=== PATIENT | male | born 1945 | race Caucasian/White ===

== ENCOUNTER 2017-08-13 02:13 | Emergency (ER) | payer MEDICARE, OTHER ==
[~2017-08-13] VITALS: Ht 167.6 cm; Wt 99.8 kg
[~2017-08-13 02:13] MED LIST: ACETAMINOPHEN325 M1 PO; AMIODARONE HCL200 MG PO; LEVOTHYROXINE75 MCG PO; LIOTHYRONINE SO5 MCG PO; METOPROLOL TART25 MG PO; MULTI-VITAMIN1 EACH; OMEPRAZOLE40 MG PO; SERTRALINE HCL50 MG PO; XARELTO20 MG PO
[2017-08-13] MEDS ORDERED: DULERA 200 MCG/13 GM INH (02:23)
[2017-08-13] MEDS ORDERED: TORSEMIDE10 MG PO (02:23)
[2017-08-13] MEDS ORDERED: PROAIR HFA INH8.5 GM INH (02:23)
[2017-08-13] MEDS ORDERED: GABAPENTIN300 MG PO (02:23)
[2017-08-13] MEDS ORDERED: TESTOSTERO200 MG/1 M IM (02:23)
[2017-08-13] MEDS ORDERED: XARELTO10 MG PO (02:23)
[2017-08-13] MEDS ORDERED: TETANUS/DIPHTHERIA TOX ADULT 0.5 ML SYR IM ONE (02:30)
--- NOTE | 2017-08-13 03:32 | Diagnostic Imaging Report ---
CHEST SINGLE (PORTABLE), 08/13/2017 2:33 AM Technique: CHEST SINGLE (PORTABLE) Comparison: 08/14/2016 Clinical history: Fall, found down Findings: Heart/mediastinum: Stable. Lungs/pleural spaces: Low lung volumes result in bibasilar vascular crowding/atelectasis. No pleural effusion or pneumothorax. Bones: No acute abnormality seen. Impression: Low lung volumes without acute abnormality Signed by: Dr Arlene Martin MD on 08/13/2017 3:29 AM
--- NOTE | 2017-08-13 03:34 | Diagnostic Imaging Report ---
PELVIS AP 1-2 VIEWS Comparison: None Clinical history: Fall, pain Findings: Moderate bilateral hip and visualized lumbosacral degenerative changes. No acute fracture or dislocation on single provided view. Impression: No acute bony abnormality Signed by: Dr Arlene Martin MD on 08/13/2017 3:30 AM
--- NOTE | 2017-08-13 03:54 | Diagnostic Imaging Report ---
EXAMINATION: Head CT without contrast. HISTORY:Fall. COMPARISON:None. TECHNIQUE: Multidetector axial images were obtained from the foramen magnum to the vertex without contrast. The images were reconstructed using brain and bone algorithms. Thin section brain images were reformatted into coronal and sagittal planes. Intravenous contrast: None IMAGE QUALITY: Acceptable. FINDINGS: Skull/scalp: Small left posterior parietal scalp edema/hematoma with few scattered foci of soft tissue emphysema. No acute depressed or displaced calvarial fracture. Parenchyma: Nonspecific few, scattered supratentorial white matter hypodensity are likely related to small vessel ischemic changes. No mass or acute major vascular territorial infarct. Arteries: No density suggestive of thrombosis. Dural sinuses: No abnormal density suggestive of thrombosis. Ventricles: Mild compensated dilatation due to volume loss. No hydrocephalus. Extra-axial spaces: Trace hyperdensity in anterior interhemispheric fissure, parasagittal frontal cortical sulci adjacent to the anterior interhemispheric fissure and cingulate sulcus represents trace acute subarachnoid hemorrhage. No midline shift or herniation. Brain volume: Generalized age-related cerebral volume loss. Craniocervical junction: No mass, Chiari malformation, or basilar invagination. Sella: No mass. Paranasal/mastoid sinuses: Imaged portions unremarkable. IMPRESSION: 1. Small left posterior parietal scalp edema/hematoma. No acute fracture. 2. Trace acute subarachnoid hemorrhage in the anterior interhemispheric fissure, cingulate sulcus and parasagittal frontal cortical sulci. No midline shift or herniation. 3. Mild supratentorial white matter microvascular ischemic changes. 4. Generalized age-related cerebral volume loss. Signed by: Dr. Estefany Glover M.D. on 08/13/2017 3:51 AM
--- NOTE | 2017-08-13 04:00 | Diagnostic Imaging Report ---
History: Fall. Comparison studies: None Technique: Axial images were obtained through the cervical region.. Coronal and sagittal images reconstructed from the axial data.. Intravenous contrast: None Findings: Fractures: None. Soft tissue injuries: None. Atlantoaxial articulation: Intact. Alignment: Loss of normal cervical lordosis is either positional or due to muscle spasm.. No scoliosis. Cervicomedullary junction: No abnormalities. The foramen magnum is patent. Soft tissues: No abnormalities. Vertebrae: No fractures, infection or neoplasm. Degenerative changes: C2-C3: Mild right and moderate left facet arthrosis without significant foraminal stenosis. C3-C4: Mild degenerative disc disease. Mild right foraminal stenosis due to facet and uncovertebral arthrosis. C4-C5: Mild degenerative disc disease. Moderate right and mild left foraminal stenosis due to facet and uncovertebral arthrosis. C5-C6: Moderate degenerative disc disease. Posterior disc osteophyte complex without canal stenosis. Mild right foraminal stenosis due to facet and uncovertebral arthrosis. C6-C7: Posterior disc osteophyte complex without canal stenosis. Mild right foraminal stenosis due to facet and uncovertebral arthrosis.. IMPRESSION: 1. No acute cervical spine fracture. Loss of normal cervical lordosis is either positional or due to muscle spasm. 2. Ligament, spinal cord and or vascular abnormalities cannot be excluded on the basis of this examination. 3. Cervical spondylosis as detailed above. Signed by: Dr. Estefany Glover M.D. on 08/13/2017 3:56 AM
[2017-08-13] MEDS ORDERED: AMINOCAPROIC ACID IV ONE (04:15)
[2017-08-13] MEDS ORDERED: SODIUM CHLORIDE 0.9% IV ONE (04:15)
[2017-08-13 04:25] LABS: BASOPHILS # (AUTO) 0.1 (0.0-0.1); BASOPHILS % 0.6 % (0.0-1.0); EOSINOPHILS # (AUTO) 0.1 (0.0-0.4); EOSINOPHILS % 0.8 % (0.0-6.0); HEMATOCRIT 50.8 % (38.2-49.6); HEMOGLOBIN 15.2 g/dL (14.0-18.0); LYMPHOCYTES % 11.8 % (18.0-39.1); MEAN CORPUSCULAR HEMOGLOBIN 24.4 pg (28-32); MEAN CORPUSCULAR HGB CONC 29.9 g/dL (31-35); MEAN CORPUSCULAR VOLUME 81.4 fL (81-99); MONOCYTES # (AUTO) 1.1 (0.2-0.8); MONOCYTES % 6.6 % (4.4-11.3); NEUTROPHILS # (AUTO) 13.6 (2.1-6.9); NEUTROPHILS % 79.2 % (38.7-80.0); PLATELET COUNT 285 x10e3/uL (140-360); RED BLOOD COUNT 6.24 x10e6/uL (4.3-5.7); RED CELL DISTRIBUTION WIDTH 18.7 % (11.7-14.4)
[2017-08-13 04:35] LABS: INR 1.53; PROTHROMBIN TIME 19.2 seconds (11.9-14.5)
[2017-08-13 04:45] LABS: ALBUMIN 3.3 g/dL (3.5-5.0); ALBUMIN/GLOBULIN RATIO 0.6 (0.8-2.0); ANION GAP 15.4 mmol/L (8-16); CALCIUM 9.5 mg/dL (8.4-10.2); CREATININE, SERUM 1.22 mg/dL (0.72-1.25); MAGNESIUM 2.2 MG/DL (1.3-2.1); POTASSIUM 4.4 mmol/L (3.5-5.1)
[2017-08-13 04:52] LABS: CREATINE KINASE MB 2.2 ng/mL (0.00-5.00); TROPONIN I 0.021 ng/mL (0-0.300)
== END 2017-08-13 04:45 | disposition short-term general hospital (02) ==
LOC: ER 02:13
DX: S06.6X0A Traumatic subarachnoid hemorrhage without loss of consciousness, initial encounter (principal); W18.09XA Striking against other object with subsequent fall, initial encounter; Y93.89 Activity, other specified; Y92.008 Other place in unspecified non-institutional (private) residence as the place of occurrence of the external cause; I48.91 Unspecified atrial fibrillation; E03.9 Hypothyroidism, unspecified; K21.9 Gastro-esophageal reflux disease without esophagitis
CPT/HCPCS: 36415; 70450; 71010; 72125; 72170; 80053; 82550; 82553; 83735; 84484; 85025; 85610; 85730; 86850; 86900; 90471; 90714; 99284; J7050

== ENCOUNTER → 2018-05-21 | Outpatient (CLI) | payer MEDICARE, OTHER ==
[~2018-05-21] MED LIST changes: +DULERA 200 MCG/13 GM INH; +GABAPENTIN300 MG PO; +PROAIR HFA INH8.5 GM INH; +TESTOSTERO200 MG/1 M IM; +TORSEMIDE10 MG PO; +XARELTO10 MG PO
--- NOTE | 2018-05-21 17:15 | Diagnostic Imaging Report ---
Exam: Thoracic spine 2 views History: Back pain Comparison: None. Findings: No fracture or malalignment. Multilevel degenerative disc disease with narrowing and endplate change. No abnormal soft tissue calcification or soft tissue defect. Impression: No acute osseous abnormality Moderate multilevel thoracic spondylosis Signed by: Dr. Samuel Estes M.D. on 05/21/2018 5:12 PM
== END ==
LOC: RAD 15:59
PROVIDERS: ATTEND Internal Medicine
DX: M54.6 Pain in thoracic spine (principal)
CPT/HCPCS: 72072

== ENCOUNTER → 2018-06-03 | Outpatient (CLI) | payer MEDICARE ==
--- NOTE | 2018-06-03 17:16 | Diagnostic Imaging Report ---
History:Right mid back pain Comparison studies: X-ray of the thoracic spine 2017 Technique: Sagittal T1, T2 and STIR without contrast; axial and coronal T2. Findings: Curvature: Normal kyphosis. No scoliosis. Paraspinal soft tissues: No signal abnormalities. Incidentally noted 1.0 cm epididymal inclusion cyst at the right paracentral mid back. Spinal cord: Normal in size and signal intensity through the tip of the conus at T12-L1 . Vertebrae: Normal in height and signal intensity. No fractures, infection or neoplasm. Disk spaces: Diffuse disc degeneration with low T2 signal and decreased intervertebral space. Disk herniations: None. Foramina: Patent. Spinal canal: Patent. IMPRESSION: 1. No acute abnormality. 2. Mild to moderate disc degeneration throughout the thoracic spine with patent canal and foramina Signed by: DR Raz Bills M.D. on 06/03/2018 5:12 PM
== END ==
LOC: MRI 15:09
PROVIDERS: ATTEND Internal Medicine
DX: M54.6 Pain in thoracic spine (principal)
CPT/HCPCS: 72146

== ENCOUNTER 2018-10-04 04:16 | Emergency (ER) | payer MEDICARE ==
[~2018-10-04] VITALS: Ht 167.6 cm; Wt 99.8 kg
--- OUTSIDE RECORDS SUMMARY | 2018-10-04 04:18 | XMS REPORT | Clinical Summary ---
Author [facility] Address Unknown Phone Unavailable Care Team Providers Care Train Planner Name Role Phone Chaitanya Camarena PCP Allergies No Known Allergies Medications End Date Status Medication Sig Dispensed Refills Start Date Active rivaroxaban (XARELTO) 20 Take by mouth 0 mg Tab tablet daily. Active omeprazole (PRILOSEC) 20 Take 20 mg by 0 MG capsule mouth daily. Active sertraline (ZOLOFT) 50 MG Take 100 mg 0 tablet by mouth daily . Active testosterone cypionate Inject 0 (DEPOTESTOTERONE intramuscular CYPIONATE) 200 mg/mL ly every 14 injection (fourteen) days. Active amiodarone (PACERONE) 200 200 mg. 0 MG tablet 6 Active metoprolol (LOPRESSOR) 25 Take 25 mg by 0 MG tablet mouth. 7 Active albuterol HFA (PROAIR INHALE 2 0 HFA) 90 mcg/actuation (TWO) PUFFS 7 inhaler EVERY FOUR HOURS, NEEDED Active gabapentin (NEURONTIN) Take 600 mg 0 600 MG tablet by mouth 4 (four) times daily. 08/26/2018 levothyroxine (SYNTHROID, Take 1 tablet 30 tablet 1 LEVOTHROID) 125 MCG (125 mcg 8 tablet total) by mouth Every morning on an empty stomach. 08/26/2018 torsemide (DEMADEX) 20 MG Take 1 tablet 30 tablet 1 tablet (20 mg total) 8 by mouth daily. Active Problems Problem Noted Date SOB (shortness of breath) on exertion 08/20/2017 Atrial fibrillation with RVR 08/14/2016 Encounters Care Team Description Date Type Specialty Kirk Callahan MD Paroxysmal atrial fibrillation (HCC); Essential (primary) hypertension; Other specified hypothyroidism; Other nonrheumatic aortic valve disorders; Other hyperlipidemia; Other snf (current) drug therapy 12/24/2017 Hospital Encounter Kirk Callahan MD Paroxysmal atrial fibrillation (HCC); Essential (primary) hypertension; Other specified hypothyroidism; Other nonrheumatic aortic valve disorders; Other hyperlipidemia; Other snf (current) drug therapy 12/24/2017 Orders Only Lab Kirk Callahan MD Paroxysmal atrial fibrillation (HCC) (Primary Dx); Essential (primary) hypertension; Other specified hypothyroidism; Other nonrheumatic aortic valve disorders; Other hyperlipidemia; Other snf (current) drug therapy 12/18/2017 Outside Orders Central Scheduling after 10/03/2017 Social History Date Tobacco Use Types Packs/Day Years Used Never Smoker Smokeless Tobacco: Former Snuff Quit: 08/13/2016 User Tobacco Cessation: Counseling Given: Yes Alcohol Use Drinks/Week oz/Week Comments Yes 6 Cans of 3.6 beer Sex Assigned at Date Recorded Not on file Industry Job Start Date Occupation Not on file Not on file Not on file Travel End Travel History Travel Start No recent travel history available. 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 CBC W/PLT COUNT & AUTO Routine 12/24/2017 Paroxysmal atrial DIFFERENTIAL 9:40 AM CDT fibrillation (HCC) Essential (primary) hypertension Other specified hypothyroidism Other nonrheumatic aortic valve disorders Other hyperlipidemia 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 CBC W/PLT COUNT & AUTO Routine 12/24/2017 Paroxysmal atrial DIFFERENTIAL 9:40 AM CDT fibrillation (HCC) Essential (primary) hypertension Other specified hypothyroidism Other nonrheumatic aortic valve disorders Other hyperlipidemia Other snf (current) drug therapy LIPID PANEL Routine 12/24/2017 Paroxysmal atrial 9:40 AM CDT fibrillation (HCC) Essential (primary) hypertension Other specified hypothyroidism Other nonrheumatic aortic valve disorders Other hyperlipidemia Other snf (current) drug therapy COMPREHENSIVE METABOLIC Routine 12/24/2017 Paroxysmal atrial PANEL 9:40 AM CDT fibrillation (HCC) Essential (primary) hypertension Other specified hypothyroidism Other nonrheumatic aortic valve disorders Other hyperlipidemia Other snf (current) drug therapy after 10/03/2017 Results * XR chest 2 views (12/24/2017 9:48 AM CDT) Narrative Performed At FINAL REPORT [facility] HISTORY : Paroxysmal atrial fibrillation [I48.0]. Comparison: 08/20/2017 Comment: Two views of the chest, PA and lateral, were obtained. The cardiac silhouette is within normal limits. There is no pleural effusion, pneumothorax or infiltrate. No lytic or blastic abnormalities. There is elevation of the right hemidiaphragm. Multilevel degenerative disc changes of the thoracolumbar spine are seen. There is atherosclerotic vascular disease. A lap band is in place. Impression: No acute cardiothoracic abnormalities. No significant interval change. Signed: Andrade Edwards MD Report Verified Date/Time:12/24/2017 10:33:32 Reading Location: [address] Radiology Reading Room Procedure Note Interface, External Ris In - 12/24/2017 10:35 AM CDT FINAL REPORT HISTORY : Paroxysmal atrial fibrillation [I48.0]. Comparison: 08/20/2017 Comment: Two views of the chest, PA and lateral, were obtained. The cardiac silhouette is within normal limits. There is no pleural effusion, pneumothorax or infiltrate. No lytic or blastic abnormalities. There is elevation of the right hemidiaphragm. Multilevel degenerative disc changes of the thoracolumbar spine are seen. There is atherosclerotic vascular disease. A lap band is in place. Impression: No acute cardiothoracic abnormalities. No significant interval change. Signed: Andrade Edwards MD Report Verified Date/Time: 12/24/2017 10:33:32 Reading Location: [address] Radiology Reading Room Performing Organization Address City/State/Zipcode Phone Number [facility] * CBC with platelet count + automated diff (12/24/2017 9:40 AM CDT) WBC 10.5 3.5 - 10.5 K/L [facility] RBC 5.56 4.63 - 6.08 M/L [facility] Hemoglobin 13.3 (L) 13.7 - 17.5 GM/DL [facility] Hematocrit 45.9 40.1 - 51.0 % [facility] MCV 82.6 79.0 - 92.2 fL [facility] MCH 23.9 (L) 25.7 - 32.2 pg [facility] MCHC 29.0 (L) 32.3 - 36.5 GM/DL [facility] RDW 19.9 (H) 11.6 - 14.4 % [facility] Platelets 301 150 - 450 K/CU MM [facility] MPV 9.6 9.4 - 12.4 fL [facility] nRBC 0 0 - 0 /100 WBC [facility] % Neutros 68 % [facility] % Lymphs 20 % [facility] % Monos 8 % [facility] % Eos 3 % [facility] % Baso 1 % [facility] # Neutros 7.12 (H) 1.78 - 5.38 K/L [facility] # Lymphs 2.05 1.32 - 3.57 K/L [facility] # Monos 0.85 (H) 0.30 - 0.82 K/L [facility] # Eos 0.27 0.04 - 0.54 K/L [facility] # Baso 0.11 (H) 0.01 - 0.08 K/L [facility] Immature 1 0 - 1 % [facility] Granulocytes-Relative [facility] Specimen Blood Performing Organization Address City/[facility] Phone Number [facility] [phone] [place] [address] [facility] * Lipid panel (12/24/2017 9:40 AM CDT) Triglycerides 73 mg/dL [facility] Cholesterol 214 mg/dL [facility] HDL 56 mg/dL [facility] LDL Calculated 143 mg/dL [facility] Specimen Blood Narrative Performed At Triglyceride Reference Range: [facility] Low Risk <150 [facility] [id number] High Risk 200-499 Very High Risk>=500 Cholesterol Reference Range: Low Risk <200 [id number] High Risk>240 HDL Cholesterol Reference Range: Low Risk >=60 High Risk <40 LDL Cholesterol Reference Range: Optimal<100 Near [id number] Very High >=190 Performing Organization Address City/State/Zipcode Phone Number [facility] [address] [place] [address] [facility] * Comprehensive metabolic panel (12/24/2017 9:40 AM CDT) Protein, Total 8.4 (H) 6.0 - 8.3 gm/dL [facility] Albumin 4.2 3.5 - 5.0 g/dL [facility] Alkaline Phosphatase 77 40 - 150 U/L [facility] Total Bilirubin 0.5 0.2 - 1.2 mg/dL [facility] Sodium 141 136 - 145 meq/L [facility] Potassium 5.4 (H) 3.5 - 5.1 meq/L [facility] Chloride 101 98 - 107 meq/L [facility] CO2 27 22 - 29 meq/L [facility] BUN 30 (H) 7 - 21 mg/dL [facility] Creatinine 1.63 (H) 0.57 - 1.25 mg/dL [facility] Glucose 115 (H) 70 - 105 mg/dL [facility] Calcium 10.0 8.4 - 10.2 mg/dL [facility] AST 26 5 - 34 U/L [facility] ALT 10 6 - 55 U/L [facility] EGFR 42Comment: ESTIMATED GFR IS mL/min/1.[address] [facility] NOT ACCURATE CREATININE [facility] CLEARANCE IN PREDICTING GLOMERULAR FILTRATION RATE. ESTIMATED GFR IS NOT APPLICABLE FOR DIALYSIS PATIENTS. Specimen Blood Performing Organization Address City/State/Zipcode Phone Number [facility] [address] [place] [phone] [facility] after 10/03/2017 Insurance Payer Benefit Subscriber ID Type Phone Address Plan / Group [facility] xxxxxxxxx MEDICARE MGD CARE MEDICARE HMO Advance Directives For more information, please contact: [address] [phone] Date Inactivated Comments Code Status Date Activated 08/25/2017 5:30 PM Full Code 08/24/2017 3:57 AM This code status was determined by: Patient 08/15/2016 4:35 PM Full Code 08/14/2016 11:45 PM This code status was determined by: Patient
--- OUTSIDE RECORDS SUMMARY | 2018-10-04 04:18 | XMS REPORT | Clinical Summary ---
Author Author [employer] Address Unknown Phone Unavailable Care Team Providers Care Otolaryngology Teacher Name Role Phone Chaitanya Camarena MD PCP Allergies No Known Allergies Medications End Date Status Medication Sig Dispensed Refills Start Date Active XARELTO 20 mg tablet Take 20 mg by 1 mouth once 7 daily. with food Active torsemide (DEMADEX) 10 MG Take 10 mg by 3 tablet mouth every 7 morning. Active omeprazole (PriLOSEC) 20 Take 20 mg by 1 MG capsule mouth once 7 daily. Active levothyroxine (SYNTHROID, Take 125 mcg 2 LEVOXYL) 75 mcg tablet by mouth once 7 daily. Active sertraline (ZOLOFT) 100 TAKE 1 TABLET 0 MG tablet BY MOUTH 7 EVERY DAY ORALLY 90 Active testosterone cypionate INJECT 1 ML 3 (DEPOTESTOTERONE ONCE EVERY 2 7 CYPIONATE) 200 mg/mL WEEKS injection Active valsartan (DIOVAN) 80 MG Take 80 mg by 0 tablet mouth 2 (two) times a day. Active albuterol (PROAIR HFA) 90 Inhale 2 0 mcg/actuation inhaler puffs every 6 (six) hours as needed for wheezing. Active budesonide-formoterol Inhale 2 0 (SYMBICORT) 160-4.5 puffs 2 (two) mcg/actuation inhaler times a day. 04/22/2019 Active carbidopa-levodopa Take 1 tablet 60 tablet 11 (SINEMET CR) 50-200 mg by mouth 2 8 per CR tabletIndications: (two) times a Parkinson disease (HCC) day. Active gabapentin (NEURONTIN) TAKE 1 TABLET 120 tablet 2 600 mg tabletIndications: BY MOUTH FOUR 8 Neuropathy TIMES A DAY Active gabapentin (NEURONTIN) TAKE 1 TABLET 120 tablet 2 600 mg tabletIndications: BY MOUTH FOUR 8 Neuropathy TIMES A DAY 02/06/2018 Discontinued PROAIR HFA 90 INHALE 2 11 mcg/actuation inhaler (TWO) PUFFS 7 EVERY FOUR HOURS, NEEDED 12/27/2017 Discontinued amIODarone (PACERONE) 200 Take 200 mg 3 MG tablet by mouth once 7 daily. 12/27/2017 Discontinued DULERA 200-5 Inhale 2 11 mcg/actuation inhaler puffs 2 (two) 7 times a day. 10/05/2017 Discontinued gabapentin (NEURONTIN) Take 600 mg 2 600 mg tablet by mouth 4 7 (four) times a day. 12/27/2017 Discontinued diltiazem CD (CardIZEM TAKE 1 4 CD) 180 MG 24 hr capsule CAPSULE (180 8 MG) BY MOUTH DAILY IN THE MORNING 02/06/2018 Discontinued aspirin (ECOTRIN) 81 MG Take 81 mg by 0 enteric coated tablet mouth daily. 11/22/2017 Discontinued carbidopa-levodopa Take 1 tablet 90 tablet 11 (SINEMET) 25-100 mg per by mouth 3 8 tablet (three) times a day. 12/25/2017 Discontinued gabapentin (NEURONTIN) Take 1 tablet 120 tablet 2 600 mg tabletIndications: (600 mg 8 Neuropathy total) by mouth 4 (four) times a day. 11/22/2017 Discontinued carbidopa-levodopa Take 1 tablet 60 tablet 11 (SINEMET CR) 25-100 mg by mouth 2 8 per CR tablet (two) times a day. 04/22/2018 Discontinued carbidopa-levodopa Take 1 tablet 60 tablet 11 (SINEMET CR) 50-200 mg by mouth 2 8 per CR tablet (two) times a day. 03/18/2018 Discontinued gabapentin (NEURONTIN) TAKE 1 TABLET 120 tablet 2 600 mg tabletIndications: BY MOUTH FOUR 8 Neuropathy TIMES A DAY 01/27/2018 traMADol (ULTRAM) 50 mg Take 1 tablet 60 tablet 0 tabletIndications: Other (50 mg total) 8 osteoarthritis of spine, by mouth cervical region every 12 (twelve) hours as needed for severe pain for up to 31 days. 01/26/2018 cyclobenzaprine Take 1 tablet 60 tablet 3 (FLEXERIL) 5 mg tablet (5 mg total) 8 by mouth every 12 (twelve) hours as needed for muscle spasms for up to 30 days. 05/30/2018 Discontinued gabapentin (NEURONTIN) TAKE 1 TABLET 120 tablet 2 600 mg tabletIndications: BY MOUTH FOUR 8 Neuropathy TIMES A DAY Active Problems Not on file Encounters Care Team Description Date Type Specialty Nia Banuelos MA Neuropathy 05/30/2018 Refill Neurology Anabell Fregoso MD Neuropathy 05/04/2018 Refill Neurology Nia Banuelos MA Parkinson disease (Primary Dx) 04/22/2018 Refill Neurology Anabell Fregoso MD Neuropathy 03/18/2018 Refill Neurology Anabell Fregoso MD Parkinson's disease (Primary Dx) 02/06/2018 Office Visit Neurology Anabell Fregoso MD Other osteoarthritis of spine, cervical region (Primary Dx) 12/27/2017 Office Visit Neurology Anabell Fregoso MD Neuropathy 12/25/2017 Refill Neurology Anabell Fregoso MD Cervical stenosis of spine; Myelopathy 12/07/2017 Hospital Radiology Encounter Anabell Fregoso MD Fatigue, unspecified type (Primary Dx); Cervical stenosis of spine; Myelopathy 11/22/2017 Office Visit Neurology Nia Banuelos MA Neuropathy (Primary Dx) 10/05/2017 Refill Neurology after 10/03/2017 Family History Relation Name Status Comments Father Mother Social History Date Tobacco Use Types Packs/Day Years Used Former Smoker Smokeless Tobacco: Current User Alcohol Use Drinks/Week oz/Week Comments Yes 28 Cans of 21.0 beer 7 Standard drinks or equivalent Sex Assigned at Date Recorded Not on file Industry Job Start Date Occupation Not on file Not on file Not on file Travel End Travel History Travel Start No recent travel history available. Last Filed Vital Signs Time Taken Vital Sign Reading 02/06/2018 11:27 AM CDT Blood Pressure 117/76 02/06/2018 11:27 AM CDT Pulse 85 02/06/2018 11:27 AM CDT Temperature 37 C (98.6 F) 02/06/2018 11:27 AM CDT Respiratory Rate 20 - Oxygen Saturation - - Inhaled Oxygen - Concentration 02/06/2018 11:27 AM CDT Weight 103 kg (228 lb) 02/06/2018 11:27 AM CDT Height 167.6 cm (5' 6") 02/06/2018 11:27 AM CDT Body Mass Index 36.8 Plan of Treatment Health Maintenance Due Date Last Done Comments COLON CANCER SCREENING 1995 SHINGLES VACCINES (#1) 1995 65+ PNEUMOCOCCAL VACCINE 2010 (1 of 2 - PCV13) PNEUMOCOCCAL 2010 POLYSACCHARIDE VACCINE AGE 65 AND OVER INFLUENZA VACCINE 03/13/2018 Procedures Comments Procedure Name Priority Date/Time Associated Diagnosis MRI CERVICAL SPINE WO Routine 12/07/2017 Cervical stenosis of CONTRAST 1:03 PM CDT spine Myelopathy after 10/03/2017 Results * MRI Cervical Spine Wo Contrast (12/07/2017 1:03 PM CDT) Narrative Performed At [facility] EXAMINATION:MRI CERVICAL SPINE WO CONTRAST CLINICAL HISTORY:M48.02 Spinal stenosiscervical region, G95.9 Disease of spinal cordunspecified, Ataxia COMPARISON: None. FINDINGS: Noncontrast MRI of the cervical spine is interpreted. The cervical cord is normal in volume and in signal intensity. Bone marrow signal is normal. C2-3: Moderate left facet arthrosis. Mild left foraminal stenosis. C3-4: Moderate loss of disc height. Slight grade 1 retrolisthesis. Mild bilateral facet arthrosis. Mild bilateral foraminal stenosis. Mild canal stenosis. C4-5: Prominent right facet arthrosis. Trace grade 1 anterolisthesis. Minimal disc bulge. Moderate right foraminal stenosis. C5-6: Moderate loss of disc height. Mild disc bulge. Mild bilateral vertebral hypertrophy. Mild bilateral facet arthrosis. Moderate right and mild left foraminal stenosis. Mild canal stenosis. C6-7: Moderate loss of disc height. Slight grade 1 retrolisthesis. Minimal dorsal endplate spurring. Mild uncovertebral hypertrophy bilaterally. Mild bilateral foraminal stenosis. Mild canal narrowing. C7-T1: Mild bilateral facet arthrosis. Trace grade 1 anterolisthesis. The paraspinous soft tissues are unremarkable. IMPRESSION: Moderate cervical spondylosis. Multilevel mild canal narrowing. Moderate spondylotic foraminal stenosis on the right at C4-5 and C5-6. [facility]-[id number] Procedure Note Hm Interface, Radiology Results 12/07/2017 2:00 PM CDT EXAMINATION: MRI CERVICAL SPINE WO CONTRAST CLINICAL HISTORY: M48.02 Spinal stenosis cervical region, G95.9 Disease of spinal cord unspecified, Ataxia COMPARISON: None. FINDINGS: Noncontrast MRI of the cervical spine is interpreted. The cervical cord is normal in volume and in signal intensity. Bone marrow signal is normal. C2-3: Moderate left facet arthrosis. Mild left foraminal stenosis. C3-4: Moderate loss of disc height. Slight grade 1 retrolisthesis. Mild bilateral facet arthrosis. Mild bilateral foraminal stenosis. Mild canal stenosis. C4-5: Prominent right facet arthrosis. Trace grade 1 anterolisthesis. Minimal disc bulge. Moderate right foraminal stenosis. C5-6: Moderate loss of disc height. Mild disc bulge. Mild bilateral vertebral hypertrophy. Mild bilateral facet arthrosis. Moderate right and mild left foraminal stenosis. Mild canal stenosis. C6-7: Moderate loss of disc height. Slight grade 1 retrolisthesis. Minimal dorsal endplate spurring. Mild uncovertebral hypertrophy bilaterally. Mild bilateral foraminal stenosis. Mild canal narrowing. C7-T1: Mild bilateral facet arthrosis. Trace grade 1 anterolisthesis. The paraspinous soft tissues are unremarkable. IMPRESSION: Moderate cervical spondylosis. Multilevel mild canal narrowing. Moderate spondylotic foraminal stenosis on the right at C4-5 and C5-6. [facility]-[id number] Performing Organization Address City/State/Zipcode Phone Number [facility] [address] [place] [address] after 10/03/2017 Insurance Payer Benefit Subscriber ID Type Phone Address Plan / Group [facility] MEDICARE [facility] xxxxxxxxx [facility] MEDICARE COMPLETE Advance Directives Patient has advance care planning documents on file. For more information, jesus esparza contact: Rock Santana [address] [place] [address]
--- OUTSIDE RECORDS SUMMARY | 2018-10-04 04:20 | XMS REPORT | Continuity of Care Document ---
Author Author [facility] Interface Address Unknown Phone Unavailable Problems Problem Status Onset Date Classification Date Reported Comments Source OPEN ABD WOUND Active 09/25/2018 [facility] WOUND ABD Active 09/10/2018 [facility] PERITONEAL ABSCESS Active 09/03/2018 [facility] PERITONITIS Active 09/03/2018 [facility] WOUND Active 08/07/2018 [facility] CUTANEOUS ABSCESS OF ABDOMINAL WALL Active 07/16/2018 [facility] DX: [id number] (PRIMARY) HYPERTENSION Active 06/24/2018 [facility] FEVER/ ABDOMINAL Active 04/04/2018 [facility] Traumatic subdural hemorrhage with loss of consciousness of unspecified duration, initial encounter 09/04/2017 12/06/2017 [facility] [place] HIP Active 08/13/2017 [facility] [place] LFLT TRANSFER #[id number] Active 08/13/2017 [facility] SAH/SCALP LAC Active 08/13/2017 [facility] BEDDED OUTPATIENT/EVALUATION FOR DRAIN P Active 02/16/2017 [facility] OUTPATIENT/EVALUATION FRO DRAIN PLACEMEN Active 02/07/2017 [facility] VENTRAL HERNIA Active 09/19/2016 [facility] SBO/HERNIA Active 09/07/2016 [facility] Atrial fibrillation Resolved Problem 12/06/2017 [facility] [place] CKD stage 3, GFR 30-59 ml/min(<span ID="[id number]">Confirmed</span>) Resolved Problem 12/06/2017 [facility] [place] Facial neuropathy Resolved Problem 12/06/2017 [facility] [place] GERD (<span ID="[id number]">Confirmed</span>) Resolved Problem 12/06/2017 [facility] [place] HTN (<span ID="[id number]">Confirmed</span>) Resolved Problem 12/06/2017 [facility] [place] Hypothyroid Resolved Problem 12/06/2017 [facility], [facility] [place] Incisional hernia Resolved Problem 12/06/2017 [facility], [facility] [place] Obesity Active Problem 12/06/2017 [facility], [facility] [place] Atrial fibrillation Resolved Problem 09/08/2018 [facility] CKD stage 3, GFR 30-59 ml/min(<span ID="[id number]">Confirmed</span>) Resolved Problem 09/08/2018 [facility] COPD (<span ID="[id number]">Confirmed</span>) Active Problem 09/08/2018 [facility] Facial neuropathy Resolved Problem 09/08/2018 [facility] GERD (<span ID="[id number]">Confirmed</span>) Active Problem 09/08/2018 [facility] HTN (<span ID="[id number]">Confirmed</span>) Resolved Problem 09/08/2018 [facility] Hypothyroid Resolved Problem 09/08/2018 [facility] Incisional hernia Resolved Problem 09/08/2018 [facility] Obesity Active Problem 09/08/2018 [facility] YANDEL (<span ID="[id number]">Confirmed</span>)<sup>1</sup> Active Problem 09/08/2018 INSTRUCTED PT TO BRING CPAP TO DOS [facility] Peritonitis, unspecified 09/08/2018 [facility] Final: Ventral hernia without obstruction or gangrene 10/12/2016 [facility] NONTRAUMATIC ACUTE SUBDURAL HEMORRHAGE Active [facility] PERITONITIS, UNSPECIFIED Active [facility] SEPSIS, UNSPECIFIED ORGANISM Active [facility] OTHER SPECIFIED CONGENITAL DEFORMITIES Active [facility] VENTRAL HERNIA WITHOUT OBSTRUCTION OR GA Active [facility] Medications Medication Details Route Status Patient Instructions Ordering Provider Order Date Source *RN-DO NOT give 21:00 vanc on 09/06 till trough drawn *RN-DO NOT give 21:00 vanc on 09/06 till trough drawn, Attn:RN, Drug form: MISC, Route: MISC, ONCE, 09/06/18 20:00:00 MOLDER, Stop date: 09/06/18 20:00:00 MOLDER Inactive 09/07/2018 [facility] cefepime 1 g injection 1 gm, IV, Q8H, X 6 week, # 126 bag, 0 Refill(s), given to patient Active 09/06/2018 [facility] vancomycin 1.25 g/150 mL-NaCl 0.9% intravenous solution 1.25 gm, IV, Q24H, X 6 week, # 42 bag, 0 Refill(s), given to patient Active 09/06/2018 [facility] Xarelto 20 mg, 1 tab, Route: PO, Drug form: TAB, QPM, Dosing Weight 105.966, kg, Start date: 09/05/18 17:00:00 MOLDER, Duration: 30 day, Stop date: 10/04/18 17:00:00 CSTNotes: (Same as: Xarelto) Administer with food No Longer Active 09/05/2018 [facility] V[place] 8.4 gm, Route: PO, Drug form: PDR/REC, Daily, Dosing Weight 105.966, kg, Start date: 09/05/18 9:00:00 MOLDER, Duration: 30 day, Stop date: 10/04/18 9:00:00 MOLDER No Longer Active 09/05/2018 [facility] valsartan 80 mg, 1 tab, Route: PO, Drug form: TAB, BID, Dosing Weight 105.966, kg, Start date: 09/05/18 9:00:00 MOLDER, Duration: 30 day, Stop date: 10/04/18 17:00:00 CSTNotes: Same as Diovan No Longer Active 09/05/2018 [facility] pantoprazole 40 mg, 1 tab, Route: PO, Drug form: ECTAB, Daily, Dosing Weight 105.966, kg, Start date: 09/05/18 9:00:00 MOLDER, Duration: 30 day, Stop date: 10/04/18 9:00:00 CSTNotes: Tablet should not be chewed or c rushed. (Same as: Protonix) No Longer Active 09/05/2018 [facility] torsemide 20 mg, 1 tab, Route: PO, Drug form: TAB, Daily, Dosing Weight 105.966, kg, Start date: 09/05/18 9:00:00 MOLDER, Duration: 30 day, Stop date: 10/04/18 9:00:00 CSTNotes: (Same As: Demadex) No Longer Active 09/05/2018 [facility] Thyroxine 125 microgram, 1 tab, Route: PO, Drug form: TAB, QAM, Dosing Weight 105.966, kg, Start date: 09/05/18 9:00:00 MOLDER, Duration: 30 day, Stop date: 10/04/18 9:00:00 CSTNotes: Take 1 hour before or 2 hours after meal; Enteral feeds may interefere with the absorption of this medication. (Same as:Levothroid) No Longer Active 09/05/2018 [facility] Carbidopa 50 MG / Levodopa 200 MG Extended Release Tablet 1 tab, Route: PO, Drug Form: ERTAB, Dosing Weight 105.966, kg, BID, Start date: 09/05/18 9:00:00 MOLDER, Duration: 30 day, Stop date: 10/04/18 17:00:00 CSTNotes: "Do Not Crush" Take with milk or food. (Same As: Sinemet CR) No Longer Active 09/05/2018 [facility] Symbicort 160/4.5 inhalation aerosol with adapter 2 puff, Route: INHALATION, Drug Form: AERO/A, Dosing Weight 105.966, kg, BID, Start date: 09/05/18 9:00:00 MOLDER, Duration: 30 day, Stop date: 10/04/18 17:00:00 MOLDER No Longer Active 09/05/2018 [facility] cefepime 1 gm, Route: IVPB, [id number], Dosing Weight 105.966, kg, (CrCl >/=50 ml/min), Start date: 09/05/18 2:00:00 MOLDER, Duration: 7 day, Stop date: 09/11/18 18:00:00 MOLDER, ABX Indication: Skin/Soft Tissue InfectionNotes: (Same As: Maxipime) MEDICATION WASTE Product Size: 1000 mg Product Wasted: ___ mg No Longer Active 09/05/2018 [facility] ATTN RN please bring pt home med to pharmacy to be labeled ATTN RN please bring pt home med to pharmacy to be labeled, ATTN RN, Drug form: MISC, Route: MISC, QSHIFT, 09/05/18 0:00:00 MOLDER, Duration: 30 day, Stop date: 10/04/18 16:00:00 MOLDER No Longer Active 09/05/2018 [facility] gabapentin 600 MG Oral Tablet 600 mg, 2 cap, Route: PO, Drug form: CAP, Q6H, Dosing Weight 105.966, kg, Start date: 09/05/18 0:00:00 MOLDER, Duration: 30 day, Stop date: 10/04/18 18:00:00 CSTNotes: (Same as: Neurontin) No Longer Active 09/05/2018 [facility] Sertraline 100 mg, 1 tab, Route: PO, Drug form: TAB, Bedtime, Dosing Weight 105.966, kg, Start date: 09/04/18 21:00:00 MOLDER, Duration: 30 day, Stop date: 10/03/18 21:00:00 CSTNotes: (Same as: Zoloft) No Longer Active 09/05/2018 [facility] albuterol 2.5 mg, 3.01 mL, Route: NEB, Drug form: SOLN, RQ6H, Start date: 09/04/18 20:00:00 MOLDER, Duration: 30 day, Stop date: 10/04/18 14:00:00 CSTNotes: SEE RT DOCUMENTATION (Same as: Proventil) No Longer Active 09/05/2018 [facility] Pulmicort Respules 0.5 mg, 2 mL, Route: NEB, Drug form: SUSP, RBID, Start date: 09/04/18 20:00:00 MOLDER, Duration: 30 day, Stop date: 10/04/18 8:00:00 CSTNotes: (Same As: Pulmicort) No Longer Active 09/05/2018 [facility] Vancomycin 1 ea, Route: MISC, ONCALL, Dosing Weight 105.966, kg, Start date: 09/04/18 20:00:00 MOLDER, Duration: 7 day, Stop date: 09/11/18 19:59:00 MOLDER, Pharmacy to dose, ABX Indication: Skin/Soft Tissue Infection Inactive 09/05/2018 [facility] vancomycin + Sodium Chloride 0.9% IV 250 mL 1,250 mg, Route: IVPB, [id number], Start date: 09/04/18 20:00:00 MOLDER, Duration: 7 day, Stop date: 09/10/18 21:00:00 MOLDER, ABX Indication: Intra-abdominal InfectionNotes: TIME CRITICAL MEDICATION (Same As: Vancocin) Infusion rate 2001 mg: infuse over 2.5 hours For adult patients only: Round to nearest 250 mg per Medical Staff approval MEDICATION WASTE Product Size: 1000 mg Product Wasted: ___ mg No Longer Active 09/05/2018 [facility] NS 1,000 mL 1,000 mL, Rate: 75 ml/hr, Infuse over: 13.3 hr, Route: IV, Dosing Weight 105.966 kg, Total Volume: 1,000, Start date: 09/04/18 19:15:00 MOLDER, Duration: 30 day, Stop date: 10/04/18 19:14:00 MOLDER, 2.22, m2 No Longer Active 09/05/2018 [facility] albuterol 2.5 mg, 3.01 mL, Route: NEB, Drug form: SOLN, RQ6H, PRN Wheezing, Start date: 09/04/18 18:16:00 MOLDER, Duration: 30 day, Stop date: 10/04/18 18:15:00 CSTNotes: SEE RT DOCUMENTATION (Same as: Proventil) No Longer Active 09/05/2018 [facility] cefepime 1 gm, Route: IVPB, [id number], Dosing Weight 105.966, kg, (CrCl 30 - 49 ml/min), Start date: 09/04/18 18:00:00 MOLDER, Duration: 10 day, Stop date: 09/14/18 6:00:00 MOLDER, ABX Indication: Intra-abdominal InfectionNotes: (Same As: Maxipime) MEDICATION WASTE Product Size: 1000 mg Product Wasted: ___ mg Inactive 09/05/2018 [facility] Vancomycin 1,000 mg, Route: IVPB, Drug form: INJ, [id number], Dosing Weight 105.966, kg, Start date: 09/04/18 18:00:00 MOLDER, Duration: 10 day, Stop date: 09/14/18 6:00:00 MOLDER, ABX Indication: Intra-abdominal Infection Inactive 09/05/2018 [facility] 200 ACTUAT Albuterol 0.09 MG/ACTUAT Metered Dose Inhaler [ProAir HFA] 180 microgram, 2 puff, Route: INHALER, Drug Form: AERO/A, Dosing Weight 105.966, kg, Q6H, PRN, Start date: 09/04/18 17:34:00 MOLDER, Duration: 30 day, Stop date: 10/04/18 17:33:00 MOLDER, asthma Inactive 09/04/2018 [facility] tramadol hydrochloride 50 MG Oral Tablet 50 mg, 1 tab, Route: PO, Drug form: TAB, Q6H, Dosing Weight 105.966, kg, PRN Pain Score 7-10, Start date: 09/04/18 17:34:00 MOLDER, Duration: 30 day, Stop date: 10/04/18 17:33:00 CSTNotes: Not to exceed 400mg/day. (Same As: Ultram) No Longer Active 09/04/2018 [facility] Omnipaque 300 injectable solution 100 mL, Route: IVP, Drug Form: SOLN, Dosing Weight 105.966, kg, ONCALL, GFR > 45 mL/min, Start date: 09/04/18 16:00:00 MOLDER, Duration: 1 doses or timesNotes: (Same as:Omnipaque 300). WASTE: F/P - Black; E - POPVOX Trash Bin No Longer Active 09/04/2018 [facility] Acetaminophen 325 MG / Hydrocodone Bitartrate 10 MG Oral Tablet [[place] 10/325] 1 tab, PO, Q6H, PRN for pain, # 24 tab, 0 Refill(s) Active 09/04/2018 [facility] Triamcinolone Acetonide 0.001 MG/MG Oral Paste 1 appl, PO, TID, # 5 gm, 0 Refill(s) Active 09/04/2018 [facility] Nicotine 21 mg, 1 patch, Route: TOP, Drug form: ERFILM, Daily, Dosing Weight 102.273, kg, PRN as needed for smoking cessation, Start date: 09/03/18 14:32:00 MOLDER, Duration: 30 day, Stop date: 10/03/18 14:31:00 CS TNotes: (Same as: Habitrol) "Remove old patch before application of new patch" WASTE: F/P - P Waste Black; E - P Waste Black No Longer Active 09/03/2018 [facility] Seroquel 25 mg, 1 tab, Route: PO, Drug form: TAB, BID, Dosing Weight 102.273, kg, PRN Agitation, Start date: 09/03/18 14:32:00 MOLDER, Duration: 30 day, Stop date: 10/03/18 14:31:00 CSTNotes: (Same as: SEROquel) No Longer Active 09/03/2018 [facility] Hydralazine 10 mg, 0.5 mL, Route: IVP, Drug form: INJ, Q4H, Dosing Weight 102.273, kg, PRN Hypertension, Priority: Routine, Start date: 09/03/18 14:32:00 MOLDER, Duration: 30 day, Stop date: 10/03/18 14:31:00 CSTNotes: (Same as: Apresoline) Push over 5 minutes No Longer Active 09/03/2018 [facility] magnesium citrate 58.2 MG/ML Oral Solution 300 ml, Route: PO, Drug Form: LIQ, Dosing Weight 102.273, kg, ONCE, PRN Constipation, Start date: 09/03/18 14:32:00 CSTNotes: (Same as: Citrate of Magnesia) Concentration: 1.745 gm / 30 mL No Longer Active 09/03/2018 [facility] Acetaminophen 325 MG / Hydrocodone Bitartrate 5 MG Oral Tablet [[place] 5/325] 1 tab, Route: PO, Drug Form: TAB, Dosing Weight 102.273, kg, Q6H, PRN Pain Score 1-3, Start date: 09/03/18 14:32:00 MOLDER, Duration: 30 day, Stop date: 10/03/18 14:31:00 CSTNotes: (Same as: [place] 325/5) Do not exceed 4gm/day of acetaminophen. No Longer Active 09/03/2018 [facility] Morphine 2 mg, 1 mL, Route: IVP, Drug form: SOLN, Q4H, Dosing Weight 102.273, kg, PRN Pain Score 7-10, Start date: 09/03/18 14:32:00 MOLDER, Duration: 30 day, Stop date: 10/03/18 14:31:00 MOLDER No Longer Active 09/03/2018 [facility] Ondansetron 4 mg, 2 mL, Route: IVP, Drug form: INJ, Q6H, Dosing Weight 102.273, kg, PRN Nausea & Vomiting, Start date: 09/03/18 14:32:00 MOLDER, Duration: 30 day, Stop date: 10/03/18 14:31:00 CSTNotes: (Same as: Zofran) MEDICATION WASTE Product Size: 4 mg Product Wasted: ___ mg No Longer Active 09/03/2018 [facility] Bisacodyl 10 mg, 1 supp, Route: IL, Drug form: SUPP, Daily, Dosing Weight 102.273, kg, PRN Constipation, Start date: 09/03/18 14:32:00 MOLDER, Duration: 30 day, Stop date: 10/03/18 14:31:00 CSTNotes: (Same As: Dulcolax, Bisco-Lax) No Longer Active 09/03/2018 [facility] Dextrose 50% Syringe 12.5 gm, 25 mL, Route: IVP, Drug Form: INJ, Dosing Weight 102.273, kg, PRN, PRN Blood Glucose Results, Start date: 09/03/18 14:32:00 MOLDER, Duration: 30 day, Stop date: 10/03/18 14:31:00 MOLDER No Longer Active 09/03/2018 [facility] POLYETHYLENE GLYCOL 3350 17 gm, 1 pkt, Route: PO, Drug form: PWDR, Daily, Dosing Weight 102.273, kg, PRN Constipation, Start date: 09/03/18 14:32:00 MOLDER, Duration: 30 day, Stop date: 10/03/18 14:31:00 CSTNotes: Dissolve in 8 oz of water or juice. (Same as: Miralax) No Longer Active 09/03/2018 [facility] Glucagon 1 mg, Route: IM, Drug form: PDR/INJ, PRN, Dosing Weight 102.273, kg, PRN Blood Glucose Results, Start date: 09/03/18 14:32:00 MOLDER, Duration: 30 day, Stop date: 10/03/18 14:31:00 MOLDER No Longer Active 09/03/2018 [facility] Melatonin 3 mg, 1 tab, Route: PO, Drug form: TAB, Bedtime, Dosing Weight 102.273, kg, PRN Insomnia, Start date: 09/03/18 14:32:00 MOLDER, Duration: 30 day, Stop date: 10/03/18 14:31:00 CSTNotes: (Same as: Melatonin) No Longer Active 09/03/2018 [facility] Diphenhydramine 25 mg, 1 tab, Route: PO, Drug form: TAB, Q6H, Dosing Weight 102.273, kg, PRN as needed for allergy symptoms, Start date: 09/03/18 14:32:00 MOLDER, Duration: 30 day, Stop date: 10/03/18 14:31:00 MOLDER No Longer Active 09/03/2018 [facility] Acetaminophen 650 mg, 2 tab, Route: PO, Drug form: TAB, Q6H, Dosing Weight 102.273, kg, PRN For Temp > 100.4 F, Start date: 09/03/18 14:32:00 MOLDER, Duration: 30 day, Stop date: 10/03/18 14:31:00 CSTNotes: Do not ex ceed 4 gm/day. (Same as: Tylenol) No Longer Active 09/03/2018 [facility] Trazodone 50 mg, 1 tab, Route: PO, Drug form: TAB, Bedtime, Dosing Weight 102.273, kg, PRN Insomnia, Start date: 09/03/18 14:32:00 MOLDER, Duration: 30 day, Stop date: 10/03/18 14:31:00 CSTNotes: (Same As: Desyrel) No Longer Active 09/03/2018 [facility] magnesium citrate 58.2 MG/ML Oral Solution 300 ml, Route: PO, Dosing Weight 102.273, kg, ONCE, PRN Constipation, Start date: 09/03/18 14:28:00 MOLDER No Longer Active 09/03/2018 [facility] Acetaminophen 325 MG / Hydrocodone Bitartrate 5 MG Oral Tablet [[place] 5/325] 1 tab, Route: PO, Drug Form: TAB, Dosing Weight 102.273, kg, Q6H, PRN Pain Score 1-3, Start date: 09/03/18 14:28:00 MOLDER, Duration: 30 day, Stop date: 10/03/18 14:27:00 MOLDER No Longer Active 09/03/2018 [facility] Morphine 2 mg, Route: IVP, Q4H, Dosing Weight 102.273, kg, PRN Pain Score 7-10, Start date: 09/03/18 14:28:00 MOLDER, Duration: 30 day, Stop date: 10/03/18 14:27:00 MOLDER No Longer Active 09/03/2018 [facility] Seroquel 25 mg, Route: PO, BID, Dosing Weight 102.273, kg, PRN Agitation, Start date: 09/03/18 14:28:00 MOLDER, Duration: 30 day, Stop date: 10/03/18 14:27:00 MOLDER No Longer Active 09/03/2018 [facility] Hydralazine 10 mg, Route: IVP, Q4H, Dosing Weight 102.273, kg, PRN Hypertension, Priority: Routine, Start date: 09/03/18 14:28:00 MOLDER, Duration: 30 day, Stop date: 10/03/18 14:27:00 MOLDER No Longer Active 09/03/2018 [facility] Nicotine 21 mg, Route: TOP, Drug form: ERFILM, Daily, Dosing Weight 102.273, kg, PRN as needed for smoking cessation, Start date: 09/03/18 14:28:00 MOLDER, Duration: 30 day, Stop date: 10/03/18 14:27:00 MOLDER No Longer Active 09/03/2018 [facility] Dextrose 50% Syringe 50 mL, Route: IVP, Dosing Weight 102.273, kg, PRN, PRN Blood Glucose Results, Start date: 09/03/18 14:28:00 MOLDER, Duration: 30 day, Stop date: 10/03/18 14:27:00 MOLDER No Longer Active 09/03/2018 [facility] Melatonin 3 mg, Route: PO, Bedtime, Dosing Weight 102.273, kg, PRN Insomnia, Start date: 09/03/18 14:28:00 MOLDER, Duration: 30 day, Stop date: 10/03/18 14:27:00 MOLDER No Longer Active 09/03/2018 [facility] Acetaminophen 650 mg, Route: PO, Drug form: TAB, Q6H, Dosing Weight 102.273, kg, PRN For Temp > 100.4 F, Start date: 09/03/18 14:28:00 MOLDER, Duration: 30 day, Stop date: 10/03/18 14:27:00 MOLDER No Longer Active 09/03/2018 [facility] Diphenhydramine 25 mg, Route: PO, Q6H, Dosing Weight 102.273, kg, PRN as needed for allergy symptoms, Start date: 09/03/18 14:28:00 MOLDER, Duration: 30 day, Stop date: 10/03/18 14:27:00 MOLDER No Longer Active 09/03/2018 [facility] Trazodone 50 mg, Route: PO, Bedtime, Dosing Weight 102.273, kg, PRN Insomnia, Start date: 09/03/18 14:28:00 MOLDER, Duration: 30 day, Stop date: 10/03/18 14:27:00 MOLDER No Longer Active 09/03/2018 [facility] Ondansetron 4 mg, Route: IVP, Q6H, Dosing Weight 102.273, kg, PRN Nausea & Vomiting, Start date: 09/03/18 14:28:00 MOLDER, Duration: 30 day, Stop date: 10/03/18 14:27:00 MOLDER No Longer Active 09/03/2018 [facility] Bisacodyl 10 mg, Route: IL, Daily, Dosing Weight 102.273, kg, PRN Constipation, Start date: 09/03/18 14:28:00 MOLDER, Duration: 30 day, Stop date: 10/03/18 14:27:00 MOLDER No Longer Active 09/03/2018 [facility] POLYETHYLENE GLYCOL 3350 17 gm, Route: PO, Daily, Dosing Weight 102.273, kg, PRN Constipation, Start date: 09/03/18 14:28:00 MOLDER, Duration: 30 day, Stop date: 10/03/18 14:27:00 MOLDER No Longer Active 09/03/2018 [facility] Glucagon 1 mg, Route: IM, PRN, Dosing Weight 102.273, kg, PRN Blood Glucose Results, Start date: 09/03/18 14:28:00 MOLDER, Duration: 30 day, Stop date: 10/03/18 14:27:00 MOLDER No Longer Active 09/03/2018 [facility] Protonix 40 mg, 1 tab, Route: PO, Drug form: ECTAB, Before Dinner, Start date: 08/14/17 16:30:00 MOLDER, Duration: 30 day, Stop date: 09/12/17 16:30:00 CSTNotes: Tablet should not be chewed or crushed. (Same as: Protonix) Inactive 08/14/2017 [facility] heparin sodium, porcine 2500 UNT/ML Injectable Solution 5,000 unit, 1 mL, Route: SUB-Q, Drug form: INJ, Q8H, Dosing Weight 100, kg, Start date: 08/14/17 16:00:00 MOLDER, Duration: 30 day, Stop date: 09/13/17 8:00:00 CSTNotes: porcine heparin Inactive 08/14/2017 [facility] Levetiracetam 500 MG Oral Tablet [Keppra] 500 mg=1 tab, PO, Q12H, # 12 tab, 0 Refill(s) Active 08/14/2017 [facility] Thiamine 100 mg, 1 tab, Route: PO, Drug form: TAB, Daily, Dosing Weight 100, kg, Start date: 08/14/17 9:00:00 MOLDER, Duration: 5 day, Stop date: 08/18/17 9:00:00 CSTNotes: (Same As: Vitamin B1) Inactive 08/14/2017 [facility] multivitamin 1 tab, Route: PO, Drug Form: TAB, Dosing Weight 100, kg, Daily, Start date: 08/14/17 9:00:00 MOLDER, Duration: 5 day, Stop date: 08/18/17 9:00:00 CSTNotes: (Same as:Thera) WASTE: F/P - Black; E - Municipal Trash Bin Take with food. Inactive 08/14/2017 [facility] Folic Acid 1 mg, 1 tab, Route: PO, Drug form: TAB, Daily, Dosing Weight 100, kg, Start date: 08/14/17 9:00:00 MOLDER, Duration: 5 day, Stop date: 08/18/17 9:00:00 CSTNotes: (Same as: Folvite) Inactive 08/14/2017 [facility] torsemide 10 mg, 1 tab, Route: PO, Drug form: TAB, Daily, Dosing Weight 100, kg, Start date: 08/14/17 9:00:00 MOLDER, Duration: 30 day, Stop date: 09/12/17 9:00:00 CSTNotes: (Same As: Demadex) Inactive 08/14/2017 [facility] Levetiracetam 500 MG Oral Tablet [Keppra] 500 mg, 1 tab, Route: PO, Drug form: TAB, Q12H, Dosing Weight 100, kg, Start date: 08/14/17 9:00:00 MOLDER, Duration: 6 day, Stop date: 08/19/17 21:00:00 CSTNotes: (Same as:Keppra) Inactive 08/14/2017 [facility] Triiodothyronine 5 microgram, 1 tab, Route: PO, Drug form: TAB, Daily, Dosing Weight 100, kg, Start date: 08/14/17 9:00:00 MOLDER, Duration: 30 day, Stop date: 09/12/17 9:00:00 CSTNotes: (Same as: Cytomel) Inactive 08/14/2017 [facility] Omeprazole 20 mg, Route: PO, Drug form: ECTAB, Daily, Dosing Weight 100, kg, Start date: 08/14/17 9:00:00 MOLDER, Duration: 30 day, Stop date: 09/12/17 9:00:00 MOLDER No Longer Active 08/14/2017 [facility] Thyroxine 50 microgram, 1 tab, Route: PO, Drug form: TAB, Q630AM, Dosing Weight 100, kg, Start date: 08/14/17 6:30:00 MOLDER, Duration: 30 day, Stop date: 09/12/17 6:30:00 CSTNotes: Take 1 hour before or 2 hours after meal; Enteral feeds may interefere with the absorption of this medication.(Same as:Levothroid, Synthroid) Inactive 08/14/2017 [facility] gabapentin 600 MG Oral Tablet 600 mg, 2 cap, Route: PO, Drug form: CAP, QID, Dosing Weight 100, kg, Priority: NOW, Start date: 08/13/17 22:07:00 MOLDER, Duration: 30 day, Stop date: 09/12/17 21:00:00 CSTNotes: (Same as: Neurontin) No Longer Active 08/14/2017 [facility] Ranitidine 300 mg, 20 mL, Route: PO, Drug form: SYRP, Bedtime, Dosing Weight 100, kg, Start date: 08/13/17 21:00:00 MOLDER, Duration: 30 day, Stop date: 09/11/17 21:00:00 CSTNotes: (Same as:Zantac) Take before or with meals No Longer Active [facility] [place] metoprolol tartrate 25 mg, 1 tab, Route: PO, Drug form: TAB, Q12H, Dosing Weight 100, kg, Start date: 08/13/17 21:00:00 MOLDER, Duration: 30 day, Stop date: 09/12/17 9:00:00 CSTNotes: (Same as: Lopressor) No Longer Active 08/14/2017 [facility] [place] Regular Insulin, Human 100 UNT/ML Injectable Solution 3 unit, 0.03 mL, Route: SUB-Q, Drug form: SOLN, PRN, Dosing Weight 100, kg, PRN Abnormal Lab Result, Start date: 08/13/17 20:03:00 MOLDER, Duration: 30 day, Stop date: 09/12/17 20:02:00 CSTNotes: (Same as: Humulin R) Roll in palms of hands gently; Do not shake vigorously. "single patient use only" (Restricted to patients requiring a dose > 60 units) WASTE: F/P - Black; E - POPVOX Trash Bin Stable for 28 days at room temperature Expires in days from Date No Longer Active 08/14/2017 [facility] [place] Dextrose 50% Syringe 6.25 gm, 12.5 mL, Route: IVP, Drug Form: INJ, Dosing Weight 100, kg, PRN, PRN Abnormal Lab Result, Start date: 08/13/17 20:03:00 MOLDER, Duration: 30 day, Stop date: 09/12/17 20:02:00 MOLDER No Longer Active 08/14/2017 [facility] [place] Amiodarone 200 mg, 1 tab, Route: PO, Drug form: TAB, Daily, Dosing Weight 100, kg, Priority: NOW, Start date: 08/13/17 20:03:00 MOLDER, Stop date: 09/12/17 21:00:00 CSTNotes: (Same as: Cordarone) No Longer Active 08/14/2017 [facility] [place] Acetaminophen 325 MG / Hydrocodone Bitartrate 5 MG Oral Tablet [[place] 5/325] 1 tab, Route: PO, Drug Form: TAB, Dosing Weight 100, kg, Q6H, PRN Pain Score 1-3, Start date: 08/13/17 20:03:00 MOLDER, Duration: 30 day, Stop date: 09/12/17 20:02:00 CSTNotes: (Same as: [place] 325/5) Do not exceed 4gm/day of acetaminophen. No Longer Active 08/14/2017 [facility] [place] Labetalol 10 mg, 2 mL, Route: IVP, Drug form: INJ, Q15Min, Dosing Weight 100, kg, PRN Hypertension, Start date: 08/13/17 18:38:00 MOLDER, Duration: 30 day, Stop date: 09/12/17 18:37:00 MOLDER No Longer Active 08/14/2017 [facility] [place] Hydralazine 20 mg, 1 mL, Route: IVP, Drug form: INJ, Q4H, Dosing Weight 100, kg, PRN Hypertension, Start date: 08/13/17 18:38:00 MOLDER, Duration: 30 day, Stop date: 09/12/17 18:37:00 CSTNotes: (Same as: Apresoline) Push over 5 minutes No Longer Active 08/14/2017 [facility] [place] Dilaudid 0.5 mg, Route: IVP, ONCE, kg, Priority: STAT, Start date: 08/13/17 16:07:00 MOLDER, Stop date: 08/13/17 16:07:00 MOLDER Inactive 08/13/2017 [facility] [place] ranitidine 300 mg oral capsule 300 mg=1 cap, PO, Bedtime, 0 Refill(s) Active 08/13/2017 [facility] [place] levothyroxine 50 mcg (0.05 mg) oral tablet 50 microgram=1 tab, PO, Daily, 0 Refill(s) Active 08/13/2017 [facility] [place] torsemide 10 mg oral tablet 10 mg=1 tab, PO, Daily, 0 Refill(s) Active 08/13/2017 [facility] [place] AMIODarone 200 mg oral tablet 200 mg=1 tab, PO, Daily, # 90 tab, 3 Refill(s) Active 08/13/2017 [facility] [place] gabapentin 600 MG Oral Tablet 600 mg=1 tab, PO, QID, 0 Refill(s) Active 08/13/2017 [facility] [place] metoprolol tartrate 25 mg oral tablet 25 mg=1 tab, PO, BID, 0 Refill(s) Active 08/13/2017 [facility] [place] rivaroxaban 20 MG Oral Tablet [Xarelto] 20 mg=1 tab, PO, QPM, 0 Refill(s) No Longer Active 08/13/2017 [facility] [place] liothyronine 5 mcg oral tablet 5 microgram=1 tab, PO, Daily, 0 Refill(s) Active 08/13/2017 [facility] [place] omeprazole 20 mg oral enteric coated tablet 20 mg=1 tab, PO, Daily, 0 Refill(s) Active 08/13/2017 [facility] [place] Dilaudid 0.5 mg, 0.25 mL, Route: IVP, Drug form: INJ, ONCE, kg, Priority: STAT, Start date: 08/13/17 9:29:00 MOLDER, Stop date: 08/13/17 9:29:00 CSTNotes: Same as Dilaudid Inactive 08/13/2017 [facility] [place] Lidocaine Hydrochloride 10 MG/ML Injectable Solution 10 mg, 1 ml, Route: SUB-Q, Drug Form: INJ, kg, ONCE, Start date: 08/13/17 9:18:00 MOLDER, Stop date: 08/13/17 9:18:00 CSTNotes: (Same as: Xylocaine) Inactive 08/13/2017 [facility] [place] Saline Flush 0.9% 10 ml, Route: IVP, Drug Form: INJ, kg, Q12H, Start date: 08/13/17 9:00:00 MOLDER, Duration: 30 day, Stop date: 09/11/17 21:00:00 CSTNotes: Same as: BD Posiflush Sterile No Longer Active 08/13/2017 [facility] [place] sennosides, HALFWAY 8.6 mg, 1 tab, Route: PO, Drug Form: TAB, kg, Q12H, Start date: 08/13/17 9:00:00 MOLDER, Duration: 30 day, Stop date: 09/11/17 21:00:00 CSTNotes: (Same as: Senokot) No Longer Active 08/13/2017 [facility] [place] Docusate 100 mg, 1 cap, Route: PO, Drug form: CAP, Q12H, kg, Start date: 08/13/17 9:00:00 MOLDER, Duration: 30 day, Stop date: 09/11/17 21:00:00 CSTNotes: (Same as: Colace) (Do Not Crush) No Longer Active 08/13/2017 [facility] [place] Levetiracetam 500 mg, Route: IV, Q12H, kg, Start date: 08/13/17 9:00:00 MOLDER, Duration: 7 day, Stop date: 08/19/17 21:00:00 CSTNotes: Same as Keppra Mix with 100 mL NS, LR or D5W MEDICATION WASTE Product Size: 500 mg Product Wasted: ___ mg Inactive 08/13/2017 [facility] [place] Fentanyl 25 microgram, Route: IV, Drug form: INJ, ONCE, kg, PRN Pain Score 7-10, Start date: 08/13/17 8:00:00 MOLDER, Pediatric Dosing; For procedure; > 50 kg Inactive 08/13/2017 [facility] [place] Saline Flush 0.9% 10 ml, Route: IVP, Drug Form: INJ, kg, PRN, PRN Line Flush, Start date: 08/13/17 6:18:00 MOLDER, Duration: 30 day, Stop date: 09/12/17 6:17:00 CSTNotes: (Same as: BD Posiflush) No Longer Active 08/13/2017 [facility] [place] Ondansetron 4 mg, 2 mL, Route: IVP, Drug form: INJ, Q8H, kg, PRN Nausea & Vomiting, Start date: 08/13/17 6:18:00 MOLDER, Duration: 30 day, Stop date: 09/12/17 6:17:00 CSTNotes: (Same as: Zofran) MEDICATION WASTE Product Size: 4 mg Product Wasted: ___ mg No Longer Active 08/13/2017 [facility] [place] Bisacodyl 10 mg, 1 supp, Route: IL, Drug form: SUPP, Daily, kg, PRN Constipation, Start date: 08/13/17 6:18:00 MOLDER, Duration: 30 day, Stop date: 09/12/17 6:17:00 CSTNotes: (Same As: Dulcolax, [place]isco-Lax) No Longer Active 08/13/2017 [facility] [place] Acetaminophen 325 MG / Hydrocodone Bitartrate 10 MG Oral Tablet 1 tab, Route: PO, Drug Form: TAB, kg, Q4H, PRN Pain Score 4-6, Start date: 08/13/17 6:18:00 MOLDER, Duration: 30 day, Stop date: 09/12/17 6:17:00 CSTNotes: Do not exceed 4gm/day of acetaminophen. (Same as: [place] 325/10) Inactive 08/13/2017 [facility] [place] Acetaminophen 650 mg, 2 tab, Route: PO, Drug form: TAB, Q4H, kg, PRN Pain 1-3/Temp > 99.5 F, Start date: 08/13/17 6:18:00 MOLDER, Duration: 30 day, Stop date: 09/12/17 6:17:00 CSTNotes: Do not exceed 4 gm/day. (Same as: Tylenol) No Longer Active 08/13/2017 [facility] [place] Acetaminophen 325 MG / Hydrocodone Bitartrate 5 MG Oral Tablet 1 tab, Route: PO, Drug Form: TAB, kg, Q4H, PRN Pain Score 1-3, Start date: 08/13/17 6:18:00 MOLDER, Duration: 30 day, Stop date: 09/12/17 6:17:00 CSTNotes: (Same as: [place] 325/5) Do not exceed 4gm/day of acetaminophen. Inactive 08/13/2017 [facility] [place] Sodium Chloride 0.9% IV 1,000 mL 1,000 mL, Rate: 50 ml/hr, Infuse over: 20 hr, Route: IV, Total Volume: 1,000, Start date: 08/13/17 6:18:00 MOLDER, Duration: 30 day, Stop date: 09/12/17 6:17:00 MOLDER No Longer Active 08/13/2017 [facility] [place] Keppra 1,000 mg, Route: IV, ONCE, kg, Priority: NOW, Start date: 08/13/17 5:08:00 MOLDER, Stop date: 08/13/17 5:08:00 MOLDER Inactive 08/13/2017 [facility] [place] Saline Flush 0.9% 10 mL, Route: IVP, Drug Form: INJ, kg, PRN, PRN Line Flush, Start date: 08/13/17 5:07:00 MOLDER, Duration: 30 day, Stop date: 09/12/17 5:06:00 CSTNotes: Same as: BD Posiflush Sterile No Longer Active 08/13/2017 [facility] [place] Fentanyl 50 microgram, Route: IVP, Drug form: INJ, ONCE, Dosing Weight 90.909, kg, Start date: 02/16/17 15:02:00 CDT, Stop date: 02/16/17 15:02:00 CDT Inactive 02/16/2017 [facility] [place] Versed 0.5 mg, Route: IV, ONCE, Dosing Weight 90.909, kg, Start date: 02/08/17 10:30:00 CDT, Stop date: 02/08/17 10:30:00 CDT Inactive 02/08/2017 [facility] [place] Fentanyl 25 microgram, Route: IV, ONCE, Dosing Weight 90.909, kg, Start date: 02/08/17 10:30:00 CDT, Stop date: 02/08/17 10:30:00 CDT, Inactive 02/08/2017 [facility] [place] Versed 0.5 mg, Route: IV, ONCE, Dosing Weight 90.909, kg, Start date: 02/08/17 10:00:00 CDT, Stop date: 02/08/17 10:00:00 CDT Inactive 02/08/2017 [facility] [place] Fentanyl 25 microgram, Route: IV, ONCE, Dosing Weight 90.909, kg, Start date: 02/08/17 10:00:00 CDT, Stop date: 02/08/17 10:00:00 CDT, Inactive 02/08/2017 [facility] [place] Fentanyl 50 microgram, Route: IV, ONCE, Dosing Weight 90.909, kg, Start date: 02/08/17 9:20:00 CDT, Stop date: 02/08/17 9:20:00 CDT, Inactive 02/08/2017 [facility] [place] Versed 1 mg, Route: IV, ONCE, Dosing Weight 90.909, kg, Start date: 02/08/17 9:20:00 CDT, Stop date: 02/08/17 9:20:00 CDT Inactive 02/08/2017 [facility] [place] melatonin 3 mg oral tablet 3 mg=1 tab, PO, Bedtime, PRN Sleep, 0 Refill(s) Active 10/09/2016 [facility] [place] Ibuprofen 400 MG Oral Tablet 400 mg=1 tab, PO, Q4H, PRN Pain, X 7 day, # 42 tab, 0 Refill(s) Active 10/09/2016 [facility] [place] tramadol hydrochloride 50 MG Oral Tablet 50 mg=1 tab, PO, Q6H, PRN Pain, X 7 day, # 28 tab, 0 Refill(s) Active 10/09/2016 [facility] [place] Trazodone 50 mg, 1 tab, Route: PO, Drug form: TAB, ONCE, Dosing Weight 84.091, kg, Start date: 10/08/16 23:12:00 MOLDER, Stop date: 10/08/16 23:12:00 MOLDER, ..Notes: (Same As: Michelle) Inactive 10/09/2016 [facility] [place] remove patch 1 patch, Route: TOP, Drug form: ERFILM, Q72H, Start date: 10/08/16 23:00:00 MOLDER, Duration: 1 day, Stop date: 10/08/16 23:00:00 CSTNotes: Remove old patch before application of new patch. Inactive 10/09/2016 [facility] [place] Trazodone Hydrochloride 50 MG Oral Tablet 50 mg, 1 tab, Route: PO, Drug form: TAB, ONCE, Dosing Weight 84.091, kg, PRN Anxiety, Start date: 10/08/16 18:14:00 CSTNotes: (Same As: Desyrel) Inactive 10/09/2016 [facility] [place] Melatonin 3 mg, 1 tab, Route: PO, Drug form: TAB, Bedtime, Dosing Weight 84.091, kg, PRN Sleep, Start date: 10/07/16 23:46:00 MOLDER, Duration: 30 day, Stop date: 11/06/16 23:45:00 CDTNotes: (Same as: Melatonin) No Longer Active 10/08/2016 [facility] [place] Xarelto 20 mg, 1 tab, Route: PO, Drug form: TAB, QPM, Dosing Weight 84.091, kg, Start date: 10/07/16 17:00:00 MOLDER, Duration: 30 day, Stop date: 11/05/16 17:00:00 CDTNotes: (Same as: Xarelto) Administer with food No Longer Active 10/07/2016 [facility] [place] pantoprazole 40 mg, Route: PO, Drug form: ECTAB, Before Breakfast, Dosing Weight 84.091, kg, Start date: 10/07/16 7:30:00 MOLDER, Duration: 30 day, Stop date: 11/05/16 7:30:00 CDT No Longer Active 10/07/2016 [facility] [place] Protonix 40 mg, 1 tab, Route: PO, Drug form: ECTAB, Daily, Start date: 10/06/16 11:30:00 MOLDER, Duration: 30 day, Stop date: 11/05/16 7:30:00 CDTNotes: Tablet should not be chewed or crushed. (Same as: Protonix) No Longer Active 10/06/2016 [facility] [place] Thyroxine 75 microgram, 1 tab, Route: PO, Drug form: TAB, Daily, Dosing Weight 84.091, kg, Start date: 10/06/16 11:30:00 MOLDER, Duration: 30 day, Stop date: 11/05/16 6:30:00 CDTNotes: Take 1 hour before or 2 hours after meal; Enteral feeds may interefere with the absorption of this medication. (Same as:Synthroid, Levothroid) No Longer Active 10/06/2016 [facility] [place] Sertraline 50 mg, 1 tab, Route: PO, Drug form: TAB, Daily, Dosing Weight 84.091, kg, Start date: 10/06/16 9:00:00 MOLDER, Duration: 30 day, Stop date: 11/04/16 9:00:00 CDTNotes: (Same as: Zoloft) No Longer Active 10/06/2016 [facility] [place] Omeprazole 20 mg, Route: PO, Drug form: DRC, Daily, Dosing Weight 84.091, kg, Start date: 10/06/16 9:00:00 MOLDER, Duration: 30 day, Stop date: 11/04/16 9:00:00 CDT Inactive 10/06/2016 [facility] [place] metoprolol tartrate 25 mg, 1 tab, Route: PO, Drug form: TAB, Q12H, Dosing Weight 84.091, kg, Start date: 10/06/16 9:00:00 MOLDER, Duration: 30 day, Stop date: 11/04/16 21:00:00 CDTNotes: (Same as: Lopressor) No Longer Active 10/06/2016 [facility] [place] Amiodarone 200 mg, 1 tab, Route: PO, Drug form: TAB, Daily, Dosing Weight 84.091, kg, Start date: 10/06/16 9:00:00 MOLDER, Stop date: 11/04/16 9:00:00 CDTNotes: (Same as: Cordarone) No Longer Active 10/06/2016 [facility] [place] Lovenox 40 mg, 0.4 mL, Route: SUB-Q, Drug form: INJ, [id number], Dosing Weight 84.091, kg, Start date: 10/06/16 9:00:00 MOLDER, Duration: 30 day, Stop date: 11/04/16 9:00:00 CDTNotes: (Same as: Lovenox) Inactive 10/06/2016 [facility] [place] heparin sodium, porcine 2500 UNT/ML Injectable Solution 5,000 unit, 1 mL, Route: SUB-Q, Drug form: INJ, Q8H, Dosing Weight 84.091, kg, Start date: 10/06/16 8:00:00 MOLDER, Duration: 30 day, Stop date: 11/05/16 0:00:00 CDTNotes: porcine heparin Inactive 10/06/2016 [facility] [place] Plasma-Lyte A PH-7.4 1000 ml INJ 1,000 mL 1,000 mL, Rate: 100 ml/hr, Infuse over: 10 hr, Route: IV, Dosing Weight 84.091 kg, Total Volume: 1,000, Start date: 10/06/16 7:25:00 MOLDER, Duration: 30 day, Stop date: 11/05/16 7:24:00 CDTNotes: WASTE: F/P - Sink; E - Municipal Trash Bin No Longer Active 10/06/2016 [facility] [place] Isolyte S PH-7.4 (Bolus) IV 500 mL, 0 ml/hr, Route: IV, Drug Form: SOLN, Dosing Weight 84.091, kg, ONCE, Start date: 10/06/16 5:51:00 MOLDER, Stop date: 10/06/16 5:51:00 CSTNotes: (Same as: Isolyte S PH7.4) Inactive 10/06/2016 [facility] [place] Insulin, Aspart, Human 1 unit, 0.01 mL, Route: SUB-Q, Drug form: SOLN, TID-Before Meals, Dosing Weight 84.091, kg, PRN Blood Glucose Results, Start date: 10/06/16 5:50:00 MOLDER, Duration: 30 day, Stop date: 11/05/16 5:49:00 CDTNotes: Roll in palms of hands gently; Do not shake vigorously. (Same as: NovoLOG) "single patient use only" WASTE: F/P - Black; E - Municipal Trash Bin Stable for 28 days at room temperature. Expires in days from Date No Longer Active 10/06/2016 [facility] [place] Dextrose 50% Syringe 25 gm, 50 mL, Route: IVP, Drug Form: INJ, Dosing Weight 84.091, kg, PRN, PRN Blood Glucose Results, Start date: 10/06/16 5:50:00 MOLDER, Duration: 30 day, Stop date: 11/05/16 6:49:00 CDT No Longer Active 10/06/2016 [facility] [place] Glucagon 1 mg, Route: IM, Drug form: PDR/INJ, PRN, Dosing Weight 84.091, kg, PRN Blood Glucose Results, Start date: 10/06/16 5:50:00 MOLDER, Duration: 30 day, Stop date: 11/05/16 6:49:00 CDT No Longer Active 10/06/2016 [facility] [place] Flomax 0.4 mg, 1 cap, Route: PO, Drug form: CAP, After Breakfast, Dosing Weight 84.091, kg, Priority: NOW, Start date: 10/05/16 22:54:00 MOLDER, Duration: 30 day, Stop date: 11/04/16 8:30:00 CDTNotes: (Same As: Flomax) "Do Not Crush" No Longer Active 10/06/2016 [facility] [place] Docusate Sodium 100 MG Oral Capsule 100 mg, 1 cap, Route: PO, Drug form: CAP, BID, Dosing Weight 84.091, kg, Start date: 10/05/16 17:00:00 MOLDER, Duration: 30 day, Stop date: 11/04/16 9:00:00 CDTNotes: (Same as: Colace) (Do Not Crush) No Longer Active 10/05/2016 [facility] [place] Labetalol 10 mg, 2 mL, Route: IVP, Drug form: INJ, Q5Min, Dosing Weight 84.091, kg, PRN Elevated BP, Start date: 10/05/16 16:07:00 MOLDER, Duration: 5 doses or times, Stop date: Limited # of times Inactive 10/05/2016 [facility] [place] Flumazenil 0.2 mg, 2 mL, Route: IVP, Drug form: INJ, PRN, Dosing Weight 84.091, kg, PRN Benzodiazepine Reversal, Initial dose, Start date: 10/05/16 16:07:00 MOLDER, Duration: 1 day, Stop date: 10/06/16 16:06:00 CS TNotes: (Same as: Romazicon) Inactive 10/05/2016 [facility] [place] Naloxone 0.4 mg, 1 mL, Route: IVP, Drug form: INJ, Q2MIN, Dosing Weight 84.091, kg, PRN Narcotic Reversal, Start date: 10/05/16 16:07:00 MOLDER, Duration: 8 doses or times, Stop date: Limited # of timesNotes: Same as Narcan Inactive 10/05/2016 [facility] [place] Ondansetron 4 mg, 2 mL, Route: IVP, Drug form: INJ, ONCE, Dosing Weight 84.091, kg, PRN Nausea & Vomiting, Start date: 10/05/16 16:07:00 CSTNotes: (Same as: Zofran) MEDICATION WASTE Product Size: 4 mg Product Wasted: ___ mg Inactive 10/05/2016 [facility] [place] Hydralazine 5 mg, 0.25 mL, Route: IVP, Drug form: INJ, Q20Min, Dosing Weight 84.091, kg, PRN Elevated BP, Start date: 10/05/16 16:07:00 MOLDER, Duration: 2 doses or times, Stop date: Limited # of timesNotes: (Same as: Apresoline) Push over 5 minutes Inactive 10/05/2016 [facility] [place] Oxycodone Hydrochloride 5 MG Oral Tablet 10 mg, 2 tab, Route: PO, Drug form: TAB, Q4H, Dosing Weight 84.091, kg, PRN Pain Score 7-10, Start date: 10/05/16 16:00:00 MOLDER, Duration: 30 day, Stop date: 11/04/16 15:59:00 CDTNotes: (Same as: Roxicodone) No Longer Active 10/05/2016 [facility] [place] Acetaminophen 1,000 mg, 2 tab, Route: PO, Drug form: TAB, Q6Hnow, Dosing Weight 84.091, kg, Start date: 10/05/16 16:00:00 MOLDER, Duration: 30 day, Stop date: 11/04/16 10:00:00 CDTNotes: Max acetaminophen 4000 mg/day (4 gm/day). (Same as: Tylenol Extra Strength) No Longer Active 10/05/2016 [facility] [place] gabapentin 300 mg, 1 cap, Route: PO, Drug form: CAP, Q8Hnow, Dosing Weight 84.091, kg, Start date: 10/05/16 16:00:00 MOLDER, Duration: 30 day, Stop date: 11/04/16 8:00:00 CDTNotes: (Same as: Neurontin) No Longer Active 10/05/2016 [facility] [place] Tramadol 100 mg, 2 tab, Route: PO, Drug form: TAB, Q6Hnow, Dosing Weight 84.091, kg, Start date: 10/05/16 16:00:00 MOLDER, Duration: 30 day, Stop date: 11/04/16 10:00:00 CDTNotes: Not to exceed 400mg/day. (Same As: Ultram) No Longer Active 10/05/2016 [facility] [place] celecoxib 200 mg, 2 cap, Route: PO, Drug form: CAP, [id number], Dosing Weight 84.091, kg, Start date: 10/05/16 16:00:00 MOLDER, Duration: 30 day, Stop date: 11/04/16 4:00:00 CDTNotes: NSAID. Please check indication. Not for seizure. (Same As: CeleBREX ) No Longer Active 10/05/2016 [facility] [place] ropivacaine Route: NERVE BLOCK, Continuous Rate: 10, ml/hr, Dosing Site: TAP Side: Left, INSPECTOR CHIEF dose 0 mL, 1 Hour limit: 10 mL, 200, mL, Start date: 10/05/16 15:58:00 MOLDER, Drug Form: INJ, Total volume: 200, mL, kg, Stop date: 11/04/16 15:57:00 CDTNotes: Same as: Naropin No Longer Active 10/05/2016 [facility] [place] Enoxaparin 40 mg, Route: SUB-Q, Drug form: INJ, [id number], Dosing Weight 84.091, kg, Start date: 10/05/16 15:00:00 MOLDER, Duration: 30 day, Stop date: 11/03/16 15:00:00 CDT Inactive 10/05/2016 [facility] [place] Ancef 1 gm, Route: IVPB, ONCE, Dosing Weight 84.091, kg, Start date: 10/05/16 11:50:00 MOLDER, Stop date: 10/05/16 11:50:00 MOLDER Inactive 10/05/2016 [facility] [place] Ofirmev 1,000 mg, 100 mL, Route: IV, Drug form: INJ, PRE OP, Start date: 10/05/16 6:00:00 MOLDER, Duration: 1 doses or times, Stop date: 10/05/16 23:00:00 CSTNotes: Infuse over 15 minutes Do not exceed 4gm/day of acetaminophen MEDICATION WASTE Product Size: 1000 mg Product Wasted: ___ mg No Longer Active 10/05/2016 [facility] [place] scopolamine 1 patch, Route: TOP, Drug form: ERFILM, PRE OP, Start date: 10/05/16 6:00:00 MOLDER, Duration: 1 doses or times, Stop date: 10/05/16 23:00:00 CSTNotes: Change patch every 72 hours (Same as: Transderm- Scop) Inactive 10/05/2016 [facility] [place] ceFAZolin 2 gm, 100 mL, Route: IVPB, Drug form: INJ, PRE OP, Start date: 10/05/16 6:00:00 MOLDER, Duration: 1 doses or times, Stop date: 10/05/16 23:00:00 CSTNotes: Same as: Ancef Inactive 10/05/2016 [facility] [place] Ondansetron 4 MG Disintegrating Tablet [Zofran] 4 mg=1 tab, PO, BID, PRN Nausea and Vomiting, Dissolve tab under tongue, X 5 day, # 10 tab, 0 Refill(s) Active 09/12/2016 [facility] [place] tramadol hydrochloride 50 MG Oral Tablet 50 mg=1 tab, PO, Q4H, X 3 day, # 18 tab, 0 Refill(s) Active 09/12/2016 [facility] [place] Acetaminophen 300 MG / Codeine Phosphate 30 MG Oral Tablet [Tylenol with Codeine #3] 1 - 2 tab, PO, Q6H, PRN Pain, X 4 day, # 32 tab, 0 Refill(s) Active 09/12/2016 [facility] [place] rivaroxaban 20 MG Oral Tablet [Xarelto] 20 mg=1 tab, PO, QPM, # 30 tab, 3 Refill(s) Active 09/12/2016 [facility] [place] Habitrol 14 mg, 1 patch, Route: TOP, Drug form: ERFILM, Daily, Start date: 09/12/16 9:00:00 MOLDER, Duration: 30 day, Stop date: 10/11/16 9:00:00 CSTNotes: (Same as: Habitrol) "Remove old patch before application of new patch" WASTE: F/P - P Waste Black; E - P Waste Black Inactive 09/12/2016 [facility] [place] tramadol hydrochloride 50 MG Oral Tablet 50 mg=1 tab, PO, Q4H, X 3 day, # 18 tab, 0 Refill(s) Inactive 09/12/2016 [facility] [place] Acetaminophen 300 MG / Codeine Phosphate 30 MG Oral Tablet [Tylenol with Codeine #3] 1 - 2 tab, PO, Q6H, PRN Pain, X 4 day, # 32 tab, 0 Refill(s) Inactive 09/12/2016 [facility] [place] Ondansetron 4 MG Disintegrating Tablet [Zofran] 4 mg=1 tab, PO, BID, PRN Nausea and Vomiting, Dissolve tab under tongue, X 5 day, # 10 tab, 0 Refill(s) Inactive 09/12/2016 [facility] [place] Amlodipine 2.5 mg, 1 tab, Route: PO, Drug form: TAB, Daily, Dosing Weight 84.091, kg, Start date: 09/11/16 9:00:00 MOLDER, Duration: 30 day, Stop date: 10/10/16 9:00:00 CSTNotes: (Same as: Norvasc) No Longer Active 09/11/2016 [facility] [place] Magnesium Sulfate 2 gm, 50 mL, Route: IVPB, Drug form: INJ, ONCE, Dosing Weight 84.091, kg, Start date: 09/11/16 1:15:00 MOLDER, Duration: 2 hr, Stop date: 09/11/16 1:15:00 CSTNotes: WASTE: F/P - Sink; E - Municipal Trash Bin Inactive 09/11/2016 [facility] [place] Plasma-Lyte A PH-7.4 1000 ml INJ 1,000 mL 1,000 mL, Rate: 75 ml/hr, Infuse over: 13.3 hr, Route: IV, Dosing Weight 84.091 kg, Total Volume: 1,000, Start date: 09/10/16 9:49:00 MOLDER, Duration: 30 day, Stop date: 10/10/16 9:48:00 CSTNotes: WASTE: F/P - Sink; E - [employer] Trash Bin No Longer Active 09/10/2016 [facility] Thyroxine 75 microgram, 1 tab, Route: PO, Drug form: TAB, Daily, Dosing Weight 84.091, kg, Start date: 09/10/16 7:00:00 MOLDER, Duration: 30 day, Stop date: 10/09/16 7:00:00 CSTNotes: Take 1 hour before or 2 hours after meal; Enteral feeds may interefere with the absorption of this medication. (Same as:Synthroid, Levothroid) No Longer Active 09/10/2016 [facility] metoprolol tartrate 25 mg, 1 tab, Route: PO, Drug form: TAB, Q12H, Dosing Weight 84.091, kg, Start date: 09/09/16 21:00:00 MOLDER, Duration: 30 day, Stop date: 10/09/16 9:00:00 CSTNotes: (Same as: Lopressor) No Longer Active 09/10/2016 [facility] Sertraline 50 mg, 1 tab, Route: PO, Drug form: TAB, Daily, Dosing Weight 84.091, kg, Start date: 09/09/16 15:30:00 MOLDER, Duration: 30 day, Stop date: 10/09/16 9:00:00 CSTNotes: (Same as: Zoloft) No Longer Active 09/09/2016 [facility] Diltiazem 120 mg, 1 cap, Route: PO, Drug form: ERCAP, Daily, Dosing Weight 84.091, kg, Start date: 09/09/16 15:30:00 MOLDER, Duration: 30 day, Stop date: 10/09/16 9:00:00 CSTNotes: (Same as: Cardizem CD) Do Not Crush Before meals. No Longer Active 09/09/2016 [facility] Amiodarone 200 mg, 1 tab, Route: PO, Drug form: TAB, Daily, Dosing Weight 84.091, kg, Start date: 09/09/16 15:00:00 MOLDER, Duration: 30 day, Stop date: 10/09/16 9:00:00 CSTNotes: (Same as: Cordarone) No Longer Active 09/09/2016 [facility] remove patch 1 patch, Route: TOP, Drug form: ERFILM, Daily, Start date: 09/09/16 9:00:00 MOLDER, Duration: 30 day, Stop date: 10/08/16 9:00:00 CSTNotes: Remove old patch before application of new patch. WASTE: F/P - P Waste Black; E - P Waste Black No Longer Active 09/09/2016 [facility] Hydralazine 10 mg, 0.5 mL, Route: IV, Drug form: INJ, Q6H, Dosing Weight 84.091, kg, PRN Hypertension, SBP>160mmHg, Start date: 09/09/16 0:08:00 MOLDER, Duration: 30 day, Stop date: 10/09/16 0:07:00 CSTNotes: (Same as: Apresoline) Push over 5 minutes No Longer Active 09/09/2016 [facility] Nicotine 21 mg, 1 patch, Route: TOP, Drug form: ERFILM, Daily, Dosing Weight 84.091, kg, Start date: 09/08/16 15:50:00 MOLDER, Duration: 30 day, Stop date: 10/08/16 9:00:00 CSTNotes: (Same as: Habitrol) "Remove old patch before application of new patch" WASTE: F/P - P Waste Black; E - P Waste Black No Longer Active 09/08/2016 [facility] phenol 1 spray, Route: TOP, TID, Drug form: SPRY, PRN Sore Throat, Start date: 09/08/16 7:44:00 MOLDER, Duration: 30 day, Stop date: 10/08/16 7:43:00 CSTNotes: Chloraseptic [place] (Same as: Chloraseptic, Sore Throat [place]) WASTE: F/P - Black; E - Municipal Trash Bin No Longer Active 09/08/2016 [facility] Lovenox 40 mg, 0.4 mL, Route: SUB-Q, Drug form: INJ, Q24H, Dosing Weight 84.091, kg, Start date: 09/07/16 18:00:00 MOLDER, Duration: 30 day, Stop date: 10/06/16 18:00:00 CSTNotes: (Same as: Lovenox) No Longer Active 09/08/2016 [facility] Protonix 40 mg, Route: IVP, Drug form: INJ, Daily, Dosing Weight 84.091, kg, Patient is NPO, Start date: 09/07/16 17:12:00 MOLDER, Duration: 30 day, Stop date: 10/07/16 9:00:00 CSTNotes: For IV push reconstitute with 10 ml 0.9% sodium chloride and push over 2 minutes. (Same as: Protonix) No Longer Active 09/07/2016 [facility] Sodium Chloride 0.154 MEQ/ML Injectable Solution 500 mL, 500 ml/hr, Infuse Over: 1 hr, Route: IV, 500, Drug form: INJ, ONCE, Priority: STAT, Dosing Weight 84.091 kg, Start date: 09/07/16 16:00:00 MOLDER, Duration: 1 doses or times, Stop date: 09/07/16 16:00:00 MOLDER Inactive 09/07/2016 [facility] diltiazem 120 mg/24 hours oral capsule, extended release 120 mg=1 cap, PO, Daily, # 90 cap, 0 Refill(s) Active 09/07/2016 [facility] Furosemide 40 MG Oral Tablet 40 mg=1 tab, PO, Daily Active 09/07/2016 [facility] metoprolol tartrate 25 mg oral tablet 25 mg=1 tab, PO, BID, # 60 tab, 0 Refill(s) Active 09/07/2016 [facility] sertraline 50 mg oral tablet 50 mg=1 tab, PO, Daily, # 30 tab, 1 Refill(s) Active 09/07/2016 [facility] levothyroxine 75 mcg (0.075 mg) oral tablet 75 microgram=1 tab, PO, Daily, # 30 tab, 0 Refill(s) Active 09/07/2016 [facility] multivitamin 1 tab, PO, Daily, 0 Refill(s) Active 09/07/2016 [facility] liothyronine 50 mcg oral tablet 50 microgram=1 tab, PO, Daily, # 30 tab, 0 Refill(s) Active 09/07/2016 [facility] Testosterone 0 Refill(s) Active 09/07/2016 [facility] omeprazole 20 mg oral delayed release capsule 20 mg=1 cap, PO, Daily, # 30 cap, 1 Refill(s) Active 09/07/2016 [facility] rivaroxaban 20 MG Oral Tablet [Xarelto] 20 mg=1 tab, PO, QPM, # 30 tab, 3 Refill(s) No Longer Active 09/07/2016 [facility] AMIODarone 200 mg oral tablet 200 mg=1 tab, PO, Daily, # 90 tab, 3 Refill(s) Active 09/07/2016 [facility] Dilaudid 0.2 mg, 0.1 mL, Route: IVP, Drug form: INJ, Q3H, Dosing Weight 138.636, kg, PRN Pain Score 7-10, Start date: 09/07/16 9:16:00 MOLDER, Duration: 30 day, Stop date: 10/07/16 9:15:00 CSTNotes: Same as Dilaudid No Longer Active 09/07/2016 [facility] Ondansetron 4 mg, 2 mL, Route: IVP, Drug form: INJ, Q12H, Dosing Weight 138.636, kg, PRN Nausea & Vomiting, Start date: 09/07/16 9:15:00 MOLDER, Duration: 30 day, Stop date: 10/07/16 9:14:00 CSTNotes: (Same as: Zofran) MEDICATION WASTE Product Size: 4 mg Product Wasted: ___ mg No Longer Active 09/07/2016 [facility] Promethazine 12.5 mg, 0.5 mL, Route: IM, Drug form: INJ, Q4H, Dosing Weight 138.636, kg, PRN Nausea & Vomiting, Start date: 09/07/16 9:15:00 MOLDER, Duration: 30 day, Stop date: 10/07/16 9:14:00 CSTNotes: Do not give IV push. (Same as: Phenergan) No Longer Active 09/07/2016 [facility] Calcium Chloride 0.0014 MEQ/ML / Potassium Chloride 0.004 MEQ/ML / Sodium Chloride 0.103 MEQ/ML / Sodium Lactate 0.028 MEQ/ML Injectable Solution 1,000 mL, Rate: 100 ml/hr, Infuse over: 10 hr, Route: IV, Dosing Weight 138.636 kg, Total Volume: 1,000, Start date: 09/07/16 9:15:00 MOLDER, Stop date: 10/07/16 9:14:00 MOLDER No Longer Active 09/07/2016 [facility] Allergies, Adverse Reactions, Alerts Substance Category Reaction Severity Reaction type Status Date Reported Comments Source Bactrim Assertion Drug allergy Active [facility] Immunizations Immunization Date Given Site Status Last Updated Comments Source Results Order Name Results Value Reference Range Date Interpretation Comments Source CHEM PANEL Phosphorus 3.7 mg/dL 2.5 - 4.5 09/06/2018 [facility] CHEM PANEL Globulin 4.5 g/dL 2.7 - 4.2 09/06/2018 [facility] CHEM PANEL A/G Ratio 0.7 0.7 - 1.6 09/06/2018 [facility] CHEM PANEL B/C Ratio 21 6 - 25 09/06/2018 [facility] CHEM PANEL AGAP 13.4 meq/L 10.0 - 20.0 09/06/2018 [facility] CHEM PANEL eGFR 54 mL/min/1.73m2 09/06/2018 Result Comment: The eGFR is calculated using the CKD-EPI formula. In most young, healthy individuals the eGFR will be >90 mL/min/1.73m2. The eGFR declines with age. An eGFR of 60-89 may be normal in some populations, particularly the elderly, for whom the CKD-EPI formula has not been extensively validated. Use of the eGFR is not recommended in the following populations: Individuals with unstable creatinine concentrations, including patients and those with serious co-morbid conditions. Patients with extremes in muscle mass or diet. The data above are obtained from the National Kidney Disease Education Program (NKDEP) which additionally recommends that when the eGFR is used in patients with extremes of body mass index for purposes of drug dosing, the eGFR should be multiplied by the estimated BMI. [facility] CHEM PANEL Creatinine Lvl 1.31 mg/dL 0.50 - 1.40 09/06/2018 [facility] CHEM PANEL Albumin Lvl 3.2 g/dL 3.5 - 5.0 09/06/2018 [facility] CHEM PANEL Total Protein 7.7 g/dL 6.4 - 8.4 09/06/2018 [facility] CHEM PANEL Chloride Lvl 109 meq/L 95 - 109 09/06/2018 [facility] CHEM PANEL Sodium Lvl 143 meq/L 135 - 145 09/06/2018 [facility] CHEM PANEL Potassium Lvl 4.4 meq/L 3.5 - 5.1 09/06/2018 [facility] CHEM PANEL ALT 14 unit/L 0 - 65 09/06/2018 [facility] CHEM PANEL AST 15 unit/L 0 - 37 09/06/2018 [facility] CHEM PANEL CO2 25 meq/L 24 - 32 09/06/2018 [facility] CHEM PANEL Calcium Lvl 8.6 mg/dL 8.5 - 10.5 09/06/2018 [facility] CHEM PANEL Bili Total 0.3 mg/dL 0.2 - 1.3 09/06/2018 [facility] CHEM PANEL Alk Phos 77 unit/L 39 - 136 09/06/2018 [facility] CHEM PANEL BUN 28 mg/dL 7 - 22 09/06/2018 [facility] CHEM PANEL Glucose Lvl 119 mg/dL 70 - 99 09/06/2018 [facility] CHEM PANEL Magnesium Lvl 2.4 mg/dL 1.8 - 2.4 09/06/2018 [facility] HEMATOLOGY WBC 10.7 K/CMM 3.7 - 10.4 09/06/2018 [facility] RBC 4.25 M/CMM 4.70 - 6.10 09/06/2018 [facility] MCH 25.4 pg 27.0 - 31.0 09/06/2018 [facility] MCHC 32.7 g/dL 32.0 - 36.0 09/06/2018 [facility] Hgb 10.8 g/dL 14.0 - 18.0 09/06/2018 [facility] Hct 33.0 % 42.0 - 54.0 09/06/2018 [facility] MCV 77.7 fL 80.0 - 94.0 09/06/2018 [facility] Platelet 286 K/CMM 133 - 450 09/06/2018 [facility] MPV 7.6 fL 7.4 - 10.4 09/06/2018 [facility] RDW 17.4 % 11.5 - 14.5 09/06/2018 [facility] Microcyte 1+ *ABN* (09/06/18 5:15 AM) None Seen 09/06/2018 [facility] Eosinophils # 0.3 K/CMM 0.0 - 0.5 09/06/2018 [facility] Basophils # 0.1 K/CMM 0.0 - 0.2 09/06/2018 [facility] Lymphocytes # 1.7 K/CMM 1.0 - 5.5 09/06/2018 [facility] Neutrophils # 7.8 K/CMM 1.5 - 8.1 09/06/2018 [facility] Monocytes # 0.7 K/CMM 0.0 - 0.8 09/06/2018 [facility] HEMATOLOGY Eosinophils 3.3 % 0.0 - 4.0 09/06/2018 [facility] HEMATOLOGY Monocytes 6.6 % 2.0 - 12.0 09/06/2018 [facility] HEMATOLOGY Basophils 1.0 % 0.0 - 1.0 09/06/2018 [facility] HEMATOLOGY Segs 73.1 % 45.0 - 75.0 09/06/2018 [facility] HEMATOLOGY Lymphocytes 16.0 % 20.0 - 40.0 09/06/2018 [facility] Chest 1view DX Chest 1view DX Patient Name: SIMON ORDAZ : 1945; Age: 73 years Male MR: [id number] Study: Chest 1view DX Order Time: 09/05/2018 13:41 MOLDER CLINICAL INDICATION: - STAT portable Chest X-ray post successful insertion. Indication: Correct Line Placement. COMPARISON: Chest radiograph on 08/13/2017, CT on 09/05/2018 FINDINGS: Lines: Right PICC line tip projects over the SVC. Lungs: Vague lucency under the right hemidiaphragm. The lungs are clear. Mediastinum: The cardiac silhouette is within normal limits of size. Midline trachea. Bones and soft tissues: No acute abnormalities. IMPRESSION: Satisfactory position of the right PICC line. Vague lucency under the right hemidiaphragm likely related to artifact given the lack of pneumoperitoneum seen on the earlier CT on 09/05/2018 at 0552. SL: [id number] 09/05/2018 - - Read by: Liberty Navarrete MD Dictated Date/time: 09/05/18 13:59 Electronically Signed by: Liberty Navarrete MD 09/05/18 14:01 FINAL REPORT [facility] CHEM PANEL Phosphorus 3.5 mg/dL 2.5 - 4.5 09/05/2018 [facility] CHEM PANEL Magnesium Lvl 2.5 mg/dL 1.8 - 2.4 09/05/2018 [facility] CHEM PANEL eGFR 56 mL/min/1.73m2 09/05/2018 Result Comment: The eGFR is calculated using the CKD-EPI formula. In most young, healthy individuals the eGFR will be >90 mL/min/1.73m2. The eGFR declines with age. An eGFR of 60-89 may be normal in some populations, particularly the elderly, for whom the CKD-EPI formula has not been extensively validated. Use of the eGFR is not recommended in the following populations: Individuals with unstable creatinine concentrations, including patients and those with serious co-morbid conditions. Patients with extremes in muscle mass or diet. The data above are obtained from the National Kidney Disease Education Program (NKDEP) which additionally recommends that when the eGFR is used in patients with extremes of body mass index for purposes of drug dosing, the eGFR should be multiplied by the estimated BMI. [facility] CHEM PANEL A/G Ratio 0.8 0.7 - 1.6 09/05/2018 [facility] CHEM PANEL Bili Total 0.4 mg/dL 0.2 - 1.3 09/05/2018 [facility] CHEM PANEL AGAP 8.2 meq/L 10.0 - 20.0 09/05/2018 [facility] CHEM PANEL Globulin 4.2 g/dL 2.7 - 4.2 09/05/2018 [facility] CHEM PANEL B/C Ratio 22 6 - 25 09/05/2018 [facility] CHEM PANEL ALT 16 unit/L 0 - 65 09/05/2018 [facility] CHEM PANEL Albumin Lvl 3.2 g/dL 3.5 - 5.0 09/05/2018 [facility] CHEM PANEL Alk Phos 74 unit/L 39 - 136 09/05/2018 [facility] CHEM PANEL AST 16 unit/L 0 - 37 09/05/2018 [facility] CHEM PANEL Chloride Lvl 105 meq/L 95 - 109 09/05/2018 [facility] CHEM PANEL CO2 27 meq/L 24 - 32 09/05/2018 [facility] CHEM PANEL Calcium Lvl 8.3 mg/dL 8.5 - 10.5 09/05/2018 [facility] CHEM PANEL Total Protein 7.4 g/dL 6.4 - 8.4 09/05/2018 [facility] CHEM PANEL Glucose Lvl 102 mg/dL 70 - 99 09/05/2018 [facility] CHEM PANEL Potassium Lvl 4.2 meq/L 3.5 - 5.1 09/05/2018 [facility] CHEM PANEL Creatinine Lvl 1.26 mg/dL 0.50 - 1.40 09/05/2018 [facility] CHEM PANEL Sodium Lvl 136 meq/L 135 - 145 09/05/2018 [facility] CHEM PANEL BUN 28 mg/dL 7 - 22 09/05/2018 [facility] HEMATOLOGY MCHC 32.3 g/dL 32.0 - 36.0 09/05/2018 [facility] HEMATOLOGY RDW 16.9 % 11.5 - 14.5 09/05/2018 [facility] HEMATOLOGY MCH 25.1 pg 27.0 - 31.0 09/05/2018 [facility] HEMATOLOGY Platelet 253 K/CMM 133 - 450 09/05/2018 [facility] HEMATOLOGY MPV 7.6 fL 7.4 - 10.4 09/05/2018 [facility] HEMATOLOGY MCV 77.5 fL 80.0 - 94.0 09/05/2018 [facility] HEMATOLOGY RBC 4.08 M/CMM 4.70 - 6.10 09/05/2018 [facility] HEMATOLOGY Hgb 10.2 g/dL 14.0 - 18.0 09/05/2018 [facility] HEMATOLOGY WBC 9.6 K/CMM 3.7 - 10.4 09/05/2018 [facility] HEMATOLOGY Hct 31.6 % 42.0 - 54.0 09/05/2018 [facility] Microcyte 1+ *ABN* (09/05/18 6:28 AM) None Seen 09/05/2018 [facility] HEMATOLOGY Basophils # 0.1 K/CMM 0.0 - 0.2 09/05/2018 [facility] HEMATOLOGY Basophils 0.7 % 0.0 - 1.0 09/05/2018 [facility] HEMATOLOGY Neutrophils # 6.3 K/CMM 1.5 - 8.1 09/05/2018 [facility] HEMATOLOGY Lymphocytes # 2.0 K/CMM 1.0 - 5.5 09/05/2018 [facility] HEMATOLOGY Monocytes # 1.0 K/CMM 0.0 - 0.8 09/05/2018 [facility] HEMATOLOGY Eosinophils # 0.3 K/CMM 0.0 - 0.5 09/05/2018 [facility] HEMATOLOGY Eosinophils 3.2 % 0.0 - 4.0 09/05/2018 [facility] HEMATOLOGY Segs 65.0 % 45.0 - 75.0 09/05/2018 [facility] HEMATOLOGY Monocytes 10.1 % 2.0 - 12.0 09/05/2018 [facility] HEMATOLOGY Lymphocytes 21.0 % 20.0 - 40.0 09/05/2018 [facility] LIPIDS VLDL 11 09/05/2018 [facility] LIPIDS LDL (Calculated) 94 mg/dL <=99 mg/dL 09/05/2018 [facility] LIPIDS HDL 50 mg/dL >=61 mg/dL 09/05/2018 [facility] LIPIDS CHD Risk 3.10 4.00 - 7.30 09/05/2018 [facility] LIPIDS Trig 53 mg/dL <=149 mg/dL 09/05/2018 [facility] LIPIDS Chol 155 mg/dL <=199 mg/dL 09/05/2018 [facility] SPECIAL CHEMISTRY Hgb A1C 5.5 % <=5.6 % 09/05/2018 [facility] CHEM PANEL Lactic Acid Lvl 1.9 mMol/L 0.5 - 2.2 09/05/2018 [facility] CHEM PANEL eGFR 50 mL/min/1.73m2 09/04/2018 Result Comment: The eGFR is calculated using the CKD-EPI formula. In most young, healthy individuals the eGFR will be >90 mL/min/1.73m2. The eGFR declines with age. An eGFR of 60-89 may be normal in some populations, particularly the elderly, for whom the CKD-EPI formula has not been extensively validated. Use of the eGFR is not recommended in the following populations: Individuals with unstable creatinine concentrations, including patients and those with serious co-morbid conditions. Patients with extremes in muscle mass or diet. The data above are obtained from the National Kidney Disease Education Program (NKDEP) which additionally recommends that when the eGFR is used in patients with extremes of body mass index for purposes of drug dosing, the eGFR should be multiplied by the estimated BMI. [facility] CHEM PANEL Globulin 4.7 g/dL 2.7 - 4.2 09/04/2018 [facility] CHEM PANEL AGAP 15.6 meq/L 10.0 - 20.0 09/04/2018 [facility] CHEM PANEL AST 17 unit/L 0 - 37 09/04/2018 [facility] CHEM PANEL ALT 7 unit/L 0 - 65 09/04/2018 [facility] CHEM PANEL Albumin Lvl 3.5 g/dL 3.5 - 5.0 09/04/2018 [facility] CHEM PANEL B/C Ratio 23 6 - 25 09/04/2018 [facility] CHEM PANEL Bili Total 0.4 mg/dL 0.2 - 1.3 09/04/2018 [facility] CHEM PANEL Alk Phos 79 unit/L 39 - 136 09/04/2018 [facility] CHEM PANEL Glucose Lvl 99 mg/dL 70 - 99 09/04/2018 [facility] CHEM PANEL Creatinine Lvl 1.38 mg/dL 0.50 - 1.40 09/04/2018 [facility] CHEM PANEL BUN 32 mg/dL 7 - 22 09/04/2018 [facility] CHEM PANEL A/G Ratio 0.7 0.7 - 1.6 09/04/2018 [facility] CHEM PANEL Calcium Lvl 8.9 mg/dL 8.5 - 10.5 09/04/2018 [facility] CHEM PANEL Total Protein 8.2 g/dL 6.4 - 8.4 09/04/2018 [facility] CHEM PANEL Sodium Lvl 141 meq/L 135 - 145 09/04/2018 [facility] CHEM PANEL Potassium Lvl 4.6 meq/L 3.5 - 5.1 09/04/2018 [facility] CHEM PANEL Chloride Lvl 106 meq/L 95 - 109 09/04/2018 [facility] CHEM PANEL CO2 24 meq/L 24 - 32 09/04/2018 [facility] MCH 25.9 pg 27.0 - 31.0 09/04/2018 [facility] Platelet 241 K/CMM 133 - 450 09/04/2018 [facility] MCHC 33.0 g/dL 32.0 - 36.0 09/04/2018 [facility] RDW 17.5 % 11.5 - 14.5 09/04/2018 [facility] MCV 78.4 fL 80.0 - 94.0 09/04/2018 [facility] Hct 36.0 % 42.0 - 54.0 09/04/2018 [facility] Hgb 11.9 g/dL 14.0 - 18.0 09/04/2018 [facility] RBC 4.59 M/CMM 4.70 - 6.10 09/04/2018 [facility] WBC 11.0 K/CMM 3.7 - 10.4 09/04/2018 [facility] MPV 7.5 fL 7.4 - 10.4 09/04/2018 [facility] Abdomen/Pelvis w/wo IV contrast CT Abdomen/Pelvis w/wo IV contrast CT Patient Name: SIMON ORDAZ : 1945; Age: 73 years Male MR: [id number] Study: Abdomen/Pelvis w/wo IV contrast CT 09/04/2018 15:03 MOLDER Clinical Indication: - concern for infected mesh. Laparoscopic band one year prior, concern for infection. COMPARISON: 06/28/2018. 04/04/2018. 02/08/2017. 01/17/2017. TECHNIQUE: Helical imaging was performed diaphragm through the symphysis without and with IV, multiplanar reformations obtained after the administration of IV contrast. CT imaging performed at this location utilizes radiation dose optimization techniques which include one or more of the following: -Automated exposure control -Adjustment of the mA and/or kV according to patient size -Use of iterative reconstruction technique CT Radiation Dose DLP 2502 mGy-cm IV contrast: 100 mL Omnipaque FINDINGS: LOWER CHEST: Right lower lobe infiltrate. Coronary artery calcifications. ABDOMEN: No free air. Anterior abdominal wall midline wound contains central air and fluid with thick walled peripheral component. In total this measures 9 cm transverse by 5.5 cm AP by 16.5 cm CC. The wall measures 1.7 cm in diameter. This compares to 6.5 cm transverse by 4.7 cm AP by 12.5 cm CC. The wall measured 0.82 cm. Small hiatal hernia. LIVER: Normal. BILIARY TREE: Normal. GALLBLADDER: Normal. PANCREAS: Normal. SPLEEN: Normal. ADRENALS: Normal. KIDNEYS: No hydronephrosis. 8 mm left renal lesion measures 61 Hounsfield units. This appears more prominent than on 01/17/2017. PELVIS: No pelvic mass. The urinary bladder is normal. Multiple lower pelvic stacy. Small umbilical fat-containing hernias. BOWEL: No small bowel obstruction. Mild degree of colonic stool. Normal appendix. PERITONEUM: No free intraperitoneal fluid. RETROPERITONEUM: The aorta is normal. There is no pathologic lymphadenopathy. MUSCULOSKELETAL: The skeleton is intact. IMPRESSION: 1. Increase size and wall thickening to the ventral abdominal midline wound. Internal air and fluid collection is suspicious for pus. 2. Right lower lobe infiltrate. 3. Similar appearance to the left renal lesion for which continued surveillance is advised. 4. Normal appendix. SL: [id number] 09/04/2018 - - Read by: Nirav Lord MD Dictated Date/time: 09/05/18 09:36 Electronically Signed by: Nirav Lord MD 09/05/18 09:55 FINAL REPORT [facility] Abdomen wo IV contrast CT Abdomen wo IV contrast CT CT ABDOMEN WITHOUT CONTRAST: HISTORY: Nonhealing abdominal wall wound infection. TECHNIQUE: Multislice axial axial acquisitions were done through the abdomen without IV contrast. Oral contrast was administered. Sagittal and coronal reformatted images were done. DLP 1820 mGycm. FINDINGS: There has been interval removal of the Lap Band and port since the CT on 04/04/2018. There has been significant decrease in size of the fluid collection in the anterior abdominal wall which previously contained the port. There is a residual thick wall measuring approximately 16 cm longitudinally and 5 x 3 cm in maximum transverse dimension. There is minimal fluid in the cavity with a couple of small gas bubbles suggesting communication with the skin surface. There appears to be packing in the umbilicus. The abdominal wall musculature appears intact without evidence of hernia. There is no intra-abdominal abscess, fistula or fluid collection. There is no free fluid or pneumoperitoneum. No gastrointestinal ulcerations in the region of the previous Lap Band are seen. The remainder of the visible gastrointestinal tract is within normal limits. The liver, spleen, pancreas, kidneys and adrenal glands show no significant abnormalities. The gallbladder is contracted. The pelvic organs are not included. Atherosclerotic calcifications are noted in the aorta and iliac arteries without other significant retroperitoneal abnormalities. There are no significant osseous abnormalities. There are no significant abnormalities in the visible lung bases or lower pleural spaces. IMPRESSION: 1. Interval removal of the Lap Band and port since 04/04/2018. 2. Interval decrease in size of the anterior abdominal wall abscess, now consisting predominantly of a residual thick wall and a small amount of fluid. There is no evidence of intraperitoneal communication, abscess or dehiscence. 3. No other acute intra-abdominal process. [id number] 06/28/2018 - - Read by: Pritesh Wills MD Dictated Date/time: 06/28/18 16:27 Electronically Signed by: Pritesh Wills MD 06/28/18 16:45 FINAL REPORT [facility] Abscess abdomen peritoneum drainage VR Abscess abdomen peritoneum drainage VR EXAM: VIR Ultrasound Guided Abscess Drainage Catheter Placement. DATE: 04/05/2018 2:11 PM CDT PROCEDURE(S) PERFORMED: Ultrasound-guided abdominal abscess drainage catheter placement . INDICATION: 73 years year-old Male with A midline soft tissue abscess in the same area as the LAP-BAND PRE-PROCEDURE DIAGNOSIS: Midline Abscess POST-PROCEDURE DIAGNOSIS: Midline Abscess FACULTY: Joshua West MD RESIDENT/FELLOW/HOSPITAL UNIT CLERK: None SUPERVISION: Not applicable ANESTHESIA/SEDATION: Moderate sedation SPECIMEN: Bloody purulent fluid was sent for analysis DRAINS: 12-Haitian APD catheter ESTIMATED BLOOD LOSS: Less than 1 mL COMPLICATIONS: None RADIATION DOSE: 0 mGy PROCEDURE/FINDINGS: The risks, benefits, and alternatives of the procedure were discussed, including the possibility of nondiagnostic sampling, and the patient's questions and concerns were addressed. Written consent was then obtained. Patient was placed in supine position. A formal time-out procedure was completed. Preliminary ultrasound scan was then performed demonstrating a large midline collection. A safe ultrasound needle entry pathway was selected, and the overlying skin was marked. The midabdomen was then prepped and draped in standard sterile fashion. Maximal sterile barrier precautions were used. Subsequently, after 1% lidocaine local anesthesia, a 18-gauge needle was advanced into the targeted collection under ultrasound guidance. Position was confirmed with aspiration of a small amount of purulent fluid. The needle was removed, and a 0.035 inch [employer] wire was then advanced through the catheter i nto the collection, with wire positioning confirmed with ultrasoundimaging. Serial dilation was performed over the wire with 8 and 12 Haitian dilators. A 12 Haitian locking pigtail drainage catheter was then advanced over the wire into the collection. The wire was removed, and the pigtail was formed and locked within the fluid collection, confirmed with ultrasound imaging. Following this, a total of 30 mL of purulent fluid were aspirated, and a sample sent for culture. The catheter was secured to the skin with a 2-0 Prolene stitch and a sterile dressing applied. The catheter was left connected to a bag for external gravity drainage. The patient appeared to tolerate the procedure well. IMPRESSION: 1. Ultrasound-guided percutaneous abdominal abscess drainage catheter placement with 30 mL of purulent fluid aspirated and a sample sent for culture. PLAN: The catheter should be flushed with 5 mL of normal saline daily. The patient should return for catheter check once the output has been less than 10 cc of nonpurulent fluid per day for at least [address] Joshua West MD was present for the procedure. 04/05/2018 - - Read by: Joshua West MD Dictated Date/time: 04/05/18 15:42 Electronically Signed by: Joshua West MD 04/05/18 15:46 FINAL REPORT [facility] Abdomen/Pelvis w IV contrast CT Abdomen/Pelvis w IV contrast CT EXAM: CT ABDOMEN AND PELVIS WITH CONTRAST DATE: 04/04/2018 1:15 PM CDT INDICATION: - please give po contrast ADDITIONAL INFORMATION: Recent abdominal surgery and tenderness along the incision scar, concern for sepsis. Evaluate abscess or intra-abdominal leakage. COMPARISON: CT abdomen and pelvis with IV contrast January 17, 2017. TECHNIQUE: Volumetric CT acquisition of the abdomen and pelvis after the intravenous administration contrast. Axial, coronal and sagittal reconstructions. Postcontrast phases: Venous and delayed. IV contrast: 100Cc Visipaque Enteric contrast: None. DLP: 2369 mGy-cm FINDINGS: Lines, tubes and hardware: Gastric lap band and tubing. Lower thorax: Right subsegmental atelectasis. Liver: No hepatomegaly. No focal hepatic lesions. Biliary tree: No intra- or extrahepatic biliary ductal dilation. Gallbladder: Normal. No CT evidence of gallstones. Pancreas: No mass or ductal dilation. Spleen: No splenomegaly. Adrenals: No Nodularity or irregularity. Kidneys and ureters: * No hydronephrosis or hydroureter. * Unchanged 9 mm hypodensity in the inferior pole of left kidney, too small to characterize, likely renal cyst. * Bilateral kidneys show normal and equal nephrogram. Bladder: Normal. Reproductive organs: Enlarged prostate with median lobe hypertrophy. Gastrointestinal tract: Stomach: Postsurgical changes of Matilda-en-Y. Small bowel: Normal. Colon: Postoperative changes in the sigmoid colon. Normal caliber colonic loops without evidence of obstruction or ileus. No contrast extravasation. Appendix: Normal. Peritoneum, mesentery and retroperitoneum: No free air, ascites or loculated fluid. Lymph nodes: No enlarged abdominal or pelvic lymph nodes. Vasculature: Scattered atherosclerotic calcification of aorta and its branches. Bones: No acute abnormality. Soft tissues: Large rim-enhancing thick walled subcutaneous fluid collection measuring approximately 17.2 x 13.5 x 7.8 cm (longitudinal by transverse by AP) in the anterior abdominal wall with injection port and tubing for lap band and surrounding fat stranding. IMPRESSION: 1. A 17.2 x 13.5 x 7.8 cm large rim-enhancing thick walled subcutaneous fluid collection in the anterior abdominal wall with surrounding fat stranding, likely representing infected seroma. 2. No intra-abdominal collection to suggest abscess. No evidence of contrast extravasation. 3. Unchanged tiny hypodensity in the inferior pole of left kidney, too small to characterize, likely renal cyst. 4. Enlarged prostate with median lobe hypertrophy. Clinical correlation with PSA. 04/04/2018 - - This report was dictated by a Machine Set Up Technician/Fellow. I have personally reviewed the images as well as the Resident's interpretation and agree with the findings. Read by: Shania Ray MD Resident: Shania Ray MD Dictated Date/time: 04/04/18 15:13 Electronically Signed by: Javan Lawton MD 04/04/18 16:31 FINAL REPORT [facility] Brain wo contrast CT Brain wo contrast CT PATIENT NAME: SIMON ORDAZ : 1945; Age: 72 years y/o Male MR: [id number] STUDY: Brain wo contrast CT 08/30/2017 1:29 PM MOLDER ORDERING PHYSICIAN: Brad Lopez MD CLINICAL INDICATION: - S06.5X9A Traumatic subdural hemorrhage with loss of consciousness of unspecified duration, initial encounter; COMPARISON: 08/13/[address] TECHNIQUE: Noncontrast images of the brain are obtained from the skull base to the vertex. Axial, sagittal, and coronal images are interpreted. DLP: 1260 mGy-cm This exam was performed according to our departmental dose-optimization protocol, which includes automated exposure control, adjustment of the mA and/or kV according to patient size and/or use of iterative reconstruction technique. FINDINGS: BRAIN PARENCHYMA: There is no evidence of cerebral edema, mass, mass effect, hemorrhage, or recent cortical infarct. The jacinto-white distinction is maintained. There is mild generalized cortical and deep white matter volume loss. Chronic small vessel ischemic changes are present. There are calcified atherosclerotic changes. CEREBELLOPONTINE REGIONS AND SKULL BASE: The cerebellopontine angles appear unremarkable. No skull base abnormality is seen. VENTRICLES/SULCI/CISTERNS: There is passive enlargement of the ventricles related to volume loss. The basal cisterns are patent. ORBITS, VISUALIZED PARANASAL SINUSES AND MASTOIDS: Paranasal sinuses are clear. The mastoid air cells are clear. No orbital pathology is seen. IMPRESSION: Resolution of intracranial hemorrhages No acute findings 08/30/2017 - - Read by: Joselo Posadas MD Dictated Date/time: 08/30/17 14:43 Electronically Signed by: Joselo Posadas MD 08/30/17 14:44 FINAL REPORT [facility] CHEM PANEL Ammonia 38.0 umol/L <=45.0 uMol/L 08/14/2017 [facility] ELECTROLYTES CO2 28 meq/L 24 - 32 08/14/2017 [facility] ELECTROLYTES Potassium Lvl 4.5 meq/L 3.5 - 5.1 08/14/2017 [facility] ELECTROLYTES Chloride Lvl 103 meq/L 95 - 109 08/14/2017 [facility] ELECTROLYTES BUN 18 mg/dL 7 - 22 08/14/2017 [facility] ELECTROLYTES Glucose Lvl 160 mg/dL 70 - 99 08/14/2017 [facility] ELECTROLYTES Calcium Lvl 8.3 mg/dL 8.5 - 10.5 08/14/2017 [facility] ELECTROLYTES eGFR 63 mL/min/1.73m2 08/14/2017 Result Comment: The eGFR is calculated using the CKD-EPI formula. In most young, healthy individuals the eGFR will be >90 mL/min/1.73m2. The eGFR declines with age. An eGFR of 60-89 may be normal in some populations, particularly the elderly, for whom the CKD-EPI formula has not been extensively validated. Use of the eGFR is not recommended in the following populations: Individuals with unstable creatinine concentrations, including patients and those with serious co-morbid conditions. Patients with extremes in muscle mass or diet. The data above are obtained from the National Kidney Disease Education Program (NKDEP) which additionally recommends that when the eGFR is used in patients with extremes of body mass index for purposes of drug dosing, the eGFR should be multiplied by the estimated BMI. [facility] ELECTROLYTES Sodium Lvl 139 meq/L 135 - 145 08/14/2017 [facility] ELECTROLYTES Creatinine Lvl 1.15 mg/dL 0.50 - 1.40 08/14/2017 [facility] ELECTROLYTES AGAP 12.5 meq/L 10.0 - 20.0 08/14/2017 [facility] HEMATOLOGY Basophils # 0.1 K/CMM 0.0 - 0.2 08/14/2017 [facility] HEMATOLOGY Eosinophils # 0.1 K/CMM 0.0 - 0.5 08/14/2017 [facility] HEMATOLOGY Segs 77.6 % 45.0 - 75.0 08/14/2017 [facility] HEMATOLOGY Segs-Bands # 8.7 K/CMM 1.5 - 8.1 08/14/2017 [facility] HEMATOLOGY Monocytes # 0.7 K/CMM 0.0 - 0.8 08/14/2017 [facility] HEMATOLOGY Lymphocytes # 1.6 K/CMM 1.0 - 5.5 08/14/2017 [facility] HEMATOLOGY Lymphocytes 14.3 % 20.0 - 40.0 08/14/2017 [facility] HEMATOLOGY Monocytes 6.4 % 2.0 - 12.0 08/14/2017 [facility] HEMATOLOGY Eosinophils 1.1 % 0.0 - 4.0 08/14/2017 [facility] HEMATOLOGY Basophils 0.6 % 0.0 - 1.0 08/14/2017 [facility] HEMATOLOGY Hct 39.6 % 42.0 - 54.0 08/14/2017 [facility] HEMATOLOGY MCH 26.2 pg 27.0 - 31.0 08/14/2017 [facility] HEMATOLOGY MCV 79.6 fL 80.0 - 94.0 08/14/2017 [facility] HEMATOLOGY RDW 18.8 % 11.5 - 14.5 08/14/2017 [facility] HEMATOLOGY MCHC 32.9 g/dL 32.0 - 36.0 08/14/2017 [facility] HEMATOLOGY Platelet 252 K/CMM 133 - 450 08/14/2017 [facility] HEMATOLOGY MPV 8.2 fL 7.4 - 10.4 08/14/2017 [facility] HEMATOLOGY WBC 11.1 K/CMM 3.7 - 10.4 08/14/2017 [facility] HEMATOLOGY RBC 4.97 M/CMM 4.70 - 6.10 08/14/2017 [facility] HEMATOLOGY Hgb 13.0 g/dL 14.0 - 18.0 08/14/2017 [facility] CHEM PANEL Lactic Acid Lvl 1.4 mMol/L 0.5 - 2.2 08/13/2017 [facility] DRUG SCREEN U Cannab Scr Negative *NA* (08/13/17 10:15 AM) Negative 08/13/2017 [facility] DRUG SCREEN UDS Note See Note (08/13/17 10:15 AM) 08/13/2017 [facility] DRUG SCREEN U Phencyc Scr Negative *NA* (08/13/17 10:15 AM) Negative 08/13/2017 [facility] DRUG SCREEN U Benzodia Scr Positive *ABN* (08/13/17 10:15 AM) Negative 08/13/2017 [facility] DRUG SCREEN U Opiate Scr Negative *NA* (08/13/17 10:15 AM) Negative 08/13/2017 [facility] DRUG SCREEN U Cocaine Scr Negative *NA* (08/13/17 10:15 AM) Negative 08/13/2017 [facility] DRUG SCREEN U Rhonda Scr Negative *NA* (08/13/17 10:15 AM) Negative 08/13/2017 [facility] DRUG SCREEN U Amph Scr Negative *NA* (08/13/17 10:15 AM) Negative 08/13/2017 [facility] URINE AND STOOL UA Sq Epi None Seen (08/13/17 10:15 AM) Few 08/13/2017 [facility] URINE AND STOOL UA RBC None Seen (08/13/17 10:15 AM) 0 - 2 08/13/2017 [facility] URINE AND STOOL UA WBC None Seen (08/13/17 10:15 AM) None Seen 08/13/2017 [facility] URINE AND STOOL UA Bacteria None Seen (08/13/17 10:15 AM) None Seen 08/13/2017 [facility] URINE AND STOOL UA Urobilinogen 0.2 EU/dL 0.1 - 1.0 08/13/2017 [facility] URINE AND STOOL UA Bili Negative *NA* (08/13/17 10:15 AM) Negative 08/13/2017 [facility] URINE AND STOOL UA Blood Negative (08/13/17 10:15 AM) Negative 08/13/2017 [facility] URINE AND STOOL UA Nitrite Negative (08/13/17 10:15 AM) Negative 08/13/2017 [facility] URINE AND STOOL UA Leuk Est Negative (08/13/17 10:15 AM) Negative 08/13/2017 [facility] URINE AND STOOL UA Spec Grav 1.020 <=1.030 08/13/2017 [facility] URINE AND STOOL UA Turbidity Clear (08/13/17 10:15 AM) Clear 08/13/2017 [facility] URINE AND STOOL UA Color Yellow *NA* (08/13/17 10:15 AM) Yellow 08/13/2017 [facility] URINE AND STOOL UA Ketones Negative mg/dL Negative mg/dL 08/13/2017 [facility] URINE AND STOOL UA Glucose Negative mg/dL Negative mg/dL 08/13/2017 [facility] URINE AND STOOL UA Protein Negative mg/dL Negative mg/dL 08/13/2017 [facility] URINE AND STOOL UA pH 6.0 5.0 - 8.0 08/13/2017 [facility] Brain wo contrast CT Brain wo contrast CT EXAM: CT BRAIN WITHOUT CONTRAST DATE: 08/13/2017 12:30 PM MOLDER INDICATION: - eval hemorrhage COMPARISON: CT of the head performed at 5:43 and 6:16 AM today TECHNIQUE: Routine axial CT images of the brain were obtained IV contrast: None. FINDINGS: Stable examination. Again identified subarachnoid hemorrhage is present in the cingulate gyrus and in the anterior interhemispheric region. The scalp laceration the left parietal region remains unchanged. Impression: 1. No significant change in small amount of subarachnoid hemorrhage in the cingulate sulcus sulcus and anterior interhemispheric region. 2. Soft tissue swelling at the left parietal scalp with overlying stacy is again noted. [place] SECTION: Neuro 08/13/2017 - - This report was dictated by a Machine Set Up Technician/Fellow. I have personally reviewed the images as well as the Resident's interpretation and agree with the findings. Read by: Ky Deleon MD Resident: Ky Deleon MD Dictated Date/time: 08/13/17 14:28 Electronically Signed by: Joe Mccollum 08/13/17 17:19 FINAL REPORT [facility] BLOOD BANK RESULTS ABO/Rh A POS 08/13/2017 [facility] BLOOD BANK RESULTS Antibody Scrn Negative (08/13/17 5:20 AM) 08/13/2017 [facility] CHEM PANEL Lactic Acid Lvl 2.2 mMol/L 0.5 - 2.2 08/13/2017 [facility] ELECTROLYTES AGAP 14.3 meq/L 10.0 - 20.0 08/13/2017 [facility] ELECTROLYTES eGFR 61 mL/min/1.73m2 08/13/2017 Result Comment: The eGFR is calculated using the CKD-EPI formula. In most young, healthy individuals the eGFR will be >90 mL/min/1.73m2. The eGFR declines with age. An eGFR of 60-89 may be normal in some populations, particularly the elderly, for whom the CKD-EPI formula has not been extensively validated. Use of the eGFR is not recommended in the following populations: Individuals with unstable creatinine concentrations, including patients and those with serious co-morbid conditions. Patients with extremes in muscle mass or diet. The data above are obtained from the National Kidney Disease Education Program (NKDEP) which additionally recommends that when the eGFR is used in patients with extremes of body mass index for purposes of drug dosing, the eGFR should be multiplied by the estimated BMI. [facility] ELECTROLYTES Calcium Lvl 8.9 mg/dL 8.5 - 10.5 08/13/2017 [facility] ELECTROLYTES Chloride Lvl 105 meq/L 95 - 109 08/13/2017 [facility] ELECTROLYTES CO2 25 meq/L 24 - 32 08/13/2017 [facility] ELECTROLYTES Creatinine Lvl 1.19 mg/dL 0.50 - 1.40 08/13/2017 [facility] ELECTROLYTES BUN 21 mg/dL 7 - 22 08/13/2017 [facility] ELECTROLYTES Glucose Lvl 134 mg/dL 70 - 99 08/13/2017 [facility] ELECTROLYTES Potassium Lvl 4.3 meq/L 3.5 - 5.1 08/13/2017 [facility] ELECTROLYTES Sodium Lvl 140 meq/L 135 - 145 08/13/2017 [facility] HEMATOLOGY Segs 81.5 % 45.0 - 75.0 08/13/2017 [facility] HEMATOLOGY Monocytes 6.6 % 2.0 - 12.0 08/13/2017 [facility] HEMATOLOGY Lymphocytes 10.8 % 20.0 - 40.0 08/13/2017 [facility] HEMATOLOGY Segs-Bands # 13.2 K/CMM 1.5 - 8.1 08/13/2017 [facility] HEMATOLOGY Basophils 0.5 % 0.0 - 1.0 08/13/2017 [facility] HEMATOLOGY Eosinophils 0.6 % 0.0 - 4.0 08/13/2017 [facility] HEMATOLOGY Monocytes # 1.1 K/CMM 0.0 - 0.8 08/13/2017 [facility] HEMATOLOGY Eosinophils # 0.1 K/CMM 0.0 - 0.5 08/13/2017 [facility] HEMATOLOGY Lymphocytes # 1.8 K/CMM 1.0 - 5.5 08/13/2017 [facility] HEMATOLOGY Basophils # 0.1 K/CMM 0.0 - 0.2 08/13/2017 [facility] HEMATOLOGY Microcyte 1+ *ABN* (08/13/17 5:18 AM) None Seen 08/13/2017 [facility] HEMATOLOGY Max Amplitude Rapid 73 mm 52 - 71 08/13/2017 [facility] HEMATOLOGY G-value Rapid 13.5 K d/sc 5.0 - 11.6 08/13/2017 [facility] HEMATOLOGY Estimated % Lysis Rapid 0.9 % 0.0 - 7.5 08/13/2017 [facility] HEMATOLOGY Angle Rapid 80 degrees 64 - 80 08/13/2017 [facility] HEMATOLOGY R-time Rapid 0.8 min 0.4 - 0.7 08/13/2017 [facility] HEMATOLOGY K-time Rapid 0.8 min 0.6 - 2.3 08/13/2017 [facility] HEMATOLOGY ACT (TEG) Rapid 121 s 86 - 118 08/13/2017 [facility] HEMATOLOGY [place] Rapid 0.6 min 08/13/2017 [facility] HEMATOLOGY MCV 77.8 fL 80.0 - 94.0 08/13/2017 [facility] HEMATOLOGY Hct 44.0 % 42.0 - 54.0 08/13/2017 [facility] HEMATOLOGY WBC 16.3 K/CMM 3.7 - 10.4 08/13/2017 [facility] HEMATOLOGY RBC 5.66 M/CMM 4.70 - 6.10 08/13/2017 [facility] HEMATOLOGY Hgb 13.7 g/dL 14.0 - 18.0 08/13/2017 [facility] HEMATOLOGY MPV 7.7 fL 7.4 - 10.4 08/13/2017 [facility] HEMATOLOGY Platelet 293 K/CMM 133 - 450 08/13/2017 [facility] HEMATOLOGY RDW 18.6 % 11.5 - 14.5 08/13/2017 [facility] HEMATOLOGY MCHC 31.2 g/dL 32.0 - 36.0 08/13/2017 [facility] HEMATOLOGY MCH 24.3 pg 27.0 - 31.0 08/13/2017 [facility] TOXICOLOGY Ethanol Lvl 73 mg/dL 08/13/2017 [facility] TOXICOLOGY Etoh (%) 0.073 % 08/13/2017 [facility] Brain wo contrast CT Brain wo contrast CT EXAM: CT BRAIN WITHOUT CONTRAST DATE: 08/13/2017 6:16 AM MOLDER INDICATION: Subarachnoid hemorrhage after trauma COMPARISON: 08/13/2017 5:43 AM outside exam TECHNIQUE: Routine axial images of the brain were obtained using a conventional ct scanner. Reformatted images in the sagittal and coronal plane were included. IV contrast: None. FINDINGS: There is no interval change in the minimal subarachnoid hemorrhage present in the cingulate sulcus and anterior interhemispheric region. The appearance of the remainder of the brain parenchyma is alsounchanged. In particular, there has been no significant interval hemorrhage or development of hydrocephalus. Slight increase in scalp soft tissue swelling in the left parietal region. Incidental imaging of the orbits, paranasal sinuses, skull, and skull base also demonstrates no interval change. IMPRESSION: Stable extent of subarachnoid hemorrhage. CT examination of the brain parenchyma itself is unchanged. 08/13/2017 - - Read by: Tarik Burt MD Dictated Date/time: 08/13/17 08:39 Electronically Signed by: Tarik Burt MD 08/13/17 08:41 FINAL REPORT [facility] Guided Needle BX/Asp/Inj/NeedLoc US Guided Needle BX/Asp/Inj/NeedLoc US EXAM: Guided Needle BX/Asp/Inj/NeedLoc US HISTORY: 72 years old Male with post gastric band surgery abdominal wall seroma development. Primary team requested drainage catheter placement. PRE-PROCEDURE DIAGNOSIS: Post gastric band surgery abdominal wall seroma POST-PROCEDURE DIAGNOSIS: Same FACULTY: Dr. Ling MD RESIDENT/FELLOW/HOSPITAL UNIT CLERK: ANESTHESIA/SEDATION: Moderate sedation. SPECIMEN:None. DRAINS: 8 Haitian pigtail catheter ESTIMATED BLOOD LOSS: Less than 10 cc COMPLICATIONS: None FINDINGS: Focal ultrasound of right upper abdomen shows multiloculated collection around gastric banding port. PROCEDURE: The risks, benefits, and alternatives of the procedure were discussed and the patient's questions and concerns were addressed. Written consent was then obtained. Patient was placed in supine position. Targeted ultrasound was performed, the approach was chosen, and the overlying skin marked. The patient was then prepped and draped in usual sterile fashion. A formal time-out procedure was completed. Local anesthesia was administered. Utilizing continuous ultrasound guidance an 8.5-Haitian all-purpose drainage with sharp needle was advanced into the collection and the catheter secured with 2-0 Prolene. Positioning was confirmed by US imaging. A total of 200 cc of fluid was removed. Hemostasis was achieved and the patient tolerated the procedure well without immediate complication or complaint. Written and verbal post-procedure instructions were given. The patient is in stable condition. IMPRESSION: 1. Image-guided aspiration with placement of drainage catheter into anterior abdominal wall collection. FOLLOW-UP RECOMMENDATIONS: Per clinical team. I, Dr. Dubon was present throughout the procedure. 02/16/2017 - - Read by: Paresh Dubon MD Dictated Date/time: 02/16/17 17:13 Electronically Signed by: Paresh Dubon MD 02/16/17 17:18 FINAL REPORT [facility] Abdomen cyst aspiration w guidance CT Abdomen cyst aspiration w guidance CT EXAM: INDICATION: 72 years year-old Male with history of prior gastric banding presents with a fluid collection around the LAP-BAND. He is here for a drainage of this fluid collection. A discussion with the referring surgeon Dr. Siddiqui was performed before proceeding with this procedure. PRE-PROCEDURE DIAGNOSIS: Fluid collection around the LAP-BAND POST-PROCEDURE DIAGNOSIS: Fluid collection around the LAP-BAND FACULTY: Fredis Sood MD RESIDENT/FELLOW/HOSPITAL UNIT CLERK: Pritesh Boogie M.D. SUPERVISION: I was present for this procedure. ANESTHESIA/SEDATION: Moderate sedation SPECIMEN: 550 mL of serous fluid DRAINS: None ESTIMATED BLOOD LOSS: Less than 1 mL COMPLICATIONS: None RADIATION DOSE: 455 mGy PROCEDURE/FINDINGS: The risks, benefits, and alternatives of the procedure were discussed, including the possibility of nondiagnostic sampling, and the patient's questions and concerns were addressed. Written consent was then obtained. Patient was placed in supine position. A formal time-out procedure was completed. Preliminary CT scan was then performed with a radiopaque grid in place, demonstrating fluid collection in the subcutaneous plane around the LAP-BAND.. A safe anterior needle entry pathway was selected, and the overlying skin was marked. The skin was then prepped and draped in standard sterile fashion. Maximal sterile barrier precautions were used. Subsequently, after 1% lidocaine local anesthesia, a 5 Haitian/19 gauge sheathed catheter/needle was advanced into the targeted collection under CT guidance. Position was confirmed with aspiration of a small amount of serous fluid. About 200 mL of fluid was aspirated. Repeat computed tomography scan demonstrated significant amount of residual fluid. Therefore an ultrasound guidance was utilized. This showed that the fluid was multiloculated. Largest pockets where targeted multiple times and fluid aspirated to drain the locules. A total of 550 mL of fluid was removed. A post removal scan demonstrated a collapsed cavity. The patient tolerated the procedure well. The needle was removed and a sterile dressing was applied. IMPRESSION: 1.CT-guided and ultrasound-guided aspiration of a multiloculated collection in the anterior abdominal wall around the previously placed lap band. Dr. Fredis Sood MD was present for the procedure. 02/08/2017 - - Read by: Fredis Sood MD Dictated Date/time: 02/08/17 13:32 Electronically Signed by: Fredis Sood MD 02/09/17 21:18 FINAL REPORT [facility] Abdomen/Pelvis w IV contrast CT Abdomen/Pelvis w IV contrast CT Exam: CT Scan of the abdomen and pelvis with contrast Reason for Exam: - N50.9 Disorder of male genital organs, unspecified. Abdominal mass. Comparison Exam: CT scan 09/07/2016 Technique: Multiple axial images were obtained of the abdomen and pelvis. 5 mm slices were acquired after injection of 100 cc Omnipaque 300 IV. Oral contrast was also given. Reformatted sagittal and coronal images were obtained for additional diagnostic information. Total exam NAZ=8477 mGy-cm. This exam was performed according to our departmental dose-optimization program, which includes automated exposure control, adjustment of the MA and/or KV according to patient size and/or use of iterative reconstruction technique. Discussion: Moderate-sized hiatal hernia. Esophagus is distended with oral contrast material. Atelectasis seen within the right lung base. Severe slippage is seen of the lap band ring with approximately half of the stomach seen above the level of the lap band ring. However, oral contrast material is seen well into the small bowel. Liver and gallbladder are unremarkable. No biliary duct dilation. Portal venous system is patent. Adrenal Kidneys are unremarkable. No hydronephrosis or hydroureter. No dilated loops of bowel. The appendix is normal. Postoperative changes seen in the region of the sigmoid colon. Prostate gland and bladder are unremarkable. Previously described ventral hernia has been repaired. Well-circumscribed deep subcutaneous fluid collection is seen within the left lateral aspect of the anterior abdomen surrounding patient's LAP-BAND hub and tubing. It measures 19.6 x 12.5 x 5.7 cm. It is most compatible with a seroma. No acute bony abnormalities appreciated. No suspicious osteoblastic or osteolytic lesions. No evidence seen for abdominal aortic aneurysm or dissection. Findings discussed with nurse practitioner Tena on 01/17/2017 at 1324 hours. Impression: 1. Moderate-sized hiatal hernia. Severe slippage is seen of the lap band ring with approximately half of the stomach seen above the level of the lap band ring. However, oral contrast material is seen well into the small bowel. 2. Well-circumscribed deep subcutaneous fluid collection is seen within the left lateral aspect of the anterior abdomen surrounding patient's LAP-BAND hub and tubing. It measures 19.6 x 12.5 x 5.7 cm. It is most compatible with a seroma. No ventral hernia identified. 01/17/2017 - - Read by: Tesfaye Hatch MD Dictated Date/time: 01/17/17 13:05 Electronically Signed by: Tesfaye Hatch MD 01/17/17 13:26 FINAL REPORT [facility] Brain w/wo contrast MRI Brain w/wo contrast MRI PATIENT NAME: SIMON ORDAZ : 1945; Age: 71 years y/o Male MR: [id number] STUDY: Brain w/wo contrast MRI 01/17/2017 10:30 AM CDT ORDERING PHYSICIAN: Tracy Arce MD CLINICAL INDICATION: - G50.1 Atypical facial pain; COMPARISON: None TECHNIQUE : Multiplanar imaging of the brain was obtained both prior to and after uncomplicated IV administration of 19 mL Dotarem FINDINGS: BRAIN PARENCHYMA: There is no hemorrhage, mass lesion, extra axial collection, cerebral edema, or mass effect. Diffusion sequences are normal. The brain volume is age-appropriate with only mild cortical volume loss. There is no focal good or white matter signal abnormality. There is minimal, ill-defined the left pontine signal abnormality. There is normal signal in the cavernous sinuses and Meckel's caves. The cerebellar tonsils are above foramen magnum. The pituitary gland is age-appropriate. There is no abnormal enhancement. CEREBELLOPONTINE REGIONS AND SKULL BASE: The cerebellopontine angles appear unremarkable. No skull base abnormality is seen. VENTRICLES/SULCI/CISTERNS: The ventricles are normal in size and configuration. The basal cisterns are patent. VISUALIZED VESSELS: Major intracranial flow voids are preserved. ORBITS, VISUALIZED PARANASAL SINUSES AND MASTOIDS: Paranasal sinuses are clear. The mastoid air cells are clear. No orbital pathology is seen. IMPRESSION: 1. Very minimal left hemipontine signal abnormality likely reflects chronic small vessel ischemia. 2. The brain is otherwise normal 3. No clearly evident explanation for patient's pain 01/17/2017 - - Read by: Joselo Posadas MD Dictated Date/time: 01/17/17 12:17 Electronically Signed by: Joselo Posadas MD 01/17/17 12:25 FINAL REPORT [facility] ELECTROLYTES AGAP 12.4 meq/L 10.0 - 20.0 10/09/2016 [facility] ELECTROLYTES eGFR 84 mL/min/1.73m2 10/09/2016 Result Comment: The eGFR is calculated using the CKD-EPI formula. In most young, healthy individuals the eGFR will be >90 mL/min/1.73m2. The eGFR declines with age. An eGFR of 60-89 may be normal in some populations, particularly the elderly, for whom the CKD-EPI formula has not been extensively validated. Use of the eGFR is not recommended in the following populations: Individuals with unstable creatinine concentrations, including patients and those with serious co-morbid conditions. Patients with extremes in muscle mass or diet. The data above are obtained from the National Kidney Disease Education Program (NKDEP) which additionally recommends that when the eGFR is used in patients with extremes of body mass index for purposes of drug dosing, the eGFR should be multiplied by the estimated BMI. [facility] ELECTROLYTES Calcium Lvl 8.9 mg/dL 8.5 - 10.5 10/09/2016 [facility] ELECTROLYTES CO2 25 meq/L 24 - 32 10/09/2016 [facility] ELECTROLYTES Chloride Lvl 102 meq/L 95 - 109 10/09/2016 [facility] ELECTROLYTES Potassium Lvl 4.4 meq/L 3.5 - 5.1 10/09/2016 [facility] ELECTROLYTES Sodium Lvl 135 meq/L 135 - 145 10/09/2016 [facility] ELECTROLYTES Creatinine Lvl 0.91 mg/dL 0.50 - 1.40 10/09/2016 [facility] ELECTROLYTES BUN 25 mg/dL 7 - 22 10/09/2016 [facility] ELECTROLYTES Glucose Lvl 113 mg/dL 70 - 99 10/09/2016 [facility] HEMATOLOGY RBC 4.08 M/CMM 4.70 - 6.10 10/09/2016 [facility] HEMATOLOGY WBC 8.5 K/CMM 3.7 - 10.4 10/09/2016 [facility] HEMATOLOGY Hct 36.6 % 42.0 - 54.0 10/09/2016 [facility] HEMATOLOGY Hgb 12.3 g/dL 14.0 - 18.0 10/09/2016 [facility] HEMATOLOGY MCV 89.7 fL 80.0 - 94.0 10/09/2016 [facility] HEMATOLOGY MCH 30.1 pg 27.0 - 31.0 10/09/2016 [facility] HEMATOLOGY RDW 16.0 % 11.5 - 14.5 10/09/2016 [facility] HEMATOLOGY MCHC 33.5 g/dL 32.0 - 36.0 10/09/2016 [facility] HEMATOLOGY MPV 8.6 fL 7.4 - 10.4 10/09/2016 [facility] HEMATOLOGY Platelet 153 K/CMM 133 - 450 10/09/2016 [facility] CHEM PANEL eGFR 63 mL/min/1.73m2 10/08/2016 Result Comment: The eGFR is calculated using the CKD-EPI formula. In most young, healthy individuals the eGFR will be >90 mL/min/1.73m2. The eGFR declines with age. An eGFR of 60-89 may be normal in some populations, particularly the elderly, for whom the CKD-EPI formula has not been extensively validated. Use of the eGFR is not recommended in the following populations: Individuals with unstable creatinine concentrations, including patients and those with serious co-morbid conditions. Patients with extremes in muscle mass or diet. The data above are obtained from the National Kidney Disease Education Program (NKDEP) which additionally recommends that when the eGFR is used in patients with extremes of body mass index for purposes of drug dosing, the eGFR should be multiplied by the estimated BMI. [facility] CHEM PANEL Chloride Lvl 99 meq/L 95 - 109 10/08/2016 [facility] CHEM PANEL Potassium Lvl 4.0 meq/L 3.5 - 5.1 10/08/2016 [facility] CHEM PANEL AGAP 13.0 meq/L 10.0 - 20.0 10/08/2016 [facility] CHEM PANEL CO2 25 meq/L 24 - 32 10/08/2016 [facility] CHEM PANEL Calcium Lvl 8.2 mg/dL 8.5 - 10.5 10/08/2016 [facility] CHEM PANEL Glucose Lvl 115 mg/dL 70 - 99 10/08/2016 [facility] CHEM PANEL BUN 36 mg/dL 7 - 22 10/08/2016 [facility] CHEM PANEL Sodium Lvl 133 meq/L 135 - 145 10/08/2016 [facility] CHEM PANEL Creatinine Lvl 1.16 mg/dL 0.50 - 1.40 10/08/2016 [facility] HEMATOLOGY Segs 80.4 % 45.0 - 75.0 10/08/2016 [facility] HEMATOLOGY Lymphocytes 10.3 % 20.0 - 40.0 10/08/2016 [facility] HEMATOLOGY Eosinophils # 0.2 K/CMM 0.0 - 0.5 10/08/2016 [facility] HEMATOLOGY Monocytes # 0.6 K/CMM 0.0 - 0.8 10/08/2016 [facility] HEMATOLOGY Lymphocytes # 1.0 K/CMM 1.0 - 5.5 10/08/2016 [facility] HEMATOLOGY Segs-Bands # 7.4 K/CMM 1.5 - 8.1 10/08/2016 [facility] HEMATOLOGY Basophils 0.3 % 0.0 - 1.0 10/08/2016 [facility] HEMATOLOGY Eosinophils 2.7 % 0.0 - 4.0 10/08/2016 [facility] HEMATOLOGY Monocytes 6.3 % 2.0 - 12.0 10/08/2016 [facility] HEMATOLOGY MPV 8.4 fL 7.4 - 10.4 10/08/2016 [facility] HEMATOLOGY Platelet 120 K/CMM 133 - 450 10/08/2016 [facility] HEMATOLOGY RDW 16.2 % 11.5 - 14.5 10/08/2016 [facility] HEMATOLOGY MCHC 33.1 g/dL 32.0 - 36.0 10/08/2016 [facility] HEMATOLOGY MCH 29.9 pg 27.0 - 31.0 10/08/2016 [facility] HEMATOLOGY MCV 90.4 fL 80.0 - 94.0 10/08/2016 [facility] HEMATOLOGY Hgb 12.2 g/dL 14.0 - 18.0 10/08/2016 [facility] HEMATOLOGY Hct 36.8 % 42.0 - 54.0 10/08/2016 [facility] HEMATOLOGY WBC 9.2 K/CMM 3.7 - 10.4 10/08/2016 [facility] HEMATOLOGY RBC 4.07 M/CMM 4.70 - 6.10 10/08/2016 [facility] HEMATOLOGY MPV 8.8 fL 7.4 - 10.4 10/07/2016 [facility] HEMATOLOGY Platelet 153 K/CMM 133 - 450 10/07/2016 [facility] HEMATOLOGY MCH 29.1 pg 27.0 - 31.0 10/07/2016 [facility] HEMATOLOGY MCV 91.1 fL 80.0 - 94.0 10/07/2016 [facility] HEMATOLOGY WBC 12.9 K/CMM 3.7 - 10.4 10/07/2016 [facility] HEMATOLOGY RDW 16.2 % 11.5 - 14.5 10/07/2016 [facility] HEMATOLOGY MCHC 32.0 g/dL 32.0 - 36.0 10/07/2016 [facility] HEMATOLOGY RBC 4.07 M/CMM 4.70 - 6.10 10/07/2016 [facility] HEMATOLOGY Hct 37.0 % 42.0 - 54.0 10/07/2016 [facility] HEMATOLOGY Hgb 11.8 g/dL 14.0 - 18.0 10/07/2016 [facility] ELECTROLYTES AGAP 11.5 meq/L 10.0 - 20.0 10/07/2016 [facility] ELECTROLYTES eGFR 44 mL/min/1.73m2 10/07/2016 Result Comment: The eGFR is calculated using the CKD-EPI formula. In most young, healthy individuals the eGFR will be >90 mL/min/1.73m2. The eGFR declines with age. An eGFR of 60-89 may be normal in some populations, particularly the elderly, for whom the CKD-EPI formula has not been extensively validated. Use of the eGFR is not recommended in the following populations: Individuals with unstable creatinine concentrations, including patients and those with serious co-morbid conditions. Patients with extremes in muscle mass or diet. The data above are obtained from the National Kidney Disease Education Program (NKDEP) which additionally recommends that when the eGFR is used in patients with extremes of body mass index for purposes of drug dosing, the eGFR should be multiplied by the estimated BMI. [facility] ELECTROLYTES Calcium Lvl 8.1 mg/dL 8.5 - 10.5 10/07/2016 [facility] ELECTROLYTES CO2 26 meq/L 24 - 32 10/07/2016 [facility] ELECTROLYTES Chloride Lvl 102 meq/L 95 - 109 10/07/2016 [facility] ELECTROLYTES Sodium Lvl 135 meq/L 135 - 145 10/07/2016 [facility] ELECTROLYTES Potassium Lvl 4.5 meq/L 3.5 - 5.1 10/07/2016 [facility] ELECTROLYTES Creatinine Lvl 1.55 mg/dL 0.50 - 1.40 10/07/2016 [facility] ELECTROLYTES BUN 37 mg/dL 7 - 22 10/07/2016 [facility] ELECTROLYTES Glucose Lvl 144 mg/dL 70 - 99 10/07/2016 [facility] HEMATOLOGY Eosinophils 2.3 % 0.0 - 4.0 10/07/2016 [facility] HEMATOLOGY Basophils 0.4 % 0.0 - 1.0 10/07/2016 [facility] HEMATOLOGY Segs-Bands # 10.4 K/CMM 1.5 - 8.1 10/07/2016 [facility] HEMATOLOGY Monocytes # 1.0 K/CMM 0.0 - 0.8 10/07/2016 [facility] HEMATOLOGY Eosinophils # 0.3 K/CMM 0.0 - 0.5 10/07/2016 [facility] HEMATOLOGY Lymphocytes # 1.3 K/CMM 1.0 - 5.5 10/07/2016 [facility] HEMATOLOGY Lymphocytes 9.9 % 20.0 - 40.0 10/07/2016 [facility] HEMATOLOGY Monocytes 8.0 % 2.0 - 12.0 10/07/2016 [facility] HEMATOLOGY Segs 79.4 % 45.0 - 75.0 10/07/2016 [facility] HEMATOLOGY Lymphocytes # 0.8 K/CMM 1.0 - 5.5 10/06/2016 [facility] HEMATOLOGY Monocytes # 1.2 K/CMM 0.0 - 0.8 10/06/2016 [facility] HEMATOLOGY Monocytes 8.7 % 2.0 - 12.0 10/06/2016 [facility] HEMATOLOGY Lymphocytes 6.0 % 20.0 - 40.0 10/06/2016 [facility] HEMATOLOGY Segs-Bands # 12.1 K/CMM 1.5 - 8.1 10/06/2016 [facility] HEMATOLOGY Basophils 0.1 % 0.0 - 1.0 10/06/2016 [facility] HEMATOLOGY Segs 85.2 % 45.0 - 75.0 10/06/2016 [facility] CHEM PANEL B/C Ratio 20 6 - 25 10/05/2016 [facility] CHEM PANEL A/G Ratio 0.9 0.7 - 1.6 10/05/2016 [facility] CHEM PANEL Globulin 3.9 g/dL 2.7 - 4.2 10/05/2016 [facility] CHEM PANEL Total Protein 7.6 g/dL 6.4 - 8.4 10/05/2016 [facility] CHEM PANEL Albumin Lvl 3.7 g/dL 3.5 - 5.0 10/05/2016 [facility] CHEM PANEL ALT 28 unit/L 0 - 65 10/05/2016 [facility] CHEM PANEL AST 18 unit/L 0 - 37 10/05/2016 [facility] CHEM PANEL Alk Phos 59 unit/L 39 - 136 10/05/2016 [facility] CHEM PANEL Bili Total 0.4 mg/dL 0.2 - 1.3 10/05/2016 [facility] HEMATOLOGY INR 1.05 0.85 - 1.17 10/05/2016 [facility] HEMATOLOGY PTT 27.8 s 22.9 - 35.8 10/05/2016 [facility] HEMATOLOGY PT 13.9 s 12.0 - 14.7 10/05/2016 [facility] HEMATOLOGY TEG Interp Thrombelastograph results show shortened value of R. This finding is suggestive of enzymatic hypercoagulation.CPT:[id number] 10/05/2016 [facility] HEMATOLOGY G-value 6.1 K d/sc 4.5 - 11.0 10/05/2016 [facility] HEMATOLOGY Ly30 5.6 % 0.0 - 7.5 10/05/2016 [facility] HEMATOLOGY Max Amp 54.9 mm 50.0 - 70.0 10/05/2016 [facility] HEMATOLOGY Coag Index 1.4 -3.0-3.0 - 3.0 10/05/2016 [facility] HEMATOLOGY TEG Data See Note (10/05/16 6:47 AM) 10/05/2016 [facility] HEMATOLOGY Angle 69.9 degrees 53.0 - 72.0 10/05/2016 [facility] HEMATOLOGY R-time 3.4 min 5.0 - 10.0 10/05/2016 [facility] HEMATOLOGY K-time 1.5 min 1.0 - 3.0 10/05/2016 [facility] HEMATOLOGY TEG Interp Thrombelastograph results show prolonged value of R. This finding is suggestive of factor deficiency, or anticoagulants. In addition the MA is low which is suggestive of thrombocytopenia. The Ly30 is markedly high which is seen with fibrinolysis.Comment: The patient has prolonged PT and PTT values but does not have thrombocytopenia. Recommend repeat TEG with correlation with DIC screen, if clinically indicated.CPT:[id number] 09/27/2016 [facility] HEMATOLOGY G-value 3.0 K d/sc 4.5 - 11.0 09/27/2016 [facility] HEMATOLOGY Angle 55.6 degrees 53.0 - 72.0 09/27/2016 [facility] HEMATOLOGY Max Amp 37.7 mm 50.0 - 70.0 09/27/2016 [facility] HEMATOLOGY K-time 2.8 min 1.0 - 3.0 09/27/2016 [facility] HEMATOLOGY R-time 10.2 min 5.0 - 10.0 09/27/2016 [facility] HEMATOLOGY Ly30 28.9 % 0.0 - 7.5 09/27/2016 [facility] HEMATOLOGY Coag Index -6.6 -3.0-3.0 - 3.0 09/27/2016 [facility] HEMATOLOGY TEG Data See Note (09/27/16 3:25 PM) 09/27/2016 [facility] CHEM PANEL Globulin 4.0 g/dL 2.7 - 4.2 09/27/2016 [facility] CHEM PANEL B/C Ratio 16 6 - 25 09/27/2016 [facility] CHEM PANEL A/G Ratio 1.1 0.7 - 1.6 09/27/2016 [facility] CHEM PANEL Total Protein 8.5 g/dL 6.4 - 8.4 09/27/2016 [facility] CHEM PANEL ALT 42 unit/L 0 - 65 09/27/2016 [facility] CHEM PANEL Albumin Lvl 4.5 g/dL 3.5 - 5.0 09/27/2016 [facility] CHEM PANEL Bili Total 0.6 mg/dL 0.2 - 1.3 09/27/2016 [facility] CHEM PANEL Alk Phos 72 unit/L 39 - 136 09/27/2016 [facility] CHEM PANEL AST 28 unit/L 0 - 37 09/27/2016 [facility] HEMATOLOGY INR 2.36 0.85 - 1.17 09/27/2016 [facility] HEMATOLOGY PTT 42.1 s 22.9 - 35.8 09/27/2016 [facility] HEMATOLOGY PT 26.2 s 12.0 - 14.7 09/27/2016 [facility] HEMATOLOGY Basophils # 0.1 K/CMM 0.0 - 0.2 09/27/2016 [facility] HEMATOLOGY Eosinophils # 0.3 K/CMM 0.0 - 0.5 09/27/2016 [facility] HEMATOLOGY Eosinophils 3.2 % 0.0 - 4.0 09/27/2016 [facility] CHEM PANEL Magnesium Lvl 2.0 mg/dL 1.8 - 2.4 09/12/2016 [facility] CHEM PANEL eGFR 91 mL/min/1.73m2 09/12/2016 Result Comment: The eGFR is calculated using the CKD-EPI formula. In most young, healthy individuals the eGFR will be >90 mL/min/1.73m2. The eGFR declines with age. An eGFR of 60-89 may be normal in some populations, particularly the elderly, for whom the CKD-EPI formula has not been extensively validated. Use of the eGFR is not recommended in the following populations: Individuals with unstable creatinine concentrations, including patients and those with serious co-morbid conditions. Patients with extremes in muscle mass or diet. The data above are obtained from the National Kidney Disease Education Program (NKDEP) which additionally recommends that when the eGFR is used in patients with extremes of body mass index for purposes of drug dosing, the eGFR should be multiplied by the estimated BMI. [facility] CHEM PANEL Sodium Lvl 137 meq/L 135 - 145 09/12/2016 [facility] CHEM PANEL Creatinine Lvl 0.78 mg/dL 0.50 - 1.40 09/12/2016 [facility] CHEM PANEL BUN 8 mg/dL 7 - 22 09/12/2016 [facility] CHEM PANEL Glucose Lvl 60 mg/dL 70 - 99 09/12/2016 [facility] CHEM PANEL AGAP 14.9 meq/L 10.0 - 20.0 09/12/2016 [facility] CHEM PANEL Calcium Lvl 8.4 mg/dL 8.5 - 10.5 09/12/2016 [facility] CHEM PANEL Potassium Lvl 3.9 meq/L 3.5 - 5.1 09/12/2016 [facility] CHEM PANEL CO2 25 meq/L 24 - 32 09/12/2016 [facility] CHEM PANEL Chloride Lvl 101 meq/L 95 - 109 09/12/2016 [facility] CHEM PANEL Phosphorus 2.8 mg/dL 2.5 - 4.5 09/10/2016 [facility] CHEM PANEL Magnesium Lvl 1.7 mg/dL 1.8 - 2.4 09/10/2016 [facility] ELECTROLYTES Sodium Lvl 141 meq/L 135 - 145 09/10/2016 [facility] ELECTROLYTES BUN 11 mg/dL 7 - 22 09/10/2016 [facility] ELECTROLYTES Creatinine Lvl 0.77 mg/dL 0.50 - 1.40 09/10/2016 [facility] ELECTROLYTES Glucose Lvl 60 mg/dL 70 - 99 09/10/2016 [facility] ELECTROLYTES eGFR 91 mL/min/1.73m2 09/10/2016 Result Comment: The eGFR is calculated using the CKD-EPI formula. In most young, healthy individuals the eGFR will be >90 mL/min/1.73m2. The eGFR declines with age. An eGFR of 60-89 may be normal in some populations, particularly the elderly, for whom the CKD-EPI formula has not been extensively validated. Use of the eGFR is not recommended in the following populations: Individuals with unstable creatinine concentrations, including patients and those with serious co-morbid conditions. Patients with extremes in muscle mass or diet. The data above are obtained from the National Kidney Disease Education Program (NKDEP) which additionally recommends that when the eGFR is used in patients with extremes of body mass index for purposes of drug dosing, the eGFR should be multiplied by the estimated BMI. [facility] ELECTROLYTES CO2 24 meq/L 24 - 32 09/10/2016 [facility] ELECTROLYTES Calcium Lvl 7.9 mg/dL 8.5 - 10.5 09/10/2016 [facility] ELECTROLYTES Potassium Lvl 4.3 meq/L 3.5 - 5.1 09/10/2016 [facility] ELECTROLYTES Chloride Lvl 107 meq/L 95 - 109 09/10/2016 [facility] ELECTROLYTES AGAP 14.3 meq/L 10.0 - 20.0 09/10/2016 [facility] HEMATOLOGY Hct 44.5 % 42.0 - 54.0 09/10/2016 [facility] HEMATOLOGY Hgb 15.0 g/dL 14.0 - 18.0 09/10/2016 [facility] HEMATOLOGY RBC 4.99 M/CMM 4.70 - 6.10 09/10/2016 [facility] HEMATOLOGY MCH 30.0 pg 27.0 - 31.0 09/10/2016 [facility] HEMATOLOGY MCV 89.0 fL 80.0 - 94.0 09/10/2016 [facility] HEMATOLOGY Platelet 162 K/CMM 133 - 450 09/10/2016 [facility] HEMATOLOGY RDW 14.3 % 11.5 - 14.5 09/10/2016 [facility] HEMATOLOGY MCHC 33.7 g/dL 32.0 - 36.0 09/10/2016 [facility] HEMATOLOGY MPV 8.6 fL 7.4 - 10.4 09/10/2016 [facility] HEMATOLOGY WBC 9.0 K/CMM 3.7 - 10.4 09/10/2016 [facility] HEMATOLOGY Basophils # 0.1 K/CMM 0.0 - 0.2 09/10/2016 [facility] HEMATOLOGY Eosinophils # 0.5 K/CMM 0.0 - 0.5 09/10/2016 [facility] HEMATOLOGY Eosinophils 5.2 % 0.0 - 4.0 09/10/2016 [facility] HEMATOLOGY Monocytes 9.6 % 2.0 - 12.0 09/10/2016 [facility] HEMATOLOGY Lymphocytes 18.6 % 20.0 - 40.0 09/10/2016 [facility] HEMATOLOGY Segs 66.0 % 45.0 - 75.0 09/10/2016 [facility] HEMATOLOGY Monocytes # 0.9 K/CMM 0.0 - 0.8 09/10/2016 [facility] HEMATOLOGY Lymphocytes # 1.7 K/CMM 1.0 - 5.5 09/10/2016 [facility] HEMATOLOGY Segs-Bands # 5.9 K/CMM 1.5 - 8.1 09/10/2016 [facility] HEMATOLOGY Basophils 0.6 % 0.0 - 1.0 09/10/2016 [facility] PARATHYROID PROFILE Ca Norm WB 1.09 mMol/L 1.05 - 1.25 09/10/2016 [facility] PARATHYROID PROFILE Ca Ion WB 1.12 mMol/L 1.05 - 1.25 09/10/2016 [facility] Abdomen AP DX Abdomen AP DX EXAM: XR ABDOMEN 1 VIEW DATE: 09/09/2016 at 1620 hours INDICATION: Abdominal distension ADDITIONAL INFORMATION: None. COMPARISON: 09/09/2016 at 1127 hours TECHNIQUE: AP view of the abdomen. FINDINGS: Lines, tubes and hardware: Unchanged Lower thorax: Unchanged Bowel: Decreased gaseous distention of bowel. Other abdominal organs: No abnormal mass or organomegaly seen. Calcifications: No abnormal calcifications found. Bones: No acute abnormality. Extraabdominal soft tissues: Normal. IMPRESSION: 1. Improved ileus 09/09/2016 - - Read by: Titi Keene MD Dictated Date/time: 09/10/16 12:02 Electronically Signed by: Titi Keene MD 09/10/16 12:03 FINAL REPORT [facility] Abdomen 2 views DX Abdomen 2 views DX EXAM: XR ABDOMEN 3 FRONTAL VIEWS DATE: 09/09/2016 9:19 AM MOLDER INDICATION: Abdominal distension ADDITIONAL INFORMATION: None. COMPARISON: KUB 09/08/2016 at 1711 hours TECHNIQUE: Frontal views of the abdomen. FINDINGS: Lines and tubes: Redemonstrated gastric band unchanged in position. Tip of NG tube projects over the proximal gastric body with sidehole just below the GE junction. Lower thorax: Bibasilar airspace disease. Bowel: Gaseous distention of the colon. No definite small bowel dilatation. Solid organs: No abnormal mass or organomegaly seen. Calcifications: No abnormal calcifications found. Bones: Normal. IMPRESSION: 1. Nonspecific gaseous distention of the colon without definite obstruction. 09/09/2016 - - Read by: Jesús Humphries MD Dictated Date/time: 09/09/16 12:54 Electronically Signed by: Jesús Humphries MD 09/09/16 12:56 FINAL REPORT [facility] CHEM PANEL A/G Ratio 0.8 0.7 - 1.6 09/09/2016 [facility] CHEM PANEL Globulin 3.2 g/dL 2.7 - 4.2 09/09/2016 [facility] CHEM PANEL AGAP 13.0 meq/L 10.0 - 20.0 09/09/2016 [facility] CHEM PANEL B/C Ratio 16 6 - 25 09/09/2016 [facility] CHEM PANEL eGFR 90 mL/min/1.73m2 09/09/2016 Result Comment: The eGFR is calculated using the CKD-EPI formula. In most young, healthy individuals the eGFR will be >90 mL/min/1.73m2. The eGFR declines with age. An eGFR of 60-89 may be normal in some populations, particularly the elderly, for whom the CKD-EPI formula has not been extensively validated. Use of the eGFR is not recommended in the following populations: Individuals with unstable creatinine concentrations, including patients and those with serious co-morbid conditions. Patients with extremes in muscle mass or diet. The data above are obtained from the National Kidney Disease Education Program (NKDEP) which additionally recommends that when the eGFR is used in patients with extremes of body mass index for purposes of drug dosing, the eGFR should be multiplied by the estimated BMI. [facility] CHEM PANEL Sodium Lvl 140 meq/L 135 - 145 09/09/2016 [facility] CHEM PANEL Potassium Lvl 4.0 meq/L 3.5 - 5.1 09/09/2016 [facility] CHEM PANEL ALT 19 unit/L 0 - 65 09/09/2016 [facility] CHEM PANEL Creatinine Lvl 0.79 mg/dL 0.50 - 1.40 09/09/2016 [facility] CHEM PANEL Glucose Lvl 65 mg/dL 70 - 99 09/09/2016 [facility] CHEM PANEL Chloride Lvl 105 meq/L 95 - 109 09/09/2016 [facility] CHEM PANEL BUN 13 mg/dL 7 - 22 09/09/2016 [facility] CHEM PANEL Bili Total 0.9 mg/dL 0.2 - 1.3 09/09/2016 [facility] CHEM PANEL AST 16 unit/L 0 - 37 09/09/2016 [facility] CHEM PANEL Alk Phos 45 unit/L 39 - 136 09/09/2016 [facility] CHEM PANEL Calcium Lvl 8.2 mg/dL 8.5 - 10.5 09/09/2016 [facility] CHEM PANEL Total Protein 5.9 g/dL 6.4 - 8.4 09/09/2016 [facility] CHEM PANEL Albumin Lvl 2.7 g/dL 3.5 - 5.0 09/09/2016 [facility] CHEM PANEL CO2 26 meq/L 24 - 32 09/09/2016 [facility] HEMATOLOGY Hct 44.6 % 42.0 - 54.0 09/09/2016 [facility] HEMATOLOGY MCV 90.2 fL 80.0 - 94.0 09/09/2016 [facility] HEMATOLOGY MCH 29.4 pg 27.0 - 31.0 09/09/2016 [facility] HEMATOLOGY MCHC 32.6 g/dL 32.0 - 36.0 09/09/2016 [facility] HEMATOLOGY MPV 8.9 fL 7.4 - 10.4 09/09/2016 [facility] HEMATOLOGY RDW 14.4 % 11.5 - 14.5 09/09/2016 [facility] HEMATOLOGY Platelet 160 K/CMM 133 - 450 09/09/2016 [facility] HEMATOLOGY WBC 8.9 K/CMM 3.7 - 10.4 09/09/2016 [facility] HEMATOLOGY RBC 4.94 M/CMM 4.70 - 6.10 09/09/2016 [facility] HEMATOLOGY Hgb 14.5 g/dL 14.0 - 18.0 09/09/2016 [facility] HEMATOLOGY Monocytes # 0.8 K/CMM 0.0 - 0.8 09/09/2016 [facility] HEMATOLOGY Eosinophils # 0.5 K/CMM 0.0 - 0.5 09/09/2016 [facility] HEMATOLOGY Basophils # 0.1 K/CMM 0.0 - 0.2 09/09/2016 [facility] HEMATOLOGY Monocytes 8.8 % 2.0 - 12.0 09/09/2016 [facility] HEMATOLOGY Lymphocytes 17.1 % 20.0 - 40.0 09/09/2016 [facility] HEMATOLOGY Segs 68.0 % 45.0 - 75.0 09/09/2016 [facility] HEMATOLOGY Lymphocytes # 1.5 K/CMM 1.0 - 5.5 09/09/2016 [facility] HEMATOLOGY Segs-Bands # 6.0 K/CMM 1.5 - 8.1 09/09/2016 [facility] HEMATOLOGY Basophils 0.7 % 0.0 - 1.0 09/09/2016 [facility] HEMATOLOGY Eosinophils 5.4 % 0.0 - 4.0 09/09/2016 [facility] Abdomen AP DX Abdomen AP DX EXAM: XR ABDOMEN 1 FRONTAL VIEW DATE: 09/08/2016 4:44 PM MOLDER INDICATION: Tube placement/removal/reposition ADDITIONAL INFORMATION: None. COMPARISON: KUB 09/08/2016 at 0832 hours TECHNIQUE: Single frontal view of the abdomen. FINDINGS: Lines and tubes: Stable position of gastric band. NG tube with distal tip projecting over the gastric fundus with sidehole below the GE junction. Lower thorax: Small bilateral pleural effusions with associated atelectasis/consolidation. Bowel: Nonobstructive bowel gas pattern. Solid organs: No abnormal mass or organomegaly seen. Calcifications: No abnormal calcifications found. Bones: Unchanged. IMPRESSION: 1. NG tube as detailed. 09/08/2016 - - Read by: Jesús Humphries MD Dictated Date/time: 09/08/16 17:30 Electronically Signed by: Jesús Humphries MD 09/08/16 17:32 FINAL REPORT [facility] CHEM PANEL Phosphorus 2.3 mg/dL 2.5 - 4.5 09/08/2016 [facility] CHEM PANEL Magnesium Lvl 1.7 mg/dL 1.8 - 2.4 09/08/2016 [facility] CHEM PANEL A/G Ratio 0.9 0.7 - 1.6 09/08/2016 [facility] CHEM PANEL Globulin 3.5 g/dL 2.7 - 4.2 09/08/2016 [facility] CHEM PANEL B/C Ratio 16 6 - 25 09/08/2016 [facility] CHEM PANEL Total Protein 6.5 g/dL 6.4 - 8.4 09/08/2016 [facility] CHEM PANEL Albumin Lvl 3.0 g/dL 3.5 - 5.0 09/08/2016 [facility] CHEM PANEL Bili Total 1.2 mg/dL 0.2 - 1.3 09/08/2016 [facility] CHEM PANEL Alk Phos 55 unit/L 39 - 136 09/08/2016 [facility] CHEM PANEL ALT 27 unit/L 0 - 65 09/08/2016 [facility] CHEM PANEL AST 19 unit/L 0 - 37 09/08/2016 [facility] HEMATOLOGY Monocytes # 1.0 K/CMM 0.0 - 0.8 09/08/2016 [facility] HEMATOLOGY Eosinophils # 0.4 K/CMM 0.0 - 0.5 09/08/2016 [facility] HEMATOLOGY Segs-Bands # 8.9 K/CMM 1.5 - 8.1 09/08/2016 [facility] HEMATOLOGY Basophils 0.3 % 0.0 - 1.0 09/08/2016 [facility] HEMATOLOGY Lymphocytes # 1.1 K/CMM 1.0 - 5.5 09/08/2016 [facility] HEMATOLOGY Eosinophils 3.2 % 0.0 - 4.0 09/08/2016 [facility] HEMATOLOGY Lymphocytes 9.6 % 20.0 - 40.0 09/08/2016 [facility] HEMATOLOGY Segs 78.1 % 45.0 - 75.0 09/08/2016 [facility] HEMATOLOGY Monocytes 8.8 % 2.0 - 12.0 09/08/2016 [facility] HEMATOLOGY Platelet 168 K/CMM 133 - 450 09/08/2016 [facility] HEMATOLOGY MPV 8.8 fL 7.4 - 10.4 09/08/2016 [facility] HEMATOLOGY RBC 5.35 M/CMM 4.70 - 6.10 09/08/2016 [facility] HEMATOLOGY MCV 89.8 fL 80.0 - 94.0 09/08/2016 [facility] HEMATOLOGY RDW 14.6 % 11.5 - 14.5 09/08/2016 [facility] HEMATOLOGY MCH 29.4 pg 27.0 - 31.0 09/08/2016 [facility] HEMATOLOGY MCHC 32.7 g/dL 32.0 - 36.0 09/08/2016 [facility] HEMATOLOGY Hct 48.1 % 42.0 - 54.0 09/08/2016 [facility] HEMATOLOGY WBC 11.4 K/CMM 3.7 - 10.4 09/08/2016 [facility] HEMATOLOGY Hgb 15.7 g/dL 14.0 - 18.0 09/08/2016 [facility] Abdomen 2 views DX Abdomen 2 views DX EXAM: XR ABDOMEN 3 FRONTAL VIEWS DATE: 09/08/2016 7:16 AM MOLDER INDICATION: Abdominal distension ADDITIONAL INFORMATION: None. COMPARISON: CT abdomen pelvis 09/07/2016 TECHNIQUE: Frontal views of the abdomen. FINDINGS: Lines and tubes: Gastric band appears in satisfactory position with injection port overlying the right lower quadrant. NG tube with distal tip projecting over the proximal gastric body and sidehole at the GE junction. Lower thorax: Small bilateral pleural effusions with associated atelectasis/consolidation. Bowel: Nonspecific air-fluid levels in the upright image. No definite free air under the bilateral hemidiaphragms. Mildly prominent dilatation of small bowel loops extending into the ventral hernia better seen on prior CT exam. Mild gaseous distention of large bowel loops. No distal colonic dilatation. Small amount of rectal gas. Solid organs: No abnormal mass or organomegaly seen. Calcifications: Stable in appearance. Bones: Normal. IMPRESSION: 1. Findings suggestive of partial small bowel obstruction, better seen on prior CT exam with suspected transition point within the inferior ventral hernia. Recommend continue follow-up. 09/08/2016 - - Read by: Jesús Humprhies MD Dictated Date/time: 09/08/16 09:17 Electronically Signed by: Jesús Humphries MD 09/08/16 09:25 FINAL REPORT [facility] HEMATOLOGY Basophils # 0.1 K/CMM 0.0 - 0.2 09/07/2016 [facility] Vital Signs Vital Sign Value Date Comments Source Systolic (mm Hg) 128 09/06/2018 [facility] Diastolic (mm Hg) 77 09/06/2018 [facility] Respitory Rate 18 09/06/2018 [facility] Heart Rate 79 09/06/2018 [facility] Temperature Oral (F) 97.6 F 09/06/2018 [facility] Respitory Rate 18 09/06/2018 [facility] Systolic (mm Hg) 114 09/06/2018 [facility] Diastolic (mm Hg) 65 09/06/2018 [facility] Temperature Oral (F) 97.8 F 09/06/2018 [facility] Heart Rate 80 09/06/2018 [facility] Heart Rate 76 09/06/2018 [facility] Systolic (mm Hg) 126 09/06/2018 [facility] Diastolic (mm Hg) 82 09/06/2018 [facility] Temperature Oral (F) 98.6 F 09/06/2018 [facility] Height 162.56 cm 09/04/2018 [facility] Weight 105.966 09/04/2018 [facility] BMI Calculated 40.1 09/04/2018 [facility] Heart Rate 71 08/30/2017 [facility] Temperature Oral (F) 97.6 F 08/30/2017 [facility] Weight 96.364 08/30/2017 [facility] BMI Calculated 34.29 08/30/2017 [facility] Height 167.64 cm 08/30/2017 [facility] Systolic (mm Hg) 180 08/30/2017 [facility] Diastolic (mm Hg) 102 08/30/2017 [facility] Respitory Rate 21 08/14/2017 [facility] Systolic (mm Hg) 148 08/14/2017 [facility] Diastolic (mm Hg) 69 08/14/2017 [facility] Respitory Rate 21 08/14/2017 [facility] Systolic (mm Hg) 159 08/14/2017 [facility] Diastolic (mm Hg) 72 08/14/2017 [facility] Systolic (mm Hg) 150 08/14/2017 [facility] Diastolic (mm Hg) 77 08/14/2017 [facility] Respitory Rate 19 08/14/2017 [facility] Temperature Oral (F) 98.3 F 08/14/2017 [facility] BMI Calculated 35.58 08/14/2017 [facility] Weight 100 08/14/2017 [facility] Height 167.64 cm 08/14/2017 [facility] Temperature Oral (F) 97.6 F 08/13/2017 [facility] Temperature Oral (F) 98.4 F 08/13/2017 [facility] Heart Rate 76 08/13/2017 [facility] Weight 90.909 02/16/2017 [facility] BMI Calculated 32.35 02/16/2017 [facility] Height 167.64 cm 02/16/2017 [facility] Respitory Rate 15 02/08/2017 [facility] Systolic (mm Hg) 133 02/08/2017 [facility] Diastolic (mm Hg) 74 02/08/2017 [facility] Respitory Rate 23 02/08/2017 [facility] Systolic (mm Hg) 130 02/08/2017 [facility] Diastolic (mm Hg) 68 02/08/2017 [facility] Systolic (mm Hg) 127 02/08/2017 [facility] Diastolic (mm Hg) 69 02/08/2017 [facility] Respitory Rate 17 02/08/2017 [facility] Weight 90.909 02/08/2017 [facility] BMI Calculated 32.35 02/08/2017 [facility] Height 167.64 cm 02/08/2017 [facility] Systolic (mm Hg) 136 10/09/2016 [facility] Diastolic (mm Hg) 74 10/09/2016 [facility] Respitory Rate 18 10/09/2016 [facility] Heart Rate 74 10/09/2016 [facility] Temperature Oral (F) 98.0 F 10/09/2016 [facility] Temperature Oral (F) 97.6 F 10/09/2016 [facility] Respitory Rate 18 10/09/2016 [facility] Systolic (mm Hg) 131 10/09/2016 [facility] Diastolic (mm Hg) 73 10/09/2016 [facility] Heart Rate 71 10/09/2016 [facility] Heart Rate 70 10/09/2016 [facility] Temperature Oral (F) 98.0 F 10/09/2016 [facility] Systolic (mm Hg) 150 10/09/2016 [facility] Diastolic (mm Hg) 78 10/09/2016 [facility] Respitory Rate 18 10/09/2016 [facility] Height 167.64 cm 10/06/2016 [facility] BMI Calculated 29.92 10/06/2016 [facility] Weight 84.091 10/06/2016 [facility] Weight 84.091 10/05/2016 [facility] BMI Calculated 29.92 10/05/2016 [facility] Height 167.64 cm 10/05/2016 [facility] Height 167.64 cm 09/27/2016 [facility] Weight 81.364 09/27/2016 [facility] BMI Calculated 28.95 09/27/2016 [facility] Temperature Oral (F) 98.5 F 09/12/2016 [facility] Systolic (mm Hg) 135 09/12/2016 [facility] Diastolic (mm Hg) 74 09/12/2016 [facility] Respitory Rate 16 09/12/2016 [facility] Heart Rate 64 09/12/2016 [facility] Respitory Rate 16 09/12/2016 [facility] Heart Rate 58 09/12/2016 [facility] Temperature Oral (F) 98.4 F 09/12/2016 [facility] Systolic (mm Hg) 156 09/12/2016 [facility] Diastolic (mm Hg) 69 09/12/2016 [facility] Temperature Oral (F) 97.9 F 09/12/2016 [facility] Heart Rate 57 09/12/2016 [facility] Respitory Rate 18 09/12/2016 [facility] Systolic (mm Hg) 147 09/12/2016 [facility] Diastolic (mm Hg) 74 09/12/2016 [facility] BMI Calculated 29.92 09/07/2016 [facility] Height 167.64 cm 09/07/2016 [facility] Weight 84.091 09/07/2016 [facility] Encounters Location Location Details Encounter Type Encounter Number Reason For Visit Attending Provider ADM Date DC Date Status Source [facility] Inpatient [id number] Javan Rivero 09/07/2016 09/12/2016 [facility] Inpatient [id number] Fabien Siddiqui 10/05/2016 10/09/2016 [facility] Outpatient [id number] TRACY ARCE M.D. 01/10/2017 Active [facility] [place] [facility] Diag Services [id number] Tracy Arce 01/17/2017 01/18/2017 [facility] [place] Outpatient [id number] TRACY ARCE M.D. 01/25/2017 Active [facility] Bedded Outpatient [id number] Fabien Siddiqui 02/08/2017 02/08/2017 [facility] Outpatient [id number] NISA QUIROS 02/16/2017 Active [facility] Bedded Outpatient [id number] Fabien Siddiqui 02/16/2017 02/16/2017 [facility] Outpatient [id number] TRACY ARCE M.D. 02/28/2017 [facility] Outpatient [id number] NISA QUIROS 03/21/2017 [facility] Neurology [facility] Phone Message [id number] 07/30/2017 08/01/2017 [facility] Neuro [facility] Neurosurgery [facility] Phone Message [id number] 08/02/2017 08/04/2017 [facility] Neuro [facility] Inpatient [id number] Justo Spicer 08/13/2017 08/14/2017 [facility] MNA Neurosurgery [facility] Phone Message [id number] 08/15/2017 08/17/2017 [facility] Neuro [facility] Neurosurgery [facility] Phone Message [id number] 08/29/2017 08/31/2017 [facility] Neuro Outpatient [id number] [facility] 08/30/2017 Active [facility] Sp[facility] Outpatient [id number] Chaitanya Camarena 08/30/2017 08/31/2017 [facility] Outpatient Imaging - [place] Out[facility] Diag Services [id number] Brad Alexeymartine 08/30/2017 08/31/2017 [facility] [place] [facility] Wound Care [id number] Kasandra Fang 08/07/2018 09/06/2018 [facility] Inpatient [id number] Iman Acharya 09/04/2018 09/06/2018 [facility] Procedures Procedure Code Date Perfomer Comments Source Image-guided fluid collection drainage by catheter (eg, abscess, hematoma, seroma, lymphocele, cyst); peritoneal or retroperitoneal, percutaneous 06835 02/16/2017 [facility] Hernia repair [id number] 12/15/2016 [facility] Neuro Hernia repair [id number] 12/15/2016 [facility] Hernia repair [id number] 12/15/2016 [facility] [place] Hernia repair [id number] 12/15/2016 [facility] Hernia repair [id number] 10/05/2016 [facility] Neuro Hernia repair [id number] 10/05/2016 [facility] Hernia repair [id number] 10/05/2016 [facility] [place] Hernia repair [id number] 10/05/2016 [facility] Cataract surgery [id number] 11/14/2013 [facility] Neuro Cataract surgery [id number] 11/14/2013 [facility] Cataract surgery [id number] 11/14/2013 [facility] [place] Cataract surgery [id number] 11/14/2013 [facility] Knee joint operation [id number] 11/14/2012 [facility] Neuro Knee joint operation [id number] 11/14/2012 [facility] Knee joint operation [id number] 11/14/2012 [facility] [place] Knee joint operation [id number] 11/14/2012 [facility] Bariatric operative procedure [id number] 10/13/2002 [facility] Neuro Bariatric operative procedure [id number] 10/13/2002 [facility] Bariatric operative procedure [id number] 10/13/2002 [facility] [place] Bariatric operative procedure [id number] 10/13/2002 [facility] Colostomy [id number] 09/14/2001 [facility] [id number] 09/14/2001 [facility] Colostomy [id number] 09/14/2001 [facility] [place] Colostomy [id number] 09/14/2001 [facility] operative procedure<sup>1</sup> [id number] [facility] Col[facility] [id number] [facility] Procedure<sup>2</sup> [id number] col[facility] Procedure<sup>3</sup> [id number] colon perforation required hospitalization [facility] Neuro Bariatric operative procedure<sup>1</sup> 279304823 lap band [facility] Colostomy [id number] [facility] Procedure<sup>2</sup> 37237886 colostomy take down [facility] Procedure<sup>3</sup> 69359532 colon perforation required hospitalization [facility] Bariatric operative procedure<sup>1</sup> [id number] lap band [facility] [place] Colostomy [id number] [facility] [place] Procedure<sup>2</sup> 41077539 colostomy take down [facility] [place] Procedure<sup>3</sup> 67670303 colon perforation required hospitalization [facility] [place] Bariatric operative procedure<sup>1</sup> [id number] lap band [facility] Col[facility] [id number] [facility] Procedure<sup>2</sup> 86410821 colostomy take down [facility] Procedure<sup>3</sup> 61959439 colon perforation required hospitalization [facility]
--- OUTSIDE RECORDS SUMMARY | 2018-10-04 04:21 | XMS REPORT | Summary of Care ---
Author Author [facility] Organization [facility] Address Unknown Phone Unavailable Encounter LAUREN Renee(GERARDO) [id number] Date(s): 09/07/16 - 09/12/16 [facility] [address] [employer] provided by [employer] [facility] [employer] [facility] [employer] [place] [address]- Discharge Disposition: Home or Self Care Attending Physician: Bart Zelaya MD Admitting Physician: Bart Zelaya MD Referring Physician: Javan Rivero MD Vital Signs 1 2 3 Most recent to oldest [Reference Range]: 167.64 cm (09/07/16 10:24 AM) Height 98.5 DegF (09/12/16 12:04 PM) 98.4 DegF (09/12/16 8:10 AM) 97.9 DegF (09/12/16 4:51 AM) Temperature Oral [96.4-99.1 DegF] 135/74 mmHg (09/12/16 12:04 PM) 156/69 mmHg *HI* (09/12/16 8:10 AM) 147/74 mmHg *HI* (09/12/16 4:51 AM) Blood Pressure [90-140/60-90 mmHg] 16 BRMIN (09/12/16 12:04 PM) 16 BRMIN (09/12/16 8:10 AM) 18 BRMIN (09/12/16 4:51 AM) Respiratory Rate [14-20 BRMIN] 64 bpm (09/12/16 12:04 PM) 58 bpm *LOW* (09/12/16 8:10 AM) 57 bpm *LOW* (09/12/16 4:51 AM) Peripheral Pulse Rate [60-100 bpm] 84.091 kg (09/07/16 10:24 AM) Weight 29.92 m2 (09/07/16 10:24 AM) Body Mass Index Problem List No data available for this section Allergies, Adverse Reactions, Alerts Substance Reaction Severity Status NKDA Active Medications AMIODarone 200 mg, 1 tab, Route: PO, Drug form: TAB, Daily, Dosing Weight 84.091, kg, Start date: 09/09/16 15:00:00 ROLLER MACHINE OPERATOR, Duration: 30 day, Stop date: 10/09/16 9:00:00 ROLLER MACHINE OPERATOR Notes: (Same as: Cordarone) Start Date: 09/09/16 Stop Date: 09/12/16 Status: Discontinued AMIODarone 200 mg oral tablet 200 mg=1 tab, PO, Daily, # 90 tab, 3 Refill(s) Start Date: 09/07/16 Status: Ordered amLODIPine 2.5 mg, 1 tab, Route: PO, Drug form: TAB, Daily, Dosing Weight 84.091, kg, Start date: 09/11/16 9:00:00 ROLLER MACHINE OPERATOR, Duration: 30 day, Stop date: 10/10/16 9:00:00 ROLLER MACHINE OPERATOR Notes: (Same as: Norvasc) Start Date: 09/11/16 Stop Date: 09/12/16 Status: Discontinued Chloraseptic 1.4% spray 1 spray, Route: TOP, TID, Drug form: SPRY, PRN Sore Throat, Start date: 09/08/16 7:44:00 ROLLER MACHINE OPERATOR, Duration: 30 day, Stop date: 10/08/16 7:43:00 ROLLER MACHINE OPERATOR Notes: Chloraseptic [place](Same as: Chloraseptic, Sore Throat [place])WASTE: F/P - Black; E - Municipal Trash Bin Start Date: 09/08/16 Stop Date: 09/12/16 Status: Discontinued Dilaudid 0.2 mg, 0.1 mL, Route: IVP, Drug form: INJ, Q3H, Dosing Weight 138.636, kg, PRN Pain Score 7-10, Start date: 09/07/16 9:16:00 ROLLER MACHINE OPERATOR, Duration: 30 day, Stop date: 10/07/16 9:15:00 ROLLER MACHINE OPERATOR Notes: Same as Dilaudid Start Date: 09/07/16 Stop Date: 09/12/16 Status: Discontinued diltiazem 120 mg, 1 cap, Route: PO, Drug form: ERCAP, Daily, Dosing Weight 84.091, kg, Sta rt date: 09/09/16 15:30:00 ROLLER MACHINE OPERATOR, Duration: 30 day, Stop date: 10/09/16 9:00:00 CS T Notes: (Same as: Cardizem CD) Do Not Crush Before meals. Start Date: 09/09/16 Stop Date: 09/10/16 Status: Discontinued diltiazem 120 mg/24 hours oral capsule, extended release 120 mg=1 cap, PO, Daily, # 90 cap, 0 Refill(s) Start Date: 09/07/16 Status: Ordered furosemide 40 mg oral tablet 40 mg=1 tab, PO, Daily Start Date: 09/07/16 Status: Ordered Habitrol 14 mg, 1 patch, Route: TOP, Drug form: ERFILM, Daily, Start date: 09/12/16 9:00: 00 ROLLER MACHINE OPERATOR, Duration: 30 day, Stop date: 10/11/16 9:00:00 ROLLER MACHINE OPERATOR Notes: (Same as: Habitrol)"Remove old patch before application of new patch"WAST E: F/P - P Waste Black; E - P Waste Black Start Date: 09/12/16 Stop Date: 09/12/16 Status: Discontinued hydrALAZINE 10 mg, 0.5 mL, Route: IV, Drug form: INJ, Q6H, Dosing Weight 84.091, kg, PRN Hyp ertension, SBP>160mmHg, Start date: 09/09/16 0:08:00 ROLLER MACHINE OPERATOR, Duration: 30 day, Stop date: 10/09/16 0:07:00 ROLLER MACHINE OPERATOR Notes: (Same as: Apresoline)Push over 5 minutes Start Date: 09/09/16 Stop Date: 09/12/16 Status: Discontinued Lactated Ringers 1,000 mL 1,000 mL, Rate: 100 ml/hr, Infuse over: 10 hr, Route: IV, Dosing Weight 138.636 kg, Total Volume: 1,000, Start date: 09/07/16 9:15:00 ROLLER MACHINE OPERATOR, Stop date: 10/07/16 9 :14:00 ROLLER MACHINE OPERATOR Start Date: 09/07/16 Stop Date: 09/10/16 Status: Discontinued levothyroxine 75 microgram, 1 tab, Route: PO, Drug form: TAB, Daily, Dosing Weight 84.091, kg, Start date: 09/10/16 7:00:00 ROLLER MACHINE OPERATOR, Duration: 30 day, Stop date: 10/09/16 7:00:00 ROLLER MACHINE OPERATOR Notes: Take 1 hour before or 2 hours after meal; Enteral feeds may interefere wi th the absorption of this medication. (Same as:Synthroid, Levothroid) Start Date: 09/10/16 Stop Date: 09/12/16 Status: Discontinued levothyroxine 75 mcg (0.075 mg) oral tablet 75 microgram=1 tab, PO, Daily, # 30 tab, 0 Refill(s) Start Date: 09/07/16 Status: Ordered liothyronine 50 mcg oral tablet 50 microgram=1 tab, PO, Daily, # 30 tab, 0 Refill(s) Start Date: 09/07/16 Status: Ordered Lovenox 40 mg, 0.4 mL, Route: SUB-Q, Drug form: INJ, Q24H, Dosing Weight 84.091, kg, Sta rt date: 09/07/16 18:00:00 ROLLER MACHINE OPERATOR, Duration: 30 day, Stop date: 10/06/16 18:00:[address] Notes: (Same as: Lovenox) Start Date: 09/07/16 Stop Date: 09/12/16 Status: Discontinued magnesium sulfate 2gm / NS 50ml (premixed) 2 gm, 50 mL, Route: IVPB, Drug form: INJ, ONCE, Dosing Weight 84.091, kg, Start date: 09/11/16 1:15:00 ROLLER MACHINE OPERATOR, Duration: 2 hr, Stop date: 09/11/16 1:15:00 ROLLER MACHINE OPERATOR Notes: WASTE: F/P - Sink; E - Municipal Trash Bin Start Date: 09/11/16 Stop Date: 09/11/16 Status: Completed metoprolol tartrate 25 mg, 1 tab, Route: PO, Drug form: TAB, Q12H, Dosing Weight 84.091, kg, Start d ate: 09/09/16 21:00:00 ROLLER MACHINE OPERATOR, Duration: 30 day, Stop date: 10/09/16 9:00:00 ROLLER MACHINE OPERATOR Notes: (Same as: Lopressor) Start Date: 09/09/16 Stop Date: 09/12/16 Status: Discontinued metoprolol tartrate 25 mg oral tablet 25 mg=1 tab, PO, BID, # 60 tab, 0 Refill(s) Start Date: 09/07/16 Status: Ordered multivitamin 1 tab, PO, Daily, 0 Refill(s) Start Date: 09/07/16 Status: Ordered nicotine 21 mg, 1 patch, Route: TOP, Drug form: ERFILM, Daily, Dosing Weight 84.091, kg, Start date: 09/08/16 15:50:00 ROLLER MACHINE OPERATOR, Duration: 30 day, Stop date: 10/08/16 9:00:00 ROLLER MACHINE OPERATOR Notes: (Same as: Habitrol)"Remove old patch before application of new patch"WAST E: F/P - P Waste Black; E - P Waste Black Start Date: 09/08/16 Stop Date: 09/11/16 Status: Discontinued NS (Bolus) IV 500 mL, 500 ml/hr, Infuse Over: 1 hr, Route: IV, 500, Drug form: INJ, ONCE, Prio rity: STAT, Dosing Weight 84.091 kg, Start date: 09/07/16 16:00:00 ROLLER MACHINE OPERATOR, Duration : 1 doses or times, Stop date: 09/07/16 16:00:00 ROLLER MACHINE OPERATOR Start Date: 09/07/16 Stop Date: 09/07/16 Status: Completed omeprazole 20 mg oral delayed release capsule 20 mg=1 cap, PO, Daily, # 30 cap, 1 Refill(s) Start Date: 09/07/16 Status: Ordered ondansetron 4 mg, 2 mL, Route: IVP, Drug form: INJ, Q12H, Dosing Weight 138.636, kg, PRN [place] sea & Vomiting, Start date: 09/07/16 9:15:00 ROLLER MACHINE OPERATOR, Duration: 30 day, Stop date: 10/07/16 9:14:00 ROLLER MACHINE OPERATOR Notes: (Same as: Agapito) MEDICATION WASTE Product Size: 4 mgProduct Was mary kate: ___ mg Start Date: 09/07/16 Stop Date: 09/12/16 Status: Discontinued Plasma-Lyte A PH-7.4 1000 ml INJ 1,000 mL 1,000 mL, Rate: 75 ml/hr, Infuse over: 13.3 hr, Route: IV, Dosing Weight 84.091 kg, Total Volume: 1,000, Start date: 09/10/16 9:49:00 ROLLER MACHINE OPERATOR, Duration: 30 day, Sto p date: 10/10/16 9:48:00 ROLLER MACHINE OPERATOR Notes: WASTE: F/P - Sink; E - Municipal Trash Bin Start Date: 09/10/16 Stop Date: 09/12/16 Status: Discontinued promethazine 12.5 mg, 0.5 mL, Route: IM, Drug form: INJ, Q4H, Dosing Weight 138.636, kg, PRN Nausea & Vomiting, Start date: 09/07/16 9:15:00 ROLLER MACHINE OPERATOR, Duration: 30 day, Stop date: 10/07/16 9:14:00 ROLLER MACHINE OPERATOR Notes: Do not give IV push. (Same as: Phenergan) Start Date: 09/07/16 Stop Date: 09/12/16 Status: Discontinued Protonix 40 mg, Route: IVP, Drug form: INJ, Daily, Dosing Weight 84.091, kg, Patient is N PO, Start date: 09/07/16 17:12:00 ROLLER MACHINE OPERATOR, Duration: 30 day, Stop date: 10/07/16 9:0 0:00 ROLLER MACHINE OPERATOR Notes: For IV push reconstitute with 10 ml 0.9% sodium chloride and push over 2 minutes. (Same as: Protonix) Start Date: 09/07/16 Stop Date: 09/12/16 Status: Discontinued remove patch 1 patch, Route: TOP, Drug form: ERFILM, Daily, Start date: 09/09/16 9:00:00 ROLLER MACHINE OPERATOR, Duration: 30 day, Stop date: 10/08/16 9:00:00 ROLLER MACHINE OPERATOR Notes: Remove old patch before application of new patch.WASTE: F/P - P Waste [place] ck; E - P Waste Black Start Date: 09/09/16 Stop Date: 09/12/16 Status: Discontinued sertraline 50 mg, 1 tab, Route: PO, Drug form: TAB, Daily, Dosing Weight 84.091, kg, Start date: 09/09/16 15:30:00 ROLLER MACHINE OPERATOR, Duration: 30 day, Stop date: 10/09/16 9:00:00 ROLLER MACHINE OPERATOR Notes: (Same as: Zoloft) Start Date: 09/09/16 Stop Date: 09/12/16 Status: Discontinued sertraline 50 mg oral tablet 50 mg=1 tab, PO, Daily, # 30 tab, 1 Refill(s) Start Date: 09/07/16 Status: Ordered testosterone 0 Refill(s) Start Date: 09/07/16 Status: Ordered tramadol 50 mg oral tablet 50 mg=1 tab, PO, Q4H, X 3 day, # 18 tab, 0 Refill(s) Start Date: 09/12/16 Stop Date: 09/12/16 Status: Discontinued tramadol 50 mg oral tablet 50 mg=1 tab, PO, Q4H, X 3 day, # 18 tab, 0 Refill(s) Start Date: 09/12/16 Stop Date: 09/15/16 Status: Ordered Tylenol with Codeine #3 oral tablet 1 - 2 tab, PO, Q6H, PRN Pain, X 4 day, # 32 tab, 0 Refill(s) Start Date: 09/12/16 Stop Date: 09/12/16 Status: Discontinued Tylenol with Codeine #3 oral tablet 1 - 2 tab, PO, Q6H, PRN Pain, X 4 day, # 32 tab, 0 Refill(s) Start Date: 09/12/16 Stop Date: 09/16/16 Status: Ordered Xarelto 20 mg oral tablet 20 mg=1 tab, PO, QPM, # 30 tab, 3 Refill(s) Start Date: 09/07/16 Stop Date: 09/12/16 Status: Discontinued Xarelto 20 mg oral tablet 20 mg=1 tab, PO, QPM, # 30 tab, 3 Refill(s) Start Date: 09/12/16 Status: Ordered Zofran ODT 4 mg oral tablet, disintegrating 4 mg=1 tab, PO, BID, PRN Nausea and Vomiting, Dissolve tab under tongue, X 5 day , # 10 tab, 0 Refill(s) Start Date: 09/12/16 Stop Date: 09/12/16 Status: Discontinued Zofran ODT 4 mg oral tablet, disintegrating 4 mg=1 tab, PO, BID, PRN Nausea and Vomiting, Dissolve tab under tongue, X 5 day , # 10 tab, 0 Refill(s) Start Date: 09/12/16 Stop Date: 09/17/16 Status: Ordered Results ELECTROLYTES 1 2 3 Most recent to oldest [Reference Range]: 137 mEq/L (09/12/16 4:32 AM) 141 mEq/L (09/10/16 5:07 AM) 140 mEq/L (09/09/16 3:33 AM) Sodium Lvl [135-145 mEq/L] 3.9 mEq/L (09/12/16 4:32 AM) 4.3 mEq/L (09/10/16 5:07 AM) 4.0 mEq/L (09/09/16 3:33 AM) Potassium Lvl [3.5-5.1 mEq/L] 101 mEq/L (09/12/16 4:32 AM) 107 mEq/L (09/10/16 5:07 AM) 105 mEq/L (09/09/16 3:33 AM) Chloride Lvl [95-109 mEq/L] 25 mEq/L (09/12/16 4:32 AM) 24 mEq/L (09/10/16 5:07 AM) 26 mEq/L (09/09/16 3:33 AM) CO2 [24-32 mEq/L] 14.9 mEq/L (09/12/16 4:32 AM) 14.3 mEq/L (09/10/16 5:07 AM) 13.0 mEq/L (09/09/16 3:33 AM) AGAP [10.0-20.0 mEq/L] CHEM PANEL 1 2 3 Most recent to oldest [Reference Range]: 0.78 mg/dL (09/12/16 4:32 AM) 0.77 mg/dL (09/10/16 5:07 AM) 0.79 mg/dL (09/09/16 3:33 AM) Creatinine Lvl [0.50-1.40 mg/dL] 91 mL/min/1.73m2 1 *NA* (09/12/16 4:32 AM) 91 mL/min/1.73m2 2 *NA* (09/10/16 5:07 AM) 90 mL/min/1.73m2 3 *NA* (09/09/16 3:33 AM) eGFR 8 mg/dL (09/12/16 4:32 AM) 11 mg/dL (09/10/16 5:07 AM) 13 mg/dL (09/09/16 3:33 AM) BUN [7-22 mg/dL] 16 (09/09/16 3:33 AM) 16 (09/08/16 4:23 AM) B/C Ratio [6-25] 60 mg/dL *LOW* (09/12/16 4:32 AM) 60 mg/dL *LOW* (09/10/16 5:07 AM) 65 mg/dL *LOW* (09/09/16 3:33 AM) Glucose Lvl [70-99 mg/dL] 5.9 g/dL *LOW* (09/09/16 3:33 AM) 6.5 g/dL (09/08/16 4:23 AM) Total Protein [6.4-8.4 g/dL] 2.7 g/dL *LOW* (09/09/16 3:33 AM) 3.0 g/dL *LOW* (09/08/16 4:23 AM) Albumin Lvl [3.5-5.0 g/dL] 3.2 g/dL (09/09/16 3:33 AM) 3.5 g/dL (09/08/16 4:23 AM) Globulin [2.7-4.2 g/dL] 0.8 (09/09/16 3:33 AM) 0.9 (09/08/16 4:23 AM) A/G Ratio [0.7-1.6] 8.4 mg/dL *LOW* (09/12/16 4:32 AM) 7.9 mg/dL *LOW* (09/10/16 5:07 AM) 8.2 mg/dL *LOW* (09/09/16 3:33 AM) Calcium Lvl [8.5-10.5 mg/dL] 2.8 mg/dL (09/10/16 5:07 AM) 2.3 mg/dL *LOW* (09/08/16 4:23 AM) Phosphorus [2.5-4.5 mg/dL] 2.0 mg/dL (09/12/16 4:32 AM) 1.7 mg/dL *LOW* (09/10/16 5:07 AM) 1.7 mg/dL *LOW* (09/08/16 4:23 AM) Magnesium Lvl [1.8-2.4 mg/dL] 19 unit/L (09/09/16 3:33 AM) 27 unit/L (09/08/16 4:23 AM) ALT [0-65 unit/L] 16 unit/L (09/09/16 3:33 AM) 19 unit/L (09/08/16 4:23 AM) AST [0-37 unit/L] 45 unit/L (09/09/16 3:33 AM) 55 unit/L (09/08/16 4:23 AM) Alk Phos [39-136 unit/L] 0.9 mg/dL (09/09/16 3:33 AM) 1.2 mg/dL (09/08/16 4:23 AM) Bili Total [0.2-1.3 mg/dL] 1Result Comment: The eGFR is calculated using the [...] from the National Kidney Disease Education Program ( NKDEP) which additionally recommends that when the eGFR is used in patients with extremes of body mass index for purposes of drug dosing, the eGFR should be mul tiplied by the estimated BMI. 2Result Comment: The eGFR is calculated using the [...] from the National Kidney Disease Education Program ( NKDEP) which additionally recommends that when the eGFR is used in patients with extremes of body mass index for purposes of drug dosing, the eGFR should be mul tiplied by the estimated BMI. 3Result Comment: The eGFR is calculated using the [...] from the National Kidney Disease Education Program ( NKDEP) which additionally recommends that when the eGFR is used in patients with extremes of body mass index for purposes of drug dosing, the eGFR should be mul tiplied by the estimated BMI. PARATHYROID PROFILE 1 2 3 Most recent to oldest [Reference Range]: 1.12 mMol/L (09/10/16 5:07 AM) Ca Ion WB [1.05-1.25 mMol/L] 1.09 mMol/L (09/10/16 5:07 AM) Ca Norm WB [1.05-1.25 mMol/L] HEMATOLOGY 1 2 3 Most recent to oldest [Reference Range]: 9.0 K/CMM (09/10/16 5:07 AM) 8.9 K/CMM (09/09/16 3:33 AM) 11.4 K/CMM *HI* (09/08/16 4:23 AM) WBC [3.7-10.4 K/CMM] 4.99 M/CMM (09/10/16 5:07 AM) 4.94 M/CMM (09/09/16 3:33 AM) 5.35 M/CMM (09/08/16 4:23 AM) RBC [4.70-6.10 M/CMM] 15.0 g/dL (09/10/16 5:07 AM) 14.5 g/dL (09/09/16 3:33 AM) 15.7 g/dL (09/08/16 4:23 AM) Hgb [14.0-18.0 g/dL] 44.5 % (09/10/16 5:07 AM) 44.6 % (09/09/16 3:33 AM) 48.1 % (09/08/16 4:23 AM) Hct [42.0-54.0 %] 89.0 fL (09/10/16 5:07 AM) 90.2 fL (09/09/16 3:33 AM) 89.8 fL (09/08/16 4:23 AM) MCV [80.0-94.0 fL] 30.0 pg (09/10/16 5:07 AM) 29.4 pg (09/09/16 3:33 AM) 29.4 pg (09/08/16 4:23 AM) MCH [27.0-31.0 pg] 33.7 g/dL (09/10/16 5:07 AM) 32.6 g/dL (09/09/16 3:33 AM) 32.7 g/dL (09/08/16 4:23 AM) MCHC [32.0-36.0 g/dL] 14.3 % (09/10/16 5:07 AM) 14.4 % (09/09/16 3:33 AM) 14.6 % *HI* (09/08/16 4:23 AM) RDW [11.5-14.5 %] 162 K/CMM (09/10/16 5:07 AM) 160 K/CMM (09/09/16 3:33 AM) 168 K/CMM (09/08/16 4:23 AM) Platelet [133-450 K/CMM] 8.6 fL (09/10/16 5:07 AM) 8.9 fL (09/09/16 3:33 AM) 8.8 fL (09/08/16 4:23 AM) MPV [7.4-10.4 fL] 66.0 % (09/10/16 5:07 AM) 68.0 % (09/09/16 3:33 AM) 78.1 % *HI* (09/08/16 4:23 AM) Segs [45.0-75.0 %] 18.6 % *LOW* (09/10/16 5:07 AM) 17.1 % *LOW* (09/09/16 3:33 AM) 9.6 % *LOW* (09/08/16 4:23 AM) Lymphocytes [20.0-40.0 %] 9.6 % (09/10/16 5:07 AM) 8.8 % (09/09/16 3:33 AM) 8.8 % (09/08/16 4:23 AM) Monocytes [2.0-12.0 %] 5.2 % *HI* (09/10/16 5:07 AM) 5.4 % *HI* (09/09/16 3:33 AM) 3.2 % (09/08/16 4:23 AM) Eosinophils [0.0-4.0 %] 0.6 % (09/10/16 5:07 AM) 0.7 % (09/09/16 3:33 AM) 0.3 % (09/08/16 4:23 AM) Basophils [0.0-1.0 %] 5.9 K/CMM (09/10/16 5:07 AM) 6.0 K/CMM (09/09/16 3:33 AM) 8.9 K/CMM *HI* (09/08/16 4:23 AM) Segs-Bands # [1.5-8.1 K/CMM] 1.7 K/CMM (09/10/16 5:07 AM) 1.5 K/CMM (09/09/16 3:33 AM) 1.1 K/CMM (09/08/16 4:23 AM) Lymphocytes # [1.0-5.5 K/CMM] 0.9 K/CMM *HI* (09/10/16 5:07 AM) 0.8 K/CMM (09/09/16 3:33 AM) 1.0 K/CMM *HI* (09/08/16 4:23 AM) Monocytes # [0.0-0.8 K/CMM] 0.5 K/CMM (09/10/16 5:07 AM) 0.5 K/CMM (09/09/16 3:33 AM) 0.4 K/CMM (09/08/16 4:23 AM) Eosinophils # [0.0-0.5 K/CMM] 0.1 K/CMM (09/10/16 5:07 AM) 0.1 K/CMM (09/09/16 3:33 AM) 0.1 K/CMM (09/07/16 12:40 PM) Basophils # [0.0-0.2 K/CMM] Immunizations No data available for this section Procedures No data available for this section Social History Social History Type Response Alcohol Current, Type Beer. Frequency: Daily. Started age 68 Years. Alcohol use interferes with work or home: No. Drinks more than intended: No. Others hurt by drinking: No. Ready to change: Yes. Household alcohol concerns: Yes. Smoking Status Never smoker; Previous treatment: None; Exposure to Tobacco Smoke None; Cigarette Smoking Last 365 Days No; Reg Smoking Cessation Counseling No Assessment and Plan Extracted from: Title: [facility] discharge summary Author: Jack Suarez Date: 09/12/16 Discharge Summary Name: Simon Ordaz Record Number: [id number] Attending Physician: Santy Parnell MD Admission Date: 09/07/16 Discharge Date: 09/12/16 Admission Diagnoses: Incisional ventral hernia x2 Small bowel obstruction History of perforated diverticulitis s/p Long's procedure and subsequent colostomy takedown History of obesity s/p Lap Band placement in 2002 Discharge Diagnoses: Incisional ventral hernia x2 Small bowel obstruction History of perforated diverticulitis s/p Long's procedure and subsequent colostomy takedown History of obesity s/p Lap Band placement in 2002 Procedures: None Hospital course: 71yo male with history of perforated diverticulitis, long's procedure and colostomy takedown over 10 years ago as well as obesity and history of lap band placed in 2002 who presented on 09/07/16 complaining of abdominal pain, nausea and vomiting. On admission he was fount to have two reducible incisional ventral hernias with evident signs of obstruction on CT scan. Patient was admited for close monitoring, was made NPO, NGT was placed and he was started on clear liquid diet. Throughout the days patient clinically improved with conservative management. NGT was removed on 09/10 and patient was started on CLD which he tolerated well without nausea or vomitnig. On 09/12 patient referred abdominal pain was under controlled, on exam he was significantly less distended, passing gas and having bowel function. He was also ambulating in hallways and tolerating diet therefore he was deemed ready for discharge home with follow up in 1 week for planning of ventral hernia repair. Discharge condition: Good Medications: Per medical record Diet: Full liquid diet Activity: As tolerated Follow up: Fabien Siddiqui, 1 week Oscar. CARLOS Suarez PGY1, General Surgery Extracted from: Title: [facility] progress note Author: Jaspreet, Rosibel De La Cruz Date: 09/12/16 (Fellow) DO Impression and Plan 71 M with PMH of perforated dierticulitis s/p yanira's procedure and colostomy takedown and obesity s/p lap band, incisional hernia x 2, who presents with SBO with transition point within incisional hernia SBO due to incisional hernia - Remains afebrile, VSS - Leukocytosis resolved - UOP adequate, LOIS resolved - Abdominal exam continues to improve. Hernias are reducible - Advance to full liquid deit History of AFIB, HTN - Currently in NSR - Home meds (metoprolol, diltiazem, amiodarone) resumed. Hold Xarelto - PRN IV hydralazine for SBP >160 History depression - Home paxil resumed Dispo - D/c home today if tolerating fulls. Follow-up with Dr. Siddiqui in 1 week to schedule elective incisional hernia repair. May resume Xarelto in the meantime Extracted from: Title: General Admission H&P * Author: Estevan Maharaj (Fellow) Date: 09/07/16 MD Impression and Plan 71 M with 2 incisional hernias, concern for inferior hernia with transition however on exam reduces with palpation Admit plan Keep NPO with IVF resuscitation and f/u labs Will remove all the fluid within the lab band, and plan to place NGT Should pt clinical course worsen or bowel obstruction not resolve will plan for surgical exploration
--- OUTSIDE RECORDS SUMMARY | 2018-10-04 04:21 | XMS REPORT | Summary of Care ---
Author Author [facility] Organization [facility] Address Unknown Phone Unavailable Encounter LAUREN Renee(GERARDO) [id number] Date(s): 08/13/17 - 08/14/17 [facility] [address] [employer] [facility] provided by [facility] [place] [address]- Discharge Disposition: Home or Self Care Attending Physician: Arnulfo Munoz MD Admitting Physician: Arnulfo Munoz MD Referring Physician: Justo Spicer MD Vital Signs 1 2 3 Most recent to oldest [Reference Range]: 167.64 cm (08/13/17 6:33 PM) Height 98.3 DegF (08/14/17 9:36 AM) 97.6 DegF (08/13/17 2:00 PM) 98.4 DegF (08/13/17 7:15 AM) Temperature Oral [96.4-99.1 DegF] 148/69 mmHg *HI* (08/14/17 2:00 PM) 159/72 mmHg *HI* (08/14/17 1:00 PM) Blood Pressure [90-140/60-90 mmHg] 150 mmHg *HI* (08/14/17 12:00 PM) Systolic Blood Pressure [90-140 mmHg] 77 mmHg (08/14/17 12:00 PM) Diastolic Blood Pressure [60-90 mmHg] 21 BRMIN *HI* (08/14/17 2:00 PM) 21 BRMIN *HI* (08/14/17 1:00 PM) 19 BRMIN (08/14/17 12:00 PM) Respiratory Rate [14-20 BRMIN] 76 bpm (08/13/17 5:03 AM) Peripheral Pulse Rate [60-100 bpm] 100 kg (08/13/17 6:33 PM) Weight 35.58 m2 (08/13/17 6:33 PM) Body Mass Index Problem List Condition Effective Dates Status Health Status Informant Atrial Resolved fibrillation(Confirm ed) CKD (chronic kidney Resolved disease) stage 3, GFR 30-59 ml/min(Confirmed) Facial Resolved neuropathy(Confirmed ) GERD Resolved (gastroesophageal reflux disease)(Confirmed) HTN Resolved (hypertension)(Confi rmed) Hypothyroid(Confirme Resolved d) Incisional Resolved hernia(Confirmed) Obesity(Confirmed) Active Allergies, Adverse Reactions, Alerts Substance Reaction Severity Status NKDA Active Medications acetaminophen 650 mg, 2 tab, Route: PO, Drug form: TAB, Q4H, kg, PRN Pain 1-3/Temp > 99.5 F, Start date: 08/13/17 6:18:00 ANIMATION CAMERA OPERATOR, Duration: 30 day, Stop date: 09/12/17 6:17:00 ANIMATION CAMERA OPERATOR Notes: Do not exceed 4 gm/day. (Same as: Tylenol) Start Date: 08/13/17 Stop Date: 08/14/17 Status: Discontinued acetaminophen-hydrocodone 325 mg-10 mg oral tablet 1 tab, Route: PO, Drug Form: TAB, kg, Q4H, PRN Pain Score 4-6, Start date: 08/13 6:18:00 ANIMATION CAMERA OPERATOR, Duration: 30 day, Stop date: 09/12/17 6:17:00 ANIMATION CAMERA OPERATOR Notes: Do not exceed 4gm/day of acetaminophen. (Same as: [place] 325/10) Start Date: 08/13/17 Stop Date: 08/13/17 Status: Discontinued acetaminophen-hydrocodone 325 mg-5 mg oral tablet 1 tab, Route: PO, Drug Form: TAB, kg, Q4H, PRN Pain Score 1-3, Start date: 08/13 6:18:00 ANIMATION CAMERA OPERATOR, Duration: 30 day, Stop date: 09/12/17 6:17:00 ANIMATION CAMERA OPERATOR Notes: (Same as: [place] 325/5) Do not exceed 4gm/day of acetaminophen. Start Date: 08/13/17 Stop Date: 08/13/17 Status: Discontinued AMIODarone 200 mg, 1 tab, Route: PO, Drug form: TAB, Daily, Dosing Weight 100, kg, Priority : NOW, Start date: 08/13/17 20:03:00 ANIMATION CAMERA OPERATOR, Stop date: 09/12/17 21:00:00 ANIMATION CAMERA OPERATOR Notes: (Same as: Cordarone) Start Date: 08/13/17 Stop Date: 08/14/17 Status: Discontinued AMIODarone 200 mg oral tablet 200 mg=1 tab, PO, Daily, # 90 tab, 3 Refill(s) Start Date: 08/13/17 Status: Ordered bisacodyl 10 mg, 1 supp, Route: AL, Drug form: SUPP, Daily, kg, PRN Constipation, Start da te: 08/13/17 6:18:00 ANIMATION CAMERA OPERATOR, Duration: 30 day, Stop date: 09/12/17 6:17:00 ANIMATION CAMERA OPERATOR Notes: (Same As: Dulcolax, Bisco-Lax) Start Date: 08/13/17 Stop Date: 08/14/17 Status: Discontinued Dextrose 50% Syringe 6.25 gm, 12.5 mL, Route: IVP, Drug Form: INJ, Dosing Weight 100, kg, PRN, PRN Ab normal Lab Result, Start date: 08/13/17 20:03:00 ANIMATION CAMERA OPERATOR, Duration: 30 day, Stop yun e: 09/12/17 20:02:00 ANIMATION CAMERA OPERATOR Start Date: 08/13/17 Stop Date: 08/14/17 Status: Discontinued Dextrose 50% Syringe 25 gm, 50 mL, Route: IVP, Drug Form: INJ, Dosing Weight 100, kg, PRN, PRN Abnorm al Lab Result, Start date: 08/13/17 20:03:00 ANIMATION CAMERA OPERATOR, Duration: 30 day, Stop date: 0 09/12/17 20:02:00 ANIMATION CAMERA OPERATOR Start Date: 08/13/17 Stop Date: 08/14/17 Status: Discontinued Dextrose 50% Syringe 12.5 gm, 25 mL, Route: IVP, Drug Form: INJ, Dosing Weight 100, kg, PRN, PRN Abno rmal Lab Result, Start date: 08/13/17 20:03:00 ANIMATION CAMERA OPERATOR, Duration: 30 day, Stop date: 09/12/17 20:02:00 ANIMATION CAMERA OPERATOR Start Date: 08/13/17 Stop Date: 08/14/17 Status: Discontinued Dilaudid 0.5 mg, Route: IVP, ONCE, kg, Priority: STAT, Start date: 08/13/17 16:07:00 ANIMATION CAMERA OPERATOR, Stop date: 08/13/17 16:07:00 ANIMATION CAMERA OPERATOR Start Date: 08/13/17 Stop Date: 08/13/17 Status: Completed Dilaudid 0.5 mg, 0.25 mL, Route: IVP, Drug form: INJ, ONCE, kg, Priority: STAT, Start yun e: 08/13/17 9:29:00 ANIMATION CAMERA OPERATOR, Stop date: 08/13/17 9:29:00 ANIMATION CAMERA OPERATOR Notes: Same as Dilaudid Start Date: 08/13/17 Stop Date: 08/13/17 Status: Completed docusate 100 mg, 1 cap, Route: PO, Drug form: CAP, Q12H, kg, Start date: 08/13/17 9:00:00 ANIMATION CAMERA OPERATOR, Duration: 30 day, Stop date: 09/11/17 21:00:00 ANIMATION CAMERA OPERATOR Notes: (Same as: Colace) (Do Not Crush) Start Date: 08/13/17 Stop Date: 08/14/17 Status: Discontinued fentaNYL 25 microgram, Route: IV, Drug form: INJ, ONCE, kg, PRN Pain Score 7-10, Start da te: 08/13/17 8:00:00 ANIMATION CAMERA OPERATOR, Pediatric Dosing; For procedure; > 50 kg Start Date: 08/13/17 Stop Date: 08/13/17 Status: Completed folic acid 1 mg, 1 tab, Route: PO, Drug form: TAB, Daily, Dosing Weight 100, kg, Start date : 08/14/17 9:00:00 ANIMATION CAMERA OPERATOR, Duration: 5 day, Stop date: 08/18/17 9:00:00 ANIMATION CAMERA OPERATOR Notes: (Same as: Folvite) Start Date: 08/14/17 Stop Date: 08/14/17 Status: Discontinued gabapentin 600 mg oral tablet 600 mg, 2 cap, Route: PO, Drug form: CAP, QID, Dosing Weight 100, kg, Priority: NOW, Start date: 08/13/17 22:07:00 ANIMATION CAMERA OPERATOR, Duration: 30 day, Stop date: 09/12/17 21 :00:00 ANIMATION CAMERA OPERATOR Notes: (Same as: Neurontin) Start Date: 08/13/17 Stop Date: 08/14/17 Status: Discontinued gabapentin 600 mg oral tablet 600 mg=1 tab, PO, QID, 0 Refill(s) Start Date: 08/13/17 Status: Ordered heparin 5000 units/mL injectable solution 5,000 unit, 1 mL, Route: SUB-Q, Drug form: INJ, Q8H, Dosing Weight 100, kg, Star t date: 08/14/17 16:00:00 ANIMATION CAMERA OPERATOR, Duration: 30 day, Stop date: 09/13/17 8:00:00 ANIMATION CAMERA OPERATOR Notes: porcine heparin Start Date: 08/14/17 Stop Date: 08/14/17 Status: Canceled hydrALAZINE 20 mg, 1 mL, Route: IVP, Drug form: INJ, Q4H, Dosing Weight 100, kg, PRN Hyperte nsion, Start date: 08/13/17 18:38:00 ANIMATION CAMERA OPERATOR, Duration: 30 day, Stop date: 09/12/17 18:37:00 ANIMATION CAMERA OPERATOR Notes: (Same as: Apresoline)Push over 5 minutes Start Date: 08/13/17 Stop Date: 08/14/17 Status: Discontinued insulin regular 100 units/mL human recombinant 3 unit, 0.03 mL, Route: SUB-Q, Drug form: SOLN, PRN, Dosing Weight 100, kg, PRN Abnormal Lab Result, Start date: 08/13/17 20:03:00 ANIMATION CAMERA OPERATOR, Duration: 30 day, Stop d ate: 09/12/17 20:02:00 ANIMATION CAMERA OPERATOR Notes: (Same as: Humulin R) Roll in palms of hands gently; Do not shake vigorou sly. "single patient use only"(Restricted to patients requiring a dose > 60 units)WASTE: F/P - Black; E - Municipal Trash Bin Stable for 28 days at room temperatureExpires in days from Date Start Date: 08/13/17 Stop Date: 08/14/17 Status: Discontinued insulin regular 100 units/mL human recombinant 5 unit, 0.05 mL, Route: SUB-Q, Drug form: SOLN, PRN, Dosing Weight 100, kg, PRN Abnormal Lab Result, Start date: 08/13/17 20:03:00 ANIMATION CAMERA OPERATOR, Duration: 30 day, Stop d ate: 09/12/17 20:02:00 ANIMATION CAMERA OPERATOR Notes: (Same as: Humulin R) Roll in palms of hands gently; Do not shake vigorou sly. "single patient use only"(Restricted to patients requiring a dose > 60 units)WASTE: F/P - Black; E - Municipal Trash Bin Stable for 28 days at room temperatureExpires in days from Date Start Date: 08/13/17 Stop Date: 08/14/17 Status: Discontinued insulin regular 100 units/mL human recombinant 7 unit, 0.07 mL, Route: SUB-Q, Drug form: SOLN, PRN, Dosing Weight 100, kg, PRN Abnormal Lab Result, Start date: 08/13/17 20:03:00 ANIMATION CAMERA OPERATOR, Duration: 30 day, Stop d ate: 09/12/17 20:02:00 ANIMATION CAMERA OPERATOR Notes: (Same as: Humulin R) Roll in palms of hands gently; Do not shake vigorou sly. "single patient use only"(Restricted to patients requiring a dose > 60 units)WASTE: F/P - Black; E - Municipal Trash Bin Stable for 28 days at room temperatureExpires in days from Date Start Date: 08/13/17 Stop Date: 08/14/17 Status: Discontinued Keppra 1,000 mg, Route: IV, ONCE, kg, Priority: NOW, Start date: 08/13/17 5:08:00 ANIMATION CAMERA OPERATOR, Stop date: 08/13/17 5:08:00 ANIMATION CAMERA OPERATOR Start Date: 08/13/17 Stop Date: 08/13/17 Status: Completed Keppra 500 mg oral tablet 500 mg=1 tab, PO, Q12H, # 12 tab, 0 Refill(s) Start Date: 08/14/17 Stop Date: 08/20/17 Status: Ordered Keppra 500 mg oral tablet 500 mg, 1 tab, Route: PO, Drug form: TAB, Q12H, Dosing Weight 100, kg, Start yun e: 08/14/17 9:00:00 ANIMATION CAMERA OPERATOR, Duration: 6 day, Stop date: 08/19/17 21:00:00 ANIMATION CAMERA OPERATOR Notes: (Same as:Keppra) Start Date: 08/14/17 Stop Date: 08/14/17 Status: Discontinued labetalol 10 mg, 2 mL, Route: IVP, Drug form: INJ, Q15Min, Dosing Weight 100, kg, PRN Hype rtension, Start date: 08/13/17 18:38:00 ANIMATION CAMERA OPERATOR, Duration: 30 day, Stop date: 18:37:00 ANIMATION CAMERA OPERATOR Start Date: 08/13/17 Stop Date: 08/14/17 Status: Discontinued levETIRAcetam + Sodium Chloride 0.9% IV 100 mL 500 mg, Route: IV, Q12H, kg, Start date: 08/13/17 9:00:00 ANIMATION CAMERA OPERATOR, Duration: 7 day, Stop date: 08/19/17 21:00:00 ANIMATION CAMERA OPERATOR Notes: Same as KeppraMix with 100 mL NS, LR or D5W MEDICATION WASTE Prod uct Size: 500 mgProduct Wasted: ___ mg Start Date: 08/13/17 Stop Date: 08/13/17 Status: Discontinued levothyroxine 50 microgram, 1 tab, Route: PO, Drug form: TAB, Q630AM, Dosing Weight 100, kg, S tart date: 08/14/17 6:30:00 ANIMATION CAMERA OPERATOR, Duration: 30 day, Stop date: 09/12/17 6:30:[address] Notes: Take 1 hour before or 2 hours after meal; Enteral feeds may interefere wi th the absorption of this medication.(Same as:Levothroid, Synthroid) Start Date: 08/14/17 Stop Date: 08/14/17 Status: Discontinued levothyroxine 50 mcg (0.05 mg) oral tablet 50 microgram=1 tab, PO, Daily, 0 Refill(s) Start Date: 08/13/17 Status: Ordered lidocaine 1% injectable solution 10 mg, 1 ml, Route: SUB-Q, Drug Form: INJ, kg, ONCE, Start date: 08/13/17 9:18:0 0 ANIMATION CAMERA OPERATOR, Stop date: 08/13/17 9:18:00 ANIMATION CAMERA OPERATOR Notes: (Same as: Xylocaine) Start Date: 08/13/17 Stop Date: 08/13/17 Status: Completed liothyronine 5 microgram, 1 tab, Route: PO, Drug form: TAB, Daily, Dosing Weight 100, kg, Sta rt date: 08/14/17 9:00:00 ANIMATION CAMERA OPERATOR, Duration: 30 day, Stop date: 09/12/17 9:00:00 ANIMATION CAMERA OPERATOR Notes: (Same as: Cytomel) Start Date: 08/14/17 Stop Date: 08/14/17 Status: Discontinued liothyronine 5 mcg oral tablet 5 microgram=1 tab, PO, Daily, 0 Refill(s) Start Date: 08/13/17 Status: Ordered metoprolol tartrate 25 mg, 1 tab, Route: PO, Drug form: TAB, Q12H, Dosing Weight 100, kg, Start date : 08/13/17 21:00:00 ANIMATION CAMERA OPERATOR, Duration: 30 day, Stop date: 09/12/17 9:00:00 ANIMATION CAMERA OPERATOR Notes: (Same as: Lopressor) Start Date: 08/13/17 Stop Date: 08/14/17 Status: Discontinued metoprolol tartrate 25 mg oral tablet 25 mg=1 tab, PO, BID, 0 Refill(s) Start Date: 08/13/17 Status: Ordered multivitamin 1 tab, Route: PO, Drug Form: TAB, Dosing Weight 100, kg, Daily, Start date: 09/30 9:00:00 ANIMATION CAMERA OPERATOR, Duration: 5 day, Stop date: 08/18/17 9:00:00 ANIMATION CAMERA OPERATOR Notes: (Same as:Gala)WASTE: F/P - Black; E - [employer] Trash Bin Take with manisha d. Start Date: 08/14/17 Stop Date: 08/14/17 Status: Discontinued [place] 5/325 oral tablet 1 tab, Route: PO, Drug Form: TAB, Dosing Weight 100, kg, Q6H, PRN Pain Score 1-3 , Start date: 08/13/17 20:03:00 ANIMATION CAMERA OPERATOR, Duration: 30 day, Stop date: 09/12/17 20:02 :00 ANIMATION CAMERA OPERATOR Notes: (Same as: [place] 325/5) Do not exceed 4gm/day of acetaminophen. Start Date: 08/13/17 Stop Date: 08/14/17 Status: Discontinued omeprazole 20 mg, Route: PO, Drug form: ECTAB, Daily, Dosing Weight 100, kg, Start date: 9:00:00 ANIMATION CAMERA OPERATOR, Duration: 30 day, Stop date: 09/12/17 9:00:00 ANIMATION CAMERA OPERATOR Start Date: 08/14/17 Stop Date: 08/13/17 Status: Deleted omeprazole 20 mg oral enteric coated tablet 20 mg=1 tab, PO, Daily, 0 Refill(s) Start Date: 08/13/17 Status: Ordered ondansetron 4 mg, 2 mL, Route: IVP, Drug form: INJ, Q8H, kg, PRN Nausea & Vomiting, Start date: 08/13/17 6:18:00 ANIMATION CAMERA OPERATOR, Duration: 30 day, Stop date: 09/12/17 6:17:00 ANIMATION CAMERA OPERATOR Notes: (Same as: Agapito) MEDICATION WASTE Product Size: 4 mgProduct Was mary kate: ___ mg Start Date: 08/13/17 Stop Date: 08/14/17 Status: Discontinued Protonix 40 mg, 1 tab, Route: PO, Drug form: ECTAB, Before Dinner, Start date: 08/14/17 1 6:30:00 ANIMATION CAMERA OPERATOR, Duration: 30 day, Stop date: 09/12/17 16:30:00 ANIMATION CAMERA OPERATOR Notes: Tablet should not be chewed or crushed.(Same as: Protonix) Start Date: 08/14/17 Stop Date: 08/14/17 Status: Canceled ranitidine 300 mg, 20 mL, Route: PO, Drug form: SYRP, Bedtime, Dosing Weight 100, kg, Start date: 08/13/17 21:00:00 ANIMATION CAMERA OPERATOR, Duration: 30 day, Stop date: 09/11/17 21:00:00 ANIMATION CAMERA OPERATOR Notes: (Same as:Zantac) Take before or with meals Start Date: 08/13/17 Stop Date: 08/14/17 Status: Discontinued ranitidine 300 mg oral capsule 300 mg=1 cap, PO, Bedtime, 0 Refill(s) Start Date: 08/13/17 Status: Ordered Saline Flush 0.9% 10 mL, Route: IVP, Drug Form: INJ, kg, PRN, PRN Line Flush, Start date: 08/13/17 5:07:00 ANIMATION CAMERA OPERATOR, Duration: 30 day, Stop date: 09/12/17 5:06:00 ANIMATION CAMERA OPERATOR Notes: Same as: BD Posiflush Sterile Start Date: 08/13/17 Stop Date: 08/14/17 Status: Discontinued Saline Flush 0.9% 10 ml, Route: IVP, Drug Form: INJ, kg, PRN, PRN Line Flush, Start date: 08/13/17 6:18:00 ANIMATION CAMERA OPERATOR, Duration: 30 day, Stop date: 09/12/17 6:17:00 ANIMATION CAMERA OPERATOR Notes: (Same as: BD Posiflush) Start Date: 08/13/17 Stop Date: 08/14/17 Status: Discontinued Saline Flush 0.9% 10 ml, Route: IVP, Drug Form: INJ, kg, Q12H, Start date: 08/13/17 9:00:00 ANIMATION CAMERA OPERATOR, D uration: 30 day, Stop date: 09/11/17 21:00:00 ANIMATION CAMERA OPERATOR Notes: Same as: BD Posiflush Sterile Start Date: 08/13/17 Stop Date: 08/14/17 Status: Discontinued senna 8.6 mg, 1 tab, Route: PO, Drug Form: TAB, kg, Q12H, Start date: 08/13/17 9:00:00 ANIMATION CAMERA OPERATOR, Duration: 30 day, Stop date: 09/11/17 21:00:00 ANIMATION CAMERA OPERATOR Notes: (Same as: Senokot) Start Date: 08/13/17 Stop Date: 08/14/17 Status: Discontinued Sodium Chloride 0.9% IV 1,000 mL 1,000 mL, Rate: 50 ml/hr, Infuse over: 20 hr, Route: IV, Total Volume: 1,000, St art date: 08/13/17 6:18:00 ANIMATION CAMERA OPERATOR, Duration: 30 day, Stop date: 09/12/17 6:17:00 CS T Start Date: 08/13/17 Stop Date: 08/14/17 Status: Discontinued thiamine 100 mg, 1 tab, Route: PO, Drug form: TAB, Daily, Dosing Weight 100, kg, Start da te: 08/14/17 9:00:00 ANIMATION CAMERA OPERATOR, Duration: 5 day, Stop date: 08/18/17 9:00:00 ANIMATION CAMERA OPERATOR Notes: (Same As: Vitamin B1) Start Date: 08/14/17 Stop Date: 08/14/17 Status: Discontinued torsemide 10 mg, 1 tab, Route: PO, Drug form: TAB, Daily, Dosing Weight 100, kg, Start yun e: 08/14/17 9:00:00 ANIMATION CAMERA OPERATOR, Duration: 30 day, Stop date: 09/12/17 9:00:00 ANIMATION CAMERA OPERATOR Notes: (Same As: Demadex) Start Date: 08/14/17 Stop Date: 08/14/17 Status: Discontinued torsemide 10 mg oral tablet 10 mg=1 tab, PO, Daily, 0 Refill(s) Start Date: 08/13/17 Status: Ordered Xarelto 20 mg oral tablet 20 mg=1 tab, PO, QPM, 0 Refill(s) Start Date: 08/13/17 Stop Date: 08/14/17 Status: Discontinued Results BLOOD BANK RESULTS Most recent to 08 14 oldest [Reference Range]: ABO/Rh A POS *Unknown* (08/13/17 5:20 AM) Antibody Scrn Negative (08/13/17 5:20 AM) ELECTROLYTES Most recent to 08 14 oldest [Reference Range]: Sodium Lvl [135-145 139 mEq/L 140 mEq/L mEq/L] (08/14/17 12:16 AM) (08/13/17 5:18 AM) Potassium Lvl 4.5 mEq/L 4.3 mEq/L [3.5-5.1 mEq/L] (08/14/17 12:16 AM) (08/13/17 5:18 AM) Chloride Lvl [95-109 103 mEq/L 105 mEq/L mEq/L] (08/14/17 12:16 AM) (08/13/17 5:18 AM) CO2 [24-32 mEq/L] 28 mEq/L 25 mEq/L (08/14/17 12:16 AM) (08/13/17 5:18 AM) AGAP [10.0-20.0 12.5 mEq/L 14.3 mEq/L mEq/L] (08/14/17 12:16 AM) (08/13/17 5:18 AM) CHEM PANEL Most recent to 08 14 oldest [Reference Range]: Creatinine Lvl 1.15 mg/dL 1.19 mg/dL [0.50-1.40 mg/dL] (08/14/17 12:16 AM) (08/13/17 5:18 AM) eGFR 63 mL/min/1.73m2 1 61 mL/min/1.73m2 2 *NA* *NA* (08/14/17 12:16 AM) (08/13/17 5:18 AM) BUN [7-22 mg/dL] 18 mg/dL 21 mg/dL (08/14/17 12:16 AM) (08/13/17 5:18 AM) Glucose Lvl [70-99 160 mg/dL 134 mg/dL mg/dL] *HI* *HI* (08/14/17 12:16 AM) (08/13/17 5:18 AM) Calcium Lvl 8.3 mg/dL 8.9 mg/dL [8.5-10.5 mg/dL] *LOW* (08/13/17 5:18 AM) (08/14/17 12:16 AM) Ammonia [<=45.0 38.0 uMol/L uMol/L] (08/14/17 12:16 AM) Lactic Acid Lvl 1.4 mMol/L 2.2 mMol/L [0.5-2.2 mMol/L] (08/13/17 10:15 AM) (08/13/17 5:18 AM) 1Result Comment: The eGFR is calculated using [...] be mul tiplied by the estimated BMI. DRUG SCREEN Most recent to 1 2 oldest [Reference Range]: U Amph Scr Negative [Negative] *NA* (08/13/17 10:15 AM) U Rhonda Scr Negative [Negative] *NA* (08/13/17 10:15 AM) U Benzodia Scr Positive [Negative] *ABN* (08/13/17 10:15 AM) U Cocaine Scr Negative [Negative] *NA* (08/13/17 10:15 AM) U Opiate Scr Negative [Negative] *NA* (08/13/17 10:15 AM) U Phencyc Scr Negative [Negative] *NA* (08/13/17 10:15 AM) U Cannab Scr Negative [Negative] *NA* (08/13/17 10:15 AM) UDS Note See Note (08/13/17 10:15 AM) TOXICOLOGY Most recent to 1 2 oldest [Reference Range]: Etoh (%) .073 % *NA* (08/13/17 5:18 AM) Ethanol Lvl 73 mg/dL *NA* (08/13/17 5:18 AM) URINE AND STOOL Most recent to 1 2 oldest [Reference Range]: UA Turbidity [Clear] Clear (08/13/17 10:15 AM) UA Color [Yellow] Yellow *NA* (08/13/17 10:15 AM) UA pH [5.0-8.0] 6.0 (08/13/17 10:15 AM) UA Spec Grav 1.020 [<=1.030] (08/13/17 10:15 AM) UA Glucose [Negative Negative mg/dL mg/dL] (08/13/17 10:15 AM) UA Blood [Negative] Negative (08/13/17 10:15 AM) UA Ketones [Negative Negative mg/dL mg/dL] *NA* (08/13/17 10:15 AM) UA Protein [Negative Negative mg/dL mg/dL] (08/13/17 10:15 AM) UA Urobilinogen 0.2 EU/dL [0.1-1.0 EU/dL] (08/13/17 10:15 AM) UA Bili [Negative] Negative *NA* (08/13/17 10:15 AM) UA Leuk Est Negative [Negative] (08/13/17 10:15 AM) UA Nitrite Negative [Negative] (08/13/17 10:15 AM) UA WBC [None Seen] None Seen (08/13/17 10:15 AM) UA RBC [0-2] None Seen (08/13/17 10:15 AM) UA Bacteria [None None Seen Seen] (08/13/17 10:15 AM) UA Sq Epi [Few] None Seen (08/13/17 10:15 AM) HEMATOLOGY Most recent to 1 2 oldest [Reference Range]: WBC [3.7-10.4 K/CMM] 11.1 K/CMM 16.3 K/CMM *HI* *HI* (08/14/17 12:16 AM) (08/13/17 5:18 AM) RBC [4.70-6.10 4.97 M/CMM 5.66 M/CMM M/CMM] (08/14/17 12:16 AM) (08/13/17 5:18 AM) Hgb [14.0-18.0 g/dL] 13.0 g/dL 13.7 g/dL *LOW* *LOW* (08/14/17 12:16 AM) (08/13/17 5:18 AM) Hct [42.0-54.0 %] 39.6 % 44.0 % *LOW* (08/13/17 5:18 AM) (08/14/17 12:16 AM) MCV [80.0-94.0 fL] 79.6 fL 77.8 fL *LOW* *LOW* (08/14/17 12:16 AM) (08/13/17 5:18 AM) MCH [27.0-31.0 pg] 26.2 pg 24.3 pg *LOW* *LOW* (08/14/17 12:16 AM) (08/13/17 5:18 AM) MCHC [32.0-36.0 32.9 g/dL 31.2 g/dL g/dL] (08/14/17 12:16 AM) *LOW* (08/13/17 5:18 AM) RDW [11.5-14.5 %] 18.8 % 18.6 % *HI* *HI* (08/14/17 12:16 AM) (08/13/17 5:18 AM) Platelet [133-450 252 K/CMM 293 K/CMM K/CMM] (08/14/17 12:16 AM) (08/13/17 5:18 AM) MPV [7.4-10.4 fL] 8.2 fL 7.7 fL (08/14/17 12:16 AM) (08/13/17 5:18 AM) Segs [45.0-75.0 %] 77.6 % 81.5 % *HI* *HI* (08/14/17 12:16 AM) (08/13/17 5:18 AM) Lymphocytes 14.3 % 10.8 % [20.0-40.0 %] *LOW* *LOW* (08/14/17 12:16 AM) (08/13/17 5:18 AM) Monocytes [2.0-12.0 6.4 % 6.6 % %] (08/14/17 12:16 AM) (08/13/17 5:18 AM) Eosinophils [0.0-4.0 1.1 % 0.6 % %] (08/14/17 12:16 AM) (08/13/17 5:18 AM) Basophils [0.0-1.0 0.6 % 0.5 % %] (08/14/17 12:16 AM) (08/13/17 5:18 AM) Segs-Bands # 8.7 K/CMM 13.2 K/CMM [1.5-8.1 K/CMM] *HI* *HI* (08/14/17 12:16 AM) (08/13/17 5:18 AM) Lymphocytes # 1.6 K/CMM 1.8 K/CMM [1.0-5.5 K/CMM] (08/14/17 12:16 AM) (08/13/17 5:18 AM) Monocytes # [0.0-0.8 0.7 K/CMM 1.1 K/CMM K/CMM] (08/14/17 12:16 AM) *HI* (08/13/17 5:18 AM) Eosinophils # 0.1 K/CMM 0.1 K/CMM [0.0-0.5 K/CMM] (08/14/17 12:16 AM) (08/13/17 5:18 AM) Basophils # [0.0-0.2 0.1 K/CMM 0.1 K/CMM K/CMM] (08/14/17 12:16 AM) (08/13/17 5:18 AM) Microcyte [None 1+ Seen] *ABN* (08/13/17 5:18 AM) ACT (TEG) Rapid 121 seconds [86-118 seconds] *HI* (08/13/17 5:18 AM) Split Point Rapid 0.6 minutes *NA* (08/13/17 5:18 AM) R-time Rapid 0.8 minutes [0.4-0.7 minutes] *HI* (08/13/17 5:18 AM) K-time Rapid 0.8 minutes [0.6-2.3 minutes] (08/13/17 5:18 AM) Angle Rapid [64-80 80 degrees degrees] (08/13/17 5:18 AM) Max Amplitude Rapid 73 mm [52-71 mm] *HI* (08/13/17 5:18 AM) G-value Rapid 13.5 K d/sc [5.0-11.6 K d/sc] *HI* (08/13/17 5:18 AM) Estimated % Lysis 0.9 % Rapid [0.0-7.5 %] (08/13/17 5:18 AM) Immunizations No data available for this section Procedures Procedure Date Related Diagnosis Body Site Hernia repair 12/15/16 Hernia repair 10/05/16 Cataract surgery 11/14/13 Knee joint operation 11/14/12 Bariatric operative procedure 10/13/02 Colostomy 09/14/01 Bariatric operative procedure1 Colostomy Procedure2 Procedure3 1lap band 2colostomy take down 3colon perforation required hospitalization Social History Social History Type Response Substance Abuse Use: None. Sexual Sexual orientation: Heterosexual. Exercise Exercise frequency: Daily. Self assessment: Poor condition. Exercise type: Walking. Employment/School Status: Retired. Highest education level: High school. Alcohol Past, Type Beer. Frequency: Daily. Started age 68 Years. Alcohol use interferes with work or home: No. Drinks more than intended: No. Others hurt by drinking: No. Ready to change: Yes. Household alcohol concerns: Yes. Smoking Status Former smoker; Type: Cigarettes; Previous treatment: None; Exposure to Tobacco Smoke None; Cigarette Smoking Last 365 Days No; Reg Smoking Cessation Counseling No; Number of years: 32; Assessment and Plan No data available for this section
--- OUTSIDE RECORDS SUMMARY | 2018-10-04 04:21 | XMS REPORT | Summary of Care ---
Author Author [facility] Organization [facility] Address Unknown Phone Unavailable Encounter HQ Thelma(FIN) [id number] Date(s): 08/30/17 - 08/30/17 [facility] [address] [phone] Discharge Disposition: Home or Self Care Attending Physician: Arnulfo Zamora MD Referring Physician: Chaitanya Camarena MD Vital Signs Most recent to 1 oldest [Reference Range]: Height 167.64 cm (08/30/17 12:34 PM) Temperature Oral 97.6 DegF [96.4-99.1 DegF] (08/30/17 12:34 PM) Blood Pressure 180/102 mmHg [90-140/60-90 mmHg] *HI* (08/30/17 12:34 PM) Peripheral Pulse 71 bpm Rate [60-100 bpm] (08/30/17 12:34 PM) Weight 96.364 kg (08/30/17 12:34 PM) Body Mass Index 34.29 m2 (08/30/17 12:34 PM) Problem List Condition Effective Dates Status Health Status Informant Atrial Resolved fibrillation(Confirm ed) CKD (chronic kidney Resolved disease) stage 3, GFR 30-59 ml/min(Confirmed) Facial Resolved neuropathy(Confirmed ) GERD Resolved (gastroesophageal reflux disease)(Confirmed) HTN Resolved (hypertension)(Confi rmed) Hypothyroid(Confirme Resolved d) Incisional Resolved hernia(Confirmed) Obesity(Confirmed) Active Allergies, Adverse Reactions, Alerts Substance Reaction Severity Status NKDA Active Medications No data available for this section Results No data available for this section Immunizations No data available for this section Procedures Procedure Date Related Diagnosis Body Site Status Hernia repair 12/15/16 Completed Hernia repair 10/05/16 Completed Cataract surgery 11/14/13 Completed Knee joint operation 11/14/12 Completed Bariatric operative procedure 10/13/02 Completed Colostomy 09/14/01 Completed Bariatric operative procedure1 Completed Colostomy Completed Procedure2 Completed Procedure3 Completed 1lap band 2colostomy take down 3colon perforation required hospitalization Social History Social History Type Response Substance Abuse Use: None. Sexual Sexual orientation: Heterosexual. Exercise Exercise frequency: Daily. Self assessment: Poor condition. Exercise type: Walking. Employment/School Status: Retired. Alcohol Current, Type Beer. Frequency: Daily. Last use: 08/12/17. Previous treatment: None. Alcohol use interferes with work or home: No. Drinks more than intended: Yes. Others hurt by drinking: Yes. Ready to change: No. Household alcohol concerns: No. Smoking Status Former smoker; Type: Cigarettes; Previous treatment: None; Exposure to Tobacco Smoke None; Cigarette Smoking Last 365 Days No; Reg Smoking Cessation Counseling No; Number of years: 32; entered on: 08/30/17 Assessment and Plan No data available for this section
--- OUTSIDE RECORDS SUMMARY | 2018-10-04 04:21 | XMS REPORT | Summary of Care ---
Author Author [facility] Organization [facility] Address Unknown Phone Unavailable Encounter LAUREN Renee(GERARDO) [id number] Date(s): 08/07/18 - 09/05/18 [facility] [address] [place] [address]- Discharge Disposition: Home or Self Care Attending Physician: Iman Acharya MD Referring Physician: Pratibha Hyman MD Vital Signs No data available for this section Problem List Condition Effective Dates Status Health Status Informant Atrial Resolved fibrillation(Confirm ed) CKD (chronic kidney Resolved disease) stage 3, GFR 30-59 ml/min(Confirmed) COPD (chronic Active obstructive pulmonary disease)(Confirmed) Facial Resolved neuropathy(Confirmed ) GERD Active (gastroesophageal reflux disease)(Confirmed) HTN Resolved (hypertension)(Confi rmed) Hypothyroid(Confirme Resolved d) Incisional Resolved hernia(Confirmed) Obesity(Confirmed) Active YANDEL (obstructive Active sleep apnea)(Confirmed)1 1INSTRUCTED PT TO BRING CPAP TO DOS Allergies, Adverse Reactions, Alerts Substance Reaction Severity Status Bactrim Active Medications No data available for this [...] Status: Retired. Alcohol Current, Type Beer. Frequency: 1-2 times per week. Started age 68 Years. Alcohol use interferes with work or home: No. Drinks more than intended: No. Others hurt by drinking: No. Ready to change: Yes. Household alcohol concerns: Yes. Smoking Status Former smoker; Type: Chewing tobacco; Previous treatment: None; Exposure to Tobacco Smoke None; Cigarette Smoking Last 365 Days No; Reg Smoking Cessation Counseling No; Number of years: 32; 1 entered on: 09/04/18 1PT USES CHEWING TOBACCO Assessment and Plan No data available for this section
--- OUTSIDE RECORDS SUMMARY | 2018-10-04 04:21 | XMS REPORT | Summary of Care ---
Author Author [facility] Organization [facility] Address Unknown Phone Unavailable Encounter LAUREN Renee(GERARDO) [id number] Date(s): 10/05/16 - 10/09/16 [facility] [address] [employer] provided by [employer] [facility] [employer] [place] [address]- Final: Ventral hernia without obstruction or gangrene Discharge Disposition: Home or Self Care Attending Physician: Fabien Siddiqui MD Admitting Physician: Fabien Siddiqui MD Referring Physician: Fabien Siddiqui MD Vital Signs 1 2 3 Most recent to oldest [Reference Range]: 167.64 cm (10/05/16 6:12 PM) 167.64 cm (10/05/16 7:18 AM) 167.64 cm (09/27/16 3:42 PM) Height 98.0 DegF (10/09/16 5:20 PM) 97.6 DegF (10/09/16 11:41 AM) 98.0 DegF (10/09/16 7:27 AM) Temperature Oral [96.4-99.1 DegF] 136/74 mmHg (10/09/16 5:20 PM) 131/73 mmHg (10/09/16 11:41 AM) 150/78 mmHg *HI* (10/09/16 7:27 AM) Blood Pressure [90-140/60-90 mmHg] 18 BRMIN (10/09/16 5:20 PM) 18 BRMIN (10/09/16 11:41 AM) 18 BRMIN (10/09/16 7:27 AM) Respiratory Rate [14-20 BRMIN] 74 bpm (10/09/16 5:20 PM) 71 bpm (10/09/16 11:41 AM) 70 bpm (10/09/16 7:27 AM) Peripheral Pulse Rate [60-100 bpm] 84.091 kg (10/05/16 6:12 PM) 84.091 kg (10/05/16 7:18 AM) 81.364 kg (09/27/16 3:42 PM) Weight 29.92 m2 (10/05/16 6:12 PM) 29.92 m2 (10/05/16 7:18 AM) 28.95 m2 (09/27/16 3:42 PM) Body Mass Index Problem List Condition Effective Dates Status Health Status Informant Atrial Resolved fibrillation(Confirm ed) CKD (chronic kidney Resolved disease) stage 3, GFR 30-59 ml/min(Confirmed) GERD Resolved (gastroesophageal reflux disease)(Confirmed) HTN Resolved (hypertension)(Confi rmed) Hypothyroid(Confirme Resolved d) Incisional Resolved hernia(Confirmed) Allergies, Adverse Reactions, Alerts Substance Reaction Severity Status NKDA Active Medications acetaminophen 1,000 mg, 2 tab, Route: PO, Drug form: TAB, Q6Hnow, Dosing Weight 84.091, kg, St art date: 10/05/16 16:00:00 [employer]E [employer], Duration: 30 day, Stop date: 11/04/16 10:00:00 CDT Notes: Max acetaminophen 4000 mg/day (4 gm/day). (Same as: Tylenol Extra Streng th) Start Date: 10/05/16 Stop Date: 10/09/16 Status: Discontinued AMIODarone 200 mg, 1 tab, Route: PO, Drug form: TAB, Daily, Dosing Weight 84.091, kg, Start date: 10/06/16 9:00:00 [employer]E [employer], Stop date: 11/04/16 9:00:00 CDT Notes: (Same as: Cordarone) Start Date: 10/06/16 Stop Date: 10/09/16 Status: Discontinued Ancef 1 gm, Route: IVPB, ONCE, Dosing Weight 84.091, kg, Start date: 10/05/16 11:50:00 [employer]E [employer], Stop date: 10/05/16 11:50:00 [employer]CR[employer]E [employer] Start Date: 10/05/16 Stop Date: 10/05/16 Status: Completed ANES flumazenil 0.2 mg, 2 mL, Route: IVP, Drug form: INJ, PRN, Dosing Weight 84.091, kg, PRN Se zodiazepine Reversal, Initial dose, Start date: 10/05/16 16:07:00 [employer]E [employer], Duration: 1 day, Stop date: 10/06/16 16:06:00 [employer]CRETE P[employer]KER Notes: (Same as: Romazicon) Start Date: 10/05/16 Stop Date: 10/05/16 Status: Discontinued ANES hydrALAZINE 5 mg, 0.25 mL, Route: IVP, Drug form: INJ, Q20Min, Dosing Weight 84.091, kg, PRN Elevated BP, Start date: 10/05/16 16:07:00 [employer]E [employer], Duration: 2 doses or times, Stop date: Limited # of times Notes: (Same as: Apresoline)Push over 5 minutes Start Date: 10/05/16 Stop Date: 10/05/16 Status: Discontinued ANES labetalol 10 mg, 2 mL, Route: IVP, Drug form: INJ, Q5Min, Dosing Weight 84.091, kg, PRN El evated BP, Start date: 10/05/16 16:07:00 [employer]CR[employer]E [employer], Duration: 5 doses or times, Stop d ate: Limited # of times Start Date: 10/05/16 Stop Date: 10/05/16 Status: Discontinued ANES naloxone 0.4 mg, 1 mL, Route: IVP, Drug form: INJ, Q2MIN, Dosing Weight 84.091, kg, PRN N arcotic Reversal, Start date: 10/05/16 16:07:00 [employer]CR[employer]E [employer], Duration: 8 doses or times, Stop date: Limited # of times Notes: Same as Narcan Start Date: 10/05/16 Stop Date: 10/05/16 Status: Discontinued ANES ondansetron 4 mg, 2 mL, Route: IVP, Drug form: INJ, ONCE, Dosing Weight 84.091, kg, PRN Naus ea & Vomiting, Start date: 10/05/16 16:07:00 [employer]CRETE P[employer]KER Notes: (Same as: Zofran) MEDICATION WASTE Product Size: 4 mgProduct Was mary kate: ___ mg Start Date: 10/05/16 Stop Date: 10/05/16 Status: Discontinued ceFAZolin 2 gm, 100 mL, Route: IVPB, Drug form: INJ, PRE OP, Start date: 10/05/16 6:00:00 [employer]E P[employer], Duration: 1 doses or times, Stop date: 10/05/16 23:00:00 [employer]CRETE PIPE [employer]KER Notes: Same as: Ancef Start Date: 10/05/16 Stop Date: 10/05/16 Status: Completed celecoxib 200 mg, 2 cap, Route: PO, Drug form: CAP, [id number], Dosing Weight 84.091, kg, Sta rt date: 10/05/16 16:00:00 [employer]E P[employer], Duration: 30 day, Stop date: 11/04/16 4:00:00 CD T Notes: NSAID. Please check indication. Not for seizure. (Same As: CeleBREX) Start Date: 10/05/16 Stop Date: 10/09/16 Status: Discontinued Dextrose 50% Syringe 25 gm, 50 mL, Route: IVP, Drug Form: INJ, Dosing Weight 84.091, kg, PRN, PRN Blo od Glucose Results, Start date: 10/06/16 5:50:00 [employer]E [employer], Duration: 30 day, Stop yun e: 11/05/16 6:49:00 CDT Start Date: 10/06/16 Stop Date: 10/07/16 Status: Discontinued Dextrose 50% Syringe 12.5 gm, 25 mL, Route: IVP, Drug Form: INJ, Dosing Weight 84.091, kg, PRN, PRN B lood Glucose Results, Start date: 10/06/16 5:50:00 [employer]E [employer], Duration: 30 day, Stop d ate: 11/05/16 6:49:00 CDT Start Date: 10/06/16 Stop Date: 10/07/16 Status: Discontinued docusate sodium 100 mg oral capsule 100 mg, 1 cap, Route: PO, Drug form: CAP, BID, Dosing Weight 84.091, kg, Start d ate: 10/05/16 17:00:00 [employer]E [employer], Duration: 30 day, Stop date: 11/04/16 9:00:00 CDT Notes: (Same as: Colace) (Do Not Crush) Start Date: 10/05/16 Stop Date: 10/09/16 Status: Discontinued enoxaparin 40 mg, Route: SUB-Q, Drug form: INJ, [id number], Dosing Weight 84.091, kg, Start d ate: 10/05/16 15:00:00 [employer]E [employer], Duration: 30 day, Stop date: 11/03/16 15:00:00 CDT Start Date: 10/05/16 Stop Date: 10/05/16 Status: Deleted Flomax 0.4 mg, 1 cap, Route: PO, Drug form: CAP, After Breakfast, Dosing Weight 84.091, kg, Priority: NOW, Start date: 10/05/16 22:54:00 [employer]E [employer], Duration: 30 day, Stop da te: 11/04/16 8:30:00 CDT Notes: (Same As: Flomax) "Do Not Crush" Start Date: 10/05/16 Stop Date: 10/09/16 Status: Discontinued gabapentin 300 mg, 1 cap, Route: PO, Drug form: CAP, Q8Hnow, Dosing Weight 84.091, kg, Star t date: 10/05/16 16:00:00 [employer]E [employer], Duration: 30 day, Stop date: 11/04/16 8:00:00 CDT Notes: (Same as: Neurontin) Start Date: 10/05/16 Stop Date: 10/09/16 Status: Discontinued glucagon 1 mg, Route: IM, Drug form: PDR/INJ, PRN, Dosing Weight 84.091, kg, PRN Blood Gl ucose Results, Start date: 10/06/16 5:50:00 [employer]ETE P[employer], Duration: 30 day, Stop date: 6:49:00 CDT Start Date: 10/06/16 Stop Date: 10/07/16 Status: Discontinued heparin 5000 units/mL injectable solution 5,000 unit, 1 mL, Route: SUB-Q, Drug form: INJ, Q8H, Dosing Weight 84.091, kg, S tart date: 10/06/16 8:00:00 [employer]CRETE P[employer], Duration: 30 day, Stop date: 11/05/16 0:00:00 C DT Notes: porcine heparin Start Date: 10/06/16 Stop Date: 10/06/16 Status: Discontinued ibuprofen 400 mg oral tablet 400 mg=1 tab, PO, Q4H, PRN Pain, X 7 day, # 42 tab, 0 Refill(s) Start Date: 10/09/16 Stop Date: 10/16/16 Status: Ordered insulin aspart 1 unit, 0.01 mL, Route: SUB-Q, Drug form: SOLN, TID-Before Meals, Dosing Weight 84.091, kg, PRN Blood Glucose Results, Start date: 10/06/16 5:50:00 [employer]CRETE P[employer]KER, Duratio n: 30 day, Stop date: 11/05/16 5:49:00 CDT Notes: Roll in palms of hands gently; Do not shake vigorously. (Same as: Robin Acosta)"single patient use only"WASTE: F/P - Black; E - Municipal Trash Bin Stable f or 28 days at room temperature.Expires in days from Date Start Date: 10/06/16 Stop Date: 10/07/16 Status: Discontinued insulin aspart 2 unit, 0.02 mL, Route: SUB-Q, Drug form: SOLN, TID-Before Meals, Dosing Weight 84.091, kg, PRN Blood Glucose Results, Start date: 10/06/16 5:50:00 [employer]CRETE PIPE [employer]KER, Duratio n: 30 day, Stop date: 11/05/16 5:49:00 CDT Notes: Roll in palms of hands gently; Do not shake vigorously. (Same as: Robin Acosta)"single patient use only"WASTE: F/P - Black; E - Municipal Trash Bin Stable f or 28 days at room temperature.Expires in days from Date Start Date: 10/06/16 Stop Date: 10/07/16 Status: Discontinued insulin aspart 3 unit, 0.03 mL, Route: SUB-Q, Drug form: SOLN, TID-Before Meals, Dosing Weight 84.091, kg, PRN Blood Glucose Results, Start date: 10/06/16 5:50:00 CONCRETE PIPE [employer]KER, Duratio n: 30 day, Stop date: 11/05/16 5:49:00 CDT Notes: Roll in palms of hands gently; Do not shake vigorously. (Same as: Robin Acosta)"single patient use only"WASTE: F/P - Black; E - Municipal Trash Bin Stable f or 28 days at room temperature.Expires in days from Date Start Date: 10/06/16 Stop Date: 10/07/16 Status: Discontinued insulin aspart 4 unit, 0.04 mL, Route: SUB-Q, Drug form: SOLN, TID-Before Meals, Dosing Weight 84.091, kg, PRN Blood Glucose Results, Start date: 10/06/16 5:50:00 CONCRETE PIPE MAKER, Duratio n: 30 day, Stop date: 11/05/16 5:49:00 CDT Notes: Roll in palms of hands gently; Do not shake vigorously. (Same as: NovoLIAM Acosta)"single patient use only"WASTE: F/P - Black; E - Municipal Trash Bin Stable f or 28 days at room temperature.Expires in days from Date Start Date: 10/06/16 Stop Date: 10/07/16 Status: Discontinued insulin aspart 5 unit, 0.05 mL, Route: SUB-Q, Drug form: SOLN, TID-Before Meals, Dosing Weight 84.091, kg, PRN Blood Glucose Results, Start date: 10/06/16 5:50:00 CONCRETE PIPE MAKER, Duratio n: 30 day, Stop date: 11/05/16 5:49:00 CDT Notes: Roll in palms of hands gently; Do not shake vigorously. (Same as: Robin Acosta)"single patient use only"WASTE: F/P - Black; E - Municipal Trash Bin Stable f or 28 days at room temperature.Expires in days from Date Start Date: 10/06/16 Stop Date: 10/07/16 Status: Discontinued Isolyte S PH-7.4 (Bolus) IV 500 mL, 0 ml/hr, Route: IV, Drug Form: SOLN, Dosing Weight 84.091, kg, ONCE, Sta rt date: 10/06/16 5:51:00 CONCRETE PIPE MAKER, Stop date: 10/06/16 5:51:00 CONCRETE PIPE MAKER Notes: (Same as: Isolyte S PH7.4) Start Date: 10/06/16 Stop Date: 10/06/16 Status: Completed levothyroxine 75 microgram, 1 tab, Route: PO, Drug form: TAB, Daily, Dosing Weight 84.091, kg, Start date: 10/06/16 11:30:00 CONCRETE PIPE MAKER, Duration: 30 day, Stop date: 11/05/16 6:30:00 CDT Notes: Take 1 hour before or 2 hours after meal; Enteral feeds may interefere wi th the absorption of this medication. (Same as:Synthroid, Levothroid) Start Date: 10/06/16 Stop Date: 10/09/16 Status: Discontinued Lovenox 40 mg, 0.4 mL, Route: SUB-Q, Drug form: INJ, [id number], Dosing Weight 84.091, kg, Start date: 10/06/16 9:00:00 [employer]CRETE PIPE [employer]KER, Duration: 30 day, Stop date: 11/04/16 9:00:00 CDT Notes: (Same as: Lovenox) Start Date: 10/06/16 Stop Date: 10/06/16 Status: Discontinued melatonin 3 mg, 1 tab, Route: PO, Drug form: TAB, Bedtime, Dosing Weight 84.091, kg, PRN S leep, Start date: 10/07/16 23:46:00 CONCRETE PIPE [employer]KER, Duration: 30 day, Stop date: 11/06/16 2 3:45:00 CDT Notes: (Same as: Melatonin) Start Date: 10/07/16 Stop Date: 10/09/16 Status: Discontinued melatonin 3 mg oral tablet 3 mg=1 tab, PO, Bedtime, PRN Sleep, 0 Refill(s) Start Date: 10/09/16 Status: Ordered metoprolol tartrate 25 mg, 1 tab, Route: PO, Drug form: TAB, Q12H, Dosing Weight 84.091, kg, Start d ate: 10/06/16 9:00:00 [employer]CRETE PIPE [employer], Duration: 30 day, Stop date: 11/04/16 21:00:00 CDT Notes: (Same as: Lopressor) Start Date: 10/06/16 Stop Date: 10/09/16 Status: Discontinued Ofirmev 1,000 mg, 100 mL, Route: IV, Drug form: INJ, PRE OP, Start date: 10/05/16 6:00:0 0 [employer]CRETE PIPE [employer]KER, Duration: 1 doses or times, Stop date: 10/05/16 23:00:00 CONCRETE PIPE MAKER Notes: Infuse over 15 minutesDo not exceed 4gm/day of acetaminophen MEDICAT ION WASTE Product Size: 1000 mgProduct Wasted: ___ mg Start Date: 10/05/16 Stop Date: 10/09/16 Status: Completed omeprazole 20 mg, Route: PO, Drug form: DRC, Daily, Dosing Weight 84.091, kg, Start date: 0 10/06/16 9:00:00 [employer]CRETE PIPE [employer]KER, Duration: 30 day, Stop date: 11/04/16 9:00:00 CDT Start Date: 10/06/16 Stop Date: 10/06/16 Status: Deleted oxyCODONE 5 mg immediate release 10 mg, 2 tab, Route: PO, Drug form: TAB, Q4H, Dosing Weight 84.091, kg, PRN Pain Score 7-10, Start date: 10/05/16 16:00:00 CONCRETE PIPE [employer]KER, Duration: 30 day, Stop date: 15:59:00 CDT Notes: (Same as: Roxicodone) Start Date: 10/05/16 Stop Date: 10/06/16 Status: Discontinued oxyCODONE 5 mg immediate release 5 mg, 1 tab, Route: PO, Drug form: TAB, Q4H, Dosing Weight 84.091, kg, PRN Pain Score 4-6, Start date: 10/05/16 16:00:00 CONCRETE PIPE MAKER, Duration: 30 day, Stop date: 11/04 15:59:00 CDT Notes: (Same as: Roxicodone) Start Date: 10/05/16 Stop Date: 10/06/16 Status: Discontinued pantoprazole 40 mg, Route: PO, Drug form: ECTAB, Before Breakfast, Dosing Weight 84.091, kg, Start date: 10/07/16 7:30:00 CONCRETE PIPE MAKER, Duration: 30 day, Stop date: 11/05/16 7:30:00 CDT Start Date: 10/07/16 Stop Date: 10/06/16 Status: Canceled Plasma-Lyte A PH-7.4 1000 ml INJ 1,000 mL 1,000 mL, Rate: 100 ml/hr, Infuse over: 10 hr, Route: IV, Dosing Weight 84.091 k g, Total Volume: 1,000, Start date: 10/06/16 7:25:00 CONCRETE PIPE MAKER, Duration: 30 day, Stop date: 11/05/16 7:24:00 CDT Notes: WASTE: F/P - Sink; E - Municipal Trash Bin Start Date: 10/06/16 Stop Date: 10/07/16 Status: Discontinued Protonix 40 mg, 1 tab, Route: PO, Drug form: ECTAB, Daily, Start date: 10/06/16 11:30:00 CONCRETE PIPE MAKER, Duration: 30 day, Stop date: 11/05/16 7:30:00 CDT Notes: Tablet should not be chewed or crushed.(Same as: Protonix) Start Date: 10/06/16 Stop Date: 10/09/16 Status: Discontinued remove patch 1 patch, Route: TOP, Drug form: ERFILM, Q72H, Start date: 10/08/16 23:00:00 CONCRETE PIPE MAKER, Duration: 1 day, Stop date: 10/08/16 23:00:00 CONCRETE PIPE MAKER Notes: Remove old patch before application of new patch. Start Date: 10/08/16 Stop Date: 10/08/16 Status: Completed ropivacaine 0.2% 200ml CADD 200 mL Route: NERVE BLOCK, Continuous Rate: 10, ml/hr, Dosing Site: TAP Side: Left, SHORT ORDER FRY COOK dose 0 mL, 1 Hour limit: 10 mL, 200, mL, Start date: 10/05/16 15:58:00 CONCRETE PIPE MAKER, Drug Form: INJ, Total volume: 200, mL, kg, Stop date: 11/04/16 15:57:00 CDT Notes: Same as: Naropin Start Date: 10/05/16 Stop Date: 10/07/16 Status: Discontinued ropivacaine 0.2% 200ml CADD 200 mL Route: NERVE BLOCK, Continuous Rate: 10, ml/hr, Dosing Site: TAP Side: Right, 1 Hour limit: 10 mL, 200, mL, Start date: 10/05/16 15:58:00 CONCRETE PIPE MAKER, Drug Form: INJ, T otal volume: 200, mL, kg, Stop date: 11/04/16 15:57:00 CDT Notes: Same as: Naropin Start Date: 10/05/16 Stop Date: 10/07/16 Status: Discontinued scopolamine 1 patch, Route: TOP, Drug form: ERFILM, PRE OP, Start date: 10/05/16 6:00:00 CONCRETE PIPE MAKER , Duration: 1 doses or times, Stop date: 10/05/16 23:00:00 CONCRETE PIPE MAKER Notes: Change patch every 72 hours (Same as: Transderm-Scop) Start Date: 10/05/16 Stop Date: 10/05/16 Status: Completed sertraline 50 mg, 1 tab, Route: PO, Drug form: TAB, Daily, Dosing Weight 84.091, kg, Start date: 10/06/16 9:00:00 CONCRETE PIPE MAKER, Duration: 30 day, Stop date: 11/04/16 9:00:00 CDT Notes: (Same as: Zoloft) Start Date: 10/06/16 Stop Date: 10/09/16 Status: Discontinued tramadol 100 mg, 2 tab, Route: PO, Drug form: TAB, Q6Hnow, Dosing Weight 84.091, kg, Star t date: 10/05/16 16:00:00 CONCRETE PIPE MAKER, Duration: 30 day, Stop date: 11/04/16 10:00:00 CD T Notes: Not to exceed 400mg/day. (Same As: Ultram) Start Date: 10/05/16 Stop Date: 10/06/16 Status: Discontinued tramadol 50 mg oral tablet 50 mg=1 tab, PO, Q6H, PRN Pain, X 7 day, # 28 tab, 0 Refill(s) Start Date: 10/09/16 Stop Date: 10/16/16 Status: Ordered trazodone 50 mg, 1 tab, Route: PO, Drug form: TAB, ONCE, Dosing Weight 84.091, kg, Start d ate: 10/08/16 23:12:00 CONCRETE PIPE MAKER, Stop date: 10/08/16 23:12:00 CONCRETE PIPE MAKER, .. Notes: (Same As: Michelle) Start Date: 10/08/16 Stop Date: 10/08/16 Status: Completed trazodone 50 mg oral tablet 50 mg, 1 tab, Route: PO, Drug form: TAB, ONCE, Dosing Weight 84.091, kg, PRN Anx iety, Start date: 10/08/16 18:14:00 CONCRETE PIPE MAKER Notes: (Same As: Michelle) Start Date: 10/08/16 Stop Date: 10/08/16 Status: Completed Xarelto 20 mg, 1 tab, Route: PO, Drug form: TAB, QPM, Dosing Weight 84.091, kg, Start da te: 10/07/16 17:00:00 CONCRETE PIPE MAKER, Duration: 30 day, Stop date: 11/05/16 17:00:00 CDT Notes: (Same as: Xarelto)Administer with food Start Date: 10/07/16 Stop Date: 10/09/16 Status: Discontinued Results ELECTROLYTES 1 2 3 Most recent to oldest [Reference Range]: 135 mEq/L (10/09/16 4:03 AM) 133 mEq/L *LOW* (10/08/16 8:24 AM) 135 mEq/L (10/07/16 10:33 AM) Sodium Lvl [135-145 mEq/L] 4.4 mEq/L (10/09/16 4:03 AM) 4.0 mEq/L (10/08/16 8:24 AM) 4.5 mEq/L (10/07/16 10:33 AM) Potassium Lvl [3.5-5.1 mEq/L] 102 mEq/L (10/09/16 4:03 AM) 99 mEq/L (10/08/16 8:24 AM) 102 mEq/L (10/07/16 10:33 AM) Chloride Lvl [95-109 mEq/L] 25 mEq/L (10/09/16 4:03 AM) 25 mEq/L (10/08/16 8:24 AM) 26 mEq/L (10/07/16 10:33 AM) CO2 [24-32 mEq/L] 12.4 mEq/L (10/09/16 4:03 AM) 13.0 mEq/L (10/08/16 8:24 AM) 11.5 mEq/L (10/07/16 10:33 AM) AGAP [10.0-20.0 mEq/L] CHEM PANEL 1 2 3 Most recent to oldest [Reference Range]: 0.91 mg/dL (10/09/16 4:03 AM) 1.16 mg/dL (10/08/16 8:24 AM) 1.55 mg/dL *HI* (10/07/16 10:33 AM) Creatinine Lvl [0.50-1.40 mg/dL] 84 mL/min/1.73m2 1 *NA* (10/09/16 4:03 AM) 63 mL/min/1.73m2 2 *NA* (10/08/16 8:24 AM) 44 mL/min/1.73m2 3 *NA* (10/07/16 10:33 AM) eGFR 25 mg/dL *HI* (10/09/16 4:03 AM) 36 mg/dL *HI* (10/08/16 8:24 AM) 37 mg/dL *HI* (10/07/16 10:33 AM) BUN [7-22 mg/dL] 20 (10/05/16 6:47 AM) 16 (09/27/16 3:00 PM) B/C Ratio [6-25] 113 mg/dL *HI* (10/09/16 4:03 AM) 115 mg/dL *HI* (10/08/16 8:24 AM) 144 mg/dL *HI* (10/07/16 10:33 AM) Glucose Lvl [70-99 mg/dL] 7.6 g/dL (10/05/16 6:47 AM) 8.5 g/dL *HI* (09/27/16 3:00 PM) Total Protein [6.4-8.4 g/dL] 3.7 g/dL (10/05/16 6:47 AM) 4.5 g/dL (09/27/16 3:00 PM) Albumin Lvl [3.5-5.0 g/dL] 3.9 g/dL (10/05/16 6:47 AM) 4.0 g/dL (09/27/16 3:00 PM) Globulin [2.7-4.2 g/dL] 0.9 (10/05/16 6:47 AM) 1.1 (09/27/16 3:00 PM) A/G Ratio [0.7-1.6] 8.9 mg/dL (10/09/16 4:03 AM) 8.2 mg/dL *LOW* (10/08/16 8:24 AM) 8.1 mg/dL *LOW* (10/07/16 10:33 AM) Calcium Lvl [8.5-10.5 mg/dL] 28 unit/L (10/05/16 6:47 AM) 42 unit/L (09/27/16 3:00 PM) ALT [0-65 unit/L] 18 unit/L (10/05/16 6:47 AM) 28 unit/L (09/27/16 3:00 PM) AST [0-37 unit/L] 59 unit/L (10/05/16 6:47 AM) 72 unit/L (09/27/16 3:00 PM) Alk Phos [39-136 unit/L] 0.4 mg/dL (10/05/16 6:47 AM) 0.6 mg/dL (09/27/16 3:00 PM) Bili Total [0.2-1.3 mg/dL] 1Result Comment: The [...] be mul tiplied by the estimated BMI. HEMATOLOGY 1 2 3 Most recent to oldest [Reference Range]: 8.5 K/CMM (10/09/16 4:03 AM) 9.2 K/CMM (10/08/16 8:24 AM) 12.9 K/CMM *HI* (10/07/16 5:52 PM) WBC [3.7-10.4 K/CMM] 4.08 M/CMM *LOW* (10/09/16 4:03 AM) 4.07 M/CMM *LOW* (10/08/16 8:24 AM) 4.07 M/CMM *LOW* (10/07/16 5:52 PM) RBC [4.70-6.10 M/CMM] 12.3 g/dL *LOW* (10/09/16 4:03 AM) 12.2 g/dL *LOW* (10/08/16 8:24 AM) 11.8 g/dL *LOW* (10/07/16 5:52 PM) Hgb [14.0-18.0 g/dL] 36.6 % *LOW* (10/09/16 4:03 AM) 36.8 % *LOW* (10/08/16 8:24 AM) 37.0 % *LOW* (10/07/16 5:52 PM) Hct [42.0-54.0 %] 89.7 fL (10/09/16 4:03 AM) 90.4 fL (10/08/16 8:24 AM) 91.1 fL (10/07/16 5:52 PM) MCV [80.0-94.0 fL] 30.1 pg (10/09/16 4:03 AM) 29.9 pg (10/08/16 8:24 AM) 29.1 pg (10/07/16 5:52 PM) MCH [27.0-31.0 pg] 33.5 g/dL (10/09/16 4:03 AM) 33.1 g/dL (10/08/16 8:24 AM) 32.0 g/dL (10/07/16 5:52 PM) MCHC [32.0-36.0 g/dL] 16.0 % *HI* (10/09/16 4:03 AM) 16.2 % *HI* (10/08/16 8:24 AM) 16.2 % *HI* (10/07/16 5:52 PM) RDW [11.5-14.5 %] 153 K/CMM (10/09/16 4:03 AM) 120 K/CMM *LOW* (10/08/16 8:24 AM) 153 K/CMM (10/07/16 5:52 PM) Platelet [133-450 K/CMM] 8.6 fL (10/09/16 4:03 AM) 8.4 fL (10/08/16 8:24 AM) 8.8 fL (10/07/16 5:52 PM) MPV [7.4-10.4 fL] 80.4 % *HI* (10/08/16 8:24 AM) 79.4 % *HI* (10/07/16 10:33 AM) 85.2 % *HI* (10/06/16 4:35 AM) Segs [45.0-75.0 %] 10.3 % *LOW* (10/08/16 8:24 AM) 9.9 % *LOW* (10/07/16 10:33 AM) 6.0 % *LOW* (10/06/16 4:35 AM) Lymphocytes [20.0-40.0 %] 6.3 % (10/08/16 8:24 AM) 8.0 % (10/07/16 10:33 AM) 8.7 % (10/06/16 4:35 AM) Monocytes [2.0-12.0 %] 2.7 % (10/08/16 8:24 AM) 2.3 % (10/07/16 10:33 AM) 3.2 % (09/27/16 3:00 PM) Eosinophils [0.0-4.0 %] 0.3 % (10/08/16 8:24 AM) 0.4 % (10/07/16 10:33 AM) 0.1 % (10/06/16 4:35 AM) Basophils [0.0-1.0 %] 7.4 K/CMM (10/08/16 8:24 AM) 10.4 K/CMM *HI* (10/07/16 10:33 AM) 12.1 K/CMM *HI* (10/06/16 4:35 AM) Segs-Bands # [1.5-8.1 K/CMM] 1.0 K/CMM (10/08/16 8:24 AM) 1.3 K/CMM (10/07/16 10:33 AM) 0.8 K/CMM *LOW* (10/06/16 4:35 AM) Lymphocytes # [1.0-5.5 K/CMM] 0.6 K/CMM (10/08/16 8:24 AM) 1.0 K/CMM *HI* (10/07/16 10:33 AM) 1.2 K/CMM *HI* (10/06/16 4:35 AM) Monocytes # [0.0-0.8 K/CMM] 0.2 K/CMM (10/08/16 8:24 AM) 0.3 K/CMM (10/07/16 10:33 AM) 0.3 K/CMM (09/27/16 3:00 PM) Eosinophils # [0.0-0.5 K/CMM] 0.1 K/CMM (09/27/16 3:00 PM) Basophils # [0.0-0.2 K/CMM] 13.9 seconds (10/05/16 6:47 AM) 26.2 seconds *HI* (09/27/16 3:00 PM) PT [12.0-14.7 seconds] 1.05 (10/05/16 6:47 AM) 2.36 *HI* (09/27/16 3:00 PM) INR [0.85-1.17] 27.8 seconds (10/05/16 6:47 AM) 42.1 seconds *HI* (09/27/16 3:00 PM) PTT [22.9-35.8 seconds] 3.4 minutes *LOW* (10/05/16 6:47 AM) 10.2 minutes *HI* (09/27/16 3:25 PM) R-time [5.0-10.0 minutes] 1.5 minutes (10/05/16 6:47 AM) 2.8 minutes (09/27/16 3:25 PM) K-time [1.0-3.0 minutes] 69.9 degrees (10/05/16 6:47 AM) 55.6 degrees (09/27/16 3:25 PM) Angle [53.0-72.0 degrees] 54.9 mm (10/05/16 6:47 AM) 37.7 mm *LOW* (09/27/16 3:25 PM) Max Amp [50.0-70.0 mm] 6.1 K d/sc (10/05/16 6:47 AM) 3.0 K d/sc *LOW* (09/27/16 3:25 PM) G-value [4.5-11.0 K d/sc] 5.6 % (10/05/16 6:47 AM) 28.9 % *HI* (09/27/16 3:25 PM) Ly30 [0.0-7.5 %] 1.4 (10/05/16 6:47 AM) -6.6 *LOW* (09/27/16 3:25 PM) Coag Index [-3.0-3.0] Thrombelastograph results show shortened value of R. This finding is suggestive of enzymatic hypercoagulation. CPT:38820 *NA* (10/05/16 6:47 AM) Thrombelastograph results show prolonged value of R. This finding is suggestive of factor deficiency, or anticoagulants. In addition the MA is low which is suggestive of thrombocytopenia. The Ly30 is markedly high which is seen with fibrinolysis. Comment: The patient has prolonged PT and PTT values but does not have thrombocytopenia. Recommend repeat TEG with correlation with DIC screen, if clinically indicated. CPT:72048 *NA* (09/27/16 3:25 PM) TEG Interp See Note (10/05/16 6:47 AM) See Note (09/27/16 3:25 PM) TEG Data Immunizations No data available for this section Procedures Procedure Date Related Diagnosis Body Site Hernia repair 10/05/16 Bariatric operative procedure1 Colostomy Procedure2 Procedure3 1lap band 2colostomy take down 3colon perforation required hospitalization Social History Social History Type Response Substance Abuse Use: None. Alcohol Past, Type Beer. Frequency: Daily. Started age 68 Years. Alcohol use interferes with work or home: No. Drinks more than intended: No. Others hurt by drinking: No. Ready to change: Yes. Household alcohol concerns: Yes. Smoking Status Former smoker; Type: Cigarettes; Number of years: 32; Previous treatment: None; Exposure to Tobacco Smoke None; Cigarette Smoking Last 365 Days No; Reg Smoking Cessation Counseling No Assessment and Plan Extracted from: Title: Clinical Document Author: Jeanette Booth Date: 10/09/16 MD [facility] Progress Note Subjective: C/o shortness of breath with walking. No acute events overnight. Scheduled Meds (11): 10/06/16 9:00 AMIODarone 200 mg PO Daily [eMAR Schedule: (10/09/16) 09:00] [Future Dose: 10/10/16 09:00] 10/05/16 16:00 acetaminophen 1,000 mg PO Q6Hnow [Last Rescheduled Dt/Tm: 10/05/16 22:00:00 [employer]] [eMAR Schedule: (10/09/16) 04:00, 10:00, 16:00] 10/05/16 16:00 celecoxib 200 mg PO X78Prde [Last Rescheduled Dt/Tm: 10/06/16 4:00:00 [employer]] [eMAR Schedule: (10/09/16) 04:00, 16:00] 10/05/16 17:00 docusate (docusate sodium 100 mg oral capsule) 100 mg PO BID [eMAR Schedule: (10/09/16) 09:00, 17:00] 10/05/16 16:00 gabapentin 300 mg PO Q8Hnow [Last Rescheduled Dt/Tm: 10/06/16 0:00:00 [employer]] [eMAR Schedule: (10/09/16) 00:00, 08:00, 16:00] 10/06/16 11:30 levothyroxine 75 microgram PO Daily [Last Rescheduled Dt/Tm: 10/06/16 11:30:00 [employer]] [eMAR Schedule: (10/09/16) 06:30] [Future Dose: 10/10/16 06:30] 10/06/16 9:00 metoprolol (metoprolol tartrate) 25 mg PO Q12H [eMAR Schedule: (10/09/16) 09:00] [Future Dose: 10/09/16 21:00] 10/06/16 11:30 pantoprazole (Protonix) 40 mg PO Daily [eMAR Schedule: (10/09/16) 07:30] [Future Dose: 10/10/16 07:30] 10/07/16 17:00 rivaroxaban (Xarelto) 20 mg PO QPM [eMAR Schedule: (10/09/16) 17:00] [Future Dose: 10/10/16 17:00] 10/06/16 9:00 sertraline 50 mg PO Daily [eMAR Schedule: (10/09/16) 09:00] [Future Dose: 10/10/16 09:00] 10/05/16 22:54 tamsulosin (Flomax) 0.4 mg PO After Breakfast [Last Rescheduled Dt/Tm: 10/06/16 8:30:00 [employer]] [eMAR Schedule: (10/09/16) 08:30] [Future Dose: 10/10/16 08:30] Unscheduled Meds: None PRN Meds (1): 10/07/16 23:46 melatonin 3 mg PO Bedtime One Time Meds (1): 10/08/16 23:12 (Completed) trazodone 50 mg PO ONCE Continuous Infusions: None Objective: Vitals and Temp: VitalsTmp(F)FgahkNAEMGjR5DZP2 10/09 07:2798.655539/604448 2.0L/m 10/09 04:34----68590/80--97 1.0L/m 10/09 04:1597.139580/756039 1.0L/m 10/08 23:3497.353597/130197 1.0L/m 10/08 21:14 96--- 24 Hr Tmax: 98.0F (36.67c) at 10/09 07:27Vital Signs are the last 5 in the past 48 hours. Physical Exam Gen: NAD Pulm: nonlabored respirations CV: regular rate and rhythm Abd: soft, appropriately TTP, incision c/d/i. PERRY drain with serosanguinous output. 24hr Labs 10/09 0403 Glucose Iji343 H BUN25 H Creatinine Lvl0.91 Sodium Giu269 Potassium Lvl4.4 Chloride Mrv769 CO225 AGAP12.4 Calcium Lvl8.9 eGFR84 WBC8.5 RBC4.08 L Hgb12.3 L Hct36.6 L MCV89.7 MCH30.1 MCHC33.5 RDW16.0 H Wpspaekh576 MPV8.6 10/08 0824 Glucose Hzg942 H BUN36 H Creatinine Lvl1.16 Sodium Pdk867 L Potassium Lvl4.0 Chloride Lvl99 CO225 AGAP13.0 Calcium Lvl8.2 L eGFR63 WBC9.2 RBC4.07 L Hgb12.2 L Hct36.8 L MCV90.4 MCH29.9 MCHC33.1 RDW16.2 H Ycbbngbj903 L MPV8.4 Segs80.4 H Monocytes6.3 Yxoapdqmget88.3 L Eosinophils2.7 Basophils0.3 Segs-Bands #7.4 Lymphocytes #1.0 Monocytes #0.6 Eosinophils #0.2 Assessment/Plan: Pt. is a 71 year old male with PMH of afib on Xarelto and perforated diverticulitis s/p Humera's with subsequent colostomy takedown who developed multiple ventral incisional hernias now s/p open VIHR 10/05. s/p open VIHR - Remains afebrile, VSS - Leukocytosis resolved - Tolerating regular diet, passing flatus, +BM - Abdominal pain well controlled on current regimen- APMS signed off. - PERRY output 305 ml, serosanguinous - Encourage ambulation with help. PT on board - pending clearance before discharge - Encourage IS use. Wean from nasal cannula. Confusion - Resolved - Limit narcotic use Urinary retention - Resolved, harry 10/07. Able to void spontaneously - On Flomax LOIS - Resolved, Cr 0.91 - UOP adequate History of Afib - On telemetry - Home amiodarone, metoprolol and Xarelto resumed Ppx: Lovenox subQ Dispo - continue current care. Anticipate d/c once off supplemental O2 and cleared by PT Extracted from: Title: APMS Consult Note Author: Javan Harrell DO Date: 10/05/16 Impression and Plan Diagnosis Orders Education and Follow-up: Counseled: Regarding treatment, Regarding medications. 71M w/ bowel obstruction s/p open ventral hernia repair 2. Start -Acetaminophen 1g q68h -Tramadol 100mg q6h -Gabapentin 300mg q8h -Celecoxib 200mg q12h -Oxycodone 5/10mg prn APMS will follow. Please call [phone] with questions.
--- OUTSIDE RECORDS SUMMARY | 2018-10-04 04:21 | XMS REPORT | Summary of Care ---
Author Author [facility]ISE [facility] [facility] Organization [facility] Address Unknown Phone Unavailable Encounter LAUREN Renee(GERARDO) [phone] Date(s): 08/15/17 - 08/16/17 [facility] [address], [address] [place], [place] [address] [phone] Vital Signs No data available for this [...]
--- OUTSIDE RECORDS SUMMARY | 2018-10-04 04:21 | XMS REPORT | Summary of Care ---
Author Author [facility] [place] Organization [facility] [place] Address Unknown Phone Unavailable Encounter LAUREN Renee(FIN) [phone] Date(s): 01/17/17 - 01/17/17 [facility] [place] [address] [place] [phone]- [phone] Discharge Disposition: Home or Self Care Attending Physician: Tracy Arce MD Vital Signs No data available for [...] History Type Response Substance Abuse Use: None. Employment/School Status: Retired. Highest education level: High [...] Smoking Cessation Counseling No Assessment and Plan No data available for this section
--- OUTSIDE RECORDS SUMMARY | 2018-10-04 04:21 | XMS REPORT | Summary of Care ---
Author Author [facility] [place] Organization [facility] [place] Address Unknown Phone Unavailable Encounter HQ Thelma(GERARDO) [id number] Date(s): 08/30/17 - 08/30/17 [facility] [place] [address] [place], [place] [address] [phone] Encounter Diagnosis Traumatic subdural hemorrhage with loss of consciousness of unspecified duration , initial encounter (Final) - 09/03/17 Discharge Disposition: Home or Self Care Attending Physician: Brad Lopez MD Vital Signs No data available for [...]
--- OUTSIDE RECORDS SUMMARY | 2018-10-04 04:21 | XMS REPORT | Summary of Care ---
Author Author DENISE [facility]surgery [facility] Organization [facility] Address Unknown Phone Unavailable Encounter LAUREN Renee(FIN) [id number] Date(s): 08/29/17 - 08/30/17 [facility] [address] [facility] [address] [address] [facility], [address] [phone] Vital Signs No [...]
--- OUTSIDE RECORDS SUMMARY | 2018-10-04 04:21 | XMS REPORT | Summary of Care ---
Author Author [facility] Organization [facility] Address Unknown Phone Unavailable Encounter LAUREN Renee(GERARDO) [id number] Date(s): 09/04/18 - 09/06/18 [facility] [address] [place] [address]- Encounter Diagnosis Peritonitis, unspecified (Final) - Discharge Disposition: Home or Self Care Attending Physician: Iman Acharya MD Admitting Physician: Iman Acharya MD Vital Signs 1 2 3 Most recent to oldest [Reference Range]: 162.56 cm (09/04/18 2:12 PM) Height 97.6 DegF (09/06/18 11:47 AM) 97.8 DegF (09/06/18 7:58 AM) 98.6 DegF (09/06/18 4:00 AM) Temperature Oral [96.4-99.1 DegF] 128/77 mmHg (09/06/18 11:47 AM) 114/65 mmHg (09/06/18 7:58 AM) 126/82 mmHg (09/06/18 4:00 AM) Blood Pressure [90-140/60-90 mmHg] 18 BRMIN (09/06/18 11:47 AM) 18 BRMIN (09/06/18 7:58 AM) 18 BRMIN (09/06/18 7:58 AM) Respiratory Rate [14-20 BRMIN] 79 bpm (09/06/18 11:47 AM) 80 bpm (09/06/18 7:58 AM) 76 bpm (09/06/18 4:00 AM) Peripheral Pulse Rate [60-100 bpm] 105.966 kg (09/04/18 2:12 PM) Weight 40.1 m2 (09/04/18 2:12 PM) Body Mass Index Problem List Condition [...] Substance Reaction Severity Status Bactrim Active Medications ATTN RN please bring pt home med to pharmacy to be labeled ATTN RN please bring pt home med to pharmacy to be labeled, ATTN RN, Drug form: MISC, Route: MISC, QSHIFT, 09/05/18 0:00:00 CLINICAL STATISTICAL PROGRAMMER, Duration: 30 day, Stop da te: 10/04/18 16:00:00 CLINICAL STATISTICAL PROGRAMMER Start Date: 09/05/18 Stop Date: 09/06/18 Status: Discontinued *RN-DO NOT give 21:00 vanc on 09/06 till trough drawn *RN-DO NOT give 21:00 vanc on 09/06 till trough drawn, Attn:RN, Drug form: IA SC, Route: MISC, ONCE, 09/06/18 20:00:00 CLINICAL STATISTICAL PROGRAMMER, Stop date: 09/06/18 20:00:00 CLINICAL STATISTICAL PROGRAMMER Start Date: 09/06/18 Stop Date: 09/06/18 Status: Canceled acetaminophen 650 mg, 2 tab, Route: PO, Drug form: TAB, Q6H, Dosing Weight 102.273, kg, PRN Fo r Temp > 100.4 F, Start date: 09/03/18 14:32:00 CLINICAL STATISTICAL PROGRAMMER, Duration: 30 day, Stop date: 10/03/18 14:31:00 CLINICAL STATISTICAL PROGRAMMER Notes: Do not exceed 4 gm/day. (Same as: Tylenol) Start Date: 09/03/18 Stop Date: 09/06/18 Status: Discontinued acetaminophen 650 mg, Route: PO, Drug form: TAB, Q6H, Dosing Weight 102.273, kg, PRN For Temp > 100.4 F, Start date: 09/03/18 14:28:00 CLINICAL STATISTICAL PROGRAMMER, Duration: 30 day, Stop date: 10/03/18 14:27:00 CLINICAL STATISTICAL PROGRAMMER Start Date: 09/03/18 Stop Date: 09/04/18 Status: Discontinued albuterol 2.5 mg, 3.01 mL, Route: NEB, Drug form: SOLN, RQ6H, Start date: 09/04/18 20:00:0 0 CLINICAL STATISTICAL PROGRAMMER, Duration: 30 day, Stop date: 10/04/18 14:00:00 CLINICAL STATISTICAL PROGRAMMER Notes: SEE RT DOCUMENTATION (Same as: Proventil) Start Date: 09/04/18 Stop Date: 09/06/18 Status: Discontinued albuterol 2.5 mg, 3.01 mL, Route: NEB, Drug form: SOLN, RQ6H, PRN Wheezing, Start date: 18:16:00 CLINICAL STATISTICAL PROGRAMMER, Duration: 30 day, Stop date: 10/04/18 18:15:00 CLINICAL STATISTICAL PROGRAMMER Notes: SEE RT DOCUMENTATION (Same as: Elisatil) Start Date: 09/04/18 Stop Date: 09/06/18 Status: Discontinued bisacodyl 10 mg, 1 supp, Route: ME, Drug form: SUPP, Daily, Dosing Weight 102.273, kg, PRN Constipation, Start date: 09/03/18 14:32:00 CLINICAL STATISTICAL PROGRAMMER, Duration: 30 day, Stop date: 0 10/03/18 14:31:00 CLINICAL STATISTICAL PROGRAMMER Notes: (Same As: Dulcolax, Bisco-Lax) Start Date: 09/03/18 Stop Date: 09/06/18 Status: Discontinued bisacodyl 10 mg, Route: ME, Daily, Dosing Weight 102.273, kg, PRN Constipation, Start date : 09/03/18 14:28:00 CLINICAL STATISTICAL PROGRAMMER, Duration: 30 day, Stop date: 10/03/18 14:27:00 CLINICAL STATISTICAL PROGRAMMER Start Date: 09/03/18 Stop Date: 09/04/18 Status: Discontinued carbidopa-levodopa 50 mg-200 mg oral tablet, extended release 1 tab, Route: PO, Drug Form: ERTAB, Dosing Weight 105.966, kg, BID, Start date: 09/05/18 9:00:00 CLINICAL STATISTICAL PROGRAMMER, Duration: 30 day, Stop date: 10/04/18 17:00:00 CLINICAL STATISTICAL PROGRAMMER Notes: "Do Not Crush" Take with milk or food. (Same As: Sinemet CR) Start Date: 09/05/18 Stop Date: 09/06/18 Status: Discontinued cefepime + Sodium Chloride 0.9% IV 100 mL 1 gm, Route: IVPB, [id number], Dosing Weight 105.966, kg, (CrCl 30 - 49 ml/min), St art date: 09/04/18 18:00:00 CLINICAL STATISTICAL PROGRAMMER, Duration: 10 day, Stop date: 09/14/18 6:00:[address], ABX Indication: Intra-abdominal Infection Notes: (Same As: Maxipime) MEDICATION WASTE Product Size: 1000 mgProduc t Wasted: ___ mg Start Date: 09/04/18 Stop Date: 09/04/18 Status: Discontinued cefepime + Sodium Chloride 0.9% IV 100 mL 1 gm, Route: IVPB, [id number], Dosing Weight 105.966, kg, (CrCl >/=50 ml/min), Start date: 09/05/18 2:00:00 CLINICAL STATISTICAL PROGRAMMER, Duration: 7 day, Stop date: 09/11/18 18:00:00 CLINICAL STATISTICAL PROGRAMMER, ABX Indication: Skin/Soft Tissue Infection Notes: (Same As: Maxipime) MEDICATION WASTE Product Size: 1000 mgProduc t Wasted: ___ mg Start Date: 09/05/18 Stop Date: 09/06/18 Status: Discontinued cefepime 1 g injection 1 gm, IV, Q8H, X 6 week, # 126 bag, 0 Refill(s), given to patient Start Date: 09/06/18 Stop Date: 10/18/18 Status: Ordered Dextrose 50% Syringe 12.5 gm, 25 mL, Route: IVP, Drug Form: INJ, Dosing Weight 102.273, kg, PRN, PRN Blood Glucose Results, Start date: 09/03/18 14:32:00 CLINICAL STATISTICAL PROGRAMMER, Duration: 30 day, Stop date: 10/03/18 14:31:00 CLINICAL STATISTICAL PROGRAMMER Start Date: 09/03/18 Stop Date: 09/06/18 Status: Discontinued Dextrose 50% Syringe 25 gm, 50 mL, Route: IVP, Drug Form: INJ, Dosing Weight 102.273, kg, PRN, PRN Bl ood Glucose Results, Start date: 09/03/18 14:32:00 CLINICAL STATISTICAL PROGRAMMER, Duration: 30 day, Stop d ate: 10/03/18 14:31:00 CLINICAL STATISTICAL PROGRAMMER Start Date: 09/03/18 Stop Date: 09/06/18 Status: Discontinued Dextrose 50% Syringe 50 mL, Route: IVP, Dosing Weight 102.273, kg, PRN, PRN Blood Glucose Results, art date: 09/03/18 14:28:00 CLINICAL STATISTICAL PROGRAMMER, Duration: 30 day, Stop date: 10/03/18 14:27:00 CLINICAL STATISTICAL PROGRAMMER Start Date: 09/03/18 Stop Date: 09/04/18 Status: Discontinued Dextrose 50% Syringe 25 mL, Route: IVP, Dosing Weight 102.273, kg, PRN, PRN Blood Glucose Results, art date: 09/03/18 14:28:00 CLINICAL STATISTICAL PROGRAMMER, Duration: 30 day, Stop date: 10/03/18 14:27:00 CLINICAL STATISTICAL PROGRAMMER Start Date: 09/03/18 Stop Date: 09/04/18 Status: Discontinued diphenhydrAMINE 25 mg, 1 tab, Route: PO, Drug form: TAB, Q6H, Dosing Weight 102.273, kg, PRN as needed for allergy symptoms, Start date: 09/03/18 14:32:00 CLINICAL STATISTICAL PROGRAMMER, Duration: 30 day , Stop date: 10/03/18 14:31:00 CLINICAL STATISTICAL PROGRAMMER Start Date: 09/03/18 Stop Date: 09/06/18 Status: Discontinued diphenhydrAMINE 25 mg, Route: PO, Q6H, Dosing Weight 102.273, kg, PRN as needed for allergy symp toms, Start date: 09/03/18 14:28:00 CLINICAL STATISTICAL PROGRAMMER, Duration: 30 day, Stop date: 10/03/18 1 4:27:00 CLINICAL STATISTICAL PROGRAMMER Start Date: 09/03/18 Stop Date: 09/04/18 Status: Discontinued gabapentin 600 mg oral tablet 600 mg, 2 cap, Route: PO, Drug form: CAP, Q6H, Dosing Weight 105.966, kg, Start date: 09/05/18 0:00:00 CLINICAL STATISTICAL PROGRAMMER, Duration: 30 day, Stop date: 10/04/18 18:00:00 CLINICAL STATISTICAL PROGRAMMER Notes: (Same as: Neurontin) Start Date: 09/05/18 Stop Date: 09/06/18 Status: Discontinued glucagon 1 mg, Route: IM, Drug form: PDR/INJ, PRN, Dosing Weight 102.273, kg, PRN Blood G lucose Results, Start date: 09/03/18 14:32:00 CLINICAL STATISTICAL PROGRAMMER, Duration: 30 day, Stop date: 10/03/18 14:31:00 CLINICAL STATISTICAL PROGRAMMER Start Date: 09/03/18 Stop Date: 09/06/18 Status: Discontinued glucagon 1 mg, Route: IM, PRN, Dosing Weight 102.273, kg, PRN Blood Glucose Results, Star t date: 09/03/18 14:28:00 CLINICAL STATISTICAL PROGRAMMER, Duration: 30 day, Stop date: 10/03/18 14:27:00 CS T Start Date: 09/03/18 Stop Date: 09/04/18 Status: Discontinued hydrALAZINE 10 mg, 0.5 mL, Route: IVP, Drug form: INJ, Q4H, Dosing Weight 102.273, kg, PRN H ypertension, Priority: Routine, Start date: 09/03/18 14:32:00 CLINICAL STATISTICAL PROGRAMMER, Duration: 30 day, Stop date: 10/03/18 14:31:00 CLINICAL STATISTICAL PROGRAMMER Notes: (Same as: Apresoline)Push over 5 minutes Start Date: 09/03/18 Stop Date: 09/06/18 Status: Discontinued hydrALAZINE 10 mg, Route: IVP, Q4H, Dosing Weight 102.273, kg, PRN Hypertension, Priority: R outine, Start date: 09/03/18 14:28:00 CLINICAL STATISTICAL PROGRAMMER, Duration: 30 day, Stop date: 10/03/18 14:27:00 CLINICAL STATISTICAL PROGRAMMER Start Date: 09/03/18 Stop Date: 09/04/18 Status: Discontinued levothyroxine 125 microgram, 1 tab, Route: PO, Drug form: TAB, QAM, Dosing Weight 105.966, kg, Start date: 09/05/18 9:00:00 CLINICAL STATISTICAL PROGRAMMER, Duration: 30 day, Stop date: 10/04/18 9:00:00 CLINICAL STATISTICAL PROGRAMMER Notes: Take 1 hour before or 2 hours after meal; Enteral feeds may interefere wi th the absorption of this medication. (Same as:Levothroid) Start Date: 09/05/18 Stop Date: 09/06/18 Status: Discontinued magnesium citrate 1.745 g/30 mL oral liquid 300 ml, Route: PO, Drug Form: LIQ, Dosing Weight 102.273, kg, ONCE, PRN Constipa tion, Start date: 09/03/18 14:32:00 CLINICAL STATISTICAL PROGRAMMER Notes: (Same as: Citrate of Magnesia)Concentration: 1.745 gm / 30 mL Start Date: 09/03/18 Stop Date: 09/06/18 Status: Discontinued magnesium citrate 1.745 g/30 mL oral liquid 300 ml, Route: PO, Dosing Weight 102.273, kg, ONCE, PRN Constipation, Start date : 09/03/18 14:28:00 CLINICAL STATISTICAL PROGRAMMER Start Date: 09/03/18 Stop Date: 09/04/18 Status: Discontinued melatonin 3 mg, 1 tab, Route: PO, Drug form: TAB, Bedtime, Dosing Weight 102.273, kg, PRN Insomnia, Start date: 09/03/18 14:32:00 CLINICAL STATISTICAL PROGRAMMER, Duration: 30 day, Stop date: 14:31:00 CLINICAL STATISTICAL PROGRAMMER Notes: (Same as: Melatonin) Start Date: 09/03/18 Stop Date: 09/06/18 Status: Discontinued melatonin 3 mg, Route: PO, Bedtime, Dosing Weight 102.273, kg, PRN Insomnia, Start date: 0 09/03/18 14:28:00 CLINICAL STATISTICAL PROGRAMMER, Duration: 30 day, Stop date: 10/03/18 14:27:00 CLINICAL STATISTICAL PROGRAMMER Start Date: 09/03/18 Stop Date: 09/04/18 Status: Discontinued morphine Sulfate 2 mg, 1 mL, Route: IVP, Drug form: SOLN, Q4H, Dosing Weight 102.273, kg, PRN [place] Score 7-10, Start date: 09/03/18 14:32:00 CLINICAL STATISTICAL PROGRAMMER, Duration: 30 day, Stop date: 14:31:00 CLINICAL STATISTICAL PROGRAMMER Start Date: 09/03/18 Stop Date: 09/06/18 Status: Discontinued morphine Sulfate 2 mg, Route: IVP, Q4H, Dosing Weight 102.273, kg, PRN Pain Score 7-10, Start yun e: 09/03/18 14:28:00 CLINICAL STATISTICAL PROGRAMMER, Duration: 30 day, Stop date: 10/03/18 14:27:00 CLINICAL STATISTICAL PROGRAMMER Start Date: 09/03/18 Stop Date: 09/04/18 Status: Discontinued nicotine 21 mg, 1 patch, Route: TOP, Drug form: ERFILM, Daily, Dosing Weight 102.273, kg, PRN as needed for smoking cessation, Start date: 09/03/18 14:32:00 CLINICAL STATISTICAL PROGRAMMER, Duratio n: 30 day, Stop date: 10/03/18 14:31:00 CLINICAL STATISTICAL PROGRAMMER Notes: (Same as: Habitrol)"Remove old patch before application of new patch"WAST E: F/P - P Waste Black; E - P Waste Black Start Date: 09/03/18 Stop Date: 09/06/18 Status: Discontinued nicotine 21 mg, Route: TOP, Drug form: ERFILM, Daily, Dosing Weight 102.273, kg, PRN as n eeded for smoking cessation, Start date: 09/03/18 14:28:00 CLINICAL STATISTICAL PROGRAMMER, Duration: 30 day , Stop date: 10/03/18 14:27:00 CLINICAL STATISTICAL PROGRAMMER Start Date: 09/03/18 Stop Date: 09/04/18 Status: Discontinued [place] 10/325 oral tablet 1 tab, PO, Q6H, PRN for pain, # 24 tab, 0 Refill(s) Start Date: 09/04/18 Stop Date: 09/10/18 Status: Ordered [place] 5/325 oral tablet 1 tab, Route: PO, Drug Form: TAB, Dosing Weight 102.273, kg, Q6H, PRN Pain Score 1-3, Start date: 09/03/18 14:32:00 CLINICAL STATISTICAL PROGRAMMER, Duration: 30 day, Stop date: 10/03/18 1 4:31:00 CLINICAL STATISTICAL PROGRAMMER Notes: (Same as: [place] 325/5) Do not exceed 4gm/day of acetaminophen. Start Date: 09/03/18 Stop Date: 09/06/18 Status: Discontinued [place] 5/325 oral tablet 1 tab, Route: PO, Drug Form: TAB, Dosing Weight 102.273, kg, Q6H, PRN Pain Score 1-3, Start date: 09/03/18 14:28:00 CLINICAL STATISTICAL PROGRAMMER, Duration: 30 day, Stop date: 10/03/18 1 4:27:00 CLINICAL STATISTICAL PROGRAMMER Start Date: 09/03/18 Stop Date: 09/04/18 Status: Discontinued NS 1,000 mL 1,000 mL, Rate: 75 ml/hr, Infuse over: 13.3 hr, Route: IV, Dosing Weight 105.966 kg, Total Volume: 1,000, Start date: 09/04/18 19:15:00 CLINICAL STATISTICAL PROGRAMMER, Duration: 30 day, S top date: 10/04/18 19:14:00 CLINICAL STATISTICAL PROGRAMMER, 2.22, m2 Start Date: 09/04/18 Stop Date: 09/05/18 Status: Discontinued Omnipaque 300 injectable solution 100 mL, Route: IVP, Drug Form: SOLN, Dosing Weight 105.966, kg, ONCALL, GFR > 45 mL/min, Start date: 09/04/18 16:00:00 CLINICAL STATISTICAL PROGRAMMER, Duration: 1 doses or times Notes: (Same as:Omnipaque 300).WASTE: F/P - Black; E - Municipal Trash Bin Start Date: 09/04/18 Stop Date: 09/06/18 Status: Discontinued ondansetron 4 mg, 2 mL, Route: IVP, Drug form: INJ, Q6H, Dosing Weight 102.273, kg, PRN Naus ea & Vomiting, Start date: 09/03/18 14:32:00 CLINICAL STATISTICAL PROGRAMMER, Duration: 30 day, Stop date: 10/03/18 14:31:00 CLINICAL STATISTICAL PROGRAMMER Notes: (Same as: Agapito) MEDICATION WASTE Product Size: 4 mgProduct Was mary kate: ___ mg Start Date: 09/03/18 Stop Date: 09/06/18 Status: Discontinued ondansetron 4 mg, Route: IVP, Q6H, Dosing Weight 102.273, kg, PRN Nausea & Vomiting, Start date: 09/03/18 14:28:00 CLINICAL STATISTICAL PROGRAMMER, Duration: 30 day, Stop date: 10/03/18 14:27:00 CLINICAL STATISTICAL PROGRAMMER Start Date: 09/03/18 Stop Date: 09/04/18 Status: Discontinued pantoprazole 40 mg, 1 tab, Route: PO, Drug form: ECTAB, Daily, Dosing Weight 105.966, kg, Sta rt date: 09/05/18 9:00:00 CLINICAL STATISTICAL PROGRAMMER, Duration: 30 day, Stop date: 10/04/18 9:00:00 CLINICAL STATISTICAL PROGRAMMER Notes: Tablet should not be chewed or crushed.(Same as: Protonix) Start Date: 09/05/18 Stop Date: 09/06/18 Status: Discontinued polyethylene glycol 3350 17 gm, 1 pkt, Route: PO, Drug form: PWDR, Daily, Dosing Weight 102.273, kg, PRN Constipation, Start date: 09/03/18 14:32:00 CLINICAL STATISTICAL PROGRAMMER, Duration: 30 day, Stop date: 14:31:00 CLINICAL STATISTICAL PROGRAMMER Notes: Dissolve in 8 oz of water or juice.(Same as: Miralax) Start Date: 09/03/18 Stop Date: 09/06/18 Status: Discontinued polyethylene glycol 3350 17 gm, Route: PO, Daily, Dosing Weight 102.273, kg, PRN Constipation, Start date : 09/03/18 14:28:00 CLINICAL STATISTICAL PROGRAMMER, Duration: 30 day, Stop date: 10/03/18 14:27:00 CLINICAL STATISTICAL PROGRAMMER Start Date: 09/03/18 Stop Date: 09/04/18 Status: Discontinued ProAir HFA 90 mcg/inh inhalation aerosol with adapter 180 microgram, 2 puff, Route: INHALER, Drug Form: AERO/A, Dosing Weight 105.966, kg, Q6H, PRN, Start date: 09/04/18 17:34:00 CLINICAL STATISTICAL PROGRAMMER, Duration: 30 day, Stop date: 0 10/04/18 17:33:00 CLINICAL STATISTICAL PROGRAMMER, asthma Start Date: 09/04/18 Stop Date: 09/04/18 Status: Deleted Pulmicort Respules 0.5 mg, 2 mL, Route: NEB, Drug form: SUSP, RBID, Start date: 09/04/18 20:00:[address], Duration: 30 day, Stop date: 10/04/18 8:00:00 CLINICAL STATISTICAL PROGRAMMER Notes: (Same As: Pulmicort) Start Date: 09/04/18 Stop Date: 09/06/18 Status: Discontinued SEROquel 25 mg, 1 tab, Route: PO, Drug form: TAB, BID, Dosing Weight 102.273, kg, PRN Marisol tation, Start date: 09/03/18 14:32:00 CLINICAL STATISTICAL PROGRAMMER, Duration: 30 day, Stop date: 10/03/18 14:31:00 CLINICAL STATISTICAL PROGRAMMER Notes: (Same as: SEROquel) Start Date: 09/03/18 Stop Date: 09/06/18 Status: Discontinued SEROquel 25 mg, Route: PO, BID, Dosing Weight 102.273, kg, PRN Agitation, Start date: 14:28:00 CLINICAL STATISTICAL PROGRAMMER, Duration: 30 day, Stop date: 10/03/18 14:27:00 CLINICAL STATISTICAL PROGRAMMER Start Date: 09/03/18 Stop Date: 09/04/18 Status: Discontinued sertraline 100 mg, 1 tab, Route: PO, Drug form: TAB, Bedtime, Dosing Weight 105.966, kg, St art date: 09/04/18 21:00:00 CLINICAL STATISTICAL PROGRAMMER, Duration: 30 day, Stop date: 10/03/18 21:00:00 CLINICAL STATISTICAL PROGRAMMER Notes: (Same as: Zoloft) Start Date: 09/04/18 Stop Date: 09/06/18 Status: Discontinued Symbicort 160/4.5 inhalation aerosol with adapter 2 puff, Route: INHALATION, Drug Form: AERO/A, Dosing Weight 105.966, kg, BID, St art date: 09/05/18 9:00:00 CLINICAL STATISTICAL PROGRAMMER, Duration: 30 day, Stop date: 10/04/18 17:00:[address] Start Date: 09/05/18 Stop Date: 09/04/18 Status: Deleted torsemide 20 mg, 1 tab, Route: PO, Drug form: TAB, Daily, Dosing Weight 105.966, kg, Start date: 09/05/18 9:00:00 CLINICAL STATISTICAL PROGRAMMER, Duration: 30 day, Stop date: 10/04/18 9:00:00 CLINICAL STATISTICAL PROGRAMMER Notes: (Same As: Demadex) Start Date: 09/05/18 Stop Date: 09/06/18 Status: Discontinued tramadol 50 mg oral tablet 50 mg, 1 tab, Route: PO, Drug form: TAB, Q6H, Dosing Weight 105.966, kg, PRN [place] Score 7-10, Start date: 09/04/18 17:34:00 CLINICAL STATISTICAL PROGRAMMER, Duration: 30 day, Stop date: 17:33:00 CLINICAL STATISTICAL PROGRAMMER Notes: Not to exceed 400mg/day. (Same As: Ultram) Start Date: 09/04/18 Stop Date: 09/06/18 Status: Discontinued trazodone 50 mg, 1 tab, Route: PO, Drug form: TAB, Bedtime, Dosing Weight 102.273, kg, PRN Insomnia, Start date: 09/03/18 14:32:00 CLINICAL STATISTICAL PROGRAMMER, Duration: 30 day, Stop date: 10/03 14:31:00 CLINICAL STATISTICAL PROGRAMMER Notes: (Same As: Desyrel) Start Date: 09/03/18 Stop Date: 09/06/18 Status: Discontinued trazodone 50 mg, Route: PO, Bedtime, Dosing Weight 102.273, kg, PRN Insomnia, Start date: 09/03/18 14:28:00 CLINICAL STATISTICAL PROGRAMMER, Duration: 30 day, Stop date: 10/03/18 14:27:00 CLINICAL STATISTICAL PROGRAMMER Start Date: 09/03/18 Stop Date: 09/04/18 Status: Discontinued triamcinolone 0.1% mucous membrane paste 1 appl, PO, TID, # 5 gm, 0 Refill(s) Start Date: 09/04/18 Status: Ordered valsartan 80 mg, 1 tab, Route: PO, Drug form: TAB, BID, Dosing Weight 105.966, kg, Start d ate: 09/05/18 9:00:00 CLINICAL STATISTICAL PROGRAMMER, Duration: 30 day, Stop date: 10/04/18 17:00:00 CLINICAL STATISTICAL PROGRAMMER Notes: Same as Diovan Start Date: 09/05/18 Stop Date: 09/06/18 Status: Discontinued vancomycin 1,000 mg, Route: IVPB, Drug form: INJ, [id number], Dosing Weight 105.966, kg, Start date: 09/04/18 18:00:00 CLINICAL STATISTICAL PROGRAMMER, Duration: 10 day, Stop date: 09/14/18 6:00:00 CLINICAL STATISTICAL PROGRAMMER, ABX Indication: Intra-abdominal Infection Start Date: 09/04/18 Stop Date: 09/04/18 Status: Discontinued vancomycin 1.5 gm, Route: IVPB, Drug form: INJ, [id number], Dosing Weight 105.966, kg, Start d ate: 09/04/18 20:00:00 CLINICAL STATISTICAL PROGRAMMER, Duration: 7 day, Stop date: 09/11/18 8:00:00 CLINICAL STATISTICAL PROGRAMMER, AB X Indication: Skin/Soft Tissue Infection Start Date: 09/04/18 Stop Date: 09/04/18 Status: Canceled vancomycin + Sodium Chloride 0.9% IV 250 mL 1,250 mg, Route: IVPB, [id number], Start date: 09/04/18 20:00:00 CLINICAL STATISTICAL PROGRAMMER, Duration: 7 d ay, Stop date: 09/10/18 21:00:00 CLINICAL STATISTICAL PROGRAMMER, ABX Indication: Intra-abdominal Infection Notes: TIME CRITICAL MEDICATION(Same As: Vancocin)Infusion rate< 1000 mg: infuse over 1 [id number] - 1500 mg: infuse over 1.5 [id number] - 2000 mg: infuse over 2 hours> 2001 mg: infuse over 2.5 hoursFor adult patients only: Round to nearest 250 mg per Medical Staff approval MEDICATION WASTE Product Size: 1000 mgProduct Wasted: ___ mg Start Date: 09/04/18 Stop Date: 09/06/18 Status: Discontinued vancomycin 1.25 g/150 mL-NaCl 0.9% intravenous solution 1.25 gm, IV, Q24H, X 6 week, # 42 bag, 0 Refill(s), given to patient Start Date: 09/06/18 Stop Date: 10/18/18 Status: Ordered Vancomycin Pharmacy Dosing 1 ea, Route: MISC, ONCALL, Dosing Weight 105.966, kg, Start date: 09/04/18 20:00 :00 CLINICAL STATISTICAL PROGRAMMER, Duration: 7 day, Stop date: 09/11/18 19:59:00 CLINICAL STATISTICAL PROGRAMMER, Pharmacy to dose, AB X Indication: Skin/Soft Tissue Infection Start Date: 09/04/18 Stop Date: 09/04/18 Status: Deleted Veltassa 8.4 gm, Route: PO, Drug form: PDR/REC, Daily, Dosing Weight 105.966, kg, Start d ate: 09/05/18 9:00:00 CLINICAL STATISTICAL PROGRAMMER, Duration: 30 day, Stop date: 10/04/18 9:00:00 CLINICAL STATISTICAL PROGRAMMER Start Date: 09/05/18 Stop Date: 09/06/18 Status: Discontinued Xarelto 20 mg, 1 tab, Route: PO, Drug form: TAB, QPM, Dosing Weight 105.966, kg, Start d ate: 09/05/18 17:00:00 CLINICAL STATISTICAL PROGRAMMER, Duration: 30 day, Stop date: 10/04/18 17:00:00 CLINICAL STATISTICAL PROGRAMMER Notes: (Same as: Xarelto)Administer with food Start Date: 09/05/18 Stop Date: 09/06/18 Status: Discontinued Results ELECTROLYTES 1 2 3 Most recent to oldest [Reference Range]: 143 mEq/L (09/06/18 5:15 AM) 136 mEq/L (09/05/18 6:28 AM) 141 mEq/L (09/04/18 4:44 PM) Sodium Lvl [135-145 mEq/L] 4.4 mEq/L (09/06/18 5:15 AM) 4.2 mEq/L (09/05/18 6:28 AM) 4.6 mEq/L (09/04/18 4:44 PM) Potassium Lvl [3.5-5.1 mEq/L] 109 mEq/L (09/06/18 5:15 AM) 105 mEq/L (09/05/18 6:28 AM) 106 mEq/L (09/04/18 4:44 PM) Chloride Lvl [95-109 mEq/L] 25 mEq/L (09/06/18 5:15 AM) 27 mEq/L (09/05/18 6:28 AM) 24 mEq/L (09/04/18 4:44 PM) CO2 [24-32 mEq/L] 13.4 mEq/L (09/06/18 5:15 AM) 8.2 mEq/L *LOW* (09/05/18 6:28 AM) 15.6 mEq/L (09/04/18 4:44 PM) AGAP [10.0-20.0 mEq/L] CHEM PANEL 1 2 3 Most recent to oldest [Reference Range]: 1.31 mg/dL (09/06/18 5:15 AM) 1.26 mg/dL (09/05/18 6:28 AM) 1.38 mg/dL (09/04/18 4:44 PM) Creatinine Lvl [0.50-1.40 mg/dL] 54 mL/min/1.73m2 1 *NA* (09/06/18 5:15 AM) 56 mL/min/1.73m2 2 *NA* (09/05/18 6:28 AM) 50 mL/min/1.73m2 3 *NA* (09/04/18 4:44 PM) eGFR 28 mg/dL *HI* (09/06/18 5:15 AM) 28 mg/dL *HI* (09/05/18 6:28 AM) 32 mg/dL *HI* (09/04/18 4:44 PM) BUN [7-22 mg/dL] 21 (09/06/18 5:15 AM) 22 (09/05/18 6:28 AM) 23 (09/04/18 4:44 PM) B/C Ratio [6-25] 119 mg/dL *HI* (09/06/18 5:15 AM) 102 mg/dL *HI* (09/05/18 6:28 AM) 99 mg/dL (09/04/18 4:44 PM) Glucose Lvl [70-99 mg/dL] 7.7 g/dL (09/06/18 5:15 AM) 7.4 g/dL (09/05/18 6:28 AM) 8.2 g/dL (09/04/18 4:44 PM) Total Protein [6.4-8.4 g/dL] 3.2 g/dL *LOW* (09/06/18 5:15 AM) 3.2 g/dL *LOW* (09/05/18 6:28 AM) 3.5 g/dL (09/04/18 4:44 PM) Albumin Lvl [3.5-5.0 g/dL] 4.5 g/dL *HI* (09/06/18 5:15 AM) 4.2 g/dL (09/05/18 6:28 AM) 4.7 g/dL *HI* (09/04/18 4:44 PM) Globulin [2.7-4.2 g/dL] 0.7 (09/06/18 5:15 AM) 0.8 (09/05/18 6:28 AM) 0.7 (09/04/18 4:44 PM) A/G Ratio [0.7-1.6] 8.6 mg/dL (09/06/18 5:15 AM) 8.3 mg/dL *LOW* (09/05/18 6:28 AM) 8.9 mg/dL (09/04/18 4:44 PM) Calcium Lvl [8.5-10.5 mg/dL] 3.7 mg/dL (09/06/18 5:15 AM) 3.5 mg/dL (09/05/18 6:28 AM) Phosphorus [2.5-4.5 mg/dL] 2.4 mg/dL (09/06/18 5:15 AM) 2.5 mg/dL *HI* (09/05/18 6:28 AM) Magnesium Lvl [1.8-2.4 mg/dL] 14 unit/L (09/06/18 5:15 AM) 16 unit/L (09/05/18 6:28 AM) 7 unit/L (09/04/18 4:44 PM) ALT [0-65 unit/L] 15 unit/L (09/06/18 5:15 AM) 16 unit/L (09/05/18 6:28 AM) 17 unit/L (09/04/18 4:44 PM) AST [0-37 unit/L] 77 unit/L (09/06/18 5:15 AM) 74 unit/L (09/05/18 6:28 AM) 79 unit/L (09/04/18 4:44 PM) Alk Phos [39-136 unit/L] 0.3 mg/dL (09/06/18 5:15 AM) 0.4 mg/dL (09/05/18 6:28 AM) 0.4 mg/dL (09/04/18 4:44 PM) Bili Total [0.2-1.3 mg/dL] 1.9 mMol/L (09/04/18 6:07 PM) Lactic Acid Lvl [0.5-2.2 mMol/L] 1Result Comment: The eGFR is calculated using [...] be mul tiplied by the estimated BMI. LIPIDS 1 2 3 Most recent to oldest [Reference Range]: 3.10 *LOW* (09/05/18 6:28 AM) CHD Risk [4.00-7.30] 155 mg/dL (09/05/18 6:28 AM) Chol [<=199 mg/dL] 53 mg/dL (09/05/18 6:28 AM) Trig [<=149 mg/dL] 50 mg/dL *LOW* (09/05/18 6:28 AM) HDL [>=61 mg/dL] 94 mg/dL (09/05/18 6:28 AM) LDL (Calculated) [<=99 mg/dL] 11 *NA* (09/05/18 6:28 AM) VLDL SPECIAL CHEMISTRY 1 2 3 Most recent to oldest [Reference Range]: 5.5 % (09/05/18 6:28 AM) Hgb A1C [<=5.6 %] HEMATOLOGY 1 2 3 Most recent to oldest [Reference Range]: 10.7 K/CMM *HI* (09/06/18 5:15 AM) 9.6 K/CMM (09/05/18 6:28 AM) 11.0 K/CMM *HI* (09/04/18 4:44 PM) WBC [3.7-10.4 K/CMM] 4.25 M/CMM *LOW* (09/06/18 5:15 AM) 4.08 M/CMM *LOW* (09/05/18 6:28 AM) 4.59 M/CMM *LOW* (09/04/18 4:44 PM) RBC [4.70-6.10 M/CMM] 10.8 g/dL *LOW* (09/06/18 5:15 AM) 10.2 g/dL *LOW* (09/05/18 6:28 AM) 11.9 g/dL *LOW* (09/04/18 4:44 PM) Hgb [14.0-18.0 g/dL] 33.0 % *LOW* (09/06/18 5:15 AM) 31.6 % *LOW* (09/05/18 6:28 AM) 36.0 % *LOW* (09/04/18 4:44 PM) Hct [42.0-54.0 %] 77.7 fL *LOW* (09/06/18 5:15 AM) 77.5 fL *LOW* (09/05/18 6:28 AM) 78.4 fL *LOW* (09/04/18 4:44 PM) MCV [80.0-94.0 fL] 25.4 pg *LOW* (09/06/18 5:15 AM) 25.1 pg *LOW* (09/05/18 6:28 AM) 25.9 pg *LOW* (09/04/18 4:44 PM) MCH [27.0-31.0 pg] 32.7 g/dL (09/06/18 5:15 AM) 32.3 g/dL (09/05/18 6:28 AM) 33.0 g/dL (09/04/18 4:44 PM) MCHC [32.0-36.0 g/dL] 17.4 % *HI* (09/06/18 5:15 AM) 16.9 % *HI* (09/05/18 6:28 AM) 17.5 % *HI* (09/04/18 4:44 PM) RDW [11.5-14.5 %] 7.6 fL (09/06/18 5:15 AM) 7.6 fL (09/05/18 6:28 AM) 7.5 fL (09/04/18 4:44 PM) MPV [7.4-10.4 fL] 286 K/CMM (09/06/18 5:15 AM) 253 K/CMM (09/05/18 6:28 AM) 241 K/CMM (09/04/18 4:44 PM) Platelet [133-450 K/CMM] 73.1 % (09/06/18 5:15 AM) 65.0 % (09/05/18 6:28 AM) Segs [45.0-75.0 %] 16.0 % *LOW* (09/06/18 5:15 AM) 21.0 % (09/05/18 6:28 AM) Lymphocytes [20.0-40.0 %] 6.6 % (09/06/18 5:15 AM) 10.1 % (09/05/18 6:28 AM) Monocytes [2.0-12.0 %] 3.3 % (09/06/18 5:15 AM) 3.2 % (09/05/18 6:28 AM) Eosinophils [0.0-4.0 %] 1.0 % (09/06/18 5:15 AM) 0.7 % (09/05/18 6:28 AM) Basophils [0.0-1.0 %] 7.8 K/CMM (09/06/18 5:15 AM) 6.3 K/CMM (09/05/18 6:28 AM) Neutrophils # [1.5-8.1 K/CMM] 1.7 K/CMM (09/06/18 5:15 AM) 2.0 K/CMM (09/05/18 6:28 AM) Lymphocytes # [1.0-5.5 K/CMM] 0.7 K/CMM (09/06/18 5:15 AM) 1.0 K/CMM *HI* (09/05/18 6:28 AM) Monocytes # [0.0-0.8 K/CMM] 0.3 K/CMM (09/06/18 5:15 AM) 0.3 K/CMM (09/05/18 6:28 AM) Eosinophils # [0.0-0.5 K/CMM] 0.1 K/CMM (09/06/18 5:15 AM) 0.1 K/CMM (09/05/18 6:28 AM) Basophils # [0.0-0.2 K/CMM] 1+ *ABN* (09/06/18 5:15 AM) 1+ *ABN* (09/05/18 6:28 AM) Microcyte [None Seen] Immunizations No data available for this section [...] 1PT USES CHEWING TOBACCO Assessment and Plan Extracted from: Title: Surgery Staff Author: Aye Rubio MD Date: 09/06/18 Surgery Staff Progress Note Aye Rbuio M.D. cc: abdominal wound SUBJECTIVE: AFVSS overnight. On IV antibiotics. CT showed abscess cavity where wound vac was in-place at the time of imaging. No evidence of continuation of this cavity posterior to rectus muscles where mesh is on my review of cross section images which is consistent with palpation of the boundaries of the wound on exam. Dr. Acharya removed vac and has changed patient to wet to dry dressings for now. OBJECTIVE: Physical Exam: gen - NAD cor - reg rate pulm - equal chest rise B abd - wet to dry dressings removed and repacked by me, wound with fibrinous debris throughout ext - warm to touch VitalsTmp(F)[id number] 09/06 11:[id number]--- 09/06 07:[id number]/825523 21% 09/06 04:[id number]--- 09/06 00:[id number]/[id number]--- 09/05 20:[id number]--- 24 Hr Tmax: 98.8F (37.11c) at 09/05 20:00Vital Signs are the last 5 in the past 48 hours. I&ORecordInOutBal 08/2523hr Tot 102 0 102 08/2423hr Tot 1318 5 1313 Labs (Last four charted values) WBC H 10.7(SEP 06)9.6(SEP 05)H 11.0(SEP 04) Hgb L 10.8(SEP 06)L 10.2(SEP 05)L 11.9(SEP 04) Hct L 33.0(SEP 06)L 31.6(SEP 05)L 36.0(SEP 04) Plt 286(SEP 06)253(SEP 05)241(SEP 04) Na 143(SEP 06)136(SEP 05)141(SEP 04) K 4.4(SEP 06)4.2(SEP 05)4.6(SEP 04) CO2 25(SEP 06)27(SEP 05)24(SEP 04) Cl 109(SEP 06)105(SEP 05)106(SEP 04) Cr 1.31(SEP 06)1.26(SEP 05)1.38(SEP 04) BUN H 28(SEP 06)H 28(SEP 05)H 32(SEP 04) Glucose Random H 119(SEP 06)H 102(SEP 05)99(SEP 04) Mg 2.4(SEP 06)H 2.5(SEP 05) Phos 3.7(SEP 06)3.5(SEP 05) Ca 8.6(SEP 06)L 8.3(SEP 05)8.9(SEP 04) ASSESSMENT: 73 year old gentleman with complex surgical history presents with abdominal wound s/p incision and drainage of abdominal wall abscess Jul 2018. PLAN: 1. Dr. Acharya will have the patient continue wet to dry dressing changes at home until he sees her and Dr. Fabien Siddiqui (his surgeon) in clinic next week. Tentative plan is to discharge patient home today with home health or patient's doing the dressing changes. Dr. Javan Gray will be covering for [place] . to 2.08.31. If patient needs any further surgical attention/recs while admitted at [facility], please contact him. Extracted from: Title: Surgery Staff Author: Aye Rubio MD Date: 09/04/18 CONSULTATION AYE RUBIO MD CC: abdominal wound HPI: 73 year old gentleman with complex surgical history including retrorectus hernia repair with mesh, removal of Lap Band and port, recent incision and drainage of abdominal wound with placement of VAC 07/25/18. Since that surgery, patient has had outpatient follow up with Dr. Fabien Siddiqui with surgery as well as Dr. Acharya with wound care. He was sent for admission to [facility] today after recent wound culture grew out MRSA and he was referred to Infectious Disease for further workup. Patient currently AFVSS with no abdominal pain. PMH: 1. morbid obesity s/p Lap Band placement/removal 2. htn 3. hypothyroid 4. afib 5. Parkinson's 6. CKD 7. GERD PSH: as per above FAM HISTORY: non contributory SOCIAL HISTORY: no tobacco + ETOH lives with MEDICATIONS: please see chart ALLERGIES: bactrim ROS: negative x 14 systems (constitutional, eyes, ENT, CV, respiratory, GI, , MSK, neuro, psych, endocrine, heme/lymph, allergic, skin/breast) EXCEPT per HPI EXAM: VitalsTmp(F)[id number] 09/05 08:08 1495 21% 09/05 07:[id number]--- 09/05 04:[id number]--- 09/05 00:[id number]--- 09/04 20:[id number]--- 24 Hr Tmax: 99.1F (37.28c) at 09/04 20:32Vital Signs are the last 5 in the past 48 hours. I&ORecordInOutBal 08/2323hr Tot 2371 686 9705 08/2223hr Tot 0 0 0 GENERAL/CONSTITUTIONAL - NAD HEENT - NCAT, PERRA, EOMI, nasopharynx clear, throat clear NECK - midline PULMONARY - CTAB CARDIOVASCULAR - reg rate GI - soft, nontender, nondistended, no rebound, no guarding, VAC intact to continuous suction but visible black sponge doesn't appear optimally taut as there is some laxity with overlying VAC drape MSK - KAM with appropriate muscle tone PSYCH - appropriate mood/affect SKIN/LYMPHATICS - normal skin tone Labs (Last four charted values) WBC 9.6(SEP 05)H 11.0(SEP 04) Hgb L 10.2(SEP 05)L 11.9(SEP 04) Hct L 31.6(SEP 05)L 36.0(SEP 04) Plt 253(SEP 05)241(SEP 04) Na 136(SEP 05)141(SEP 04) K 4.2(SEP 05)4.6(SEP 04) CO2 27(SEP 05)24(SEP 04) Cl 105(SEP 05)106(SEP 04) Cr 1.26(SEP 05)1.38(SEP 04) BUN H 28(SEP 05)H 32(SEP 04) Glucose Random H 102(SEP 05)99(SEP 04) Mg H 2.5(SEP 05) Phos 3.5(SEP 05) Ca L 8.3(SEP 05)8.9(SEP 04) ASSESSMENT: 73 year old gentleman with complex surgical history presents with abdominal wound s/p incision and drainage of abdominal wall wound with VAC placement Jul 2018. PLAN: 1. Will take down VAC dressing tomorrow AM to assess wound when canvas goods fabricator available with replacement VAC supplies. 2. Further recs pending above. Discussed with patient and . All questions answered. Extracted from: Title: General Admission H&P * Author: Hannah Izaguirre MD Date: 09/04/18 Impression and Plan 1. Abdominal wound infection with MRSA 2. History of lap band infection 3. Parkinson's disease 4. Hypothyroidism 5. Atrial fibrillation Plan: Wound care and ID consulted, wound VAC CT abdomen pelvis with IV contrast, PICC line placement, IV vancomycin and cefepime Resume carbidopa levodopa Rate control medications, hold Xarelto for PICC line PT/OT eval SCDs for now holding Xarelto for PICC line placement, will resume after PICC line has been placed We will transfer service to Dr. kline in a.m.
--- OUTSIDE RECORDS SUMMARY | 2018-10-04 04:22 | XMS REPORT | Summary of Care ---
Author Author [facility] Organization [facility] Address Unknown Phone Unavailable Encounter LAUREN Renee(GERARDO) [id number] Date(s): 02/08/17 - 02/08/17 [facility] [address] [place] [address] [phone] Discharge Disposition: Home or Self Care Attending Physician: Fabien Siddiqui MD Referring Physician: Fabien Siddiqui MD Vital Signs 1 2 3 Most recent to oldest [Reference Range]: 167.64 cm (02/08/17 7:08 AM) Height 133/74 mmHg (02/08/17 11:45 AM) 130/68 mmHg (02/08/17 11:30 AM) 127/69 mmHg (02/08/17 11:15 AM) Blood Pressure [90-140/60-90 mmHg] 15 BRMIN (02/08/17 11:45 AM) 23 BRMIN *HI* (02/08/17 11:30 AM) 17 BRMIN (02/08/17 11:15 AM) Respiratory Rate [14-20 BRMIN] 90.909 kg (02/08/17 7:08 AM) Weight 32.35 m2 (02/08/17 7:08 AM) Body Mass Index Problem List Condition Effective Dates Status Health Status Informant Atrial Resolved fibrillation(Confirm ed) CKD (chronic kidney Resolved disease) stage 3, GFR 30-59 ml/min(Confirmed) Facial Resolved neuropathy(Confirmed ) GERD Resolved (gastroesophageal reflux disease)(Confirmed) HTN Resolved (hypertension)(Confi rmed) Hypothyroid(Confirme Resolved d) Incisional Resolved hernia(Confirmed) Obesity(Confirmed) Active Allergies, Adverse Reactions, Alerts Substance Reaction Severity Status NKDA Active Medications fentaNYL 50 microgram, Route: IV, ONCE, Dosing Weight 90.909, kg, Start date: 02/08/17 9: 20:00 CDT, Stop date: 02/08/17 9:20:00 CDT, Start Date: 02/08/17 Stop Date: 02/08/17 Status: Completed fentaNYL 25 microgram, Route: IV, ONCE, Dosing Weight 90.909, kg, Start date: 02/08/17 10 :30:00 CDT, Stop date: 02/08/17 10:30:00 CDT, Start Date: 02/08/17 Stop Date: 02/08/17 Status: Completed fentaNYL 25 microgram, Route: IV, ONCE, Dosing Weight 90.909, kg, Start date: 02/08/17 10 :00:00 CDT, Stop date: 02/08/17 10:00:00 CDT, Start Date: 02/08/17 Stop Date: 02/08/17 Status: Completed Versed 0.5 mg, Route: IV, ONCE, Dosing Weight 90.909, kg, Start date: 02/08/17 10:30:00 CDT, Stop date: 02/08/17 10:30:00 CDT Start Date: 02/08/17 Stop Date: 02/08/17 Status: Completed Versed 1 mg, Route: IV, ONCE, Dosing Weight 90.909, kg, Start date: 02/08/17 9:20:00 CD T, Stop date: 02/08/17 9:20:00 CDT Start Date: 02/08/17 Stop Date: 02/08/17 Status: Completed Versed 0.5 mg, Route: IV, ONCE, Dosing Weight 90.909, kg, Start date: 02/08/17 10:00:00 CDT, Stop date: 02/08/17 10:00:00 CDT Start Date: 02/08/17 Stop Date: 02/08/17 Status: Completed Results No data available for this section [...] No Assessment and Plan Extracted from: Title: IR H&P Author: Pritesh Boogie MD Date: 02/08/17 Interventional Radiology History and Physical History of Present Illness: 71 yo man with hx/o lap band placed 2002, has simple fluid collection, likely seroma, in the anterior abdominal wall surrounding the lap band hub. No prior drainage procedure has been performed. Past Medical History: Atrial fibrillation Hypothyroid GERD (gastroesophageal reflux disease) HTN (hypertension) Incisional hernia CKD (chronic kidney disease) stage 3, GFR 30-59 ml/min Facial neuropathy Surgical History: Hernia repair: 10/05/16 Procedure Procedure Colostomy Bariatric operative procedure Social History: Employment/School Details: Status: Retired. Highest education level: High school. Alcohol Details: Past, Type Beer. Frequency: Daily. Started age 68 Years. Alcohol use interferes with work or home: No. Drinks more than intended: No. Others hurt by drinking: No. Ready to change: Yes. Household alcohol concerns: Yes. Tobacco Details: Use: Former smoker. Type: Cigarettes. 32 year(s). Previous treatment: None. Tobacco smoke exposure: None. Did the Patient Smoke Cigarettes Anytime During the Last 365 Days? No. Cessation Counseling Provided? No. Substance Abuse Details: Use: None. Family History: Father: Congestive heart failure Mother: [place] - Cancer of colon Sister: [place] - Breast cancer Grandparent: Stroke Sister: [place] - Breast cancer Uncle: [place] - Cancer of colon Allergies Reviewed Allergies: NKDA Current Meds: Xarelto, last dose yesterday Gabapentin Imaging Studies: most recent CT A/P reviewed Labs: (no lab data in past 24 hours) Review of Systems: Constitutional: no fever, no chills, no fatigue HEENT: no headache, no blurred vision, no sore throat Cardiovascular: no chest pain, no SOB, no orthopnea Respiratory: same as CVS, no cough, no hemoptysis Gastrointestinal: no abdominal pain Genitourinary: no dysuria, no frequency, no urgency Musculoskeletal: no myalgia Integumentary: no rash or open wound Neurological: no seizure, no dizziness Psychiatric: no anxiety and/or depression Endocrine: no polyuria, no polydipsia Hematologic/lymphatic: no bleeding, no bruising, no swelling Physical Examination: Gen: AAO x3, NAD, WNWD VitalsTmp(F)[id number] (no data in last 48 hours) 24 Hr Tmax: No Data AvailableVital Signs are the last 5 in the past 48 hours. HEENT: normocephalic, PERRL, no drainage, moist mucous NECK: supple, no JVD Respiratory: clear to auscultation bilaterally CV: RRR, no murmurs, rubs, or gallops Abdomen: soft, non-tender, non-distended, BS present, soft palpable mass corresponding to locationof seroma on CT Extrem: no edema Neuro: cranial nerve grossly intact Skin: clear, no rashes or jaundice Impression/plan: Dr. Siddiqui is in the OR this morning and could not be reched this morning to discuss options for treatment. Dr. Sood spoke by phone with his BRAND MANAGER, who knows this patient well. Our plan will be to fully aspirate this collection today but not leave a drain at this time out of concern for increased risk of infection that would compromise the indwelling lap band. If the fluid reaccumulates, we will be happy to see the patient back for drain placement. THANK YOU FOR CONSULTING [facility]TEVENTIONAL RADIOLOGY. IF YOU HAVE QUESTIONS, PLEASE CALL [phone].
--- OUTSIDE RECORDS SUMMARY | 2018-10-04 04:22 | XMS REPORT ---
Author Author [facility] Address Unknown Phone Unavailable Care Team Providers Care Chronic Disease Manager Name Role Phone TANMAY DIAZ Unavailable Unavailable JUSTIN VALENZUELA Unavailable Unavailable VAISHALI GARCIA Unavailable Unavailable SWEET, A LAIRD Unavailable Unavailable Dave PINZON Unavailable Unavailable Problems This patient has no known problems. Allergies, Adverse Reactions, Alerts This patient has no known allergies or adverse reactions. Medications This patient has no known medications. Results Test Description Test Time Test Comments Text Results Atomic Results Result Comments MRI SPINE THORACIC WO 2018-06-03 17:01:00 [place] [address] Patient Name: SIMON ORDAZ MR #: [id number] : 1945 Age/Sex: 73/M Req #: [id number] Adm Physician: Ordered by: TANMAY DIAZ MD Report #: [id number] Location: MRI Room/Bed: Procedure: [id number] MRI/MRI SPINE THORACIC WO Exam Date: Exam Time: REPORT STATUS: Signed History:Right mid back pain Comparison studies: X-ray of the [facility] spine 2017 Technique: Sagittal T1, T2 and STIR without contrast; axial and coronal T2. Findings: Curvature: Normal kyphosis. No scoliosis. Paraspinal soft tissues: No signal abnormalities. Incidentally noted 1.0 cm epididymal inclusion cyst at the right paracentral mid back. Spinal cord: Normal in size and signal intensity through the tip of the conus at T12-L1 . Vertebrae: Normal in height and signal intensity. No fractures, infection or neoplasm. Disk spaces: Diffuse disc degeneration with low T2 signal and decreased intervertebral space. Disk herniations: None. Foramina: Patent. Spinal canal: Patent. IMPRESSION: 1. No acute abnormality. 2. Mild to moderate disc degeneration throughout the thoracic spine with patent canal and foramina Signed by: DR Raz Bills M.D. on 06/03/2018 5:12 PM Dictated By: RAZ CAMPOS MD 11 Transcribed By: JONI on 06/03/181711 COPY TO: TANMAY DIAZ MD THORACIC SP 3V 2018-05-21 17:07:00 [place] [address] Patient Name: SIMON ORDAZ MR #: [id number] : 1945 Age/Sex: 73/M Req #: [id number] Adm Physician: Ordered by: TANMAY DIAZ MD Report #: [id number] Location: [facility] Room/Bed: Procedure: [id number] DX/THORACIC SP 3V Exam Date: 05/21/18 Exam Time: 1610 REPORT STATUS: Signed Exam: Thoracic spine 2 views History: Back pain Comparison: None. Findings: No fracture or malalignment. Multilevel degenerative disc disease with narrowing and endplate change. No abnormal soft tissue calcification or soft tissue defect. Impression: No acute osseous abnormality Moderate multilevel thoracic spondylosis Signed by: Dr. Tesfaye Saini M.D. on 05/21/2018 5:12 PM Dictated By: TESFAYE SAINI MD 11 Transcribed By: JONI on 05/21/181711 COPY TO: TANMAY DIAZ MD RAD, CHEST, 2 VIEWS 2017-12-24 10:33:00 Reason for Exam:->Paroxysmal atrial fibrillation [I48.0] FINAL REPORT HISTORY : Paroxysmal atrial fibrillation [...] No significant interval change. Signed: Andrade Edwards MDReport Verified Date/Time: 12/24/2017 10:33:32 Reading Location: [address] Radiology Reading Room D PANEL 2017-12-24 10:25:00 TRIGLYCERIDES (BEAKER) (test pehw=824) 73 mg/dL CHOLESTEROL (BEAKER) (test rxrn=894) 214 mg/dL HDL CHOLESTEROL (BEAKER) (test wdnu=266) 56 mg/dL LDL CHOLESTEROL CALCULATED (BEAKER) (test hwxv=709) 143 mg/dL Triglyceride Reference Range: Low Risk <150 Borderline 150-199 High Risk 200-499 Very High Risk >=500Cholesterol Reference Range: Low Risk <200 Borderline 200-239 High Risk >240HDL Cholesterol Reference Range: Low Risk >=60 High Risk <40LDL Cholesterol Reference Range: Optimal <100 Near Optimal 100-129 Borderline 130-159 High 160-189 Very High >=190 COMPREHENSIVE METABOLIC [id number] 10:25:00* Test Item Value Reference Range Comments TOTAL PROTEIN (BEAKER) (test lrls=396) 8.4 gm/dL 6.0-8.3 ALBUMIN (BEAKER) (test eonh=2808) 4.2 g/dL 3.5-5.0 ALKALINE PHOSPHATASE (BEAKER) (test rqdr=041) 77 U/L 40-150 BILIRUBIN TOTAL (BEAKER) (test jxdw=126) 0.5 mg/dL 0.2-1.2 SODIUM (BEAKER) (test dccu=511) 141 meq/L 136-145 POTASSIUM (BEAKER) (test tvht=067) 5.4 meq/L 3.5-5.1 CHLORIDE (BEAKER) (test tjtz=067) 101 meq/L 98-107 CO2 (BEAKER) (test llce=452) 27 meq/L 22-29 BLOOD UREA NITROGEN (BEAKER) (test cuwz=285) 30 mg/dL 7-21 CREATININE (BEAKER) (test mnqb=562) 1.63 mg/dL 0.57-1.25 GLUCOSE RANDOM (BEAKER) (test vcjr=336) 115 mg/dL 70-105 CALCIUM (BEAKER) (test kqsq=482) 10.0 mg/dL 8.4-10.2 AST (SGOT) (BEAKER) (test pltb=121) 26 U/L 5-34 ALT (SGPT) (BEAKER) (test aoie=230) 10 U/L 6-55 EGFR (BEAKER) (test kkqr=3059) 42 mL/min/1.73 sq m ESTIMATED GFR IS NOT ACCURATE CREATININE CLEARANCE IN PREDICTING GLOMERULAR FILTRATION RATE. ESTIMATED GFR IS NOT APPLICABLE FOR DIALYSIS PATIENTS. CBC W/PLT COUNT & AUTO [id number] 09:53:00* Test Item Value Reference Range Comments WHITE BLOOD CELL COUNT (BEAKER) (test wfem=193) 10.5 K/ L 3.5-10.5 RED BLOOD CELL COUNT (BEAKER) (test uose=609) 5.56 M/ L 4.63-6.08 HEMOGLOBIN (BEAKER) (test pvrb=724) 13.3 GM/DL 13.7-17.5 HEMATOCRIT (BEAKER) (test xkxi=922) 45.9 % 40.1-51.0 MEAN CORPUSCULAR VOLUME (BEAKER) (test zkyz=046) 82.6 fL 79.0-92.2 MEAN CORPUSCULAR HEMOGLOBIN (BEAKER) (test nxtw=382) 23.9 pg 25.7-32.2 MEAN CORPUSCULAR HEMOGLOBIN CONC (BEAKER) (test vgnq=529) 29.0 GM/DL 32.3-36.5 RED CELL DISTRIBUTION WIDTH (BEAKER) (test ydvj=525) 19.9 % 11.6-14.4 PLATELET COUNT (BEAKER) (test gujt=794) 301 K/CU MM 150-450 MEAN PLATELET VOLUME (BEAKER) (test knrl=344) 9.6 fL 9.4-12.4 NUCLEATED RED BLOOD CELLS (BEAKER) (test pwlp=678) 0 /100 WBC 0-0 NEUTROPHILS RELATIVE PERCENT (BEAKER) (test qijh=616) 68 % LYMPHOCYTES RELATIVE PERCENT (BEAKER) (test wpvc=240) 20 % MONOCYTES RELATIVE PERCENT (BEAKER) (test ohqa=280) 8 % EOSINOPHILS RELATIVE PERCENT (BEAKER) (test lhzy=227) 3 % BASOPHILS RELATIVE PERCENT (BEAKER) (test mvlq=105) 1 % NEUTROPHILS ABSOLUTE COUNT (BEAKER) (test jfjf=925) 7.12 K/ L 1.78-5.38 LYMPHOCYTES ABSOLUTE COUNT (BEAKER) (test qlsf=262) 2.05 K/ L 1.32-3.57 MONOCYTES ABSOLUTE COUNT (BEAKER) (test grro=153) 0.85 K/ L 0.30-0.82 EOSINOPHILS ABSOLUTE COUNT (BEAKER) (test lpgw=093) 0.27 K/ L 0.04-0.54 BASOPHILS ABSOLUTE COUNT (BEAKER) (test xlxu=086) 0.11 K/ L 0.01-0.08 IMMATURE GRANULOCYTES-RELATIVE PERCENT (BEAKER) (test sqdn=3766) 1 % 0-1 LIPID [id number] 15:05:00* Test Item Value Reference Range Comments TRIGLYCERIDES (BEAKER) (test xchf=254) 80 mg/dL CHOLESTEROL (BEAKER) (test txzo=196) 231 mg/dL HDL CHOLESTEROL (BEAKER) (test aduy=843) 64 mg/dL LDL CHOLESTEROL CALCULATED (BEAKER) (test zygj=448) 151 mg/dL Triglyceride Reference Range: Low Risk <150 Borderline 150-199 High Risk 200-499 Very High Risk >=500Cholesterol Reference Range: Low Risk <200 Borderline 200-239 High Risk >240HDL Cholesterol Reference Range: Low Risk >=60 High Risk <40LDL Cholesterol Reference Range: Optimal <100 Near Optimal 100-129 Borderline 130-159 High 160-189 Very High >=190 COMPREHENSIVE METABOLIC [id number] 15:05:00* Test Item Value Reference Range Comments TOTAL PROTEIN (BEAKER) (test rkjk=504) 9.2 gm/dL 6.0-8.3 ALBUMIN (BEAKER) (test cifw=3112) 4.4 g/dL 3.5-5.0 ALKALINE PHOSPHATASE (BEAKER) (test rlms=098) 75 U/L 40-150 BILIRUBIN TOTAL (BEAKER) (test ovjn=379) 0.6 mg/dL 0.2-1.2 SODIUM (BEAKER) (test neen=401) 141 meq/L 136-145 POTASSIUM (BEAKER) (test doix=383) 4.8 meq/L 3.5-5.1 CHLORIDE (BEAKER) (test grow=028) 99 meq/L 98-107 CO2 (BEAKER) (test mmxo=297) 28 meq/L 22-29 BLOOD UREA NITROGEN (BEAKER) (test bhjs=257) 23 mg/dL 7-21 CREATININE (BEAKER) (test rarz=084) 1.81 mg/dL 0.57-1.25 GLUCOSE RANDOM (BEAKER) (test yrtz=248) 143 mg/dL 70-105 CALCIUM (BEAKER) (test udlu=730) 10.4 mg/dL 8.4-10.2 AST (SGOT) (BEAKER) (test fjaa=489) 28 U/L 5-34 ALT (SGPT) (BEAKER) (test fozw=587) 12 U/L 6-55 EGFR (BEAKER) (test jzog=8427) 37 mL/min/1.73 sq m ESTIMATED GFR IS NOT ACCURATE CREATININE CLEARANCE IN PREDICTING GLOMERULAR FILTRATION RATE. ESTIMATED GFR IS NOT APPLICABLE FOR DIALYSIS PATIENTS. CBC W/PLT COUNT & AUTO [id number] 14:40:00* Test Item Value Reference Range Comments WHITE BLOOD CELL COUNT (BEAKER) (test aipu=466) 14.4 K/ L 3.5-10.5 RED BLOOD CELL COUNT (BEAKER) (test ojcj=738) 6.26 M/ L 4.63-6.08 HEMOGLOBIN (BEAKER) (test xbkd=535) 14.4 GM/DL 13.7-17.5 HEMATOCRIT (BEAKER) (test jhzr=086) 49.4 % 40.1-51.0 MEAN CORPUSCULAR VOLUME (BEAKER) (test zibm=152) 78.9 fL 79.0-92.2 MEAN CORPUSCULAR HEMOGLOBIN (BEAKER) (test psie=914) 23.0 pg 25.7-32.2 MEAN CORPUSCULAR HEMOGLOBIN CONC (BEAKER) (test negc=946) 29.1 GM/DL 32.3-36.5 RED CELL DISTRIBUTION WIDTH (BEAKER) (test rdfa=810) 18.6 % 11.6-14.4 PLATELET COUNT (BEAKER) (test owzf=940) 386 K/CU MM 150-450 MEAN PLATELET VOLUME (BEAKER) (test kxpl=756) 9.3 fL 9.4-12.4 NUCLEATED RED BLOOD CELLS (BEAKER) (test jlsj=134) 0 /100 WBC 0-0 NEUTROPHILS RELATIVE PERCENT (BEAKER) (test ipru=538) 78 % LYMPHOCYTES RELATIVE PERCENT (BEAKER) (test recl=187) 14 % MONOCYTES RELATIVE PERCENT (BEAKER) (test yjpr=054) 7 % EOSINOPHILS RELATIVE PERCENT (BEAKER) (test mowu=145) 1 % BASOPHILS RELATIVE PERCENT (BEAKER) (test tmej=561) 1 % NEUTROPHILS ABSOLUTE COUNT (BEAKER) (test xltt=822) 11.20 K/ L 1.78-5.38 LYMPHOCYTES ABSOLUTE COUNT (BEAKER) (test knju=007) 2.00 K/ L 1.32-3.57 MONOCYTES ABSOLUTE COUNT (BEAKER) (test zndo=876) 0.95 K/ L 0.30-0.82 EOSINOPHILS ABSOLUTE COUNT (BEAKER) (test slgv=477) 0.08 K/ L 0.04-0.54 BASOPHILS ABSOLUTE COUNT (BEAKER) (test wbpb=459) 0.11 K/ L 0.01-0.08 IMMATURE GRANULOCYTES-RELATIVE PERCENT (BEAKER) (test blsk=1030) 1 % 0-1 U/S, FINE NEEDLE ASPIRATION, [id number] 13:02:00Reason for exam:->left thyroid mass 1.8 cmShould this be performed at the bedside?->NoFINAL REPORT Thyroid biopsy: Pertinent clinical information: Two greater than 1 cm thyroid nodulesComparison: 1 day earlierSedation: No s edationAnesthesia: Two percent Lidocaine injected subcutaneously at the biopsy site(s).Approach: Left anterior neck Modality: Ultrasound Technique: After informed written consent was obtained, the patient was prepped and draped in th e usual sterile manner. Ultrasound was utilized to identify the thyroid lesion . The lesion measured 1.3 by 1.4 by 1.5 cm and demonstrated hypoechoic well-circ umscribed characteristics. A second isthmus lesion was visualized measuring 1.6 x 1.5 x 1.2 cm Lidocaine was injected subcutaneously. Ultrasound was used to p erform a real time biopsy of the lesion. A 25 gauge needle was advanced into th e lesion and a fine needle aspiration was performed. Eight passes were made thr ough the lesion(s). The material was submitted to cytology for review. There w ere no complications from the procedure and the patient left the department in t he same condition. Impression:Successful, uncomplicated fine needle aspiration o f a left inferior pole lesion and a left isthmus lesion. This study was limited by the patient's inability to cooperate. Respiratory motion maintained imaging o f the biopsy difficult.. Signed: Shae Toribio Verified Date/Time: 09/03/2017 13:02:08 Reading Location: [facility] P006J Ultrasound Reading Room LOGY 2017-08-27 15:07:00Medical Cytology Report Case: [id number] Authorizing Provider: Cecy Uribe Collected: 08/24/2017 1320 MD Sabiha Ordering Location: [address] Received: 08/27/2017 0942 Service Pathologist: Nia Mcmahon Specimen: Thyroid, Left LEFT LOBE, THYROID NODULE, FNA BY CLINICIAN (CYTOSPINS): - DIAGNOSTIC CATEGORY: BENIGN - SOME COLLOID AND A FEW BENIGN APPEARING FOLLICULAR CELLS Signing Pathologist Direct Phone Line: [phone] signed by Nia Mcmahon on 08/27/2017 at 3:07 [id number](1.8 cm) Left thyroid nodule LEFT LOBE THYROID NODULE FNA25 mls in cytorich red; 4 cytospinsCollected: [id number]: [id number] the [facility], Department of Pathology, [address] [place] [address], [place] [address], [facility], [facility] of [facility], [address] [place] [address], [id number] 15:03:00Medical Cytology Report Case: [id number] Authorizing Provider: Cecy Uribe Collected: 08/24/2017 1320 MD Sabiha Ordering Location: [address] Received: 08/27/2017 0943 Service Pathologist: Nia Mcmahon Specimen: Thyroid, Left LEFT LOBE THYROID GLAND, ISTHMUS NODULE, FNA BY CLINICIAN (CYTOSPINS): - DIAGNOSTIC CATEGORY: BENIGN - BENIGN APPEARING FOLLICULAR CELLS AND COLLOID PRESENT Signing Pathologist Direct Phone Line: [phone] signed by Nia Mcmahon on 08/27/2017 at 3:03 [id number](1.7 cm) Left thyroid isthmus noduleLEFT LOBE THYROID GLAND ISTHMUS NODULE FNA25 mls in cytorich red; 4 cytospinsCollected: [id number]: [id number] 8BCoastal Communities [facility], Department of Pathology, [address] [place] [address], [facility]cd[facility], Department of Pathology, [address] [place] [address], URINALYSIS W/ [id number] 14:33:00* Test Item Value Reference Range Comments COLOR (BEAKER) (test lzxb=040) Yellow CLARITY (BEAKER) (test plju=603) Clear SPECIFIC GRAVITY UA (BEAKER) (test dymy=764) 1.011 1.001-1.035 PH UA (BEAKER) (test apxk=965) 5.5 5.0-8.0 PROTEIN UA (BEAKER) (test spyg=716) Negative Negative GLUCOSE UA (BEAKER) (test kony=610) Negative Negative KETONES UA (BEAKER) (test ccnk=010) Negative Negative BILIRUBIN UA (BEAKER) (test inmd=625) Negative Negative BLOOD UA (BEAKER) (test ynif=461) Negative Negative NITRITE UA (BEAKER) (test mnnx=835) Negative Negative LEUKOCYTE ESTERASE UA (BEAKER) (test tedl=069) Negative Negative UROBILINOGEN UA (BEAKER) (test tkhm=716) 0.2 mg/dL 0.2-1.0 RBC UA (BEAKER) (test ytij=025) 0 /HPF WBC UA (BEAKER) (test rfbi=153) 0 /HPF SQUAMOUS EPITHELIAL (BEAKER) (test rash=281) < /HPF HYALINE CASTS (BEAKER) (test vtcs=140) 1 /LPF SOURCE(BEAKER) (test jnnv=0399) Urine, Voided [id number] 13:34:00* Test Item Value Reference Range Comments CORTISOL, TOTAL (BEAKER) (test xkps=7032) 9.5 ug/dL 3.7-19.4 CBC W/PLT COUNT & AUTO [id number] 07:12:00* Test Item Value Reference Range Comments WHITE BLOOD CELL COUNT (BEAKER) (test rcae=537) 12.5 K/ L 3.5-10.5 RED BLOOD CELL COUNT (BEAKER) (test wley=437) 5.40 M/ L 4.63-6.08 HEMOGLOBIN (BEAKER) (test utcs=454) 13.0 GM/DL 13.7-17.5 HEMATOCRIT (BEAKER) (test gsja=674) 44.1 % 40.1-51.0 MEAN CORPUSCULAR VOLUME (BEAKER) (test fjkf=405) 81.7 fL 79.0-92.2 MEAN CORPUSCULAR HEMOGLOBIN (BEAKER) (test kgfr=882) 24.1 pg 25.7-32.2 MEAN CORPUSCULAR HEMOGLOBIN CONC (BEAKER) (test ywhb=016) 29.5 GM/DL 32.3-36.5 RED CELL DISTRIBUTION WIDTH (BEAKER) (test cvoo=266) 18.7 % 11.6-14.4 PLATELET COUNT (BEAKER) (test gstv=218) 337 K/CU MM 150-450 MEAN PLATELET VOLUME (BEAKER) (test llxz=516) 10.0 fL 9.4-12.4 NUCLEATED RED BLOOD CELLS (BEAKER) (test gsvt=841) 0 /100 WBC 0-0 NEUTROPHILS RELATIVE PERCENT (BEAKER) (test lsfw=204) 76 % LYMPHOCYTES RELATIVE PERCENT (BEAKER) (test rhfp=052) 13 % MONOCYTES RELATIVE PERCENT (BEAKER) (test eaxi=043) 8 % EOSINOPHILS RELATIVE PERCENT (BEAKER) (test hxkl=025) 1 % BASOPHILS RELATIVE PERCENT (BEAKER) (test jafq=780) 1 % NEUTROPHILS ABSOLUTE COUNT (BEAKER) (test eodf=057) 9.54 K/ L 1.78-5.38 LYMPHOCYTES ABSOLUTE COUNT (BEAKER) (test hkld=222) 1.66 K/ L 1.32-3.57 MONOCYTES ABSOLUTE COUNT (BEAKER) (test sjya=460) 0.94 K/ L 0.30-0.82 EOSINOPHILS ABSOLUTE COUNT (BEAKER) (test oncz=062) 0.13 K/ L 0.04-0.54 BASOPHILS ABSOLUTE COUNT (BEAKER) (test hzhv=489) 0.08 K/ L 0.01-0.08 IMMATURE GRANULOCYTES-RELATIVE PERCENT (BEAKER) (test kefc=6891) 1 % 0-1 BASIC METABOLIC [id number] 05:52:00* Test Item Value Reference Range Comments SODIUM (BEAKER) (test srqp=399) 137 meq/L 136-145 POTASSIUM (BEAKER) (test hfyh=427) 5.0 meq/L 3.5-5.1 Specimen slightly hemolyzed CHLORIDE (BEAKER) (test yzji=686) 102 meq/L 98-107 CO2 (BEAKER) (test shov=128) 24 meq/L 22-29 BLOOD UREA NITROGEN (BEAKER) (test pdbd=401) 18 mg/dL 7-21 CREATININE (BEAKER) (test ubsw=830) 1.38 mg/dL 0.57-1.25 Specimen slightly hemolyzed GLUCOSE RANDOM (BEAKER) (test jtny=623) 85 mg/dL 70-105 CALCIUM (BEAKER) (test fkzh=104) 8.8 mg/dL 8.4-10.2 EGFR (BEAKER) (test qsms=9489) 51 mL/min/1.73 sq m ESTIMATED GFR IS NOT ACCURATE CREATININE CLEARANCE IN PREDICTING GLOMERULAR FILTRATION RATE. ESTIMATED GFR IS NOT APPLICABLE FOR DIALYSIS PATIENTS. OSMOLALITY, [id number] 17:00:00* Test Item Value Reference Range Comments OSMOLALITY URINE (BEAKER) (test zpzt=132) 541 mOsm/kg 40-1400 CHLORIDE, RANDOM [id number] 16:22:00* Test Item Value Reference Range Comments CHLORIDE URINE (BEAKER) (test xvmy=879) 131 meq/L Reference Range: No NormalsCREATININE, RANDOM [id number] 16:22:00* Test Item Value Reference Range Comments CREATININE URINE (BEAKER) (test sspq=757) 89.8 mg/dL Reference Range: No NormalsPOTASSIUM, RANDOM [id number] 16:22:00* Test Item Value Reference Range Comments POTASSIUM URINE (BEAKER) (test tbdx=849) 37.4 meq/L Reference Range: No NormalsSODIUM, RANDOM [id number] 16:22:00* Test Item Value Reference Range Comments SODIUM URINE (BEAKER) (test vfnv=038) 125 meq/L Reference Range: No NormalsU/S, FINE NEEDLE ASPIRATION, [id number] 14:02:00Reason for exam:->left isthmus mass 1.7 cmShould this be performed at the bedside?->NoFINAL REPORT Thyroid biopsy: Pertinent clinical information: Two greater than 1 cm thyroid nodulesComparison: 1 day earlierSedation: No sedationAnesthesia: Two percent Lidocaine injected subcutaneously at the biopsy site(s).Approach: Left anterior neck Modality: Ultrasound Technique: After informed written consent was obtained, the patient was prepped and draped in the usual sterile manner. Ultrasound was utilized to identify the thyroid lesion. The lesion measured 1.3 by 1.4 by 1.5 cm and demonstrated hypoechoic well-circumscribed characteristics. A second isthmus lesion was visualized measuring 1.6 x 1.5 x 1.2 cm Lidocaine was injected subcutaneously. Ultrasound was used to perform a real time biopsy of the lesion. A 25 gauge needle was advanced into the lesion and a fine needle aspiration was performed. Eight passes were made through the lesion(s). The material was submitted to cytology for review. There were no complications from the procedure and the patient left the department in the same condition. Impression:Successful, uncomplicated fine needle aspiration of a left inferior pole lesion and a left isthmus lesion. This study was limited by the patient's inability to cooperate. Respiratory motion maintained imaging of the biopsy difficult.. Signed: Shae Toribio Verified Date/Time: 08/24/2017 14:02:55 Reading Location: [facility] B1 P006J Ultrasound Reading Room W/PLT COUNT & AUTO [id number] 09:20:00* Test Item Value Reference Range Comments WHITE BLOOD CELL COUNT (BEAKER) (test ipoq=113) 11.2 K/ L 3.5-10.5 RED BLOOD CELL COUNT (BEAKER) (test ymbo=238) 5.29 M/ L 4.63-6.08 HEMOGLOBIN (BEAKER) (test pmxh=098) 12.6 GM/DL 13.7-17.5 HEMATOCRIT (BEAKER) (test qkme=089) 43.0 % 40.1-51.0 MEAN CORPUSCULAR VOLUME (BEAKER) (test uhcd=629) 81.3 fL 79.0-92.2 MEAN CORPUSCULAR HEMOGLOBIN (BEAKER) (test tuab=801) 23.8 pg 25.7-32.2 MEAN CORPUSCULAR HEMOGLOBIN CONC (BEAKER) (test hggy=757) 29.3 GM/DL 32.3-36.5 RED CELL DISTRIBUTION WIDTH (BEAKER) (test ueni=784) 18.1 % 11.6-14.4 PLATELET COUNT (BEAKER) (test mzau=765) 333 K/CU MM 150-450 MEAN PLATELET VOLUME (BEAKER) (test mwqa=517) 9.7 fL 9.4-12.4 NUCLEATED RED BLOOD CELLS (BEAKER) (test scvj=225) 0 /100 WBC 0-0 NEUTROPHILS RELATIVE PERCENT (BEAKER) (test bjoa=072) 76 % LYMPHOCYTES RELATIVE PERCENT (BEAKER) (test nope=004) 14 % MONOCYTES RELATIVE PERCENT (BEAKER) (test tysu=992) 7 % EOSINOPHILS RELATIVE PERCENT (BEAKER) (test gjdz=716) 1 % BASOPHILS RELATIVE PERCENT (BEAKER) (test fonk=491) 1 % NEUTROPHILS ABSOLUTE COUNT (BEAKER) (test wxsb=291) 8.55 K/ L 1.78-5.38 LYMPHOCYTES ABSOLUTE COUNT (BEAKER) (test lhcl=257) 1.52 K/ L 1.32-3.57 MONOCYTES ABSOLUTE COUNT (BEAKER) (test yxjx=993) 0.83 K/ L 0.30-0.82 EOSINOPHILS ABSOLUTE COUNT (BEAKER) (test vgqs=135) 0.14 K/ L 0.04-0.54 BASOPHILS ABSOLUTE COUNT (BEAKER) (test wpmt=412) 0.07 K/ L 0.01-0.08 IMMATURE GRANULOCYTES-RELATIVE PERCENT (BEAKER) (test xrow=1095) 1 % 0-1 BASIC METABOLIC [id number] 07:45:00* Test Item Value Reference Range Comments SODIUM (BEAKER) (test moyx=561) 141 meq/L 136-145 POTASSIUM (BEAKER) (test yrug=204) 4.9 meq/L 3.5-5.1 CHLORIDE (BEAKER) (test kmdx=189) 106 meq/L 98-107 CO2 (BEAKER) (test uqiv=157) 25 meq/L 22-29 BLOOD UREA NITROGEN (BEAKER) (test wzjh=745) 18 mg/dL 7-21 CREATININE (BEAKER) (test hsdz=855) 1.21 mg/dL 0.57-1.25 GLUCOSE RANDOM (BEAKER) (test vkua=997) 107 mg/dL 70-105 CALCIUM (BEAKER) (test aqzv=530) 9.0 mg/dL 8.4-10.2 EGFR (BEAKER) (test pfaa=3575) 59 mL/min/1.73 sq m ESTIMATED GFR IS NOT ACCURATE CREATININE CLEARANCE IN PREDICTING GLOMERULAR FILTRATION RATE. ESTIMATED GFR IS NOT APPLICABLE FOR DIALYSIS PATIENTS. CBC W/PLT COUNT & AUTO [id number] 06:22:00* Test Item Value Reference Range Comments WHITE BLOOD CELL COUNT (BEAKER) (test hdtc=588) 12.0 K/ L 3.5-10.5 RED BLOOD CELL COUNT (BEAKER) (test aisn=550) 5.29 M/ L 4.63-6.08 HEMOGLOBIN (BEAKER) (test exib=869) 12.8 GM/DL 13.7-17.5 HEMATOCRIT (BEAKER) (test djbf=989) 42.9 % 40.1-51.0 MEAN CORPUSCULAR VOLUME (BEAKER) (test mvwo=763) 81.1 fL 79.0-92.2 MEAN CORPUSCULAR HEMOGLOBIN (BEAKER) (test cpdg=959) 24.2 pg 25.7-32.2 MEAN CORPUSCULAR HEMOGLOBIN CONC (BEAKER) (test ixkh=241) 29.8 GM/DL 32.3-36.5 RED CELL DISTRIBUTION WIDTH (BEAKER) (test cwlu=442) 17.7 % 11.6-14.4 PLATELET COUNT (BEAKER) (test yctv=015) 306 K/CU MM 150-450 MEAN PLATELET VOLUME (BEAKER) (test pfbo=836) 9.5 fL 9.4-12.4 NUCLEATED RED BLOOD CELLS (BEAKER) (test yvmj=645) 0 /100 WBC 0-0 NEUTROPHILS RELATIVE PERCENT (BEAKER) (test cepf=299) 76 % LYMPHOCYTES RELATIVE PERCENT (BEAKER) (test eerh=976) 14 % MONOCYTES RELATIVE PERCENT (BEAKER) (test iols=305) 8 % EOSINOPHILS RELATIVE PERCENT (BEAKER) (test rdru=870) 1 % BASOPHILS RELATIVE PERCENT (BEAKER) (test rapo=897) 1 % NEUTROPHILS ABSOLUTE COUNT (BEAKER) (test eaah=114) 9.03 K/ L 1.78-5.38 LYMPHOCYTES ABSOLUTE COUNT (BEAKER) (test psej=616) 1.68 K/ L 1.32-3.57 MONOCYTES ABSOLUTE COUNT (BEAKER) (test yrgt=868) 0.90 K/ L 0.30-0.82 EOSINOPHILS ABSOLUTE COUNT (BEAKER) (test jfnp=719) 0.14 K/ L 0.04-0.54 BASOPHILS ABSOLUTE COUNT (BEAKER) (test jbkp=218) 0.10 K/ L 0.01-0.08 IMMATURE GRANULOCYTES-RELATIVE PERCENT (BEAKER) (test lrjt=7984) 1 % 0-1 [id number] 05:17:00* Test Item Value Reference Range Comments MAGNESIUM (BEAKER) (test jtvm=793) 1.6 mg/dL 1.6-2.6 BASIC METABOLIC [id number] 05:17:00* Test Item Value Reference Range Comments SODIUM (BEAKER) (test onae=816) 136 meq/L 136-145 POTASSIUM (BEAKER) (test lyzz=776) 4.5 meq/L 3.5-5.1 CHLORIDE (BEAKER) (test glbv=744) 104 meq/L 98-107 CO2 (BEAKER) (test trse=145) 22 meq/L 22-29 BLOOD UREA NITROGEN (BEAKER) (test tqaz=619) 16 mg/dL 7-21 CREATININE (BEAKER) (test ftoq=345) 1.06 mg/dL 0.57-1.25 GLUCOSE RANDOM (NIKKI) (test ptrt=935) 97 mg/dL 70-105 CALCIUM (NIKKI) (test orak=222) 9.2 mg/dL 8.4-10.2 EGFR (NIKKI) (test xbed=3447) 69 mL/min/1.73 sq m ESTIMATED GFR IS NOT ACCURATE CREATININE CLEARANCE IN PREDICTING GLOMERULAR FILTRATION RATE. ESTIMATED GFR IS NOT APPLICABLE FOR DIALYSIS PATIENTS. U/S, [id number] 21:18:00Reason for exam:->abnormal CT chest with ? thyroid massFINAL REPORT EXAMINATION: THYROID ULTRASOUND INDICATION: Thyroid nodule on recent CT examination. FINDINGS: Compared with noncontrast CT 08/20/2017. Examination was limited by motion degradation as the patient had difficulty with breath holding during the examination. The right lobe of the thyroid gland measures 4.0 x 1.5 x 1.7 cm The left lobe of the thyroid gland measures 3.2 x 1.4 x 1.9 cm.The thyroid isthmus measures approximately 2.1 mm in thickness. Both lobes of the thyroid gland are mildly heterogeneous. However, the mid to lower pole of the left lobe of the thyroid gland is associated with a heterogeneous nodular focus which measures approximately 1.8 cm. IMPRESSION: Motion degraded examination. Suspected 1.8 cm left thyroid nodule. Consider follow-up with otolaryngology. Signed: Lew Wylie Verified Date/Time: 08/22/2017 21:18:50 Reading Location: [address] Transitional Reading Room , CARDIAC PERFUSION MULTIPLE STUDIES, REST AND [id number] 14:15:00Reason for exam:->chest painFINAL REPORT PROCEDURE: Rest/Stress MYOCARDIAL PERFUSION PET with regadenoson\XA9\ CPT CODE: 45119 INDICATION: Chest pain, evaluate acute chest pain/discomfort HISTORY: Cardiac risk factors: Age, gender. Other cardiovascular history: Atrial fibrillation. Recent cardiac symptoms: Dyspnea, chest pain. Current cardiovascular-related medications: Amiodarone, metoprolol. PROTOCOL: Limited low-dose CT imaging was performed for attenuation correction. 40.1 mCi of Rb-82 chloride was injected iv at rest, and gated PET (p ositron emission tomography) images were obtained. Subsequently, 40.1 mCi of Rb- 82 chloride was injected iv at expected peak pharmacologic effect, and gated PET images were obtained. PRELIMINARY STRESS TEST DATA FROM NONINVASIVE CARDIOLOGY : Pharmacologic stress was by 10-second iv infusion of 0.4 mg of regadenoson . Radiotracer was injected 30 seconds after start of stress. Heart rate was 67 b eats/min at rest and 84 beats/min (56% of MPHR) at tracer injection. BP was 157/ 69 mmHg at rest and 169/58 mmHg at tracer injection. Stress was stopped for pred etermined endpoint. The patient experienced dyspnea; treatment was not required. Preliminary ECG evaluation revealed sinus rhythm at rest and no ischemic change s with stress. (Final ECG interpretation and other stress and monitoring data ar e reported separately by Cardiology.) IMAGING FINDINGS: Study quality is go od. Images obtained after rest and stress injections show normal LV activity. LV and RV volumes appear normal. Gated images obtained at rest and with stress chyna w normal LV wall motion and thickening. LVEF at rest is 69%. LVEF at stress is g reater than 70%. Moderate aortic calcification seen on CT imaging. IMPRESSION: 1. Normal study. 2. Appropriate pharmacologic stress. 3. Normal myocardial perfusion. 4. Normal resting LV function. No deterioration of function is note d with pharmacologic stress. 5. Normal extracardiac tracer distribution. 6. No previous [facility] study for comparison. 7. Moderate aortic calcification seen on CT imaging. NONINVASIVE RISK STRATIFICATION: The above findings are considered low risk (<1% annual mortality rate) based on the following criterion:- Normal or small myocardial perfusion defect at rest or with stress(JACC. 2012;59(9):857-81.) Signed: Jovan Puentes MDReport Verified Date/Time: 08/22/2017 14:15:35 Reading Location: [address] Reading Room T3, [id number] 04:47:00* Test Item Value Reference Range Comments T3 FREE (BEAKER) (test lhsv=639) 3.09 pg/mL 1.71-3.71 VITAMIN B12 AND [id number] 04:47:00* Test Item Value Reference Range Comments VITAMIN B12 (BEAKER) (test rdco=569) 869 pg/mL 213-816 FOLATE (BEAKER) (test iysd=274) 14.3 ng/mL >=7.0 CBC W/PLT COUNT & AUTO [id number] 04:14:00* Test Item Value Reference Range Comments WHITE BLOOD CELL COUNT (BEAKER) (test emdx=794) 11.5 K/ L 3.5-10.5 RED BLOOD CELL COUNT (BEAKER) (test ifop=708) 4.97 M/ L 4.63-6.08 HEMOGLOBIN (BEAKER) (test cram=973) 12.0 GM/DL 13.7-17.5 HEMATOCRIT (BEAKER) (test ydav=045) 40.2 % 40.1-51.0 MEAN CORPUSCULAR VOLUME (BEAKER) (test xkkj=762) 80.9 fL 79.0-92.2 MEAN CORPUSCULAR HEMOGLOBIN (BEAKER) (test bwoh=078) 24.1 pg 25.7-32.2 MEAN CORPUSCULAR HEMOGLOBIN CONC (BEAKER) (test wwvk=322) 29.9 GM/DL 32.3-36.5 RED CELL DISTRIBUTION WIDTH (BEAKER) (test pjwj=792) 17.5 % 11.6-14.4 PLATELET COUNT (BEAKER) (test ukqo=481) 280 K/CU MM 150-450 MEAN PLATELET VOLUME (BEAKER) (test fkmh=974) 9.2 fL 9.4-12.4 NUCLEATED RED BLOOD CELLS (BEAKER) (test emcx=998) 0 /100 WBC 0-0 NEUTROPHILS RELATIVE PERCENT (BEAKER) (test dblt=676) 75 % LYMPHOCYTES RELATIVE PERCENT (BEAKER) (test wkep=789) 15 % MONOCYTES RELATIVE PERCENT (BEAKER) (test mppu=612) 7 % EOSINOPHILS RELATIVE PERCENT (BEAKER) (test bobf=281) 1 % BASOPHILS RELATIVE PERCENT (BEAKER) (test wdso=510) 1 % NEUTROPHILS ABSOLUTE COUNT (BEAKER) (test sebm=696) 8.69 K/ L 1.78-5.38 LYMPHOCYTES ABSOLUTE COUNT (BEAKER) (test sosw=122) 1.72 K/ L 1.32-3.57 MONOCYTES ABSOLUTE COUNT (BEAKER) (test zugw=325) 0.79 K/ L 0.30-0.82 EOSINOPHILS ABSOLUTE COUNT (BEAKER) (test bgjw=168) 0.16 K/ L 0.04-0.54 BASOPHILS ABSOLUTE COUNT (BEAKER) (test xvhz=535) 0.07 K/ L 0.01-0.08 IMMATURE GRANULOCYTES-RELATIVE PERCENT (BEAKER) (test pnck=6663) 1 % 0-1 [id number] 04:11:00* Test Item Value Reference Range Comments MAGNESIUM (BEAKER) (test aduy=149) 1.8 mg/dL 1.6-2.6 Specimen slightly hemolyzed BASIC METABOLIC [id number] 04:11:00* Test Item Value Reference Range Comments SODIUM (BEAKER) (test cisv=060) 139 meq/L 136-145 POTASSIUM (BEAKER) (test cwim=165) 4.3 meq/L 3.5-5.1 Specimen slightly hemolyzed CHLORIDE (BEAKER) (test htew=586) 106 meq/L 98-107 CO2 (BEAKER) (test vqqx=218) 23 meq/L 22-29 BLOOD UREA NITROGEN (BEAKER) (test aamz=607) 18 mg/dL 7-21 CREATININE (BEAKER) (test uylf=605) 1.13 mg/dL 0.57-1.25 Specimen slightly hemolyzed GLUCOSE RANDOM (BEAKER) (test dzqj=332) 100 mg/dL 70-105 CALCIUM (BEAKER) (test ezco=521) 8.9 mg/dL 8.4-10.2 EGFR (BEAKER) (test jlaz=1235) 64 mL/min/1.73 sq m ESTIMATED GFR IS NOT ACCURATE CREATININE CLEARANCE IN PREDICTING GLOMERULAR FILTRATION RATE. ESTIMATED GFR IS NOT APPLICABLE FOR DIALYSIS PATIENTS. LEGIONELLA ANTIGEN, [id number] 23:14:00* Test Item Value Reference Range Comments L. PNEUMOPHILA SEROGP 1 UR AG (BEAKER) (test zuvt=6104) Negative - see comment Negative for L. pneumophila serogroup 1 antigen, suggesting no recent or current infection with this serogroup. Legionellosis cannot be ruled out since other serogroups and species may cause disease. STREP PNEUMONIAE [id number] 23:14:00* Test Item Value Reference Range Comments STREP PNEUMONIAE ANTIGEN (BEAKER) (test mgaf=4483) Presumptive negative for pneumococcal pneumonia - see comment Presumptive negative for pneumococcal pneumonia - see commen Presumptive negative for pneumococcal pneumonia, suggesting no current or recent pneumococcal infection. Infection due to S. pneumoniae cannot be ruled out sin e the antigen present in the sample may be below the detection limit of the test .[id number] 07:10:00* Test Item Value Reference Range Comments MAGNESIUM (BEAKER) (test cfcy=892) 1.8 mg/dL 1.6-2.6 Specimen slightly hemolyzed BASIC METABOLIC [id number] 07:10:00* Test Item Value Reference Range Comments SODIUM (BEAKER) (test ulpf=832) 140 meq/L 136-145 POTASSIUM (BEAKER) (test sjxq=817) 4.2 meq/L 3.5-5.1 Specimen slightly hemolyzed CHLORIDE (BEAKER) (test rtyu=623) 107 meq/L 98-107 CO2 (BEAKER) (test udao=121) 24 meq/L 22-29 BLOOD UREA NITROGEN (BEAKER) (test lmwe=661) 18 mg/dL 7-21 CREATININE (BEAKER) (test tlva=348) 1.00 mg/dL 0.57-1.25 Specimen slightly hemolyzed GLUCOSE RANDOM (BEAKER) (test yhgc=822) 94 mg/dL 70-105 CALCIUM (BEAKER) (test lnxo=873) 8.4 mg/dL 8.4-10.2 EGFR (BEAKER) (test cmbk=0575) 73 mL/min/1.73 sq m ESTIMATED GFR IS NOT ACCURATE CREATININE CLEARANCE IN PREDICTING GLOMERULAR FILTRATION RATE. ESTIMATED GFR IS NOT APPLICABLE FOR DIALYSIS PATIENTS. CBC W/PLT COUNT & AUTO [id number] 06:28:00* Test Item Value Reference Range Comments WHITE BLOOD CELL COUNT (BEAKER) (test ddkf=641) 10.8 K/ L 3.5-10.5 RED BLOOD CELL COUNT (BEAKER) (test khcj=865) 4.99 M/ L 4.63-6.08 HEMOGLOBIN (BEAKER) (test yjzn=789) 11.9 GM/DL 13.7-17.5 HEMATOCRIT (BEAKER) (test nikg=857) 40.3 % 40.1-51.0 MEAN CORPUSCULAR VOLUME (BEAKER) (test jtto=343) 80.8 fL 79.0-92.2 MEAN CORPUSCULAR HEMOGLOBIN (BEAKER) (test poaw=814) 23.8 pg 25.7-32.2 MEAN CORPUSCULAR HEMOGLOBIN CONC (BEAKER) (test jswg=215) 29.5 GM/DL 32.3-36.5 RED CELL DISTRIBUTION WIDTH (BEAKER) (test gkav=454) 17.9 % 11.6-14.4 PLATELET COUNT (BEAKER) (test ablv=351) 314 K/CU MM 150-450 MEAN PLATELET VOLUME (BEAKER) (test yvcw=874) 9.9 fL 9.4-12.4 NUCLEATED RED BLOOD CELLS (BEAKER) (test itgd=043) 0 /100 WBC 0-0 NEUTROPHILS RELATIVE PERCENT (BEAKER) (test ferk=998) 73 % LYMPHOCYTES RELATIVE PERCENT (BEAKER) (test vpcu=072) 16 % MONOCYTES RELATIVE PERCENT (BEAKER) (test kffl=860) 8 % EOSINOPHILS RELATIVE PERCENT (BEAKER) (test eodk=516) 2 % BASOPHILS RELATIVE PERCENT (BEAKER) (test cusd=232) 1 % NEUTROPHILS ABSOLUTE COUNT (BEAKER) (test wrmq=015) 7.86 K/ L 1.78-5.38 LYMPHOCYTES ABSOLUTE COUNT (BEAKER) (test mftb=348) 1.73 K/ L 1.32-3.57 MONOCYTES ABSOLUTE COUNT (BEAKER) (test jowh=683) 0.87 K/ L 0.30-0.82 EOSINOPHILS ABSOLUTE COUNT (BEAKER) (test bkmh=870) 0.17 K/ L 0.04-0.54 BASOPHILS ABSOLUTE COUNT (BEAKER) (test rqoq=664) 0.08 K/ L 0.01-0.08 IMMATURE GRANULOCYTES-RELATIVE PERCENT (BEAKER) (test limd=2976) 1 % 0-1 U/S, RENAL, [id number] 23:50:00Reason for exam:->renal insufficiency FINAL REPORT EXAM: RENAL ULTRASOUND CLINICAL HISTORY: RENAL INSUFFICIENCY FINDINGS: No comparison studies are available. The right kid liza measures 9 x 4 x 5 cm. The left kidney measures 10 x 5 x 6 cm. No evidence o f renal obstruction or nephrolithiasis. The renal echogenicity is normal. The ri ght renal cortex measures 8 mm. The left renal cortex measures 14 mm. Survey tom ges of the bladder were grossly unremarkable. The bladder volume was 215 cc. IM PRESSION: The right kidney is slightly smaller than the left kidney and demonstr ates mild cortical thinning. No evidence of an obstructive uropathy or abnormal renal cortical echogenicity. Signed: Lew Wylie MDReport Verified Date/Time: 08/20/2017 23:50:19 Reading Location: [address] Transitional Reading Room - GLUCOSE [id number] 22:36:00* Test Item Value Reference Range Comments POC-GLUCOSE METER (BEAKER) (test dnme=8569) 106 mg/dL 70-110 TESTED AT [facility] [address] [facility] [address] T4, [id number] 19:01:00* Test Item Value Reference Range Comments FREE T4 (BEAKER) (test nlsp=398) 0.77 ng/dL 0.70-1.48 TSH/FREE T4 IF [id number] 18:17:00* Test Item Value Reference Range Comments THYROID STIMULATING HORMONE (BEAKER) (test uort=048) 0.04 uIU/mL 0.35-4.94 CT, CHEST, WITHOUT [id number] 18:14:00FINAL REPORT TECHNIQUE: CT scan of the chest WITHOUT intravenous contrast. Dose modulation, iterative reconstruction, and/or weight-based adjustment of the mA/kV was utilized to reduce the radiation dose to as low as reasonably achievable. INDICATION: 72-year-old man with dyspnea. COMPARISON: Chest radiograph from earlier same date. FINDINGS: ABSENCE OF INTRAVENOUS CONTRAST DECREASES SENSITIVITY FOR DETECTION OF FOCAL LESIONS AND VASCULAR PATHOLOGY. L RCIKIE/TUBES: None. LUNGS AND AIRWAYS: Central airways are patent. No pulmonary no dules. Focal patchy groundglass and consolidative opacities in the left lower lo be. Linear subsegmental atelectasis and/or scarring in the right lung base. PLEU RA: The pleural spaces are clear. HEART AND MEDIASTINUM: 1.6 cm exophytic nodule arising from the thyroid isthmus. An additional 1.7 cm soft tissue structure ad jacent to the left thyroid gland likely represents another exophytic thyroid nod ule versus less likely lymph node. No significant mediastinal, hilar, or axillar y lymphadenopathy. The heart and pericardium are within normal limits. Atheroscl erotic calcifications in the thoracic aorta and coronary arteries. Small amount of fluid in the esophagus. SOFT TISSUES AND BONES: Degenerative changes of the v isualized spine. UPPER ABDOMEN: Laparoscopic gastric band around the proximal st omach. Otherwise, unremarkable. IMPRESSION:Focal opacities in the left lower lo be, likely pneumonia/aspiration. Suspected exophytic thyroid nodules measure up to 1.7 cm. RECOMMENDATION:Nonemergent thyroid ultrasound may be obtained to furt her evaluate suspected nodules. Signed: Jarrett Ramirez MDReport Verified Date/T yoselin: 08/20/2017 18:14:16 Reading Location: [facility] C[facility] CT Body Reading Room [id number] 07:11:00* Test Item Value Reference Range Comments D-DIMER QUANTITATIVE (BEAKER) (test yjqu=626) 1.49 MG/L FEU <0.50 Intended Use: The D-Dimer Assay can be used to aid in the diagnosis of Deep Vein Thrombosis (DVT) and Pulmonary Embolism Disease (PED).In patients with low pre- test probability, various studies concerning STA Liatest D-dimer test have repor mary kate that with a cutoff value of 0.50 MG/L FEU, the Negative Predictive Value (APRN V) regarding the exclusion of thrombosis is within 95-100% range.COMPREHENSIVE METABOLIC [id number] 05:52:00* Test Item Value Reference Range Comments TOTAL PROTEIN (BEAKER) (test diwp=168) 7.9 gm/dL 6.0-8.3 ALBUMIN (BEAKER) (test fkvz=7009) 3.6 g/dL 3.5-5.0 ALKALINE PHOSPHATASE (BEAKER) (test ijst=841) 67 U/L 40-150 BILIRUBIN TOTAL (BEAKER) (test wpgh=623) 0.4 mg/dL 0.2-1.2 SODIUM (BEAKER) (test rnjj=706) 141 meq/L 136-145 POTASSIUM (BEAKER) (test piey=732) 5.4 meq/L 3.5-5.1 CHLORIDE (BEAKER) (test yfit=255) 107 meq/L 98-107 CO2 (BEAKER) (test unwb=345) 23 meq/L 22-29 BLOOD UREA NITROGEN (BEAKER) (test dzip=728) 21 mg/dL 7-21 CREATININE (BEAKER) (test hshg=517) 1.42 mg/dL 0.57-1.25 GLUCOSE RANDOM (BEAKER) (test atds=873) 109 mg/dL 70-105 CALCIUM (BEAKER) (test wbus=886) 9.5 mg/dL 8.4-10.2 AST (SGOT) (BEAKER) (test aghw=254) 36 U/L 5-34 ALT (SGPT) (BEAKER) (test xjku=843) 41 U/L 6-55 EGFR (BEAKER) (test dvwj=9208) 49 mL/min/1.73 sq m ESTIMATED GFR IS NOT ACCURATE CREATININE CLEARANCE IN PREDICTING GLOMERULAR FILTRATION RATE. ESTIMATED GFR IS NOT APPLICABLE FOR DIALYSIS PATIENTS. CREATINE KINASE (CK), TOTAL AND [id number] 02:43:00* Test Item Value Reference Range Comments CREATINE KINASE TOTAL (BEAKER) (test gzrp=632) 72 U/L 29-200 CREATINE KINASE-MB (BEAKER) (test sgnu=756) 3.5 ng/mL 0.0-6.6 CREATINE KINASE-MB INDEX (BEAKER) (test wwyt=280) 4.9 % CK-MB Reference Range:<6.7 Normal6.7-10.0 Borderline>10.0 Abnormal TROPONIN [id number] 02:43:00* Test Item Value Reference Range Comments TROPONIN I (BEAKER) (test dlef=586) 0.02 ng/mL 0.00-0.03 Troponin I (TnI) levels must be interpreted in the context of the presenting sym ptoms and the clinical findings. Elevated TnI levels indicate myocardial damage, but are not specific for ischemic heart disease. Elevated TnI levels are seen i n patients with other cardiac conditions (including myocarditis and congestive h eart failure), and slight TnI elevations occur in patients with other conditions , including sepsis, renal failure, acidosis, acute neurological disease, and per sistent tachyarrhythmia.B-TYPE NATRIURETIC FACTOR (BNP)2017-08-20 02:43:00* Test Item Value Reference Range Comments B-TYPE NATRIURETIC PEPTIDE (BEAKER) (test uekn=282) 137 pg/mL 0-100 RAD, CHEST, 2 [id number] 02:33:00Reason for exam:->SHORTNESS OF BREATHFINAL REPORT Examination: Two view Chest X-ray. CLINICAL HISTORY: Shortness of breath COMPARISON: 12/11/2016 2 views of the upright chest are submitted. The examination is limited by low lung volumes. The cardiac silho uette is within normal limits for size. There is atherosclerotic calcification o f the aorta. There is no focal consolidation, pleural effusion, pneumothorax or evidence of overt pulmonary edema. There is no acute bony abnormality. Gastri c banding hardware is partially visualized. Signed: Jose Bourgeois MDReport Verif ied Date/Time: 08/20/2017 02:33:24 Reading Location: [address] Room 02: 33 AM CBC W/PLT COUNT & AUTO [id number] 02:32:00* Test Item Value Reference Range Comments WHITE BLOOD CELL COUNT (BEAKER) (test upqa=114) 14.1 K/ L 3.5-10.5 RED BLOOD CELL COUNT (BEAKER) (test hdvw=851) 5.36 M/ L 4.63-6.08 HEMOGLOBIN (BEAKER) (test ihxd=047) 13.0 GM/DL 13.7-17.5 HEMATOCRIT (BEAKER) (test jkcd=215) 43.5 % 40.1-51.0 MEAN CORPUSCULAR VOLUME (BEAKER) (test akya=906) 81.2 fL 79.0-92.2 MEAN CORPUSCULAR HEMOGLOBIN (BEAKER) (test nfmv=169) 24.3 pg 25.7-32.2 MEAN CORPUSCULAR HEMOGLOBIN CONC (BEAKER) (test nqgu=861) 29.9 GM/DL 32.3-36.5 RED CELL DISTRIBUTION WIDTH (BEAKER) (test bxne=088) 18.2 % 11.6-14.4 PLATELET COUNT (BEAKER) (test vllm=093) 321 K/CU MM 150-450 MEAN PLATELET VOLUME (BEAKER) (test szbb=702) 9.4 fL 9.4-12.4 NUCLEATED RED BLOOD CELLS (BEAKER) (test ezgb=201) 0 /100 WBC 0-0 NEUTROPHILS RELATIVE PERCENT (BEAKER) (test wjmz=815) 76 % LYMPHOCYTES RELATIVE PERCENT (BEAKER) (test opfp=880) 15 % MONOCYTES RELATIVE PERCENT (BEAKER) (test ykqd=362) 6 % EOSINOPHILS RELATIVE PERCENT (BEAKER) (test tvow=988) 1 % BASOPHILS RELATIVE PERCENT (BEAKER) (test tflo=577) 1 % NEUTROPHILS ABSOLUTE COUNT (BEAKER) (test yklg=604) 10.70 K/ L 1.78-5.38 LYMPHOCYTES ABSOLUTE COUNT (BEAKER) (test gpgr=702) 2.09 K/ L 1.32-3.57 MONOCYTES ABSOLUTE COUNT (BEAKER) (test kggf=965) 0.88 K/ L 0.30-0.82 EOSINOPHILS ABSOLUTE COUNT (BEAKER) (test atuu=348) 0.19 K/ L 0.04-0.54 BASOPHILS ABSOLUTE COUNT (BEAKER) (test zeps=626) 0.11 K/ L 0.01-0.08 IMMATURE GRANULOCYTES-RELATIVE PERCENT (BEAKER) (test gvze=0001) 1 % 0-1 [id number] 02:31:00* Test Item Value Reference Range Comments PROTIME (BEAKER) (test lwfs=872) 13.0 seconds 11.7-14.7 INR (BEAKER) (test wmmc=539) 1.0 <=5.9 PARTIAL THROMBOPLASTIN TIME (BEAKER) (test dhgl=673) 29.4 seconds 22.5-36.0 RECOMMENDED COUMADIN/WARFARIN INR THERAPY RANGESSTANDARD DOSE: 2.0 - 3.0 Inclu marisol: PROPHYLAXIS for venous thrombosis, systemic embolization; TREATMENT for gisel ous thrombosis and/or pulmonary embolus.HIGH RISK: Target INR is 2.5-3.5 for pat ients with mechanical heart valves.LIPID [id number] 11:13:00* Test Item Value Reference Range Comments TRIGLYCERIDES (BEAKER) (test cjpo=963) 61 mg/dL CHOLESTEROL (BEAKER) (test puol=108) 225 mg/dL HDL CHOLESTEROL (BEAKER) (test fbpq=072) 58 mg/dL LDL CHOLESTEROL CALCULATED (BEAKER) (test qqtk=364) 155 mg/dL Triglyceride Reference Range: Low Risk <150 Borderline 150-199 High Risk 200-499 Very High Risk >=500Cholesterol Reference Range: Low Risk <200 Borderline 200-239 High Risk >240HDL Cholesterol Reference Range: Low Risk >=60 High Risk <40LDL Cholesterol Reference Range: Optimal <100 Near Optimal 100-129 Borderline 130-159 High 160-189 Very High >=190 BASIC METABOLIC [id number] 11:13:00* Test Item Value Reference Range Comments SODIUM (BEAKER) (test rawt=991) 143 meq/L 136-145 POTASSIUM (BEAKER) (test ykxt=378) 5.5 meq/L 3.5-5.1 CHLORIDE (BEAKER) (test ugaa=957) 105 meq/L 98-107 CO2 (BEAKER) (test jejj=413) 26 meq/L 22-29 BLOOD UREA NITROGEN (BEAKER) (test dalp=602) 16 mg/dL 7-21 CREATININE (BEAKER) (test fuga=676) 1.12 mg/dL 0.57-1.25 GLUCOSE RANDOM (BEAKER) (test wjwh=830) 93 mg/dL 70-105 CALCIUM (BEAKER) (test blnh=631) 10.0 mg/dL 8.4-10.2 EGFR (BEAKER) (test cfkn=1137) 65 mL/min/1.73 sq m ESTIMATED GFR IS NOT ACCURATE CREATININE CLEARANCE IN PREDICTING GLOMERULAR FILTRATION RATE. ESTIMATED GFR IS NOT APPLICABLE FOR DIALYSIS PATIENTS. HEPATIC FUNCTION [id number] 11:13:00* Test Item Value Reference Range Comments TOTAL PROTEIN (BEAKER) (test bhzj=202) 8.2 gm/dL 6.0-8.3 ALBUMIN (BEAKER) (test jkso=2699) 4.2 g/dL 3.5-5.0 BILIRUBIN TOTAL (BEAKER) (test aslw=881) 0.7 mg/dL 0.2-1.2 BILIRUBIN DIRECT (BEAKER) (test ajzm=673) 0.3 mg/dL 0.1-0.5 ALKALINE PHOSPHATASE (BEAKER) (test spea=972) 65 U/L 40-150 AST (SGOT) (BEAKER) (test nxuk=319) 31 U/L 5-34 ALT (SGPT) (BEAKER) (test fzdl=267) 26 U/L 6-55 CBC W/PLT COUNT & AUTO [id number] 11:01:00* Test Item Value Reference Range Comments WHITE BLOOD CELL COUNT (BEAKER) (test srvz=204) 12.2 K/ L 4.0-10.0 RED BLOOD CELL COUNT (BEAKER) (test abrf=614) 5.51 M/ L 4.20-5.80 HEMOGLOBIN (BEAKER) (test bdmu=092) 15.3 GM/DL 13.0-16.8 HEMATOCRIT (BEAKER) (test gqva=237) 50.4 % 40.0-50.0 MEAN CORPUSCULAR VOLUME (BEAKER) (test icea=738) 91.5 fL 82.0-98.0 MEAN CORPUSCULAR HEMOGLOBIN (BEAKER) (test qubl=675) 27.7 pg 27.0-33.0 MEAN CORPUSCULAR HEMOGLOBIN CONC (BEAKER) (test wyxw=793) 30.3 GM/DL 32.0-36.0 RED CELL DISTRIBUTION WIDTH (BEAKER) (test ywme=091) 14.3 % 10.3-14.2 PLATELET COUNT (BEAKER) (test aras=833) 294 K/CU MM 150-430 MEAN PLATELET VOLUME (BEAKER) (test cepm=792) 7.3 fL 6.5-10.5 NUCLEATED RED BLOOD CELLS (BEAKER) (test jfgw=880) 0 /100 WBC 0-0 NEUTROPHILS RELATIVE PERCENT (BEAKER) (test dogb=414) 74 % LYMPHOCYTES RELATIVE PERCENT (BEAKER) (test pmcc=963) 17 % MONOCYTES RELATIVE PERCENT (BEAKER) (test gbqg=138) 6 % EOSINOPHILS RELATIVE PERCENT (BEAKER) (test vaqa=071) 2 % BASOPHILS RELATIVE PERCENT (BEAKER) (test uuzm=718) 1 % NEUTROPHILS ABSOLUTE COUNT (BEAKER) (test rumr=724) 8.98 K/ L 1.80-8.00 LYMPHOCYTES ABSOLUTE COUNT (BEAKER) (test pehl=124) 2.01 K/ L 1.48-4.50 MONOCYTES ABSOLUTE COUNT (BEAKER) (test lkqh=809) 0.79 K/ L 0.00-1.30 EOSINOPHILS ABSOLUTE COUNT (BEAKER) (test wpzx=923) 0.30 K/ L 0.00-0.50 BASOPHILS ABSOLUTE COUNT (BEAKER) (test ijwf=902) 0.09 K/ L 0.00-0.20 0.00CHEST SINGLE (PORTABLE) [place] [address] Patient Name: SIMON ORDAZ MR #: [id number] : 1945 Age/Sex: 72/M Req #: [id number] Adm Physician: Ordered by: ROBERTA CARLSON MD Report #: [id number] Location: ER Room/Bed: Procedure: [id number] DX/CHEST SINGLE (PORTABLE) Exam Date: 08/13/17 Exam Time: 0233 REPORT STATUS: Signed CHEST SINGLE (PORTABLE), 08/13/2017 2:33 AM Technique: CHEST SINGLE (PORTABLE) Comparison: 08/14/2016 Clinical history: Fall, found down Fin dings: Heart/mediastinum: Stable. Lungs/pleural spaces: Low lung volumes res ult in bibasilar vascular crowding/atelectasis. No pleural effusion or pneumot horax. Bones: No acute abnormality seen. Impression: Low lung volumes w ithout acute abnormality Signed by: Dr Brannon Carney MD on 08/13/2017 3:29 A M Dictated By: BRANNON CARNEY MD 8 Transcribed By: JONI on 08/13/17328 COPY TO: ROBERTA CARLSON MD PELVIS AP 1-2 VIEWS [place] [address] Patient Name: SIMON ORDAZ MR #: [id number] : 1945 Age/Sex: 72/M Req #: [id number] Adm Physician: Ordered by: ROBERTA CARLSON MD Report #: [id number] Location: ER Room/Bed: Procedure: DX/PELVIS AP 1-2 VIEWS Exam Slade e: 08/13/17 Exam Time: 0233 REPORT STATUS: Sign ed PELVIS AP 1-2 VIEWS Comparison: None Clinical history: Fall, pain Findings: Moderate bilateral hip and visualized lumbosacral degenerative c hanges. No acute fracture or dislocation on single provided view. Impress ion: No acute bony abnormality Signed by: Dr Brannon Carney MD on 08/13/19 3:30 AM Dictated By: BRANNON CARNEY MD 9 Transcribed By: JONI on 08/13/17329 COPY TO: ROBERTA CARLSON MD CT BRAIN WO [place] [address] Patient Name: SIMON ORDAZ MR #: [id number] : 1945 Age/Sex: 72/M Req #: [id number] Adm Physician: Ordered by: ROBERTA CARLSON MD Report #: [id number] Location: ER Room/Bed: Procedure: [id number] CT/CT BRAIN WO Exam Date: 08/13 Exam Time: 0233 REPORT STATUS: Signed EX AMINATION: Head CT without contrast. HISTORY:Fall. COMPARISON:Non e. TECHNIQUE: Multidetector axial images were obtained from the foramen magnum to the vertex without contrast. The images were reconstructed using brain and bone algorithms. Thin section brain images were reformatted into coronal and sagittal planes. Intravenous contrast: None IMAGE QUALITY: Accepta ble. FINDINGS: Skull/scalp: Small left posterior parietal scalp edema /hematoma with few scattered foci of soft tissue emphysema. No acute depress ed or displaced calvarial fracture. Parenchyma: Nonspecific few, scattered supratentorial white matter hypodensity are likely related to small vessel is chemic changes. No mass or acute major vascular territorial infarct. Art eries: No density suggestive of thrombosis. Dural sinuses: No abnormal density suggestive of thrombosis. Ventricles: Mild compensated dilatation due to volume loss. No hydrocephalus. Extra-axial spaces: Trace hyperde nsity in anterior interhemispheric fissure, parasagittal frontal cortical sulc i adjacent to the anterior interhemispheric fissure and cingulate sulcus repre sents trace acute subarachnoid hemorrhage. No midline shift or herniation. Brain volume: Generalized age-related cerebral volume loss. Craniocervi sheree junction: No mass, Chiari malformation, or basilar invagination. Diane la: No mass. Paranasal/mastoid sinuses: Imaged portions unremarkable. IMPRESSION: 1. Small left posterior parietal scalp edema/hematoma. No ac woodrow fracture. 2. Trace acute subarachnoid hemorrhage in the anterior inter hemispheric fissure, cingulate sulcus and parasagittal frontal cortical sulci. No midline shift or herniation. 3. Mild supratentorial white matter licha rovascular ischemic changes. 4. Generalized age-related cerebral volume lo ss. Signed by: Dr. Estefany Glover M.D. on 08/13/2017 3:51 AM Dictate d By: ESTEFANY GLOVER MD 0 COPY TO: ROBERTA CARLSON MD CT CERVICAL SPINE WO [place] [address] Patient Name: SIMON ORDAZ MR #: [id number] : 1945 Age/Sex: 72/M Req #: [id number] Adm Physician: Ordered by: ROBERTA CARLSON MD Report #: [id number] Location: ER Room/Bed: Procedure: [id number] CT/CT CERVICAL SPINE WO Exam Da te: 08/13/17 Exam Time: 0233 REPORT STATUS: Sig mandy History: Fall. Comparison studies: None Technique: Axial tom ges were obtained through the cervical region.. Coronal and sagittal images re constructed from the axial data.. Intravenous contrast: None Findings: Fractures: None. Soft tissue injuries: None. Atlantoaxial articulation : Intact. Alignment: Loss of normal cervical lordosis is either positional or due to muscle spasm.. No scoliosis. Cervicomedullary junction: No abnormalit ies. The foramen magnum is patent. Soft tissues: No abnormalities. Verte brae: No fractures, infection or neoplasm. Degenerative changes: C2-C 3: Mild right and moderate left facet arthrosis without significant foraminal stenosis. C3-C4: Mild degenerative disc disease. Mild right foraminal stenos is due to facet and uncovertebral arthrosis. C4-C5: Mild degenerative disc dis ease. Moderate right and mild left foraminal stenosis due to facet and uncover tebral arthrosis. C5-C6: Moderate degenerative disc disease. Posterior dis c osteophyte complex without canal stenosis. Mild right foraminal stenosis due to facet and uncovertebral arthrosis. C6-C7: Posterior disc osteophyte comple x without canal stenosis. Mild right foraminal stenosis due to facet and uncov ertebral arthrosis.. IMPRESSION: 1. No acute cervical spine fracture. Loss of normal cervical lordosis is either positional or due to muscle spasm. 2. Ligament, spinal cord and or vascular abnormalities cannot be excluded on the basis of this examination. 3. Cervical spondylosis as detailed a lucas. Signed by: Dr. Estefany Glover M.D. on 08/13/2017 3:56 AM Dictated By: ESTEFANY GLOVER MD 5 COPY TO: ROBERTA CARLSON MD MRI SPINE LUMBAR WO [place] [address] Patient Name: SIMON ORDAZ MR #: [id number] : 1945 Age/Sex: 72/M Req #: [id number] Adm Physician: Ordered by: TANMAY DIAZ MD Report #: [id number] Location: MRI Room/Bed: Procedure: [id number] MRI/MRI SPINE LUMBAR WO Exam Da te: Exam Time: REPORT STATUS: Signed Exam: Lumbar spine MRI without IV contrast History: Low back pain, radiculopathy Comparison studies: Included lumbar spine from abdomen pelvis CT 09/07/2016 Technique: Sagittal and axial T2 , sagittal T1 and IR, axial spin density oblique. Intravenous contrast: None Findings: Number of lumbar vert ebral bodies: 5. Alignment: Normal lordosis. Mild thoracolumbar curvature c onvex to the left. Soft tissues: No T2 hyperintense inflammatory changes. Pa raspinal muscles: No signal abnormalities. Well-preserved. No atrophic change s Lower thoracic cord: Normal in signal and morphology. The tip of the conus is at L1. Cauda equina: No masses. No arachnoiditis. Vertebrae: Inc idental small T1 hyperintense vertebral body hemangiomas at L4 and L5. No comp ression fractures, infection or neoplasm. Scattered endplate Schmorl's nodes from inferior T10 to superior T1. Degenerative changes: T10-T11 throug h T12-L1: Mildly degenerated disks. Patent canal and foramina. L1-L2: Minimal degenerative retrolisthesis of L1 on L2 with associated uncovered disc /disc bulge and mild facet arthrosis result in moderate bilateral foraminal st enosis. No canal stenosis. L2-L3: Mildly degenerated disc. Disc bulge an d facet arthrosis result in moderate left and mild right foraminal stenosis. N o significant canal stenosis. L3-L4: Mildly degenerated disc. Symmetric d isc bulge and mild facet arthrosis result in mild bilateral foraminal stenosis . No significant canal stenosis. L4-L5: Mildly degenerated disc. Symmetri c disc bulge and mild right and moderate left facet arthrosis result in mild b ilateral foraminal stenosis. No significant canal stenosis. L5-S1: Mild ly degenerated disc. Disc bulge with small central disc protrusion with annula r fissure and moderate facet arthrosis with mild bilateral foraminal stenosis. No significant canal stenosis. The right facet joint is mildly widened by a s mall facet joint effusion. IMPRESSION: Degenerative changes most n otable for: 1. Moderate bilateral L1-L2 and left L2-L3 foraminal stenosis. 2. Mild multilevel disc degeneration. 3. Small central disc protrusion w ith annular fissure at L5-S1. 4. Multilevel facet arthrosis, worse at L4-L5 a nd at L5-S1. 5. No canal stenosis. Signed by: Dr. Bashir Castillo M.D. on 06/01/2017 7:11 AM Dictated By: BASHIR CASTILLO MD Electronically Rowena d By: BASHIR CASTILLO MD on 06/01/17 0711 Transcribed By: JONI on 06/01/17 0 711 COPY TO: TANMAY DIAZ MD DIAPHRAGMATIC FLUOR-SNIFF TEST [place] [address] Patient Name: SIMON ORDAZ MR #: [id number] : Age/Sex: 72/M Req #: [id number] Adm Physician: Ordered by: ALLISON PINZON MD Report #: [id number] Location: DX Room/Bed : Procedure: [id number] DX/DIAPHRAGMATIC FLUOR-SNIFF T EST Exam Date: 05/04/17 Exam Time: 1430 REPORT STATUS: Signed PROCEDURE: DIAPHRAGMATIC FLUOROSCOPY (SNIFF TEST) TECHNIQ UE: Multiple fluoroscopic images of bilateral hemidiaphragms were obtained during expiration and inspiration, as well as during rapid inspirations (snif f) INDICATION: Left diaphragmatic elevation. COMPARISON: [facility], CT, CT CHEST WO, 03/08/2017, 12:04. FINDINGS: Review of prior CT chest dated 03/08/2017 shows posterior eventration of the right hemidiaphragm and anterior eventration of the left hemidiaphragm. Stable linear subse gmental atelectasis and/or scarring is noted in the right lower lobe. T here is normal symmetrical excursion of both hemidiaphragms during inspiratio n and expiration. No paradoxical motion. CONCLUSION: 1. Bilateral diaph ragmatic eventration, as described. 2. No motion abnormality is identified. Harlan Mariano M.D. Dictated by: Harlan Mariano M.D. on 05/04/2017 at 18:07 Electronically approved by: Harlan levine M.D. on 05/04/2017 at 18:07 Dictated By: HARLAN MARIANO MD 06 Transcribed By: IN E on 05/04/171806 COPY TO: ALLISON PINZON MD
--- OUTSIDE RECORDS SUMMARY | 2018-10-04 04:22 | XMS REPORT | Summary of Care ---
Author Author SHARIF Veloz, FABIEN Organization Unknown Address Unknown Phone Unavailable Care Team Providers Care Core Feeder Name Role Phone FABIEN SIDDIQUI M.D. Unavailable Unavailable DESTINY KENDALL M.D. Unavailable Unavailable TANMAY DIAZ MD Unavailable Unavailable Fabien Siddiqui MD Unavailable Unavailable Unavailable Unavailable Functional Status Name Dates Details Functional status health issues are not documented Status: Name Dates Details Cognitive status health issues are not documented Status: Problems Name Dates Details Testosterone deficiency (259.9, E34.9) Status: Active Testicular pain (608.9, N50.819) Status: Active Persistent testicular pain (608.9, N50.9) Status: Active Morbid obesity (278.01, E66.01) Status: Active MRSA (methicillin resistant Staphylococcus aureus) (041.12, A49.02) Status: Active Abdominal wall abscess (682.2, L02.211) Status: Active Encounter for management of wound VAC Status: Active Medications Name Dates Details Multivitamins TABS TAKE 1 TABLET DAILY. * Start : 30-Mar-2008 Active Metoprolol Tartrate 25 MG Oral Tablet TAKE 1 TABLET BY MOUTH TWICE DAILY * Quantity: 180 Refills: 3 Active Testosterone Cypionate 200 MG/ML Intramuscular Solution INJECT 1 ML ONCE every 2 weeks * Quantity: 10 Refills: 0 DESTINY KENDALL M.D. * Start : 29-Aug-2017 Active Allergies and Adverse Reactions Name Dates Details No Known Drug Allergies (Allergy) Status: Active Past Medical History Name Dates Details Abdominal wall abscess (682.2, L02.211) Status: Active Procedures Procedure Dates Details History of Laparoscopic adjustable gastric banding Completed History of Ventral hernia repair Completed Immunization Name Dates Details PPD Lot #: [id number] on: 30-Mar-2008 Social History Name Dates Details - Status: Name Dates Details Former smoker Vital Signs Date Test Result Details 93-Bpb-536190:28 BP Systolic 134 mm[Hg] Status: Comments: Location: LUE; Position: Sitting BP Diastolic 74 mm[Hg] Status: Comments: Location: LUE; Position: Sitting Height 66 in Status: Weight 233 lb Status: Body Mass Index Calculated 37.61 kg/m2 Status: Body Surface Area Calculated 2.13 m2 Status: Temperature 98.6 f Status: Comments: Method: Oral Heart Rate 84 /min Status: 1-Mpx-251088:27 BP Systolic 140 mm[Hg] Status: Comments: Location: LUE; Position: Sitting BP Diastolic 82 mm[Hg] Status: Comments: Location: LUE; Position: Sitting Height 66 in Status: Weight 233.3125 lb Status: Body Mass Index Calculated 37.66 kg/m2 Status: Body Surface Area Calculated 2.14 m2 Status: Temperature 97.3 f Status: Comments: Method: Oral Heart Rate 89 /min Status: 48-Scy-776736:41 BP Systolic 133 mm[Hg] Status: Comments: Location: LUE; Position: Sitting BP Diastolic 78 mm[Hg] Status: Comments: Location: LUE; Position: Sitting Height 66 in Status: Weight 237 lb Status: Body Mass Index Calculated 38.25 kg/m2 Status: Body Surface Area Calculated 2.15 m2 Status: Temperature 97.9 f Status: Comments: Method: Oral Heart Rate 81 /min Status: :00 BP Systolic 124 mm[Hg] Status: Comments: Location: LUE; Position: Sitting BP Diastolic 76 mm[Hg] Status: Comments: Location: LUE; Position: Sitting Height 66 in Status: Weight 230 lb Status: Body Mass Index Calculated 37.12 kg/m2 Status: Body Surface Area Calculated 2.12 m2 Status: Temperature 98 f Status: Comments: Method: Oral Heart Rate 88 /min Status: Results Date Description Value Details 40-Ssl-395333:30 Tobacco Use Screening Completed DONE Plan of Care Name Dates Details Planned Observations Planned Goals not documented Interventions Provided Plan* 1. Incision and drainage with possible removal of mesh. [facility]. 1 hour induration. Instructions Name Dates Details Instructions not documented Encounters Appointment; FABIEN SIDDIQUI M.D. Encounter Diagnosis: Problem not documented On: 20-Oct-2016 10:30 Appointment; DESTINY KENDALL M.D. Encounter Diagnosis: Problem not documented On: 25-Oct-2016 10:15 Appointment; FABIEN SIDDIQUI M.D. Encounter Diagnosis: Problem not documented On: 01-Dec-2016 11:00 Appointment; GERONIMO MCCABE NP Encounter Diagnosis: Problem not documented On: 19-Dec-2016 13:30 Appointment; GERONIMO MCCABE NP Encounter Diagnosis: Problem not documented On: 16-Jan-2017 14:00 Appointment; FABIEN SIDDIQUI M.D. Encounter Diagnosis: Problem not documented On: 06-Feb-2017 12:30 Appointment; FABIEN SIDDIQUI M.D. Encounter Diagnosis: Problem not documented On: 20-Feb-2017 10:00 Appointment; FABIEN SIDDIQUI M.D. Encounter Diagnosis: Problem not documented On: 27-Feb-2017 13:00 Appointment; FABIEN SIDDIQUI M.D. Encounter Diagnosis: Problem not documented On: 13-Mar-2017 14:00 Appointment; FABIEN SIDDIQUI M.D. Encounter Diagnosis: Problem not documented On: 15-May-2017 13:00 Appointment; GERONIMO MCCABE NP Encounter Diagnosis: Problem not documented On: 11-Jul-2017 13:00 Appointment; FABIEN SIDDIQUI M.D. Encounter Diagnosis: Problem not documented On: 17-Jul-2017 14:00 Appointment; GERONIMO MCCABE NP Encounter Diagnosis: Problem not documented On: 04-Sep-2017 14:00 Appointment; GERONIMO MCCABE NP Encounter Diagnosis: Problem not documented On: 26-Feb-2018 12:00 Appointment; FABIEN SIDDIQUI M.D. Encounter Diagnosis: Problem not documented On: 26-Apr-2018 11:15 Appointment; FABIEN SIDDIQUI M.D. Encounter Diagnosis: Problem not documented On: 03-May-2018 11:00 Appointment; FABIEN SIDDIQUI M.D. Encounter Diagnosis: Problem not documented On: 31-May-2018 7:45 Appointment; FABIEN SIDDIQUI M.D. Encounter Diagnosis: Problem not documented On: 16-Jul-2018 15:00 Appointment; FABIEN SIDDIQUI M.D. Encounter Diagnosis: Problem not documented On: 25-Jul-2018 11:00 Appointment; FABIEN SIDDIQUI M.D. Encounter Diagnosis: Problem not documented On: 30-Jul-2018 11:30 Appointment; FABIEN SIDDIQUI M.D. Encounter Diagnosis: Problem not documented On: 16-Aug-2018 12:00 Appointment; FABIEN SIDDIQUI M.D. Encounter Diagnosis: Problem not documented On: 30-Aug-2018 10:30 Appointment; FABIEN SIDDIQUI M.D. Encounter Diagnosis: Problem not documented On: 10-Sep-2018 11:30 Appointment; FABIEN SIDDIQUI M.D. Encounter Diagnosis: Problem not documented On: 17-Sep-2018 11:30 Appointment; FABIEN SIDDIQUI M.D. Encounter Diagnosis: Problem not documented On: 24-Sep-2018 11:30
--- OUTSIDE RECORDS SUMMARY | 2018-10-04 04:22 | XMS REPORT | Summary of Care ---
Author Author [facility] Address Unknown Phone Unavailable Encounter HQ Katelyn_rola(FIN) [id number] Date(s): 07/30/17 - 07/31/17 [facility] [address] [place] [phone] Vital Signs No data available for this [...]
--- OUTSIDE RECORDS SUMMARY | 2018-10-04 04:22 | XMS REPORT | Summary of Care ---
Author Author [facility] Organization [facility] Address Unknown Phone Unavailable Encounter LAUREN Renee(GERARDO) [id number] Date(s): 02/16/17 - 02/16/17 [facility] [address] [place] [address] [phone] Discharge Disposition: Home or Self Care Attending Physician: Fabien Siddiqui MD Referring Physician: Fabien Siddiqui MD Vital Signs Most recent to 1 oldest [Reference Range]: Height 167.64 cm (02/16/17 3:02 PM) Weight 90.909 kg (02/16/17 3:02 PM) Body Mass Index 32.35 m2 (02/16/17 3:02 PM) Problem List Condition Effective Dates Status Health Status Informant Atrial Resolved fibrillation(Confirm ed) CKD (chronic kidney Resolved disease) stage 3, GFR 30-59 ml/min(Confirmed) Facial Resolved neuropathy(Confirmed ) GERD Resolved (gastroesophageal reflux disease)(Confirmed) HTN Resolved (hypertension)(Confi rmed) Hypothyroid(Confirme Resolved d) Incisional Resolved hernia(Confirmed) Obesity(Confirmed) Active Allergies, Adverse Reactions, Alerts Substance Reaction Severity Status NKDA Active Medications fentaNYL - one time ICU bolus dose 50 microgram, Route: IVP, Drug form: INJ, ONCE, Dosing Weight 90.909, kg, Start date: 02/16/17 15:02:00 CDT, Stop date: 02/16/17 15:02:00 CDT Start Date: 02/16/17 Stop Date: 02/16/17 Status: Completed Results No data available for this section Immunizations No data available for this section Procedures Procedure Date Related Diagnosis Body Site Image-guided fluid collection drainage by 02/16/17 catheter (eg, abscess, hematoma, seroma, lymphocele, cyst); peritoneal or retroperitoneal, percutaneous Hernia repair 10/05/16 Bariatric operative procedure1 Colostomy [...] Assessment and Plan Extracted from: Title: IR Author: Paresh Dubon MD Date: 02/16/17 Interventional Radiology H&P History of Present Illness: Post gastric band seroma. Past Medical History: Atrial fibrillation Hypothyroid GERD (gastroesophageal reflux disease) HTN (hypertension) Incisional hernia CKD (chronic kidney disease) stage 3, GFR 30-59 ml/min Facial neuropathy Past Surgical History: Hernia repair: 10/05/16 Procedure Procedure Colostomy Bariatric operative procedure Social Hx: Employment/School Details: Status: Retired. Highest education level: [...] Uncle: [place] - Cancer of colon Allergies Reviewed: Allergies: NKDA Current Medications: Medications (0) Active Scheduled Meds: None Unscheduled Meds: None PRN Meds: None One Time Meds: None Continuous Infusions: None Constitutional Systems: no fever, no chills, no fatigue HEENT: no headache, no blurred vision, no sore throat Cardiovascular: no chest pain, no SOB, no orthopnea Respiratory: same as CVS, no cough, no hemoptysis Gastrointestinal: no abdominal pain Genitouriniary: no dysuria, no frequency, no urgency Musculoskeletal: no joint pain, no myalgia Integumentary: no rash or open wound, Neurological: no seizure, no dizziness Psychiatric: no anxiety and/or depression Endocrine: no polyuria, no polydipsia Hematologic/Lymphatic: no bleeding, no bruising Physical Examination: Gen: AAO x3, NAD, WNWD VitalsTmp(F)Tmp(C)[id number] (no data in last 48 hours) 24 Hr Tmax: No Data AvailableVital Signs are the last 5 in the past 48 hours. 24 Hr Tmin: No Data AvailableWeights are the last 5 in 60 days, plus initial. DateWt(kg)Wt(lb)Ht(cm)Ht(in)MethodBMIBSA (no weights recorded) (no point of care glucose results charted in last 24 hours) (no score information charted) (no lines, tubes, drains information documented) (no surgical procedures documented) HEENT: normocephalic, PERRLA, no drainage, moist mucous Neck: Supple, no JVD Resp: Clear to ausculation bilaterally CV: RR, no murmurs, rubs, or gallops Abd: soft, non-tender, non-distended, BS present, no palpable masses Extrem: no edema Neuro: cranial nerve intact Skin: Clear, no rashes or jaundice Impression/Plan: Drainage catheter placement. THANK YOU FOR CONSULTING INTERVENTIONAL RADIOLOGY, IF YOU HAVE ANY QUESTIONS, PLEASE CONTACT [phone].
--- OUTSIDE RECORDS SUMMARY | 2018-10-04 04:22 | XMS REPORT | Summary of Care ---
Author Author [facility] Organization [facility] Address Unknown Phone Unavailable Encounter HQ Katelyn_rola(FIN) [id number] Date(s): 08/02/17 - 08/03/17 [facility] [address], [address] [place], [place] [address] [phone] Vital Signs [...]
[2018-10-04 04:40] LABS: BASOPHILS # (AUTO) 0.1 (0.0-0.1); BASOPHILS % 0.5 % (0.0-1.0); EOSINOPHILS # (AUTO) 0.8 (0.0-0.4); EOSINOPHILS % 5.7 % (0.0-6.0); HEMOGLOBIN 10.7 g/dL (14.0-18.0); LYMPHOCYTES # (AUTO) 1.4 (1.0-3.2); LYMPHOCYTES % 9.9 % (18.0-39.1); MEAN CORPUSCULAR HEMOGLOBIN 24.5 pg (28-32); MEAN CORPUSCULAR HGB CONC 31.5 g/dL (31-35); MEAN CORPUSCULAR VOLUME 77.8 fL (81-99); MONOCYTES # (AUTO) 1.3 (0.2-0.8); NEUTROPHILS # (AUTO) 10.7 (2.1-6.9); NEUTROPHILS % 74.4 % (38.7-80.0); PLATELET COUNT 222 x10e3/uL (140-360); RED BLOOD COUNT 4.37 x10e6/uL (4.3-5.7); RED CELL DISTRIBUTION WIDTH 17.1 % (11.7-14.4)
[2018-10-04 04:59] LABS: ALBUMIN 3.3 g/dL (3.5-5.0); ALBUMIN/GLOBULIN RATIO 0.8 (0.8-2.0); CALCIUM 9.6 mg/dL (8.4-10.2); CREATININE, SERUM 1.45 mg/dL (0.72-1.25)
--- NOTE | 2018-10-04 04:59 | Diagnostic Imaging Report ---
EXAMINATION: CHEST SINGLE (PORTABLE) INDICATION: ^FEVER ^[id number] ^[id number] ^Y COMPARISON: 08/13/2017 FINDINGS: AP view TUBES and LINES: Right PICC in place with tip overlying SVC. LUNGS: Limited study due to low lung volumes and body habitus. Central vascular congestion. PLEURA: No significant pleural effusion or pneumothorax. HEART AND MEDIASTINUM: The cardiomediastinal silhouette is enlarged on this AP view. BONES AND SOFT TISSUES: No acute osseous lesion. Soft tissues are unremarkable. UPPER ABDOMEN: No free air under the diaphragm. IMPRESSION: Limited by body habitus and low lung volumes. Enlarged cardiomediastinal silhouette and central vascular congestion. Underlying infiltrate in the perihilar regions cannot be excluded. Signed by: Dr. Juno Florentino MD on 10/04/2018 4:56 AM
[2018-10-04 05:35] LABS: CLARITY,URINE HAZY (CLEAR); COLOR,URINE YELLOW (YELLOW)
[2018-10-04 05:36] LABS: BILIRUBIN,URINE NEGATIVE (NEGATIVE); KETONES,URINE NEGATIVE (NEGATIVE); LEUKOCYTE ESTERASE ,URINE NEGATIVE (NEGATIVE); NITRITE,URINE NEGATIVE (NEGATIVE); PROTEIN,URINE DIPSTICK 1+ (NEGATIVE); URINE UROBILINOGEN 0.2 mg/dL (0.2 - 1)
[2018-10-04 05:41] LABS: EPITHELIAL CELLS,URINE FEW /LPF
== END 2018-10-04 07:06 | disposition home or self-care (01) ==
LOC: ER 04:16
DX: R50.9 Fever, unspecified (principal); R06.00 Dyspnea, unspecified; I10 Essential (primary) hypertension; K21.9 Gastro-esophageal reflux disease without esophagitis; N18.9 Chronic kidney disease, unspecified; E11.40 Type 2 diabetes mellitus with diabetic neuropathy, unspecified; Z98.84 Bariatric surgery status
CPT/HCPCS: 36415; 71045; 80053; 81001; 82550; 82553; 83605; 84484; 85025; 87040; 87086; 87400; 93005; 99284

== ENCOUNTER 2020-01-19 08:25 | Inpatient (IN) | payer MEDICARE, OTHER ==
[2020-01-15 13:45] LABS: BASOPHILS # (AUTO) 0.1 (0.0-0.1); BASOPHILS % 0.9 % (0.0-1.0); EOSINOPHILS # (AUTO) 0.3 (0.0-0.4); EOSINOPHILS % 3.3 % (0.0-6.0); HEMATOCRIT 45.3 % (38.2-49.6); HEMOGLOBIN 14.6 g/dL (14.0-18.0); LYMPHOCYTES # (AUTO) 2.2 (1.0-3.2); LYMPHOCYTES % 24.4 % (18.0-39.1); MEAN CORPUSCULAR HEMOGLOBIN 29.4 pg (28-32); MEAN CORPUSCULAR HGB CONC 32.2 g/dL (31-35); MEAN CORPUSCULAR VOLUME 91.1 fL (81-99); MONOCYTES # (AUTO) 0.7 (0.2-0.8); MONOCYTES % 7.4 % (4.4-11.3); NEUTROPHILS # (AUTO) 5.8 (2.1-6.9); NEUTROPHILS % 63.6 % (38.7-80.0); PLATELET COUNT 229 x10e3/uL (140-360); RED BLOOD COUNT 4.97 x10e6/uL (4.3-5.7); RED CELL DISTRIBUTION WIDTH 13.7 % (11.7-14.4)
--- NOTE | 2020-01-15 13:45 | Diagnostic Imaging Report ---
EXAM: CHEST 2 VIEWS DATE: 01/15/2020 1:20 PM INDICATION: Preoperative evaluation COMPARISON: 09/11/2019 FINDINGS: The trachea is midline. There are unchanged right basilar opacity suggestive of atelectasis/scarring. There is no evidence for new large focal consolidation, pneumothorax, or significant pleural effusion. The cardiomediastinal silhouette is stable in appearance. Degenerative changes noted of the visualized spine. No acute osseous abnormality is identified. IMPRESSION: No acute cardiopulmonary process or significant interval change identified from 09/11/2019. Signed by: Dr. Kyle Wen MD on 01/15/2020 1:41 PM
[~2020-01-19] VITALS: Ht 167.6 cm; Wt 99.8 kg
[~2020-01-19 08:25] MED LIST changes: +CARBIDOPA-LEVO1 EACH PO; +DIOVAN80 MG PO; +NORCO 10-325 T1 EACH PO; +PROBIOTIC & AC1 EACH PO; +RANITIDINE PO; +ROPIVACAINE 246.25 MG, EPINEPHRINE HCL 1:1000 1ML 0.5 MG, CLONIDINE HCL 0.08 MG, KETORO... INJ ONE; +SINEMET 25-1001 EACH PO; +SYMBICORT 16010.2 GM INH
[2020-01-19] MEDS ORDERED: DEXAMETHASONE SOD PHOS 10 MG/1 ML VIAL ONE (08:48)
[2020-01-19] MEDS ORDERED: CELECOXIB 200 MG CAP ONE (08:48)
[2020-01-19] MEDS ORDERED: GABAPENTIN 300 MG CAP ONE (08:49)
[2020-01-19] MEDS ORDERED: CEFAZOLIN SOD 1 GM/NS 50ML 100 ML IV ONE (08:49)
[2020-01-19] MEDS ORDERED: VANCOMYCIN HCL 1,000 MG ONE (10:19)
[2020-01-19] MEDS ORDERED: SODIUM CHLORIDE 0.9% 500ML 500 ML ONE (10:19)
[2020-01-19] MEDS ORDERED: BACITRACIN 50,000 UNIT VIAL ONE (10:19)
[2020-01-19] MEDS ORDERED: BUPIVACAINE 7.5MG/ML /DEXTROSE 82.5MG/ML 2 ML AMP INJ ONE (10:24)
[2020-01-19] MEDS ORDERED: DOCUSATE SODIUM 100 MG CAP PO PRN (13:15)
[2020-01-19] MEDS ORDERED: HYDROCODONE/APAP 5MG-325MG TAB PO PRN (13:15)
[2020-01-19] MEDS ORDERED: HYDROCODONE/APAP 7.5MG-325MG 1 EA TAB PO PRN (13:15)
[2020-01-19] MEDS ORDERED: DIPHENHYDRAMINE HCL INJ 50 MG/ML VIAL IV PRN (13:15)
[2020-01-19] MEDS ORDERED: ACETAMINOPHEN 650 MG SUPP PR PRN (13:15)
[2020-01-19] MEDS ORDERED: ONDANSETRON HCL INJ 2MG/ML 2ML 2 MG/ML VIAL IV PRN (13:15)
[2020-01-19] MEDS ORDERED: HYDROMORPHONE 1MG/1ML INJ ONE (13:41)
--- OUTSIDE RECORDS SUMMARY | 2020-01-19 13:48 | XMS REPORT | Clinical Summary ---
Author Author [facility] Organization [facility] Address Unknown Phone Unavailable Care Team Providers Care Carding Doubler Name Role Phone Chaitanya Camarena MD PCP Allergies No Known Allergies Medications End Date Status Medication Sig Dispensed Refills Start Date Active XARELTO 20 mg tablet Take 20 mg by 1 mouth once 7 daily. with food Active torsemide (DEMADEX) 10 MG Take 10 mg by 3 02/11 tablet mouth every 7 morning. Active omeprazole (PriLOSEC) 20 Take 20 mg by 1 04/02 MG capsule mouth once 7 daily. Active levothyroxine (SYNTHROID, Take 125 mcg 2 02/10 LEVOXYL) 75 mcg tablet by mouth once 7 daily. Active sertraline (ZOLOFT) 100 TAKE 1 TABLET 0 MG tablet BY MOUTH 7 EVERY DAY ORALLY 90 Active testosterone cypionate INJECT 1 ML 3 02/11/ 01 (DEPOTESTOTERONE ONCE EVERY 2 7 CYPIONATE) 200 mg/mL WEEKS injection Active valsartan (DIOVAN) 80 MG Take 80 mg by 0 tablet mouth 2 (two) times a day. Active albuterol (PROAIR HFA) 90 Inhale 2 0 mcg/actuation inhaler puffs every 6 (six) hours as needed for wheezing. Active budesonide-formoterol Inhale 2 0 (SYMBICORT) 160-4.5 puffs 2 (two) mcg/actuation inhaler times a day. Active gabapentin (NEURONTIN) TAKE 1 TABLET 120 tablet 2 1 600 mg tabletIndications: BY MOUTH FOUR 8 Neuropathy TIMES A DAY Active gabapentin (NEURONTIN) TAKE 1 TABLET 120 tablet 2 0 600 mg tabletIndications: (600 MG 9 Neuropathy TOTAL) BY MOUTH 4 (FOUR) TIMES A DAY. Active carbidopa-levodopa TAKE 1 TABLET 180 tablet 3 07/03 (SINEMET CR) 50-200 mg BY MOUTH 9 per CR tabletIndications: TWICE A DAY Parkinson disease ([facility]) 07/02/2019 Discontinued (Reorder) carbidopa-levodopa Take 1 tablet 60 tablet 11 04/22 (SINEMET CR) 50-200 mg by mouth 2 8 per CR tabletIndications: (two) times a Parkinson disease ([facility]) day. 03/23/2019 Discontinued (Reorder) gabapentin (NEURONTIN) TAKE 1 TABLET 120 tablet 2 0 600 mg tabletIndications: (600 MG 9 Neuropathy TOTAL) BY MOUTH 4 (FOUR) TIMES A DAY. Active Problems Not on file Encounters Care Team Description Date Type Specialty Anabell Fregoso MD Parkinson disease ([facility]) 07/02/2019 Refill Neurology Anabell Fregoso MD Neuropathy 03/23/2019 Refill Neurology after 01/18/2019 Family History Relation Name Status Comments Father Mother Social History Date Tobacco Use Types Packs/Day Years Used Former Smoker Smokeless Tobacco: Current User Drinks/Week oz/Week Comments Alcohol Use 28 Cans of beer 7 Standard drinks or equivalent 35.0 Yes Sex Assigned at Date Recorded Not on file Industry Job Start Date Occupation Not on file Not on file Not on file Travel End Travel History Travel Start No recent travel history available. Last Filed Vital Signs Not on file Plan of Treatment Health Maintenance Due Date Last Done Comments COLONOSCOPY SCREENING 1995 SHINGLES VACCINES (#1) 1995 65+ PNEUMOCOCCAL VACCINE 2010 (1 of 2 - PCV13) INFLUENZA VACCINE 03/13/2020 Results Not on fileafter 01/18/2019 Insurance Type Payer Benefit Subscriber ID Effective Phone Address Plan / Dates Group HMO [facility] MEDICARE [facility] xxxxxxxxx 2017-P MEDICARE resent HMO/PPO Advance Directives For more information, please contact: [phone] Patient Extrusion Die Corrector Explanation Type Date Recorded Advance Directives, Living Will and Medical Power of Remediation Technician Advance Directives, 08/01/2017 8:23 AM Living Will and Medical Power of Remediation Technician
--- OUTSIDE RECORDS SUMMARY | 2020-01-19 13:48 | XMS REPORT | Clinical Summary ---
Author Author [facility] Address Unknown Phone Unavailable Care Team Providers Care Cat Cracker Operator Name Role Phone Chaitanya Camarena PCP Allergies [...] Active amiodarone (PACERONE) 200 200 mg. 0 07/13 1/201 MG tablet 6 Active metoprolol (LOPRESSOR) 25 Take 25 mg by 0 /0 2/201 MG tablet mouth. 7 Active albuterol HFA (PROAIR INHALE 2 0 04/19/20 1 HFA) 90 mcg/actuation (TWO) PUFFS 7 inhaler EVERY FOUR HOURS, NEEDED Active gabapentin (NEURONTIN) Take 600 mg 0 600 MG tablet by mouth 4 (four) times daily. Active Problems Problem Noted Date SOB (shortness of breath) on exertion 08/20/2017 Atrial fibrillation with RVR 08/14/2016 Social History Date Tobacco Use Types Packs/Day Years Used Never Smoker Smokeless Tobacco: Former Snuff Quit: 2016 User Tobacco Cessation: Counseling Given: Yes Alcohol Use Drinks/Week oz/Week Comments Yes 6 Cans of 3.6 beer Sex Assigned at Date Recorded Not on file Industry Job Start Date Occupation Not on file Not on file Not on file Travel End Travel History Travel Start No recent travel history available. Last Filed Vital Signs Not on file Plan of Treatment Not on file Results Not on fileafter 01/18/2019 Insurance Payer Benefit Subscriber ID Type Phone Address Plan / Group [facility] xxxxxxxxx MEDICARE MGD CARE MEDICARE HMO -[id number] Advance Directives For more information, please contact: [phone] [place] [address] Date Inactivated Comments Code Status Date Activated 08/25/2017 5:30 PM Full Code 08/24/2017 3:57 AM This code status was determined by: Patient 08/15/2016 4:35 PM Full Code 08/14/2016 11:45 PM This code status was determined by: Patient
--- OUTSIDE RECORDS SUMMARY | 2020-01-19 13:50 | XMS REPORT | Summary of Care ---
Author Author [facility] Home Health Organization [facility] Address Unknown Phone Unavailable Encounter LAUREN Renee(GERARDO) [id number] Date(s): 09/18/18 - 09/18/18 [facility] Home Health [address] [place] [address]- [phone] Discharge Disposition: Home or Self Care Attending Physician: Nick Rubio Referring Physician: Fabien Siddiqui MD Vital Signs Most recent to 1 oldest [Reference Range]: Blood Pressure 132/90 mmHg [90-140/60-90 mmHg] (09/18/18 1:00 PM) Respiratory Rate 18 BRMIN [14-20 BRMIN] (09/18/18 1:00 PM) Peripheral Pulse 83 bpm Rate [60-100 bpm] (09/18/18 1:00 PM) Problem List Condition Effective Dates Status Health Status Informan t Atrial Resolved fibrillation(Confirm ed) CKD (chronic kidney Resolved disease) stage 3, GFR 30-59 ml/min(Confirmed) COPD (chronic Active obstructive pulmonary disease)(Confirmed) Facial Resolved neuropathy(Confirmed ) GERD Active (gastroesophageal reflux disease)(Confirmed) HTN Active (hypertension)(Confi rmed) Hypothyroid(Confirme Active d) Incisional Resolved hernia(Confirmed) Obesity(Confirmed) Active YANDEL (obstructive Active sleep apnea)(Confirmed)1, 2 Parkinson's Active disease(Confirmed) 1pt hasnt been using his CPAP 2INSTRUCTED PT TO BRING CPAP TO DOS Allergies, Adverse Reactions, Alerts No Known Medication Allergies Medications No data available for this section Results No data available for this section Immunizations No data available for this section Procedures Procedure Date Related Diagnosis Body Site Status Hernia repair 12/15/16 Completed Hernia repair 10/05/16 Completed Cataract surgery 11/14/13 Completed Knee joint operation 11/14/12 Completed Bariatric operative procedure 10/13/02 Complete d Colostomy 09/14/01 Completed Bariatric operative procedure1 Completed Colostomy Completed Procedure2 Completed Procedure3 Completed 1lap band 2colostomy take down 3colon perforation required hospitalization Social History Social History Type Response Alcohol Current, Type Beer. Freque ncy: 1-2 times per week. Started age 68 Years. Alcohol use interferes with work or karishma e: No. Drinks more than intended: No. Others hurt by drinking: No. Read y to change: Yes. Household alcohol concerns: Yes. Employment/School Status: Retired. Exercise Exercise frequency: Daily. Self assessment: Poor condition. Exercise type: Walking. Sexual Sexual orientation: Heteros exual. Substance Abuse Use: None. Smoking Status Former smoker; Exposure to Tobacco Smoke None; Cigarette Smoking Last 365 Days Yes; Reg Smoking Cessation Manager Foreign ing Yes entered on: 10/07/18 Assessment and Plan No data available for this section
--- OUTSIDE RECORDS SUMMARY | 2020-01-19 13:50 | XMS REPORT | Summary of Care ---
Author Author [facility] Organization [facility] Address Unknown Phone Unavailable Encounter LAUREN Renee(GERARDO) [id number] Date(s): 07/25/18 - 07/26/18 [facility] [address] provided by [facility] [place] [address]- Encounter Diagnosis Infection following a procedure, superficial incisional surgical site, initial e ncounter (Final) - 07/31/18 Cutaneous abscess of abdominal wall (Final) - Unspecified atrial fibrillation (Final) - Chronic obstructive pulmonary disease, unspecified (Final) - Hypertensive chronic kidney disease with stage 1 through stage 4 chronic kidney disease, or unspecified chronic kidney disease (Final) - Chronic kidney disease, unspecified (Final) - Parkinson's disease (Final) - Hypothyroidism, unspecified (Final) - Hyperkalemia (Final) - Obstructive sleep apnea (adult) (pediatric) (Final) - Obesity, unspecified (Final) - Gastro-esophageal reflux disease without esophagitis (Final) - Personal history of nicotine dependence (Final) - Discharge Disposition: Home Care with Home Health Attending Physician: Fabien Siddiqui MD Referring Physician: Fabien Siddiqui MD Vital Signs 1 2 3 Most recent to oldest [Reference Range]: 167.64 cm (07/24/18 9:32 AM) Height 97.9 DegF (07/26/18 3:54 PM) 99.1 DegF (07/26/18 7:19 AM) 97.9 DegF (07/26/18 4:39 AM) Temperature Oral [96.4-99.1 DegF] 111/68 mmHg (07/26/18 3:54 PM) 94/56 mmHg (07/26/18 7:19 AM) 94/60 mmHg (07/26/18 4:39 AM) Blood Pressure [90-140/60-90 mmHg] 18 BRMIN (07/26/18 3:54 PM) 18 BRMIN (07/26/18 7:19 AM) 16 BRMIN (07/26/18 4:39 AM) Respiratory Rate [14-20 BRMIN] 80 bpm (07/26/18 3:54 PM) 84 bpm (07/26/18 7:19 AM) 78 bpm (07/26/18 4:39 AM) Peripheral Pulse Rate [60-100 bpm] 102.273 kg (07/25/18 11:15 AM) Weight 36.39 m2 (07/25/18 11:15 AM) Body Mass Index Problem List Condition [...] Reactions, Alerts No Known Medication Allergies Medications acetaminophen 1,000 mg, 2 tab, Route: PO, Drug form: TAB, Q6H, Dosing Weight 102.273, kg, PRN Pain Score 4-6, Start date: 07/26/18 7:41:00 FAMILY MEDIATOR, Duration: 30 day, Stop date: 0 08/25/18 7:40:00 FAMILY MEDIATOR Start Date: 07/26/18 Stop Date: 07/26/18 Status: Discontinued acetaminophen 500 mg oral tablet 1,000 mg = 2 tab, PO, Q6H, PRN Pain Score 4-6, 0 Refill(s) Start Date: 07/26/18 Stop Date: 09/26/18 Status: Discontinued ampicillin 500 mg oral capsule 500 mg = 1 cap, PO, QID, 0 Refill(s) Start Date: 07/24/18 Stop Date: 07/26/18 Status: Discontinued ANES flumazenil 0.2 mg, 2 mL, Route: IVP, Drug form: INJ, PRN, Dosing Weight 102.273, kg, PRN Be nzodiazepine Reversal, Initial dose, Start date: 07/25/18 14:27:00 FAMILY MEDIATOR, Duration : 30 day, Stop date: 08/24/18 14:26:00 FAMILY MEDIATOR Notes: (Same as: Romazicon) Start Date: 07/25/18 Stop Date: 07/25/18 Status: Discontinued ANES hydrALAZINE 10 mg, 0.5 mL, Route: IVP, Drug form: INJ, Q20Min, Dosing Weight 102.273, kg, ME N Elevated BP, Start date: 07/25/18 14:27:00 FAMILY MEDIATOR, Duration: 2 doses or times, St op date: Limited # of times Notes: (Same as: Apresoline)Push over 5 minutes Start Date: 07/25/18 Stop Date: 07/25/18 Status: Discontinued ANES HYDROmorphone 0.5 mg, 0.25 mL, Route: IVP, Drug form: INJ, Q5Min, Dosing Weight 102.273, kg, P RN Pain Score 7-10, Start date: 07/25/18 14:27:00 FAMILY MEDIATOR, Duration: 4 doses or time s, Stop date: Limited # of times Notes: Same as Dilaudid Start Date: 07/25/18 Stop Date: 07/25/18 Status: Discontinued ANES labetalol 10 mg, 2 mL, Route: IVP, Drug form: INJ, Q5Min, Dosing Weight 102.273, kg, PRN E levated BP, Start date: 07/25/18 14:27:00 FAMILY MEDIATOR, Duration: 5 doses or times, Stop date: Limited # of times Notes: (Same as: Normodyne, Trandate)Push over 2 minutes Give bolus over 2-3 mi nutes. Start Date: 07/25/18 Stop Date: 07/25/18 Status: Discontinued ANES naloxone 0.4 mg, 1 mL, Route: IVP, Drug form: INJ, Q2MIN, Dosing Weight 102.273, kg, PRN Narcotic Reversal, Start date: 07/25/18 14:27:00 FAMILY MEDIATOR, Duration: 8 doses or times , Stop date: Limited # of times Notes: Same as Narcan Start Date: 07/25/18 Stop Date: 07/25/18 Status: Discontinued ANES ondansetron 4 mg, 2 mL, Route: IVP, Drug form: INJ, ONCE, Dosing Weight 102.273, kg, PRN Lamonte sea & Vomiting, Start date: 07/25/18 14:27:00 FAMILY MEDIATOR Notes: (Same as: Agapito) MEDICATION WASTE Product Size: 4 mgProduct Was mary kate: ___ mg Start Date: 07/25/18 Stop Date: 07/25/18 Status: Discontinued ANES oxyCODONE 5 mg, 1 tab, Route: PO, Drug form: TAB, Q4H, Dosing Weight 102.273, kg, PRN Pain Score 4-6, Start date: 07/25/18 14:27:00 FAMILY MEDIATOR, Duration: 30 day, Stop date: 08/13 10/01 14:26:00 FAMILY MEDIATOR Notes: (Same as: Roxicodone) Start Date: 07/25/18 Stop Date: 07/25/18 Status: Discontinued carbidopa-levodopa 50 mg-200 mg oral tablet, extended release 1 tab, Route: PO, Drug Form: ERTAB, Dosing Weight 102.273, kg, BID, Start date: 07/26/18 12:00:00 FAMILY MEDIATOR, Duration: 30 day, Stop date: 08/25/18 9:00:00 FAMILY MEDIATOR Notes: "Do Not Crush" Take with milk or food. (Same As: Sinemet CR) Start Date: 07/26/18 Stop Date: 07/26/18 Status: Discontinued ceFAZolin (ANES) Route: IV, Drug form: INJ, ONCE, Stop date: 07/25/18 14:18:00 FAMILY MEDIATOR Start Date: 07/25/18 Stop Date: 07/25/18 Status: Completed ceFAZolin + sterile water 20 mL 2 gm, Route: IV, PRE OP, Start date: 07/25/18 5:00:00 FAMILY MEDIATOR, Duration: 1 day, Stop date: 07/26/18 4:59:00 FAMILY MEDIATOR, ABX Indication: Surgical Prophylaxis Notes: (Same As: Fnany Miranda) MEDICATION WASTE Product Size: 1000 mgP roduct Wasted: ___ mg Start Date: 07/25/18 Stop Date: 07/26/18 Status: Discontinued Dextrose 50% Syringe 25 gm, 50 mL, Route: IVP, Drug Form: INJ, Dosing Weight 102.273, kg, PRN, PRN Bl ood Glucose Results, Start date: 07/25/18 15:20:00 FAMILY MEDIATOR, Duration: 30 day, Stop d ate: 08/24/18 15:19:00 FAMILY MEDIATOR Start Date: 07/25/18 Stop Date: 07/26/18 Status: Discontinued Dextrose 50% Syringe 12.5 gm, 25 mL, Route: IVP, Drug Form: INJ, Dosing Weight 102.273, kg, PRN, PRN Blood Glucose Results, Start date: 07/25/18 15:20:00 FAMILY MEDIATOR, Duration: 30 day, Stop date: 08/24/18 15:19:00 FAMILY MEDIATOR Start Date: 07/25/18 Stop Date: 07/26/18 Status: Discontinued ePHEDrine (ANES) Route: IV, Drug form: INJ, ONCE, Stop date: 07/25/18 14:19:00 FAMILY MEDIATOR Start Date: 07/25/18 Stop Date: 07/25/18 Status: Completed fentaNYL (ANES) Route: IV, Drug form: INJ, ONCE, Stop date: 07/25/18 14:19:00 FAMILY MEDIATOR Start Date: 07/25/18 Stop Date: 07/25/18 Status: Completed gabapentin 600 mg oral tablet 600 mg, 2 cap, Route: PO, Drug form: CAP, QID, Dosing Weight 102.273, kg, Start date: 07/26/18 13:00:00 FAMILY MEDIATOR, Duration: 30 day, Stop date: 08/25/18 9:00:00 FAMILY MEDIATOR Notes: (Same as: Neurontin) Start Date: 07/26/18 Stop Date: 07/26/18 Status: Discontinued glucagon 1 mg, Route: IM, Drug form: PDR/INJ, PRN, Dosing Weight 102.273, kg, PRN Blood G lucose Results, Start date: 07/25/18 15:20:00 FAMILY MEDIATOR, Duration: 30 day, Stop date: 08/24/18 15:19:00 FAMILY MEDIATOR Start Date: 07/25/18 Stop Date: 07/26/18 Status: Discontinued glycopyrrolate (ANES) Route: IV, Drug form: INJ, ONCE, Stop date: 07/25/18 14:19:00 FAMILY MEDIATOR Start Date: 07/25/18 Stop Date: 07/25/18 Status: Completed heparin 5,000 unit, 1 mL, Route: SUB-Q, Drug form: INJ, PRE OP, Start date: 07/25/18 5:0 0:00 FAMILY MEDIATOR, Duration: 1 day, Stop date: 07/26/18 4:59:00 FAMILY MEDIATOR Notes: porcine heparin Start Date: 07/25/18 Stop Date: 07/25/18 Status: Completed Lactated Ringers Injection IV (ANES) 1000 mL Route: IV, Total Volume: 1,000, Start date: 07/25/18 13:08:00 FAMILY MEDIATOR, Stop date: 14:08:00 FAMILY MEDIATOR Start Date: 07/25/18 Stop Date: 07/25/18 Status: Completed levothyroxine 125 microgram, 1 tab, Route: PO, Drug form: TAB, Q630AM, Dosing Weight 102.273, kg, Start date: 07/26/18 12:00:00 FAMILY MEDIATOR, Duration: 30 day, Stop date: 08/25/18 6:3 0:00 FAMILY MEDIATOR Notes: Take 1 hour before or 2 hours after meal; Enteral feeds may interefere wi th the absorption of this medication. (Same as:Levothroid) Start Date: 07/26/18 Stop Date: 07/26/18 Status: Discontinued lidocaine (ANES) Route: IV, Drug form: INJ, ONCE, Stop date: 07/25/18 14:19:00 FAMILY MEDIATOR Start Date: 07/25/18 Stop Date: 07/25/18 Status: Completed midazolam (ANES) Route: IV, Drug form: SOLN, ONCE, Stop date: 07/25/18 14:19:00 FAMILY MEDIATOR Start Date: 07/25/18 Stop Date: 07/25/18 Status: Completed neostigmine (ANES) Route: IV, Drug form: INJ, ONCE, Stop date: 07/25/18 14:19:00 FAMILY MEDIATOR Start Date: 07/25/18 Stop Date: 07/25/18 Status: Completed Ofirmev 1 gm, 100 mL, Route: IV, Drug form: INJ, PRE OP, Start date: 07/25/18 5:00:00 CS T, Duration: 1 day, Stop date: 07/26/18 4:59:00 FAMILY MEDIATOR Notes: Infuse over 15 minutesDo not exceed 4gm/day of acetaminophen MEDICAT ION WASTE Product Size: 1000 mgProduct Wasted: ___ mg Start Date: 07/25/18 Stop Date: 07/26/18 Status: Discontinued ondansetron (ANES) Route: IV, Drug form: INJ, ONCE, Stop date: 07/25/18 14:19:00 FAMILY MEDIATOR Start Date: 07/25/18 Stop Date: 07/25/18 Status: Completed pantoprazole 40 mg, 1 tab, Route: PO, Drug form: ECTAB, Daily, Dosing Weight 102.273, kg, Sta rt date: 07/27/18 9:00:00 FAMILY MEDIATOR, Duration: 30 day, Stop date: 08/25/18 9:00:00 FAMILY MEDIATOR Notes: Tablet should not be chewed or crushed.(Same as: Protonix) Start Date: 07/27/18 Stop Date: 07/26/18 Status: Canceled phenylephrine (ANES) Route: IV, Drug form: INJ, ONCE, Stop date: 07/25/18 14:19:00 FAMILY MEDIATOR Start Date: 07/25/18 Stop Date: 07/25/18 Status: Completed ProAir HFA 90 mcg/inh inhalation aerosol with adapter 180 microgram, Route: INHALER, Drug Form: AERO/A, Dosing Weight 102.273, kg, Q6H , PRN Wheezing, Start date: 07/26/18 11:37:00 FAMILY MEDIATOR, Duration: 30 day, Stop date: 08/25/18 11:36:00 FAMILY MEDIATOR, wheezing, coughing, shortness of breath Notes: Albuterol 90 microgram/inh 8gm HFAWASTE: Aerosol - Return to Pharmacy [facility] as: Ventolin, Proventil Start Date: 07/26/18 Stop Date: 07/26/18 Status: Discontinued propofol (ANES) Route: IV, Drug form: INJ, ONCE, Stop date: 07/25/18 14:19:00 FAMILY MEDIATOR Start Date: 07/25/18 Stop Date: 07/25/18 Status: Completed remove patch 1 patch, Route: TOP, Drug form: ERFILM, Q72H, Start date: 07/25/18 5:00:00 FAMILY MEDIATOR, Duration: 30 day, Stop date: 08/21/18 5:00:00 FAMILY MEDIATOR Notes: Remove old patch before application of new patch. Start Date: 07/25/18 Stop Date: 07/26/18 Status: Discontinued rocuronium (ANES) Route: IV, Drug form: INJ, ONCE, Stop date: 07/25/18 14:19:00 FAMILY MEDIATOR Start Date: 07/25/18 Stop Date: 07/25/18 Status: Completed scopolamine 1 patch, Route: TOP, Drug form: ERFILM, PRE OP, Start date: 07/25/18 5:00:00 FAMILY MEDIATOR , Duration: 1 day, Stop date: 07/26/18 4:59:00 FAMILY MEDIATOR Notes: Change patch every 72 hours (Same as: Transderm-Scop) Start Date: 07/25/18 Stop Date: 07/25/18 Status: Completed sertraline 100 mg, 1 tab, Route: PO, Drug form: TAB, Bedtime, Dosing Weight 102.273, kg, St art date: 07/26/18 21:00:00 FAMILY MEDIATOR, Duration: 30 day, Stop date: 08/24/18 21:00:00 FAMILY MEDIATOR Notes: (Same as: Zoloft) Start Date: 07/26/18 Stop Date: 07/26/18 Status: Canceled Symbicort 160/4.5 inhalation aerosol with adapter 2 puff, Route: INHALATION, Drug Form: AERO/A, Dosing Weight 102.273, kg, BID, St art date: 07/26/18 17:00:00 FAMILY MEDIATOR, Duration: 30 day, Stop date: 08/25/18 9:00:[address] Notes: (Same as: Symbicort)WASTE: Aerosol - Return to Pharmacy Start Date: 07/26/18 Stop Date: 07/26/18 Status: Discontinued torsemide 20 mg, 1 tab, Route: PO, Drug form: TAB, Daily, Dosing Weight 102.273, kg, Start date: 07/26/18 13:00:00 FAMILY MEDIATOR, Duration: 30 day, Stop date: 08/25/18 9:00:00 FAMILY MEDIATOR Notes: (Same As: Demadex) Start Date: 07/26/18 Stop Date: 07/26/18 Status: Discontinued tramadol 50 mg, 1 tab, Route: PO, Drug form: TAB, Q6H, Dosing Weight 102.273, kg, PRN [place] n Score 7-10, Start date: 07/26/18 7:41:00 FAMILY MEDIATOR, Duration: 30 day, Stop date: 7:40:00 FAMILY MEDIATOR Notes: Not to exceed 400mg/day. (Same As: Ultram) Start Date: 07/26/18 Stop Date: 07/26/18 Status: Discontinued tramadol 50 mg oral tablet 50 mg = 1 tab, PO, Q6H, PRN Pain Score 7-10, # 12 tab, 0 Refill(s) Start Date: 07/26/18 Stop Date: 10/10/18 Status: Discontinued valsartan 80 mg, 1 tab, Route: PO, Drug form: TAB, BID, Dosing Weight 102.273, kg, Start d ate: 07/26/18 17:00:00 FAMILY MEDIATOR, Duration: 30 day, Stop date: 08/25/18 9:00:00 FAMILY MEDIATOR Notes: Same as Diovan Start Date: 07/26/18 Stop Date: 07/26/18 Status: Discontinued Veltassa 8.4 g oral powder for reconstitution 8.4 gm, PO, Daily, 0 Refill(s) Start Date: 07/24/18 Stop Date: 09/26/18 Status: Discontinued Results No data available for this section [...] Substance Abuse Use: None. Sexual Sexual orientation: Heteros exual. Exercise Exercise frequency: Daily. Self assessment: Poor condition. Exercise type: Walking. Employment/School Status: Retired. Alcohol Current, Type Beer. Freque ncy: 1-2 times per week. Started age 68 Years. Alcohol use interferes with work or karishma e: No. Drinks more than intended: No. Others hurt by drinking: No. Read y to change: Yes. Household alcohol concerns: Yes. Smoking Status Former smoker; Exposure to Tobacco Smoke None; Cigarette Smoking Last 365 Days Yes; Reg Smoking Cessation Veneer Jointer ing Yes entered on: 10/07/18 Assessment and Plan Extracted from: Title: Wound details Author: Zhao Roth MD Date: 07/26/18 Wound type: surgical incision and draina ge of prior abdominal wall abscess, extrafascial. Midline laparotomy, no fascial involvement, no undermining or tunnelling/sinus. Size: 18cm in lenght, 10cm in depth, 4cm in width. Wound bed: fibrinous, white, mechanically debrided in the operating room on 07/25/2018. Dressing applied: KCI VAC GRANUFOAM, Medium dressing (i.e. black sponge). Pressure -125mmHg
--- OUTSIDE RECORDS SUMMARY | 2020-01-19 13:50 | XMS REPORT | Summary of Care ---
Author Author [facility] Organization [facility] Address Unknown Phone Unavailable Encounter LAUREN Renee(GERARDO) [id number] Date(s): 06/28/18 - 06/28/18 [facility] [address] [place] [address]- Encounter Diagnosis Disruption of internal operation (surgical) wound, not elsewhere classified, sub sequent encounter (Final) - 07/03/18 Essential (primary) hypertension (Final) - Cutaneous abscess of abdominal wall (Final) - Discharge Disposition: Home or Self Care Attending Physician: Iman Acharya MD Referring Physician: Iman Acharya MD Vital Signs No data available for [...] Last 365 Days Yes; Reg Smoking Cessation Wool Tamper ing Yes entered on: 10/07/18 Assessment and Plan No data available for this section
--- OUTSIDE RECORDS SUMMARY | 2020-01-19 13:50 | XMS REPORT | Summary of Care ---
Author Author [facility] Organization [facility] Address Unknown Phone Unavailable Encounter LAUREN Renee(GERARDO) [id number] Date(s): 02/12/19 - 03/13/19 [facility] [address] [place] [id number] Discharge Disposition: Home or Self Care Attending Physician: Shaun Lowery MD Referring Physician: Shaun Lowery MD Vital Signs No data available for [...] Last 365 Days Yes; Reg Smoking Cessation Patient Advocate ing Yes entered on: 10/07/18 Assessment and Plan No data available for this section
--- OUTSIDE RECORDS SUMMARY | 2020-01-19 13:50 | XMS REPORT | Summary of Care ---
Author Author [facility] Address Unknown Phone Unavailable Encounter LAUREN Renee(GERARDO) [id number] Date(s): 02/18/18 - 03/19/18 [facility] Encounter Diagnosis Unilateral primary osteoarthritis, left hip (Final) - 03/25/18 Pain in left hip (Final) - Muscle weakness (generalized) (Final) - Stiffness of left hip, not elsewhere classified (Final) - Difficulty in walking, not elsewhere classified (Final) - Discharge Disposition: Home or Self Care Attending Physician: Pritesh Bautista MD Vital Signs No data available for [...] concerns: Yes. Smoking Status Former smoker; Type: Chewin g tobacco; Previous treatment: None; Exposure to Tobacco Smoke None; Cigarette Smoking L ast 365 Days No; Reg Smoking Cessation Counseling No; Number of year s: 32; 1 entered on: 09/30/18 1PT USES CHEWING TOBACCO Assessment and Plan No data available for this section
--- OUTSIDE RECORDS SUMMARY | 2020-01-19 13:50 | XMS REPORT | Summary of Care ---
Author Author [facility] Organization [facility] Address Unknown Phone Unavailable Encounter LAUREN Renee(GERARDO) [id number] Date(s): 10/01/19 - 10/30/19 [facility] [address], [place] [address] Discharge Disposition: Home or Self Care Attending Physician: Shaun Lowery MD Referring Physician: Shaun Lowery MD Vital Signs No data available for this section Problem List Condition Effective Dates Status Health Status Informan t Atrial Resolved fibrillation(Confirm ed)1 CKD (chronic kidney Resolved disease) stage 3, GFR 30-59 ml/min(Confirmed) COPD (chronic Active obstructive pulmonary disease)(Confirmed)2 Depression(Confirmed Active ) Facial Active neuropathy(Confirmed ) GERD Active (gastroesophageal reflux disease)(Confirmed) HTN Active (hypertension)(Confi rmed) Hypothyroid(Confirme Active d) Incisional Resolved hernia(Confirmed) Obesity(Confirmed) Active YANDEL (obstructive Active sleep apnea)(Confirmed)3, 4, 5 Parkinson's Active disease(Confirmed) 1ONLY HAD 1 EPISODE 2016 2NO OXYGEN, JUST INHALERS 3DOES NOT USE CPAP 4pt hasnt been using his CPAP 5INSTRUCTED PT TO BRING CPAP TO DOS Allergies, Adverse Reactions, Alerts No Known Medication Allergies Medications No data available for this section Results No data available for this section Immunizations Given and Recorded Vaccine Date Status Refusal Reason influenza virus vaccine, inactivated 06/05/19 G iven pneumococcal 13-valent vaccine 06/05/19 Given Procedures Procedure Date Related Diagnosis Body Site Status Operation1 09/2018 Completed Operation2 07/2018 Completed Hernia repair 12/15/16 Completed Hernia repair 10/05/16 Completed Cataract surgery 11/14/13 Completed Knee joint operation 11/14/12 Completed Bariatric operative procedure 10/13/02 Complete d Colostomy 09/14/01 Completed Procedure3 07/1899 Completed Bariatric operative procedure4 Completed Colostomy Completed Procedure5 Completed 1WASHOUT 2WASHOUT 3colostomy take down 4lap band 5colon perforation required hospitalization Social History Social History [...] Abuse Use: None. Smoking Status Former smoker; Type: Chewin g tobacco; Previous treatment: None; Exposure to Tobacco Smoke None; Cigarette Smoking L ast 365 Days No; Reg Smoking Cessation Counseling No; Number of year s: 32; 1 entered on: 06/02/19 1PT USES CHEWING TOBACCO Assessment and Plan No data available for this section
--- OUTSIDE RECORDS SUMMARY | 2020-01-19 13:50 | XMS REPORT | Summary of Care ---
Author Author [facility] Organization [facility] Address Unknown Phone Unavailable Encounter LAUREN Renee(GERADRO) [phone] Date(s): 08/20/19 - 09/18/19 [facility] [address] [place], [place] [address] Discharge Disposition: Home or Self Care [...] Parkinson's Active disease(Confirmed) 1ONLY HAD 1 EPISODE 2017 2NO OXYGEN, JUST INHALERS 3DOES NOT USE CPAP 4pt hasnt been using his CPAP 5INSTRUCTED PT TO BRING CPAP TO DOS Allergies, Adverse Reactions, Alerts No Known Medication Allergies Medications No data available for this section Results Microbiology Reports TEST: Culture: Tissue Quant w/Gram Stain STATUS: Auth (Verified) BODY SITE: Abdomen SOURCE: Tissue COLLECTED DATE/TIME: 09/01/19 3:11 PM FINAL REPORT >100,000 Organisms/Gram Tissue Gram Pos Rods Suggestive of Diphtheroids STAIN REPORT Gram Stain Performed By: [facility] Immunizations Given and Recorded Vaccine Date Status [...]
--- OUTSIDE RECORDS SUMMARY | 2020-01-19 13:50 | XMS REPORT | Summary of Care ---
Author Author [facility] Organization [facility] Address Unknown Phone Unavailable Encounter LAUREN Renee(GERARDO) [phone] Date(s): 07/23/19 - 08/12/19 [facility] [address] [place] [id number] [phone] Discharge Disposition: Home or Self Care Attending [...]
--- OUTSIDE RECORDS SUMMARY | 2020-01-19 13:50 | XMS REPORT | Continuity of Care Document ---
Author Author SIMON Garcia Organization [employer] Address Unknown Phone Unavailable Care Team Providers Care Herb Grower Name Role Phone [employer] Unavailable Un available Problems Problem Status Onset Date Classification Date Reported Comments Source WOUNDS Active 09/10/2019 [facility] WOUND Active 08/11/2019 [facility] [place] WONDS Active 06/25/2019 [facility] FOLLOW UP Active 06/05/2019 [facility] UNSPECIFIED OPEN WOUND OF ABDOMINAL WALL Active 05/15/2019 [facility] OPEN WOUND FOR 6 MONTHS Active 03/12/2019 [facility] ACUTE SEPSIS, PNA (PNEUMONIA), SOB (SHOR Active 10/06/2018 [place] OPEN ABD WOUND Active 09/25/2018 [facility] Infection following a procedure, organ a nd space surgical site, initial encounter 09/19/2018 03/26/2019 [place] Unspecified open wound of abdominal wall , unspecified quadrant without penetration into peritoneal cavity, subsequent encounter 09/10/2018 03/26/2019 [facility] WOUND ABD Active 09/10/2018 [facility] PERITONEAL ABSCESS Active 09/03/2018 [facility] PERITONITIS Active 09/03/2018 [facility] Infection following a procedure, superfi cial incisional surgical site, initial encounter 08/01/2018 02/12/2019 [facility] Disruption of external operation (surgic al) wound, not elsewhere classified, initial encounter 07/26/2018 02/03/2019 [place] CUTANEOUS ABSCESS OF ABDOMINAL WALL Active 07/16/2018 [facility] DX: [id number] (PRIMARY) HYPERTENSION Active 06/24/2018 [facility] Infection following a procedure, initial encounter 04/20/2018 10/28/2018 [facility] FEVER/ ABDOMINAL Active 04/04/2018 [facility] Unilateral primary osteoarthritis, left hip 03/26/2018 10/06/2018 [facility] [place] Traumatic subdural hemorrhage with loss of consciousness of unspecified duration, initial encounter 09/04/2017 12/06/2017 [facility] [place] HIP Active 0 08/13/2017 [facility] [place] SAH/SCALP LAC Active 08/13/2017 [facility] LFLT TRANSFER #[id number] Active 08/13/2017 [facility] BEDDED OUTPATIENT/EVALUATION FOR DRAIN P Active 02/16/2017 [facility] OUTPATIENT/EVALUATION FRO DRAIN PLACEMEN Active 02/07/2017 [facility] VENTRAL HERNIA Active 09/19/2016 [facility] SBO/HERNIA Active 09/07/2016 [facility] Peritoneal abscess 03/26/2019 [facility] Body mass index (BMI) 40.0-44.9, adult 03/26/2019 [facility] Hypothyroidism, unspecified 03/26/2019 [facility] Gastro-esophageal reflux disease without esophagitis 03/26/2019 [facility] Parkinson's disease 03/26/2019 [facility] Obstructive sleep apnea (adult) (pediatric) 03/26/2019 [facility] Chronic obstructive pulmonary disease, unspecified 03/26/2019 [facility] Unspecified atrial fibrillation 03/26/2019 [facility] Chronic kidney disease, stage 3 (moderate) 03/26/2019 [facility] Methicillin resistant Staphylococcus aur eus infection as the cause of diseases classified elsewhere 03/26/2019 [facility] Proteus (mirabilis) (morganii) as the ca use of diseases classified elsewhere 03/26/2019 [facility] Alcohol abuse, uncomplicated 03/26/2019 [facility] Obesity, unspecified 03/26/2019 [facility] Hypertensive chronic kidney disease with stage 1 through stage 4 chronic kidney disease, or unspecified chronic kidney disease 03/26/2019 [facility] Anemia in chronic kidney disease 03/26/2019 [facility] FPC (current) use of anticoagulants 03/26/2019 [facility] Tobacco use 03/26/2019 [facility] Peritonitis, unspecified 03/26/2019 [facility] Disruption of internal operation (surgic al) wound, not elsewhere classified, subsequent encounter 03/26/2019 [facility] Essential (primary) hypertension 03/26/2019 [facility] Enterococcus as the cause of diseases cl assified elsewhere 03/26/2019 [facility] Idiopathic progressive neuropathy 03/26/2019 [facility] Pain in left hip 10/06/2018 [facility] [place] Muscle weakness (generalized) 10/06/2018 [facility] [place] Stiffness of left hip, not elsewhere classified 10/06/2018 [facility] [place] Difficulty in walking, not elsewhere classified 10/06/2018 [facility] [place] Atrial fibrillation (disorder) Resolved Problem ONLY HAD 1 EPISODE 2017 [facility] ical Group,[facility], [facility] [place],[facility] [place] Chronic kidney disease stage 3 (disorder) Resolved Problem 11/01/2019 Medical Group,[facility], [facility] [place],[facility] [place] Chronic obstructive lung disease (disorder) Active Problem 11/01/2019 NO OXYGEN, JUST INHALERS Medical Group,[facility] ,[facility] [place] Facial palsy (disorder) Active Problem 11/01/2019 [facility], [facility] [place],[facility] [place] Gastroesophageal reflux disease (disorder) Active Problem 11/01/2019 [facility], [facility] [place],[facility] [place] Hypertensive disorder, systemic arterial (disorder) Active Problem 11/01/2019 [facility], [facility] [place],[facility] [place] Hypothyroidism (disorder) Acti ve Problem Medical [facility], [facility] [place],[facility] [place] Incisional hernia (disorder) R esolved Problem [facility], [facility] [place],[facility] [place] Obesity (disorder) Active Problem 11/01/2019 [facility], [facility] [place],[facility] [place] Obstructive sleep apnea syndrome (disorder) Active Problem 11/01/2019 DOES NOT USE CPAP pt hasnt been using his CPAP INSTRUCTED PT TO BRING CPAP TO DOS Medical [facility] [place] Parkinson's disease (disorder) Active Problem Medical Group,[facility], [place],[facility] [place] Cutaneous abscess of abdominal wall 02/12/2019 [facility] Chronic kidney disease, unspecified 02/12/2019 [facility] Hyperkalemia 02/12/2019 [facility] Personal history of nicotine dependence 02/12/2019 [facility] Depressive disorder (disorder) Active Problem [facility] Sepsis, unspecified organism 10/28/2018 [facility] Hypertensive 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 and stage 1 through stage 4 chronic kidney disease, or unspecified chronic kidney disease 10/28/2018 [facility] Postprocedural hematoma of skin and subc utaneous tissue following other procedure 10/28/2018 [facility] Heart failure, unspecified 10/28/2018 [facility] Bariatric surgery status 10/28/2018 [facility] Nicotine dependence, chewing tobacco, uncomplicated 10/28/2018 [facility] Final: Ventral hernia without obstruction or gangrene 10/12/2016 [facility] NONTRAUMATIC ACUTE SUBDURAL HEMORRHAGE Active [facility] PERITONITIS, UNSPECIFIED Active [facility] SEPSIS, UNSPECIFIED ORGANISM A ctive [facility] PNEUMONIA, UNSPECIFIED ORGANISM Active [facility] SHORTNESS OF BREATH Active [facility] OTHER SPECIFIED CONGENITAL DEFORMITIES Active [facility] VENTRAL HERNIA WITHOUT OBSTRUCTION OR GA Active [facility] Medications Medication Details Route Status Patient Instructions Ordering Provider Order Date Source tramadol hydrochloride 50 MG Oral Tablet 100.4 F, X 10 day, # 12 tab, 0 Refill(s) Active 06/05/2019 [facility] nter Acetaminophen 500 MG Oral Tablet 1,000 mg = 2 tab, PO, Q6H, PRN Pain Score 4-6, X 14 day, # 24 tab, 0 Refill(s) Active 06/05/2019 [facility] pantoprazole 40 mg oral enteric coated tablet 40 mg = 1 tab, PO, Daily, # 60 tab, 0 Refill(s) Active 06/05/2019 [facility] nter Tums Notes: (Same As: Tums) Ca lcium Carbonate 500 mg = 200 mg elemental calcium Dose = mg calcium carbonate ( mg elemental calcium) No Longer Active 06/05/2019 [facility] nter Acetaminophen 325 MG / Hydrocodone Zechariah trate 10 MG Oral Tablet TAKE 1 TABLET BY MOUTH TWICE A DAY NE EDED FOR PAIN FOR BREAKTHROUGH PAIN. Active 06/04/2019 [facility] gabapentin 600 MG Oral Tablet TAKE 1 TABLET (600 MG TOTAL) BY MOUTH 4 (FOUR) TIMES A DAY. Active 06/04/2019 [facility] nter valsartan 80 mg oral tablet TA KE 1 TABLET BY MOUTH TWICE A DAY Active 06/04/2019 [facility] Dilaudid 0.2 mg, 0.1 mL, Route : IVP, Drug form: INJ, ONCE, Dosing Weight 118, kg, Priority: STAT, Start date: 06/04/19 15:07:00 CDT, Stop date: 06/04/19 15:07:00 CDT, 0 Inactive 06/04/2019 [facility] nter Flomax Notes: (Same As: Flomax ) "Do Not Crush" No Longer Active 06/04/2019 [facility] LR IV 1,000 mL 1,000 mL, Rate: 100 ml/hr, Infuse over: 10 hr, Route: IV, Dosing Weight 118 kg, Total Volume: 1,000, Start date: 06/04/19 7:46:00 CDT, Duration: 30 day, Stop date: 07/04/19 7:45:00 [employer], 2.38, m2, 0 No Longer Active 06/04/2019 [facility] Xarelto Notes: (Same as: Xarel to) Administer with food No Longer Active 06/03/2019 [facility] Calcium Chloride 0.0014 MEQ/ML / Potassi um Chloride 0.004 MEQ/ML / Sodium Chloride 0.103 MEQ/ML / Sodium Lactate 0.028 MEQ/ML Injectable Solution 1,000 mL, 1,000 ml/hr, Infuse Over: 1 hr , Route: IV, 1,000, Drug form: INJ, ONCE, Priority: STAT, Dosing Weight 118 kg, Start date: 06/03/19 16:13:00 CDT, Stop date: 06/03/19 16:13:00 CDT, 0 Inactive 06/03/2019 [facility] nter LR IV 1,000 mL 1,000 mL, Rate: 125 ml/hr, Infuse over: 8 hr, Route: IV, Dosing Weight 118 kg, Total Volume: 1,000, Start date: 06/03/19 16:12:00 CDT, Duration: 30 day, Stop date: 07/03/19 16:11:00 [employer], 2.38, m2, 0 No Longer Active 06/03/2019 [facility] Oxycodone Hydrochloride 1 MG/ML Oral Solution Notes: (Same as: 'Roxicodone) No Longer Active 06/03/2019 [facility] n[facility] Codeine 15 mg, Route: PO, Drug form: TAB, Q4H, Dosing Weight 118, kg, PRN Pain Score 4-6, Start date: 06/03/19 10:59:00 CDT, Duration: 30 day, Stop date: 07/03/19 10:58:00 [employer], 0 Inactive 06/03/2019 [facility] nter Thyroxine Notes: Take 1 hour b efore or 2 hours after meal; Enteral feeds may interefere with the absorption of this medication. (Same as:Levothroid) No Longer Activ e 06/03/2019 [facility] Omeprazole 20 mg, Route: PO, D rug form: DRC, Daily, Dosing Weight 118, kg, Start date: 06/03/19 9:00:00 CDT, Duration: 30 day, Stop date: 07/02/19 9:00:00 [employer] No Longer Active 06/03/2019 [facility] Sertraline Notes: (Same as: Zo loft) No Longer Active 06/03/2019 [facility] Lactated Ringers IV 500 mL 500 mL, Rate: 125 ml/hr, Infuse over: 4 hr, Route: IV, Dosing Weight 118 kg, Total Volume: 500, Start date: 06/03/19 8:06:00 CDT, Duration: 30 day, Stop date: 07/03/19 8:05:00 [employer], 2.38, m2, 0 Inactive 06/03/2019 [facility] Protonix Notes: Tablet should not be chewed or crushed. (Same as: Protonix) No Longer Active 06/03/2019 [facility] n[facility] sugammadex Notes: (Same as: Br idion) No Longer Active 06/03/2019 [facility] Acetaminophen Notes: Max aceta minophen 4000 mg/day (4 gm/day). (Same as: Tylenol Extra Strength) No Longer Active 06/02/2019 [facility] nt Symbicort 160/4.5 inhalation aerosol with adapter Notes: (Same as: Symbicort) WASTE: Aerosol - Return to Pharmacy No Longer Active 06/02/2019 [facility] Carbidopa 50 MG / Levodopa 200 MG Extend ed Release Tablet Notes: "Do Not Crush" Take with milk or food. (Same As: Sinemet CR) No Longer Active 06/02/2019 [facility] valsartan Notes: Same as Diovan No Longer Active 06/02/2019 [facility] ondansetron (ANES) Route: IV, Drug form: INJ, ONCE, Stop date: 06/02/19 16:27:00 CDT Inactive 06/02/2019 [facility] sugammadex (ANES) Route: IV, D rug form: SOLN, ONCE, Stop date: 06/02/19 16:27:00 CDT Inactive 06/02/2019 [facility] vasopressin (ANES) Route: IV, Drug form: INJ, ONCE, Stop date: 06/02/19 15:45:00 CDT Inactive 06/02/2019 [facility] nter ePHEDrine (ANES) Route: IV, Dr vazquez form: INJ, ONCE, Stop date: 06/02/19 15:45:00 CDT Inactive 06/02/2019 [facility] nter rocuronium (ANES) Route: IV, D rug form: INJ, ONCE, Stop date: 06/02/19 15:40:00 CDT Inactive 06/02/2019 [facility] nter ePHEDrine (ANES) Route: IVDr vazquez form: INJ, ONCE, Stop date: 06/02/19 15:20:00 CDT Inactive 06/02/2019 [facility] nter vasopressin (ANES) Route: IV, Drug form: INJ, ONCE, Stop date: 06/02/19 15:10:00 CDT Inactive 06/02/2019 [facility] nter phenylephrine (ANES) Route: IV , Drug form: INJ, ONCE, Stop date: 06/02/19 15:05:00 CDT Inactive 06/02/2019 [facility] nter ceFAZolin (ANES) Route: IV, Dr ug form: INJ, ONCE, Stop date: 06/02/19 15:05:00 CDT Inactive 06/02/2019 [facility] nter Hydromorphone Notes: Same as D ilaudid No Longer Active 06/02/2019 [facility] midazolam (ANES) Route: IV, Dr ug form: SOLN, ONCE, Stop date: 06/02/19 15:00:00 CDT Inactive 06/02/2019 [facility] nter lidocaine (ANES) Route: IV, Dr ug form: INJ, ONCE, Stop date: 06/02/19 15:00:00 CDT Inactive 06/02/2019 [facility] nter propofol (ANES) Route: IV, Bertrand g form: INJ, ONCE, Stop date: 06/02/19 15:00:00 CDT Inactive 06/02/2019 [facility] nter rocuronium (ANES) Route: IV, D rug form: INJ, ONCE, Stop date: 06/02/19 15:00:00 CDT Inactive 06/02/2019 [facility] nter fentaNYL (ANES) Route: IV, Bertrand g form: INJ, ONCE, Stop date: 06/02/19 15:00:00 CDT Inactive 06/02/2019 [facility] nter Hydralazine Notes: (Same as: A presoline) Push over 5 minutes Inactive 06/02/2019 [facility] Labetalol 10 mg, 2 mL, Route: IVP, Drug form: INJ, Q5Min, Dosing Weight 118, kg, PRN Elevated BP, Start date: 06/02/19 14:41:00 CDT, Duration: 5 doses or times, Stop date: 06/03/19 0:00:00 CDT, 0 Inactive 06/02/2019 [facility] Oxycodone Hydrochloride 5 MG Oral Tablet Notes: (Same as: Roxicodone) Inactive 06/02/2019 [facility] Hydromorphone Notes: Same as D ilaudid Inactive 06/02/2019 [facility] Flumazenil Notes: (Same as: Ro mazicon) Inactive 06/02/2019 [facility] Naloxone Notes: Same as Narcan Inactive 06/02/2019 [facility] Ondansetron Notes: (Same as: Mariah lacey) MEDICATION WASTE Product Size: 4 mg Product Wasted: ___ mg Inactive 06/02/2019 [facility] Lactated Ringers Injection IV (ANES) 1000 mL Route: IV, Total Volume: 1,000, Start date: 06/02/19 13:53:00 CDT, Stop date: 06/02/19 14:53:00 CDT Inactive 06/02/2019 [facility] Mefoxin + sterile water 20 mL Notes: (Same As: Mefoxin) MEDICATION WASTE Product Size: 2000 mg Product Wasted: ___ mg No Longer Active 06/02/2019 [facility] heparin Notes: porcine heparin No Longer Active 06/02/2019 [facility] scopolamine Notes: Change patc h every 72 hours (Same as: Transderm-Scop) No Longer Active 06/02/2019 [facility] nter acetaminophen Notes: Max aceta minophen 4000 mg/day (4 gm/day). (Same as: Tylenol Extra Strength) No Longer Active 06/02/2019 [facility] nter multivitamin Daily, 0 Refill(s) Active 05/27/2019 [facility] Probiotic Formula PO, Daily, 0 Refill(s) Active 05/27/2019 [facility] omeprazole 20 mg oral delayed release capsule 20 mg = 1 cap, PO, Daily, # 30 cap, 0 Refill(s) No Longer Active 05/27/2019 [facility] n[facility] valsartan 40 mg oral tablet 40 mg = 1 tab, PO, BID, # 180 tab, 0 Refill(s) No Longer Active 05/27/2019 [facility] Levofloxacin 750 MG Oral Tablet [Levaquin] 750 mg = 1 tab, PO, Q24H, X 2 day, # 2 tab, 0 Refill(s) No Longer Active 10/10/2018 [facility] vanco trough reminder prior to 9am dose vanco trough reminder prior to 9am dose, reminder, Drug form: MISC, Route: MISC, ONCE, 10/10/18 8:30:00 [employer], Stop date: 10/10/18 8:30:00 [employer] No Longer Active 10/10/2018 [facility] vancomycin + Sodium Chloride 0.9% IV 250 mL 2001 mg: infuse over 2.5 hours For adult patients only: Round to nearest 250 mg per Medical Staff approval MEDICATION WASTE Product Size: 1000 mg Product Wasted: ___ mg No Longer Active 10/09/2018 [facility] RN-DO NOT give 16:30 vanc on 10/08 til l trough drawn RN-DO NOT give 16:30 vanc on 10/08 ti ll trough drawn, Attn:RN, Drug form: MISC, Route: MISC, ONCE, 10/08/18 15:00:00 [employer], Stop date: 10/08/18 15:00:00 [employer] Inactive 10/08/2018 [facility] Thyroxine Notes: Take 1 hour b efore or 2 hours after meal; Enteral feeds may interefere with the absorption of this medication. (Same as:Levothroid) No Longer Active 10/08/2018 [facility] Xarelto Notes: (Same as: Xarel to) Administer with food No Longer Active 10/07/2018 [facility] vancomycin + Sodium Chloride 0.9% IV 250 mL 2001 mg: infuse over 2.5 hours For adult patients only: Round to nearest 250 mg per Medical Staff approval MEDICATION WASTE Product Size: 1000 mg Product Wasted: ___ mg No Longer Active 10/07/2018 [facility] gabapentin Notes: (Same as: Ne urontin) No Longer Active 10/07/2018 [facility] albuterol Notes: SEE RT DOCUME NTATION (Same as: Proventil) No Longer Active 10/07/2018 [facility] Sertraline Notes: (Same as: Zo loft) No Longer Active 10/07/2018 [facility] pantoprazole Notes: Tablet chyna uld not be chewed or crushed. (Same as: Protonix) N o Longer Active 10/07/2018 [facility] Carbidopa 25 MG / Levodopa 100 MG Oral Tablet Notes: Take with milk or food. (Same As: Sinemet) No Longer Active 10/07/2018 [facility] Symbicort 160/4.5 inhalation aerosol with adapter 2 puff, Route: INHALATION, Drug Form: AERO/A, Dosing Weight 104.545, kg, BID, Start date: 10/07/18 9:00:00 [employer], Duration: 30 day, Stop date: 11/05/18 17:00:00 CDT Inactive 10/07/2018 [facility] Vancomycin 1 gm, Route: IV, Q1 2H, Dosing Weight 104.545, kg, Start date: 10/07/18 9:00:00 [employer], Duration: 30 day, Stop date: 11/05/18 21:00:00 CDT, ABX Indication: Pneumonia Inactive 10/07/2018 [facility] valsartan Notes: Same as Diovan No Longer Active 10/07/2018 [facility] torsemide Notes: (Same As: Dem adex) No Longer Active 10/07/2018 [facility] Pulmicort Respules Notes: (Vito e As: Pulmicort) No Longer Active 10/07/2018 [facility] albuterol Notes: SEE RT DOCUME NTATION (Same as: Proventil) No Longer Active 10/07/2018 [facility] 200 ACTUAT Albuterol 0.09 MG/ACTUAT Mete red Dose Inhaler [ProAir HFA] 180 microgram, 2 puff, Route: INHALER, D rug Form: AERO/A, Dosing Weight 104.545, kg, Q6H, PRN Wheezing, Start date: 10/07/18 7:22:00 [employer], Duration: 30 day, Stop date: 11/06/18 7:21:00 CDT Inactive 10/07/2018 [facility] tramadol hydrochloride 50 MG Oral Tablet Notes: Not to exceed 400mg/day. (Same As: Ultram) No Longer Active 10/07/2018 [facility] 200 ACTUAT Albuterol 0.09 MG/ACTUAT Mete red Dose Inhaler [ProAir HFA] 2 puff, INHALER, Q6H, PRN for wheezing, # 8.5 gm, 0 Refill(s) No Longer Active 10/07/2018 [facility] tramadol hydrochloride 50 MG Oral Tablet 50 mg = 1 tab, PO, Q6H, PRN Pain Score 4-6, 0 Refill(s) Active 10/07/2018 [facility] torsemide 20 mg oral tablet 20 mg = 1 tab, PO, Daily, 0 Refill(s) No Longer Active 10/07/2018 [facility] gabapentin 600 mg, PO, QID, 0 Refill(s) Active 10/07/2018 [facility] Sertraline 100 mg, PO, Daily, 0 Refill(s) Active 10/07/2018 [facility] Thyroxine 125 microgram, Daily , 0 Refill(s) Active 10/07/2018 [facility] rivaroxaban 20 MG Oral Tablet [Xarelto] 20 mg = 1 tab, PO, QPM, # 30 tab, 3 Refill(s) No Longer Active 10/07/2018 [facility] pantoprazole 40 mg oral enteric coated tablet 40 mg = 1 tab, PO, Daily, 0 Refill(s) Active 10/07/2018 [facility] Carbidopa 25 MG / Levodopa 100 MG Oral Tablet 2 tab, PO, BID, 0 Refill(s) Active 10/07/2018 [facility] Symbicort 160/4.5 inhalation aerosol with adapter 2 puff, INHALATION, BID, 0 Refill(s) No Longer Active 10/07/2018 [facility] valsartan 80 mg oral tablet 80 mg = 1 tab, PO, BID, 0 Refill(s) No Longer Active 10/07/2018 [facility] Zosyn Notes: (Same as: Zosyn) Dosing based on Piperacillin component MEDICATION WASTE Product Size: 3375 mg Product Wasted: ___ mg No Longer Active 10/07/2018 [facility] vancomycin + Sodium Chloride 0.9% IV 250 mL 2001 mg: infuse over 2.5 hours For adult patients only: Round to nearest 250 mg per Medical Staff approval MEDICATION WASTE Product Size: 1000 mg Product Wasted: ___ mg Inactive 10/07/2018 [facility] Levofloxacin Notes: (Same as:Jim mena) No Longer Active 10/07/2018 [facility] Ondansetron 4 mg, Route: IVP, Q8H, Dosing Weight 104.545, kg, PRN Nausea & Vomiting, Start date: 10/07/18 1:31:00 [employer], Duration: 30 day, Stop date: 11/06/18 1:30:00 CDT Inactive 10/07/2018 [facility] Acetaminophen Notes: Do not ex ceed 4 gm/day. (Same as: Tylenol) No Longer Active 10/07/2018 [facility] Vancomycin 1,000 mg, Route: IV PB, ONCE, Dosing Weight 104.545, kg, Priority: STAT, Start date: 10/07/18 0:25:00 [employer], Stop date: 10/07/18 0:25:00 [employer], ABX Indication: Pneumonia Inactive 10/07/2018 [facility] Saline Flush 0.9% Notes: (Same as: BD Posiflush) No Longer Active 10/07/2018 [facility] *RN-DO NOT give 21:00 vanc on 09/06 till trough drawn *RN-DO NOT give 21:00 vanc on 09/06 till trough drawn, Attn:RN, Drug form: MISC, Route: MISC, ONCE, 09/06/18 20:00:00 [employer], Stop date: 09/06/18 20:00:00 [employer] Inactive 09/07/2018 [facility] vancomycin 1.25 g/150 mL-NaCl 0.9% intravenous solutio n 1.25 gm, IV, Q24H, X 6 week, # 42 bag, 0 Refill(s), given to patient No Longer Active 09/06/2018 [facility] cefepime 1 g injection 1 gm, I V, Q8H, X 6 week, # 126 bag, 0 Refill(s), given to patient No Longer Active 09/06/2018 [facility] Xarelto Notes: (Same as: Xarel to) Administer with food No Longer Active 09/05/2018 [facility] Symbicort 160/4.5 inhalation aerosol with adapter 2 puff, Route: INHALATION, Drug Form: AERO/A, Dosing Weight 105.966, kg, BID, Start date: 09/05/18 9:00:00 [employer], Duration: 30 day, Stop date: 10/04/18 17:00:00 [employer] No Longer Active 09/05/2018 [facility] Carbidopa 50 MG / Levodopa 200 MG Extend ed Release Tablet Notes: "Do Not Crush" Take with milk or food. (Same As: Sinemet CR) No Longer Active 09/05/2018 [facility] Thyroxine Notes: Take 1 hour b efore or 2 hours after meal; Enteral feeds may interefere with the absorption of this medication. (Same as:Levothroid) No Longer Active 09/05/2018 [facility] pantoprazole Notes: Tablet chyna uld not be chewed or crushed. (Same as: Protonix) N o Longer Active 09/05/2018 [facility] Veltassa 8.4 gm, Route: PO, Dr ug form: PDR/REC, Daily, Dosing Weight 105.966, kg, Start date: 09/05/18 9:00:00 [employer], Duration: 30 day, Stop date: 10/04/18 9:00:00 [employer] No Longer Active 09/05/2018 [facility] torsemide Notes: (Same As: Dem adex) No Longer Active 09/05/2018 [facility] valsartan Notes: Same as Diovan No Longer Active 09/05/2018 [facility] cefepime Notes: (Same As: Clifford severino) MEDICATION WASTE Product Size: 1000 mg Product Wasted: ___ mg No Longer Active 09/05/2018 [facility] gabapentin 600 MG Oral Tablet Notes: (Same as: Neurontin) No Longer Active 09/05/2018 [facility] ATTN RN please bring pt home med to [facility] to be labeled ATTN RN please bring pt home med to [facility] to be labeled, ATTN RN, Drug form: MISC, Route: MISC, QSHIFT, 09/05/18 0:00:00 [employer], Duration: 30 day, Stop date: 10/04/18 16:00:00 [employer] No Longer Active 09/05/2018 [facility] Sertraline Notes: (Same as: Zo loft) No Longer Active 09/05/2018 [facility] Pulmicort Respules Notes: (Vito e As: Pulmicort) No Longer Active 09/05/2018 [facility] albuterol Notes: SEE RT DOCUME NTATION (Same as: Proventil) No Longer Active 09/05/2018 [facility] Vancomycin 1.5 gm, Route: IVPB , Drug form: INJ, [id number], Dosing Weight 105.966, kg, Start date: 09/04/18 20:00:00 [employer], Duration: 7 day, Stop date: 09/11/18 8:00:00 [employer], ABX Indication: Skin/Soft Tissue Infection Inactive 09/05/2018 [facility] vancomycin + Sodium Chloride 0.9% IV 250 mL 2001 mg: infuse over 2.5 hours For adult patients only: Round to nearest 250 mg per Medical Staff approval MEDICATION WASTE Product Size: 1000 mg Product Wasted: ___ mg No Longer Active 09/05/2018 [facility] NS 1,000 mL 1,000 mL, Rate: 75 ml/hr, Infuse over: 13.3 hr, Route: IV, Dosing Weight 105.966 kg, Total Volume: 1,000, Start date: 09/04/18 19:15:00 [employer], Duration: 30 day, Stop date: 10/04/18 19:14:00 [employer], 2.22, m2 No Longer Active 09/05/2018 [facility] albuterol Notes: SEE RT DOCUME NTATION (Same as: Proventil) No Longer Active 09/05/2018 [facility] Vancomycin 1,000 mg, Route: IV PB, Drug form: INJ, [id number], Dosing Weight 105.966, kg, Start date: 09/04/18 18:00:00 [employer], Duration: 10 day, Stop date: 09/14/18 6:00:00 [employer], ABX Indication: Intra-abdominal Infect ion Inactive 09/05/2018 [facility] cefepime Notes: (Same As: Clifford severino) MEDICATION WASTE Product Size: 1000 mg Product Wasted: ___ mg Inactive 09/05/2018 [facility] 200 ACTUAT Albuterol 0.09 MG/ACTUAT Mete red Dose Inhaler [ProAir HFA] 180 microgram, 2 puff, Route: INHALER, D rug Form: AERO/A, Dosing Weight 105.966, kg, Q6H, PRN, Start date: 09/04/18 17:34:00 [employer], Duration: 30 day, Stop date: 10/04/18 17:33:00 [employer], asthma Inactive 09/04/2018 [facility] tramadol hydrochloride 50 MG Oral Tablet Notes: Not to exceed 400mg/day. (Same As: Ultram) No Longer Active 09/04/2018 [facility] Omnipaque 300 injectable solution Notes: (Same as:Omnipaque 300). WASTE: F/P - Black; E - Municipal Trash Bin No Longer Active 09/04/2018 [facility] Triamcinolone Acetonide 0.001 MG/MG Oral Paste 1 appl, PO, TID, # 5 gm, 0 Refill(s) N o Longer Active 09/04/2018 [facility] Acetaminophen 325 MG / Hydrocodone Zechariah trate 10 MG Oral Tablet [Peggs 10/325] 1 tab, PO, Q6H, PRN for pain, # 24 tab, 0 Refill(s) No Longer Active 09/04/2018 [facility] Dextrose 50% Syringe 12.5 gm, 25 mL, Route: IVP, Drug Form: INJ, Dosing Weight 102.273, kg, PRN, PRN Blood Glucose Results, Start date: 09/03/18 14:32:00 [employer], Duration: 30 day, Stop date: 10/03/18 14:31:00 [employer] No Longer Active 09/03/2018 [facility] Glucagon 1 mg, Route: IM, Drug form: PDR/INJ, PRN, Dosing Weight 102.273, kg, PRN Blood Glucose Results, Start date: 09/03/18 14:32:00 [employer], Duration: 30 day, Stop date: 10/03/18 14:31:00 [employer] No Longer Active 09/03/2018 [facility] POLYETHYLENE GLYCOL 3350 Notes : Dissolve in 8 oz of water or juice. (Same as: Miralax) No Longer Active 09/03/2018 [facility] Bisacodyl Notes: (Same As: Dul colax, Bisco-Lax) No Longer Active 09/03/2018 [facility] Ondansetron Notes: (Same as: Mariah lacey) MEDICATION WASTE Product Size: 4 mg Product Wasted: ___ mg No Longer Active 09/03/2018 [facility] Diphenhydramine 25 mg, 1 tab, Route: PO, Drug form: TAB, Q6H, Dosing Weight 102.273, kg, PRN as needed for allergy symptoms, Start date: 09/03/18 14:32:00 [employer], Duration: 30 day, Stop date: 10/03/18 14:31:00 [employer] No Longer Active 09/03/2018 [facility] Melatonin Notes: (Same as: Jeanie atonin) No Longer Active 09/03/2018 [facility] Trazodone Notes: (Same As: Laron yrel) No Longer Active 09/03/2018 [facility] Acetaminophen Notes: Do not ex ceed 4 gm/day. (Same as: Tylenol) No Longer Active 09/03/2018 [facility] Seroquel Notes: (Same as: SERO quel) No Longer Active 09/03/2018 [facility] Hydralazine Notes: (Same as: A presoline) Push over 5 minutes No Longer Active 09/03/2018 [facility] Nicotine Notes: (Same as: Jannette beverly) "Remove old patch before application of new patch" WASTE: F/P - P Waste Black; E - P Waste Black No Longer Active 09/03/2018 [facility] magnesium citrate 58.2 MG/ML Oral Solution Notes: (Same as: Citrate of Magnesia) Concentration: 1.745 gm / 30 mL No Longer Active 09/03/2018 [facility] Acetaminophen 325 MG / Hydrocodone Zechariah trate 5 MG Oral Tablet [Peggs 5/325] Notes: (Same as: Peggs 325/5) Do not ex ceed 4gm/day of acetaminophen. No Longer Activ e 09/03/2018 [facility] Morphine 2 mg, 1 mL, Route: IV P, Drug form: SOLN, Q4H, Dosing Weight 102.273, kg, PRN Pain Score 7-10, Start date: 09/03/18 14:32:00 [employer], Duration: 30 day, Stop date: 10/03/18 14:31:00 [employer] No Longer Active 09/03/2018 [facility] Dextrose 50% Syringe 25 mL, Ro woodrow: IVP, Dosing Weight 102.273, kg, PRN, PRN Blood Glucose Results, Start date: 09/03/18 14:28:00 [employer], Duration: 30 day, Stop date: 10/03/18 14:27:00 [employer] No Longer Active 09/03/2018 [facility] Glucagon 1 mg, Route: IM, PRN, Dosing Weight 102.273, kg, PRN Blood Glucose Results, Start date: 09/03/18 14:28:00 [employer], Duration: 30 day, Stop date: 10/03/18 14:27:00 [employer] No Longer Active 09/03/2018 [facility] POLYETHYLENE GLYCOL 3350 17 gm , Route: PO, Daily, Dosing Weight 102.273, kg, PRN Constipation, Start date: 09/03/18 14:28:00 [employer], Duration: 30 day, Stop date: 10/03/18 14:27:00 [employer] No Longer Active 09/03/2018 [facility] Bisacodyl 10 mg, Route: [place], Da kamron, Dosing Weight 102.273, kg, PRN Constipation, Start date: 09/03/18 14:28:00 [employer], Duration: 30 day, Stop date: 10/03/18 14:27:00 [employer] No Longer Active 09/03/2018 [facility] Ondansetron 4 mg, Route: IVP, Q6H, Dosing Weight 102.273, kg, PRN Nausea & Vomiting, Start date: 09/03/18 14:28:00 [employer], Duration: 30 day, Stop date: 10/03/18 14:27:00 [employer] No Longer Active 09/03/2018 [facility] Diphenhydramine 25 mg, Route: PO, Q6H, Dosing Weight 102.273, kg, PRN as needed for allergy symptoms, Start date: 09/03/18 14:28:00 [employer], Duration: 30 day, Stop date: 10/03/18 14:27:00 [employer] No Longer Active 09/03/2018 [facility] Melatonin 3 mg, Route: PO, Bed time, Dosing Weight 102.273, kg, PRN Insomnia, Start date: 09/03/18 14:28:00 [employer], Duration: 30 day, Stop date: 10/03/18 14:27:00 [employer] No Longer Active 09/03/2018 [facility] Trazodone 50 mg, Route: PO, Be dtime, Dosing Weight 102.273, kg, PRN Insomnia, Start date: 09/03/18 14:28:00 [employer], Duration: 30 day, Stop date: 10/03/18 14:27:00 [employer] No Longer Active 09/03/2018 [facility] Acetaminophen 100.4 F, Start date: 09/03/18 14:28:00 [employer], Duration: 30 day, Stop date: 10/03/18 14:27:00 [employer] No Longer Active 09/03/2018 [facility] Seroquel 25 mg, Route: PO, BID , Dosing Weight 102.273, kg, PRN Agitation, Start date: 09/03/18 14:28:00 [employer], Duration: 30 day, Stop date: 10/03/18 14:27:00 [employer] No Longer Active 09/03/2018 [facility] Hydralazine 10 mg, Route: IVP, Q4H, Dosing Weight 102.273, kg, PRN Hypertension, Priority: Routine, Start date: 09/03/18 14:28:00 [employer], Duration: 30 day, Stop date: 10/03/18 14:27:00 [employer] No Longer Active 09/03/2018 [facility] Nicotine 21 mg, Route: Dr GOVIND ug form: ERFILM, Daily, Dosing Weight 102.273, kg, PRN as needed for smoking cessation, Start date: 09/03/18 14:28:00 [employer], Duration: 30 day, Stop date: 10/03/18 14:27:00 [employer] No Longer Active 09/03/2018 [facility] magnesium citrate 58.2 MG/ML Oral Solution 300 ml, Route: PO, Dosing Weight 102.273, kg, ONCE, PRN Constipation, Start date: 09/03/18 14:28:00 [employer] No Longe r Active 09/03/2018 [facility] Acetaminophen 325 MG / Hydrocodone Zechariah trate 5 MG Oral Tablet [Peggs 5/325] 1 tab, Route: PO, Drug Form: TAB, Dosing Weight 102.273, kg, Q6H, PRN Pain Score 1-3, Start date: 09/03/18 14:28:00 [employer], Duration: 30 day, Stop date: 10/03/18 14:27:00 [employer] No Longer Active 09/03/2018 [facility] Morphine 2 mg, Route: IVP, Q4H , Dosing Weight 102.273, kg, PRN Pain Score 7-10, Start date: 09/03/18 14:28:00 [employer], Duration: 30 day, Stop date: 10/03/18 14:27:00 [employer] No Longer Active 09/03/2018 [facility] pantoprazole Notes: Tablet chyna uld not be chewed or crushed. (Same as: Protonix) N o Longer Active 07/27/2018 [facility] nter Sertraline Notes: (Same as: Zo onift) Inactive 07/27/2018 [facility] Acetaminophen 500 MG Oral Tablet 1,000 mg = 2 tab, PO, Q6H, PRN Pain Score 4-6, 0 Refill(s) No Longer Active 07/26/2018 [facility] tramadol hydrochloride 50 MG Oral Tablet 50 mg = 1 tab, PO, Q6H, PRN Pain Score 7-10, # 12 tab, 0 Refill(s) No Longer Active 07/26/2018 [facility] Symbicort 160/4.5 inhalation aerosol with adapter Notes: (Same as: Symbicort) WASTE: Aerosol - Return to Pharmacy Inactive 07/26/2018 [facility] valsartan Notes: Same as Diovan Inactive 07/26/2018 [facility] torsemide Notes: (Same As: Dem adex) Inactive 07/26/2018 [facility] gabapentin 600 MG Oral Tablet Notes: (Same as: Neurontin) Inactive 07/26/2018 [facility] Thyroxine Notes: Take 1 hour b efore or 2 hours after meal; Enteral feeds may interefere with the absorption of this medication. (Same as:Levothroid) Inactive 07/26/2018 [facility] Carbidopa 50 MG / Levodopa 200 MG Extend ed Release Tablet Notes: "Do Not Crush" Take with milk or food. (Same As: Sinemet CR) Inactive 07/26/2018 [facility] 200 ACTUAT Albuterol 0.09 MG/ACTUAT Mete red Dose Inhaler [ProAir HFA] Notes: Albuterol 90 microgram/inh 8gm HF A WASTE: Aerosol - Return to Pharmacy Same as: Brenda Irving Inactive 07/26/2018 [facility] nter Tramadol Notes: Not to exceed 400mg/day. (Same As: Ultram) Inactive 07/26/2018 [facility] Acetaminophen 1,000 mg, 2 tab, Route: PO, Drug form: TAB, Q6H, Dosing Weight 102.273, kg, PRN Pain Score 4-6, Start date: 07/26/18 7:41:00 [employer], Duration: 30 day, Stop date: 08/25/18 7:40:00 [employer] Inactive 07/26/2018 [facility] Dextrose 50% Syringe 25 gm, 50 mL, Route: IVP, Drug Form: INJ, Dosing Weight 102.273, kg, PRN, PRN Blood Glucose Results, Start date: 07/25/18 15:20:00 [employer], Duration: 30 day, Stop date: 08/24/18 15:19:00 [employer] No Longer Active 07/25/2018 [facility] Glucagon 1 mg, Route: IM, Drug form: PDR/INJ, PRN, Dosing Weight 102.273, kg, PRN Blood Glucose Results, Start date: 07/25/18 15:20:00 [employer], Duration: 30 day, Stop date: 08/24/18 15:19:00 [employer] No Longer Active 07/25/2018 [facility] Labetalol Notes: (Same as: Nor modyne, Trandate) Push over 2 minutes Give bolus over 2-3 minutes. Inactive 07/25/2018 [facility] nter Hydralazine Notes: (Same as: A presoline) Push over 5 minutes Inactive 07/25/2018 [facility] Oxycodone Notes: (Same as: Liss icodone) Inactive 07/25/2018 [facility] Flumazenil Notes: (Same as: Ro mazicon) Inactive 07/25/2018 [facility] Hydromorphone Notes: Same as D ilaudid Inactive 07/25/2018 [facility] Naloxone Notes: Same as Narcan Inactive 07/25/2018 [facility] Ondansetron Notes: (Same as: Mariah lacey) MEDICATION WASTE Product Size: 4 mg Product Wasted: ___ mg Inactive 07/25/2018 [facility] phenylephrine (ANES) Route: IV , Drug form: INJ, ONCE, Stop date: 07/25/18 14:19:00 [employer] Inactive 07/25/2018 [facility] nter ondansetron (ANES) Route: IV, Drug form: INJ, ONCE, Stop date: 07/25/18 14:19:00 [employer] Inactive 07/25/2018 [facility] nter fentaNYL (ANES) Route: IV, Bertrand g form: INJ, ONCE, Stop date: 07/25/18 14:19:00 [employer] Inactive 07/25/2018 [facility] nter neostigmine (ANES) Route: IV, Drug form: INJ, ONCE, Stop date: 07/25/18 14:19:00 [employer] Inactive 07/25/2018 [facility] nter glycopyrrolate (ANES) Route: I V, Drug form: INJ, ONCE, Stop date: 07/25/18 14:19:00 [employer] Inactive 07/25/2018 [facility] nter ePHEDrine (ANES) Route: IV, Dr ug form: INJ, ONCE, Stop date: 07/25/18 14:19:00 [employer] Inactive 07/25/2018 [facility] nter lidocaine (ANES) Route: IV, Dr ug form: INJ, ONCE, Stop date: 07/25/18 14:19:00 [employer] Inactive 07/25/2018 [facility] nter midazolam (ANES) Route: IV, Dr ug form: SOLN, ONCE, Stop date: 07/25/18 14:19:00 [employer] Inactive 07/25/2018 [facility] nter rocuronium (ANES) Route: IV, D rug form: INJ, ONCE, Stop date: 07/25/18 14:19:00 [employer] Inactive 07/25/2018 [facility] nter propofol (ANES) Route: IV, Bertrand g form: INJ, ONCE, Stop date: 07/25/18 14:19:00 [employer] Inactive 07/25/2018 [facility] nter ceFAZolin (ANES) Route: IV, Dr ug form: INJ, ONCE, Stop date: 07/25/18 14:18:00 [employer] Inactive 07/25/2018 [facility] nter Lactated Ringers Injection IV (ANES) 1000 mL Route: IV, Total Volume: 1,000, Start date: 07/25/18 13:08:00 [employer], Stop date: 07/25/18 14:08:00 [employer] Inactive 07/25/2018 [facility] Ofirmev Notes: Infuse over 15 minutes Do not exceed 4gm/day of acetaminophen MEDICATION WASTE Product Size: 1000 mg Product Wasted: ___ mg No Longer Active 07/25/2018 [facility] scopolamine Notes: Change patc h every 72 hours (Same as: Transderm-Scop) Inactive 07/25/2018 [facility] heparin Notes: porcine heparin Inactive 07/25/2018 [facility] ceFAZolin + sterile water 20 mL Notes: (Same As: Fanny Miranda) MEDICATION WASTE Product Size: 1000 mg Product Wasted: ___ mg No Longer Active 07/25/2018 [facility] remove patch Notes: Remove old patch before application of new patch. No Longer Active 07/25/2018 [facility] patiromer 8400 MG Powder for Oral Suspension [Veltassa ] 8.4 gm, PO, Daily, 0 Refill(s) No Longer Active 07/24/2018 [facility] nt ampicillin 500 mg oral capsule 500 mg = 1 cap, PO, QID, 0 Refill(s) No Longer Active 07/24/2018 [facility] clindamycin 300 mg oral capsule 300 mg = 1 cap, PO, Q6H, X 10 day, # 40 cap, 0 Refill(s) No Longer Active 04/10/2018 [facility] nt tramadol hydrochloride 50 MG Oral Tablet 50 mg = 1 tab, PO, Q6H, # 10 tab, 0 Refill(s) No Longer Active 04/10/2018 [facility] nt pantoprazole 40 mg oral enteric coated tablet 40 mg = 1 tab, PO, Daily, # 30 tab, 3 Refill(s) No Longer Active 04/10/2018 [facility] nter Zoloft Notes: (Same as: Zoloft) Inactive 04/09/2018 [facility] Acetaminophen Notes: Max aceta minophen 4000 mg/day (4 gm/day). (Same as: Tylenol Extra Strength) No Longer Active 04/09/2018 [facility] Lovenox Notes: (Same as: Loven ox) No Longer Active 04/09/2018 [facility] neostigmine (ANES) Route: IV, Drug form: INJ, ONCE, Stop date: 04/08/18 17:45:00 CDT Inactive 04/08/2018 [facility] nt glycopyrrolate (ANES) Route: I V, Drug form: INJ, ONCE, Stop date: 04/08/18 17:45:00 CDT Inactive 04/08/2018 [facility] nter ketOROLAC (ANES) IV, ONCE Inactive 04/08/2018 [facility] nter ondansetron (ANES) Route: IV, Drug form: INJ, ONCE, Stop date: 04/08/18 17:43:00 CDT Inactive 04/08/2018 [facility] nter famotidine (ANES) Route: IV, D rug form: INJ, ONCE, Stop date: 04/08/18 16:48:00 CDT Inactive 04/08/2018 [facility] nter dexamethasone (ANES) Route: IV , Drug form: INJ, ONCE, Stop date: 04/08/18 16:48:00 CDT Inactive 04/08/2018 [facility] nter phenylephrine (ANES) Route: IV , Drug form: INJ, ONCE, Stop date: 04/08/18 16:23:00 CDT Inactive 04/08/2018 [facility] nter fentaNYL (ANES) Route: IV, Bertrand g form: INJ, ONCE, Stop date: 04/08/18 16:23:00 CDT Inactive 04/08/2018 [facility] nter rocuronium (ANES) Route: IV, D rug form: INJ, ONCE, Stop date: 04/08/18 16:23:00 CDT Inactive 04/08/2018 [facility] nter propofol (ANES) Route: IV, Bertrand g form: INJ, ONCE, Stop date: 04/08/18 16:23:00 CDT Inactive 04/08/2018 [facility] nter lidocaine (ANES) Route: IV, Dr ug form: INJ, ONCE, Stop date: 04/08/18 16:23:00 CDT Inactive 04/08/2018 [facility] nter midazolam (ANES) Route: IV, Dr ug form: SOLN, ONCE, Stop date: 04/08/18 16:18:00 CDT Inactive 04/08/2018 [facility] nt Albuterol 0.83 MG/ML Inhalant Solution 2.49 mg, Route: NEB, PRN, Dosing Weight 99.602, kg, PRN Respiratory Pathway, Start date: 04/08/18 16:04:00 CDT, Duration: 30 day, Stop date: 05/08/18 16:03:00 CDT Inactive 04/08/2018 [facility] Metoprolol 1 mg, Route: IVP, Q 5Min, Dosing Weight 99.602, kg, PRN Other -See Comment, Start date: 04/08/18 16:04:00 CDT, Duration: 5 doses or times, Stop date: Limited # of times Inactive 04/08/2018 [facility] Oxycodone 5 mg, Route: PO, Bertarnd g form: TAB, Q4H, Dosing Weight 99.602, kg, PRN Pain Score 4-6, Start date: 04/08/18 16:04:00 CDT, Duration: 30 day, Stop date: 05/08/18 16:03:00 CDT Inactive 04/08/2018 [facility] Hydromorphone 0.5 mg, Route: I DOCUMENTATION SPECIALIST, Q5Min, Dosing Weight 99.602, kg, PRN, Start date: 04/08/18 16:04:00 CDT, Duration: 4 doses or times, Stop date: Limited # of times, Pain Score 4-10 Inactive 04/08/2018 [facility] esmolol 10 mg, Route: IVP, Q5M in, Dosing Weight 99.602, kg, PRN Other -See Comment, Start date: 04/08/18 16:04:00 CDT, Duration: 5 doses or times, Stop date: Limited # of times Inactive 04/08/2018 [facility] Promethazine 6.25 mg, Route: I VPB, ONCE, Dosing Weight 99.602, kg, PRN Nausea & Vomiting, Start date: 04/08/18 16:04:00 CDT Inactive 04/08/2018 [facility] Flumazenil 0.2 mg, Route: IVP, PRN, Dosing Weight 99.602, kg, PRN Benzodiazepine Reversal, Initial dose, Start date: 04/08/18 16:04:00 CDT, Duration: 30 day, Stop date: 05/08/18 16:03:00 CDT Inactive 04/08/2018 [facility] Naloxone 0.4 mg, Route: IVP, Q 2MIN, Dosing Weight 99.602, kg, PRN Narcotic Reversal, Start date: 04/08/18 16:04:00 CDT, Duration: 8 doses or times, Stop date: Limited # of times Inactive 04/08/2018 [facility] Ondansetron 4 mg, Route: IVP, ONCE, Dosing Weight 99.602, kg, PRN Nausea & Vomiting, Start date: 04/08/18 16:04:00 CDT Inactive 04/08/2018 [facility] Sodium Chloride 0.9% IV (ANES) 100 mL + vancomycin (ANES) 500 mg Route: IV, Drug form: INJ, Start date: 0 04/08/18 15:37:00 CDT, Stop date: 04/08/18 16:37:00 CDT Inactive 04/08/2018 [facility] Sodium Chloride 0.9% IV (ANES) 100 mL + dexmedetomidine (ANES) 200 microgram Route: IV, Drug form: INJ, Start date: 0 04/08/18 15:32:00 CDT, Stop date: 04/08/18 16:32:00 CDT Inactive 04/08/2018 [facility] nt Sodium Chloride 0.9% IV (ANES) 100 mL + ketAMINE (ANES) 10 mg Route: IV, Drug form: INJ, Start date: 0 04/08/18 15:32:00 CDT, Stop date: 04/08/18 16:32:00 CDT Inactive 04/08/2018 [facility] Lactated Ringers Injection IV (ANES) 1000 mL Route: IV, Total Volume: 1,000, Start date: 04/08/18 15:21:00 CDT, Stop date: 04/08/18 16:21:00 CDT Inactive 04/08/2018 [facility] Oxycodone Hydrochloride 5 MG Oral Tablet Notes: (Same as: Roxicodone) No Longer Active 04/07/2018 [facility] nt tramadol hydrochloride 50 MG Oral Tablet 100 mg, Route: PO, Drug form: TAB, Q6H, Dosing Weight 99.602, kg, PRN Pain Score 4-6, Start date: 04/07/18 8:12:00 CDT, Duration: 30 day, Stop date: 05/07/18 8:11:00 CDT Inactive 04/07/2018 [facility] Vancomycin Notes: TIME CRITICA L MEDICATION (Same As: Vancocin) For adult patients only: Round to nearest 250 mg per Medical Staff approval No Longer Active 04/06/2018 [facility] Protonix 20 mg, Route: PO, Angella ly, Dosing Weight 99.602, kg, Start date: 04/06/18 9:00:00 CDT, Duration: 30 day, Stop date: 05/05/18 9:00:00 CDT No Longer Active 04/06/2018 [facility] gabapentin 600 MG Oral Tablet Notes: (Same as: Neurontin) No Longer Active 04/06/2018 [facility] Sertraline Notes: (Same as: Zo loft) No Longer Active 04/06/2018 [facility] Symbicort 160/4.5 inhalation aerosol with adapter Notes: (Same as: Symbicort) WASTE: Aerosol - Return to Pharmacy No Longer Active 04/06/2018 [facility] valsartan Notes: Same as Diovan No Longer Active 04/05/2018 [facility] Versed 1 mg, Route: IV, ONCE, Dosing Weight 99.602, kg, Start date: 04/05/18 14:54:00 CDT, Stop date: 04/05/18 14:54:00 CDT Inactive 04/05/2018 [facility] Fentanyl 50 microgram, Route: IV, ONCE, Dosing Weight 99.602, kg, Start date: 04/05/18 14:54:00 CDT, Stop date: 04/05/18 14:54:00 CDT Inactive 04/05/2018 [facility] gabapentin 600 MG Oral Tablet Notes: (Same as: Neurontin) Inactive 04/05/2018 [facility] 200 ACTUAT Albuterol 0.09 MG/ACTUAT Mete red Dose Inhaler [ProAir HFA] 2 puff, Route: INHALATION, Dosing Weight 99.602, kg, QID, Start date: 04/05/18 13:00:00 CDT, Duration: 30 day, Stop date: 05/05/18 9:00:00 CDT Inactive 04/05/2018 [facility] carbidopa-levodopa 50 mg-200 mg oral tab let, extended release Notes: "Do Not Crush" Take with milk or food. (Same As: Sinemet CR) No Longer Active 04/05/2018 [facility] Acetaminophen Notes: Infuse ov er 15 minutes Do not exceed 4gm/day of acetaminophen MEDICATION WASTE Product Size: 1000 mg Product Wasted: _0__ mg No Longer Active 04/05/2018 [facility] nter Protonix Notes: Tablet should not be chewed or crushed. (Same as: Protonix) No Longer Active 04/05/2018 [facility] nter Blistex topical ointment Notes : Same as: Blistex No Longer Active 04/05/2018 [facility] Blistex Lip [place] Route: TOP, D osing Weight 99.602, kg, PRN, PRN Dry Lips, Start date: 04/05/18 10:00:00 CDT, Duration: 30 day, Stop date: 05/05/18 9:59:00 CDT Inactive 04/05/2018 [facility] nter torsemide Notes: (Same As: Dem adex) No Longer Active 04/05/2018 [facility] valsartan 80 mg oral tablet 80 mg = 1 tab, PO, BID, # 30 tab, 0 Refill(s) Active 04/05/2018 [facility] torsemide 20 mg oral tablet 20 mg = 1 tab, PO, Daily, # 30 tab, 1 Refill(s) Active 04/05/2018 [facility] levothyroxine 125 mcg (0.125 mg) oral tablet 125 microgram = 1 tab, PO, QAM, # 30 tab, 0 Refill(s) No Longer Active 04/05/2018 [facility] Carbidopa 50 MG / Levodopa 200 MG Extend ed Release Tablet 1 tab, PO, BID, # 60 tab, 0 Refill(s) Active 04/05/2018 [facility] nter testosterone cypionate 200 mg/mL intramuscular solutio n 200 mg = 1 ml, IM, 0 Refill(s) Active 04/05/2018 [facility] nter sertraline 100 mg oral tablet 100 mg = 1 tab, PO, Bedtime, # 30 tab, 0 Refill(s) No Longer Active 04/05/2018 [facility] nter Thyroxine Notes: Take 1 hour b efore or 2 hours after meal; Enteral feeds may interefere with the absorption of this medication. (Same as:Levothroid) No Longer Activ e 04/05/2018 [facility] Carbidopa 25 MG / Levodopa 100 MG Oral Tablet 1 tab, Route: PO, Drug Form: TAB, Dosing Weight 99.602, kg, BID, Start date: 04/05/18 9:00:00 CDT, Duration: 30 day, Stop date: 05/04/18 17:00:00 CDT Inactive 04/05/2018 [facility] 200 ACTUAT Albuterol 0.09 MG/ACTUAT Mete red Dose Inhaler [ProAir HFA] 2 puff, INHALER, Q6H, PRN wheezing, coug jeniffer, or shortness of breath, # 1 ea, 1 Refill(s) Active 04/05/2018 [facility] nter Symbicort 160/4.5 inhalation aerosol with adapter 2 puff, INHALATION, BID, # 1 ea, 1 Refill(s) Active 04/05/2018 [facility] nter Vancomycin 2001 mg: infuse ov er 2.5 hours For adult patients only: Round to nearest 250 mg per Medical Staff approval MEDICATION WASTE Product Size: 1000 mg Product Wasted: ___ mg No Longer Active 04/05/2018 [facility] Lactated Ringers IV 1,000 mL 1 ,000 mL, Rate: 125 ml/hr, Infuse over: 8 hr, Route: IV, Dosing Weight 97.727 kg, Total Volume: 1,000, Priority: STAT, Start date: 04/04/18 20:25:00 CDT, Duration: 30 day, Stop date: 05/04/18 20:24:00 CDT, 2.16, m2 No Longer Active 04/05/2018 [facility] nter Sodium Chloride 0.9% IV 984.8 mL + M.V.I .-12 10 mL Daily + folic acid IV 1 mg Daily + thiamine IV 5 984.8 mL, Rate: 125 ml/hr, Infuse over: 8 hr, Route: IV, Dosing Weight 97.727 kg, Total Volume: 1,000, Start date: 04/04/18 20:10:00 CDT, Duration: 1 doses or times, Stop date: 04/05/18 4:09:00 CDT, 2.16, m2 No Longer Active 04/05/2018 [facility] iodixanol 100 mL, Route: IVP, Drug Form: SOLN, Dosing Weight 97.727, kg, ONCALL, STAT, Start date: 04/04/18 14:49:00 CDT, Duration: 1 doses or times, Dose = 2.2ml/kg, Max dose = 100ml -- "To be infused by Rad iology Staff ONLY" Inactive 04/04/2018 [facility] Vancomycin 2001 mg: infuse ov er 2.5 hours For adult patients only: Round to nearest 250 mg per Medical Staff approval MEDICATION WASTE Product Size: 1000 mg Product Wasted: ___ mg Inactive 04/04/2018 [facility] Flagyl Notes: (Same as: [place]) Inactive 04/04/2018 [facility] normal saline 0.9% IV 1000 mL 1,000 mL, Rate: 100 ml/hr, Infuse over: 10 hr, Route: IV, Dosing Weight 97.727 kg, Total Volume: 1,000, Start date: 04/04/18 12:24:00 CDT, Duration: 30 day, Stop date: 05/04/18 12:23:00 CDT, 2.16, m2 Inactiv e 04/04/2018 [facility] Ceftriaxone 1 gm, Route: IVPB, Drug form: PDR/INJ, ONCE, Dosing Weight 97.727, kg, Priority: STAT, Start date: 04/04/18 11:48:00 CDT, Stop date: 04/04/18 11:48:00 CDT, ABX Indication: Skin/Soft Tissue Infection Inactive 04/04/2018 [facility] Saline Flush 0.9% Notes: Same as: BD Posiflush Sterile No Longer Active 04/04/2018 [facility] Sodium Chloride 0.9% (Bolus) IV 2,931.81 mL, 1954.54 ml/hr, Infuse Over: 1.5 hr, Route: IV, 2,931.81, Drug form: INJ, ONCE, Priority: STAT, Dosing Weight 97.727 kg, Start date: 04/04/18 11:48:00 CDT, Stop date: 04/04/18 11:48:00 CDT Inactive 04/04/2018 [facility] Carbidopa 25 MG / Levodopa 100 MG Oral Tablet 1 tab, PO, BID, # 90 tab, 0 Refill(s) No Longer Active 04/04/2018 [facility] nter Protonix Notes: Tablet should not be chewed or crushed. (Same as: Protonix) Inactive 08/14/2017 [facility] heparin sodium, porcine 2500 UNT/ML Injectable Solutio n Notes: porcine heparin Inactiv e 08/14/2017 [facility] Levetiracetam 500 MG Oral Tablet [Keppra] 500 mg = 1 tab, PO, Q12H, # 12 tab, 0 Refill(s) Active 08/14/2017 [facility] nter Thiamine Notes: (Same As: [place] min B1) Inactive 08/14/2017 [facility] multivitamin Notes: (Same as:T ihsan) WASTE: F/P - Black; E - Municipal Trash Bin Take with food. Inactive 08/14/2017 [facility] Folic Acid Notes: (Same as: Fo lvite) Inactive 08/14/2017 [facility] torsemide Notes: (Same As: Dem adex) Inactive 08/14/2017 [facility] Levetiracetam 500 MG Oral Tablet [Keppra] Notes: (Same as:Keppra) Inactive 08/14/2017 [facility] Triiodothyronine Notes: (Same as: Cytomel) Inactive 08/14/2017 [facility] Omeprazole 20 mg, Route: PO, D rug form: ECTAB, Daily, Dosing Weight 100, kg, Start date: 08/14/17 9:00:00 [employer], Duration: 30 day, Stop date: 09/12/17 9:00:00 [employer] No Longer Active 08/14/2017 [facility] nter Thyroxine Notes: Take 1 hour b efore or 2 hours after meal; Enteral feeds may interefere with the absorption of this medication.(Same as:Levothroid, Synthroid) Inactive 08/14/2017 [facility] nter gabapentin 600 MG Oral Tablet Notes: (Same as: Neurontin) No Longer Active 08/14/2017 [facility] Ranitidine Notes: (Same as:Rene tac) Take before or with meals No Longer Active 08/14/2017 [facility] metoprolol tartrate Notes: (Sa me as: Lopressor) No Longer Active 08/14/2017 [facility] Regular Insulin, Human 100 UNT/ML Injectable Solution 60 units) WASTE: F/P - Black; E - Municipal Trash Bin Stable for 28 days at room temperature Expires in days from Date No Longer Active 08/14/2017 [facility] Dextrose 50% Syringe 6.25 gm, 12.5 mL, Route: IVP, Drug Form: INJ, Dosing Weight 100, kg, PRN, PRN Abnormal Lab Result, Start date: 08/13/17 20:03:00 [employer], Duration: 30 day, Stop date: 09/12/17 20:02:00 [employer] No Longer Active 08/14/2017 [facility] Amiodarone Notes: (Same as: Co rdarone) No Longer Active 08/14/2017 [facility] Acetaminophen 325 MG / Hydrocodone Zechariah trate 5 MG Oral Tablet [Peggs 5/325] Notes: (Same as: Peggs 325/5) Do not ex ceed 4gm/day of acetaminophen. No Longer Activ e 08/14/2017 [facility] Labetalol 10 mg, 2 mL, Route: IVP, Drug form: INJ, Q15Min, Dosing Weight 100, kg, PRN Hypertension, Start date: 08/13/17 18:38:00 [employer], Duration: 30 day, Stop date: 09/12/17 18:37:00 [employer] No Longer Active 08/14/2017 [facility] Hydralazine Notes: (Same as: A presoline) Push over 5 minutes No Longer Active 08/14/2017 [facility] Dilaudid 0.5 mg, Route: IVP, O NCE, kg, Priority: STAT, Start date: 08/13/17 16:07:00 [employer], Stop date: 08/13/17 16:07:00 [employer] Inactive 08/13/2017 [facility] ranitidine 300 mg oral capsule 300 mg = 1 cap, PO, Bedtime, 0 Refill(s) Active 08/13/2017 [facility] levothyroxine 50 mcg (0.05 mg) oral tablet 50 microgram = 1 tab, PO, Daily, 0 Refill(s) Active 08/13/2017 [facility] nter torsemide 10 mg oral tablet 10 mg = 1 tab, PO, Daily, 0 Refill(s) Active 08/13/2017 [facility] AMIODarone 200 mg oral tablet 200 mg = 1 tab, PO, Daily, # 90 tab, 3 Refill(s) Active 08/13/2017 [facility] gabapentin 600 MG Oral Tablet 600 mg = 1 tab, PO, QID, 0 Refill(s) Active 08/13/2017 [facility] metoprolol tartrate 25 mg oral tablet 25 mg = 1 tab, PO, BID, 0 Refill(s) Active 08/13/2017 [facility] rivaroxaban 20 MG Oral Tablet [Xarelto] 20 mg = 1 tab, PO, QPM, 0 Refill(s) No Longer Active 08/13/2017 [facility] nter liothyronine 5 mcg oral tablet 5 microgram = 1 tab, PO, Daily, 0 Refill(s) Active 08/13/2017 [facility] omeprazole 20 mg oral enteric coated tablet 20 mg = 1 tab, PO, Daily, 0 Refill(s) Active 08/13/2017 [facility] nter Dilaudid Notes: Same as Dilaud id Inactive 08/13/2017 [facility] Lidocaine Hydrochloride 10 MG/ML Injectable Solution Notes: (Same as: Xylocaine) Inactive 08/13/2017 [facility] nter Saline Flush 0.9% Notes: Same as: BD Posiflush Sterile No Longer Active 08/13/2017 [facility] sennosides, DETENTION Notes: (Same a s: Senokot) No Longer Active 08/13/2017 [facility] Docusate Notes: (Same as: Cola ce) (Do Not Crush) No Longer Active 08/13/2017 [facility] Levetiracetam Notes: Same as K eppra Mix with 100 mL NS, LR or D5W MEDICATION WASTE Product Size: 500 mg Product Wasted: ___ mg Inactive 08/13/2017 [facility] Fentanyl 50 kg Inactive 08/13/2017 [facility] nter Saline Flush 0.9% Notes: (Same as: BD Posiflush) No Longer Active 08/13/2017 [facility] Ondansetron Notes: (Same as: Mariah lacey) MEDICATION WASTE Product Size: 4 mg Product Wasted: ___ mg No Longer Active 08/13/2017 [facility] Bisacodyl Notes: (Same As: Dul colax, Bisco-Lax) No Longer Active 08/13/2017 [facility] Acetaminophen 325 MG / Hydrocodone Zechariah trate 10 MG Oral Tablet Notes: Do not exceed 4gm/day of acetamin ophen. (Same as: Peggs 325/10) Inactive 08/13/2017 [facility] Acetaminophen Notes: Do not ex ceed 4 gm/day. (Same as: Tylenol) No Longer Active 08/13/2017 [facility] Acetaminophen 325 MG / Hydrocodone Zechariah trate 5 MG Oral Tablet Notes: (Same as: Peggs 325/5) Do not ex ceed 4gm/day of acetaminophen. Inactive 08/13/2017 [facility] Sodium Chloride 0.9% IV 1,000 mL 1,000 mL, Rate: 50 ml/hr, Infuse over: 20 hr, Route: IV, Total Volume: 1,000, Start date: 08/13/17 6:18:00 [employer], Duration: 30 day, Stop date: 09/12/17 6:17:00 [employer] No Longer Active 08/13/2017 [facility] Keppra 1,000 mg, Route: IV, ON CE, kg, Priority: NOW, Start date: 08/13/17 5:08:00 [employer], Stop date: 08/13/17 5:08:00 [employer] Inactive 08/13/2017 [facility] Saline Flush 0.9% Notes: Same as: BD Posiflush Sterile No Longer Active 08/13/2017 [facility] Fentanyl 50 microgram, Route: IVP, Drug form: INJ, ONCE, Dosing Weight 90.909, kg, Start date: 02/16/17 15:02:00 CDT, Stop date: 02/16/17 15:02:00 CDT Inactive 02/16/2017 [facility] Versed 0.5 mg, Route: IV, ONCE , Dosing Weight 90.909, kg, Start date: 02/08/17 10:30:00 CDT, Stop date: 02/08/17 10:30:00 CDT Inactive 02/08/2017 [facility] Fentanyl 25 microgram, Route: IV, ONCE, Dosing Weight 90.909, kg, Start date: 02/08/17 10:30:00 CDT, Stop date: 02/08/17 10:30:00 CDT, Inactive 02/08/2017 [facility] Versed 0.5 mg, Route: IV, ONCE , Dosing Weight 90.909, kg, Start date: 02/08/17 10:00:00 CDT, Stop date: 02/08/17 10:00:00 CDT Inactive 02/08/2017 [facility] Fentanyl 25 microgram, Route: IV, ONCE, Dosing Weight 90.909, kg, Start date: 02/08/17 10:00:00 CDT, Stop date: 02/08/17 10:00:00 CDT, Inactive 02/08/2017 [facility] Fentanyl 50 microgram, Route: IV, ONCE, Dosing Weight 90.909, kg, Start date: 02/08/17 9:20:00 CDT, Stop date: 02/08/17 9:20:00 CDT, Inactive 02/08/2017 [facility] Versed 1 mg, Route: IV, ONCE, Dosing Weight 90.909, kg, Start date: 02/08/17 9:20:00 CDT, Stop date: 02/08/17 9:20:00 CDT Inactive 02/08/2017 [facility] melatonin 3 mg oral tablet 3 m g = 1 tab, PO, Bedtime, PRN Sleep, 0 Refill(s) Active 10/09/2016 [facility] Ibuprofen 400 MG Oral Tablet 4 00 mg = 1 tab, PO, Q4H, PRN Pain, X 7 day, # 42 tab, 0 Refill(s) Active 10/09/2016 [facility] nter tramadol hydrochloride 50 MG Oral Tablet 50 mg = 1 tab, PO, Q6H, PRN Pain, X 7 day, # 28 tab, 0 Refill(s) Active 10/09/2016 [facility] nter Trazodone Notes: (Same As: Laron yrel) Inactive 10/09/2016 [facility] remove patch Notes: Remove old patch before application of new patch. Inactive 10/09/2016 [facility] Trazodone Hydrochloride 50 MG Oral Tablet Notes: (Same As: Desyrel) Inactive 10/09/2016 [facility] Melatonin Notes: (Same as: Jeanie atonin) No Longer Active 10/08/2016 [facility] Xarelto Notes: (Same as: Xarel to) Administer with food No Longer Active 10/07/2016 [facility] pantoprazole 40 mg, Route: PO, Drug form: ECTAB, Before Breakfast, Dosing Weight 84.091, kg, Start date: 10/07/16 7:30:00 [employer], Duration: 30 day, Stop date: 11/05/16 7:30:00 CDT No Longer Active 10/07/2016 [facility] nter Protonix Notes: Tablet should not be chewed or crushed. (Same as: Protonix) No Longer Active 10/06/2016 [facility] nter Thyroxine Notes: Take 1 hour b efore or 2 hours after meal; Enteral feeds may interefere with the absorption of this medication. (Same as:Synthroid, Levothroid) No Longer Active 10/06/2016 [facility] nter Sertraline Notes: (Same as: Z oloft) No Longer Active 10/06/2016 [facility] Omeprazole 20 mg, Route: PO, D rug form: DRC, Daily, Dosing Weight 84.091, kg, Start date: 10/06/16 9:00:00 [employer], Duration: 30 day, Stop date: 11/04/16 9:00:00 CDT Inactive 10/06/2016 [facility] nter metoprolol tartrate Notes: (Sa me as: Lopressor) No Longer Active 10/06/2016 [facility] Amiodarone Notes: (Same as: Co rdarone) No Longer Active 10/06/2016 [facility] Lovenox Notes: (Same as: Loven ox) Inactive 10/06/2016 [facility] heparin sodium, porcine 2500 UNT/ML Injectable Solutio n Notes: porcine heparin Inactiv e 10/06/2016 [facility] Plasma-Lyte A PH-7.4 1000 ml INJ 1,000 mL Notes: WASTE: F/P - Sink; E - Municipal Trash Bin No Longer Active 10/06/2016 [facility] nter Isolyte S PH-7.4 (Bolus) IV No kristine: (Same as: Isolyte S PH7.4) Inactive 10/06/2016 [facility] Insulin, Aspart, Human Notes: Roll in palms of hands gently; Do not shake vigorously. (Same as: NovoLOG) "single patient use only" WASTE: F/P - Black; E - Municipal Trash Bin Stable for 28 days at room temperature. Expires in days from Date No Longer Active 10/06/2016 [facility] Dextrose 50% Syringe 25 gm, 50 mL, Route: IVP, Drug Form: INJ, Dosing Weight 84.091, kg, PRN, PRN Blood Glucose Results, Start date: 10/06/16 5:50:00 [employer], Duration: 30 day, Stop date: 11/05/16 6:49:00 CDT No Longer Active 10/06/2016 [facility] Glucagon 1 mg, Route: IM, Drug form: PDR/INJ, PRN, Dosing Weight 84.091, kg, PRN Blood Glucose Results, Start date: 10/06/16 5:50:00 [employer], Duration: 30 day, Stop date: 11/05/16 6:49:00 CDT No Longer Active 10/06/2016 [facility] Flomax Notes: (Same As: Flomax ) "Do Not Crush" No Longer Active 10/06/2016 [facility] Docusate Sodium 100 MG Oral Capsule Notes: (Same as: Colace) (Do Not Crush) No Longer Active 10/05/2016 [facility] nter Labetalol 10 mg, 2 mL, Route: IVP, Drug form: INJ, Q5Min, Dosing Weight 84.091, kg, PRN Elevated BP, Start date: 10/05/16 16:07:00 [employer], Duration: 5 doses or times, Stop date: Limited # of times Inactive 10/05/2016 [facility] Flumazenil Notes: (Same as: Ro mazicon) Inactive 10/05/2016 [facility] Naloxone Notes: Same as Narcan Inactive 10/05/2016 [facility] Ondansetron Notes: (Same as: Mariah lacey) MEDICATION WASTE Product Size: 4 mg Product Wasted: ___ mg Inactive 10/05/2016 [facility] Hydralazine Notes: (Same as: A presoline) Push over 5 minutes Inactive 10/05/2016 [facility] Oxycodone Hydrochloride 5 MG Oral Tablet Notes: (Same as: Roxicodone) No Longer Active 10/05/2016 [facility] nter Acetaminophen Notes: Max aceta minophen 4000 mg/day (4 gm/day). (Same as: Tylenol Extra Strength) No Longer Active 10/05/2016 [facility] gabapentin Notes: (Same as: Ne urontin) No Longer Active 10/05/2016 [facility] Tramadol Notes: Not to exceed 400mg/day. (Same As: Ultram) No Longer Active 10/05/2016 [facility] celecoxib Notes: NSAID. Please check indication. Not for seizure. (Same As: CeleBREX ) No Longer Active 10/05/2016 [facility] nter ropivacaine Notes: Same as: Na ropin No Longer Active 10/05/2016 [facility] Enoxaparin 40 mg, Route: SUB-Q , Drug form: INJ, [id number], Dosing Weight 84.091, kg, Start date: 10/05/16 15:00:00 [employer], Duration: 30 day, Stop date: 11/03/16 15:00:00 CDT Inactive 10/05/2016 [facility] nter Ancef 1 gm, Route: IVPB, ONCE, Dosing Weight 84.091, kg, Start date: 10/05/16 11:50:00 [employer], Stop date: 10/05/16 11:50:00 [employer] Inactive 10/05/2016 [facility] Ofirmev Notes: Infuse over 15 minutes Do not exceed 4gm/day of acetaminophen MEDICATION WASTE Product Size: 1000 mg Product Wasted: ___ mg No Longer Active 10/05/2016 [facility] nter scopolamine Notes: Change patc h every 72 hours (Same as: Transderm-Scop) Inactive 10/05/2016 [facility] ceFAZolin Notes: Same as: Ancef Inactive 10/05/2016 [facility] Ondansetron 4 MG Disintegrating Tablet [Zofran] 4 mg = 1 tab, PO, BID, PRN Nausea and Vomiting, Dissolve tab under tongue, X 5 day, # 10 tab, 0 Refill(s) Active 09/12/2016 [facility] tramadol hydrochloride 50 MG Oral Tablet 50 mg = 1 tab, PO, Q4H, X 3 day, # 18 tab, 0 Refill(s) Active 09/12/2016 [facility] nt Acetaminophen 300 MG / Codeine Phosphate 30 MG Oral Tablet [Tylenol with Codeine #3] 1 - 2 tab, PO, Q6H, PRN Pain, X 4 day, # 32 tab, 0 Refill(s) Active 09/12/2016 [facility] rivaroxaban 20 MG Oral Tablet [Xarelto] 20 mg = 1 tab, PO, QPM, # 30 tab, 3 Refill(s) Active 09/12/2016 [facility] nt Habitrol Notes: (Same as: Jannette beverly) "Remove old patch before application of new patch" WASTE: F/P - P Waste Black; E - P Waste Black Inactive 09/12/2016 [facility] tramadol hydrochloride 50 MG Oral Tablet 50 mg = 1 tab, PO, Q4H, X 3 day, # 18 tab, 0 Refill(s) Inactive 09/12/2016 [facility] nt Acetaminophen 300 MG / Codeine Phosphate 30 MG Oral Tablet [Tylenol with Codeine #3] 1 - 2 tab, PO, Q6H, PRN Pain, X 4 day, # 32 tab, 0 Refill(s) Inactive 09/12/2016 [facility] Ondansetron 4 MG Disintegrating Tablet [Zofran] 4 mg = 1 tab, PO, BID, PRN Nausea and Vomiting, Dissolve tab under tongue, X 5 day, # 10 tab, 0 Refill(s) Inactive 09/12/2016 [facility] Amlodipine Notes: (Same as: No rvasc) No Longer Active 09/11/2016 [facility] Magnesium Sulfate Notes: WASTE : F/P - Sink; E - Municipal Trash Bin Inactive 09/11/2016 [facility] Plasma-Lyte A PH-7.4 1000 ml INJ 1,000 mL Notes: WASTE: F/P - Sink; E - Municipal Trash Bin No Longer Active 09/10/2016 [facility] nter Thyroxine Notes: Take 1 hour b efore or 2 hours after meal; Enteral feeds may interefere with the absorption of this medication. (Same as:Synthroid, Levothroid) No Longer Active 09/10/2016 [facility] nter metoprolol tartrate Notes: (Sa me as: Lopressor) No Longer Active 09/10/2016 [facility] Sertraline Notes: (Same as: Z oloft) No Longer Active 09/09/2016 [facility] Diltiazem Notes: (Same as: Car dizem CD) Do Not Crush Before meals. No Longer Active 09/09/2016 [facility] Amiodarone Notes: (Same as: Co rdarone) No Longer Active 09/09/2016 [facility] remove patch Notes: Remove old patch before application of new patch. WASTE: F/P - P Waste Black; E - P Waste Black No Longer Active 09/09/2016 [facility] Hydralazine Notes: (Same as: A presoline) Push over 5 minutes No Longer Active 09/09/2016 [facility] Nicotine Notes: (Same as: Jannette beverly) "Remove old patch before application of new patch" WASTE: F/P - P Waste Black; E - P Waste Black No Longer Active 09/08/2016 [facility] phenol Notes: Chloraseptic Spr ay (Same as: Chloraseptic, Sore Throat [place]) WASTE: F/P - Black; E - Municipal Trash Bin No Longer Active 09/08/2016 [facility] Lovenox Notes: (Same as: Loven ox) No Longer Active 09/08/2016 [facility] Protonix Notes: For IV push re constitute with 10 ml 0.9% sodium chloride and push over 2 minutes. (Same as: Protonix) No Longer Active 09/07/2016 [facility] Sodium Chloride 0.154 MEQ/ML Injectable Solution 500 mL, 500 ml/hr, Infuse Over: 1 hr, Route: IV, 500, Drug form: INJ, ONCE, Priority: STAT, Dosing Weight 84.091 kg, Start date: 09/07/16 16:00:00 [employer], Duration: 1 doses or times, Stop date: 09/07/16 16:00:00 [employer] Inactive 09/07/2016 [facility] nter diltiazem 120 mg/24 hours oral capsule, extended release 120 mg = 1 cap, PO, Daily, # 90 cap, 0 Refill(s) Active 09/07/2016 [facility] nter Furosemide 40 MG Oral Tablet 4 0 mg = 1 tab, PO, Daily Active 09/07/2016 [facility] metoprolol tartrate 25 mg oral tablet 25 mg = 1 tab, PO, BID, # 60 tab, 0 Refill(s) Active 09/07/2016 [facility] nter sertraline 50 mg oral tablet 5 0 mg = 1 tab, PO, Daily, # 30 tab, 1 Refill(s) Active 09/07/2016 [facility] levothyroxine 75 mcg (0.075 mg) oral tablet 75 microgram = 1 tab, PO, Daily, # 30 tab, 0 Refill(s) Active 09/07/2016 [facility] nter multivitamin 1 tab, PO, Daily, 0 Refill(s) Active 09/07/2016 [facility] liothyronine 50 mcg oral tablet 50 microgram = 1 tab, PO, Daily, # 30 tab, 0 Refill(s) Active 09/07/2016 [facility] nter Testosterone 0 Refill(s) Active 09/07/2016 [facility] nter omeprazole 20 mg oral delayed release capsule 20 mg = 1 cap, PO, Daily, # 30 cap, 1 Refill(s) Active 09/07/2016 [facility] nter rivaroxaban 20 MG Oral Tablet [Xarelto] 20 mg = 1 tab, PO, QPM, # 30 tab, 3 Refill(s) No Longer Active 09/07/2016 [facility] nter AMIODarone 200 mg oral tablet 200 mg = 1 tab, PO, Daily, # 90 tab, 3 Refill(s) Active 09/07/2016 [facility] Dilaudid Notes: Same as Dilaud id No Longer Active 09/07/2016 [facility] Ondansetron Notes: (Same as: Mariah lacey) MEDICATION WASTE Product Size: 4 mg Product Wasted: ___ mg No Longer Active 09/07/2016 [facility] Promethazine Notes: Do not giv e IV push. (Same as: Phenergan) No Longer Active 09/07/2016 [facility] Calcium Chloride 0.0014 MEQ/ML / Potassi um Chloride 0.004 MEQ/ML / Sodium Chloride 0.103 MEQ/ML / Sodium Lactate 0.028 MEQ/ML Injectable Solution 1,000 mL, Rate: 100 ml/hr, Infuse over: 10 hr, Route: IV, Dosing Weight 138.636 kg, Total Volume: 1,000, Start date: 09/07/16 9:15:00 [employer], Stop date: 10/07/16 9:14:00 [employer] No Longer Active 09/07/2016 [facility] nter Allergies, Adverse Reactions, Alerts Substance Category Reaction Severity Reaction type Status Date Reported Comments Source No Known Medication Allergies Assertion Drug aller gy [facility] Bactrim Assertion Drug allergy Active [facility] Immunizations Immunization Date Given Site Status Last Updated Comments Source influenza virus vaccine, inactivated 06/05/2019 Right deltoid completed [facility] pneumococcal 13-valent vaccine 06/05/2019 Left deltoid completed [facility] Results Order Name Results Value Reference Range Date Interpretation Comments Source Gram Stain Report Gram Stain Perf ormed By: [facility] 09/01/2019 [facility] Culture: Tissue Quant w/Gram Stain >100,000 Organisms/Gram Tissue Gram Pos Rods Suggestive of Diphtheroids 09/01/2019 [facility] CHEM PANEL Glucose Lvl 112 70 - 99 06/05/2019 [facility] CHEM PANEL BUN 21 7 - 22 06/05/2019 [facility] CHEM PANEL Creatinine Lvl 1.38 0.50 - 1.40 06/05/2019 [facility] CHEM PANEL Sodium Lvl 139 135 - 145 06/05/2019 [facility] CHEM PANEL Potassium Lvl 4.6 3.5 - 5.1 06/05/2019 [facility] CHEM PANEL Chloride Lvl 106 95 - 109 06/05/2019 [facility] CHEM PANEL CO2 26 24 - 32 06/05/2019 [facility] CHEM PANEL AGAP 11.6 10.0 - 20.0 06/05/2019 [facility] CHEM PANEL Calcium Lvl 9.4 8.5 - 10.5 06/05/2019 [facility] CHEM PANEL eGFR 50 06/05/2019 Result Comment: The eGFR is calculated using [...] should be multiplied by the estimated BMI. [facility] HEMATOLOGY Segs 76.0 45.0 - 75.0 06/05/2019 [facility] HEMATOLOGY Lymphocytes 12.5 20.0 - 40.0 06/05/2019 [facility] HEMATOLOGY Monocytes 6.8 2.0 - 12.0 06/05/2019 [facility] HEMATOLOGY Eosinophils 4.3 0.0 - 4.0 06/05/2019 [facility] HEMATOLOGY Basophils 0.4 0.0 - 1.0 06/05/2019 [facility] HEMATOLOGY Neutrophils # 7.3 1.5 - 8.1 06/05/2019 [facility] HEMATOLOGY Lymphocytes # 1.2 1.0 - 5.5 06/05/2019 [facility] HEMATOLOGY Monocytes # 0.7 0.0 - 0.8 06/05/2019 [facility] HEMATOLOGY Eosinophils # 0.4 0.0 - 0.5 06/05/2019 [facility] HEMATOLOGY WBC 9.6 3.7 - 10.4 06/05/2019 [facility] HEMATOLOGY RBC 4.16 4.70 - 6.10 06/05/2019 [facility] HEMATOLOGY Hgb 12.0 14.0 - 18.0 06/05/2019 [facility] HEMATOLOGY Hct 36.3 42.0 - 54.0 06/05/2019 [facility] HEMATOLOGY MCV 87.3 80.0 - 94.0 06/05/2019 [facility] HEMATOLOGY MCH 28.9 27.0 - 31.0 06/05/2019 [facility] HEMATOLOGY MCHC 33.1 32.0 - 36.0 06/05/2019 [facility] HEMATOLOGY RDW 19.5 11.5 - 14.5 06/05/2019 [facility] HEMATOLOGY Platelet 160 133 - 450 06/05/2019 [facility] HEMATOLOGY MPV 8.1 7.4 - 10.4 06/05/2019 [facility] CHEM PANEL Glucose Lvl 113 70 - 99 06/04/2019 [facility] CHEM PANEL BUN 34 7 - 22 06/04/2019 [facility] CHEM PANEL Creatinine Lvl 2.28 0.50 - 1.40 06/04/2019 [facility] CHEM PANEL Sodium Lvl 135 135 - 145 06/04/2019 [facility] CHEM PANEL Potassium Lvl 4.3 3.5 - 5.1 06/04/2019 [facility] CHEM PANEL Chloride Lvl 101 95 - 109 06/04/2019 [facility] CHEM PANEL CO2 27 24 - 32 06/04/2019 [facility] CHEM PANEL AGAP 11.3 10.0 - 20.0 06/04/2019 [facility] CHEM PANEL Calcium Lvl 8.8 8.5 - 10.5 06/04/2019 [facility] CHEM PANEL eGFR 27 06/04/2019 Result Comment: The eGFR is calculated using [...] should be multiplied by the estimated BMI. [facility] HEMATOLOGY Segs 72.5 45.0 - 75.0 06/04/2019 [facility] HEMATOLOGY Lymphocytes 14.8 20.0 - 40.0 06/04/2019 [facility] HEMATOLOGY Monocytes 7.6 2.0 - 12.0 06/04/2019 [facility] HEMATOLOGY Eosinophils 4.9 0.0 - 4.0 06/04/2019 [facility] HEMATOLOGY Basophils 0.2 0.0 - 1.0 06/04/2019 [facility] HEMATOLOGY Neutrophils # 6.6 1.5 - 8.1 06/04/2019 [facility] HEMATOLOGY Lymphocytes # 1.3 1.0 - 5.5 06/04/2019 [facility] HEMATOLOGY Monocytes # 0.7 0.0 - 0.8 06/04/2019 [facility] HEMATOLOGY Eosinophils # 0.4 0.0 - 0.5 06/04/2019 [facility] HEMATOLOGY WBC 9.1 3.7 - 10.4 06/04/2019 [facility] HEMATOLOGY RBC 4.09 4.70 - 6.10 06/04/2019 [facility] HEMATOLOGY Hgb 12.1 14.0 - 18.0 06/04/2019 [facility] HEMATOLOGY Hct 36.0 42.0 - 54.0 06/04/2019 [facility] HEMATOLOGY MCV 88.1 80.0 - 94.0 06/04/2019 [facility] HEMATOLOGY MCH 29.6 27.0 - 31.0 06/04/2019 [facility] HEMATOLOGY MCHC 33.7 32.0 - 36.0 06/04/2019 [facility] HEMATOLOGY RDW 20.2 11.5 - 14.5 06/04/2019 [facility] HEMATOLOGY Platelet 165 133 - 450 06/04/2019 [facility] HEMATOLOGY MPV 8.0 7.4 - 10.4 06/04/2019 [facility] URINE AND STOOL UA Color Yellow *NA* (06/04/19 12:16 AM) Yellow 06/04/2019 [facility] URINE AND STOOL UA Turbidity Clear (06/04/19 12:16 AM) Clear 06/04/2019 [facility] URINE AND STOOL UA Spec Grav 1.015 <=1.030 06/04/2019 [facility] URINE AND STOOL UA pH 5.0 5.0 - 8.0 06/04/2019 [facility] URINE AND STOOL UA Protein Negative mg/dL Negative mg/dL 06/04/2019 [facility] URINE AND STOOL UA Glucose Negative mg/dL Negative mg/dL 06/04/2019 [facility] URINE AND STOOL UA Ketones Negative mg/dL Negative mg/dL 06/04/2019 [facility] URINE AND STOOL UA Bili Negative *NA* (06/04/19 12:16 AM) Negative 06/04/2019 [facility] URINE AND STOOL UA Blood Negative (06/04/19 12:16 AM) Negative 06/04/2019 [facility] URINE AND STOOL UA Urobilinogen <1.0 0.1 - 1.0 06/04/2019 [facility] URINE AND STOOL UA Nitrite Negative (06/04/19 12:16 AM) Negative 06/04/2019 [facility] URINE AND STOOL UA Leuk Est Negative (06/04/19 12:16 AM) Negative 06/04/2019 [facility] URINE AND STOOL UA WBC 1 0 - 5 06/04/2019 [facility] URINE AND STOOL UA RBC <1 0 - 2 06/04/2019 [facility] URINE AND STOOL UA Mucus Few /LPF None Seen /LPF 06/04/2019 [facility] URINE AND STOOL UA Hyal Cast 4 0 - 2 06/04/2019 [facility] URINE AND STOOL UA Trans Epi 3 <=0 /LPF 06/04/2019 [facility] URINE AND STOOL UA Sq Epi None Seen 06/04/2019 [facility] URINE CHEM U Sodium 9 06/04/2019 [facility] URINE CHEM U Creatinine 168.00 06/04/2019 [facility] CHEM PANEL Glucose Lvl 141 70 - 99 06/03/2019 [facility] CHEM PANEL BUN 31 7 - 22 06/03/2019 [facility] CHEM PANEL Creatinine Lvl 3.22 0.50 - 1.40 06/03/2019 [facility] CHEM PANEL Sodium Lvl 135 135 - 145 06/03/2019 [facility] CHEM PANEL Potassium Lvl 4.6 3.5 - 5.1 06/03/2019 [facility] CHEM PANEL Chloride Lvl 102 95 - 109 06/03/2019 [facility] CHEM PANEL CO2 28 24 - 32 06/03/2019 [facility] CHEM PANEL Calcium Lvl 8.7 8.5 - 10.5 06/03/2019 [facility] CHEM PANEL eGFR 18 06/03/2019 Result Comment: The eGFR is calculated using [...] should be multiplied by the estimated BMI. [facility] CHEM PANEL AGAP 9.6 10.0 - 20.0 06/03/2019 [facility] HEMATOLOGY WBC 11.2 3.7 - 10.4 06/03/2019 [facility] HEMATOLOGY RBC 4.43 4.70 - 6.10 06/03/2019 [facility] HEMATOLOGY Hgb 12.7 14.0 - 18.0 06/03/2019 [facility] HEMATOLOGY Hct 38.3 42.0 - 54.0 06/03/2019 [facility] HEMATOLOGY MCV 86.5 80.0 - 94.0 06/03/2019 [facility] HEMATOLOGY MCH 28.7 27.0 - 31.0 06/03/2019 [facility] HEMATOLOGY MCHC 33.2 32.0 - 36.0 06/03/2019 [facility] HEMATOLOGY RDW 20.0 11.5 - 14.5 06/03/2019 [facility] HEMATOLOGY Platelet 201 133 - 450 06/03/2019 [facility] HEMATOLOGY MPV 7.7 7.4 - 10.4 06/03/2019 [facility] HEMATOLOGY Segs 80.5 45.0 - 75.0 06/03/2019 [facility] HEMATOLOGY Lymphocytes 8.8 20.0 - 40.0 06/03/2019 [facility] HEMATOLOGY Monocytes 7.8 2.0 - 12.0 06/03/2019 [facility] HEMATOLOGY Eosinophils 2.5 0.0 - 4.0 06/03/2019 [facility] HEMATOLOGY Basophils 0.4 0.0 - 1.0 06/03/2019 [facility] HEMATOLOGY Neutrophils # 9.0 1.5 - 8.1 06/03/2019 [facility] HEMATOLOGY Lymphocytes # 1.0 1.0 - 5.5 06/03/2019 [facility] HEMATOLOGY Monocytes # 0.9 0.0 - 0.8 06/03/2019 [facility] HEMATOLOGY Eosinophils # 0.3 0.0 - 0.5 06/03/2019 [facility] HEMATOLOGY Anisocyte 1+ *ABN* (06/03/19 8:44 AM) None Seen 06/03/2019 [facility] BLOOD BANK RESULTS ABO/Rh A POS 06/02/2019 [facility] BLOOD BANK RESULTS Antibody Scrn Negative (06/02/19 12:35 PM) 06/02/2019 [facility] IMMUNOLOGY Prealbumin 12.9 18.0 - 45.0 10/09/2018 [facility] CHEM PANEL eGFR 51 10/09/2018 Result Comment: The eGFR is calculated using [...] should be multiplied by the estimated BMI. [facility] CHEM PANEL Creatinine Lvl 1.37 0.50 - 1.40 10/09/2018 [facility] CHEM PANEL BUN 25 7 - 22 10/09/2018 [facility] Gram Stain Report No Wbc'S Or Org anisms Seen 10/08/2018 [facility] Culture: Wound/Abscess w/Gram Stain No Growth 10/08/2018 [facility] TOXICOLOGY Vanco Tr 25.7 10/08/2018 [facility] TOXICOLOGY Vanco Tr TND 1600 10/08/2018 [facility] URINE AND STOOL UA Color Yellow *NA* (10/06/18 11:48 PM) Yellow 10/07/2018 [facility] URINE AND STOOL UA Turbidity Slight *ABN* (10/06/18 11:48 PM) Clear 10/07/2018 [facility] URINE AND STOOL UA Urobilinogen <=1.0 mg/dL 0.1 - 1.0 10/07/2018 [facility] URINE AND STOOL UA Ketones Negative *NA* (10/06/18 11:48 PM) Negative 10/07/2018 [facility] URINE AND STOOL UA Glucose Negative *NA* (10/06/18 11:48 PM) Negative 10/07/2018 [facility] URINE AND STOOL UA Protein 100 mg/dL Negative mg/dL 10/07/2018 [facility] URINE AND STOOL UA Blood Negative (10/06/18 11:48 PM) Negative 10/07/2018 [facility] URINE AND STOOL UA Bili Negative *NA* (10/06/18 11:48 PM) Negative 10/07/2018 [facility] URINE AND STOOL UA Spec Grav 1.020 <=1.030 10/07/2018 [facility] URINE AND STOOL UA pH 5.0 5.0 - 8.0 10/07/2018 [facility] URINE AND STOOL UA RBC 2 0 - 2 10/07/2018 [facility] URINE AND STOOL UA WBC 1 0 - 5 10/07/2018 [facility] URINE AND STOOL UA Sq Epi Occasional /LPF Few /LPF 10/07/2018 [facility] URINE AND STOOL UA Leuk Est Negative (10/06/18 11:48 PM) Negative 10/07/2018 [facility] URINE AND STOOL UA Nitrite Negative (10/06/18 11:48 PM) Negative 10/07/2018 [facility] CARDIAC ENZYMES Troponin-I <0.02 0.00 - 0.40 10/07/2018 [facility] CARDIAC ENZYMES Total CK 45 12 - 191 10/07/2018 [facility] CHEM PANEL Procalcitonin Lvl <0.05 0.00 - 0.10 10/07/2018 [facility] CHEM PANEL Lactic Acid Lvl 1.2 0.5 - 2.2 10/07/2018 [facility] CHEM PANEL A/G Ratio 0.7 0.7 - 1.6 10/07/2018 [facility] CHEM PANEL AGAP 6.4 10.0 - 20.0 10/07/2018 [facility] CHEM PANEL B/C Ratio 16 6 - 25 10/07/2018 [facility] CHEM PANEL Globulin 4.1 2.7 - 4.2 10/07/2018 [facility] CHEM PANEL Bili Total 0.4 0.2 - 1.3 10/07/2018 [facility] CHEM PANEL Albumin Lvl 3.0 3.5 - 5.0 10/07/2018 [facility] CHEM PANEL Total Protein 7.1 6.4 - 8.4 10/07/2018 [facility] CHEM PANEL AST 13 0 - 37 10/07/2018 [facility] CHEM PANEL ALT 23 0 - 65 10/07/2018 [facility] CHEM PANEL Alk Phos 76 39 - 136 10/07/2018 [facility] CHEM PANEL CO2 29 24 - 32 10/07/2018 [facility] CHEM PANEL Chloride Lvl 109 95 - 109 10/07/2018 [facility] CHEM PANEL Calcium Lvl 8.1 8.5 - 10.5 10/07/2018 [facility] CHEM PANEL eGFR 69 10/07/2018 Result Comment: The eGFR is calculated using [...] should be multiplied by the estimated BMI. [facility] CHEM PANEL Glucose Lvl 143 70 - 99 10/07/2018 [facility] CHEM PANEL Potassium Lvl 4.4 3.5 - 5.1 10/07/2018 [facility] CHEM PANEL Sodium Lvl 140 135 - 145 10/07/2018 [facility] CHEM PANEL Creatinine Lvl 1.06 0.50 - 1.40 10/07/2018 [facility] CHEM PANEL BUN 17 7 - 22 10/07/2018 [facility] HEMATOLOGY Microcyte 1+ *ABN* (10/06/18 9:50 PM) None Seen 10/07/2018 [facility] HEMATOLOGY Lymphocytes 10.2 20.0 - 40.0 10/07/2018 [facility] HEMATOLOGY Monocytes 9.9 2.0 - 12.0 10/07/2018 [facility] HEMATOLOGY Neutrophils # 9.2 1.5 - 8.1 10/07/2018 [facility] HEMATOLOGY Lymphocytes # 1.3 1.0 - 5.5 10/07/2018 [facility] HEMATOLOGY Monocytes # 1.3 0.0 - 0.8 10/07/2018 [facility] HEMATOLOGY Segs 73.2 45.0 - 75.0 10/07/2018 [facility] HEMATOLOGY Basophils 0.5 0.0 - 1.0 10/07/2018 [facility] HEMATOLOGY Eosinophils 6.2 0.0 - 4.0 10/07/2018 [facility] HEMATOLOGY Eosinophils # 0.8 0.0 - 0.5 10/07/2018 [facility] HEMATOLOGY Basophils # 0.1 0.0 - 0.2 10/07/2018 [facility] HEMATOLOGY Platelet 251 133 - 450 10/07/2018 [facility] MPV 7.5 7.4 - 10.4 10/07/2018 [facility] MCH 24.7 27.0 - 31.0 10/07/2018 [facility] MCHC 31.8 32.0 - 36.0 10/07/2018 [facility] HEMATOLOGY Hct 33.9 42.0 - 54.0 10/07/2018 [facility] HEMATOLOGY MCV 77.6 80.0 - 94.0 10/07/2018 [facility] RBC 4.37 4.70 - 6.10 10/07/2018 [facility] Hgb 10.8 14.0 - 18.0 10/07/2018 [facility] HEMATOLOGY RDW 18.4 11.5 - 14.5 10/07/2018 [facility] HEMATOLOGY WBC 12.6 3.7 - 10.4 10/07/2018 [facility] HEMATOLOGY INR 1.68 0.85 - 1.17 10/07/2018 [facility] HEMATOLOGY PT 19.4 12.0 - 14.7 10/07/2018 [facility] PTT 56.8 22.9 - 35.8 10/07/2018 [facility] CHEM PANEL Phosphorus 3.7 2.5 - 4.5 09/06/2018 [facility] CHEM PANEL Magnesium Lvl 2.4 1.8 - 2.4 09/06/2018 [facility] CHEM PANEL Globulin 4.5 2.7 - 4.2 09/06/2018 [facility] CHEM PANEL A/G Ratio 0.7 0.7 - 1.6 09/06/2018 [facility] CHEM PANEL B/C Ratio 21 6 - 25 09/06/2018 [facility] CHEM PANEL AGAP 13.4 10.0 - 20.0 09/06/2018 [facility] CHEM PANEL eGFR 54 09/06/2018 Result Comment: The eGFR is calculated [...] should be multiplied by the estimated BMI. [facility] CHEM PANEL Creatinine Lvl 1.31 0.50 - 1.40 09/06/2018 [facility] CHEM PANEL Albumin Lvl 3.2 3.5 - 5.0 09/06/2018 [facility] CHEM PANEL Total Protein 7.7 6.4 - 8.4 09/06/2018 [facility] CHEM PANEL Chloride Lvl 109 95 - 109 09/06/2018 [facility] CHEM PANEL Sodium Lvl 143 135 - 145 09/06/2018 [facility] CHEM PANEL Potassium Lvl 4.4 3.5 - 5.1 09/06/2018 [facility] CHEM PANEL ALT 14 0 - 65 09/06/2018 [facility] CHEM PANEL AST 15 0 - 37 09/06/2018 [facility] CHEM PANEL CO2 25 24 - 32 09/06/2018 [facility] CHEM PANEL Calcium Lvl 8.6 8.5 - 10.5 09/06/2018 [facility] CHEM PANEL Bili Total 0.3 0.2 - 1.3 09/06/2018 [facility] CHEM PANEL Alk Phos 77 39 - 136 09/06/2018 [facility] CHEM PANEL BUN 28 7 - 22 09/06/2018 [facility] CHEM PANEL Glucose Lvl 119 70 - 99 09/06/2018 [facility] ELECTROLYTES AGAP 13.4 10.0 - 20.0 09/06/2018 [facility] ELECTROLYTES B/C Ratio 21 6 - 25 09/06/2018 [facility] ELECTROLYTES Globulin 4.5 2.7 - 4.2 09/06/2018 [facility] ELECTROLYTES A/G Ratio 0.7 0.7 - 1.6 09/06/2018 [facility] ELECTROLYTES Glucose Lvl 119 70 - 99 09/06/2018 [facility] ELECTROLYTES BUN 28 7 - 22 09/06/2018 [facility] ELECTROLYTES Creatinine Lvl 1.3 1 0.50 - 1.40 09/06/2018 [facility] ELECTROLYTES Sodium Lvl 143 135 - 145 09/06/2018 [facility] ELECTROLYTES Potassium Lvl 4.4 3.5 - 5.1 09/06/2018 [facility] ELECTROLYTES Chloride Lvl 109 95 - 109 09/06/2018 [facility] ELECTROLYTES CO2 25 24 - 32 09/06/2018 [facility] ELECTROLYTES Calcium Lvl 8.6 8.5 - 10.5 09/06/2018 [facility] ELECTROLYTES Total Protein 7.7 6.4 - 8.4 09/06/2018 [facility] ELECTROLYTES Albumin Lvl 3.2 3.5 - 5.0 09/06/2018 [facility] ELECTROLYTES ALT 14 0 - 65 09/06/2018 [facility] ELECTROLYTES AST 15 0 - 37 09/06/2018 [facility] ELECTROLYTES Alk Phos 77 39 - 136 09/06/2018 [facility] ELECTROLYTES Bili Total 0.3 0.2 - 1.3 09/06/2018 [facility] ELECTROLYTES eGFR 54 09/06/2018 Result Comment: The eGFR is calculated [...] should be multiplied by the estimated BMI. [facility] HEMATOLOGY Segs 73.1 45.0 - 75.0 09/06/2018 [facility] Lymphocytes 16.0 20.0 - 40.0 09/06/2018 [facility] Monocytes 6.6 2.0 - 12.0 09/06/2018 [facility] HEMATOLOGY Eosinophils 3.3 0.0 - 4.0 09/06/2018 [facility] HEMATOLOGY Basophils 1.0 0.0 - 1.0 09/06/2018 [facility] HEMATOLOGY Neutrophils # 7.8 1.5 - 8.1 09/06/2018 [facility] Lymphocytes # 1.7 1.0 - 5.5 09/06/2018 [facility] Monocytes # 0.7 0.0 - 0.8 09/06/2018 [facility] Eosinophils # 0.3 0.0 - 0.5 09/06/2018 [facility] Basophils # 0.1 0.0 - 0.2 09/06/2018 [facility] Microcyte 1+ *ABN* (09/06/18 5:15 AM) None Seen 09/06/2018 [facility] WBC 10.7 3.7 - 10.4 09/06/2018 [facility] RBC 4.25 4.70 - 6.10 09/06/2018 [facility] Hgb 10.8 14.0 - 18.0 09/06/2018 [facility] Hct 33.0 42.0 - 54.0 09/06/2018 [facility] MCV 77.7 80.0 - 94.0 09/06/2018 [facility] MCH 25.4 27.0 - 31.0 09/06/2018 [facility] MCHC 32.7 32.0 - 36.0 09/06/2018 [facility] RDW 17.4 11.5 - 14.5 09/06/2018 [facility] Platelet 286 133 - 450 09/06/2018 [facility] MPV 7.6 7.4 - 10.4 09/06/2018 [facility] CHEM PANEL Glucose Lvl 102 70 - 99 09/05/2018 [facility] CHEM PANEL BUN 28 7 - 22 09/05/2018 [facility] CHEM PANEL Creatinine Lvl 1.26 0.50 - 1.40 09/05/2018 [facility] CHEM PANEL Sodium Lvl 136 135 - 145 09/05/2018 [facility] CHEM PANEL Potassium Lvl 4.2 3.5 - 5.1 09/05/2018 [facility] CHEM PANEL Chloride Lvl 105 95 - 109 09/05/2018 [facility] CHEM PANEL CO2 27 24 - 32 09/05/2018 [facility] CHEM PANEL Calcium Lvl 8.3 8.5 - 10.5 09/05/2018 [facility] CHEM PANEL Total Protein 7.4 6.4 - 8.4 09/05/2018 [facility] CHEM PANEL Albumin Lvl 3.2 3.5 - 5.0 09/05/2018 [facility] CHEM PANEL ALT 16 0 - 65 09/05/2018 [facility] CHEM PANEL AST 16 0 - 37 09/05/2018 [facility] CHEM PANEL Alk Phos 74 39 - 136 09/05/2018 [facility] CHEM PANEL Bili Total 0.4 0.2 - 1.3 09/05/2018 [facility] CHEM PANEL AGAP 8.2 10.0 - 20.0 09/05/2018 [facility] CHEM PANEL B/C Ratio 22 6 - 25 09/05/2018 [facility] CHEM PANEL Globulin 4.2 2.7 - 4.2 09/05/2018 [facility] CHEM PANEL A/G Ratio 0.8 0.7 - 1.6 09/05/2018 [facility] CHEM PANEL eGFR 56 09/05/2018 Result Comment: The eGFR is calculated [...] should be multiplied by the estimated BMI. [facility] CHEM PANEL Magnesium Lvl 2.5 1.8 - 2.4 09/05/2018 [facility] CHEM PANEL Phosphorus 3.5 2.5 - 4.5 09/05/2018 [facility] HEMATOLOGY Segs 65.0 45.0 - 75.0 09/05/2018 [facility] HEMATOLOGY Lymphocytes 21.0 20.0 - 40.0 09/05/2018 [facility] HEMATOLOGY Monocytes 10.1 2.0 - 12.0 09/05/2018 [facility] HEMATOLOGY Eosinophils 3.2 0.0 - 4.0 09/05/2018 [facility] HEMATOLOGY Basophils 0.7 0.0 - 1.0 09/05/2018 [facility] HEMATOLOGY Neutrophils # 6.3 1.5 - 8.1 09/05/2018 [facility] HEMATOLOGY Lymphocytes # 2.0 1.0 - 5.5 09/05/2018 [facility] HEMATOLOGY Monocytes # 1.0 0.0 - 0.8 09/05/2018 [facility] HEMATOLOGY Eosinophils # 0.3 0.0 - 0.5 09/05/2018 [facility] HEMATOLOGY Basophils # 0.1 0.0 - 0.2 09/05/2018 [facility] HEMATOLOGY Microcyte 1+ *ABN* (09/05/18 6:28 AM) None Seen 09/05/2018 [facility] HEMATOLOGY WBC 9.6 3.7 - 10.4 09/05/2018 [facility] HEMATOLOGY RBC 4.08 4.70 - 6.10 09/05/2018 [facility] HEMATOLOGY Hgb 10.2 14.0 - 18.0 09/05/2018 [facility] HEMATOLOGY Hct 31.6 42.0 - 54.0 09/05/2018 [facility] HEMATOLOGY MCV 77.5 80.0 - 94.0 09/05/2018 [facility] HEMATOLOGY MCH 25.1 27.0 - 31.0 09/05/2018 [facility] HEMATOLOGY MCHC 32.3 32.0 - 36.0 09/05/2018 [facility] HEMATOLOGY RDW 16.9 11.5 - 14.5 09/05/2018 [facility] HEMATOLOGY Platelet 253 133 - 450 09/05/2018 [facility] HEMATOLOGY MPV 7.6 7.4 - 10.4 09/05/2018 [facility] LIPIDS Trig 53 <=149 mg/dL 09/05/2018 [facility] LIPIDS Chol 155 <=199 mg/dL 09/05/2018 [facility] LIPIDS HDL 50 >=61 mg/dL 09/05/2018 [facility] LIPIDS CHD Risk 3.10 4.00 - 7.30 09/05/2018 [facility] LIPIDS LDL (Calculated) 94 <=99 mg/dL 09/05/2018 [facility] LIPIDS VLDL 11 09/05/2018 [facility] SPECIAL CHEMISTRY Hgb A1C 5.5 <=5.6 % 09/05/2018 [facility] CHEM PANEL Lactic Acid Lvl 1.9 0.5 - 2.2 09/05/2018 [facility] CHEM PANEL Glucose Lvl 99 70 - 99 09/04/2018 [facility] CHEM PANEL BUN 32 7 - 22 09/04/2018 [facility] CHEM PANEL Creatinine Lvl 1.38 0.50 - 1.40 09/04/2018 [facility] CHEM PANEL Sodium Lvl 141 135 - 145 09/04/2018 [facility] CHEM PANEL Potassium Lvl 4.6 3.5 - 5.1 09/04/2018 [facility] CHEM PANEL Chloride Lvl 106 95 - 109 09/04/2018 [facility] CHEM PANEL CO2 24 24 - 32 09/04/2018 [facility] CHEM PANEL Calcium Lvl 8.9 8.5 - 10.5 09/04/2018 [facility] CHEM PANEL Total Protein 8.2 6.4 - 8.4 09/04/2018 [facility] CHEM PANEL Albumin Lvl 3.5 3.5 - 5.0 09/04/2018 [facility] CHEM PANEL ALT 7 0 - 65 09/04/2018 [facility] CHEM PANEL AST 17 0 - 37 09/04/2018 [facility] CHEM PANEL Alk Phos 79 39 - 136 09/04/2018 [facility] CHEM PANEL Bili Total 0.4 0.2 - 1.3 09/04/2018 [facility] CHEM PANEL AGAP 15.6 10.0 - 20.0 09/04/2018 [facility] CHEM PANEL B/C Ratio 23 6 - 25 09/04/2018 [facility] CHEM PANEL Globulin 4.7 2.7 - 4.2 09/04/2018 [facility] CHEM PANEL A/G Ratio 0.7 0.7 - 1.6 09/04/2018 [facility] CHEM PANEL eGFR 50 09/04/2018 Result Comment: The eGFR is calculated [...] should be multiplied by the estimated BMI. [facility] HEMATOLOGY WBC 11.0 3.7 - 10.4 09/04/2018 [facility] RBC 4.59 4.70 - 6.10 09/04/2018 [facility] Hgb 11.9 14.0 - 18.0 09/04/2018 [facility] Hct 36.0 42.0 - 54.0 09/04/2018 [facility] MCV 78.4 80.0 - 94.0 09/04/2018 [facility] MCH 25.9 27.0 - 31.0 09/04/2018 [facility] MCHC 33.0 32.0 - 36.0 09/04/2018 [facility] RDW 17.5 11.5 - 14.5 09/04/2018 [facility] Platelet 241 133 - 450 09/04/2018 [facility] MPV 7.5 7.4 - 10.4 09/04/2018 [facility] CHEM PANEL eGFR 48 04/10/2018 Result Comment: The eGFR is calculated using [...] should be multiplied by the estimated BMI. [facility] CHEM PANEL Sodium Lvl 140 135 - 145 04/10/2018 [facility] CHEM PANEL Calcium Lvl 7.9 8.5 - 10.5 04/10/2018 [facility] CHEM PANEL CO2 23 24 - 32 04/10/2018 [facility] CHEM PANEL Potassium Lvl 3.8 3.5 - 5.1 04/10/2018 [facility] CHEM PANEL Chloride Lvl 105 95 - 109 04/10/2018 [facility] CHEM PANEL Creatinine Lvl 1.44 0.50 - 1.40 04/10/2018 [facility] CHEM PANEL BUN 16 7 - 22 04/10/2018 [facility] CHEM PANEL Glucose Lvl 104 70 - 99 04/10/2018 [facility] CHEM PANEL AGAP 15.8 10.0 - 20.0 04/10/2018 [facility] HEMATOLOGY MPV 7.5 7.4 - 10.4 04/10/2018 [facility] HEMATOLOGY Platelet 366 133 - 450 04/10/2018 [facility] HEMATOLOGY RDW 18.4 11.5 - 14.5 04/10/2018 [facility] HEMATOLOGY MCHC 31.0 32.0 - 36.0 04/10/2018 [facility] HEMATOLOGY MCH 24.6 27.0 - 31.0 04/10/2018 [facility] HEMATOLOGY MCV 79.4 80.0 - 94.0 04/10/2018 [facility] HEMATOLOGY Hct 34.0 42.0 - 54.0 04/10/2018 [facility] HEMATOLOGY Hgb 10.5 14.0 - 18.0 04/10/2018 [facility] HEMATOLOGY RBC 4.28 4.70 - 6.10 04/10/2018 [facility] HEMATOLOGY WBC 11.8 3.7 - 10.4 04/10/2018 [facility] HEMATOLOGY Basophils # 0.1 0.0 - 0.2 04/10/2018 [facility] HEMATOLOGY Basophils 0.5 0.0 - 1.0 04/10/2018 [facility] HEMATOLOGY Monocytes 7.6 2.0 - 12.0 04/10/2018 [facility] HEMATOLOGY Eosinophils 4.7 0.0 - 4.0 04/10/2018 [facility] HEMATOLOGY Lymphocytes 11.2 20.0 - 40.0 04/10/2018 [facility] HEMATOLOGY Neutrophils # 8.9 1.5 - 8.1 04/10/2018 [facility] HEMATOLOGY Lymphocytes # 1.3 1.0 - 5.5 04/10/2018 [facility] HEMATOLOGY Segs 76.0 45.0 - 75.0 04/10/2018 [facility] HEMATOLOGY Eosinophils # 0.6 0.0 - 0.5 04/10/2018 [facility] HEMATOLOGY Monocytes # 0.9 0.0 - 0.8 04/10/2018 [facility] TOXICOLOGY Vanco Tr 17.0 04/10/2018 [facility] TOXICOLOGY Vanco Tr TND 04/10/2018 [facility] BLOOD BANK RESULTS Antibody Scrn Negative (04/08/18 12:40 AM) 04/08/2018 [facility] BLOOD BANK RESULTS ABO/Rh A POS 04/08/2018 [facility] ELECTROLYTES AGAP 10.8 10.0 - 20.0 04/08/2018 [facility] ELECTROLYTES eGFR 73 04/08/2018 Result Comment: The eGFR is calculated using [...] should be multiplied by the estimated BMI. [facility] ELECTROLYTES Glucose Lvl 78 70 - 99 04/08/2018 [facility] ELECTROLYTES BUN 11 7 - 22 04/08/2018 [facility] ELECTROLYTES Creatinine Lvl 1.0 2 0.50 - 1.40 04/08/2018 [facility] ELECTROLYTES CO2 29 24 - 32 04/08/2018 [facility] ELECTROLYTES Calcium Lvl 8.4 8.5 - 10.5 04/08/2018 [facility] ELECTROLYTES Potassium Lvl 4.8 3.5 - 5.1 04/08/2018 [facility] ELECTROLYTES Sodium Lvl 141 135 - 145 04/08/2018 [facility] ELECTROLYTES Chloride Lvl 106 95 - 109 04/08/2018 [facility] HEMATOLOGY Lymphocytes # 1.5 1.0 - 5.5 04/08/2018 [facility] HEMATOLOGY Monocytes # 0.7 0.0 - 0.8 04/08/2018 [facility] HEMATOLOGY Eosinophils # 0.4 0.0 - 0.5 04/08/2018 [facility] HEMATOLOGY Microcyte 1+ *ABN* (04/08/18 12:40 AM) None Seen 04/08/2018 [facility] HEMATOLOGY Basophils # 0.1 0.0 - 0.2 04/08/2018 [facility] HEMATOLOGY Lymphocytes 16.9 20.0 - 40.0 04/08/2018 [facility] HEMATOLOGY Monocytes 7.6 2.0 - 12.0 04/08/2018 [facility] HEMATOLOGY Segs 70.4 45.0 - 75.0 04/08/2018 [facility] HEMATOLOGY Neutrophils # 6.5 1.5 - 8.1 04/08/2018 [facility] HEMATOLOGY Eosinophils 3.9 0.0 - 4.0 04/08/2018 [facility] HEMATOLOGY Basophils 1.2 0.0 - 1.0 04/08/2018 [facility] HEMATOLOGY MPV 7.2 7.4 - 10.4 04/08/2018 [facility] HEMATOLOGY MCV 77.2 80.0 - 94.0 04/08/2018 [facility] HEMATOLOGY Hct 34.3 42.0 - 54.0 04/08/2018 [facility] HEMATOLOGY MCH 24.6 27.0 - 31.0 04/08/2018 [facility] HEMATOLOGY RDW 18.4 11.5 - 14.5 04/08/2018 [facility] HEMATOLOGY MCHC 31.8 32.0 - 36.0 04/08/2018 [facility] HEMATOLOGY Platelet 385 133 - 450 04/08/2018 [facility] HEMATOLOGY WBC 9.2 3.7 - 10.4 04/08/2018 [facility] HEMATOLOGY Hgb 10.9 14.0 - 18.0 04/08/2018 [facility] HEMATOLOGY RBC 4.44 4.70 - 6.10 04/08/2018 [facility] HEMATOLOGY INR 1.07 0.85 - 1.17 04/08/2018 [facility] HEMATOLOGY PTT 46.7 22.9 - 35.8 04/08/2018 [facility] HEMATOLOGY PT 13.9 12.0 - 14.7 04/08/2018 [facility] TOXICOLOGY Vanco Tr TND * 04/08/2018 [facility] TOXICOLOGY Vanco Tr 21.5 04/08/2018 [facility] ELECTROLYTES AGAP 16.2 10.0 - 20.0 04/06/2018 [facility] ELECTROLYTES eGFR 53 04/06/2018 Result Comment: The eGFR is calculated using [...] should be multiplied by the estimated BMI. [facility] ELECTROLYTES Potassium Lvl 4.2 3.5 - 5.1 04/06/2018 [facility] ELECTROLYTES Sodium Lvl 143 135 - 145 04/06/2018 [facility] ELECTROLYTES CO2 25 24 - 32 04/06/2018 [facility] ELECTROLYTES Chloride Lvl 106 95 - 109 04/06/2018 [facility] ELECTROLYTES Creatinine Lvl 1.3 2 0.50 - 1.40 04/06/2018 [facility] ELECTROLYTES Calcium Lvl 8.8 8.5 - 10.5 04/06/2018 [facility] ELECTROLYTES BUN 18 7 - 22 04/06/2018 [facility] ELECTROLYTES Glucose Lvl 98 70 - 99 04/06/2018 [facility] HEMATOLOGY MCV 78.8 80.0 - 94.0 04/06/2018 [facility] HEMATOLOGY MCH 25.1 27.0 - 31.0 04/06/2018 [facility] HEMATOLOGY MCHC 31.8 32.0 - 36.0 04/06/2018 [facility] HEMATOLOGY WBC 10.2 3.7 - 10.4 04/06/2018 [facility] HEMATOLOGY Hgb 11.9 14.0 - 18.0 04/06/2018 [facility] HEMATOLOGY Hct 37.3 42.0 - 54.0 04/06/2018 [facility] HEMATOLOGY RBC 4.74 4.70 - 6.10 04/06/2018 [facility] HEMATOLOGY RDW 18.6 11.5 - 14.5 04/06/2018 [facility] HEMATOLOGY Platelet 365 133 - 450 04/06/2018 [facility] HEMATOLOGY MPV 7.8 7.4 - 10.4 04/06/2018 [facility] HEMATOLOGY Lymphocytes # 1.5 1.0 - 5.5 04/06/2018 [facility] HEMATOLOGY Eosinophils # 0.3 0.0 - 0.5 04/06/2018 [facility] HEMATOLOGY Monocytes # 0.8 0.0 - 0.8 04/06/2018 [facility] HEMATOLOGY Segs 74.6 45.0 - 75.0 04/06/2018 [facility] HEMATOLOGY Lymphocytes 14.2 20.0 - 40.0 04/06/2018 [facility] HEMATOLOGY Monocytes 7.7 2.0 - 12.0 04/06/2018 [facility] HEMATOLOGY Eosinophils 2.5 0.0 - 4.0 04/06/2018 [facility] HEMATOLOGY Basophils 1.0 0.0 - 1.0 04/06/2018 [facility] HEMATOLOGY Neutrophils # 7.6 1.5 - 8.1 04/06/2018 [facility] HEMATOLOGY Microcyte 1+ *ABN* (04/06/18 4:36 AM) None Seen 04/06/2018 [facility] HEMATOLOGY Basophils # 0.1 0.0 - 0.2 04/06/2018 [facility] TOXICOLOGY Vanco Tr 20.9 04/06/2018 [facility] TOXICOLOGY Vanco Tr TND 2200 04/06/2018 [facility] MOLECULAR DIAGNOSTIC C difficile DNA Negative (04/05/18 7:24 PM) Negative 04/06/2018 [facility] Gram Stain Report Gram Stain Perf ormed By: [facility] 04/05/2018 [facility] Culture: Aspirate/Body Fluid/Tissue No Growth 04/05/2018 [facility] HEMATOLOGY Microcyte 1+ *ABN* (04/05/18 4:33 AM) None Seen 04/05/2018 [facility] HEMATOLOGY PT 24.8 12.0 - 14.7 04/05/2018 [facility] HEMATOLOGY INR 2.21 0.85 - 1.17 04/05/2018 [facility] HEMATOLOGY PTT 60.2 22.9 - 35.8 04/05/2018 [facility] URINE AND STOOL UA Ketones Negative *NA* (04/04/18 4:50 PM) Negative 04/04/2018 [facility] URINE AND STOOL UA Glucose Negative (04/04/18 4:50 PM) Negative 04/04/2018 [facility] URINE AND STOOL UA Urobilinogen 1.0 0.1 - 1.0 04/04/2018 [facility] URINE AND STOOL UA Blood Negative (04/04/18 4:50 PM) Negative 04/04/2018 [facility] URINE AND STOOL UA Bili Negative *NA* (04/04/18 4:50 PM) Negative 04/04/2018 [facility] URINE AND STOOL UA Nitrite Negative (04/04/18 4:50 PM) Negative 04/04/2018 [facility] URINE AND STOOL UA RBC None Seen (04/04/18 4:50 PM) 0 - 2 04/04/2018 [facility] URINE AND STOOL UA WBC 0-1 04/04/2018 [facility] URINE AND STOOL UA Sq Epi Few /LPF Few /LPF 04/04/2018 [facility] URINE AND STOOL UA Leuk Est Negative (04/04/18 4:50 PM) Negative 04/04/2018 [facility] URINE AND STOOL UA Mucus None Seen (04/04/18 4:50 PM) None Seen 04/04/2018 [facility] URINE AND STOOL UA Bacteria None Seen (04/04/18 4:50 PM) None Seen 04/04/2018 [facility] URINE AND STOOL UA Spec Grav <=1.005 *NA* (04/04/18 4:50 PM) <=1.030 04/04/2018 [facility] URINE AND STOOL UA pH 6.0 5.0 - 8.0 04/04/2018 [facility] URINE AND STOOL UA Turbidity Clear (8/23/18 4:50 PM) Clear 04/04/2018 [facility] URINE AND STOOL UA Protein Negative (04/04/18 4:50 PM) Negative 04/04/2018 [facility] URINE AND STOOL UA Color Yellow *NA* (04/04/18 4:50 PM) Yellow 04/04/2018 [facility] CHEM PANEL Albumin Lvl 2.9 3.5 - 5.0 04/04/2018 [facility] CHEM PANEL Total Protein 8.3 6.4 - 8.4 04/04/2018 [facility] CHEM PANEL AST 22 0 - 37 04/04/2018 [facility] CHEM PANEL ALT 10 0 - 65 04/04/2018 [facility] CHEM PANEL Bili Total 0.4 0.2 - 1.3 04/04/2018 [facility] CHEM PANEL Alk Phos 63 39 - 136 04/04/2018 [facility] CHEM PANEL A/G Ratio 0.5 0.7 - 1.6 04/04/2018 [facility] CHEM PANEL Globulin 5.4 2.7 - 4.2 04/04/2018 [facility] CHEM PANEL B/C Ratio 15 6 - 25 04/04/2018 [facility] CHEM PANEL Lactic Acid Lvl 1.9 0.5 - 2.2 04/04/2018 [facility] CHEM PANEL Procalcitonin Lvl <0.05 ng/mL 0.00 - 0.10 04/04/2018 [facility] HEMATOLOGY PT 27.5 12.0 - 14.7 04/04/2018 [facility] HEMATOLOGY INR 2.52 0.85 - 1.17 04/04/2018 [facility] HEMATOLOGY PTT 74.4 22.9 - 35.8 04/04/2018 [facility] CHEM PANEL Ammonia 38.0 <=45.0 uMol/L 08/14/2017 [facility] ELECTROLYTES CO2 28 24 - 32 08/14/2017 [facility] ELECTROLYTES Potassium Lvl 4.5 3.5 - 5.1 08/14/2017 [facility] ELECTROLYTES Chloride Lvl 103 95 - 109 08/14/2017 [facility] ELECTROLYTES BUN 18 7 - 22 08/14/2017 [facility] ELECTROLYTES Glucose Lvl 160 70 - 99 08/14/2017 [facility] ELECTROLYTES Calcium Lvl 8.3 8.5 - 10.5 08/14/2017 [facility] ELECTROLYTES eGFR 63 08/14/2017 Result Comment: The eGFR is calculated [...] should be multiplied by the estimated BMI. [facility] ELECTROLYTES Sodium Lvl 139 135 - 145 08/14/2017 [facility] ELECTROLYTES Creatinine Lvl 1.1 5 0.50 - 1.40 08/14/2017 [facility] ELECTROLYTES AGAP 12.5 10.0 - 20.0 08/14/2017 [facility] HEMATOLOGY Basophils # 0.1 0.0 - 0.2 08/14/2017 [facility] HEMATOLOGY Eosinophils # 0.1 0.0 - 0.5 08/14/2017 [facility] HEMATOLOGY Segs 77.6 45.0 - 75.0 08/14/2017 [facility] HEMATOLOGY Segs-Bands # 8.7 1.5 - 8.1 08/14/2017 [facility] HEMATOLOGY Monocytes # 0.7 0.0 - 0.8 08/14/2017 [facility] HEMATOLOGY Lymphocytes # 1.6 1.0 - 5.5 08/14/2017 [facility] HEMATOLOGY Lymphocytes 14.3 20.0 - 40.0 08/14/2017 [facility] HEMATOLOGY Monocytes 6.4 2.0 - 12.0 08/14/2017 [facility] HEMATOLOGY Eosinophils 1.1 0.0 - 4.0 08/14/2017 [facility] HEMATOLOGY Basophils 0.6 0.0 - 1.0 08/14/2017 [facility] HEMATOLOGY Hct 39.6 42.0 - 54.0 08/14/2017 [facility] HEMATOLOGY MCH 26.2 27.0 - 31.0 08/14/2017 [facility] HEMATOLOGY MCV 79.6 80.0 - 94.0 08/14/2017 [facility] HEMATOLOGY RDW 18.8 11.5 - 14.5 08/14/2017 [facility] HEMATOLOGY MCHC 32.9 32.0 - 36.0 08/14/2017 [facility] HEMATOLOGY Platelet 252 133 - 450 08/14/2017 [facility] HEMATOLOGY MPV 8.2 7.4 - 10.4 08/14/2017 [facility] HEMATOLOGY WBC 11.1 3.7 - 10.4 08/14/2017 [facility] HEMATOLOGY RBC 4.97 4.70 - 6.10 08/14/2017 [facility] HEMATOLOGY Hgb 13.0 14.0 - 18.0 08/14/2017 [facility] CHEM PANEL Lactic Acid Lvl 1.4 0.5 - 2.2 08/13/2017 [facility] DRUG SCREEN U Cannab Scr Nega tive *NA* (08/13/17 10:15 AM) Negative 08/13/2017 [facility] DRUG SCREEN UDS Note See Note (08/13/17 10:15 AM) 08/13/2017 [facility] DRUG SCREEN U Phencyc Scr Nega tive *NA* (08/13/17 10:15 AM) Negative 08/13/2017 [facility] DRUG SCREEN U Benzodia Scr Posi tive *ABN* (08/13/17 10:15 AM) Negative 08/13/2017 [facility] DRUG SCREEN U Opiate Scr Nega tive *NA* (08/13/17 10:15 AM) Negative 08/13/2017 [facility] DRUG SCREEN U Cocaine Scr Nega tive *NA* (08/13/17 10:15 AM) Negative 08/13/2017 [facility] DRUG SCREEN U Rhonda Scr Nega tive *NA* (08/13/17 10:15 AM) Negative 08/13/2017 [facility] DRUG SCREEN U Amph Scr Nega tive *NA* (08/13/17 10:15 AM) Negative 08/13/2017 [facility] URINE AND STOOL UA Sq Epi None Seen (08/13/17 10:15 AM) Few 08/13/2017 [facility] URINE AND STOOL UA RBC None Seen (08/13/17 10:15 AM) 0 - 2 08/13/2017 [facility] URINE AND STOOL UA WBC None Seen (08/13/17 10:15 AM) None Seen 08/13/2017 [facility] URINE AND STOOL UA Bacteria None Seen (08/13/17 10:15 AM) None Seen 08/13/2017 [facility] URINE AND STOOL UA Urobilinogen 0.2 0.1 - 1.0 08/13/2017 [facility] URINE AND STOOL UA Bili Negative *NA* (08/13/17 10:15 AM) Negative 08/13/2017 [facility] URINE AND STOOL UA Blood Negative (08/13/17 10:15 AM) Negative 08/13/2017 [facility] URINE AND STOOL UA Nitrite Negative (08/13/17 10:15 AM) Negative 08/13/2017 [facility] URINE AND STOOL UA Leuk Est Negative (08/13/17 10:15 AM) Negative 08/13/2017 [facility] URINE AND STOOL UA Spec Grav 1.020 <=1.030 08/13/2017 [facility] URINE AND STOOL UA Turbidity Clear (08/13/17 10:15 AM) Clear 08/13/2017 [facility] URINE AND STOOL UA Color Yellow *NA* (08/13/17 10:15 AM) Yellow 08/13/2017 [facility] URINE AND STOOL UA Ketones Negative mg/dL Negative mg/dL 08/13/2017 [facility] URINE AND STOOL UA Glucose Negative mg/dL Negative mg/dL 08/13/2017 [facility] URINE AND STOOL UA Protein Negative mg/dL Negative mg/dL 08/13/2017 [facility] URINE AND STOOL UA pH 6.0 5.0 - 8.0 08/13/2017 [facility] BLOOD BANK RESULTS ABO/Rh A POS 08/13/2017 [facility] BLOOD BANK RESULTS Antibody Scrn Negative (08/13/17 5:20 AM) 08/13/2017 [facility] CHEM PANEL Lactic Acid Lvl 2.2 0.5 - 2.2 08/13/2017 [facility] ELECTROLYTES AGAP 14.3 10.0 - 20.0 08/13/2017 [facility] ELECTROLYTES eGFR 61 08/13/2017 Result Comment: The eGFR is calculated [...] should be multiplied by the estimated BMI. [facility] ELECTROLYTES Calcium Lvl 8.9 8.5 - 10.5 08/13/2017 [facility] ELECTROLYTES Chloride Lvl 105 95 - 109 08/13/2017 [facility] ELECTROLYTES CO2 25 24 - 32 08/13/2017 [facility] ELECTROLYTES Creatinine Lvl 1.1 9 0.50 - 1.40 08/13/2017 [facility] ELECTROLYTES BUN 21 7 - 22 08/13/2017 [facility] ELECTROLYTES Glucose Lvl 134 70 - 99 08/13/2017 [facility] ELECTROLYTES Potassium Lvl 4.3 3.5 - 5.1 08/13/2017 [facility] ELECTROLYTES Sodium Lvl 140 135 - 145 08/13/2017 [facility] HEMATOLOGY Segs 81.5 45.0 - 75.0 08/13/2017 [facility] HEMATOLOGY Monocytes 6.6 2.0 - 12.0 08/13/2017 [facility] HEMATOLOGY Lymphocytes 10.8 20.0 - 40.0 08/13/2017 [facility] HEMATOLOGY Segs-Bands # 13.2 1.5 - 8.1 08/13/2017 [facility] HEMATOLOGY Basophils 0.5 0.0 - 1.0 08/13/2017 [facility] HEMATOLOGY Eosinophils 0.6 0.0 - 4.0 08/13/2017 [facility] HEMATOLOGY Monocytes # 1.1 0.0 - 0.8 08/13/2017 [facility] HEMATOLOGY Eosinophils # 0.1 0.0 - 0.5 08/13/2017 [facility] HEMATOLOGY Lymphocytes # 1.8 1.0 - 5.5 08/13/2017 [facility] HEMATOLOGY Basophils # 0.1 0.0 - 0.2 08/13/2017 [facility] HEMATOLOGY Microcyte 1+ *ABN* (08/13/17 5:18 AM) None Seen 08/13/2017 [facility] HEMATOLOGY Max Amplitude Rapid 73 52 - 71 08/13/2017 [facility] HEMATOLOGY G-value Rapid 13.5 5.0 - 11.6 08/13/2017 [facility] [facility] Estimated % Lysis Rapid 0 .9 0.0 - 7.5 08/13/2017 [facility] Angle Rapid 80 64 - 80 08/13/2017 [facility]EM[facility] R-time Rapid 0.8 0.4 - 0.7 08/13/2017 [facility] K-time Rapid 0.8 0.6 - 2.3 08/13/2017 [facility] HEM[facility] ACT (TEG) Rapid 121 86 - 118 08/13/2017 [facility] HEMAT[facility]Y Split Point Rapid 0.6 08/13/2017 [facility]EM[facility] MCV 77.8 80.0 - 94.0 08/13/2017 [facility]EM[facility] Hct 44.0 42.0 - 54.0 08/13/2017 [facility]EMAT[facility] WBC 16.3 3.7 - 10.4 08/13/2017 [facility]EM[facility] RBC 5.66 4.70 - 6.10 08/13/2017 [facility]EMAT[facility] Hgb 13.7 14.0 - 18.0 08/13/2017 [facility] HEMAT[facility]Y MPV 7.7 7.4 - 10.4 08/13/2017 [facility] HEMAT[facility]Y Platelet 293 133 - 450 08/13/2017 [facility] HEMATOLOGY RDW 18.6 11.5 - 14.5 08/13/2017 [facility] HEMAT[facility]Y MCHC 31.2 32.0 - 36.0 08/13/2017 [facility] HEMATOLOGY MCH 24.3 27.0 - 31.0 08/13/2017 [facility] TOXICOLOGY Ethanol Lvl 73 08/13/2017 [facility] TOXICOLOGY Etoh (%) 0.073 08/13/2017 [facility] ELECTROLYTES AGAP 12.4 10.0 - 20.0 10/09/2016 [facility] ELECTROLYTES eGFR 84 10/09/2016 Result Comment: The eGFR is calculated [...] should be multiplied by the estimated BMI. [facility] ELECTROLYTES Calcium Lvl 8.9 8.5 - 10.5 10/09/2016 [facility] ELECTROLYTES CO2 25 24 - 32 10/09/2016 [facility] ELECTROLYTES Chloride Lvl 102 95 - 109 10/09/2016 [facility] ELECTROLYTES Potassium Lvl 4.4 3.5 - 5.1 10/09/2016 [facility] ELECTROLYTES Sodium Lvl 135 135 - 145 10/09/2016 [facility] ELECTROLYTES Creatinine Lvl 0.9 1 0.50 - 1.40 10/09/2016 [facility] ELECTROLYTES BUN 25 7 - 22 10/09/2016 [facility] ELECTROLYTES Glucose Lvl 113 70 - 99 10/09/2016 [facility]EM[facility] RBC 4.08 4.70 - 6.10 10/09/2016 [facility] HEMAT[facility] WBC 8.5 3.7 - 10.4 10/09/2016 [facility]EMAT[facility] Hct 36.6 42.0 - 54.0 10/09/2016 [facility] HEMAT[facility]Y Hgb 12.3 14.0 - 18.0 10/09/2016 [facility] HEMAT[facility]Y MCV 89.7 80.0 - 94.0 10/09/2016 [facility] HEMATOLOGY MCH 30.1 27.0 - 31.0 10/09/2016 [facility] HEMATOLOGY RDW 16.0 11.5 - 14.5 10/09/2016 [facility] HEMATOLOG[facility] MCHC 33.5 32.0 - 36.0 10/09/2016 [facility] HEMATOLOGY MPV 8.6 7.4 - 10.4 10/09/2016 [facility] HEMATOLOGY Platelet 153 133 - 450 10/09/2016 [facility] CHEM PANEL eGFR 63 10/08/2016 Result Comment: The eGFR is calculated [...] should be multiplied by the estimated BMI. [facility] CHEM PANEL Chloride Lvl 99 95 - 109 10/08/2016 [facility] CHEM PANEL Potassium Lvl 4.0 3.5 - 5.1 10/08/2016 [facility] CHEM PANEL AGAP 13.0 10.0 - 20.0 10/08/2016 [facility] CHEM PANEL CO2 25 24 - 32 10/08/2016 [facility] CHEM PANEL Calcium Lvl 8.2 8.5 - 10.5 10/08/2016 [facility] CHEM PANEL Glucose Lvl 115 70 - 99 10/08/2016 [facility] CHEM PANEL BUN 36 7 - 22 10/08/2016 [facility] CHEM PANEL Sodium Lvl 133 135 - 145 10/08/2016 [facility] CHEM PANEL Creatinine Lvl 1.16 0.50 - 1.40 10/08/2016 [facility]EMAT[facility] Segs 80.4 45.0 - 75.0 10/08/2016 [facility]EMAT[facility]Y Lymphocytes 10.3 20.0 - 40.0 10/08/2016 [facility]EMAT[facility] Eosinophils # 0.2 0.0 - 0.5 10/08/2016 [facility]EMAT[facility] Monocytes # 0.6 0.0 - 0.8 10/08/2016 [facility]EMAT[facility]Y Lymphocytes # 1.0 1.0 - 5.5 10/08/2016 [facility] HEMATOLOGY Segs-Bands # 7.4 1.5 - 8.1 10/08/2016 [facility]EMAT[facility] Basophils 0.3 0.0 - 1.0 10/08/2016 [facility]EMAT[facility] Eosinophils 2.7 0.0 - 4.0 10/08/2016 [facility] HEMAT[facility]Y Monocytes 6.3 2.0 - 12.0 10/08/2016 [facility] HEMATOLOGY MPV 8.4 7.4 - 10.4 10/08/2016 [facility] HEMAT[facility] Platelet 120 133 - 450 10/08/2016 [facility] HEMATOLOGY RDW 16.2 11.5 - 14.5 10/08/2016 [facility]EMAT[facility] MCHC 33.1 32.0 - 36.0 10/08/2016 [facility] HEMAT[facility] MCH 29.9 27.0 - 31.0 10/08/2016 [facility] HEMAT[facility]Y MCV 90.4 80.0 - 94.0 10/08/2016 [facility]EMAT[facility] Hgb 12.2 14.0 - 18.0 10/08/2016 [facility] HEMAT[facility] Hct 36.8 42.0 - 54.0 10/08/2016 [facility]EMAT[facility] WBC 9.2 3.7 - 10.4 10/08/2016 [facility]EM[facility] RBC 4.07 4.70 - 6.10 10/08/2016 [facility] HEMAT[facility] MPV 8.8 7.4 - 10.4 10/07/2016 [facility]EMAT[facility] Platelet 153 133 - 450 10/07/2016 [facility]EMAT[facility] MCH 29.1 27.0 - 31.0 10/07/2016 [facility] HEMAT[facility]Y MCV 91.1 80.0 - 94.0 10/07/2016 [facility] HEMAT[facility] WBC 12.9 3.7 - 10.4 10/07/2016 [facility] HEMATOLOGY RDW 16.2 11.5 - 14.5 10/07/2016 [facility]EMAT[facility] MCHC 32.0 32.0 - 36.0 10/07/2016 [facility]EMAT[facility] RBC 4.07 4.70 - 6.10 10/07/2016 [facility] HEMATOLOGY Hct 37.0 42.0 - 54.0 10/07/2016 [facility] HEMATOLOGY Hgb 11.8 14.0 - 18.0 10/07/2016 [facility] ELECTROLYTES AGAP 11.5 10.0 - 20.0 10/07/2016 [facility] ELECTROLYTES eGFR 44 10/07/2016 Result Comment: The eGFR is calculated [...] should be multiplied by the estimated BMI. [facility] ELECTROLYTES Calcium Lvl 8.1 8.5 - 10.5 10/07/2016 [facility] ELECTROLYTES CO2 26 24 - 32 10/07/2016 [facility] ELECTROLYTES Chloride Lvl 102 95 - 109 10/07/2016 [facility] ELECTROLYTES Sodium Lvl 135 135 - 145 10/07/2016 [facility] ELECTROLYTES Potassium Lvl 4.5 3.5 - 5.1 10/07/2016 [facility] ELECTROLYTES Creatinine Lvl 1.5 5 0.50 - 1.40 10/07/2016 [facility] ELECTROLYTES BUN 37 7 - 22 10/07/2016 [facility] ELECTROLYTES Glucose Lvl 144 70 - 99 10/07/2016 [facility]EMAT[facility] Eosinophils 2.3 0.0 - 4.0 10/07/2016 [facility]EM[facility] Basophils 0.4 0.0 - 1.0 10/07/2016 [facility] HEMAT[facility] Segs-Bands # 10.4 1.5 - 8.1 10/07/2016 [facility]EM[facility] Monocytes # 1.0 0.0 - 0.8 10/07/2016 [facility]EMAT[facility] Eosinophils # 0.3 0.0 - 0.5 10/07/2016 [facility]EM[facility] Lymphocytes # 1.3 1.0 - 5.5 10/07/2016 [facility]EMAT[facility] Lymphocytes 9.9 20.0 - 40.0 10/07/2016 [facility]EM[facility] Monocytes 8.0 2.0 - 12.0 10/07/2016 [facility] HEMAT[facility] Segs 79.4 45.0 - 75.0 10/07/2016 [facility]EM[facility] Lymphocytes # 0.8 1.0 - 5.5 10/06/2016 [facility]EMAT[facility] Monocytes # 1.2 0.0 - 0.8 10/06/2016 [facility]EMAT[facility] Monocytes 8.7 2.0 - 12.0 10/06/2016 [facility]EMAT[facility] Lymphocytes 6.0 20.0 - 40.0 10/06/2016 [facility] HEMATOLOGY Segs-Bands # 12.1 1.5 - 8.1 10/06/2016 [facility]EMAT[facility] Basophils 0.1 0.0 - 1.0 10/06/2016 [facility] HEMATOLOGY Segs 85.2 45.0 - 75.0 10/06/2016 [facility] CHEM PANEL B/C Ratio 20 6 - 25 10/05/2016 [facility] CHEM PANEL A/G Ratio 0.9 0.7 - 1.6 10/05/2016 [facility] CHEM PANEL Globulin 3.9 2.7 - 4.2 10/05/2016 [facility] CHEM PANEL Total Protein 7.6 6.4 - 8.4 10/05/2016 [facility] CHEM PANEL Albumin Lvl 3.7 3.5 - 5.0 10/05/2016 [facility] CHEM PANEL ALT 28 0 - 65 10/05/2016 [facility] CHEM PANEL AST 18 0 - 37 10/05/2016 [facility] CHEM PANEL Alk Phos 59 39 - 136 10/05/2016 [facility] CHEM PANEL Bili Total 0.4 0.2 - 1.3 10/05/2016 [facility] HEMATOLOGY INR 1.05 0.85 - 1.17 10/05/2016 [facility] HEMAT[facility] PTT 27.8 22.9 - 35.8 10/05/2016 [facility]EM[facility] PT 13.9 12.0 - 14.7 10/05/2016 [facility] HEMATOLOGY TEG Interp Throm belastograph results show shortened value of R. This finding is suggestive of enzymatic hypercoagulation. CPT:10180 10/05/2016 [facility] HEMATOLOGY G-value 6.1 4.5 - 11.0 10/05/2016 [facility] HEMAT[facility] Ly30 5.6 0.0 - 7.5 10/05/2016 [facility] HEMATOLOGY Max Amp 54.9 50.0 - 70.0 10/05/2016 [facility] HEMATOLOGY Coag Index 1.4 -3.0-3.0 - 3.0 10/05/2016 [facility] HEMATOLOGY TEG Data See N ote (10/05/16 6:47 AM) 10/05/2016 [facility] HEMAT[facility] Angle 69.9 53.0 - 72.0 10/05/2016 [facility]EM[facility] R-time 3.4 5.0 - 10.0 10/05/2016 [facility]EM[facility] K-time 1.5 1.0 - 3.0 10/05/2016 [facility] HEMAT[facility]Y TEG Interp Throm belastograph results show prolonged value of R. This finding is suggestive of factor deficiency, or anticoagulants. In addition the MA is low which is suggestive of thrombocytopenia. The Ly30 is markedly high which is seen with fibrinolysis. Comment: The patient has prolonged PT and PTT values but does not have thrombocytopenia. Recommend repeat TEG with correlation with DIC screen, if clinically indicated. CPT:95151 09/27/2016 [facility] G-value 3.0 4.5 - 11.0 09/27/2016 [facility] HEMATOLOGY Angle 55.6 53.0 - 72.0 09/27/2016 [facility] HEMATOLOG[facility] Max Amp 37.7 50.0 - 70.0 09/27/2016 [facility] HEMAT[facility] K-time 2.8 1.0 - 3.0 09/27/2016 [facility] HEMAT[facility]Y R-time 10.2 5.0 - 10.0 09/27/2016 [facility] HEMATOLOGY Ly30 28.9 0.0 - 7.5 09/27/2016 [facility] HEMATOLOGY Coag Index -6.6 -3.0-3.0 - 3.0 09/27/2016 [facility] HEMATOLOGY TEG Data See N ote (09/27/16 3:25 PM) 09/27/2016 [facility] CHEM PANEL Globulin 4.0 2.7 - 4.2 09/27/2016 [facility] CHEM PANEL B/C Ratio 16 6 - 25 09/27/2016 [facility] CHEM PANEL A/G Ratio 1.1 0.7 - 1.6 09/27/2016 [facility] CHEM PANEL Total Protein 8.5 6.4 - 8.4 09/27/2016 [facility] CHEM PANEL ALT 42 0 - 65 09/27/2016 [facility] CHEM PANEL Albumin Lvl 4.5 3.5 - 5.0 09/27/2016 [facility] CHEM PANEL Bili Total 0.6 0.2 - 1.3 09/27/2016 [facility] CHEM PANEL Alk Phos 72 39 - 136 09/27/2016 [facility] CHEM PANEL AST 28 0 - 37 09/27/2016 [facility] HEMATOLOGY INR 2.36 0.85 - 1.17 09/27/2016 [facility] HEMATOLOGY PTT 42.1 22.9 - 35.8 09/27/2016 [facility] HEMATOLOGY PT 26.2 12.0 - 14.7 09/27/2016 [facility] HEMATOLOGY Basophils # 0.1 0.0 - 0.2 09/27/2016 [facility] HEMATOLOGY Eosinophils # 0.3 0.0 - 0.5 09/27/2016 [facility] HEMATOLOGY Eosinophils 3.2 0.0 - 4.0 09/27/2016 [facility] CHEM PANEL Magnesium Lvl 2.0 1.8 - 2.4 09/12/2016 [facility] CHEM PANEL eGFR 91 09/12/2016 Result Comment: The eGFR is calculated [...] should be multiplied by the estimated BMI. [facility] CHEM PANEL Sodium Lvl 137 135 - 145 09/12/2016 [facility] CHEM PANEL Creatinine Lvl 0.78 0.50 - 1.40 09/12/2016 [facility] CHEM PANEL BUN 8 7 - 22 09/12/2016 [facility] CHEM PANEL Glucose Lvl 60 70 - 99 09/12/2016 [facility] CHEM PANEL AGAP 14.9 10.0 - 20.0 09/12/2016 [facility] CHEM PANEL Calcium Lvl 8.4 8.5 - 10.5 09/12/2016 [facility] CHEM PANEL Potassium Lvl 3.9 3.5 - 5.1 09/12/2016 [facility] CHEM PANEL CO2 25 24 - 32 09/12/2016 [facility] CHEM PANEL Chloride Lvl 101 95 - 109 09/12/2016 [facility] CHEM PANEL Phosphorus 2.8 2.5 - 4.5 09/10/2016 [facility] CHEM PANEL Magnesium Lvl 1.7 1.8 - 2.4 09/10/2016 [facility] ELECTROLYTES Sodium Lvl 141 135 - 145 09/10/2016 [facility] ELECTROLYTES BUN 11 7 - 22 09/10/2016 [facility] ELECTROLYTES Creatinine Lvl 0.7 7 0.50 - 1.40 09/10/2016 [facility] ELECTROLYTES Glucose Lvl 60 70 - 99 09/10/2016 [facility] ELECTROLYTES eGFR 91 09/10/2016 Result Comment: The eGFR is calculated [...] should be multiplied by the estimated BMI. [facility] ELECTROLYTES CO2 24 24 - 32 09/10/2016 [facility] ELECTROLYTES Calcium Lvl 7.9 8.5 - 10.5 09/10/2016 [facility] ELECTROLYTES Potassium Lvl 4.3 3.5 - 5.1 09/10/2016 [facility] ELECTROLYTES Chloride Lvl 107 95 - 109 09/10/2016 [facility] ELECTROLYTES AGAP 14.3 10.0 - 20.0 09/10/2016 [facility] HEMATOLOGY Hct 44.5 42.0 - 54.0 09/10/2016 [facility] HEMATOLOGY Hgb 15.0 14.0 - 18.0 09/10/2016 [facility] HEMATOLOGY RBC 4.99 4.70 - 6.10 09/10/2016 [facility] HEMATOLOGY MCH 30.0 27.0 - 31.0 09/10/2016 [facility] HEMATOLOGY MCV 89.0 80.0 - 94.0 09/10/2016 [facility] HEMATOLOGY Platelet 162 133 - 450 09/10/2016 [facility] HEMATOLOGY RDW 14.3 11.5 - 14.5 09/10/2016 [facility] HEMATOLOGY MCHC 33.7 32.0 - 36.0 09/10/2016 [facility] HEMATOLOGY MPV 8.6 7.4 - 10.4 09/10/2016 [facility] HEMATOLOGY WBC 9.0 3.7 - 10.4 09/10/2016 [facility] HEMATOLOGY Basophils # 0.1 0.0 - 0.2 09/10/2016 [facility] HEMATOLOGY Eosinophils # 0.5 0.0 - 0.5 09/10/2016 [facility] HEMATOLOGY Eosinophils 5.2 0.0 - 4.0 09/10/2016 [facility] HEMATOLOGY Monocytes 9.6 2.0 - 12.0 09/10/2016 [facility] HEMATOLOGY Lymphocytes 18.6 20.0 - 40.0 09/10/2016 [facility] HEMATOLOGY Segs 66.0 45.0 - 75.0 09/10/2016 [facility] HEMATOLOGY Monocytes # 0.9 0.0 - 0.8 09/10/2016 [facility] HEMATOLOGY Lymphocytes # 1.7 1.0 - 5.5 09/10/2016 [facility] HEMATOLOGY Segs-Bands # 5.9 1.5 - 8.1 09/10/2016 [facility] HEMATOLOGY Basophils 0.6 0.0 - 1.0 09/10/2016 [facility] PARATHYROID PROFILE Ca Norm WB 1.09 1.05 - 1.25 09/10/2016 [facility] PARATHYROID PROFILE Ca Ion WB 1.12 1.05 - 1.25 09/10/2016 [facility] CHEM PANEL A/G Ratio 0.8 0.7 - 1.6 09/09/2016 [facility] CHEM PANEL Globulin 3.2 2.7 - 4.2 09/09/2016 [facility] CHEM PANEL AGAP 13.0 10.0 - 20.0 09/09/2016 [facility] CHEM PANEL B/C Ratio 16 6 - 25 09/09/2016 [facility] CHEM PANEL eGFR 90 09/09/2016 Result Comment: The eGFR is calculated [...] should be multiplied by the estimated BMI. [facility] CHEM PANEL Sodium Lvl 140 135 - 145 09/09/2016 [facility] CHEM PANEL Potassium Lvl 4.0 3.5 - 5.1 09/09/2016 [facility] CHEM PANEL ALT 19 0 - 65 09/09/2016 [facility] CHEM PANEL Creatinine Lvl 0.79 0.50 - 1.40 09/09/2016 [facility] CHEM PANEL Glucose Lvl 65 70 - 99 09/09/2016 [facility] CHEM PANEL Chloride Lvl 105 95 - 109 09/09/2016 [facility] CHEM PANEL BUN 13 7 - 22 09/09/2016 [facility] CHEM PANEL Bili Total 0.9 0.2 - 1.3 09/09/2016 [facility] CHEM PANEL AST 16 0 - 37 09/09/2016 [facility] CHEM PANEL Alk Phos 45 39 - 136 09/09/2016 [facility] CHEM PANEL Calcium Lvl 8.2 8.5 - 10.5 09/09/2016 [facility] CHEM PANEL Total Protein 5.9 6.4 - 8.4 09/09/2016 [facility] CHEM PANEL Albumin Lvl 2.7 3.5 - 5.0 09/09/2016 [facility] CHEM PANEL CO2 26 24 - 32 09/09/2016 [facility] HEMATOLOGY Hct 44.6 42.0 - 54.0 09/09/2016 [facility] HEMATOLOGY MCV 90.2 80.0 - 94.0 09/09/2016 [facility] HEMATOLOGY MCH 29.4 27.0 - 31.0 09/09/2016 [facility] HEMATOLOGY MCHC 32.6 32.0 - 36.0 09/09/2016 [facility] HEMATOLOGY MPV 8.9 7.4 - 10.4 09/09/2016 [facility] HEMATOLOGY RDW 14.4 11.5 - 14.5 09/09/2016 [facility] HEMATOLOGY Platelet 160 133 - 450 09/09/2016 [facility] HEMATOLOGY WBC 8.9 3.7 - 10.4 09/09/2016 [facility] HEMATOLOGY RBC 4.94 4.70 - 6.10 09/09/2016 [facility] HEMATOLOGY Hgb 14.5 14.0 - 18.0 09/09/2016 [facility] HEMATOLOGY Monocytes # 0.8 0.0 - 0.8 09/09/2016 [facility] HEMATOLOGY Eosinophils # 0.5 0.0 - 0.5 09/09/2016 [facility] HEMATOLOGY Basophils # 0.1 0.0 - 0.2 09/09/2016 [facility] HEMATOLOGY Monocytes 8.8 2.0 - 12.0 09/09/2016 [facility] HEMATOLOGY Lymphocytes 17.1 20.0 - 40.0 09/09/2016 [facility] HEMATOLOGY Segs 68.0 45.0 - 75.0 09/09/2016 [facility] HEMATOLOGY Lymphocytes # 1.5 1.0 - 5.5 09/09/2016 [facility] HEMATOLOGY Segs-Bands # 6.0 1.5 - 8.1 09/09/2016 [facility] HEMATOLOGY Basophils 0.7 0.0 - 1.0 09/09/2016 [facility] HEMATOLOGY Eosinophils 5.4 0.0 - 4.0 09/09/2016 [facility] CHEM PANEL Phosphorus 2.3 2.5 - 4.5 09/08/2016 [facility] CHEM PANEL Magnesium Lvl 1.7 1.8 - 2.4 09/08/2016 [facility] CHEM PANEL A/G Ratio 0.9 0.7 - 1.6 09/08/2016 [facility] CHEM PANEL Globulin 3.5 2.7 - 4.2 09/08/2016 [facility] CHEM PANEL B/C Ratio 16 6 - 25 09/08/2016 [facility] CHEM PANEL Total Protein 6.5 6.4 - 8.4 09/08/2016 [facility] CHEM PANEL Albumin Lvl 3.0 3.5 - 5.0 09/08/2016 [facility] CHEM PANEL Bili Total 1.2 0.2 - 1.3 09/08/2016 [facility] CHEM PANEL Alk Phos 55 39 - 136 09/08/2016 [facility] CHEM PANEL ALT 27 0 - 65 09/08/2016 [facility] CHEM PANEL AST 19 0 - 37 09/08/2016 [facility] HEMATOLOGY Monocytes # 1.0 0.0 - 0.8 09/08/2016 [facility] HEMATOLOGY Eosinophils # 0.4 0.0 - 0.5 09/08/2016 [facility] HEMATOLOGY Segs-Bands # 8.9 1.5 - 8.1 09/08/2016 [facility] HEMATOLOGY Basophils 0.3 0.0 - 1.0 09/08/2016 [facility] HEMATOLOGY Lymphocytes # 1.1 1.0 - 5.5 09/08/2016 [facility] HEMATOLOGY Eosinophils 3.2 0.0 - 4.0 09/08/2016 [facility] HEMATOLOGY Lymphocytes 9.6 20.0 - 40.0 09/08/2016 [facility] HEMATOLOGY Segs 78.1 45.0 - 75.0 09/08/2016 [facility] HEMATOLOGY Monocytes 8.8 2.0 - 12.0 09/08/2016 [facility] HEMATOLOGY Platelet 168 133 - 450 09/08/2016 [facility] HEMATOLOGY MPV 8.8 7.4 - 10.4 09/08/2016 [facility] HEMATOLOGY RBC 5.35 4.70 - 6.10 09/08/2016 [facility] HEMATOLOGY MCV 89.8 80.0 - 94.0 09/08/2016 [facility] HEMATOLOGY RDW 14.6 11.5 - 14.5 09/08/2016 [facility] HEMATOLOGY MCH 29.4 27.0 - 31.0 09/08/2016 [facility] HEMATOLOGY MCHC 32.7 32.0 - 36.0 09/08/2016 [facility] HEMATOLOGY Hct 48.1 42.0 - 54.0 09/08/2016 [facility] HEMATOLOGY WBC 11.4 3.7 - 10.4 09/08/2016 [facility] HEMATOLOGY Hgb 15.7 14.0 - 18.0 09/08/2016 [facility] HEMATOLOGY Basophils # 0.1 0.0 - 0.2 09/07/2016 [facility] Pathology Reports No Data Provided for This Section Diagnostic Reports Report Value Date Source Retroperitoneal Complete US EX AM: US RENAL DATE: 06/04/2019 7:09 CDT INDICATION: - renal failure ADDITIONAL INFORMATION: None. COMPARISON: None. TECHNIQUE: Multiplanar grayscale and color Doppler ultrasound of the kidneys and urinary bladder. FINDINGS: Right kidney: Size: 9.9 x 4 0.0, 4.8 cm. Cortical thickness: Normal. Hydronephrosis: None. Echogenicity: Normal. Calculi: None. Cysts/Masses: None. Left kidney: Size: 9.7 x 5.7 x 4.8 cm. Cortical thickness: Normal. Hydronephrosis: None. Echogenicity: Normal. Calculi: None. Cysts/Masses: None. Bladder: Normal. Free fluid: None. Other: None. IMPRESSION: 1. Normal renal ultrasound. 06/04/2019 [facility] Chest CTA w Abd/Pelvis w IV contrast CT EXAM: CT angiography of the chest, abdomen, and pelvis with IV contrast INDICATION: Shortness of breath, tachycardia, history of lap band/hernia repair with infection COMPARISON: CT abdomen and pelvis performed on 09/05/2018 Technique: Axial CT images through the chest, abdomen, and pelvis were obtained with IV contrast. Coronal and sagittal reformats were obtained. 3-D reconstructions were obtained as well. Contrast: 100 cc of IV Omnipaque contrast material was used for the exam. CT imaging performed at this location utilizes radiation dose optimization techniques which include one or more of the following: -Automated exposure control -Adjustment of the mA and/or kV accordin g to patient size -Use of iterative reconstruction [employer] ue CT Radiation Dose DLP 2340.5 mGy-cm FINDINGS: CHEST: There is partial atelectatic collapse of the right lower lobe. Patchy consolidation involves the left upper and left lower lobes. No pneumothorax or pleural effusion identified. No endobronchial abnormalities identified otherwise. No threshold enlarged hilar, mediastinal, or axillary lymph nodes identified. No cardiomegaly or pericardial effusion. Main pulmonary artery and thoracic aorta are normal in caliber. ABDOMEN: Liver, spleen, adrenal glands, pancreas, and gallbladder are within normal limits. No hydroureteronephrosis or urolithiasis identified. No focal renal lesions identified. Small bowel and colon are nondilated. Postsurgical changes from partial colectomy and reanastomosis are noted. The appendix is normal. Large anterior abdominal wound is present. Fluid is noted inferiorly and posteriorly within the wound, measuring 3.9 x 1.8 cm on series 4 image 84, similar to or decreased in size compared to prior study. No encapsulated fluid collection or abscess identified. There is circumferential wall thickening of the distal esophagus. Small hiatal hernia is suspected as well. The stomach is otherwise within normal limits. Abdominal aorta is normal in caliber. No threshold enlarged periaortic, retroperitoneal, mesenteric, or inguinal lymph nodes identified. PELVIS: Bladder is collapsed. No pelvic mass, free fluid, or lymphadenopathy identified. Small bilateral fat-containing inguinal hernias are present. No suspicious lytic or blastic osseous lesions identified. VASCULATURE: Suboptimal contrast bolus timing and respiratory motion precludes assessment for subsegmental pulmonary arterial filling defects. No large central, lobar, or segmental pulmonary embolism identified. Main pulmonary artery and thoracic aorta are normal in caliber. IMPRESSION: Suboptimal contrast bolus timing and respiratory motion precludes assessment for subsegmental pulmonary bleb. No central, lobar, or large segmental pulmonary emboli identified. Left upper and left lower lobe patchy consolidation is consistent with pneumonia. Follow-up to radiographic resolution is recommended. Circumferential wall thickening of the distal esophagus is similar to prior study. This may in part be postsurgical. Esophagitis can however have a similar imaging appearance. Small hiatal hernia is also suspected. Increased widening of anterior abdominal wound. Fluid or developing granulation tissue in the dependent aspect of the wound is similar in size/extent to prior study. No completely encapsulated fluid collection. SL: MAYA 10/06/2018 [facility] 1view DX Clinical Indica tion: - Undifferentiated Sepsis Comparison: 09/05/2018 FINDINGS: AP chest radiograph was obtained. MEDIASTINUM: The cardiac silhouette is normal in size. The aorta is unremarkable. There is a right upper extremity PICC line with the distal tip overlying the superior vena cava. LUNGS: Lung volumes are mildly decreased. There is patchy opacity in the left upper lung. There is blunting the right costophrenic angle. There are no pneumothoraces. BONES: The visualized osseous structures are unremarkable. IMPRESSION: 1. Left mid to upper lung airspace dise ase. Small right effusion. SL: [id number] 10/06/2018 [facility] 1view DX Patient Name: Pacheco HAIRSTON : 1945; Age: 73 years Male MR: [id number] Study: [facility] 1view DX Order Time: 09/05/2018 13:41 [employer] CLINICAL INDICATION: - STAT portable Chest X-ray [...] earlier CT on 09/05/2018 at 0552. SL: [id number] 09/05/2018 [facility] Abdomen/Pelvis w/wo IV contrast CT Patient Name: SIMON HAIRSTON : 1945; Age: 73 years Male MR: [id number] Study: Abdomen/Pelvis w/wo IV contrast CT 09/04/2018 15:03 [employer] Clinical Indication: - concern for infected mesh. [...] control -Adjustment of the mA and/or kV accordin g to patient size -Use of iterative reconstruction [employer] ue CT Radiation Dose DLP 2502 mGy-cm IV [...] surveillance is advised. 4. Normal appendix. SL: [id number] 09/04/2018 [facility] Abdomen wo IV contrast CT CT A BDOMEN WITHOUT CONTRAST: HISTORY: Nonhealing abdominal wall wound [...] 2. Interval decrease in size of the ante rior abdominal wall abscess, now consisting predominantly of a residual thick wall and a small amount of fluid. There is no evidence of intraperitoneal communication, abscess or dehiscence. 3. No other acute intra-abdominal proces s. [id number] 06/28/2018 [facility] Abscess abdomen peritoneum drainage VR EXAM: VIR Ultrasound Guided Abscess Drainage Catheter Placement. DATE: 04/05/2018 2:11 PM CDT PROCEDURE(S) PERFORMED: Ultrasound-guided abdominal abscess drainage catheter placement . INDICATION: 73 years year-old Male with A midline soft tissue abscess in the same area as the LAP-BAND PRE-PROCEDURE DIAGNOSIS: Midline Abscess POST-PROCEDURE DIAGNOSIS: Midline Abscess FACULTY: Joshua West MD RESIDENT/FELLOW/VETERINARY EPIDEMIOLOGIST: None SUPERVISION: Not applicable ANESTHESIA/SEDATION: Moderate sedation SPECIMEN: Bloody purulent fluid was sent for analysis DRAINS: 12-Kittitian APD catheter ESTIMATED BLOOD LOSS: Less than [...] needle was removed, and a 0.035 inch [employer] wire was then advanced through the catheter i nto the collection, with wire positioning confirmed with ultrasoundimaging. Serial dilation was performed over the wire with 8 and 12 Kittitian dilators. A 12 Kittitian locking pigtail drainage catheter was then advanced [...] the procedure well. IMPRESSION: 1. Ultrasound-guided percutaneous abdomi nal abscess drainage catheter placement with 30 mL [...] MD was present for the procedure. 04/05/2018 [facility] Abdomen/Pelvis w IV contrast CT EXAM: CT [...] 17.2 x 13.5 x 7.8 cm large rim-enh ancing thick walled subcutaneous fluid collection in the anterior abdominal wall with surrounding fat stranding, likely representing infected seroma. 2. No intra-abdominal collection to sug gest abscess. No evidence of contrast extravasation. 3. Unchanged tiny hypodensity in the in ferior pole of left kidney, too small to characterize, likely renal cyst. 4. Enlarged prostate with median lobe h ypertrophy. Clinical correlation with PSA. 04/04/2018 [facility] Brain wo contrast CT PATIENT N INDER: SIMON HAIRSTON : 1945; Age: 72 years y/o Male MR: [id number] STUDY: Brain wo contrast CT 08/30/2017 1:29 PM [employer] ORDERING PHYSICIAN: Brad Lopez MD CLINICAL INDICATION: [...] of intracranial hemorrhages No acute findings 08/30/2017 [facility] [place] Brain wo contrast CT EXAM: CT BRAIN WITHOUT CONTRAST DATE: 08/13/2017 12:30 PM [employer] INDICATION: - eval hemorrhage COMPARISON: CT of [...] Impression: 1. No significant change in small amoun t of subarachnoid hemorrhage in the cingulate sulcus sulcus and anterior interhemispheric region. 2. Soft tissue swelling at the left par ietal scalp with overlying stacy is again noted. UT SECTION: Neuro 08/13/2017 [facility] Brain wo contrast CT EXAM: CT BRAIN WITHOUT CONTRAST DATE: 08/13/2017 6:16 AM [employer] INDICATION: Subarachnoid hemorrhage after trauma COMPARISON: 08/13/2017 [...] the brain parenchyma itself is unchanged. 08/13/2017 [facility] Guided Needle BX/Asp/Inj/NeedLoc US EXAM: Guided Needle BX/Asp/Inj/NeedLoc US HISTORY: 72 years old Male with post gastric band surgery abdominal wall seroma development. Primary team requested drainage catheter placement. PRE-PROCEDURE DIAGNOSIS: Post gastric band surgery abdominal wall seroma POST-PROCEDURE DIAGNOSIS: Same FACULTY: Dr. Ling MD RESIDENT/FELLOW/VETERINARY EPIDEMIOLOGIST: ANESTHESIA/SEDATION: Moderate sedation. SPECIMEN:None. DRAINS: 8 Kittitian pigtail catheter ESTIMATED BLOOD LOSS: Less than [...] was administered. Utilizing continuous ultrasound guidance an 8.5-Kittitian all-purpose drainage with sharp needle was advanced [...] stable condition. IMPRESSION: 1. Image-guided aspiration with placeme nt of drainage catheter into anterior abdominal wall collection. FOLLOW-UP RECOMMENDATIONS: Per clinical team. I, Dr. Dubon was present throughout the procedure. 02/16/2017 [facility] Abdomen cyst aspiration w guidance CT EXAM: [...] around the LAP-BAND FACULTY: Fredis Sood MD RESIDENT/FELLOW/VETERINARY EPIDEMIOLOGIST: Pritesh Boogie M.D. SUPERVISION: I was present [...] after 1% lidocaine local anesthesia, a 5 Kittitian/19 gauge sheathed catheter/needle was advanced into the [...] dressing was applied. IMPRESSION: 1.CT-guided and ultrasound-guided aspira tion of a multiloculated collection in the anterior abdominal wall around the previously placed lap band. Dr. Fredis Sood MD was present for the procedure. 02/08/2017 [facility] Abdomen/Pelvis w IV contrast CT Exam: CT [...] obtained for additional diagnostic information. Total exam DLP = 1462 mGy-cm. This exam was performed according to [...] a seroma. No ventral hernia identified. 01/17/2017 [facility] Brain w/wo contrast MRI PATIEN T NAME: SIMON HAIRSTON : 1945; Age: 71 years y/o Male MR: [id number] STUDY: Brain w/wo contrast MRI 01/17/2017 10:30 [...] normal 3. No clearly evident explanation for pa tient's pain 01/17/2017 [facility] [place] Abdomen AP DX EXAM: XR ABDOMEN 1 [...] tissues: Normal. IMPRESSION: 1. Improved ileus 09/09/2016 [facility] Abdomen 2 views DX EXAM: XR AB DOMEN 3 FRONTAL VIEWS DATE: 09/09/2016 9:19 AM [employer] INDICATION: Abdominal distension ADDITIONAL INFORMATION: None. COMPARISON: [...] Normal. IMPRESSION: 1. Nonspecific gaseous distention of th e colon without definite obstruction. 09/09/2016 [facility] Abdomen AP DX EXAM: XR ABDOMEN 1 FRONTAL VIEW DATE: 09/08/2016 4:44 PM [employer] INDICATION: Tube placement/removal/reposition ADDITIONAL INFORMATION: None. COMPARISON: [...] IMPRESSION: 1. NG tube as detailed. 09/08/2016 [facility] Abdomen 2 views DX EXAM: XR AB DOMEN 3 FRONTAL VIEWS DATE: 09/08/2016 7:16 AM [employer] INDICATION: Abdominal distension ADDITIONAL INFORMATION: None. COMPARISON: [...] inferior ventral hernia. Recommend continue follow-up. 09/08/2016 [facility] Consultation Notes No Data Provided for This Section Discharge Summaries No Data Provided for This Section History and Physicals No Data Provided for This Section Vital Signs Vital Sign Value Date Comments Source Temperature Oral (F) 98.0 F 06/05/2019 [facility] Heart Rate 92 06/05/2019 [facility] Respitory Rate 16 06/05/2019 [facility] Systolic (mm Hg) 125 06/05/2019 [facility] Diastolic (mm Hg) 75 06/05/2019 [facility] Temperature Oral (F) 98.1 F 06/05/2019 [facility] Heart Rate 92 06/05/2019 [facility] Respitory Rate 20 06/05/2019 [facility] Systolic (mm Hg) 110 06/05/2019 [facility] Diastolic (mm Hg) 68 06/05/2019 [facility] Temperature Oral (F) 98.2 F 06/05/2019 [facility] Heart Rate 93 06/05/2019 [facility] Respitory Rate 20 06/05/2019 [facility] Systolic (mm Hg) 135 06/05/2019 [facility] Diastolic (mm Hg) 78 06/05/2019 [facility] Height 167.64 cm 06/03/2019 [facility] Weight 118 06/03/2019 [facility] BMI Calculated 41.99 06/03/2019 [facility] Height 167.64 cm 06/02/2019 [facility] Weight 118 06/02/2019 [facility] BMI Calculated 41.99 06/02/2019 [facility] Temperature Oral (F) 98 F 10/10/2018 [facility] Systolic (mm Hg) 129 10/10/2018 [facility] Diastolic (mm Hg) 72 10/10/2018 [facility] Heart Rate 75 10/10/2018 [facility] Respitory Rate 16 10/10/2018 [facility] Systolic (mm Hg) 115 10/10/2018 [facility] Diastolic (mm Hg) 75 10/10/2018 [facility] Heart Rate 82 10/10/2018 [facility] Respitory Rate 16 10/10/2018 [facility] Temperature Oral (F) 98 F 10/10/2018 [facility] Respitory Rate 16 10/10/2018 [facility] Temperature Oral (F) 97.9 F 10/10/2018 [facility] Systolic (mm Hg) 130 10/10/2018 [facility] Diastolic (mm Hg) 71 10/10/2018 [facility] Heart Rate 85 10/10/2018 [facility] Weight 104.545 10/07/2018 [facility] BMI Calculated 36.1 10/07/2018 [facility] Height 170.18 cm 10/07/2018 [facility] Systolic (mm Hg) 132 09/18/2018 [facility] Diastolic (mm Hg) 90 09/18/2018 [facility] Heart Rate 83 09/18/2018 [facility] Respitory Rate 18 09/18/2018 [facility] Temperature Oral (F) 97.6 F 09/06/2018 [facility] Heart Rate 79 09/06/2018 [facility] Respitory Rate 18 09/06/2018 [facility] Systolic (mm Hg) 128 09/06/2018 [facility] Diastolic (mm Hg) 77 09/06/2018 [facility] Respitory Rate 18 09/06/2018 [facility] Temperature Oral (F) 97.8 F 09/06/2018 [facility] Heart Rate 80 09/06/2018 [facility] Systolic (mm Hg) 114 09/06/2018 [facility] Diastolic (mm Hg) 65 09/06/2018 [facility] Temperature Oral (F) 98.6 F 09/06/2018 [facility] Heart Rate 76 09/06/2018 [facility] Systolic (mm Hg) 126 09/06/2018 [facility] Diastolic (mm Hg) 82 09/06/2018 [facility] Height 162.56 cm 09/04/2018 [facility] Weight 105.966 09/04/2018 [facility] BMI Calculated 40.1 09/04/2018 [facility] Respitory Rate 18 07/26/2018 [facility] Systolic (mm Hg) 111 07/26/2018 [facility] Diastolic (mm Hg) 68 07/26/2018 [facility] Heart Rate 80 07/26/2018 [facility] Temperature Oral (F) 97.9 F 07/26/2018 [facility] Systolic (mm Hg) 94 07/26/2018 [facility] Diastolic (mm Hg) 56 07/26/2018 [facility] Respitory Rate 18 07/26/2018 [facility] Heart Rate 84 07/26/2018 [facility] Temperature Oral (F) 99.1 F 07/26/2018 [facility] Heart Rate 78 07/26/2018 [facility] Temperature Oral (F) 97.9 F 07/26/2018 [facility] Systolic (mm Hg) 94 07/26/2018 [facility] Diastolic (mm Hg) 60 07/26/2018 [facility] Respitory Rate 16 07/26/2018 [facility] BMI Calculated 36.39 07/25/2018 [facility] Weight 102.273 07/25/2018 [facility] Height 167.64 cm 07/24/2018 [facility] Systolic (mm Hg) 132 04/10/2018 [facility] Diastolic (mm Hg) 83 04/10/2018 [facility] Temperature Oral (F) 98.2 F 04/10/2018 [facility] Heart Rate 74 04/10/2018 [facility] Respitory Rate 16 04/10/2018 [facility] Temperature Oral (F) 98.2 F 04/10/2018 [facility] Respitory Rate 16 04/10/2018 [facility] Systolic (mm Hg) 124 04/10/2018 [facility] Diastolic (mm Hg) 75 04/10/2018 [facility] Heart Rate 71 04/10/2018 [facility] Systolic (mm Hg) 112 04/10/2018 [facility] Diastolic (mm Hg) 70 04/10/2018 [facility] Respitory Rate 16 04/10/2018 [facility] Heart Rate 74 04/10/2018 [facility] Temperature Oral (F) 97.9 F 04/10/2018 [facility] BMI Calculated 35.44 04/05/2018 [facility] Height 167.64 cm 04/05/2018 [facility] Weight 99.602 04/05/2018 [facility] Height 167.64 cm 04/04/2018 [facility] BMI Calculated 34.77 04/04/2018 [facility] Weight 97.727 04/04/2018 [facility] Heart Rate 71 08/30/2017 [facility] Temperature Oral (F) 97.6 F 08/30/2017 [facility] Weight 96.364 08/30/2017 [facility] BMI Calculated 34.29 08/30/2017 [facility] Height 167.64 cm 08/30/2017 [facility] Systolic (mm Hg) 180 08/30/2017 [facility] Diastolic (mm Hg) 102 08/30/2017 [facility] Respitory Rate 21 08/14/2017 [facility] Systolic (mm Hg) 148 08/14/2017 [facility] Diastolic (mm Hg) 69 08/14/2017 [facility] Respitory Rate 21 08/14/2017 [facility] Systolic (mm Hg) 159 08/14/2017 [facility] Diastolic (mm Hg) 72 08/14/2017 [facility] Systolic (mm Hg) 150 08/14/2017 [facility] Diastolic (mm Hg) 77 08/14/2017 [facility] Respitory Rate 19 08/14/2017 [facility] Temperature Oral (F) 98.3 F 08/14/2017 [facility] BMI Calculated 35.58 08/14/2017 [facility] Weight 100 08/14/2017 [facility] Height 167.64 cm 08/14/2017 [facility] Temperature Oral (F) 97.6 F 08/13/2017 [facility] Temperature Oral (F) 98.4 F 08/13/2017 [facility] Heart Rate 76 08/13/2017 [facility] Weight 90.909 02/16/2017 [facility] BMI Calculated 32.35 02/16/2017 [facility] Height 167.64 cm 02/16/2017 [facility] Respitory Rate 15 02/08/2017 [facility] Systolic (mm Hg) 133 02/08/2017 [facility] Diastolic (mm Hg) 74 02/08/2017 [facility] Respitory Rate 23 02/08/2017 [facility] Systolic (mm Hg) 130 02/08/2017 [facility] Diastolic (mm Hg) 68 02/08/2017 [facility] Systolic (mm Hg) 127 02/08/2017 [facility] Diastolic (mm Hg) 69 02/08/2017 [facility] Respitory Rate 17 02/08/2017 [facility] Weight 90.909 02/08/2017 [facility] BMI Calculated 32.35 02/08/2017 [facility] Height 167.64 cm 02/08/2017 [facility] Systolic (mm Hg) 136 10/09/2016 [facility] Diastolic (mm Hg) 74 10/09/2016 [facility] Respitory Rate 18 10/09/2016 [facility] Heart Rate 74 10/09/2016 [facility] Temperature Oral (F) 98.0 F 10/09/2016 [facility] Temperature Oral (F) 97.6 F 10/09/2016 [facility] Respitory Rate 18 10/09/2016 [facility] Systolic (mm Hg) 131 10/09/2016 [facility] Diastolic (mm Hg) 73 10/09/2016 [facility] Heart Rate 71 10/09/2016 [facility] Heart Rate 70 10/09/2016 [facility] Temperature Oral (F) 98.0 F 10/09/2016 [facility] Systolic (mm Hg) 150 10/09/2016 [facility] Diastolic (mm Hg) 78 10/09/2016 [facility] Respitory Rate 18 10/09/2016 [facility] Height 167.64 cm 10/06/2016 [facility] BMI Calculated 29.92 10/06/2016 [facility] Weight 84.091 10/06/2016 [facility] Weight 84.091 10/05/2016 [facility] BMI Calculated 29.92 10/05/2016 [facility] Height 167.64 cm 10/05/2016 [facility] Height 167.64 cm 09/27/2016 [facility] Weight 81.364 09/27/2016 [facility] BMI Calculated 28.95 09/27/2016 [facility] Temperature Oral (F) 98.5 F 09/12/2016 [facility] Systolic (mm Hg) 135 09/12/2016 [facility] Diastolic (mm Hg) 74 09/12/2016 [facility] Respitory Rate 16 09/12/2016 [facility] Heart Rate 64 09/12/2016 [facility] Respitory Rate 16 09/12/2016 [facility] Heart Rate 58 09/12/2016 [facility] Temperature Oral (F) 98.4 F 09/12/2016 [facility] Systolic (mm Hg) 156 09/12/2016 [facility] Diastolic (mm Hg) 69 09/12/2016 [facility] Temperature Oral (F) 97.9 F 09/12/2016 [facility] Heart Rate 57 09/12/2016 [facility] Respitory Rate 18 09/12/2016 [facility] Systolic (mm Hg) 147 09/12/2016 [facility] Diastolic (mm Hg) 74 09/12/2016 [facility] BMI Calculated 29.92 09/07/2016 [facility] Height 167.64 cm 09/07/2016 [facility] Weight 84.091 09/07/2016 [facility] Encounters Location Location Details Encounter Type Encounter Number Reason For Visit Attending Provider ADM Date DC Date Status Source [facility] Inpatient [id number] Javan Rivero 09/07/2016 09/12/2016 [facility] Inpatient [id number] Fabien Siddiqui 10/05/2016 10/09/2016 [facility] Outpatient [id number] TRACY ARCE M.D. 01/10/2017 [facility] [place] [facility] Diag Services [id number] Tracy Arce 01/17/2017 01/18/2017 [facility] [place] Outpatient [id number] TRACY ARCE M.D. 01/25/2017 [facility] Bedded Outpatient [id number] Fabien Siddiqui 02/08/2017 02/08/2017 [facility] Outpatient [id number] NISA QUIROS 02/16/2017 [facility] Bedded Outpatient [id number] Fabien Siddiqui 02/16/2017 02/16/2017 [facility] Outpatient [id number] TRACY ARCE M.D. 02/28/2017 [facility] Outpatient [id number] NISA QUIROS 03/21/2017 [facility] Neurology [facility] Phone Message [id number] 07/30/2017 08/01/2017 [facility] Phone Message [id number] 08/02/2017 08/04/2017 [facility] Neuro [facility] Inpatient [id number] Justo Spicer 08/13/2017 08/14/2017 [facility] MNA Neurosurgery [facility] Phone Message [id number] 08/15/2017 08/17/2017 [facility] Neurosurgery [facility] Phone Message [id number] 08/29/2017 08/31/2017 [facility] Outpatient [id number] [facility] 08/30/2017 [facility] Outpatient [id number] Chaitanya Camarena 08/30/2017 08/31/2017 [facility] Outpatient [facility] [place] [facility] Diag Services [id number] 00 Brad Blackburnmartine 08/30/2017 08/31/2017 [facility] [place] [facility] [place] [facility] Patients [id number] Pritesh Wagnerleandra 02/18/2018 03/20/2018 [facility] Inpatient [id number] Fabien Siddiqui 04/04/2018 04/10/2018 [facility] Wound Care [id number] Iman Marck 06/17/2018 07/17/2018 [facility] Outpatient [id number] Iman Marck 06/28/2018 06/29/2018 [facility] Observation [id number] Fabien Siddiqui 07/25/2018 07/27/2018 [facility] Wound Care [id number] Pratibha Hyman 08/07/2018 09/06/2018 [facility] Inpatient [id number] Iman Acharya 09/04/2018 09/06/2018 [facility] Ambulatory Pre-Reg [id number] Nick Rubio 09/18/2018 09/19/2018 [facility] Inpatient [id number] Cm Lowe 10/07/2018 10/10/2018 [facility] Wound Care [id number] Shaun Lowery 01/01/2019 01/31/2019 [facility] [facility] [id number] Shaun Lowery 02/12/2019 03/14/2019 [facility] [id number] Shaun Lowery 04/23/2019 05/23/2019 [facility] Inpatient [id number] Fabien Siddiqui 06/04/2019 06/05/2019 [facility] [id number] Shaun Lowery 06/11/2019 07/11/2019 [facility] [id number] Shaun Lowery 07/23/2019 08/13/2019 [facility] [id number] Shaun Lowery 08/20/2019 09/19/2019 [facility] [id number] Shaun Lowery 10/01/2019 10/31/2019 [facility] Procedures Procedure Code Date Perfomer Comments Source Operation<sup>1</sup> [id number] 09/13/2018 WASHOUT [facility] Operation<sup>2</sup> [id number] 07/13/2018 WASHOUT [facility] Image-guided fluid collection drainage b y catheter (eg, abscess, hematoma, seroma, lymphocele, cyst); peritoneal or retroperitoneal, percutaneous [id number] 04/05/2018 [facility] Hernia repair [id number] 10/05/2016 [facility], [facility] [place], [facility] [place] Cataract surgery [id number] 11/14/2013 [facility], [facility] [place],[facility], [facility] [place] Knee joint operation [id number] 11/14/2012 [facility], [facility] [place],[facility] [place] Bariatric operative procedure [id number] 10/13/2002 [facility], [facility] [place],[facility], [facility] [place] Procedure<sup>3</sup> [id number] colostomy take down [facility], [facility] [place],[facility], [facility] [place] Bariatric operative procedure<sup>1</sup> [id number] lap band [facility], [facility] [place],[facility], [facility] [place] Colostomy [id number] [facility], [facility] [place],[facility], [facility] [place] Procedure<sup>2</sup> [id number] colostomy take down [facility], [facility] [place],[facility], [facility] [place] Bariatric operative procedure<sup>4</sup> [id number] lap band [facility] Procedure<sup>5</sup> [id number] colon perforation required hospitalization [facility] Assessment and Plan Assessment and Plan Date Source Extracted from:Title: [place] Nephrology Prog ress Note Author: Allie Costa MD Date: 06/05/19 Patient is a 74 year old male with a past medical history of HTN, COPD, hypothyroidism, GERD, CKD, status post lap band procedure with abdominal wound complication who presented for abdominal wound I/D. He developed LOIS for which nephrology has been consulted. # LOIS, resolving - related to surgery or pre-op insult - peaked at 3.22, now downtrending - responsive to fluid resuscitation - encourage PO intake when off fluids - Avoid nephrotoxic agents, ensure that all medications are renally doses base on estimated creatinine clearance Plan discussed with Dr. Bruno. Thank you for this interesting consult. We will sign off at this time, but please perfectserve if any questions arise. Addendum by Ishan Bruno MD on 06/06/2019 05:24 CDT Teaching Physician Attestation: I saw and evaluated the patient and discussedwith the resident team. I reviewed the clinical data and confirmed the findings. We formulated the assessment and plans. I agree withthis note. Ishan Bruno MD Extracted from:Title: [facility] Nephrology Consult Note Author: Tarun Cline MD Date: 06/03/19 Patient is a 74 year old male with a past medical history of HTN, COPD, hypothyroidism, GERD, CKD, status post lap band procedure with abdominal wound complication. We were consultedto assist in management of LOIS noted post-op. #LOIS ? related to surgery or pre-op insult -No values close to pre-op are available in computer -We would like to acces pre-opevallab va lues when available -We recommend a Harry cath be inserted f or strict I/O charting -If patient is oliguric we will do urine Na and creat and determine FENA. -Recommend a KUB ultrasound as well -Urinalysis for review - Continue IVF at 100 ml/hr for 1L more to encourage maintain BP -Avoid hypotension -Avoid nephrotoxic agents -Ensure that all medications are renally doses base on estimated creatinine clearance - CT abd and pelvis of 08/2018 shows - no hydronephrosis but shows an 8 mm left renal lesion. Case for review with Dr Ya. Thank you for your consult! Tarun Cline MD Nephrology Fellow, PGY4 [facility] Post Rounds Addendum: LOIS improving with Cr 2.3 this morning. SuspectAKI 2/2pre-renal vs ATNrelated to surgery and anesthesia. Recommend continuingmaintenance fluids and monitoring for urinary retention. Plan discussed with Dr. Bruno. Please perfectserve with any questions. Teaching Physician Attestation: I saw and evaluated the patient and discussed with the resident team. I reviewed the clinical data and confirmed the findings. We formulated the assessment and plans. I agree with thisnote. Ishan Bruno MD 06/05/2019 [facility] Extracted from:Title: Clinical Document Author: Colin Hairston MD Date: 10/10/18 Wound Care Progress Note Colin Hairston MD, PA Subjective: Patient seen, examined and events noted. Objective: Vitals and Temp: Vitals Tmp(F) Pulse BP RR SpO2 FIO2 10/10 12:01 98 82 115/75 16 95 --- 10/10 08:17 97.9 85 130/71 1 6 95 --- 10/10 04:00 98.1 85 134/63 1 6 94 --- 10/10 00:00 97.9 83 148/71 1 6 97 --- 10/09 21:38 ---- --- ----- 1 6 99 21% 24 Hr Tmax: 98.5F (36.94c) at 10/09 16:4 5 Vital Signs are the last 5 in the past 48 hours. 24hr Labs 10/09 0815 Prealbumin 12.9 L Diagnostics: PHYSICAL EXAMINATION Chest: Clear, no rhonchi Heart: S1, S2, regular rhythm. RN MIDWIFE: Wounds: Location: post surgical abdominal wound Size:no chnage Base wound: * (X) lau as present (_x) Granulation (_) Yellow (_) Slough (_) Black eschar (_) Odor (_) Maceration Drainage (_) None (_) Scant (_x) Small (_) Moderate (_) Heavy Appearance of drainage: (_x) Serous (_) Serosanguinous (_) Green (_) Yellow (_) Seropurulent (_) Purulent (_) Bloody Medications (16) Active Scheduled: (12) albuterol 0.083% 3 ml neb SOLN 2.49 mg 3 mL, NEB, RQID budesonide 0.5 mg/2ml neb SUSP 0.5 mg 2 mL, NEB, RBID carbidopa-levodopa 25-100 mg TAB 2 tab, PO, BID gabapentin 300 mg CAP 600 mg 2 cap, PO, Q6H levofloxacin 750mg/D5W 150ml Premixed IV 750 mg 150 mL, IV, Q24H levothyroxine 125 microgram TAB 125 microgram 1 tab, PO, Q630AM pantoprazole 40 mg ECT 40 mg 1 tab, PO, Daily piperacillin-tazobactam INJ + sodium chloride 0.9% INJ 100ml (mini-bag Plus) 100 mL 3.375 gm, IV, ABXQ8H rivaroxaban 20 mg TAB 20 mg 1 tab, PO, QPM sertraline 100 mg TAB 100 mg 1 tab, PO, Daily torsemide 20 mg TAB 20 mg 1 tab, PO, Daily valsartan 80 mg tab 80 mg 1 tab, PO, BID Continuous: (0) PRN: (4) acetaminophen 325 mg TABLET 650 mg 2 tab, PO, Q4H albuterol 0.083% 3 ml neb SOLN 2.49 mg 3 mL, NEB, Q6H sodium chloride 0.9% 10 ml flush syr BD 10 mL, IVP, PRN traMADol 50 mg TAB 50 mg 1 tab, PO, Q6H ASSESSMENT AND PLAN: post surgical abdominal wound is imroving Continue current treatment. Follow up for monitoring infection and wound progress. Extracted from:Title: SYLVIE [employer] [employer] History and Physical Author: Cheyenne Christianson MD Date: 10/07/18 Patient is a 73 year old manwith past medical history of HTN, COPD, hypothyroidism, GERD, CKD, status post lap band procedure with abdominal wound complication, who presents to the ED complaining of acute SOB. Admitted for acute sepsis 2/2 upper and lower lobe pneumonia as well as increased widening of anterior abdominal wound. 1.Acute sepsis(A41.9) - 2/2 PNA and abdominal wound - vancomycin, levofloxacin and zosyn - Consult ID. Appreciate further recomme ndations. Ordered: Admit/Condition, 10/07/18 0:27:00 [employer], Status: Inpatient, Telemetry Capable Location, Expected LOS: 3 or Greater Midnights, Cheyenne Christianson MD, Admit MD Review/Approve Yes, Isolation: Contact, SOB (shortness of breath) | PNA (pneumonia) | Acute sepsis 2.PNA (pneumonia)(J18.9) - HCAP (recent hospitalizations) - vancomycin, levofloxacin and zosyn - Consult ID. Appreciate further recomme ndations. Ordered: Admit/Condition, 10/07/18 0:27:00 [employer], Status: Inpatient, Telemetry Capable Location, Expected LOS: 3 or Greater Midnights, Cheyenne Christianson MD, Admit Review/Approve Yes, Isolation: Contact, SOB (shortness of breath) | PNA (pneumonia) | Acute sepsis 3.Open abdominal wall wound(S31.109A) - vancomycin, levofloxacin and zosyn - Consult ID. Appreciate further recomme ndations. 4.COPD (chronic obstructive pulmonary disease)(J44.9) - continue home medications 5.GERD (gastroesophageal reflux disease)(K21.9) - continue home medications 6.HTN (hypertension)(I10) - continue home medications 7.Hypothyroid(E03.9) - continue home medications per protocol Anticipate discharge home in2 or moremidnights pending clinical improvement. Cheyenne Christianson MD [employer] [employer] 10/10/2018 [facility] Extracted from:Title: Surgery Staff Author: Viky Rubio MD Date: 09/06/18 Surgery Staff Progress Note Viky Rubio M.D. cc: abdominal wound SUBJECTIVE: AFVSS overnight. [...] debris throughout ext - warm to touch Vitals Tmp(F) Pulse BP RR SpO2 FIO2 09/06 11:47 97.6 79 128/77 1 8 96 --- 09/06 07:58 97.8 80 114/65 1 8 96 21% 09/06 04:00 98.6 76 126/82 1 8 97 --- 09/06 00:32 98.5 83 129/79 1 8 96 --- 09/05 20:00 98.8 88 125/75 1 6 97 --- 24 Hr Tmax: 98.8F (37.11c) at 09/05 20:0 0 Vital Signs are the last 5 in the past 48 hours. I&O Record In Out Bal 09/06 24hr Tot 102 0 102 09/05 24hr Tot 1318 5 1313 Labs (Last four charted values) WBC H 10.7 (SEP 06) 9.6 (SEP 05) H 11.0 (SEP 04) Hgb L 10.8 (SEP 06) L 10.2 (SEP 05) L 11.9 (SEP 04) Hct L 33.0 (SEP 06) L 31.6 (SEP 05) L 36.0 (SEP 04) Plt 286 (SEP 06) 253 (SEP 05) 241 (SEP 04) Na 143 (SEP 06) 136 (SEP 05) 141 (SEP 04) K 4.4 (SEP 06) 4.2 (SEP 05) 4.6 (SEP 04) CO2 25 (SEP 06) 27 (SEP 05) 24 (SEP 04) Cl 109 (SEP 06) 105 (SEP 05) 106 (SEP 04) Cr 1.31 (SEP 06) 1.26 (SEP 05) 1.38 (SEP 04) BUN H 28 (SEP 06) H 28 (SEP 05) H 32 (SEP 04) Glucose Random H 119 (SEP 06) H 102 (SEP 05) 99 (SEP 04) Mg 2.4 (SEP 06) H 2.5 (SEP 05) Phos 3.7 (SEP 06) 3.5 (SEP 05) Ca 8.6 (SEP 06) L 8.3 (SEP 05) 8.9 (SEP 04) ASSESSMENT: 73 year old gentleman with complex surgical history presents with abdominal wound s/p incision and drainage of abdominal wall abscess Jul 2018. PLAN: 1. Dr. Acharya will have the patient darshan nue wet to dry dressing changes at home until he sees her and Dr. Fabien Siddiqui (his surgeon) in clinic next week. Tentative plan is to discharge patient home today with home health or patient's doing the dressing changes. Dr. Javan Gray will be covering for me . to 2.1.19. If patient needs any further surgical attention/recs while admitted at [facility], please contact him. Extracted from:Title: Surgery Staff Author: Viky Rubio MD Date: 09/04/18 CONSULTATION VIKY RUBIO MD CC: abdominal wound HPI: 73 [...] care. He was sent for admission to [facility] today after recent wound culture grew out MRSA and he was referred to Infectious Disease for further workup. Patient currently AFVSS with no abdominal pain. PMH: 1. morbid obesity s/p Lap Band placement /removal 2. htn 3. hypothyroid 4. afib 5. Parkinson's 6. CKD 7. GERD PSH: as per above FAM HISTORY: non contributory SOCIAL HISTORY: no tobacco + ETOH lives with MEDICATIONS: please see chart ALLERGIES: bactrim ROS: negative x 14 systems (constitutional, eyes, ENT, CV, respiratory, GI, , MSK, neuro, psych, endocrine, heme/lymph, allergic, skin/breast) EXCEPT per HPI EXAM: Vitals Tmp(F) Pulse BP RR SpO2 FIO2 09/05 08:08 ---- --- ----- 1 4 95 21% 09/05 07:00 98.3 80 110/61 2 2 100 --- 09/05 04:00 98.5 76 132/84 1 8 100 --- 09/05 00:00 98.8 81 114/66 1 8 100 --- 09/04 20:32 99.1 86 109/69 2 0 99 --- 24 Hr Tmax: 99.1F (37.28c) at 09/04 20:3 2 Vital Signs are the last 5 in the past 48 hours. I&O Record In Out Bal 09/04 24hr Tot [phone] 09/03 24hr Tot 0 0 0 GENERAL/CONSTITUTIONAL - NAD [...] tone Labs (Last four charted values) WBC 9.6 (SEP 05) H 11.0 (SEP 04) Hgb L 10.2 (SEP 05) L 11.9 (SEP 04) Hct L 31.6 (SEP 05) L 36.0 (SEP 04) Plt 253 (SEP 05) 241 (SEP 04) Na 136 (SEP 05) 141 (SEP 04) K 4.2 (SEP 05) 4.6 (SEP 04) CO2 27 (SEP 05) 24 (SEP 04) Cl 105 (SEP 05) 106 (SEP 04) Cr 1.26 (SEP 05) 1.38 (SEP 04) BUN H 28 (SEP 05) H 32 (SEP 04) Glucose Random H 102 (SEP 05) 99 (SEP 04) Mg H 2.5 (SEP 05) Phos 3.5 (SEP 05) Ca L 8.3 (SEP 05) 8.9 (SEP 04) ASSESSMENT: 73 year old gentleman with complex surgical history presents with abdominal wound s/p incision and drainage of abdominal wall wound with VAC placement Jul 2018. PLAN: 1. Will take down VAC dressing tomorrow AM to assess wound when director of health education available with replacement VAC supplies. 2. Further recs pending above. Discussed with patient and . All questions answered. Extracted from:Title: General Admission H&P * Author: Hannah Izaguirre [...] transfer service to Dr. kline in a.m. 09/06/2018 [facility] Extracted from:Title: Wound details Author: Zhao Roth MD Date: 07/26/18 Wound type: surgical incision and drainage of prior abdominal wall abscess, extrafascial. Midline laparotomy, no fascial involvement, no undermining or tunnelling/sinus. Size: 18cm in lenght, 10cm in depth, 4cm in width. Wound bed: fibrinous, white, mechanically debrided in the operating room on 07/25/2018. Dressing applied: KCI VAC GRANUFOAM, Medium dressing (i.e. black sponge). Pressure -125mmHg 07/27/2018 [facility] Extracted from:Title: Amor Fu Progress N ote Author: Franck Ruff MD Date: 04/10/18 A73 Years old Male presents with infected hematoma, lap band and port POD #2 S/P lap band/port removal and I&D abdominal wall hematoma w/ wound vac placement -WV change 04/10/2018. -discharge pending home health approval -pain control: MMT -regular diet -encourage ambulation Franck Ruff MD, R1 Pager [phone] Addendum by Fabien Siddiqui MD on 04/17/2018 09:58 CDT I, Dr. Fabien Siddiqui, the surgical faculty physician for this patient have seen and examined the patient with Dr. Ruff, reviewed the above note, and agree with the assessment and plan. Extracted from:Title: Amor Fu Consult Note Author: Nirav Akbar MD Date: 04/04/18 Admitting Physician: Fabien Siddiqui MD Consulted Physician: Fabien Siddiqui MD Date of Consultation: 04/04/2018 19:34 Consult Regarding: abdominal pain Chief Complaint: I have some redness and pain in my abdomen History of Present Illness: 73 year old male presents with a PSH of lap band in 2002 placed by Shaun Siddiqui and a hernia repair done in 09/2016 by Fabien Siddiqui. Pt says that about a month ago he went to the clinic to have his balloon inflated and said that they had trouble finding the port site. He presents today due to pain and redness in his abdomen for past 4 days. Says he has also had diarrhea and been intermittently febrile for the same duration. Denies blood in stool. Denies nausea/vomiting or other associated symptoms Past Medical History: Atrial fibrillation Hypothyroid GERD (gastroesophageal reflux disease) HTN (hypertension) Incisional hernia CKD (chronic kidney disease) stage 3, GFR 30-59 ml/min Facial neuropathy Past Surgical History: Hernia repair: 12/15/16 Hernia repair: 10/05/16 Cataract surgery: 11/14/13 Knee joint operation: 11/14/12 Bariatric operative procedure: 10/13/02 Colostomy: 09/14/01 Procedure Procedure Colostomy Bariatric operative procedure Allergies: Bactrim Medications: Medications (5) Active Scheduled Meds: None Unscheduled Meds: None PRN Meds (1): 04/04/18 sodium chloride (Saline Flush 0 .9%) 10 mL IVP PRN One Time Meds (4): 04/04/18 (Completed) Sodium Chloride 0. 9% IV (Sodium Chloride 0.9% (Bolus) IV) 2,931.81 mL IV ONCE 1954.54 ml/hr 04/04/18 (Completed) cefTRIAXone 1 gm I VPB ONCE 04/04/18 (Completed) metroNIDAZOLE (Fla gyl) 500 mg IVPB ONCE 200 ml/hr 04/04/18 (Completed) vancomycin + Sodiu m Chloride 0.9% IV 500 mL 2 gm IVPB ONCE 250 ml/hr Continuous Infusions: None Immunization status: Immunizations No Immunizations Documented This Visit Family History: Father: Congestive heart failure Mother: CA - Cancer of colon Father: Hypertension Sister: CA - Breast cancer Grandparent: Stroke Sister: CA - Breast cancer Uncle: [place] - Cancer of colon Social History: Employment/School Details: Status: Retired. Details: Status: Retired. Highest education level: High school. Sexual Details: Sexual orientation: Heterosexual. Alcohol Details: Current, Type Beer. Frequency: Daily. Last use: 08/12/17. Previous treatment: None. Alcohol use interferes with work or home: No. Drinks more than intended: Yes. Others hurt by drinking: Yes. Ready to change: No. Household alcohol concerns: No. Details: Past, Type Beer. Frequency: Daily. Started age 68 Years. Alcohol use interferes with work or home: No. Drinks more than intended: No. Others hurt by drinking: No. Ready to change: Yes. Household alcohol concerns: Yes. Exercise Details: Exercise frequency: Daily. Self assessment: Poor condition. Exercise type: Walking. Tobacco Details: Use: Current every day smoker. Type: Chewing tobacco. Tobacco smoke exposure: None. Did the Patient Smoke Cigarettes Anytime During the Last 365 Days? Yes. Cessation Counseling Provided? Yes. Details: Use: Former smoker. Type: Cigarettes. 32 year(s). Previous treatment: None. Tobacco smoke exposure: None. Did the Patient Smoke Cigarettes Anytime During the Last 365 Days? No. Cessation Counseling Provided? No. Substance Abuse Details: Use: None. Details: Use: None. Review of Systems Constitutional symptoms: Denies weight loss, night sweats, fatigue Cardiovascular: Denies murmurs, chest pain Respiratory: Denies, cough, wheezing, apnea, cyanosis, difficulty breathing Gastrointestinal: Denies decreased feeding/appetite, vomiting, diarrhea, constipation, blood in the stools Genitourinary: Denies changes in urine output, says he has known history of CKD Musculoskeletal: Denies joint swelling, tenderness, weakness Skin: Denies rashes, dryness, itching Neurological: Denies seizures, loss of consciousness, numbness, tingling, weakness Physical Exam Vital Signs: Vitals Tmp(F) Pulse BP RR SpO2 FIO2 04/04 18:56 ---- 71 116/50 2 8 99 --- 04/04 18:04 98.4 69 116/56 1 8 --- --- 04/04 15:43 ---- 60 114/59 2 0 99 --- 04/04 14:31 98.2 67 110/59 2 4 98 --- 04/04 13:13 ---- --- ----- - - 95 --- 24 Hr Tmax: 98.4F (36.89c) at 04/04 18:0 4 Vital Signs are the last 5 in the past 48 hours. General appearance: Well-developed, well-nourished and in no acute distress Skin: Integument intact without rashes, erythema on abdomen present for past 4 days HEENT: normocephalic, neck without masses or lymphadenopathy CV: capillary refill <3 seconds and no evidence of venous insufficiency Lungs: no distress on room air, equal chest rise bilaterally Abdomen: soft, TTP over erythema, otherwise NTTP, non-distended, palpable mass midline with erythema overlying Musculoskeletal: no limitation of passive/active motion Neurological: appropriately interactive Pertinent Laboratory Evaluation [facility] BUN: 33 mg/dL High (04/04/18) Hct: 38.5 % Low (04/04/18) Hgb: 12.5 g/dL Low (04/04/18) MCH: 25 pg Low (04/04/18) MCHC: 32.4 g/dL (04/04/18) MCV: 76.9 fL Low (04/04/18) MPV: 7.6 fL (04/04/18) Platelet: 442 K/CMM (04/04/18) RBC: 5 M/CMM (04/04/18) RDW: 17.9 % High (04/04/18) WBC: 16.8 K/CMM High (04/04/18) Imaging Studies (last 36 hours) Abdomen/Pelvis w IV contrast CT 04/04/2018 15:13 Impression: 1. A 17.2 x 13.5 x 7.8 cm large rim-enh ancing thick walled subcutaneous fluid collection in the anterior abdominal wall with surrounding fat stranding, likely representing infected seroma. 2. No intra-abdominal collection to sug gest abscess. No evidence of contrast extravasation. 3. Unchanged tiny hypodensity in the in ferior pole of left kidney, too small to characterize, likely renal cyst. 4. Enlarged prostate with median lobe h ypertrophy. Clinical correlation with PSA. Assessment: 73 Years Male presents with abdominal pain and erythema likely infected seroma Plan: -admit to [facility] surgery -9 Marks -hold xeralto -conult IR for possible drainage vs cult ure -pain control: MMT -mIVF -IV abx Nirav Akbar MD PGY1, [phone] Pager [phone] I, Dr. Fabien Siddiqui, the surgical faculty physician for this patient have seen and examined the patient with Dr. Akbar, reviewed the above note, and agree with the assessment and plan. 04/10/2018 [facility] Extracted from:Title: Clinical Document Author: Jeanette Booth MD Date: 10/09/16 [facility] General Surgery Progress Note Subjective: C/o shortness of breath with walking. No acute events overnight. Scheduled Meds (11): 10/06/16 9:00 AMIODarone 200 mg PO Daily [eMAR Schedule: (10/09/16) 09:00] [Future Dose: 10/10/16 09:00] 10/05/16 16:00 acetaminophen 1,000 mg PO Q6Hnow [Last Rescheduled Dt/Tm: 10/05/16 22:00:00 [employer]] [eMAR Schedule: (10/09/16) 04:00, 10:00, 16:00] 10/05/16 16:00 celecoxib 200 mg PO Q12Hn ow [Last Rescheduled Dt/Tm: 10/06/16 4:00:00 [employer]] [eMAR Schedule: (10/09/16) 04:00, 16:00] 10/05/16 17:00 docusate (docusate sodium 100 mg oral capsule) 100 mg PO BID [eMAR Schedule: (10/09/16) 09:00, 17:00] 10/05/16 16:00 gabapentin 300 mg PO Q8Hn ow [Last Rescheduled Dt/Tm: 10/06/16 0:00:00 [employer]] [eMAR Schedule: (10/09/16) 00:00, 08:00, 16:00] 10/06/16 11:30 levothyroxine 75 microgra m PO Daily [Last Rescheduled Dt/Tm: 10/06/16 11:30:00 [employer]] [eMAR Schedule: (10/09/16) 06:30] [Future Dose: 10/10/16 06:30] 10/06/16 9:00 metoprolol (metoprolol tar trate) 25 mg PO Q12H [eMAR Schedule: (10/09/16) 09:00] [Future Dose: 10/09/16 21:00] 10/06/16 11:30 pantoprazole (Protonix) 4 0 mg PO Daily [eMAR Schedule: (10/09/16) 07:30] [Future Dose: 10/10/16 07:30] 10/07/16 17:00 rivaroxaban (Xarelto) 20 mg PO QPM [eMAR Schedule: (10/09/16) 17:00] [Future Dose: 10/10/16 17:00] 10/06/16 9:00 sertraline 50 mg PO Daily [eMAR Schedule: (10/09/16) 09:00] [Future Dose: 10/10/16 09:00] 10/05/16 22:54 tamsulosin (Flomax) 0.4 m g PO After Breakfast [Last Rescheduled Dt/Tm: 10/06/16 8:30:00 [employer]] [eMAR Schedule: (10/09/16) 08:30] [Future Dose: 10/10/16 08:30] Unscheduled Meds: None PRN Meds (1): 10/07/16 23:46 melatonin 3 mg PO Bedtime One Time Meds (1): 10/08/16 23:12 (Completed) trazodone 50 mg PO ONCE Continuous Infusions: None Objective: Vitals and Temp: Vitals Tmp(F) Pulse BP RR SpO2 FIO2 10/09 07:27 98.0 70 150/78 1 8 96 2.0L/m 10/09 04:34 ---- 67 144/80 - - 97 1.0L/m 10/09 04:15 97.5 67 168/85 1 6 95 1.0L/m 10/08 23:34 97.5 70 147/77 1 6 95 1.0L/m 10/08 21:14 ---- --- ----- - - 96 --- 24 Hr Tmax: 98.0F (36.67c) at 10/09 07:2 7 Vital Signs are the last 5 in the past 48 hours. Physical Exam Gen: NAD Pulm: nonlabored respirations CV: regular rate and rhythm Abd: soft, appropriately TTP, incision c/d/i. PERRY drain with serosanguinous output. 24hr Labs 10/09 0403 Glucose Lvl 113 H BUN 25 H Creatinine Lvl 0.91 Sodium Lvl 135 Potassium Lvl 4.4 Chloride Lvl 102 CO2 25 AGAP 12.4 Calcium Lvl 8.9 eGFR 84 WBC 8.5 RBC 4.08 L Hgb 12.3 L Hct 36.6 L MCV 89.7 MCH 30.1 MCHC 33.5 RDW 16.0 H Platelet 153 MPV 8.6 10/08 0824 Glucose Lvl 115 H BUN 36 H Creatinine Lvl 1.16 Sodium Lvl 133 L Potassium Lvl 4.0 Chloride Lvl 99 CO2 25 AGAP 13.0 Calcium Lvl 8.2 L eGFR 63 WBC 9.2 RBC 4.07 L Hgb 12.2 L Hct 36.8 L MCV 90.4 MCH 29.9 MCHC 33.1 RDW 16.2 H Platelet 120 L MPV 8.4 Segs 80.4 H Monocytes 6.3 Lymphocytes 10.3 L Eosinophils 2.7 Basophils 0.3 Segs-Bands # 7.4 Lymphocytes # 1.0 Monocytes # 0.6 Eosinophils # 0.2 Assessment/Plan: Pt. is a 71 year old male with PMH of afib on Xarelto and perforated diverticulitis s/p Humera's with subsequent colostomy takedown who developed multiple ventral incisional hernias now s/p open VIHR 10/05. s/p open VIHR - Remains afebrile, VSS - Leukocytosis resolved - Tolerating regular diet, passing flatu s, +BM - Abdominal pain well controlled on curr ent regimen- APMS signed off. - PERRY output 305 ml, serosanguinous - Encourage ambulation with help. PT on board - pending clearance before discharge - Encourage IS use. Wean from nasal chai tricia. Confusion - Resolved - Limit narcotic use Urinary retention - Resolved, harry 10/07. Able to void spo ntaneously - On Flomax LOIS - Resolved, Cr 0.91 - UOP adequate History of Afib - On telemetry - Home amiodarone, metoprolol and Xarelt o resumed Ppx: Lovenox subQ Dispo - continue current care. Anticipate d/c once off supplemental O2 and cleared by PT Extracted from:Title: APMS Consult Note Author: Javan Harrell DO Date: 10/05/16 Impression and Plan Diagnosis Orders Education and Follow-up: Counseled: Regarding treatment, Regarding medications. 71M w/ bowel obstruction s/p open ventra l hernia repair 2. Start -Acetaminophen 1g q68h -Tramadol 100mg q6h -Gabapentin 300mg q8h -Celecoxib 200mg q12h -Oxycodone 5/10mg prn APMS will follow. Please call [phone] with questions. 10/09/2016 [facility] Extracted from:Title: Amor Fu discharge summary Author: Jack Suarez MD Date: 09/12/16 Discharge Summary Name: Simon Hairston Record Number: [id number] Attending Physician: Santy Parnell MD Admission Date: [...] course: 71yo male with history of perforated div erticulitis, long's procedure and colostomy takedown over 10 [...] Oscar. CARLOS Suarez PGY1, General Surgery Extracted from:Title: Amor Fu progress note Author: Rosibel Vogel (Fellow) DO Date: 09/12/16 Impression and Plan 71 M with PMH of perforated dierticuliti s s/p humera's procedure and colostomy takedown and obesity s/p [...] May resume Xarelto in the meantime Extracted from:Title: General Admission H&P * Author: Estevan Maharaj (Fellow) Date: 09/07/16 Impression and Plan 71 M with 2 incisional hernias, concern for inferior hernia with transition however on exam reduces with palpation Admit plan Keep NPO with IVF resuscitation and f/u labs Will remove all the fluid within the lab band, and plan to place NGT Should pt clinical course worsen or bowel obstruction not resolve will plan for surgical exploration 09/12/2016 [facility] Plan of Care No Data Provided for This Section Social History Social History Date Source Social History TypeResponse Alcohol Current, Type Beer. Frequency: 1-2 times per week. Started age 68 Years. Alcohol use interferes with work or home: No. Drinks more than intended: No. Others hurt by drinking: No. Ready to change: Yes. Household alcohol concerns: Yes. Employment/School Status: Retired. Exercise Exercise frequency: Daily. Self assessment: Poor condition. Exercise type: Walking. Sexual Sexual orientation: Heterosexual. Substance Abuse Use: None. Smoking Status Former smoker; Type: Chewing tobacco; Previous treatment: None; Exposure to Tobacco Smoke None; Cigarette Smoking Last 365 Days No; Reg Smoking Cessation Counseling No; Number of years: 32; 1 entered on: 06/02/19 1PT USES CHEWING TOBACCO 05/27 [facility] Social History TypeResponse Alcohol Current, Type Beer. Frequency: 1-2 times per week. Started age 68 Years. Alcohol use interferes with work or home: No. Drinks more than intended: No. Others hurt by drinking: No. Ready to change: Yes. Household alcohol concerns: Yes. Employment/School Status: Retired. Exercise Exercise frequency: Daily. Self assessment: Poor condition. Exercise type: Walking. Sexual Sexual orientation: Heterosexual. Substance Abuse Use: None. Smoking Status Former smoker; Exposure to Tobacco Smoke None; Cigarette Smoking Last 365 Days Yes; Reg Smoking Cessation Counseling Yes entered on: 10/07/18 07/24/2018 [facility] Social History TypeResponse Alcohol Current, Type Beer. Frequency: 1-2 times per week. Started age 68 Years. Alcohol use interferes with work or home: No. Drinks more than intended: No. Others hurt by drinking: No. Ready to change: Yes. Household alcohol concerns: Yes. Employment/School Status: Retired. Exercise Exercise frequency: Daily. Self assessment: Poor condition. Exercise type: Walking. Sexual Sexual orientation: Heterosexual. Substance Abuse Use: None. Smoking Status Former smoker; Exposure to Tobacco Smoke None; Cigarette Smoking Last 365 Days Yes; Reg Smoking Cessation Counseling Yes entered on: 10/07/18 07/24/2018 [facility] Social History TypeResponse Substance Abuse Use: None. Sexual Sexual orientation: [...] Number of years: 32; entered on: 08/30/17 08/14/2017 [facility] Social History TypeResponse Substance Abuse Use: None. Sexual Sexual orientation: [...] Number of years: 32; entered on: 08/30/17 08/14/2017 [facility] Social History TypeResponse Substance Abuse Use: None. Sexual Sexual orientation: [...] Number of years: 32; 1 entered on: 09/30/18 1PT USES CHEWING TOBACCO 10/07 [facility] Deshawn Family History No Data Provided for This Section Advance Directives No Data Provided for This Section Functional Status No Data Provided for This Section
--- OUTSIDE RECORDS SUMMARY | 2020-01-19 13:50 | XMS REPORT | Summary of Care ---
Author Author [facility] Organization [facility] Address Unknown Phone Unavailable Encounter LAUREN Renee(GERARDO) [id number] Date(s): 04/23/19 - 05/22/19 [facility] [address] [place] [id number] [phone] Discharge Disposition: Home or Self Care Attending [...] Last 365 Days Yes; Reg Smoking Cessation Junior Linux Administrator ing Yes entered on: 10/07/18 Assessment and Plan No data available for this section
--- OUTSIDE RECORDS SUMMARY | 2020-01-19 13:50 | XMS REPORT | Summary of Care ---
Author Author [facility] Organization [facility] Address Unknown Phone Unavailable Encounter LAUREN Renee(GERARDO) [id number] Date(s): 06/11/19 - 07/10/19 [facility] [address] [place] [id number] Discharge Disposition: Home or Self Care Attending [...]
--- OUTSIDE RECORDS SUMMARY | 2020-01-19 13:50 | XMS REPORT | Summary of Care ---
Author Author [facility] Organization [facility] Address Unknown Phone Unavailable Encounter LAUREN Renee(GERARDO) [id number] Date(s): 10/06/18 - 10/10/18 [facility] [address] [place] [address]- Discharge Disposition: Home or Self Care Attending Physician: Cm Lowe MD Admitting Physician: Cm Lowe MD Vital Signs 1 2 3 Most recent to oldest [Reference Range]: 170.18 cm (10/06/18 9:08 PM) Height 98 DegF (10/10/18 4:05 PM) 98 DegF (10/10/18 12:01 PM) 97.9 DegF (10/10/18 8:17 AM) Temperature Oral [96.4-99.1 DegF] 129/72 mmHg (10/10/18 4:05 PM) 115/75 mmHg (10/10/18 12:01 PM) 130/71 mmHg (10/10/18 8:17 AM) Blood Pressure [90-140/60-90 mmHg] 16 BRMIN (10/10/18 4:05 PM) 16 BRMIN (10/10/18 12:01 PM) 16 BRMIN (10/10/18 8:17 AM) Respiratory Rate [14-20 BRMIN] 75 bpm (10/10/18 4:05 PM) 82 bpm (10/10/18 12:01 PM) 85 bpm (10/10/18 8:17 AM) Peripheral Pulse Rate [60-100 bpm] 104.545 kg (10/06/18 9:08 PM) Weight 36.1 m2 (10/06/18 9:08 PM) Body Mass Index Problem List Condition [...] Substance Reaction Severity Status NKDA Active Medications RN-DO NOT give 16:30 vanc on 10/08 till trough drawn RN-DO NOT give 16:30 vanc on 10/08 till trough drawn, Attn:RN, Drug form : MISC, Route: MISC, ONCE, 10/08/18 15:00:00 BABBITTER, Stop date: 10/08/18 15:00:[address] Start Date: 10/08/18 Stop Date: 10/08/18 Status: Completed vanco trough reminder prior to 9am dose vanco trough reminder prior to 9am dose, reminder, Drug form: MISC, Route: MIS C, ONCE, 10/10/18 8:30:00 BABBITTER, Stop date: 10/10/18 8:30:00 BABBITTER Start Date: 10/10/18 Stop Date: 10/09/18 Status: Deleted acetaminophen 650 mg, 2 tab, Route: PO, Drug form: TAB, Q4H, Dosing Weight 104.545, kg, PRN Fo r Temp > 100.4 F, Start date: 10/07/18 1:31:00 BABBITTER, Duration: 30 day, Stop date: 11/06/18 1:30:00 CDT Notes: Do not exceed 4 gm/day. (Same as: Tylenol) Start Date: 10/07/18 Stop Date: 10/10/18 Status: Discontinued albuterol 2.49 mg, 3 mL, Route: NEB, Drug form: SOLN, RQID, Start date: 10/07/18 11:00:00 BABBITTER, Duration: 30 day, Stop date: 11/06/18 7:00:00 CDT Notes: SEE RT DOCUMENTATION (Same as: Proventil) Start Date: 10/07/18 Stop Date: 10/10/18 Status: Discontinued albuterol 2.49 mg, 3 mL, Route: NEB, Drug form: SOLN, Q6H, PRN Shortness of breath, Start date: 10/07/18 7:31:00 BABBITTER, Duration: 30 day, Stop date: 11/06/18 7:30:00 CDT Notes: SEE RT DOCUMENTATION (Same as: Proventil) Start Date: 10/07/18 Stop Date: 10/10/18 Status: Discontinued carbidopa-levodopa 25 mg-100 mg oral tablet 2 tab, Route: PO, Drug Form: TAB, Dosing Weight 104.545, kg, BID, Start date: 9:00:00 BABBITTER, Duration: 30 day, Stop date: 11/05/18 17:00:00 CDT Notes: Take with milk or food. (Same As: Sinemet) Start Date: 10/07/18 Stop Date: 10/10/18 Status: Discontinued carbidopa-levodopa 25 mg-100 mg oral tablet 2 tab, PO, BID, 0 Refill(s) Start Date: 10/07/18 Status: Ordered gabapentin 600 mg, 2 cap, Route: PO, Drug form: CAP, Q6H, Dosing Weight 104.545, kg, Start date: 10/07/18 12:00:00 BABBITTER, Duration: 30 day, Stop date: 11/06/18 6:00:00 CDT Notes: (Same as: Neurontin) Start Date: 10/07/18 Stop Date: 10/10/18 Status: Discontinued gabapentin 600 mg, PO, QID, 0 Refill(s) Start Date: 10/07/18 Status: Ordered Levaquin 750 mg oral tablet 750 mg = 1 tab, PO, Q24H, X 2 day, # 2 tab, 0 Refill(s) Start Date: 10/10/18 Stop Date: 10/12/18 Status: Completed levofloxacin 750 mg, 150 mL, Route: IV, Drug form: SOLN, Q24H, Dosing Weight 104.545, kg, Sta rt date: 10/07/18 3:00:00 BABBITTER, Duration: 30 day, Stop date: 11/05/18 3:00:00 CDT , ABX Indication: Pneumonia Notes: (Same as:Levaquin) Start Date: 10/07/18 Stop Date: 10/10/18 Status: Discontinued levothyroxine 125 microgram, 1 tab, Route: PO, Drug form: TAB, Q630AM, Dosing Weight 104.545, kg, Start date: 10/08/18 6:30:00 BABBITTER, Duration: 30 day, Stop date: 11/06/18 6:30 :00 CDT Notes: Take 1 hour before or 2 hours after meal; Enteral feeds may interefere wi th the absorption of this medication. (Same as:Levothroid) Start Date: 10/08/18 Stop Date: 10/10/18 Status: Discontinued levothyroxine 125 microgram, Daily, 0 Refill(s) Start Date: 10/07/18 Status: Ordered ondansetron 4 mg, Route: IVP, Q8H, Dosing Weight 104.545, kg, PRN Nausea & Vomiting, Start date: 10/07/18 1:31:00 BABBITTER, Duration: 30 day, Stop date: 11/06/18 1:30:00 CDT Start Date: 10/07/18 Stop Date: 10/07/18 Status: Deleted pantoprazole 40 mg, 1 tab, Route: PO, Drug form: ECTAB, Daily, Dosing Weight 104.545, kg, Sta rt date: 10/07/18 9:00:00 BABBITTER, Duration: 30 day, Stop date: 11/05/18 9:00:00 CDT Notes: Tablet should not be chewed or crushed.(Same as: Protonix) Start Date: 10/07/18 Stop Date: 10/10/18 Status: Discontinued pantoprazole 40 mg oral enteric coated tablet 40 mg = 1 tab, PO, Daily, 0 Refill(s) Start Date: 10/07/18 Status: Ordered ProAir HFA 90 mcg/inh inhalation aerosol with adapter 2 puff, INHALER, Q6H, PRN for wheezing, # 8.5 gm, 0 Refill(s) Start Date: 10/07/18 Stop Date: 10/10/18 Status: Discontinued ProAir HFA 90 mcg/inh inhalation aerosol with adapter 180 microgram, 2 puff, Route: INHALER, Drug Form: AERO/A, Dosing Weight 104.545, kg, Q6H, PRN Wheezing, Start date: 10/07/18 7:22:00 BABBITTER, Duration: 30 day, Stop date: 11/06/18 7:21:00 CDT Start Date: 10/07/18 Stop Date: 10/07/18 Status: Deleted Pulmicort Respules 0.5 mg, 2 mL, Route: NEB, Drug form: SUSP, RBID, Start date: 10/07/18 7:31:00 CS T, Duration: 30 day, Stop date: 11/05/18 20:00:00 CDT Notes: (Same As: Pulmicort) Start Date: 10/07/18 Stop Date: 10/10/18 Status: Discontinued Saline Flush 0.9% 10 mL, Route: IVP, Drug Form: INJ, Dosing Weight 104.545, kg, PRN, PRN Line Flus h, Start date: 10/06/18 21:35:00 BABBITTER, Duration: 30 day, Stop date: 11/05/18 22:3 4:00 CDT Notes: (Same as: BD Posiflush) Start Date: 10/06/18 Stop Date: 10/10/18 Status: Discontinued sertraline 100 mg, 1 tab, Route: PO, Drug form: TAB, Daily, Dosing Weight 104.545, kg, Star t date: 10/07/18 9:00:00 BABBITTER, Duration: 30 day, Stop date: 11/05/18 9:00:00 CDT Notes: (Same as: Zoloft) Start Date: 10/07/18 Stop Date: 10/10/18 Status: Discontinued sertraline 100 mg, PO, Daily, 0 Refill(s) Start Date: 10/07/18 Status: Ordered Symbicort 160/4.5 inhalation aerosol with adapter 2 puff, Route: INHALATION, Drug Form: AERO/A, Dosing Weight 104.545, kg, BID, St art date: 10/07/18 9:00:00 BABBITTER, Duration: 30 day, Stop date: 11/05/18 17:00:00 C DT Start Date: 10/07/18 Stop Date: 10/07/18 Status: Deleted Symbicort 160/4.5 inhalation aerosol with adapter 2 puff, INHALATION, BID, 0 Refill(s) Start Date: 10/07/18 Stop Date: 10/10/18 Status: Discontinued torsemide 20 mg, 1 tab, Route: PO, Drug form: TAB, Daily, Dosing Weight 104.545, kg, Start date: 10/07/18 9:00:00 BABBITTER, Duration: 30 day, Stop date: 11/05/18 9:00:00 CDT Notes: (Same As: Demadex) Start Date: 10/07/18 Stop Date: 10/10/18 Status: Discontinued torsemide 20 mg oral tablet 20 mg = 1 tab, PO, Daily, 0 Refill(s) Start Date: 10/07/18 Stop Date: 10/10/18 Status: Discontinued tramadol 50 mg oral tablet 50 mg = 1 tab, PO, Q6H, PRN Pain Score 4-6, 0 Refill(s) Start Date: 10/07/18 Status: Ordered tramadol 50 mg oral tablet 50 mg, 1 tab, Route: PO, Drug form: TAB, Q6H, Dosing Weight 104.545, kg, PRN Tex n Score 7-10, Start date: 10/07/18 7:22:00 BABBITTER, Duration: 30 day, Stop date: 7:21:00 CDT Notes: Not to exceed 400mg/day. (Same As: Ultram) Start Date: 10/07/18 Stop Date: 10/10/18 Status: Discontinued valsartan 80 mg, 1 tab, Route: PO, Drug form: TAB, BID, Dosing Weight 104.545, kg, Start d ate: 10/07/18 9:00:00 BABBITTER, Duration: 30 day, Stop date: 11/05/18 21:00:00 CDT Notes: Same as Diovan Start Date: 10/07/18 Stop Date: 10/10/18 Status: Discontinued valsartan 80 mg oral tablet 80 mg = 1 tab, PO, BID, 0 Refill(s) Start Date: 10/07/18 Stop Date: 10/10/18 Status: Discontinued vancomycin 1,000 mg, Route: IVPB, ONCE, Dosing Weight 104.545, kg, Priority: STAT, Start da te: 10/07/18 0:25:00 BABBITTER, Stop date: 10/07/18 0:25:00 BABBITTER, ABX Indication: Pneum onia Start Date: 10/07/18 Stop Date: 10/07/18 Status: Completed vancomycin + Sodium Chloride 0.9% IV 250 mL 1,000 mg, Route: IVPB, [id number], Start date: 10/08/18 21:00:00 BABBITTER, Duration: 30 day, Stop date: 11/07/18 9:00:00 CDT, ABX Indication: Skin/Soft Tissue Infection Notes: TIME CRITICAL MEDICATION(Same As: Vancocin)Infusion rate< 1000 mg: infuse over 1 [id number] - 1500 mg: infuse over 1.5 [id number] - 2000 mg: infuse over 2 hours> 2001 mg: infuse over 2.5 hoursFor adult patients only: Round to nearest 250 mg per Medical Staff approval MEDICATION WASTE Product Size: 1000 mgProduct Wasted: ___ mg Start Date: 10/08/18 Stop Date: 10/09/18 Status: Discontinued vancomycin + Sodium Chloride 0.9% IV 250 mL 1,500 mg, Route: IVPB, ONCE, Start date: 10/07/18 3:36:00 BABBITTER, Stop date: 3:36:00 BABBITTER, ABX Indication: Pneumonia Notes: TIME CRITICAL MEDICATION(Same As: Vancocin)Infusion rate< 1000 mg: infuse over 1 [id number] - 1500 mg: infuse over 1.5 [id number] - 2000 mg: infuse over 2 hours> 2001 mg: infuse over 2.5 hoursFor adult patients only: Round to nearest 250 mg per Medical Staff approval MEDICATION WASTE Product Size: 1000 mgProduct Wasted: ___ mg Start Date: 10/07/18 Stop Date: 10/07/18 Status: Completed vancomycin + Sodium Chloride 0.9% IV 250 mL 1,500 mg, Route: IVPB, [id number], Start date: 10/07/18 16:30:00 BABBITTER, Duration: 30 day, Stop date: 11/06/18 4:30:00 CDT, ABX Indication: Pneumonia Notes: TIME CRITICAL MEDICATION(Same As: Vancocin)Infusion rate< 1000 mg: infuse over 1 [id number] - 1500 mg: infuse over 1.5 [id number] - 2000 mg: infuse over 2 hours> 2001 mg: infuse over 2.5 hoursFor adult patients only: Round to nearest 250 mg per Medical Staff approval MEDICATION WASTE Product Size: 1000 mgProduct Wasted: ___ mg Start Date: 10/07/18 Stop Date: 10/08/18 Status: Discontinued Vancomycin Pharmacy Dosing 1 gm, Route: IV, Q12H, Dosing Weight 104.545, kg, Start date: 10/07/18 9:00:[address], Duration: 30 day, Stop date: 11/05/18 21:00:00 CDT, ABX Indication: Pneumoni a Start Date: 10/07/18 Stop Date: 10/07/18 Status: Deleted Xarelto 20 mg, 1 tab, Route: PO, Drug form: TAB, QPM, Dosing Weight 104.545, kg, Start d ate: 10/07/18 17:00:00 BABBITTER, Duration: 30 day, Stop date: 11/05/18 17:00:00 CDT Notes: (Same as: Xarelto)Administer with food Start Date: 10/07/18 Stop Date: 10/10/18 Status: Discontinued Xarelto 20 mg oral tablet 20 mg = 1 tab, PO, QPM, # 30 tab, 3 Refill(s) Start Date: 10/07/18 Stop Date: 10/10/18 Status: Discontinued Zosyn + Sodium Chloride 0.9% IV 100 mL 3.375 gm, Route: IV, [id number], Dosing Weight 104.545, kg, Start date: 10/07/18 6:0 0:00 BABBITTER, Duration: 30 day, Stop date: 11/05/18 22:00:00 CDT, ABX Indication: Pn eumonia Notes: (Same as: Zosyn)Dosing based on Piperacillin component MEDICATION WA JASMIN Product Size: 3375 mgProduct Wasted: ___ mg Start Date: 10/07/18 Stop Date: 10/10/18 Status: Discontinued Results ELECTROLYTES Most recent to 1 2 oldest [Reference Range]: Sodium Lvl [135-145 140 mEq/L mEq/L] (10/06/18 10:27 PM) Potassium Lvl 4.4 mEq/L [3.5-5.1 mEq/L] (10/06/18 10:27 PM) Chloride Lvl [95-109 109 mEq/L mEq/L] (10/06/18 10:27 PM) CO2 [24-32 mEq/L] 29 mEq/L (10/06/18 10:27 PM) AGAP [10.0-20.0 6.4 mEq/L mEq/L] *LOW* (10/06/18 10:27 PM) CHEM PANEL Most recent to 1 2 oldest [Reference Range]: Creatinine Lvl 1.37 mg/dL 1.06 mg/dL [0.50-1.40 mg/dL] (10/08/18 6:04 PM) (10/06/18 10:27 PM) eGFR 51 mL/min/1.73m2 1 69 mL/min/1.73m2 2 *NA* *NA* (10/08/18 6:04 PM) (10/06/18 10:27 PM) BUN [7-22 mg/dL] 25 mg/dL 17 mg/dL *HI* (10/06/18 10:27 PM) (10/08/18 6:04 PM) B/C Ratio [6-25] 16 (10/06/18 10:27 PM) Glucose Lvl [70-99 143 mg/dL mg/dL] *HI* (10/06/18 10:27 PM) Total Protein 7.1 g/dL [6.4-8.4 g/dL] (10/06/18 10:27 PM) Albumin Lvl [3.5-5.0 3.0 g/dL g/dL] *LOW* (10/06/18 10:27 PM) Globulin [2.7-4.2 4.1 g/dL g/dL] (10/06/18 10:27 PM) A/G Ratio [0.7-1.6] 0.7 (10/06/18 10:27 PM) Calcium Lvl 8.1 mg/dL [8.5-10.5 mg/dL] *LOW* (10/06/18 10:27 PM) ALT [0-65 unit/L] 23 unit/L (10/06/18 10:27 PM) AST [0-37 unit/L] 13 unit/L (10/06/18 10:27 PM) Alk Phos [39-136 76 unit/L unit/L] (10/06/18 10:27 PM) Bili Total [0.2-1.3 0.4 mg/dL mg/dL] (10/06/18 10:27 PM) Lactic Acid Lvl 1.2 mMol/L [0.5-2.2 mMol/L] (10/06/18 10:27 PM) Procalcitonin Lvl <0.05 ng/mL [0.00-0.10 ng/mL] (10/06/18 10:27 PM) 1Result Comment: The eGFR is calculated using [...] be mul tiplied by the estimated BMI. CARDIAC ENZYMES Most recent to 1 2 oldest [Reference Range]: Total CK [12-191 45 unit/L unit/L] (10/06/18 10:27 PM) Troponin-I <0.02 ng/mL [0.00-0.40 ng/mL] (10/06/18 10:27 PM) TOXICOLOGY Most recent to 1 2 oldest [Reference Range]: Kikeo Tr TND 1600 *NA* (10/08/18 3:52 PM) Kikeo Tr 25.7 ug/ml *NA* (10/08/18 3:52 PM) URINE AND STOOL Most recent to 1 2 oldest [Reference Range]: UA Turbidity [Clear] Slight *ABN* (10/06/18 11:48 PM) UA Color [Yellow] Yellow *NA* (10/06/18 11:48 PM) UA pH [5.0-8.0] 5.0 (10/06/18 11:48 PM) UA Spec Grav 1.020 [<=1.030] (10/06/18 11:48 PM) UA Glucose Negative [Negative] *NA* (10/06/18 11:48 PM) UA Blood [Negative] Negative (10/06/18 11:48 PM) UA Ketones Negative [Negative] *NA* (10/06/18 11:48 PM) UA Protein [Negative 100 mg/dL mg/dL] *ABN* (10/06/18 11:48 PM) UA Urobilinogen <=1.0 mg/dL [0.1-1.0 mg/dL] *NA* (10/06/18 11:48 PM) UA Bili [Negative] Negative *NA* (10/06/18 11:48 PM) UA Leuk Est Negative [Negative] (10/06/18 11:48 PM) UA Nitrite Negative [Negative] (10/06/18 11:48 PM) UA WBC [0-5 /HPF] 1 /HPF (10/06/18 11:48 PM) UA RBC [0-2 /HPF] 2 /HPF (10/06/18 11:48 PM) UA Sq Epi [Few /LPF] Occasional /LPF *NA* (10/06/18 11:48 PM) IMMUNOLOGY Most recent to 1 2 oldest [Reference Range]: Prealbumin 12.9 mg/dL [18.0-45.0 mg/dL] *LOW* (10/09/18 8:15 AM) HEMATOLOGY Most recent to 1 2 oldest [Reference Range]: WBC [3.7-10.4 K/CMM] 12.6 K/CMM *HI* (10/06/18 9:50 PM) RBC [4.70-6.10 4.37 M/CMM M/CMM] *LOW* (10/06/18 9:50 PM) Hgb [14.0-18.0 g/dL] 10.8 g/dL *LOW* (10/06/18 9:50 PM) Hct [42.0-54.0 %] 33.9 % *LOW* (10/06/18 9:50 PM) MCV [80.0-94.0 fL] 77.6 fL *LOW* (10/06/18 9:50 PM) MCH [27.0-31.0 pg] 24.7 pg *LOW* (10/06/18 9:50 PM) MCHC [32.0-36.0 31.8 g/dL g/dL] *LOW* (10/06/18 9:50 PM) RDW [11.5-14.5 %] 18.4 % *HI* (10/06/18 9:50 PM) MPV [7.4-10.4 fL] 7.5 fL (10/06/18 9:50 PM) Platelet [133-450 251 K/CMM K/CMM] (10/06/18 9:50 PM) Segs [45.0-75.0 %] 73.2 % (10/06/18 9:50 PM) Lymphocytes 10.2 % [20.0-40.0 %] *LOW* (10/06/18 9:50 PM) Monocytes [2.0-12.0 9.9 % %] (10/06/18 9:50 PM) Eosinophils [0.0-4.0 6.2 % %] *HI* (10/06/18 9:50 PM) Basophils [0.0-1.0 0.5 % %] (10/06/18 9:50 PM) Neutrophils # 9.2 K/CMM [1.5-8.1 K/CMM] *HI* (10/06/18 9:50 PM) Lymphocytes # 1.3 K/CMM [1.0-5.5 K/CMM] (10/06/18 9:50 PM) Monocytes # [0.0-0.8 1.3 K/CMM K/CMM] *HI* (10/06/18 9:50 PM) Eosinophils # 0.8 K/CMM [0.0-0.5 K/CMM] *HI* (10/06/18 9:50 PM) Basophils # [0.0-0.2 0.1 K/CMM K/CMM] (10/06/18 9:50 PM) Microcyte [None 1+ Seen] *ABN* (10/06/18 9:50 PM) PT [12.0-14.7 19.4 seconds seconds] *HI* (10/06/18 9:50 PM) INR [0.85-1.17] 1.68 *HI* (10/06/18 9:50 PM) PTT [22.9-35.8 56.8 seconds seconds] *HI* (10/06/18 9:50 PM) Microbiology Reports TEST: Culture: Wound/Abscess w/Gram Stain STATUS: Auth (Verified) BODY SITE: Abdomen SOURCE: Wound, Non Surgical COLLECTED DATE/TIME: 10/08/18 5:31 PM FINAL REPORT No Growth STAIN REPORT No Wbc'S Or Organisms Seen Immunizations No data available for this section [...] Last 365 Days Yes; Reg Smoking Cessation Business Objects Developer ing Yes entered on: 10/07/18 Assessment and Plan Extracted from: Title: Clinical Document Author: Colin Hairston MD te: 10/10/18 Wound Care Progress Note Colin Hairston MD, PA Subjective: Patient seen, examined and events noted. Objective: Vitals and Temp: VitalsTmp(F)[id number] 10/10 12:[id number]--- 10/10 08:[id number]--- 10/10 04:[id number]--- 10/10 00:[id number]--- 10/09 21:38 1699 21% 24 Hr Tmax: 98.5F (36.94c) at 10/09 16:4 5Vital Signs are the last 5 in the past 48 hours. 24hr Labs 10/09 0815 [id number] L Diagnostics: PHYSICAL EXAMINATION Chest: Clear, no rhonchi Heart: S1, S2, regular rhythm. 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 Extracted from: Title: [facility] [employer] History and Author: Cheyenne Christianson Ch, MD Date: 10/07/18 Physical Patient is a 73 year old manwith [...] further recomme ndations. Ordered: Admit/Condition, 10/07/18 0:27:00 BABBITTER, Status: Inpatient, Telemetry Capable Location, Expected LOS: 3 or Greater Midnights, Cheyenne Christianson MD, Admit Review/Approve Yes, Isolation: Contact, SOB (shortness of breath) | PNA (pneumonia) | Acute sepsis 2.PNA (pneumonia)(J18.9) - HCAP (recent hospitalizations) - vancomycin, levofloxacin and zosyn - Consult ID. Appreciate further recomme ndations. Ordered: Admit/Condition, 10/07/18 0:27:00 BABBITTER, Status: Inpatient, Telemetry Capable Location, Expected LOS: [...] moremidnights pending clinical improvement. Cheyenne Christianson MD Compliance Engineer"
--- OUTSIDE RECORDS SUMMARY | 2020-01-19 13:50 | XMS REPORT | Summary of Care ---
Author Author [facility] Organization [facility] Address Unknown Phone Unavailable Encounter LAUREN Renee(GERARDO) [id number] Date(s): 01/01/19 - 01/30/19 [facility] [address] [place] [id number] Discharge Disposition: Home or Self [...] Last 365 Days Yes; Reg Smoking Cessation Medical Bill Processor ing Yes entered on: 10/07/18 Assessment and Plan No data available for this section
--- OUTSIDE RECORDS SUMMARY | 2020-01-19 13:50 | XMS REPORT | Summary of Care ---
Author Author [facility] Organization [facility] Address Unknown Phone Unavailable Encounter LAUREN Renee(GERARDO) [id number] Date(s): 06/04/19 - 06/05/19 [facility] [address] [employer] provided by [facility] [place] [address]- Discharge Disposition: Home or Self Care Attending Physician: Fabien Siddiqui MD Admitting Physician: Fabien Siddiqui MD Referring Physician: Fabien Siddiqui MD Vital Signs 1 2 3 Most recent to oldest [Reference Range]: 167.64 cm (06/02/19 8:00 PM) 167.64 cm (06/02/19 12:23 PM) Height 98.0 DegF (06/05/19 7:27 AM) 98.1 DegF (06/05/19 4:25 AM) 98.2 DegF (06/04/19 11:25 PM) Temperature Oral [96.4-99.1 DegF] 125/75 mmHg (06/05/19 7:27 AM) 110/68 mmHg (06/05/19 4:25 AM) 135/78 mmHg (06/04/19 11:25 PM) Blood Pressure [90-140/60-90 mmHg] 16 BRMIN (06/05/19 7:27 AM) 20 BRMIN (06/05/19 4:25 AM) 20 BRMIN (06/04/19 11:25 PM) Respiratory Rate [14-20 BRMIN] 92 bpm (06/05/19 7:27 AM) 92 bpm (06/05/19 4:25 AM) 93 bpm (06/04/19 11:25 PM) Peripheral Pulse Rate [60-100 bpm] 118 kg (06/02/19 8:00 PM) 118 kg (06/02/19 12:23 PM) Weight 41.99 m2 (06/02/19 8:00 PM) 41.99 m2 (06/02/19 12:23 PM) Body Mass Index Problem List Condition [...] PO, Drug form: TAB, Q6H, Dosing Weight 118, kg, Start da te: 06/02/19 18:00:00 CDT, Duration: 30 day, Stop date: 07/02/19 12:00:00 [employer], > 67 kg; Pediatric Dosing, 0 Notes: Max acetaminophen 4000 mg/day (4 gm/day). (Same as: Tylenol Extra Streng ) Start Date: 06/02/19 Stop Date: 06/05/19 Status: Discontinued acetaminophen 1,000 mg, 2 tab, Route: PO, Drug form: TAB, PRE OP, Start date: 06/01/19 23:00:0 0 CDT, Duration: 1 day, Stop date: 06/02/19 22:59:00 CDT, 0 Notes: Max acetaminophen 4000 mg/day (4 gm/day). (Same as: Tylenol Extra Streng ) Start Date: 06/01/19 Stop Date: 06/05/19 Status: Discontinued acetaminophen 500 mg oral tablet 1,000 mg = 2 tab, PO, Q6H, PRN Pain Score 4-6, X 14 day, # 24 tab, 0 Refill(s) Start Date: 06/05/19 Stop Date: 06/19/19 Status: Ordered acetaminophen-hydrocodone 325 mg-10 mg oral tablet TAKE 1 TABLET BY MOUTH TWICE A DAY NEEDED FOR PAIN FOR BREAKTHROUGH PAIN. Start Date: 06/04/19 Status: Ordered ANES flumazenil 0.2 mg, 2 mL, Route: IVP, Drug form: INJ, PRN, Dosing Weight 118, kg, PRN Benzod iazepine Reversal, Initial dose, Start date: 06/02/19 14:41:00 CDT, Duration: 1 day, Stop date: 06/03/19 14:40:00 CDT, 0 Notes: (Same as: Romazicon) Start Date: 06/02/19 Stop Date: 06/02/19 Status: Discontinued ANES hydrALAZINE 10 mg, 0.5 mL, Route: IVP, Drug form: INJ, Q20Min, Dosing Weight 118, kg, PRN El evated BP, Start date: 06/02/19 14:41:00 CDT, Duration: 2 doses or times, Stop d ate: Limited # of times, 0 Notes: (Same as: Apresoline)Push over 5 minutes Start Date: 06/02/19 Stop Date: 06/02/19 Status: Discontinued ANES HYDROmorphone 0.5 mg, 0.25 mL, Route: IVP, Drug form: INJ, Q5Min, Dosing Weight 118, kg, PRN P ain Score 7-10, Start date: 06/02/19 14:41:00 CDT, Duration: 4 doses or times, S top date: 06/03/19 0:00:00 CDT, 0 Notes: Same as Dilaudid Start Date: 06/02/19 Stop Date: 06/02/19 Status: Discontinued ANES labetalol 10 mg, 2 mL, Route: IVP, Drug form: INJ, Q5Min, Dosing Weight 118, kg, PRN Bearden mary kate BP, Start date: 06/02/19 14:41:00 CDT, Duration: 5 doses or times, Stop date : 06/03/19 0:00:00 CDT, 0 Start Date: 06/02/19 Stop Date: 06/02/19 Status: Discontinued ANES naloxone 0.4 mg, 1 mL, Route: IVP, Drug form: INJ, Q2MIN, Dosing Weight 118, kg, PRN Narc otic Reversal, Start date: 06/02/19 14:41:00 CDT, Duration: 8 doses or times, St op date: Limited # of times, 0 Notes: Same as Narcan Start Date: 06/02/19 Stop Date: 06/02/19 Status: Discontinued ANES ondansetron 4 mg, 2 mL, Route: IVP, Drug form: INJ, ONCE, Dosing Weight 118, kg, PRN Nausea & Vomiting, Start date: 06/02/19 14:41:00 CDT, 0 Notes: (Same as: Zofran) MEDICATION WASTE Product Size: 4 mgProduct Was mary kate: ___ mg Start Date: 06/02/19 Stop Date: 06/02/19 Status: Discontinued ANES oxyCODONE 5 mg immediate release tablet 5 mg, 1 tab, Route: PO, Drug form: TAB, Q4H, Dosing Weight 118, kg, PRN Pain Sco re 4-6, Start date: 06/02/19 14:41:00 CDT, Duration: 1 day, Stop date: 06/03/19 14:40:00 CDT, 0 Notes: (Same as: Roxicodone) Start Date: 06/02/19 Stop Date: 06/02/19 Status: Discontinued carbidopa-levodopa 50 mg-200 mg oral tablet, extended release 1 tab, Route: PO, Drug Form: ERTAB, Dosing Weight 118, kg, BID, Start date: 05/14 08/31 17:00:00 CDT, Duration: 30 day, Stop date: 07/02/19 9:00:00 [employer], 0 Notes: "Do Not Crush" Take with milk or food. (Same As: Sinemet CR) Start Date: 06/02/19 Stop Date: 06/05/19 Status: Discontinued ceFAZolin (ANES) Route: IV, Drug form: INJ, ONCE, Stop date: 06/02/19 15:05:00 CDT Start Date: 06/02/19 Stop Date: 06/02/19 Status: Completed codeine 15 mg, Route: PO, Drug form: TAB, Q4H, Dosing Weight 118, kg, PRN Pain Score 4-6 , Start date: 06/03/19 10:59:00 CDT, Duration: 30 day, Stop date: 07/03/19 10:58 :00 [employer], 0 Start Date: 06/03/19 Stop Date: 06/03/19 Status: Discontinued codeine 30 mg, 1 tab, Route: PO, Drug form: TAB, Q4H, Dosing Weight 118, kg, PRN, Start date: 06/03/19 10:59:00 CDT, Duration: 30 day, Stop date: 07/03/19 10:58:00 [employer], Pain Score 4-10, 0 Start Date: 06/03/19 Stop Date: 06/03/19 Status: Discontinued Dilaudid 0.2 mg, 0.1 mL, Route: IVP, Drug form: INJ, ONCE, Dosing Weight 118, kg, Priorit y: STAT, Start date: 06/04/19 15:07:00 CDT, Stop date: 06/04/19 15:07:00 CDT, 0 Start Date: 06/04/19 Stop Date: 06/04/19 Status: Completed ePHEDrine (ANES) Route: IV, Drug form: INJ, ONCE, Stop date: 06/02/19 15:20:00 CDT Start Date: 06/02/19 Stop Date: 06/02/19 Status: Completed ePHEDrine (ANES) Route: IV, Drug form: INJ, ONCE, Stop date: 06/02/19 15:45:00 CDT Start Date: 06/02/19 Stop Date: 06/02/19 Status: Completed fentaNYL (ANES) Route: IV, Drug form: INJ, ONCE, Stop date: 06/02/19 15:00:00 CDT Start Date: 06/02/19 Stop Date: 06/02/19 Status: Completed Flomax 0.4 mg, 1 cap, Route: PO, Drug form: CAP, After Breakfast, Dosing Weight 118, kg , Start date: 06/04/19 8:30:00 CDT, Duration: 30 day, Stop date: 07/03/19 8:30:0 0 [employer], 0 Notes: (Same As: Flomax) "Do Not Crush" Start Date: 06/04/19 Stop Date: 06/05/19 Status: Discontinued gabapentin 600 mg oral tablet TAKE 1 TABLET (600 MG TOTAL) BY MOUTH 4 (FOUR) TIMES A DAY. Start Date: 06/04/19 Status: Ordered heparin 5,000 unit, 1 mL, Route: SUB-Q, Drug form: INJ, PRE OP, Start date: 06/01/19 23: 00:00 CDT, Duration: 1 day, Stop date: 06/02/19 22:59:00 CDT, 0 Notes: porcine heparin Start Date: 06/01/19 Stop Date: 06/05/19 Status: Discontinued hydromorphone 0.5 mg, 0.25 mL, Route: IVP, Drug form: INJ, Q4H, Dosing Weight 118, kg, PRN [place] Score 7-10, Start date: 06/02/19 15:01:00 CDT, Duration: 5 day, Stop date: 15:00:00 CDT, 0 Notes: Same as Dilaudid Start Date: 06/02/19 Stop Date: 06/03/19 Status: Discontinued Lactated Ringers (Bolus) IV 1,000 mL, 1,000 ml/hr, Infuse Over: 1 hr, Route: IV, 1,000, Drug form: INJ, ONCE , Priority: STAT, Dosing Weight 118 kg, Start date: 06/03/19 16:13:00 CDT, Stop date: 06/03/19 16:13:00 CDT, 0 Start Date: 06/03/19 Stop Date: 06/03/19 Status: Completed Lactated Ringers Injection IV (ANES) 1000 mL Route: IV, Total Volume: 1,000, Start date: 06/02/19 13:53:00 CDT, Stop date: 14:53:00 CDT Start Date: 06/02/19 Stop Date: 06/02/19 Status: Completed Lactated Ringers IV 500 mL 500 mL, Rate: 125 ml/hr, Infuse over: 4 hr, Route: IV, Dosing Weight 118 kg, Tot al Volume: 500, Start date: 06/03/19 8:06:00 CDT, Duration: 30 day, Stop date: 09/02/18 8:05:00 [employer], 2.38, m2, 0 Start Date: 06/03/19 Stop Date: 06/03/19 Status: Discontinued levothyroxine 125 microgram, 1 tab, Route: PO, Drug form: TAB, Daily, Dosing Weight 118, kg, S tart date: 06/03/19 9:00:00 CDT, Duration: 30 day, Stop date: 07/02/19 9:00:[address], 0 Notes: Take 1 hour before or 2 hours after meal; Enteral feeds may interefere wi th the absorption of this medication. (Same as:Levothroid) Start Date: 06/03/19 Stop Date: 06/05/19 Status: Discontinued lidocaine (ANES) Route: IV, Drug form: INJ, ONCE, Stop date: 06/02/19 15:00:00 CDT Start Date: 06/02/19 Stop Date: 06/02/19 Status: Completed LR IV 1,000 mL 1,000 mL, Rate: 125 ml/hr, Infuse over: 8 hr, Route: IV, Dosing Weight 118 kg, T otal Volume: 1,000, Start date: 06/03/19 16:12:00 CDT, Duration: 30 day, Stop da te: 07/03/19 16:11:00 [employer], 2.38, m2, 0 Start Date: 06/03/19 Stop Date: 06/04/19 Status: Discontinued LR IV 1,000 mL 1,000 mL, Rate: 100 ml/hr, Infuse over: 10 hr, Route: IV, Dosing Weight 118 kg, Total Volume: 1,000, Start date: 06/04/19 7:46:00 CDT, Duration: 30 day, Stop da te: 07/04/19 7:45:00 [employer], 2.38, m2, 0 Start Date: 06/04/19 Stop Date: 06/05/19 Status: Discontinued Mefoxin + sterile water 20 mL 2 gm, Route: IV, PRE OP, Start date: 06/01/19 23:00:00 CDT, Duration: 1 day, Sto p date: 06/02/19 22:59:00 CDT, ABX Indication: Surgical Prophylaxis, 0 Notes: (Same As: Mefoxin) MEDICATION WASTE Product Size: 2000 mgProduct Wasted: ___ mg Start Date: 06/01/19 Stop Date: 06/05/19 Status: Discontinued midazolam (ANES) Route: IV, Drug form: SOLN, ONCE, Stop date: 06/02/19 15:00:00 CDT Start Date: 06/02/19 Stop Date: 06/02/19 Status: Completed multivitamin Daily, 0 Refill(s) Start Date: 05/27/19 Status: Ordered omeprazole 20 mg, Route: PO, Drug form: DRC, Daily, Dosing Weight 118, kg, Start date: 05/14 10/01 9:00:00 CDT, Duration: 30 day, Stop date: 07/02/19 9:00:00 [employer] Start Date: 06/03/19 Stop Date: 06/02/19 Status: Deleted omeprazole 20 mg oral delayed release capsule 20 mg = 1 cap, PO, Daily, # 30 cap, 0 Refill(s) Start Date: 05/27/19 Stop Date: 06/05/19 Status: Discontinued ondansetron (ANES) Route: IV, Drug form: INJ, ONCE, Stop date: 06/02/19 16:27:00 CDT Start Date: 06/02/19 Stop Date: 06/02/19 Status: Completed oxyCODONE 5 mg/5 mL oral solution 2.5 mg, 2.5 mL, Route: PO, Drug form: LIQ, Q6H, Dosing Weight 118, kg, PRN, Star t date: 06/03/19 15:00:00 CDT, Duration: 30 day, Stop date: 07/03/19 14:59:00 CS T, Pain Score 4-10, 0 Notes: (Same as: 'Roxicodone) Start Date: 06/03/19 Stop Date: 06/05/19 Status: Discontinued pantoprazole 40 mg oral enteric coated tablet 40 mg = 1 tab, PO, Daily, # 60 tab, 0 Refill(s) Start Date: 06/05/19 Stop Date: 08/04/19 Status: Ordered phenylephrine (ANES) Route: IV, Drug form: INJ, ONCE, Stop date: 06/02/19 15:05:00 CDT Start Date: 06/02/19 Stop Date: 06/02/19 Status: Completed Probiotic Formula PO, Daily, 0 Refill(s) Start Date: 05/27/19 Status: Ordered propofol (ANES) Route: IV, Drug form: INJ, ONCE, Stop date: 06/02/19 15:00:00 CDT Start Date: 06/02/19 Stop Date: 06/02/19 Status: Completed Protonix 40 mg, 1 tab, Route: PO, Drug form: ECTAB, Before Breakfast, Start date: 9 7:30:00 CDT, Duration: 30 day, Stop date: 07/02/19 7:30:00 [employer], 0 Notes: Tablet should not be chewed or crushed.(Same as: Protonix) Start Date: 06/03/19 Stop Date: 06/05/19 Status: Discontinued rocuronium (ANES) Route: IV, Drug form: INJ, ONCE, Stop date: 06/02/19 15:00:00 CDT Start Date: 06/02/19 Stop Date: 06/02/19 Status: Completed rocuronium (ANES) Route: IV, Drug form: INJ, ONCE, Stop date: 06/02/19 15:40:00 CDT Start Date: 06/02/19 Stop Date: 06/02/19 Status: Completed scopolamine 1 patch, Route: TOP, Drug form: ERFILM, PRE OP, Start date: 06/01/19 23:00:00 CD T, Duration: 1 day, Stop date: 06/02/19 22:59:00 CDT, 0 Notes: Change patch every 72 hours (Same as: Transderm-Scop) Start Date: 06/01/19 Stop Date: 06/05/19 Status: Discontinued sertraline 100 mg, 1 tab, Route: PO, Drug form: TAB, Daily, Dosing Weight 118, kg, Start da te: 06/03/19 9:00:00 CDT, Duration: 30 day, Stop date: 07/02/19 9:00:00 [employer], 0 Notes: (Same as: Zoloft) Start Date: 06/03/19 Stop Date: 06/05/19 Status: Discontinued sugammadex 200 mg, 2 mL, Route: IV, Drug form: SOLN, ONCALL, Start date: 06/02/19 22:00:00 CDT, Duration: 5 minutes, Stop date: 06/02/19 22:04:00 CDT, 0 Notes: (Same as: Bridion) Start Date: 06/02/19 Stop Date: 06/05/19 Status: Discontinued sugammadex (ANES) Route: IV, Drug form: SOLN, ONCE, Stop date: 06/02/19 16:27:00 CDT Start Date: 06/02/19 Stop Date: 06/02/19 Status: Completed Symbicort 160/4.5 inhalation aerosol with adapter 2 puff, Route: INHALATION, Drug Form: AERO/A, Dosing Weight 118, kg, RBID, Start date: 06/02/19 17:00:00 CDT, Stop date: 07/02/19 8:00:00 [employer], 0 Notes: (Same as: Symbicort)WASTE: Aerosol - Return to Pharmacy Start Date: 06/02/19 Stop Date: 06/05/19 Status: Discontinued tramadol 50 mg oral tablet 50 mg = 1 tab, PO, Q4H, PRN Pain 1-3/Temp > 100.4 F, X 10 day, # 12 tab, 0 Refill(s) Start Date: 06/05/19 Stop Date: 06/15/19 Status: Ordered Tums 500 mg, 1 tab, Route: CHEW, Drug form: CHEWTAB, Q1H, Dosing Weight 118, kg, PRN Indigestion, Start date: 06/04/19 23:27:00 CDT, Duration: 30 day, Stop date: 22:26:00 [employer], 0 Notes: (Same As: Tums)Calcium Carbonate 500 mg = 200 mg elemental calcium Dose = mg calcium carbonate ( mg elemental calcium) Start Date: 06/04/19 Stop Date: 06/05/19 Status: Discontinued valsartan 40 mg, 1 tab, Route: PO, Drug form: TAB, BID, Dosing Weight 118, kg, Start date: 06/02/19 17:00:00 CDT, Duration: 30 day, Stop date: 07/02/19 9:00:00 [employer], 0 Notes: Same as Diovan Start Date: 06/02/19 Stop Date: 06/03/19 Status: Discontinued valsartan 40 mg oral tablet 40 mg = 1 tab, PO, BID, # 180 tab, 0 Refill(s) Start Date: 05/27/19 Stop Date: 06/04/19 Status: Discontinued valsartan 80 mg oral tablet TAKE 1 TABLET BY MOUTH TWICE A DAY Start Date: 06/04/19 Status: Ordered vasopressin (ANES) Route: IV, Drug form: INJ, ONCE, Stop date: 06/02/19 15:10:00 CDT Start Date: 06/02/19 Stop Date: 06/02/19 Status: Completed vasopressin (ANES) Route: IV, Drug form: INJ, ONCE, Stop date: 06/02/19 15:45:00 CDT Start Date: 06/02/19 Stop Date: 06/02/19 Status: Completed Xarelto 20 mg, 1 tab, Route: PO, Drug form: TAB, QPM, Dosing Weight 118, kg, Start date: 06/03/19 17:00:00 CDT, Duration: 30 day, Stop date: 07/02/19 17:00:00 [employer], 0 Notes: (Same as: Xarelto)Administer with food Start Date: 06/03/19 Stop Date: 06/05/19 Status: Discontinued Results 1 2 3 Most recent to oldest [Reference Range]: 7.3 K/CMM (06/05/19 4:26 AM) 6.6 K/CMM (06/04/19 5:01 AM) 9.0 K/CMM *HI* (06/03/19 8:44 AM) Neutrophils # [1.5-8.1 K/CMM] 1.2 K/CMM (06/05/19 4:26 AM) 1.3 K/CMM (06/04/19 5:01 AM) 1.0 K/CMM (06/03/19 8:44 AM) Lymphocytes # [1.0-5.5 K/CMM] 0.7 K/CMM (06/05/19 4:26 AM) 0.7 K/CMM (06/04/19 5:01 AM) 0.9 K/CMM *HI* (06/03/19 8:44 AM) Monocytes # [0.0-0.8 K/CMM] 0.4 K/CMM (06/05/19 4:26 AM) 0.4 K/CMM (06/04/19 5:01 AM) 0.3 K/CMM (06/03/19 8:44 AM) Eosinophils # [0.0-0.5 K/CMM] 3 /LPF *HI* (06/04/19 12:16 AM) UA Trans Epi [<=0 /LPF] 50 mL/min/1.73m2 1 *NA* (06/05/19 4:26 AM) 27 mL/min/1.73m2 2 *NA* (06/04/19 5:01 AM) 18 mL/min/1.73m2 3 *NA* (06/03/19 8:44 AM) eGFR A POS *Unknown* (06/02/19 12:35 PM) ABO/Rh Negative (06/02/19 12:35 PM) Antibody Scrn 11.6 mEq/L (06/05/19 4:26 AM) 11.3 mEq/L (06/04/19 5:01 AM) 9.6 mEq/L *LOW* (06/03/19 8:44 AM) AGAP [10.0-20.0 mEq/L] 1+ *ABN* (06/03/19 8:44 AM) Anisocyte [None Seen] 0.4 % (06/05/19:26 AM) 0.2 % (06/04/19 5: AM) 0.4 % (06/03/19 8:44 AM) Basophils [0.0-1.0 %] 21 mg/dL (06/05/19 4:26 AM) 34 mg/dL *HI* (06/04/19 5:01 AM) 31 mg/dL *HI* (06/03/19 8:44 AM) BUN [7-22 mg/dL] 9.4 mg/dL (06/05/19 4:26 AM) 8.8 mg/dL (06/04/19 5:01 AM) 8.7 mg/dL (06/03/19 8:44 AM) Calcium Lvl [8.5-10.5 mg/dL] 106 mEq/L (06/05/19 4:26 AM) 101 mEq/L (06/04/19 5:01 AM) 102 mEq/L (06/03/19 8:44 AM) Chloride Lvl [95-109 mEq/L] 26 mEq/L (06/05/19 4:26 AM) 27 mEq/L (06/04/19 5:01 AM) 28 mEq/L (06/03/19 8:44 AM) CO2 [24-32 mEq/L] 1.38 mg/dL (06/05/19 4:26 AM) 2.28 mg/dL *HI* (06/04/19 5:01 AM) 3.22 mg/dL *HI* (06/03/19 8:44 AM) Creatinine Lvl [0.50-1.40 mg/dL] 4.3 % *HI* (06/05/19 4:26 AM) 4.9 % *HI* (06/04/19 5:01 AM) 2.5 % (06/03/19 8:44 AM) Eosinophils [0.0-4.0 %] 112 mg/dL *HI* (06/05/19 4:26 AM) 113 mg/dL *HI* (06/04/19 5:01 AM) 141 mg/dL *HI* (06/03/19 8:44 AM) Glucose Lvl [70-99 mg/dL] 36.3 % *LOW* (06/05/19 4:26 AM) 36.0 % *LOW* (06/04/19 5:01 AM) 38.3 % *LOW* (06/03/19 8:44 AM) Hct [42.0-54.0 %] 12.0 g/dL *LOW* (06/05/19 4:26 AM) 12.1 g/dL *LOW* (06/04/19 5:01 AM) 12.7 g/dL *LOW* (06/03/19 8:44 AM) Hgb [14.0-18.0 g/dL] 4.6 mEq/L (06/05/19 4:26 AM) 4.3 mEq/L (06/04/19 5:01 AM) 4.6 mEq/L (06/03/19 8:44 AM) Potassium Lvl [3.5-5.1 mEq/L] 12.5 % *LOW* (06/05/19 4:26 AM) 14.8 % *LOW* (06/04/19 5:01 AM) 8.8 % *LOW* (06/03/19 8:44 AM) Lymphocytes [20.0-40.0 %] 28.9 pg (06/05/19 4:26 AM) 29.6 pg (06/04/19 5:01 AM) 28.7 pg (06/03/19 8:44 AM) MCH [27.0-31.0 pg] 33.1 g/dL (06/05/19:26 AM) 33.7 g/dL (06/04/19 5:01 AM) 33.2 g/dL (06/03/19 8:44 AM) MCHC [32.0-36.0 g/dL] 87.3 fL (06/05/19:26 AM) 88.1 fL (06/04/19 5:01 AM) 86.5 fL (06/03/19 8:44 AM) MCV [80.0-94.0 fL] 6.8 % (06/05/19:26 AM) 7.6 % (06/04/19: AM) 7.8 % (06/03/19:44 AM) Monocytes [2.0-12.0 %] 8.1 fL (06/05/19:26 AM) 8.0 fL (06/04/19: AM) 7.7 fL (06/03/19 8:44 AM) MPV [7.4-10.4 fL] 139 mEq/L (06/05/19:26 AM) 135 mEq/L (06/04/19 5:01 AM) 135 mEq/L (06/03/19 8:44 AM) Sodium Lvl [135-145 mEq/L] 160 K/CMM (06/05/19 4:26 AM) 165 K/CMM (06/04/19 5:01 AM) 201 K/CMM (06/03/19:44 AM) Platelet [133-450 K/CMM] 76.0 % *HI* (06/05/19 4:26 AM) 72.5 % (06/04/19 5:01 AM) 80.5 % *HI* (06/03/19:44 AM) Segs [45.0-75.0 %] 4.16 M/CMM *LOW* (06/05/19 4:26 AM) 4.09 M/CMM *LOW* (06/04/19 5:01 AM) 4.43 M/CMM *LOW* (06/03/19 8:44 AM) RBC [4.70-6.10 M/CMM] 19.5 % *HI* (06/05/19 4:26 AM) 20.2 % *HI* (06/04/19 5:01 AM) 20.0 % *HI* (06/03/19 8:44 AM) RDW [11.5-14.5 %] Negative *NA* (06/04/19 12:16 AM) UA Bili [Negative] Negative (06/04/19 12:16 AM) UA Blood [Negative] Yellow *NA* (06/04/19 12:16 AM) UA Color [Yellow] 168.00 mg/dL *NA* (06/04/19 12:16 AM) U Creatinine Negative mg/dL *NA* (06/04/19 12:16 AM) UA Glucose [Negative mg/dL] 4 /LPF *HI* (06/04/19 12:16 AM) UA Hyal Cast [0-2 /LPF] Negative mg/dL *NA* (06/04/19 12:16 AM) UA Ketones [Negative mg/dL] Negative (06/04/19 12:16 AM) UA Leuk Est [Negative] Few /LPF *NA* (06/04/19 12:16 AM) UA Mucus [None Seen /LPF] Negative (06/04/19 12:16 AM) UA Nitrite [Negative] 5.0 (06/04/19 12:16 AM) UA pH [5.0-8.0] Negative mg/dL (06/04/19 12:16 AM) UA Protein [Negative mg/dL] <1 /HPF (06/04/19 12:16 AM) UA RBC [0-2 /HPF] 9 mEq/L *NA* (06/04/19 12:16 AM) U Sodium 1.015 (06/04/19 12:16 AM) UA Spec Grav [<=1.030] None Seen *NA* (06/04/19 12:16 AM) UA Sq Epi Clear (06/04/19 12:16 AM) UA Turbidity [Clear] <1.0 mg/dL (06/04/19 12:16 AM) UA Urobilinogen [0.1-1.0 mg/dL] 1 /HPF (06/04/19 12:16 AM) UA WBC [0-5 /HPF] 9.6 K/CMM (06/05/19 4:26 AM) 9.1 K/CMM (06/04/19 5:01 AM) 11.2 K/CMM *HI* (06/03/19 8:44 AM) WBC [3.7-10.4 K/CMM] 1Result Comment: The eGFR is calculated using [...] be mul tiplied by the estimated BMI. Immunizations Given and Recorded Vaccine Date Status [...] TOBACCO Assessment and Plan Extracted from: Title: [facility] Progress Note Author: Allie Costa Pe, MD Date: 06/05/19 Patient is a 74 year old male wi th a past medical history of HTN, COPD, [...] perfectserve if any questions arise. Addendum by Kiana, Teaching Physician Attestat ion: I saw and evaluated the patient and discussedwith the Ishan Meredith MD resident team. I reviewed t he clinical data and confirmed the findings. We formulated the on assessment and plans. I agr ee withthis note. 06/06/2019 Ishan Bruno MD 05:24 CDT Extracted from: Title: [facility] Consult Note Author: Tarun Cline MD [...] in computer -We would like to acces pre-opevalla b values when available -We recommend a Florentino cath be inserted f or strict I/O [...] consult! Tarun Cline MD Nephrology Fellow, PGY4 [facility], [place] Post Rounds Addendum: LOIS improving with Cr [...]
--- OUTSIDE RECORDS SUMMARY | 2020-01-19 13:50 | XMS REPORT | Summary of Care ---
Author Author [facility] Organization [facility] Address Unknown Phone Unavailable Encounter LAUREN Renee(GERARDO) [id number] Date(s): 09/04/18 - 09/06/18 [facility] [address] [place] [address]- Encounter Diagnosis Infection following a procedure, organ and space surgical site, initial encounte r (Final) - 09/19/18 Peritoneal abscess (Final) - Body mass index (BMI) 40.0-44.9, adult (Final) - Hypothyroidism, unspecified (Final) - Gastro-esophageal reflux disease without esophagitis (Final) - Parkinson's disease (Final) - Obstructive sleep apnea (adult) (pediatric) (Final) - Chronic obstructive pulmonary disease, unspecified (Final) - Unspecified atrial fibrillation (Final) - Chronic kidney disease, stage 3 (moderate) (Final) - Methicillin resistant Staphylococcus aureus infection as the cause of diseases c lassified elsewhere (Final) - Proteus (mirabilis) (morganii) as the cause of diseases classified elsewhere (Final) - Alcohol abuse, uncomplicated (Final) - Obesity, unspecified (Final) - Hypertensive chronic kidney disease with stage 1 through stage 4 chronic kidney disease, or unspecified chronic kidney disease (Final) - Anemia in chronic kidney disease (Final) - watermaster (current) use of anticoagulants (Final) - Tobacco use (Final) - Peritonitis, unspecified (Final) - Discharge Disposition: Home Care with Home Health Attending Physician: Iman Acharya MD Admitting Physician: [...] Reactions, Alerts No Known Medication Allergies Medications ATTN RN please bring pt home med to pharmacy to be labeled ATTN RN please bring pt home med to pharmacy to be labeled, ATTN RN, Drug form: MISC, Route: MISCCATHERINE, 09/05/18 0:00:00 [employer]ACHINE [employer] WORK[employer], Duration: 30 day, Stop da te: 10/04/18 16:00:00 MACHINE [employer] WORKER Start Date: 09/05/18 Stop Date: 09/06/18 Status: Discontinued *RN-DO NOT give 21:00 vanc on 09/06 till trough drawn *RN-DO NOT give 21:00 vanc on 09/06 till trough drawn, Attn:RN, Drug form: AR SC, Route: MISC, ONCE, 09/06/18 20:00:00 MACHINE [employer]OP WORKER, Stop date: 09/06/18 20:00:00 MACHINE [employer] WORKER Start Date: 09/06/18 Stop Date: 09/06/18 Status: Canceled acetaminophen 650 mg, Route: PO, Drug form: TAB, Q6H, Dosing Weight 102.273, kg, PRN For Temp > 100.4 F, Start date: 09/03/18 14:28:00 MACHINE [employer] WORKER, Duration: 30 day, Stop date: 10/03/18 14:27:00 MACHINE SHOP WORKER Start Date: 09/03/18 Stop Date: 09/04/18 Status: Discontinued acetaminophen 650 mg, 2 tab, Route: PO, Drug form: TAB, Q6H, Dosing Weight 102.273, kg, PRN Fo r Temp > 100.4 F, Start date: 09/03/18 14:32:00 MACHINE SHOP WORKER, Duration: 30 day, Stop date: 10/03/18 14:31:00 MACHINE SHOP WORKER Notes: Do not exceed 4 gm/day. (Same as: Tylenol) Start Date: 09/03/18 Stop Date: 09/06/18 Status: Discontinued albuterol 2.5 mg, 3.01 mL, Route: NEB, Drug form: SOLN, RQ6H, PRN Wheezing, Start date: 18:16:00 MACHINE [employer] WORKER, Duration: 30 day, Stop date: 10/04/18 18:15:00 MACHINE SHOP WORKER Notes: SEE RT DOCUMENTATION (Same as: Proventil) Start Date: 09/04/18 Stop Date: 09/06/18 Status: Discontinued albuterol 2.5 mg, 3.01 mL, Route: NEB, Drug form: SOLN, RQ6H, Start date: 09/04/18 20:00:0 0 MACHINE [employer] WORKER, Duration: 30 day, Stop date: 10/04/18 14:00:00 MACHINE SHOP WORKER Notes: SEE RT DOCUMENTATION (Same as: Proventil) Start Date: 09/04/18 Stop Date: 09/06/18 Status: Discontinued bisacodyl 10 mg, Route: NJ, Daily, Dosing Weight 102.273, kg, PRN Constipation, Start date : 09/03/18 14:28:00 MACHINE SHOP WORKER, Duration: 30 day, Stop date: 10/03/18 14:27:00 MACHINE SHOP WORKER Start Date: 09/03/18 Stop Date: 09/04/18 Status: Discontinued bisacodyl 10 mg, 1 supp, Route: NJ, Drug form: SUPP, Daily, Dosing Weight 102.273, kg, PRN Constipation, Start date: 09/03/18 14:32:00 MACHINE SHOP WORKER, Duration: 30 day, Stop date: 0 10/03/18 14:31:00 MACHINE SHOP WORKER Notes: (Same As: Dulcolax, Bisco-Lax) Start Date: 09/03/18 Stop Date: 09/06/18 Status: Discontinued carbidopa-levodopa 50 mg-200 mg oral tablet, extended release 1 tab, Route: PO, Drug Form: ERTAB, Dosing Weight 105.966, kg, BID, Start date: 09/05/18 9:00:00 MACHINE SHOP WORKER, Duration: 30 day, Stop date: 10/04/18 17:00:00 MACHINE SHOP WORKER Notes: "Do Not Crush" Take with milk or food. (Same As: Sinemet CR) Start Date: 09/05/18 Stop Date: 09/06/18 Status: Discontinued cefepime + Sodium Chloride 0.9% IV 100 mL 1 gm, Route: IVPB, [id number], Dosing Weight 105.966, kg, (CrCl 30 - 49 ml/min), St art date: 09/04/18 18:00:00 MACHINE SHOP WORKER, Duration: 10 day, Stop date: 09/14/18 6:00:[address], ABX Indication: Intra-abdominal Infection Notes: (Same As: Maxipime) MEDICATION WASTE Product Size: 1000 mgProduc t Wasted: ___ mg Start Date: 09/04/18 Stop Date: 09/04/18 Status: Discontinued cefepime + Sodium Chloride 0.9% IV 100 mL 1 gm, Route: IVPB, [id number], Dosing Weight 105.966, kg, (CrCl >/= 50 ml/min), Start date: 09/05/18 2:00:00 MACHINE SHOP WORKER, Duration: 7 day, Stop date: 09/11/18 18:00:00 MACHINE SHOP WORKER, ABX Indication: Skin/Soft Tissue Infection Notes: (Same As: Maxipime) MEDICATION WASTE Product Size: 1000 mgProduc t Wasted: ___ mg Start Date: 09/05/18 Stop Date: 09/06/18 Status: Discontinued cefepime 1 g injection 1 gm, IV, Q8H, X 6 week, # 126 bag, 0 Refill(s), given to patient Start Date: 09/06/18 Stop Date: 10/18/18 Status: Completed Dextrose 50% Syringe 25 mL, Route: IVP, Dosing Weight 102.273, kg, PRN, PRN Blood Glucose Results, art date: 09/03/18 14:28:00 MACHINE SHOP WORKER, Duration: 30 day, Stop date: 10/03/18 14:27:00 MACHINE SHOP WORKER Start Date: 09/03/18 Stop Date: 09/04/18 Status: Discontinued Dextrose 50% Syringe 50 mL, Route: IVP, Dosing Weight 102.273, kg, PRN, PRN Blood Glucose Results, art date: 09/03/18 14:28:00 MACHINE SHOP WORKER, Duration: 30 day, Stop date: 10/03/18 14:27:00 MACHINE SHOP WORKER Start Date: 09/03/18 Stop Date: 09/04/18 Status: Discontinued Dextrose 50% Syringe 12.5 gm, 25 mL, Route: IVP, Drug Form: INJ, Dosing Weight 102.273, kg, PRN, PRN Blood Glucose Results, Start date: 09/03/18 14:32:00 MACHINE SH[employer] WORKER, Duration: 30 day, Stop date: 10/03/18 14:31:00 MACHINE SHOP WORKER Start Date: 09/03/18 Stop Date: 09/06/18 Status: Discontinued Dextrose 50% Syringe 25 gm, 50 mL, Route: IVP, Drug Form: INJ, Dosing Weight 102.273, kg, PRN, PRN Bl ood Glucose Results, Start date: 09/03/18 14:32:00 MACHINE SHOP WORKER, Duration: 30 day, Stop d ate: 10/03/18 14:31:00 MACHINE SHOP WORKER Start Date: 09/03/18 Stop Date: 09/06/18 Status: Discontinued diphenhydrAMINE 25 mg, Route: PO, Q6H, Dosing Weight 102.273, kg, PRN as needed for allergy symp toms, Start date: 09/03/18 14:28:00 MACHINE SH[employer] WORKER, Duration: 30 day, Stop date: 10/03/18 1 4:27:00 MACHINE SHOP WORKER Start Date: 09/03/18 Stop Date: 09/04/18 Status: Discontinued diphenhydrAMINE 25 mg, 1 tab, Route: PO, Drug form: TAB, Q6H, Dosing Weight 102.273, kg, PRN as needed for allergy symptoms, Start date: 09/03/18 14:32:00 MACHINE SH[employer] WORKER, Duration: 30 day , Stop date: 10/03/18 14:31:00 MACHINE SHOP WORKER Start Date: 09/03/18 Stop Date: 09/06/18 Status: Discontinued gabapentin 600 mg oral tablet 600 mg, 2 cap, Route: PO, Drug form: CAP, Q6H, Dosing Weight 105.966, kg, Start date: 09/05/18 0:00:00 MACHINE [employer] WORKER, Duration: 30 day, Stop date: 10/04/18 18:00:00 MACHINE SHOP WORKER Notes: (Same as: Neurontin) Start Date: 09/05/18 Stop Date: 09/06/18 Status: Discontinued glucagon 1 mg, Route: IM, PRN, Dosing Weight 102.273, kg, PRN Blood Glucose Results, Star t date: 09/03/18 14:28:00 MACHINE SH[employer] WORKER, Duration: 30 day, Stop date: 10/03/18 14:27:00 CS T Start Date: 09/03/18 Stop Date: 09/04/18 Status: Discontinued glucagon 1 mg, Route: IM, Drug form: PDR/INJ, PRN, Dosing Weight 102.273, kg, PRN Blood G lucose Results, Start date: 09/03/18 14:32:00 MACHINE SH[employer] WORKER, Duration: 30 day, Stop date: 10/03/18 14:31:00 MACHINE SHOP WORKER Start Date: 09/03/18 Stop Date: 09/06/18 Status: Discontinued hydrALAZINE 10 mg, Route: IVP, Q4H, Dosing Weight 102.273, kg, PRN Hypertension, Priority: R outine, Start date: 09/03/18 14:28:00 MACHINE SH[employer] WORKER, Duration: 30 day, Stop date: 10/03/18 14:27:00 MACHINE SHOP WORKER Start Date: 09/03/18 Stop Date: 09/04/18 Status: Discontinued hydrALAZINE 10 mg, 0.5 mL, Route: IVP, Drug form: INJ, Q4H, Dosing Weight 102.273, kg, PRN H ypertension, Priority: Routine, Start date: 09/03/18 14:32:00 MACHINE SHOP WORKER, Duration: 30 day, Stop date: 10/03/18 14:31:00 MACHINE SHOP WORKER Notes: (Same as: Apresoline)Push over 5 minutes Start Date: 09/03/18 Stop Date: 09/06/18 Status: Discontinued levothyroxine 125 microgram, 1 tab, Route: PO, Drug form: TAB, QAM, Dosing Weight 105.966, kg, Start date: 09/05/18 9:00:00 MACHINE SHOP WORKER, Duration: 30 day, Stop date: 10/04/18 9:00:00 MACHINE SHOP WORKER Notes: Take 1 hour before or 2 hours after meal; Enteral feeds may interefere wi th the absorption of this medication. (Same as:Levothroid) Start Date: 09/05/18 Stop Date: 09/06/18 Status: Discontinued magnesium citrate 1.745 g/30 mL oral liquid 300 ml, Route: PO, Dosing Weight 102.273, kg, ONCE, PRN Constipation, Start date : 09/03/18 14:28:00 MACHINE SHOP WORKER Start Date: 09/03/18 Stop Date: 09/04/18 Status: Discontinued magnesium citrate 1.745 g/30 mL oral liquid 300 ml, Route: PO, Drug Form: LIQ, Dosing Weight 102.273, kg, ONCE, PRN Constipa tion, Start date: 09/03/18 14:32:00 MACHINE SHOP WORKER Notes: (Same as: Citrate of Magnesia)Concentration: 1.745 gm / 30 mL Start Date: 09/03/18 Stop Date: 09/06/18 Status: Discontinued melatonin 3 mg, Route: PO, Bedtime, Dosing Weight 102.273, kg, PRN Insomnia, Start date: 0 09/03/18 14:28:00 MACHINE SHOP WORKER, Duration: 30 day, Stop date: 10/03/18 14:27:00 MACHINE SHOP WORKER Start Date: 09/03/18 Stop Date: 09/04/18 Status: Discontinued melatonin 3 mg, 1 tab, Route: PO, Drug form: TAB, Bedtime, Dosing Weight 102.273, kg, PRN Insomnia, Start date: 09/03/18 14:32:00 MACHINE SHOP WORKER, Duration: 30 day, Stop date: 14:31:00 MACHINE SHOP WORKER Notes: (Same as: Melatonin) Start Date: 09/03/18 Stop Date: 09/06/18 Status: Discontinued morphine Sulfate 2 mg, Route: IVP, Q4H, Dosing Weight 102.273, kg, PRN Pain Score 7-10, Start yun e: 09/03/18 14:28:00 MACHINE SHOP WORKER, Duration: 30 day, Stop date: 10/03/18 14:27:00 MACHINE SHOP WORKER Start Date: 09/03/18 Stop Date: 09/04/18 Status: Discontinued morphine Sulfate 2 mg, 1 mL, Route: IVP, Drug form: SOLN, Q4H, Dosing Weight 102.273, kg, PRN [place] n Score 7-10, Start date: 09/03/18 14:32:00 MACHINE SHOP WORKER, Duration: 30 day, Stop date: 14:31:00 MACHINE SH[employer] WORKER Start Date: 09/03/18 Stop Date: 09/06/18 Status: Discontinued nicotine 21 mg, Route: TOP, Drug form: ERFILM, Daily, Dosing Weight 102.273, kg, PRN as n eeded for smoking cessation, Start date: 09/03/18 14:28:00 MACHINE SH[employer] WORKER, Duration: 30 day , Stop date: 10/03/18 14:27:00 MACHINE SH[employer] WORKER Start Date: 09/03/18 Stop Date: 09/04/18 Status: Discontinued nicotine 21 mg, 1 patch, Route: TOP, Drug form: ERFILM, Daily, Dosing Weight 102.273, kg, PRN as needed for smoking cessation, Start date: 09/03/18 14:32:00 MACHINE SHOP WORKER, Duratio n: 30 day, Stop date: 10/03/18 14:31:00 MACHINE SHOP WORKER Notes: (Same as: Habitrol)"Remove old patch before application of new patch"WAST E: F/P - P Waste Black; E - P Waste Black Start Date: 09/03/18 Stop Date: 09/06/18 Status: Discontinued Odessa 10/325 oral tablet 1 tab, PO, Q6H, PRN for pain, # 24 tab, 0 Refill(s) Start Date: 09/04/18 Stop Date: 09/26/18 Status: Discontinued Odessa 5/325 oral tablet 1 tab, Route: PO, Drug Form: TAB, Dosing Weight 102.273, kg, Q6H, PRN Pain Score 1-3, Start date: 09/03/18 14:28:00 MACHINE SHOP WORKER, Duration: 30 day, Stop date: 10/03/18 1 4:27:00 MACHINE SHOP WORKER Start Date: 09/03/18 Stop Date: 09/04/18 Status: Discontinued Odessa 5/325 oral tablet 1 tab, Route: PO, Drug Form: TAB, Dosing Weight 102.273, kg, Q6H, PRN Pain Score 1-3, Start date: 09/03/18 14:32:00 MACHINE SHOP WORKER, Duration: 30 day, Stop date: 10/03/18 1 4:31:00 MACHINE SHOP WORKER Notes: (Same as: Odessa 325/5) Do not exceed 4gm/day of acetaminophen. Start Date: 09/03/18 Stop Date: 09/06/18 Status: Discontinued NS 1,000 mL 1,000 mL, Rate: 75 ml/hr, Infuse over: 13.3 hr, Route: IV, Dosing Weight 105.966 kg, Total Volume: 1,000, Start date: 09/04/18 19:15:00 MACHINE SHOP WORKER, Duration: 30 day, S top date: 10/04/18 19:14:00 MACHINE SHOP WORKER, 2.22, m2 Start Date: 09/04/18 Stop Date: 09/05/18 Status: Discontinued Omnipaque 300 injectable solution 100 mL, Route: IVP, Drug Form: SOLN, Dosing Weight 105.966, kg, ONCALL, GFR > 45 mL/min, Start date: 09/04/18 16:00:00 MACHINE SHOP WORKER, Duration: 1 doses or times Notes: (Same as:Omnipaque 300).WASTE: F/P - Black; E - Municipal Trash Bin Start Date: 09/04/18 Stop Date: 09/06/18 Status: Discontinued ondansetron 4 mg, Route: IVP, Q6H, Dosing Weight 102.273, kg, PRN Nausea & Vomiting, Start date: 09/03/18 14:28:00 MACHINE SHOP WORKER, Duration: 30 day, Stop date: 10/03/18 14:27:00 MACHINE SHOP WORKER Start Date: 09/03/18 Stop Date: 09/04/18 Status: Discontinued ondansetron 4 mg, 2 mL, Route: IVP, Drug form: INJ, Q6H, Dosing Weight 102.273, kg, PRN Naus ea & Vomiting, Start date: 09/03/18 14:32:00 MACHINE SHOP WORKER, Duration: 30 day, Stop date: 10/03/18 14:31:00 MACHINE SHOP WORKER Notes: (Same as: Agapito) MEDICATION WASTE Product Size: 4 mgProduct Was mary kate: ___ mg Start Date: 09/03/18 Stop Date: 09/06/18 Status: Discontinued pantoprazole 40 mg, 1 tab, Route: PO, Drug form: ECTAB, Daily, Dosing Weight 105.966, kg, Sta rt date: 09/05/18 9:00:00 MACHINE SHOP WORKER, Duration: 30 day, Stop date: 10/04/18 9:00:00 MACHINE SHOP WORKER Notes: Tablet should not be chewed or crushed.(Same as: Protonix) Start Date: 09/05/18 Stop Date: 09/06/18 Status: Discontinued polyethylene glycol 3350 17 gm, Route: PO, Daily, Dosing Weight 102.273, kg, PRN Constipation, Start date : 09/03/18 14:28:00 MACHINE SHOP WORKER, Duration: 30 day, Stop date: 10/03/18 14:27:00 MACHINE SHOP WORKER Start Date: 09/03/18 Stop Date: 09/04/18 Status: Discontinued polyethylene glycol 3350 17 gm, 1 pkt, Route: PO, Drug form: PWDR, Daily, Dosing Weight 102.273, kg, PRN Constipation, Start date: 09/03/18 14:32:00 MACHINE SHOP WORKER, Duration: 30 day, Stop date: 14:31:00 MACHINE SHOP WORKER Notes: Dissolve in 8 oz of water or juice.(Same as: Miralax) Start Date: 09/03/18 Stop Date: 09/06/18 Status: Discontinued ProAir HFA 90 mcg/inh inhalation aerosol with adapter 180 microgram, 2 puff, Route: INHALER, Drug Form: AERO/A, Dosing Weight 105.966, kg, Q6H, PRN, Start date: 09/04/18 17:34:00 MACHINE SHOP WORKER, Duration: 30 day, Stop date: 0 10/04/18 17:33:00 MACHINE SHOP WORKER, asthma Start Date: 09/04/18 Stop Date: 09/04/18 Status: Deleted Pulmicort Respules 0.5 mg, 2 mL, Route: NEB, Drug form: SUSP, RBID, Start date: 09/04/18 20:00:[address], Duration: 30 day, Stop date: 10/04/18 8:00:00 MACHINE SHOP WORKER Notes: (Same As: Pulmicort) Start Date: 09/04/18 Stop Date: 09/06/18 Status: Discontinued SEROquel 25 mg, Route: PO, BID, Dosing Weight 102.273, kg, PRN Agitation, Start date: 14:28:00 MACHINE SHOP WORKER, Duration: 30 day, Stop date: 10/03/18 14:27:00 MACHINE SHOP WORKER Start Date: 09/03/18 Stop Date: 09/04/18 Status: Discontinued SEROquel 25 mg, 1 tab, Route: PO, Drug form: TAB, BID, Dosing Weight 102.273, kg, PRN Marisol tation, Start date: 09/03/18 14:32:00 MACHINE SHOP WORKER, Duration: 30 day, Stop date: 10/03/18 14:31:00 MACHINE SHOP WORKER Notes: (Same as: SEROquel) Start Date: 09/03/18 Stop Date: 09/06/18 Status: Discontinued sertraline 100 mg, 1 tab, Route: PO, Drug form: TAB, Bedtime, Dosing Weight 105.966, kg, St art date: 09/04/18 21:00:00 MACHINE SHOP WORKER, Duration: 30 day, Stop date: 10/03/18 21:00:00 MACHINE SHOP WORKER Notes: (Same as: Zoloft) Start Date: 09/04/18 Stop Date: 09/06/18 Status: Discontinued Symbicort 160/4.5 inhalation aerosol with adapter 2 puff, Route: INHALATION, Drug Form: AERO/A, Dosing Weight 105.966, kg, BID, St art date: 09/05/18 9:00:00 MACHINE SHOP WORKER, Duration: 30 day, Stop date: 10/04/18 17:00:[address] Start Date: 09/05/18 Stop Date: 09/04/18 Status: Deleted torsemide 20 mg, 1 tab, Route: PO, Drug form: TAB, Daily, Dosing Weight 105.966, kg, Start date: 09/05/18 9:00:00 MACHINE SHOP WORKER, Duration: 30 day, Stop date: 10/04/18 9:00:00 MACHINE SHOP WORKER Notes: (Same As: Demadex) Start Date: 09/05/18 Stop Date: 09/06/18 Status: Discontinued tramadol 50 mg oral tablet 50 mg, 1 tab, Route: PO, Drug form: TAB, Q6H, Dosing Weight 105.966, kg, PRN Txe n Score 7-10, Start date: 09/04/18 17:34:00 MACHINE SH[employer] WORKER, Duration: 30 day, Stop date: 17:33:00 MACHINE SHOP WORKER Notes: Not to exceed 400mg/day. (Same As: Ultram) Start Date: 09/04/18 Stop Date: 09/06/18 Status: Discontinued trazodone 50 mg, Route: PO, Bedtime, Dosing Weight 102.273, kg, PRN Insomnia, Start date: 09/03/18 14:28:00 MACHINE SH[employer] WORKER, Duration: 30 day, Stop date: 10/03/18 14:27:00 MACHINE SHOP WORKER Start Date: 09/03/18 Stop Date: 09/04/18 Status: Discontinued trazodone 50 mg, 1 tab, Route: PO, Drug form: TAB, Bedtime, Dosing Weight 102.273, kg, PRN Insomnia, Start date: 09/03/18 14:32:00 MACHINE SHOP WORKER, Duration: 30 day, Stop date: 10/03 14:31:00 MACHINE SHOP WORKER Notes: (Same As: Laronyrel) Start Date: 09/03/18 Stop Date: 09/06/18 Status: Discontinued triamcinolone 0.1% mucous membrane paste 1 appl, PO, TID, # 5 gm, 0 Refill(s) Start Date: 09/04/18 Stop Date: 09/26/18 Status: Discontinued valsartan 80 mg, 1 tab, Route: PO, Drug form: TAB, BID, Dosing Weight 105.966, kg, Start d ate: 09/05/18 9:00:00 MACHINE SH[employer] WORKER, Duration: 30 day, Stop date: 10/04/18 17:00:00 MACHINE SHOP WORKER Notes: Same as Diovan Start Date: 09/05/18 Stop Date: 09/06/18 Status: Discontinued vancomycin 1,000 mg, Route: IVPB, Drug form: INJ, [id number], Dosing Weight 105.966, kg, Start date: 09/04/18 18:00:00 MACHINE SH[employer] WORKER, Duration: 10 day, Stop date: 09/14/18 6:00:00 MACHINE SHOP WORKER, ABX Indication: Intra-abdominal Infection Start Date: 09/04/18 Stop Date: 09/04/18 Status: Discontinued vancomycin 1.5 gm, Route: IVPB, Drug form: INJ, [id number], Dosing Weight 105.966, kg, Start d ate: 09/04/18 20:00:00 MACHINE SHOP WORKER, Duration: 7 day, Stop date: 09/11/18 8:00:00 MACHINE SHOP WORKER, AB X Indication: Skin/Soft Tissue Infection Start Date: 09/04/18 Stop Date: 09/04/18 Status: Canceled vancomycin + Sodium Chloride 0.9% IV 250 mL 1,250 mg, Route: IVPB, [id number], Start date: 09/04/18 20:00:00 MACHINE SHOP WORKER, Duration: 7 d ay, Stop date: 09/10/18 21:00:00 MACHINE SHOP WORKER, ABX Indication: Intra-abdominal Infection Notes: TIME CRITICAL MEDICATION(Same As: Vancocin)Infusion rate< 1000 mg: infuse over 1 [id number] - 1500 mg: infuse over 1.5 [id number] - 2000 mg: infuse over 2 hours> [...] Start Date: 09/06/18 Stop Date: 10/18/18 Status: Completed Vancomycin Pharmacy Dosing 1 ea, Route: MISC, ONCALL, Dosing Weight 105.966, kg, Start date: 09/04/18 20:00 :00 MACHINE SH[employer] WORKER, Duration: 7 day, Stop date: 09/11/18 19:59:00 MACHINE SH[employer] WORKER, Pharmacy to dose, AB X Indication: Skin/Soft Tissue Infection Start Date: 09/04/18 Stop Date: 09/04/18 Status: Deleted Karen 8.4 gm, Route: PO, Drug form: PDR/REC, Daily, Dosing Weight 105.966, kg, Start d ate: 09/05/18 9:00:00 MACHINE SH[employer] WORKER, Duration: 30 day, Stop date: 10/04/18 9:00:00 MACHINE SH[employer] WORKER Start Date: 09/05/18 Stop Date: 09/06/18 Status: Discontinued Xarelto 20 mg, 1 tab, Route: PO, Drug form: TAB, QPM, Dosing Weight 105.966, kg, Start d ate: 09/05/18 17:00:00 MACHINE SH[employer] WORKER, Duration: 30 day, Stop date: 10/04/18 17:00:00 MACHINE SHOP WORKER Notes: (Same as: Xarelto)Administer with food Start Date: 09/05/18 Stop Date: 09/06/18 Status: Discontinued Results 1 2 3 Most recent to oldest [Reference Range]: 7.8 K/CMM (09/06/18 5:15 AM) 6.3 K/CMM [...] (09/05/18 6:28 AM) Basophils # [0.0-0.2 K/CMM] 54 mL/min/1.73m2 1 *NA* (09/06/18 5:15 AM) 56 mL/min/1.73m2 2 *NA* (09/05/18 6:28 AM) 50 mL/min/1.73m2 3 *NA* (09/04/18 4:44 PM) eGFR 0.7 (09/06/18 5:15 AM) 0.8 (09/05/18 6:28 AM) 0.7 (09/04/18 4:44 PM) A/G Ratio [0.7-1.6] 3.2 g/dL *LOW* (09/06/18 5:15 AM) 3.2 g/dL *LOW* (09/05/18 6:28 AM) 3.5 g/dL (09/04/18 4:44 PM) Albumin Lvl [3.5-5.0 g/dL] 77 unit/L (09/06/18 5:15 AM) 74 unit/L (09/05/18 6:28 AM) 79 unit/L (09/04/18 4:44 PM) Alk Phos [39-136 unit/L] 14 unit/L (09/06/18 5:15 AM) 16 unit/L (09/05/18 6:28 AM) 7 unit/L (09/04/18 4:44 PM) ALT [0-65 unit/L] 13.4 mEq/L (09/06/18 5:15 AM) 8.2 mEq/L *LOW* (09/05/18 6:28 AM) 15.6 mEq/L (09/04/18 4:44 PM) AGAP [10.0-20.0 mEq/L] 15 unit/L (09/06/18 5:15 AM) 16 unit/L (09/05/18 6:28 AM) 17 unit/L (09/04/18 4:44 PM) AST [0-37 unit/L] 21 (09/06/18 5:15 AM) 22 (09/05/18 6:28 AM) 23 (09/04/18 4:44 PM) B/C Ratio [6-25] 1.0 % (09/06/18 5:15 AM) 0.7 % (09/05/18 6:28 AM) Basophils [0.0-1.0 %] 28 mg/dL *HI* (09/06/18 5:15 AM) 28 mg/dL *HI* (09/05/18 6:28 AM) 32 mg/dL *HI* (09/04/18 4:44 PM) BUN [7-22 mg/dL] 8.6 mg/dL (09/06/18 5:15 AM) 8.3 mg/dL *LOW* (09/05/18 6:28 AM) 8.9 mg/dL (09/04/18 4:44 PM) Calcium Lvl [8.5-10.5 mg/dL] 3.10 *LOW* (09/05/18 6:28 AM) CHD Risk [4.00-7.30] 155 mg/dL (09/05/18 6:28 AM) Chol [<=199 mg/dL] 109 mEq/L (09/06/18 5:15 AM) 105 mEq/L (09/05/18 6:28 AM) 106 mEq/L (09/04/18 4:44 PM) Chloride Lvl [95-109 mEq/L] 25 mEq/L (09/06/18 5:15 AM) 27 mEq/L (09/05/18 6:28 AM) 24 mEq/L (09/04/18 4:44 PM) CO2 [24-32 mEq/L] 1.31 mg/dL (09/06/18 5:15 AM) 1.26 mg/dL (09/05/18 6:28 AM) 1.38 mg/dL (09/04/18 4:44 PM) Creatinine Lvl [0.50-1.40 mg/dL] 3.3 % (09/06/18 5:15 AM) 3.2 % (09/05/18 6:28 AM) Eosinophils [0.0-4.0 %] 4.5 g/dL *HI* (09/06/18 5:15 AM) 4.2 g/dL (09/05/18 6:28 AM) 4.7 g/dL *HI* (09/04/18 4:44 PM) Globulin [2.7-4.2 g/dL] 119 mg/dL *HI* (09/06/18 5:15 AM) 102 mg/dL *HI* (09/05/18 6:28 AM) 99 mg/dL (09/04/18 4:44 PM) Glucose Lvl [70-99 mg/dL] 33.0 % *LOW* (09/06/18 5:15 AM) 31.6 % *LOW* (09/05/18 6:28 AM) 36.0 % *LOW* (09/04/18 4:44 PM) Hct [42.0-54.0 %] 50 mg/dL *LOW* (09/05/18 6:28 AM) HDL [>=61 mg/dL] 10.8 g/dL *LOW* (09/06/18 5:15 AM) 10.2 g/dL *LOW* (09/05/18 6:28 AM) 11.9 g/dL *LOW* (09/04/18 4:44 PM) Hgb [14.0-18.0 g/dL] 5.5 % (09/05/18 6:28 AM) Hgb A1C [<=5.6 %] 4.4 mEq/L (09/06/18 5:15 AM) 4.2 mEq/L (09/05/18 6:28 AM) 4.6 mEq/L (09/04/18 4:44 PM) Potassium Lvl [3.5-5.1 mEq/L] 1.9 mMol/L (09/04/18 6:07 PM) Lactic Acid Lvl [0.5-2.2 mMol/L] 94 mg/dL (09/05/18 6:28 AM) LDL (Calculated) [<=99 mg/dL] 16.0 % *LOW* (09/06/18 5:15 AM) 21.0 % (09/05/18 6:28 AM) Lymphocytes [20.0-40.0 %] 25.4 pg *LOW* (09/06/18 5:15 AM) 25.1 pg *LOW* (09/05/18 6:28 AM) 25.9 pg *LOW* (09/04/18 4:44 PM) MCH [27.0-31.0 pg] 32.7 g/dL (09/06/18 5:15 AM) 32.3 g/dL (09/05/18 6:28 AM) 33.0 g/dL (09/04/18 4:44 PM) MCHC [32.0-36.0 g/dL] 77.7 fL *LOW* (09/06/18 5:15 AM) 77.5 fL *LOW* (09/05/18 6:28 AM) 78.4 fL *LOW* (09/04/18 4:44 PM) MCV [80.0-94.0 fL] 2.4 mg/dL (09/06/18 5:15 AM) 2.5 mg/dL *HI* (09/05/18 6:28 AM) Magnesium Lvl [1.8-2.4 mg/dL] 1+ *ABN* (09/06/18 5:15 AM) 1+ *ABN* (09/05/18 6:28 AM) Microcyte [None Seen] 6.6 % (09/06/18 5:15 AM) 10.1 % (09/05/18 6:28 AM) Monocytes [2.0-12.0 %] 7.6 fL (09/06/18 5:15 AM) 7.6 fL (09/05/18 6:28 AM) 7.5 fL (09/04/18 4:44 PM) MPV [7.4-10.4 fL] 143 mEq/L (09/06/18 5:15 AM) 136 mEq/L (09/05/18 6:28 AM) 141 mEq/L (09/04/18 4:44 PM) Sodium Lvl [135-145 mEq/L] 3.7 mg/dL (09/06/18 5:15 AM) 3.5 mg/dL (09/05/18 6:28 AM) Phosphorus [2.5-4.5 mg/dL] 286 K/CMM (09/06/18 5:15 AM) 253 K/CMM (09/05/18 6:28 AM) 241 K/CMM (09/04/18 4:44 PM) Platelet [133-450 K/CMM] 73.1 % (09/06/18 5:15 AM) 65.0 % (09/05/18 6:28 AM) Segs [45.0-75.0 %] 7.7 g/dL (09/06/18 5:15 AM) 7.4 g/dL (09/05/18 6:28 AM) 8.2 g/dL (09/04/18 4:44 PM) Total Protein [6.4-8.4 g/dL] 4.25 M/CMM *LOW* (09/06/18 5:15 AM) 4.08 M/CMM *LOW* (09/05/18 6:28 AM) 4.59 M/CMM *LOW* (09/04/18 4:44 PM) RBC [4.70-6.10 M/CMM] 17.4 % *HI* (09/06/18 5:15 AM) 16.9 % *HI* (09/05/18 6:28 AM) 17.5 % *HI* (09/04/18 4:44 PM) RDW [11.5-14.5 %] 0.3 mg/dL (09/06/18 5:15 AM) 0.4 mg/dL (09/05/18 6:28 AM) 0.4 mg/dL (09/04/18 4:44 PM) Bili Total [0.2-1.3 mg/dL] 53 mg/dL (09/05/18 6:28 AM) Trig [<=149 mg/dL] 10.7 K/CMM *HI* (09/06/18 5:15 AM) 9.6 K/CMM (09/05/18 6:28 AM) 11.0 K/CMM *HI* (09/04/18 4:44 PM) WBC [3.7-10.4 K/CMM] 11 *NA* (09/05/18 6:28 AM) VLDL 1Result Comment: The eGFR is calculated using [...] mul tiplied by the estimated BMI. 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 cc: abdominal wound SUBJECTIVE: AFVSS [...] debris throughout ext - warm to touch VitalsTmp(F)[id number] 09/06 11:4797.285886/913247--- 09/06 07:5897.903631/311512 21% 09/06 04:0098.440526/900762--- 09/06 00:3298.538288/584138--- 09/05 20:0098.128170/839922--- 24 Hr Tmax: 98.8F (37.11c) at 09/05 20:0 0Vital Signs are the last 5 in the [...] Javan Gray will be covering for me 1.26.19 to 2.1.19. If patient needs any further surgical attention/recs while admitted at [facility], please contact him. Extracted from: Title: Surgery Staff Author: Aye Rubio MD Date: 09/04 CONSULTATION AYE RUBIO MD CC: abdominal wound [...] care. He was sent for admission to [facility] today after recent wound culture grew out [...] heme/lymph, allergic, skin/breast) EXCEPT per HPI EXAM: VitalsTmp(F)[id number] 09/05 08:08 1495 21% 09/05 07:0098.801945/0058763--- 09/05 04:0098.306470/0518641--- 09/05 00:0098.789272/5576931--- 09/04 20:3299.899540/841496--- 24 Hr Tmax: 99.1F (37.28c) at 09/04 20:3 2Vital Signs are the last 5 in the past 48 hours. I&ORecordInOutBal 08/2323hr Tot [phone] 08/2223hr Tot 0 0 0 GENERAL/CONSTITUTIONAL - [...] dressing tomorrow AM to assess wound when butt sawyer available with replacement VAC supplies. 2. Further [...]
--- OUTSIDE RECORDS SUMMARY | 2020-01-19 13:50 | XMS REPORT | Summary of Care ---
Author Author [facility] Organization [facility] Address Unknown Phone Unavailable Encounter LAUREN Renee(GERARDO) [id number] Date(s): 08/07/18 - 09/05/18 [facility] [address] [place] [address]- [phone] Encounter Diagnosis Unspecified open wound of abdominal wall, unspecified quadrant without penetrati on into peritoneal cavity, subsequent encounter (Final) - 09/09/18 Disruption of internal operation (surgical) wound, not elsewhere classified, sub sequent encounter (Final) - Enterococcus as the cause of diseases classified elsewhere (Final) - Essential (primary) hypertension (Final) - Chronic kidney disease, stage 3 (moderate) (Final) - Unspecified atrial fibrillation (Final) - Idiopathic progressive neuropathy (Final) - Discharge Disposition: Home or Self [...] Last 365 Days Yes; Reg 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
--- OUTSIDE RECORDS SUMMARY | 2020-01-19 13:50 | XMS REPORT | Summary of Care ---
Author Author [facility] Organization [facility] Address Unknown Phone Unavailable Encounter LAUREN Renee(GERARDO) [id number] Date(s): 06/17/18 - 07/16/18 [facility] [address] [place] [address]- Encounter Diagnosis Disruption of external operation (surgical) wound, not elsewhere classified, ini tial encounter (Final) - 07/25/18 Hypertensive chronic kidney disease with stage 1 through stage 4 chronic kidney disease, or unspecified chronic kidney disease (Final) - Chronic kidney disease, unspecified (Final) - Idiopathic progressive neuropathy (Final) - Unspecified atrial fibrillation (Final) - Discharge Disposition: Home or Self [...] Cataract surgery 11/14/13 Completed Knee joint operation 4/4/13 Completed Bariatric operative procedure 10/13/02 Complete d [...] Last 365 Days Yes; 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
--- OUTSIDE RECORDS SUMMARY | 2020-01-19 13:51 | XMS REPORT | Summary of Care ---
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 stage 4 chronic kidney disease, or unspecified chronic kidney disease (Final) - Postprocedural hematoma of skin and subcutaneous tissue following other procedur e (Final) - Heart failure, unspecified (Final) - Chronic kidney disease, stage 3 (moderate) (Final) - Unspecified atrial fibrillation (Final) - Parkinson's disease (Final) - 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) - Bariatric surgery status (Final) - Nicotine dependence, chewing tobacco, uncomplicated (Final) - Discharge Disposition: Home Care with Home Health Attending Physician: Fabien Siddiqui MD Admitting Physician: Fabien Siddiqui MD Vital Signs 1 2 3 Most recent to oldest [Reference Range]: 167.64 cm (04/04/18 9:52 PM) 167.64 cm (04/04/18 11:28 AM) Height 98.2 DegF (04/10/18 11:14 AM) 98.2 DegF (04/10/18 7:20 AM) 97.9 DegF (04/10/18 3:53 AM) Temperature Oral [96.4-99.1 DegF] 132/83 mmHg (04/10/18 11:14 AM) 124/75 mmHg (04/10/18 7:20 AM) 112/70 mmHg (04/10/18 3:53 AM) Blood Pressure [90-140/60-90 mmHg] 16 BRMIN (04/10/18 11:14 AM) 16 BRMIN (04/10/18 7:20 AM) 16 BRMIN (04/10/18 3:53 AM) Respiratory Rate [14-20 BRMIN] 74 bpm (04/10/18 11:14 AM) 71 bpm (04/10/18 7:20 AM) 74 bpm (04/10/18 3:53 AM) Peripheral Pulse Rate [60-100 bpm] 99.602 kg (04/04/18 9:52 PM) 97.727 kg (04/04/18 11:28 AM) Weight 35.44 m2 (04/04/18 9:52 PM) 34.77 m2 (04/04/18 11:28 AM) Body Mass Index Problem List Condition [...] Status NKDA Active Medications acetaminophen 1,000 mg, 100 mL, Route: IV, Drug form: INJ, Q6Hnow, Dosing Weight 99.602, kg, S tart date: 04/05/18 10:30:00 CDT, Duration: 30 day, Stop date: 05/05/18 6:00:00 CDT Notes: Infuse over 15 minutesDo not exceed 4gm/day of acetaminophen MEDICAT ION WASTE Product Size: 1000 mgProduct Wasted: _0__ mg Start Date: 04/05/18 Stop Date: 04/09/18 Status: Discontinued acetaminophen 1,000 mg, 2 tab, Route: PO, Drug form: TAB, Q6H, Dosing Weight 99.602, kg, Start date: 04/09/18 12:00:00 CDT, Duration: 30 day, Stop date: 05/09/18 6:00:00 CDT Notes: Max acetaminophen 4000 mg/day (4 gm/day). (Same as: Tylenol Extra Streng th) Start Date: 04/09/18 Stop Date: 04/10/18 Status: Discontinued ANES albuterol 0.083% inhalation solution 2.49 mg, Route: NEB, PRN, Dosing Weight 99.602, kg, PRN Respiratory Pathway, Sta rt date: 04/08/18 16:04:00 CDT, Duration: 30 day, Stop date: 05/08/18 16:03:00 C DT Start Date: 04/08/18 Stop Date: 04/08/18 Status: Discontinued ANES esmolol 10 mg, Route: IVP, Q5Min, Dosing Weight 99.602, kg, PRN Other -See Comment, Star t date: 04/08/18 16:04:00 CDT, Duration: 5 doses or times, Stop date: Limited # of times Start Date: 04/08/18 Stop Date: 04/08/18 Status: Discontinued ANES flumazenil 0.2 mg, Route: IVP, PRN, Dosing Weight 99.602, kg, PRN Benzodiazepine Reversal, Initial dose, Start date: 04/08/18 16:04:00 CDT, Duration: 30 day, Stop date: 16:03:00 CDT Start Date: 04/08/18 Stop Date: 04/08/18 Status: Discontinued ANES HYDROmorphone 0.5 mg, Route: IVP, Q5Min, Dosing Weight 99.602, kg, PRN, Start date: 04/08/18 1 6:04:00 CDT, Duration: 4 doses or times, Stop date: Limited # of times, Pain Sco re 4-10 Start Date: 04/08/18 Stop Date: 04/08/18 Status: Discontinued ANES metoprolol 1 mg, Route: IVP, Q5Min, Dosing Weight 99.602, kg, PRN Other -See Comment, Start date: 04/08/18 16:04:00 CDT, Duration: 5 doses or times, Stop date: Limited # of times Start Date: 04/08/18 Stop Date: 04/08/18 Status: Discontinued ANES naloxone 0.4 mg, Route: IVP, Q2MIN, Dosing Weight 99.602, kg, PRN Narcotic Reversal, Star t date: 04/08/18 16:04:00 CDT, Duration: 8 doses or times, Stop date: Limited # of times Start Date: 04/08/18 Stop Date: 04/08/18 Status: Discontinued ANES ondansetron 4 mg, Route: IVP, ONCE, Dosing Weight 99.602, kg, PRN Nausea & Vomiting, Start date: 04/08/18 16:04:00 CDT Start Date: 04/08/18 Stop Date: 04/08/18 Status: Discontinued ANES oxyCODONE 5 mg, Route: PO, Drug form: TAB, Q4H, Dosing Weight 99.602, kg, PRN Pain Score 4 -6, Start date: 04/08/18 16:04:00 CDT, Duration: 30 day, Stop date: 05/08/18 16: 03:00 CDT Start Date: 04/08/18 Stop Date: 04/08/18 Status: Discontinued ANES oxyCODONE 10 mg, Route: PO, Drug form: TAB, Q4H, Dosing Weight 99.602, kg, PRN Pain Score 7-10, Start date: 04/08/18 16:04:00 CDT, Duration: 30 day, Stop date: 05/08/18 1 6:03:00 CDT Start Date: 04/08/18 Stop Date: 04/08/18 Status: Discontinued ANES promethazine 6.25 mg, Route: IVPB, ONCE, Dosing Weight 99.602, kg, PRN Nausea & Vomiting, Start date: 04/08/18 16:04:00 CDT Start Date: 04/08/18 Stop Date: 04/08/18 Status: Discontinued Blistex Lip [place] Route: TOP, Dosing Weight 99.602, kg, PRN, PRN Dry Lips, Start date: 04/05/18 10 :00:00 CDT, Duration: 30 day, Stop date: 05/05/18 9:59:00 CDT Start Date: 04/05/18 Stop Date: 04/05/18 Status: Deleted Blistex topical ointment 1 appl, Route: TOP, PRN, Drug form: BALM, PRN Dry Lips, Start date: 04/05/18 10: 06:00 CDT, Duration: 30 day, Stop date: 05/05/18 10:05:00 CDT Notes: Same as: Blistex Start Date: 04/05/18 Stop Date: 04/10/18 Status: Discontinued carbidopa-levodopa 25 mg-100 mg oral tablet 1 tab, PO, BID, # 90 tab, 0 Refill(s) Start Date: 04/03/18 Stop Date: 04/05/18 Status: Discontinued carbidopa-levodopa 25 mg-100 mg oral tablet 1 tab, Route: PO, Drug Form: TAB, Dosing Weight 99.602, kg, BID, Start date: 9:00:00 CDT, Duration: 30 day, Stop date: 05/04/18 17:00:00 CDT Start Date: 04/05/18 Stop Date: 04/05/18 Status: Deleted carbidopa-levodopa 50 mg-200 mg oral tablet, extended release 1 tab, Route: PO, Drug Form: ERTAB, Dosing Weight 99.602, kg, BID, Start date: 0 04/05/18 11:00:00 CDT, Duration: 30 day, Stop date: 05/05/18 9:00:00 CDT Notes: "Do Not Crush" Take with milk or food. (Same As: Sinemet CR) Start Date: 04/05/18 Stop Date: 04/10/18 Status: Discontinued carbidopa-levodopa 50 mg-200 mg oral tablet, extended release 1 tab, PO, BID, # 60 tab, 0 Refill(s) Start Date: 04/05/18 Status: Ordered cefTRIAXone 1 gm, Route: IVPB, Drug form: PDR/INJ, ONCE, Dosing Weight 97.727, kg, Priority: STAT, Start date: 04/04/18 11:48:00 CDT, Stop date: 04/04/18 11:48:00 CDT, ABX Indication: Skin/Soft Tissue Infection Start Date: 04/04/18 Stop Date: 04/04/18 Status: Completed clindamycin 300 mg oral capsule 300 mg = 1 cap, PO, Q6H, X 10 day, # 40 cap, 0 Refill(s) Start Date: 04/10/18 Stop Date: 04/20/18 Status: Completed dexamethasone (ANES) Route: IV, Drug form: INJ, ONCE, Stop date: 04/08/18 16:48:00 CDT Start Date: 04/08/18 Stop Date: 04/08/18 Status: Completed famotidine (ANES) Route: IV, Drug form: INJ, ONCE, Stop date: 04/08/18 16:48:00 CDT Start Date: 04/08/18 Stop Date: 04/08/18 Status: Completed fentaNYL 50 microgram, Route: IV, ONCE, Dosing Weight 99.602, kg, Start date: 04/05/18 14 :54:00 CDT, Stop date: 04/05/18 14:54:00 CDT Start Date: 04/05/18 Stop Date: 04/05/18 Status: Completed fentaNYL (ANES) Route: IV, Drug form: INJ, ONCE, Stop date: 04/08/18 16:23:00 CDT Start Date: 04/08/18 Stop Date: 04/08/18 Status: Completed Flagyl 500 mg, 100 mL, Route: IVPB, Drug form: INJ, ONCE, Dosing Weight 97.727, kg, Gayathri ority: STAT, Start date: 04/04/18 13:13:00 CDT, Stop date: 04/04/18 13:13:00 CDT , ABX Indication: ED - Suspected Sepsis Notes: (Same as: Flagyl) Start Date: 04/04/18 Stop Date: 04/04/18 Status: Completed gabapentin 600 mg, 2 cap, Route: PO, Drug form: CAP, TID, Dosing Weight 99.602, kg, Start d ate: 04/05/18 13:00:00 CDT, Duration: 30 day, Stop date: 05/05/18 9:00:00 CDT Notes: (Same as: Neurontin) Start Date: 04/05/18 Stop Date: 04/05/18 Status: Discontinued gabapentin 600 mg, 2 cap, Route: PO, Drug form: CAP, QID, Dosing Weight 99.602, kg, Start d ate: 04/05/18 21:00:00 CDT, Duration: 30 day, Stop date: 05/05/18 17:00:00 CDT Notes: (Same as: Neurontin) Start Date: 04/05/18 Stop Date: 04/10/18 Status: Discontinued glycopyrrolate (ANES) Route: IV, Drug form: INJ, ONCE, Stop date: 04/08/18 17:45:00 CDT Start Date: 04/08/18 Stop Date: 04/08/18 Status: Completed ketOROLAC (ANES) IV, ONCE Start Date: 04/08/18 Stop Date: 04/08/18 Status: Completed Lactated Ringers Injection IV (ANES) 1000 mL Route: IV, Total Volume: 1,000, Start date: 04/08/18 15:21:00 CDT, Stop date: 16:21:00 CDT Start Date: 04/08/18 Stop Date: 04/08/18 Status: Completed Lactated Ringers IV 1,000 mL 1,000 mL, Rate: 125 ml/hr, Infuse over: 8 hr, Route: IV, Dosing Weight 97.727 kg , Total Volume: 1,000, Priority: STAT, Start date: 04/04/18 20:25:00 CDT, Durati on: 30 day, Stop date: 05/04/18 20:24:00 CDT, 2.16, m2 Start Date: 04/04/18 Stop Date: 04/08/18 Status: Discontinued levothyroxine 125 microgram, 1 tab, Route: PO, Drug form: TAB, [id number], Dosing Weight 99.602, k g, Start date: 04/05/18 9:30:00 CDT, Duration: 30 day, Stop date: 05/05/18 6:30: 00 CDT Notes: Take 1 hour before or 2 hours after meal; Enteral feeds may interefere wi th the absorption of this medication. (Same as:Levothroid) Start Date: 04/05/18 Stop Date: 04/10/18 Status: Discontinued levothyroxine 125 mcg (0.125 mg) oral tablet 125 microgram = 1 tab, PO, QAM, # 30 tab, 0 Refill(s) Start Date: 04/05/18 Stop Date: 10/10/18 Status: Discontinued lidocaine (ANES) Route: IV, Drug form: INJ, ONCE, Stop date: 04/08/18 16:23:00 CDT Start Date: 04/08/18 Stop Date: 04/08/18 Status: Completed Lovenox 40 mg, 0.4 mL, Route: SUB-Q, Drug form: INJ, [id number], Dosing Weight 99.602, kg, Start date: 04/09/18 7:00:00 CDT, Duration: 30 day, Stop date: 05/08/18 7:00:00 CDT Notes: (Same as: Lovenox) Start Date: 04/09/18 Stop Date: 04/10/18 Status: Discontinued midazolam (ANES) Route: IV, Drug form: SOLN, ONCE, Stop date: 04/08/18 16:18:00 CDT Start Date: 04/08/18 Stop Date: 04/08/18 Status: Completed neostigmine (ANES) Route: IV, Drug form: INJ, ONCE, Stop date: 04/08/18 17:45:00 CDT Start Date: 04/08/18 Stop Date: 04/08/18 Status: Completed normal saline 0.9% IV 1000 mL 1,000 mL, Rate: 100 ml/hr, Infuse over: 10 hr, Route: IV, Dosing Weight 97.727 k g, Total Volume: 1,000, Start date: 04/04/18 12:24:00 CDT, Duration: 30 day, Sto p date: 05/04/18 12:23:00 CDT, 2.16, m2 Start Date: 04/04/18 Stop Date: 04/04/18 Status: Discontinued ondansetron (ANES) Route: IV, Drug form: INJ, ONCE, Stop date: 04/08/18 17:43:00 CDT Start Date: 04/08/18 Stop Date: 04/08/18 Status: Completed oxyCODONE 5 mg oral tablet 5 mg, 1 tab, Route: PO, Drug form: TAB, Q6H, Dosing Weight 99.602, kg, PRN Pain Score 4-6, Start date: 04/07/18 9:55:00 CDT, Duration: 30 day, Stop date: 9:54:00 CDT Notes: (Same as: Roxicodone) Start Date: 04/07/18 Stop Date: 04/10/18 Status: Discontinued pantoprazole 40 mg oral enteric coated tablet 40 mg = 1 tab, PO, Daily, # 30 tab, 3 Refill(s) Start Date: 04/10/18 Stop Date: 10/10/18 Status: Discontinued phenylephrine (ANES) Route: IV, Drug form: INJ, ONCE, Stop date: 04/08/18 16:23:00 CDT Start Date: 04/08/18 Stop Date: 04/08/18 Status: Completed ProAir HFA 90 mcg/inh inhalation aerosol with adapter 2 puff, Route: INHALATION, Dosing Weight 99.602, kg, QID, Start date: 04/05/18 1 3:00:00 CDT, Duration: 30 day, Stop date: 05/05/18 9:00:00 CDT Start Date: 04/05/18 Stop Date: 04/05/18 Status: Canceled ProAir HFA 90 mcg/inh inhalation aerosol with adapter 2 puff, INHALER, Q6H, PRN wheezing, coughing, or shortness of breath, # 1 ea, 1 Refill(s) Start Date: 04/04/18 Status: Ordered propofol (ANES) Route: IV, Drug form: INJ, ONCE, Stop date: 04/08/18 16:23:00 CDT Start Date: 04/08/18 Stop Date: 04/08/18 Status: Completed Protonix 20 mg, Route: PO, Daily, Dosing Weight 99.602, kg, Start date: 04/06/18 9:00:00 CDT, Duration: 30 day, Stop date: 05/05/18 9:00:00 CDT Start Date: 04/06/18 Stop Date: 04/05/18 Status: Discontinued Protonix 40 mg, 1 tab, Route: PO, Drug form: ECTAB, Daily, Dosing Weight 99.602, kg, Star t date: 04/05/18 10:30:00 CDT, Duration: 30 day, Stop date: 05/05/18 9:00:00 CDT Notes: Tablet should not be chewed or crushed.(Same as: Protonix) Start Date: 04/05/18 Stop Date: 04/10/18 Status: Discontinued rocuronium (ANES) Route: IV, Drug form: INJ, ONCE, Stop date: 04/08/18 16:23:00 CDT Start Date: 04/08/18 Stop Date: 04/08/18 Status: Completed Saline Flush 0.9% 10 mL, Route: IVP, Drug Form: INJ, Dosing Weight 97.727, kg, PRN, PRN Line Flush , Start date: 04/04/18 11:48:00 CDT, Duration: 30 day, Stop date: 05/04/18 11:47 :00 CDT Notes: Same as: BD Posiflush Sterile Start Date: 04/04/18 Stop Date: 04/10/18 Status: Discontinued sertraline 100 mg, 1 tab, Route: PO, Drug form: TAB, Bedtime, Dosing Weight 99.602, kg, Sta rt date: 04/05/18 21:00:00 CDT, Duration: 30 day, Stop date: 05/04/18 21:00:00 C DT Notes: (Same as: Zoloft) Start Date: 04/05/18 Stop Date: 04/10/18 Status: Discontinued sertraline 100 mg oral tablet 100 mg = 1 tab, PO, Bedtime, # 30 tab, 0 Refill(s) Start Date: 04/05/18 Stop Date: 10/10/18 Status: Discontinued Sodium Chloride 0.9% (Bolus) IV 2,931.81 mL, 1954.54 ml/hr, Infuse Over: 1.5 hr, Route: IV, 2,931.81, Drug form: INJ, ONCE, Priority: STAT, Dosing Weight 97.727 kg, Start date: 04/04/18 11:48: 00 CDT, Stop date: 04/04/18 11:48:00 CDT Start Date: 04/04/18 Stop Date: 04/04/18 Status: Completed Sodium Chloride 0.9% IV (ANES) 100 mL + dexmedetomidine (ANES) 200 microgram Route: IV, Drug form: INJ, Start date: 04/08/18 15:32:00 CDT, Stop date: 8 16:32:00 CDT Start Date: 04/08/18 Stop Date: 04/08/18 Status: Completed Sodium Chloride 0.9% IV (ANES) 100 mL + ketAMINE (ANES) 10 mg Route: IV, Drug form: INJ, Start date: 04/08/18 15:32:00 CDT, Stop date: 8 16:32:00 CDT Start Date: 04/08/18 Stop Date: 04/08/18 Status: Completed Sodium Chloride 0.9% IV (ANES) 100 mL + vancomycin (ANES) 500 mg Route: IV, Drug form: INJ, Start date: 04/08/18 15:37:00 CDT, Stop date: 8 16:37:00 CDT Start Date: 04/08/18 Stop Date: 04/08/18 Status: Completed Sodium Chloride 0.9% IV 984.8 mL + M.V.I.-12 10 mL Daily + folic acid IV 1 mg Da kamron + thiamine IV 5 984.8 mL, Rate: 125 ml/hr, Infuse over: 8 hr, Route: IV, Dosing Weight 97.727 kg , Total Volume: 1,000, Start date: 04/04/18 20:10:00 CDT, Duration: 1 doses or t imes, Stop date: 04/05/18 4:09:00 CDT, 2.16, m2 Start Date: 04/04/18 Stop Date: 04/05/18 Status: Completed Symbicort 160/4.5 inhalation aerosol with adapter 2 inhalation, Route: INHALATION, Drug Form: AERO/A, Dosing Weight 99.602, kg, RB ID, Start date: 04/05/18 20:00:00 CDT, Duration: 30 day, Stop date: 05/05/18 8:0 0:00 CDT Notes: (Same as: Symbicort)WASTE: Aerosol - Return to Pharmacy Start Date: 04/05/18 Stop Date: 04/10/18 Status: Discontinued Symbicort 160/4.5 inhalation aerosol with adapter 2 puff, INHALATION, BID, # 1 ea, 1 Refill(s) Start Date: 04/04/18 Status: Ordered testosterone cypionate 200 mg/mL intramuscular solution 200 mg = 1 ml, IM, 0 Refill(s) Start Date: 04/05/18 Status: Ordered torsemide 20 mg, 1 tab, Route: PO, Drug form: TAB, Daily, Dosing Weight 99.602, kg, Start date: 04/05/18 10:00:00 CDT, Duration: 30 day, Stop date: 05/05/18 9:00:00 CDT Notes: (Same As: Demadex) Start Date: 04/05/18 Stop Date: 04/10/18 Status: Discontinued torsemide 20 mg oral tablet 20 mg = 1 tab, PO, Daily, # 30 tab, 1 Refill(s) Start Date: 04/05/18 Stop Date: 05/05/18 Status: Ordered tramadol 50 mg oral tablet 100 mg, Route: PO, Drug form: TAB, Q6H, Dosing Weight 99.602, kg, PRN Pain Score 4-6, Start date: 04/07/18 8:12:00 CDT, Duration: 30 day, Stop date: 05/07/18 8: 11:00 CDT Start Date: 04/07/18 Stop Date: 04/07/18 Status: Discontinued tramadol 50 mg oral tablet 50 mg = 1 tab, PO, Q6H, # 10 tab, 0 Refill(s) Start Date: 04/10/18 Stop Date: 04/17/18 Status: Completed valsartan 80 mg, 1 tab, Route: PO, Drug form: TAB, BID, Dosing Weight 99.602, kg, Start da te: 04/05/18 17:00:00 CDT, Duration: 30 day, Stop date: 05/05/18 9:00:00 CDT Notes: Same as Diovan Start Date: 04/05/18 Stop Date: 04/10/18 Status: Discontinued valsartan 80 mg oral tablet 80 mg = 1 tab, PO, BID, # 30 tab, 0 Refill(s) Start Date: 04/05/18 Status: Ordered vancomycin 500 mg, Route: IVPB, Drug form: PDR/INJ, [id number], Dosing Weight 97.727, kg, Star t date: 04/06/18 11:00:00 CDT, Duration: 30 day, Stop date: 05/06/18 4:00:00 CDT , ABX Indication: Skin/Soft Tissue Infection Notes: TIME CRITICAL MEDICATION(Same As: Vancocin)For adult patients only: Round to nearest 250 mg per Medical Staff approval Start Date: 04/06/18 Stop Date: 04/10/18 Status: Discontinued vancomycin 1 gm, Route: IVPB, Drug form: INJ, [id number], Dosing Weight 97.727, kg, Start date : 04/04/18 21:00:00 CDT, Duration: 30 day, Stop date: 05/04/18 10:00:00 CDT, ABX Indication: Skin/Soft Tissue Infection Notes: TIME CRITICAL MEDICATION(Same As: Vancocin)Infusion rate< 1000 mg: infuse over 1 [id number] - 1500 mg: infuse over 1.5 [id number] - 2000 mg: infuse over 2 hours> 2001 mg: infuse over 2.5 hoursFor adult patients only: Round to nearest 250 mg per Medical Staff approval MEDICATION WASTE Product Size: 1000 mgProduct Wasted: ___ mg Start Date: 04/04/18 Stop Date: 04/06/18 Status: Discontinued vancomycin + Sodium Chloride 0.9% IV 500 mL 2 gm, Route: IVPB, ONCE, Dosing Weight 97.727, kg, Priority: STAT, Start date: 0 04/04/18 13:13:00 CDT, Stop date: 04/04/18 13:13:00 CDT, ABX Indication: ED - [place] pected Sepsis Notes: TIME CRITICAL MEDICATION(Same As: Vancocin)Infusion rate< 1000 mg: infuse over 1 [id number] - 1500 mg: infuse over 1.5 hoursVancomycin FOR IV SET [id number] - 2000 mg: infuse over 2 hours> 2001 mg: infuse over 2.5 hoursFor adult patients only: Round to nearest 250 mg per Medical Staff approval MEDICATION WASTE Product Size: 1000 mgProduct Wasted: ___ mg Start Date: 04/04/18 Stop Date: 04/04/18 Status: Completed Versed 1 mg, Route: IV, ONCE, Dosing Weight 99.602, kg, Start date: 04/05/18 14:54:00 C DT, Stop date: 04/05/18 14:54:00 CDT Start Date: 04/05/18 Stop Date: 04/05/18 Status: Completed Visipaque 320mg/ml 100 mL, Route: IVP, Drug Form: SOLN, Dosing Weight 97.727, kg, ONCALL, STAT, Sta rt date: 04/04/18 14:49:00 CDT, Duration: 1 doses or times, Dose = 2.2ml/kg, Ma x dose = 100ml -- "To be infused by Radiology Staff ONLY" Start Date: 04/04/18 Stop Date: 04/04/18 Status: Completed Zoloft 25 mg, 1 tab, Route: PO, Drug form: TAB, Bedtime, Dosing Weight 99.602, kg, PRN Sleep, Start date: 04/09/18 16:53:00 CDT, Duration: 30 day, Stop date: 05/09/18 16:52:00 CDT Notes: (Same as: Zoloft) Start Date: 04/09/18 Stop Date: 04/09/18 Status: Discontinued Results BLOOD BANK RESULTS 1 2 3 Most recent to oldest [Reference Range]: A POS *Unknown* (04/08/18 12:40 AM) ABO/Rh Negative (04/08/18 12:40 AM) Antibody Scrn ELECTROLYTES 1 2 3 Most recent to oldest [Reference Range]: 140 mEq/L (04/10/18 6:50 AM) 141 mEq/L (04/08/18 12:40 AM) 143 mEq/L (04/06/18 4:36 AM) Sodium Lvl [135-145 mEq/L] 3.8 mEq/L (04/10/18 6:50 AM) 4.8 mEq/L (04/08/18 12:40 AM) 4.2 mEq/L (04/06/18 4:36 AM) Potassium Lvl [3.5-5.1 mEq/L] 105 mEq/L (04/10/18 6:50 AM) 106 mEq/L (04/08/18 12:40 AM) 106 mEq/L (04/06/18 4:36 AM) Chloride Lvl [95-109 mEq/L] 23 mEq/L *LOW* (04/10/18 6:50 AM) 29 mEq/L (04/08/18 12:40 AM) 25 mEq/L (04/06/18 4:36 AM) CO2 [24-32 mEq/L] 15.8 mEq/L (04/10/18 6:50 AM) 10.8 mEq/L (04/08/18 12:40 AM) 16.2 mEq/L (04/06/18 4:36 AM) AGAP [10.0-20.0 mEq/L] CHEM PANEL 1 2 3 Most recent to oldest [Reference Range]: 1.44 mg/dL *HI* (04/10/18 6:50 AM) 1.02 mg/dL (04/08/18 12:40 AM) 1.32 mg/dL (04/06/18 4:36 AM) Creatinine Lvl [0.50-1.40 mg/dL] 48 mL/min/1.73m2 1 *NA* (04/10/18 6:50 AM) 73 mL/min/1.73m2 2 *NA* (04/08/18 12:40 AM) 53 mL/min/1.73m2 3 *NA* (04/06/18 4:36 AM) eGFR 16 mg/dL (04/10/18 6:50 AM) 11 mg/dL (04/08/18 12:40 AM) 18 mg/dL (04/06/18 4:36 AM) BUN [7-22 mg/dL] 15 (04/04/18 12:01 PM) B/C Ratio [6-25] 104 mg/dL *HI* (04/10/18 6:50 AM) 78 mg/dL (04/08/18 12:40 AM) 98 mg/dL (04/06/18 4:36 AM) Glucose Lvl [70-99 mg/dL] 8.3 g/dL (04/04/18 12:01 PM) Total Protein [6.4-8.4 g/dL] 2.9 g/dL *LOW* (04/04/18 12:01 PM) Albumin Lvl [3.5-5.0 g/dL] 5.4 g/dL *HI* (04/04/18 12:01 PM) Globulin [2.7-4.2 g/dL] 0.5 *LOW* (04/04/18 12:01 PM) A/G Ratio [0.7-1.6] 7.9 mg/dL *LOW* (04/10/18 6:50 AM) 8.4 mg/dL *LOW* (04/08/18 12:40 AM) 8.8 mg/dL (04/06/18 4:36 AM) Calcium Lvl [8.5-10.5 mg/dL] 10 unit/L (04/04/18 12:01 PM) ALT [0-65 unit/L] 22 unit/L (04/04/18 12:01 PM) AST [0-37 unit/L] 63 unit/L (04/04/18 12:01 PM) Alk Phos [39-136 unit/L] 0.4 mg/dL (04/04/18 12:01 PM) Bili Total [0.2-1.3 mg/dL] 1.9 mMol/L (04/04/18 12:01 PM) Lactic Acid Lvl [0.5-2.2 mMol/L] <0.05 ng/mL (04/04/18 12:01 PM) Procalcitonin Lvl [0.00-0.10 ng/mL] 1Result Comment: The eGFR is calculated using [...] be mul tiplied by the estimated BMI. TOXICOLOGY 1 2 3 Most recent to oldest [Reference Range]: *NA* (04/10/18 3:54 AM) * *NA* (04/08/18 12:40 AM) 2200 *NA* (04/05/18 9:26 PM) [facility] 17.0 [facility]/ml *NA* (04/10/18 3:54 AM) 21.5 ug/ml *NA* (04/08/18 12:40 AM) 20.9 ug/ml *NA* (04/05/18 9:26 PM) [facility] URINE AND STOOL 1 2 3 Most recent to oldest [Reference Range]: Clear (04/04/18 4:50 PM) UA Turbidity [Clear] Yellow *NA* (04/04/18 4:50 PM) UA Color [Yellow] 6.0 (04/04/18 4:50 PM) UA pH [5.0-8.0] <=1.005 *NA* (04/04/18 4:50 PM) UA Spec Grav [<=1.030] Negative (04/04/18 4:50 PM) UA Glucose [Negative] Negative (04/04/18 4:50 PM) UA Blood [Negative] Negative *NA* (04/04/18 4:50 PM) UA Ketones [Negative] Negative (04/04/18 4:50 PM) UA Protein [Negative] 1.0 EU/dL (04/04/18 4:50 PM) UA Urobilinogen [0.1-1.0 EU/dL] Negative *NA* (04/04/18 4:50 PM) UA Bili [Negative] Negative (04/04/18 4:50 PM) UA Leuk Est [Negative] Negative (04/04/18 4:50 PM) UA Nitrite [Negative] 0-1 *NA* (04/04/18 4:50 PM) UA WBC None Seen (04/04/18 4:50 PM) UA RBC [0-2] None Seen (04/04/18 4:50 PM) UA Bacteria [None Seen] Few /LPF (04/04/18 4:50 PM) UA Sq Epi [Few /LPF] None Seen (04/04/18 4:50 PM) UA Mucus [None Seen] HEMATOLOGY 1 2 3 Most recent to oldest [Reference Range]: 11.8 K/CMM *HI* (04/10/18 6:50 AM) 9.2 K/CMM (04/08/18 12:40 AM) 10.2 K/CMM (04/06/18 4:36 AM) WBC [3.7-10.4 K/CMM] 4.28 M/CMM *LOW* (04/10/18 6:50 AM) 4.44 M/CMM *LOW* (04/08/18 12:40 AM) 4.74 M/CMM (04/06/18 4:36 AM) RBC [4.70-6.10 M/CMM] 10.5 g/dL *LOW* (04/10/18 6:50 AM) 10.9 g/dL *LOW* (04/08/18 12:40 AM) 11.9 g/dL *LOW* (04/06/18 4:36 AM) Hgb [14.0-18.0 g/dL] 34.0 % *LOW* (04/10/18 6:50 AM) 34.3 % *LOW* (04/08/18 12:40 AM) 37.3 % *LOW* (04/06/18 4:36 AM) Hct [42.0-54.0 %] 79.4 fL *LOW* (04/10/18 6:50 AM) 77.2 fL *LOW* (04/08/18 12:40 AM) 78.8 fL *LOW* (04/06/18 4:36 AM) MCV [80.0-94.0 fL] 24.6 pg *LOW* (04/10/18 6:50 AM) 24.6 pg *LOW* (04/08/18 12:40 AM) 25.1 pg *LOW* (04/06/18 4:36 AM) MCH [27.0-31.0 pg] 31.0 g/dL *LOW* (04/10/18 6:50 AM) 31.8 g/dL *LOW* (04/08/18 12:40 AM) 31.8 g/dL *LOW* (04/06/18 4:36 AM) MCHC [32.0-36.0 g/dL] 18.4 % *HI* (04/10/18 6:50 AM) 18.4 % *HI* (04/08/18 12:40 AM) 18.6 % *HI* (04/06/18 4:36 AM) RDW [11.5-14.5 %] 7.5 fL (04/10/18 6:50 AM) 7.2 fL *LOW* (04/08/18 12:40 AM) 7.8 fL (04/06/18 4:36 AM) MPV [7.4-10.4 fL] 366 K/CMM (04/10/18 6:50 AM) 385 K/CMM (04/08/18 12:40 AM) 365 K/CMM (04/06/18 4:36 AM) Platelet [133-450 K/CMM] 76.0 % *HI* (04/10/18 6:50 AM) 70.4 % (04/08/18 12:40 AM) 74.6 % (04/06/18 4:36 AM) Segs [45.0-75.0 %] 11.2 % *LOW* (04/10/18 6:50 AM) 16.9 % *LOW* (04/08/18 12:40 AM) 14.2 % *LOW* (04/06/18 4:36 AM) Lymphocytes [20.0-40.0 %] 7.6 % (04/10/18 6:50 AM) 7.6 % (04/08/18 12:40 AM) 7.7 % (04/06/18 4:36 AM) Monocytes [2.0-12.0 %] 4.7 % *HI* (04/10/18 6:50 AM) 3.9 % (04/08/18 12:40 AM) 2.5 % (04/06/18 4:36 AM) Eosinophils [0.0-4.0 %] 0.5 % (04/10/18 6:50 AM) 1.2 % *HI* (04/08/18 12:40 AM) 1.0 % (04/06/18 4:36 AM) Basophils [0.0-1.0 %] 8.9 K/CMM *HI* (04/10/18 6:50 AM) 6.5 K/CMM (04/08/18 12:40 AM) 7.6 K/CMM (04/06/18 4:36 AM) Neutrophils # [1.5-8.1 K/CMM] 1.3 K/CMM (04/10/18 6:50 AM) 1.5 K/CMM (04/08/18 12:40 AM) 1.5 K/CMM (04/06/18 4:36 AM) Lymphocytes # [1.0-5.5 K/CMM] 0.9 K/CMM *HI* (04/10/18 6:50 AM) 0.7 K/CMM (04/08/18 12:40 AM) 0.8 K/CMM (04/06/18 4:36 AM) Monocytes # [0.0-0.8 K/CMM] 0.6 K/CMM *HI* (04/10/18 6:50 AM) 0.4 K/CMM (04/08/18 12:40 AM) 0.3 K/CMM (04/06/18 4:36 AM) Eosinophils # [0.0-0.5 K/CMM] 0.1 K/CMM (04/10/18 6:50 AM) 0.1 K/CMM (04/08/18 12:40 AM) 0.1 K/CMM (04/06/18 4:36 AM) Basophils # [0.0-0.2 K/CMM] 1+ *ABN* (04/08/18 12:40 AM) 1+ *ABN* (04/06/18 4:36 AM) 1+ *ABN* (04/05/18 4:33 AM) Microcyte [None Seen] 13.9 seconds (04/08/18 12:40 AM) 24.8 seconds *HI* (04/04/18 8:45 PM) 27.5 seconds *HI* (04/04/18 12:01 PM) PT [12.0-14.7 seconds] 1.07 (04/08/18 12:40 AM) 2.21 *HI* (04/04/18 8:45 PM) 2.52 *HI* (04/04/18 12:01 PM) INR [0.85-1.17] 46.7 seconds *HI* (04/08/18 12:40 AM) 60.2 seconds *HI* (04/04/18 8:45 PM) 74.4 seconds *HI* (04/04/18 12:01 PM) PTT [22.9-35.8 seconds] MOLECULAR DIAGNOSTIC 1 2 3 Most recent to oldest [Reference Range]: Negative (04/05/18 7:24 PM) C difficile DNA [Negative] Microbiology Reports TEST: Culture: Aspirate/Body Fluid/Tissue STATUS: Auth (Verified) BODY SITE: SOURCE: FLUID COLLECTED DATE/TIME: 04/05/18 3:04 PM FINAL REPORT No Growth STAIN REPORT Gram Stain Performed By: [facility] Immunizations No data available for this section Procedures Procedure Date Related Diagnosis Body Site Status Image-guided fluid collection drainage by 04/05/18 Completed catheter (eg, abscess, hematoma, seroma , lymphocele, cyst); peritoneal or retroperitoneal, percutaneous Hernia repair 12/15/16 Completed Hernia repair 10/05/16 [...] Last 365 Days Yes; 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 -discharge pending home health approval -pain control: MMT -regular diet -encourage ambulation Franck Ruff MD, R1 Pager [phone] Addendum by Benjie Siddiqui Dr. Todd David Wilson, t he surgical faculty physician for this patient have seen and Fabien Jonas examined the patient with MD on Dr. Ruff, reviewed the ab ove note, and agree with the assessment and plan. 04/17/2018 09:58 CDT Extracted from: Title: [facility] Consult Note Author: Teresosergiojeferson Nirav Anyapage baker Date: 04/04/18 Admitting Physician: Fabien Siddiqui MD [...] numbness, tingling, weakness Physical Exam Vital Signs: VitalsTmp(F)[id number] 04/04 18:56----[id number]--- 04/04 18:0498.240094/5618------ 04/04 15:43----[id number]--- 04/04 14:[id number]--- 04/04 13:13 95--- 24 Hr Tmax: 98.4F (36.89c) at 04/04 18:0 4Vital Signs are the last 5 in the [...] erythema likely infected seroma Plan: -admit to [facility] B surgery -9 Marks -hold xeralto -conult IR for possible drainage vs cult ure -pain control: MMT -mIVF -IV abx Nirav Akbar MD PGY1, [phone] Pager [phone] I, Dr. Fabien Siddiqui, the surgical faculty physician for this patient have seen and examined the patient with Dr. Akbar, reviewed the above note, and agree with the assessment and plan.
[2020-01-19] MEDS ORDERED: MIDAZOLAM HCL 2 MG/2 ML VIAL ONE (13:52)
[2020-01-19] MEDS ORDERED: FENTANYL CITRATE/PF 100MCG/2 ML INJ ONE ×2 (13:52→13:58)
--- OUTSIDE RECORDS SUMMARY | 2020-01-19 13:53 | XMS REPORT | Summary of Care ---
Author Author SHARIF Veloz, SIMON DANIEL Organization Unknown Address Unknown Phone Unavailable Care Team Providers Care Manager Creative Name Role Phone NIGEL OLGUIN M.D. Unavailable Unavailable TANMAY DIAZ MD Unavailable Unavailable LEA OLGUIN MD Unavailable Unavailable NIGEL OLGUIN MD Unavailable Unavailable [facility] Unavailable Unavaila ble Unavailable Unavailable Functional Status Name Dates Details Functional status health issues are not documented Status: Name Dates Details Cognitive status health issues are not d ocumented Status: Problems Name Dates Details Morbid obesity (278.01, E66.01) Status: Active Abdominal wall abscess (682.2, L02.211) Status: Active Wound, open, abdominal wall, anterior (8 79.2, S31.109A) Status: Active Encounter for management of wound VAC Status: Active MRSA (methicillin resistant Staphylococc us aureus) (041.12, A49.02) Status: Active Testosterone deficiency (259.9, E34.9) Status: Active 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 * Start : 30-Mar-2008 Active Metoprolol Tartrate 25 MG Oral Tablet TAKE 1 TABLET BY MOUTH TWICE DAILY * Quantity: 180 Refills: 3 Active Tylenol with Codeine #3 300-30 MG Oral Tablet * Refills: 0 Active Valsartan TABS * Refills: 0 Active Xarelto TABS * Refills: 0 Active Sertraline HCl TABS * Refills: 0 Active Torsemide TABS * Refills: 0 Active Gabapentin TABS * Refills: 0 Active L-Thyroxine Sodium 125 MCG TABS * Refills: 0 Active Omeprazole 20 MG Oral Tablet Delayed Release * Refills: 0 Active Ranitidine TABS * Refills: 0 Active Carbidopa-Levodopa TABS * Refills: 0 Active ProAir HFA AERS * Refills: 0 Active Symbicort AERO * Refills: 0 Active Veltassa 8.4 GM Oral Packet * Refills: 0 Active Allergies and Adverse Reactions Name Dates Details No Known Drug Allergies (Allergy) Status : Active Past Medical History Name Dates Details Abdominal wall abscess (682.2, L02.211) Status: Active Procedures Procedure Dates Details History of Ventral hernia repair Complet ed History of Laparoscopic adjustable gastric banding Completed Immunization Name Dates Details PPD Lot #: [id number] on: 30-Mar-2008 Social History Name Dates Details - Status: Name Dates Details Former smoker Never smoker Vital Signs Date Test Result Details [id number] BP Systolic 130 mm[Hg] Status: Comments: Lo cation: LUE; Position: Sitting BP Diastolic 93 mm[Hg] Status: Comments: Lo cation: LUE; Position: Sitting Height 66 in Status: Weight 254.125 lb Status: Body Mass Index Calculated 41.02 kg/m2 Status: Body Surface Area Calculated 2.21 m2 Status: Temperature 97.4 f Status: Comments: Me thod: Oral Heart Rate 76 /min Status: Results Date Description Value Details Results not documented Plan of Care Name Dates Details Planned Observations Planned Goals not documented Interventions Provided Plan* 1. Return to clinic PRN. * 2. Continue wound care as per wound care doctor. Instructions Name Dates Details Instructions not documented Encounters Appointment; GERONIMO MCCABE NP Encounter Diagnosis: Problem not documented On: 26-Feb-2018 12:00 Appointment; NIGEL OLGUIN M.D. Encounter Diagnosis: Problem not documented On: 26-Apr-2018 11:15 Appointment; NIGEL OLGUIN M.D. Encounter Diagnosis: Problem not documented On: 03-May-2018 11:00 Appointment; NIGEL OLGUIN M.D. Encounter Diagnosis: Problem not documented On: 31-May-2018 7:45 Appointment; NIGEL OLGUIN M.D. Encounter Diagnosis: Problem not documented On: 16-Jul-2018 15:00 Appointment; NIGEL OLGUIN M.D. Encounter Diagnosis: Problem not documented On: 25-Jul-2018 11:00 Appointment; NIGEL OLGUIN M.D. Encounter Diagnosis: Problem not documented On: 30-Jul-2018 11:30 Appointment; NIGEL OLGUIN M.D. Encounter Diagnosis: Problem not documented On: 16-Aug-2018 12:00 Appointment; NIGEL OLGUIN M.D. Encounter Diagnosis: Problem not documented On: 30-Aug-2018 10:30 Appointment; NIGEL OLGUIN M.D. Encounter Diagnosis: Problem not documented On: 10-Sep-2018 11:30 Appointment; NIGEL OLGUIN M.D. Encounter Diagnosis: Problem not documented On: 17-Sep-2018 11:30 Appointment; NIGEL OLGUIN M.D. Encounter Diagnosis: Problem not documented On: 24-Sep-2018 11:30 Appointment; NIGEL OLGUIN M.D. Encounter Diagnosis: Problem not documented On: 30-Sep-2018 11:00 Appointment; NIGEL OLGUIN M.D. Encounter Diagnosis: Problem not documented On: 15-Oct-2018 11:30 Appointment; NIGEL OLGUIN M.D. Encounter Diagnosis: Problem not documented On: 29-Oct-2018 11:30 Appointment; NIGEL OLGUIN M.D. Encounter Diagnosis: Problem not documented On: 12-Nov-2018 11:30 Appointment; BASHIR MINOR M.D. Encounter Diagnosis: Problem not documented On: 20-Nov-2018 8:00 Appointment; NIGEL OLGUIN M.D. Encounter Diagnosis: Problem not documented On: 29-Nov-2018 11:00 Appointment; NIGEL OLGUIN M.D. Encounter Diagnosis: Problem not documented On: 03-Dec-2018 11:30 Appointment; NIGEL OLGUIN M.D. Encounter Diagnosis: Problem not documented On: 03-Jan-2019 11:00 Appointment; NIGEL OLGUIN M.D. Encounter Diagnosis: Problem not documented On: 13-May-2019 9:15 Appointment; NIGEL OLGUIN M.D. Encounter Diagnosis: Problem not documented On: 02-Jun-2019 13:00 Appointment; NIGEL OLGUIN M.D. Encounter Diagnosis: Problem not documented On: 24-Jun-2019 14:30 Appointment; NIGEL OLGUIN M.D. Encounter Diagnosis: Problem not documented On: 15-Jul-2019 12:30 Appointment; NIGEL OLGUIN M.D. Encounter Diagnosis: Problem not documented On: 16-Sep-2019 12:30
--- OUTSIDE RECORDS SUMMARY | 2020-01-19 13:53 | XMS REPORT | Continuity of Care Document ---
Author Author [facility] t Organization [facility] Address [address] [place] [address] Phone Unavailable Care Team Providers Care Sprinkler Repair Technician Name Role Phone EMILY GONZALEZ, TANMAY PCP BASHIR CADET Attphys Unavailable Alex Lowery Attphys NIGEL OLGUIN M.D. Attphys Unavailable TANMAY DIAZ Attphys Unavailable Ildefonso GONZALEZ, [facility] Anabell Attphys Serafin Olguin Attphys BASHIR MINOR M.D. Attphys Unavailable JUSTIN VALENZUELA Attphys Unavailable Jas Lowe Attphys Jan THURSTON Attphys Unavailable Ferny Rubio Attphys Shanika Acharya Attphys Bashir Olguin Attphys Link Bautista Attphys GERONIMO MCCABE APRN Attphys Unavailable GERONIMO MCCABE NP Attphys Unavailable Christopher Zamora Attphys Linh Lopez Attphys VAISHALI GARCIA Attphys Unavailable Christopher Munoz Attphys Alex CARLSON Attphys Unavailable Dave PINZON Attphys Unavailable Claude Dorothyisaias Molina Attphys HARLAN KENDALL M.D. Attphys Unavailable Oumar Parnell Sr Attphys Serafin Olguin Admphys Jas Lowe Admphys Shanika Acharya Admphys Bashir Olguin Admphys DONITA PARRA-(NISA) Admphys Unavailable Christopher Munoz Admphys Oumar Parnell Sr Admphys Payers Payer Name Policy Type Policy Number Effective Date Expiration Date S sergey UHC MEDICAREUHC MEDICARE HMO/PPOxxxxxxxxx/08/2017-PresentO xxxxxxxxx 2017 00:00:00 [facility] [id number] 2017 00:00:00 [facility] Problems Condition Name Condition Details Condition Category Status Onset Date Resolution Date Last Treatment Date Treating Clinician Comments Source WOUNDS WOUN DS Active 09/10/2019 [facility] Diagnosis Active 2019-09-10 00:00:00 2019-10-01 08:50:00 [facility] W[facility] W[facility] D Active 08/11/2019 [facility] Diagnosis Active 2019-08-11 00:00:00 2019-08-20 11:09:00 [facility] [place] WONDS WOND S Active 06/25/2019 [facility] Diagnosis Active 2019-06-25 00:00:00 2019-07-23 10:59:00 [facility] FOLLOW UP FOLL OW UP Active 06/05/2019 [facility] Diagnosis Active 2019-06-05 00:00:00 2019-06-26 09:23:00 Syed Sprague UNSPECIFIED OPEN WOUND OF ABDOMINAL WALL UNSPECIFIED OPEN WOUND OF ABDOMINAL WALL Active 05/15/2019 [facility] Diagnosis Active 2019-05-15 00:00:00 2019-06-12 22:29:00 Syed Sprague OPEN WOUND FOR 6 MONTHS OPEN WOUND FOR 6 MONTHS Active 03/12/2019 [facility] Diagnosis Active 2019-03-12 00:00:00 2019-06-04 11:32:00 Syed Sprague ACUTE SEPSIS, PNA (PNEUMONIA), SOB (SHOR ACUTE SEPSIS, PNA (PNEUMONIA), SOB (SHOR Active 10/06/2018 [facility] Diagnosis Ac tive 2018-10-06 00:00:00 2018-10-18 22:20:00 M crystal Sprague OPEN ABD WOUND OPEN ABD WOUND Active 09/25/2018 [facility] Diagnosis Active 2018-09-25 00:00:00 2018-11-01 2 2:00:00 [facility] WOUND ABD WOUN D ABD Active 09/10/2018 [facility] Diagnosis Active 2018-09-10 00:00:00 2018-10-26 15:21:00 Syed Sprague PERITONEAL ABSCESS DENISSE TONEAL ABSCESS Active 09/03/2018 [facility] Diagnosis Active 2018-09-03 00:00:00 2018-09-04 06:39:00 Syed Sprague PERITONITIS DENISSE TONITIS Active 09/03/2018 [facility] Diagnosis Active 2018-09-03 00:00:00 2018-09-18 22:36:00 Syed Sprague CUTANEOUS ABSCESS OF ABDOMINAL WALL CUTANEOUS ABSCESS OF ABDOMINAL WALL Active 07/16/2018 [facility] Diagnosis Acti ve 2018-07-16 00:00:00 2018-07-31 22:26:00 M crystal Sprague DX: [id number] (PRIMARY) HYPERTENSION DX: [id number] (PRIMARY) HYPERTENSION Active 06/24/2018 [facility] Diagnosis Active 2018-06-24 00:00:00 2018-06-28 11:54:00 Syed Sprague FEVER/ ABDOMINAL FEVE R/ ABDOMINAL Active 04/04/2018 [facility] Diagnosis Active 2018-04-04 00:00:00 2018-04-15 2 1:44:00 Syed Sprague SOB (shortness of breath) on exertion SOB (shortness of crystal th) on exertion Disease Active 2017-08-20 00:00:00 [facility] HIP HIP Active 08/13/2017 [facility] Diagnosis Active 2017-08-13 08:00:00 2018-02-18 14:26:00 [facility] [address] SAH/SCALP LAC SAH/ SCALP LAC Active 08/13/2017 [facility] Diagnosis Active 2017-08-13 00:00:00 2017-08-21 2 1:57:00 [facility] LFLT TRANSFER #[id number] LFLT TRANSFER #[id number] Active 08/13/2017 [facility] Diagnosis Active 2017-08-13 00:00:00 2017-08-15 10:07:00 [facility] BEDDED OUTPATIENT/EVALUATION FOR DRAIN P BEDDED OUTPATIENT/EVALUATION FOR DRAIN P Active 02/16/2017 [facility] Diagnosis Active 2017-02-16 00:00:00 2017-02-16 11:58:00 [facility] OUTPATIENT/EVALUATION FRO DRAIN PLACEMEN OUTPATIENT/EVALUATION FRO DRAIN PLACEMEN Active 02/07/2017 [facility] Diagnosis Active 2017-02-07 00:00:00 2017-02-08 07:24:00 [facility] VENTRAL HERNIA VENT RAL HERNIA Active 09/19/2016 [facility] Diagnosis Active 2016-09-19 00:00:00 2016-10-23 1 4:55:00 [facility] SBO/HERNIA SBO/ HERNIA Active 09/07/2016 [facility] Diagnosis Active 2016-09-07 00:00:00 2016-09-08 10:01:00 [facility] Atrial fibrillation with RVR Atrial fibrillation with RVR Disease Active 2016-08-14 00:00:00 [facility] Atrial fibrillation Atrial fibrillation Problem Active [facility] Supraventricular tachycardia SVT (supraventricular tachycardia) Pro blem Active [facility] Testosterone deficiency Testosterone deficiency Problem Active [facility] Testicular pain Testicular pain Problem Active [facility] Persistent testicular pain Persistent testicular pain Problem Active [facility] Abdominal wall abscess Abdominal wall abscess Problem Active [facility] Encounter for management of wound VAC Encounter for manageme nt of wound VAC Problem Active [facility] Morbid obesity Morbid obesity Problem Active [facility] MRSA (methicillin resistant Staphylococcus aureus) MRS A (methicillin resistant Staphylococcus aureus) Problem Active [facility] Wound, open, abdominal wall, anterior Wound, open, abdominal wall, anterior Problem Active [facility] Peritoneal abscess Denisse toneal abscess 03/26/2019 [facility] Problem 2019-03-26 15:23:47 De bijan Sprague Body mass index (BMI) 40.0-44.9, adult Body mass index (BMI) 40.0-44.9, adult 03/26/2019 [facility] 2019-03-26 15:23:47 [facility] Hypothyroidism, unspecified Hy pothyroidism, unspecified 03/26/2019 [facility] 2019-03-26 15:23:47 [facility] Gastro-esophageal reflux disease without esophagitis Gastro-esophageal reflux disease without esophagitis 03/26/2019 [facility] 2019-03-26 15:23:47 [facility] Parkinson's disease Park inson's disease 03/26/2019 [facility] 15:23:47 [facility] Obstructive sleep apnea (adult) (pediatric) Obstructive sleep apnea (adult) (pediatric) 03/26/2019 [facility] 2019-03-26 15:23:47 [facility] Chronic obstructive pulmonary disease, unspecified Chronic obstructive pulmonary disease, unspecified 03/26/2019 [facility] 2019-03-26 15:23:47 [facility] Unspecified atrial fibrillation Unspecified atrial fibrillation 03/26/2019 [facility] 2019-03-26 15:23:47 [facility] Chronic kidney disease, stage 3 (moderate) Chronic kidney disease, stage 3 (moderate) 03/26/2019 [facility] 2019-03-26 15:23:47 Jorge Sprague Methicillin resistant Staphylococcus aur eus infection as the cause of diseases classified elsewhere Methicillin resi stant Staphylococcus aureus infection as the cause of diseases classified elsewhere 03/26/2019 [facility] 2019-03-26 15:23:4 7 [facility] Proteus (mirabilis) (morganii) as the cause of disease s classified elsewhere Proteus (mirabilis) (morganii) as the cause of diseases classified elsewhere 03/26/2019 [facility] 2019-03-26 15:23:47 [facility] Alcohol abuse, uncomplicated A lcohol abuse, uncomplicated 03/26/2019 [facility] 2019-03-26 15:23:47 [facility] Obesity, unspecified Obes ity, unspecified 03/26/2019 [facility] 15:23:47 [facility] Hypertensive chronic kidney disease with stage 1 through stage 4 chronic kidney disease, or unspecified chronic kidney disease Hypertensive chronic kidney disease with stage 1 through stage 4 chronic kidney disease, or unspecified chronic kidney disease 03/26/2019 [facility] 2019-03-26 15:23:47 Syed Sprague Anemia in chronic kidney disease Anemia in chronic kidney disease 03/26/2019 [facility] 2019-03-13 4 15:23:47 Syed Sprague 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) use of anticoagulants assisted (current) use of anticoagulants 03/26/2019 [facility] 2019-03-26 15:23:47 Syed Sprague Tobacco use Toba international accountant use 03/26/2019 [facility] 2019-03-26 15:23:47 Floyd Sprague Peritonitis, unspecified Denisse tonitis, unspecified 03/26/2019 [facility] 2019-03-26 15:23:47 Syed Sprague Disruption of internal operation (surgic al) wound, not elsewhere classified, subsequent encounter Disruption of in ternal operation (surgical) wound, not elsewhere classified, subsequent encounter 03/26/2019 [facility] 2019-03-26 11:15:58 De bijan Sprague Essential (primary) hypertension Essential (primary) hypertension 03/26/2019 [facility] 2019-03-26 11:15:58 Syed Sprague Enterococcus as the cause of diseases classified elsew here Enterococcus as the cause of diseases classified elsewhere 03/26/2019 [facility] 2019-03-26 11:15:58 De bijan Sprague 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 03/26/2019 [facility] 2019-03-26 11 :15:58 Syed Sprague Pain in left hip Pain in left hip 10/06/2018 [facility] 2018-10-06 12:36:42 Syed Sprague Muscle weakness (generalized) Muscle weakness (generalized) 10/06/2018 [facility] 2018-09 12:36:42 Syed Sprague Stiffness of left hip, not elsewhere classified Stiffness of left hip, not elsewhere classified 10/06/2018 [facility] Problem 2018-10-06 12:36:42 Syed Sprague Difficulty in walking, not elsewhere classified Difficulty in walking, not elsewhere classified 10/06/2018 [facility] 2018-10-06 12:36:42 Syed Sprague Cutaneous abscess of abdominal wall Cutaneous abscess of abdominal wall 02/12/2019 [facility] Problem 2019-02-12 15:03:11 Syed Sprague Chronic kidney disease, unspecified Chronic kidney disease, unspecified 02/12/2019 [facility] Problem 2019-02-12 15:03:11 Syed Sprague Hyperkalemia Hype rkalemia 02/12/2019 [facility] Problem 2019-02-12 15:03:11 Jorge Sprague Personal history of nicotine dependence Personal history of nicotine dependence 02/12/2019 [facility] Problem 2019-02-12 15:03:11 Syed Sprague Sepsis, unspecified organism S epsis, unspecified organism 10/28/2018 [facility] Problem 2018-10-28 12:49:34 Syed Sprague Hypertensive 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 and stage 1 through stage 4 chronic kidney disease, or unspecified chronic kidney disease Hypertensive heart and chronic kidney disease with heart failure and stage 1 through stage 4 chronic kidney disease, or unspecified chronic kidney disease 10/28/2018 [facility] Problem 2018-10-28 12:49:34 Syed Sprague Postprocedural hematoma of skin and subc utaneous tissue following other procedure Postprocedural h ematoma of skin and subcutaneous tissue following other procedure 10/28/2018 [facility] Problem 2018-10-28 12:49:34 Jorge Sprague Heart failure, unspecified Hea rt failure, unspecified 10/28/2018 [facility] Problem 2018-10-28 12 :49:34 Syed Sprague Bariatric surgery status Marc atric surgery status 10/28/2018 [facility] Problem 2018-10-28 12 :49:34 Syed Sprague Nicotine dependence, chewing tobacco, uncomplicated Nicotine dependence, chewing tobacco, uncomplicated 10/28/2018 [facility] Problem 2018-10-28 12:49:34 Jorge Sprague Final: Ventral hernia without obstruction or gangrene Final: Ventral hernia without obstruction or gangrene 10/12/2016 [facility] Problem 2016-10-12 01:38:42 Jorge Sprague Chronic kidney disease stage 3 (disorder) Chronic kidney disease stage 3 (disorder) Resolved Problem 11/01/2019 [facility],Luke Chan,[facility], CHRISTI Hess,[facility] Problem Resolved 2019-11-01 22:39:11 [facility] Incisional hernia (disorder) I ncisional hernia (disorder) Resolved Problem 11/01/[address] [facility], [facility] [place],[facility], [facility] Problem Resolved 2019-11-01 22:39:11 [facility] Chronic obstructive lung disease (disorder) Chronic obstructive lung disease (disorder) Active Problem 11/01/2019 NO OXYGEN, JUST INHALERS Medical [facility], [facility] Problem Active 2019-11-01 22:39:11 [facility] Facial palsy (disorder) Faci al palsy (disorder) Active Problem 11/01/2019 [facility], [facility] Problem Active 2019-11-01 22:39:11 [facility] Gastroesophageal reflux disease (disorder) Gastroesophageal reflux disease (disorder) Active Problem 11/01/[address] [facility], [facility] Problem Active 2019-11-01 22:39:11 [facility] Hypertensive disorder, systemic arterial (disorder) Hypertensive disorder, systemic arterial (disorder) Active Problem 11/01/[address] [facility], [facility],[facility] Problem Active 2019-11-01 22:39:11 [facility] Hypothyroidism (disorder) Hypo thyroidism (disorder) Active Problem 11/01/[address] [facility], [facility] [place],[facility] Problem Active 2019-11-01 22:39:11 [facility] Obesity (disorder) Obes ity (disorder) Active Problem 11/01/2019 [facility], [facility],[facility] Problem Active 2019-11-01 22:39:11 [facility] Obstructive sleep apnea syndrome (disorder) Obstructive sleep apnea syndrome (disorder) Active Problem 11/01/2019 DOES NOT USE CPAPpt hasnt been using his CPAPINSTRUCTED PT TO BRING CPAP TO [facility], [place] [facility] Problem Active 2019-11-01 22:39:11 Syed Sprague Parkinson's disease (disorder) Parkinson's disease (disorder) Active Problem 11/01/2019 [facility], [place],[facility] [place] Problem Active 2019-11-01 22:39:11 Syed Sprague Depressive disorder (disorder) Depressive disorder (disorder) Active Problem 11/01/2019 [facility] Problem Active 2019-11-01 22:39:11 Syed Sprague NONTRAUMATIC ACUTE SUBDURAL HEMORRHAGE NONTRAUMATIC ACUTE SUBDURAL HEMORRHAGE Active [facility] Diagnosis Active 2017-08-21 21:57:00 Syed Sprague PERITONITIS, UNSPECIFIED DENISSE TONITIS, UNSPECIFIED Active [facility] Diagnosis Active 2018-09-18 22:36:00 Syed Sprague SEPSIS, UNSPECIFIED ORGANISM S EPSIS, UNSPECIFIED ORGANISM Active [facility] Diagnosis Active 2018-10-18 22:20:00 Syed Sprague PNEUMONIA, UNSPECIFIED ORGANISM PNEUMONIA, UNSPECIFIED ORGANISM Active [facility] Diagnosis Active 2018-10-18 22:20 :00 Syed Sprague SHORTNESS OF BREATH SHOR TNESS OF BREATH Active [facility] Diagnosis Active 2018-10-18 22:20:00 De morikrish Sprague 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 Active [facility] Diagnosis Active 2016-09-08 10:01:00 Syed Sprague VENTRAL HERNIA WITHOUT OBSTRUCTION OR GA VENTRAL HERNIA WITHOUT OBSTRUCTION OR GA Active [facility] Diagnosis Active 2016-10-23 14:55:00 Syed Sprague Infection following a procedure, organ a nd space surgical site, initial encounter Infection follow ing a procedure, organ and space surgical site, initial encounter 09/19/2018 03/26/2019 [facility] Problem 2018-09-19 08:06:34 2019-03-26 15:23:47 2019-03-26 15:23:47 Syed Sprague Unspecified open wound of abdominal wall , unspecified quadrant without penetration into peritoneal cavity, subsequent encounter Unspecified open wound of abdominal wall, unspecified quadrant without penetration into peritoneal cavity, subsequent encounter 09/10/2018 03/26/2019 [facility] Problem 2018-09-10 05:03:30 2019-03-26 11:15:58 2019-03 11:15:58 Syed Sprague Infection following a procedure, superfi cial incisional surgical site, initial encounter Infection follow ing a procedure, superficial incisional surgical site, initial encounter 08/01/2018 02/12/2019 [facility] Problem 2018-08-01 04:48:30 2019-02-12 15:03:11 2019-02-12 15:03:11 Syed Sprague Disruption of external operation (surgic al) wound, not elsewhere classified, initial encounter Disruption of ex ternal operation (surgical) wound, not elsewhere classified, initial encounter 07/26/2018 02/03/2019 [facility] Problem 2018-07-26 04:54:24 2019-02-03 11:15:41 2019-02-03 11:15:41 [facility] [place] Infection following a procedure, initial encounter Infection following a procedure, initial encounter 04/20/2018 10/28/2018 [facility] Problem 2018-04-20 03:13:00 2018-10 12:49:34 2018-10-28 12:49:34 [facility] [place] Unilateral primary osteoarthritis, left hip Unilateral primary osteoarthritis, left hip 03/26/2018 10/06/2018 JUD[facility]hawn Problem 2018-03-26 04:20:44 2018-10-06 12:36:42 2018-10-06 12:36:42 [facility] [place] Traumatic subdural hemorrhage with loss of consciousness of unspecified duration, initial encounter Traumatic subdur al hemorrhage with loss of consciousness of unspecified duration, initial encounter 09/04/2017 12/06/2017 [facility] Problem 2017-09-04 05:52:45 2017-12-06 18:18:52 2017-12-06 18:18:52 [facility] leela Allergies, Adverse Reactions, Alerts Allergy Name Allergy Type Status Severity Reaction(s) Onset Date Inacti ve Date Treating Clinician Comments Source No Known Medication Allergies No Known Medication Allergies [facility] Bactrim Bactrim Active [facility] Social History Social Habit Start Date Stop Date Quantity Comments Source Sex Assigned At [facility] intake 2018-02-06 00:00:00 2018-02-06 00:00:00 Current drinker of alcohol (finding) Rock Santana Social History 2016-10-07 08:16:11 2016-10-07 08:16:11 [facility] History of tobacco use 2016-08-13 00:00:00 Snuff User [facility] Smoking Status Start Date Stop Date Source Former smoker 2018-02-06 00:00:00 2018-02-06 00:00:00 Rock Santana Never smoker [facility] Medications Ordered Medication Name Filled Medication Name Start Date Stop Da te Current Medication? Ordering Clinician Indication Dosage Frequency Signature (SIG) Comments Components Source carbidopa-levodopa (SINEMET CR) 50-200 mg per CR tablet 2019-07-03 00:00:00 Yes Parkinson disease (HCC) TAKE 1 TABLET BY MOUTH T WICE A DAY Rock Santana tramadol hydrochloride 50 MG Oral Tablet 2019-06-05 15:37:00 Yes 100.4 F, X 10 day, # 12 tab, 0 Refill(s) Syed Sprague Acetaminophen 500 MG Oral Tablet 2019-06-05 15:33:00 Yes 1,000 mg = 2 tab, PO, Q6H, PRN Pain Score 4-6, X 14 day, # 24 tab, 0 Refill(s) Syed Sprague pantoprazole 40 mg oral enteric coated tablet 2019-06-05 15:33:0 0 Yes 40 mg = 1 tab, PO, Daily, # 60 tab, 0 Refill(s) Syed Sprague Tums 2019-06-05 04:27:00 No Notes: (Same As: Burt) Calcium Carbonate 500 mg = 200 mg elemental calcium Dose = mg calcium carbonate ( mg elemental calcium) Syed Sprague Acetaminophen 325 MG / Hydrocodone Bitartrate 10 MG Oral Tab let 2019-06-04 21:09:00 Yes TAKE 1 TAB LET BY MOUTH TWICE A DAY NEEDED FOR PAIN FOR BREAKTHROUGH PAIN. Syed Sprague gabapentin 600 MG Oral Tablet 2019-06-04 21:09:00 Yes TAKE 1 TABLET (600 MG TOTAL) BY MOUTH 4 (FOUR) TIMES A DAY. Syed Sprague valsartan 80 mg oral tablet 2019-06-04 21:09:00 Yes TAKE 1 TABLET BY MOUTH TWICE A DAY Syed Sprague Dilaudid 2019-06-04 20:07:00 No 0.2 mg, 0.1 mL, Route: IVP, Drug form: INJ, ONCE, Dosing Weight 118, kg, Priority: STAT, Start date: 06/04/19 15:07:00 CDT, Stop date: 06/04/19 15:07:00 CDT, 0 Syed Sprague Flomax 2019-06-04 13:30:00 No Notes: (Same As: Flomax) "Do Not Crush" Syed Sprague LR IV 1,000 mL 2019-06-04 12:46:00 No 1,000 mL, Rate: 100 ml/hr, Infuse over: 10 hr, Route: IV, Dosing Weight 118 kg, Total Volume: 1,000, Start date: 06/04/19 7:46:00 CDT, Duration: 30 day, Stop date: 07/04/19 7:45:00 [employer], 2.38, m2, 0 Syed Sprague Xarelto 2019-06-03 22:00:00 No Notes: (Same as: Xarelto) Administer with food Syed Sprague Calcium Chloride 0.0014 MEQ/ML / Potassi um Chloride 0.004 MEQ/ML / Sodium Chloride 0.103 MEQ/ML / Sodium Lactate 0.028 MEQ/ML Injectable Solution 2019-06-03 21:13:00 No 1,000 mL, 1,000 ml/hr, Infuse Over: 1 hr, Route: IV, 1,000, Drug form: INJ, ONCE, Priority: STAT, Dosing Weight 118 kg, Start date: 06/03/19 16:13:00 CDT, Stop date: 06/03/19 16:13:00 CDT, 0 Syed Sprague LR IV 1,000 mL 2019-06-03 21:12:00 No 1,000 mL, Rate: 125 ml/hr, Infuse over: 8 hr, Route: IV, Dosing Weight 118 kg, Total Volume: 1,000, Start date: 06/03/19 16:12:00 CDT, Duration: 30 day, Stop date: 07/03/19 16:11:00 [employer]INEER, 2.38, m2, 0 Syed Sprague Oxycodone Hydrochloride 1 MG/ML Oral Solution 2019-06-03 20:00:0 0 No Notes: (Same as: 'Roxicodone) De yanekrish Leungann Codeine 2019-06-03 15:59:00 No 15 mg, Route: PO, Drug form: TAB, Q4H, Dosing Weight 118, kg, PRN Pain Score 4-6, Start date: 06/03/19 10:59:00 CDT, Duration: 30 day, Stop date: 07/03/19 10:58:00 [employer] PROCESS 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 Thyroxine 2019-06-03 14:00:00 No Notes: Take 1 hour before or 2 hours after meal; Enteral feeds may interefere with the absorption of this medication. (Same as:Levothroid) Tammyoria l [place] Omeprazole 2019-06-03 14:00:00 No 20 mg, Route: PO, Drug form: DRC, Daily, Dosing Weight 118, kg, Start date: 06/03/19 9:00:00 CDT, Duration: 30 day, Stop date: 07/02/19 9:00:00 [facility]S PROCESS ENGINEER [facility] orial Celestine Sertraline 2019-06-03 14:00:00 No Notes: (S rosina as: Zoloft) [facility] Lactated Ringers IV 500 mL 2019-06-03 13:06:00 No 500 mL, Rate: 125 ml/hr, Infuse over: 4 hr, Route: IV, Dosing Weight 118 kg, Total Volume: 500, Start date: 06/03/19 8:06:00 CDT, Duration: 30 day, Stop date: 07/03/19 8:05:00 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 (Same as: Protonix) [facility] sugammadex 2019-06-03 03:00:00 No Notes: (S rosina as: Bridion) [facility] Acetaminophen 2019-06-02 23:00:00 No Notes: Max acetaminophen 4000 mg/day (4 gm/day). (Same as: Tylenol Extra Strength) [facility] Symbicort 160/4.5 inhalation aerosol with adapter 2019-06-02 22:00:00 No Notes: (Same as: Symbicort) WASTE: Aerosol - R eturn to Pharmacy [facility] Carbidopa 50 MG / Levodopa 200 MG Extended Release Tablet 2019-06-02 22:00:00 No Notes: "Do Not Crush" Take with milk or food. (Same As: Sinemet CR) [facility] valsartan 2019-06-02 22:00:00 No Notes: Melvi Holland [facility] ondansetron (ANES) 2019-06-02 21:27:00 No Route: IV, Drug form: INJ, ONCE, Stop date: 06/02/19 16:27:00 CDT leslirikrish Sprague sugammadex (ANES) 2019-06-02 21:27:00 No Route: IV, Drug form: SOLN, ONCE, Stop date: 06/02/19 16:27:00 [facility]T [facility] vasopressin (ANES) 2019-06-02 20:45:00 No Route: IV, Drug form: INJ, ONCE, Stop date: 06/02/19 15:45:00 CDT M leslirikrish Sprague ePHEDrine (ANES) 2019-06-02 20:45:00 No Route: IV, Drug form: INJ, ONCE, Stop date: 06/02/19 15:45:00 CDT leslirikrish Sprague rocuronium (ANES) 2019-06-02 20:40:00 No Route: IV, Drug form: INJ, ONCE, Stop date: 06/02/19 15:40:00 CDT leslirikrish Sprague ePHEDrine (ANES) 2019-06-02 20:20:00 No Route: IV, Drug form: INJ, ONCE, Stop date: 06/02/19 15:20:00 CDT leslirikrish Sprague vasopressin (ANES) 2019-06-02 20:10:00 No Route: IV, Drug form: INJ, ONCE, Stop date: 06/02/19 15:10:00 [facility] phenylephrine (ANES) 2019-06-02 20:05:00 No Route: IV, Drug form: INJ, ONCE, Stop date: 06/02/19 15:05:00 CDT [facility] ceFAZolin (ANES) 2019-06-02 20:05:00 No Route: IV, Drug form: INJ, ONCE, Stop date: 06/02/19 15:05:00 CDT leslirikrish Sprague Hydromorphone 2019-06-02 20:01:00 No Notes: Same as Dilaudid [facility] midazolam (ANES) 2019-06-02 20:00:00 No Route: IV, Drug form: SOLN, ONCE, Stop date: 06/02/19 15:00:00 CDT [facility] Celestine lidocaine ([facility] 2019-06-02 20:00:00 No Route: IV, Drug form: INJ, ONCE, Stop date: 06/02/19 15:00:00 CDT [facility] propofol ([facility] 2019-06-02 20:00:00 No Route: IV, Drug form: INJ, ONCE, Stop date: 06/02/19 15:00:00 CDT [facility] rocuronium ([facility] 2019-06-02 20:00:00 No Route: IV, Drug form: INJ, ONCE, Stop date: 06/02/19 15:00:00 CDT [facility] Celestine fentaNYL ([facility]) 2019-06-02 20:00:00 No Route: IV, Drug form: INJ, ONCE, Stop date: 06/02/19 15:00:00 [facility]T [facility] 2019-06-02 19:41:00 No Notes: (Same as: Apresoline) Push over 5 minutes [facility] Labetalol 2019-06-02 19:41:00 No 10 mg, 2 mL, Route: IVP, Drug form: INJ, Q5Min, Dosing Weight 118, kg, PRN Elevated BP, Start date: 06/02/19 14:41:00 CDT, Duration: 5 doses or times, Stop date: 06/03/19 0:00:00 CDT, 0 [facility] Oxycodone Hydrochloride 5 MG Oral Tablet 2019-06-02 19:41:00 No Notes: (Same as: Roxicodone) [facility] Hydromorphone 2019-06-02 19:41:00 No Notes: Same as Dilaudid [facility] Flumazenil 2019-06-02 19:41:00 No Notes: (S rosina as: Romazicon) [facility] Naloxone 2019-06-02 19:41:00 No Notes: Same as Narcan [facility] Ondansetron 2019-06-02 19:41:00 No Notes: (Same as: Zofran) MEDICATION WASTE Product Size: 4 mg Product Wasted: ___ mg [facility] Lactated Ringers Injection IV (ANES) 1000 mL 2019-06-02 18:53:00 No Route: IV, Total Volume: 1,000, Start date: 06/02/19 13:53:00 CDT, Stop date: 06/02/19 14:53:00 CDT Syed Sprague Mefoxin + sterile water 20 mL 2019-06-02 04:00:00 No Notes: (Same As: Mefoxin) MEDICATION WASTE Product Size: 2000 mg Product Wasted: ___ mg [facility] heparin 2019-06-02 04:00:00 No Notes: porci ne heparin [facility] scopolamine 2019-06-02 04:00:00 No Notes: Change patch every 72 hours (Same as: Transderm-Scop) Marc Ayala acetaminophen 2019-06-02 04:00:00 No Notes: Max acetaminophen 4000 mg/day (4 gm/day). (Same as: Tylenol Extra Strength) Syed Sprague multivitamin 2019-05-27 19:52:00 Yes Daily, 0 Refill(s) Syed Sprague Probiotic Formula 2019-05-27 19:52:00 Yes PO, Daily, 0 Refill(s) Syed Sprague omeprazole 20 mg oral delayed release capsule 2019-05-27 19:50:0 0 No 20 mg = 1 cap, PO, Daily, # 30 cap, 0 Refill(s) Syed Sprague valsartan 40 mg oral tablet 2019-05-27 19:49:00 No 40 mg = 1 tab, PO, BID, # 180 tab, 0 Refill(s) Syed Sprague gabapentin (NEURONTIN) 600 mg tablet 2019-03-25 00:00:00 Yes Neuropathy 600mg Q.25D TAKE 1 TABLET (600 MG TOTAL) BY MOUTH 4 (FOUR) TIMES A DAY. Rock Santana gabapentin (NEURONTIN) 600 mg tablet 2018-12-30 00:00: 00 2019-03-23 00:00:00 No Neuropathy 600mg Q.25D TAKE 1 TABLET ( 600 MG TOTAL) BY MOUTH 4 (FOUR) TIMES A DAY. Rock Santana Levofloxacin 750 MG Oral Tablet [Levaquin] 2018-10-10 20:46:00 No 750 mg = 1 tab, PO, Q24H, X 2 day, # 2 tab, 0 Refill(s) Syed Sprague vanco trough reminder prior to 9am dose 2018-10-10 14:30:00 No vanco trough reminder prior to 9am dose, reminder, Drug form: MISC, Route: MISC, ONCE, 10/10/18 8:30:00 MEMS PROCESS ENGINEER, Stop date: 10/10/18 8:30:00 MEMS PROCESS ENGINEER Syed Sprague vancomycin + Sodium Chloride 0.9% IV 250 mL 2018-10-09 03:00:00 No 2001 mg: infuse over 2.5 hours For adult patients only: Round to nearest 250 mg per Medical Staff approval MEDICATION WASTE Product Size: 1000 mg Product Wasted: ___ mg Syed Sprague RN-DO NOT give 16:30 vanc on 10/08 till trough drawn 2018-10-08 21:00:00 No RN-DO NO T give 16:30 vanc on 10/08 till trough drawn, Attn:RN, Drug form: MISC, Route: MISC, ONCE, 10/08/18 15:00:00 MEMS PROCESS ENGINEER, Stop date: 10/08/18 15:00:00 MEMS PROCESS ENGINEER [facility] Thyroxine 2018-10-08 12:30:00 No Notes: Take 1 hour before or 2 hours after meal; Enteral feeds may interefere with the absorption of this medication. (Same as:Levothroid) Tammytraci Leungann Xarelto 2018-10-07 23:00:00 No Notes: (Same as: Xarelto) Administer with food Syed Sprague vancomycin + Sodium Chloride 0.9% IV 250 mL 2018-10-07 22:30:00 No 2001 mg: infuse over 2.5 hours For adult patients only: Round to nearest 250 mg per Medical Staff approval MEDICATION WASTE Product Size: 1000 mg Product Wasted: ___ mg Syed Sprague gabapentin 2018-10-07 18:00:00 No Notes: (S rosina as: Neurontin) Syed Sprague albuterol 2018-10-07 17:00:00 No Notes: SEE RT DOCUMENTATION (Same as: Proventil) Syed Sprague Sertraline 2018-10-07 15:00:00 No Notes: (S rosina as: Zoloft) Syed Sprague pantoprazole 2018-10-07 15:00:00 No Notes: Tablet should not be chewed or crushed. (Same as: Protonix) Oleg Sprague Carbidopa 25 MG / Levodopa 100 MG Oral Tablet 2018-10-07 15:00:0 0 No Notes: Take with milk or food. (Same As: Sinemet) Syed Sprague Symbicort 160/4.5 inhalation aerosol with adapter 2018-10-07 15:00:00 No 2 puff, Route: INHAL ATION, Drug Form: AERO/A, Dosing Weight 104.545, kg, BID, Start date: 10/07/18 9:00:00 MEMS PROCESS ENGINEER, Duration: 30 day, Stop date: 11/05/18 17:00:00 CDT Syed Sprague Vancomycin 2018-10-07 15:00:00 No 1 gm, Route: IV, Q12H, Dosing Weight 104.545, kg, Start date: 10/07/18 9:00:00 MEMS PROCESS ENGINEER, Duration: 30 day, Stop date: 11/05/18 21:00:00 CDT, ABX Indication: Pneumonia [facility] Celestine valsartan 2018-10-07 15:00:00 No Notes: Vito e as Diovan [facility] Cel[place] torsemide 2018-10-07 15:00:00 No Notes: (Sa me As: Demadex) [facility] Pulmicort Respules 2018-10-07 13:31:00 No Notes: (Same As: Pulmicort) [facility] albuterol 2018-10-07 13:31:00 No Notes: SEE RT DOCUMENTATION (Same as: Proventil) [facility] 200 ACTUAT Albuterol 0.09 MG/ACTUAT Metered Dose Inhaler [Pr oAir HFA] 2018-10-07 13:22:00 No 180 microgram, 2 puff, Route: INHALER, Drug Form: AERO/A, Dosing Weight 104.545, kg, Q6H, PRN Wheezing, Start date: 10/07/18 7:22:00 MEMS PROCESS ENGINEER, Duration: 30 day, Stop date: 11/06/18 7:21:[address] [facility] Celestine tramadol hydrochloride 50 MG Oral Tablet 2018-10-07 13:22:00 No Notes: Not to exceed 400mg/day. (Same As: Ultram) [facility] 200 ACTUAT Albuterol 0.09 MG/ACTUAT Metered Dose Inhaler [Pr oAir HFA] 2018-10-07 12:48:00 No 2 puff, INHALER, Q6H, PRN for wheezing, # 8.5 gm, 0 Refill(s) Syed Sprague tramadol hydrochloride 50 MG Oral Tablet 2018-10-07 12:48:00 Yes 50 mg = 1 tab, PO, Q6H, PRN Pain Score 4-6, 0 Refill(s) Syed Sprague torsemide 20 mg oral tablet 2018-10-07 12:48:00 No 20 mg = 1 tab, PO, Daily, 0 Refill(s) Syed Sprague gabapentin 2018-10-07 12:48:00 Yes 600 mg, P O, QID, 0 Refill(s) Syed Sprague Sertraline 2018-10-07 12:48:00 Yes 1 00 mg, PO, Daily, 0 Refill(s) Syed Sprague Thyroxine 2018-10-07 12:48:00 Yes 12 5 microgram, Daily, 0 Refill(s) Syed Sprague rivaroxaban 20 MG Oral Tablet [Xarelto] 2018-10-07 12:48:00 No 20 mg = 1 tab, PO, QPM, # 30 tab, 3 Refill(s) Syed Sprague pantoprazole 40 mg oral enteric coated tablet 2018-10-07 12:48:0 0 Yes 40 mg = 1 tab, PO, Daily, 0 Refill(s) Syed Sprague Carbidopa 25 MG / Levodopa 100 MG Oral Tablet 2018-10-07 12:48:0 0 Yes 2 tab, PO, BID, 0 Refill(s) Jorge rial Celestine Symbicort 160/4.5 inhalation aerosol with adapter 2018-10-07 12:48:00 No 2 puff, INHALATION, BID, 0 Refill(s) Syed Sprague valsartan 80 mg oral tablet 2018-10-07 12:48:00 No 80 mg = 1 tab, PO, BID, 0 Refill(s) Syed Sprague Zosyn 2018-10-07 12:00:00 No Notes: (Same as: Zosyn) Dosing based on Piperacillin component MEDICATION WASTE Product Size: 3375 mg Product Wasted: ___ mg Syed Sprague vancomycin + Sodium Chloride 0.9% IV 250 mL 2018-10-07 09:36:00 No 2000 mg: infuse over 2.5 hours For adult patients only: Round to nearest 250 mg per Medical Staff approval MEDICATION WASTE Product Size: 1000 mg Product Wasted: ___ mg Syed Sprague Levofloxacin 2018-10-07 09:00:00 No Notes: (Same as:Levaquin) ySed Sprague Ondansetron 2018-10-07 07:31:00 No 4 mg, Route: IVP, Q8H, Dosing Weight 104.545, kg, PRN Nausea & Vomiting, Start date: 10/07/18 1:31:00 MEMS PROCESS ENGINEER, Duration: 30 day, Stop date: 11/06/18 1:30:00 CDT Syed Sprague Acetaminophen 2018-10-07 07:31:00 No Notes: Do not exceed 4 gm/day. (Same as: Tylenol) Syed Sprague Vancomycin 2018-10-07 06:25:00 No 1,000 mg, Route: IVPB, ONCE, Dosing Weight 104.545, kg, Priority: STAT, Start date: 10/07/18 0:25:00 MEMS PROCESS ENGINEER, Stop date: 10/07/18 0:25:00 MEMS PROCESS ENGINEER, ABX Indication: Pneumonia Syed Sprague Saline Flush 0.9% 2018-10-07 03:35:00 No Notes: (Same as: BD Posiflush) [facility] Celestine *RN-DO NOT give 21:00 vanc on 09/06 till trough drawn 2018-09-07 02:00:00 No *RN-DO NOT giv e 21:00 vanc on 09/06 till trough drawn, Attn:RN, Drug form: MISC, Route: MISC, ONCE, 09/06/18 20:00:00 MEMS PROCESS ENGINEER, Stop date: 09/06/18 20:00:00 MEMS PROCESS ENGINEER [facility] vancomycin 1.25 g/150 mL-NaCl 0.9% intravenous solution 2018-09-06 21:29:00 No 1.25 gm, IV, Q24H, X 6 we ek, # 42 bag, 0 Refill(s), given to patient Syed Sprague cefepime 1 g injection 2018-09-06 21:29:00 No 1 gm, IV, Q8H, X 6 week, # 126 bag, 0 Refill(s), given to patient Syed Sprague Xarelto 2018-09-05 23:00:00 No Notes: (Same as: Xarelto) Administer with food Syed Sprague Symbicort 160/4.5 inhalation aerosol with adapter 2018-09-05 15:00:00 No 2 puff, Route: INHAL ATION, Drug Form: AERO/A, Dosing Weight 105.966, kg, BID, Start date: 09/05/18 9:00:00 MEMS PROCESS ENGINEER, Duration: 30 day, Stop date: 10/04/18 17:00:00 MEMS PROCESS ENGINEER Syed Sprague Carbidopa 50 MG / Levodopa 200 MG Extended Release Tablet 2018-09-05 15:00:00 No Notes: "Do Not Crush" Take with milk or food. (Same As: Sinemet CR) Syed Sprague Thyroxine 2018-09-05 15:00:00 No Notes: Take 1 hour before or 2 hours after meal; Enteral feeds may interefere with the absorption of this medication. (Same as:Levothroid) Memoria jan Celestine pantoprazole 2018-09-05 15:00:00 No Notes: Tablet should not be chewed or crushed. (Same as: Protonix) Oleg emorikrish Sprague Veltassa 2018-09-05 15:00:00 No 8.4 gm, Route: PO, Drug form: PDR/REC, Daily, Dosing Weight 105.966, kg, Start date: 09/05/18 9:00:00 MEMS PROCESS ENGINEER, Duration: 30 day, Stop date: 10/04/18 9:00:[address] [facility] Celestine torsemide 2018-09-05 15:00:00 No Notes: (Sa me As: Demadex) [facility] valsartan 2018-09-05 15:00:00 No Notes: Vito esquivel Diovan [facility] cefepime 2018-09-05 08:00:00 No Notes: (Same As: Maxipime) MEDICATION WASTE Product Size: 1000 mg Product Wasted: ___ mg [facility] gabapentin 600 MG Oral Tablet 2018-09-05 06:00:00 No Notes: (Same as: Neurontin) [facility] ATTN RN please bring pt home med to pharmacy to be labeled 2018-09-05 06:00:00 No ATTN RN please bring pt home med to pharmacy to be labeled, ATTN RN, Drug form: MISC, Route: MISC, RADHAFT, 09/05/18 0:00:00 MEMS PROCESS ENGINEER, Duration: 30 day, Stop date: 10/04/18 16:00:00 MEMS PROCESS ENGINEER Syed Sprague Sertraline 2018-09-05 03:00:00 No Notes: (S rosina as: Zoloft) [facility] Pulmicort Respules 2018-09-05 02:00:00 No Notes: (Same As: Pulmicort) [facility] albuterol 2018-09-05 02:00:00 No Notes: SEE RT DOCUMENTATION (Same as: Proventil) [facility] Vancomycin 2018-09-05 02:00:00 No 1.5 gm, Route: IVPB, Drug form: INJ, [id number], Dosing Weight 105.966, kg, Start date: 09/04/18 20:00:00 MEMS PROCESS ENGINEER, Duration: 7 day, Stop date: 09/11/18 8:00:00 MEMS PROCESS ENGINEER, ABX Indication: Skin/Soft Tissue Infection [facility] vancomycin + Sodium Chloride 0.9% IV 250 mL 2018-09-05 02:00:00 No 2001 mg: infuse over 2.5 hours For adult patients only: Round to nearest 250 mg per Medical Staff approval MEDICATION WASTE Product Size: 1000 mg Product Wasted: ___ mg Syed Sprague NS 1,000 mL 2018-09-05 01:15:00 No 1,000 mL, Rate: 75 ml/hr, Infuse over: 13.3 hr, Route: IV, Dosing Weight 105.966 kg, Total Volume: 1,000, Start date: 09/04/18 19:15:00 MEMS PROCESS ENGINEER, Duration: 30 day, Stop date: 10/04/18 19:14:00 MEMS PROCESS ENGINEER, 2.22, m2 [facility] albuterol 2018-09-05 00:16:00 No Notes: SEE RT DOCUMENTATION (Same as: Proventil) [facility] Vancomycin 2018-09-05 00:00:00 No 1,000 mg, Route: IVPB, Drug form: INJ, [id number], Dosing Weight 105.966, kg, Start date: 09/04/18 18:00:00 MEMS PROCESS ENGINEER, Duration: 10 day, Stop date: 09/14/18 6:00:00 MEMS PROCESS ENGINEER, ABX Indication: Intra- abdominal Infection [facility] cefepime 2018-09-05 00:00:00 No Notes: (Same As: Maxipime) MEDICATION WASTE Product Size: 1000 mg Product Wasted: ___ mg [facility] 200 ACTUAT Albuterol 0.09 MG/ACTUAT Metered Dose Inhaler [Pr oAir HFA] 2018-09-04 23:34:00 No 180 microgram, 2 puff, Route: INHALER, Drug Form: AERO/A, Dosing Weight 105.966, kg, Q6H, PRN, Start date: 09/04/18 17:34:00 MEMS PROCESS ENGINEER, Duration: 30 day, Stop date: 10/04/18 17:33:00 MEMS PROCESS ENGINEER, asthma [facility] tramadol hydrochloride 50 MG Oral Tablet 2018-09-04 23:34:00 No Notes: Not to exceed 400mg/day. (Same As: Ultram) [facility] Omnipaque 300 injectable solution 2018-09-04 22:00:00 No Notes: (Same as:Omnipaque 300). WASTE: F/P - Black; E - [employer] Trash Bin [facility] Triamcinolone Acetonide 0.001 MG/MG Oral Paste 2018-09-04 20:31: 00 No 1 appl, PO, TID, # 5 gm, 0 Refill(s) [facility] Acetaminophen 325 MG / Hydrocodone Bitartrate 10 MG Or al Tablet [[place] 10/325] 2018-09-04 20:31:00 No 1 ta b, PO, Q6H, PRN for pain, # 24 tab, 0 Refill(s) [facility] Dextrose 50% Syringe 2018-09-03 20:32:00 No 12.5 gm, 25 mL, Route: IVP, Drug Form: INJ, Dosing Weight 102.273, kg, PRN, PRN Blood Glucose Results, Start date: 09/03/18 14:32:00 MEMS PROCESS ENGINEER, Duration: 30 day, Stop date: 10/03/18 14:31:00 MEMS PROCESS ENGINEER [facility] Glucagon 2018-09-03 20:32:00 No 1 mg, Route: IM, Drug form: PDR/INJ, PRN, Dosing Weight 102.273, kg, PRN Blood Glucose Results, Start date: 09/03/18 14:32:00 MEMS PROCESS ENGINEER, Duration: 30 day, Stop date: 10/03/18 14:31:00 MEMS PROCESS ENGINEER Syed Sprague POLYETHYLENE GLYCOL 3350 2018-09-03 20:32:00 No Notes: Dissolve in 8 oz of water or juice. (Same as: Miralax) [facility] Bisacodyl 2018-09-03 20:32:00 No Notes: (Same As: Dulcolax, [place]-Lax) [facility] Ondansetron 2018-09-03 20:32:00 No Notes: (Same as: Zofran) MEDICATION WASTE Product Size: 4 mg Product Wasted: ___ mg [facility] Diphenhydramine 2018-09-03 20:32:00 No 25 mg, 1 tab, Route: PO, Drug form: TAB, Q6H, Dosing Weight 102.273, kg, PRN as needed for allergy symptoms, Start date: 09/03/18 14:32:00 MEMS PROCESS ENGINEER, Duration: 30 day, Stop date: 10/03/18 14:31:[address] [facility] Melatonin 2018-09-03 20:32:00 No Notes: (Sa me as: Melatonin) [facility] Trazodone 2018-09-03 20:32:00 No Notes: (Sa me As: Desyrel) [facility] Acetaminophen 2018-09-03 20:32:00 No Notes: Do not exceed 4 gm/day. (Same as: Tylenol) [facility] Seroquel 2018-09-03 20:32:00 No Notes: (Vito e as: SEROquel) [facility] Hydralazine 2018-09-03 20:32:00 No Notes: (Same as: Apresoline) Push over 5 minutes [facility] Nicotine 2018-09-03 20:32:00 No Notes: (Same as: Habitrol) "Remove old patch before application of new patch" WASTE: F/P - P Waste Black; E - P Waste Black [facility] magnesium citrate 58.2 MG/ML Oral Solution 2018-09-03 20:32:00 No Notes: (Same as: Citrate of Magnesia) Concentration: 1.745 gm / 30 mL [facility] Acetaminophen 325 MG / Hydrocodone Bitartrate 5 MG Oral Tabl et [[place] 5/325] 2018-09-03 20:32:00 No Notes: (Same as: [place] 325/5) Do not exceed 4gm/day of acetaminophen. [facility] Jess nn Morphine 2018-09-03 20:32:00 No 2 mg, 1 mL, Route: IVP, Drug form: SOLN, Q4H, Dosing Weight 102.273, kg, PRN Pain Score 7-10, Start date: 09/03/18 14:32:00 MEMS PROCESS ENGINEER, Duration: 30 day, Stop date: 10/03/18 14:31:00 [facility] Dextrose 50% Syringe 2018-09-03 20:28:00 No 25 mL, Route: IVP, Dosing Weight 102.273, kg, PRN, PRN Blood Glucose Results, Start date: 09/03/18 14:28:00 MEMS PROCESS ENGINEER, Duration: 30 day, Stop date: 10/03/18 14:27:00 [facility] Glucagon 2018-09-03 20:28:00 No 1 mg, Route: IM, PRN, Dosing Weight 102.273, kg, PRN Blood Glucose Results, Start date: 09/03/18 14:28:00 MEMS PROCESS ENGINEER, Duration: 30 day, Stop date: 10/03/18 14:27:00 [facility] POLYETHYLENE GLYCOL 3350 2018-09-03 20:28:00 No 17 gm, Route: PO, Daily, Dosing Weight 102.273, kg, PRN Constipation, Start date: 09/03/18 14:28:00 MEMS PROCESS ENGINEER, Duration: 30 day, Stop date: 10/03/18 14:27:00 [facility] Bisacodyl 2018-09-03 20:28:00 No 10 mg, Route: HI, Daily, Dosing Weight 102.273, kg, PRN Constipation, Start date: 09/03/18 14:28:00 MEMS PROCESS ENGINEER, Duration: 30 day, Stop date: 10/03/18 14:27:00 [facility] Ondansetron 2018-09-03 20:28:00 No 4 mg, Route: IVP, Q6H, Dosing Weight 102.273, kg, PRN Nausea & Vomiting, Start date: 09/03/18 14:28:00 MEMS PROCESS ENGINEER, Duration: 30 day, Stop date: 10/03/18 14:27:00 [facility] Diphenhydramine 2018-09-03 20:28:00 No 25 mg, Route: PO, Q6H, Dosing Weight 102.273, kg, PRN as needed for allergy symptoms, Start date: 09/03/18 14:28:00 MEMS PROCESS ENGINEER, Duration: 30 day, Stop date: 10/03/18 14:27:00 [facility] Melatonin 2018-09-03 20:28:00 No 3 mg, Route: PO, Bedtime, Dosing Weight 102.273, kg, PRN Insomnia, Start date: 09/03/18 14:28:00 MEMS PROCESS ENGINEER, Duration: 30 day, Stop date: 10/03/18 14:27:00 [facility] Trazodone 2018-09-03 20:28:00 No 50 mg, Route: PO, Bedtime, Dosing Weight 102.273, kg, PRN Insomnia, Start date: 09/03/18 14:28:00 MEMS PROCESS ENGINEER, Duration: 30 day, Stop date: 10/03/18 14:27:00 [facility] Acetaminophen 2018-09-03 20:28:00 No 100.4 F, Start date: 09/03/18 14:28:00 MEMS PROCESS ENGINEER, Duration: 30 day, Stop date: 10/03/18 14:27:00 [facility] Seroquel 2018-09-03 20:28:00 No 25 mg, Route: PO, BID, Dosing Weight 102.273, kg, PRN Agitation, Start date: 09/03/18 14:28:00 MEMS PROCESS ENGINEER, Duration: 30 day, Stop date: 10/03/18 14:27:00 MEMS PROCESS ENGINEER [facility] Hydralazine 2018-09-03 20:28:00 No 10 mg, Route: IVP, Q4H, Dosing Weight 102.273, kg, PRN Hypertension, Priority: Routine, Start date: 09/03/18 14:28:00 MEMS PROCESS ENGINEER, Duration: 30 day, Stop date: 10/03/18 14:27:00 [facility] Nicotine 2018-09-03 20:28:00 No 21 mg, Route: TOP, Drug form: ERFILM, Daily, Dosing Weight 102.273, kg, PRN as needed for smoking cessation, Start date: 09/03/18 14:28:00 MEMS PROCESS ENGINEER, Duration: 30 day, Stop date: 10/03/18 14:27:00 [facility] magnesium citrate 58.2 MG/ML Oral Solution 2018-09-03 20:28:00 No 300 ml, Route: PO, Dosing Weight 102.273, kg, ONCE, PRN Constipation, Start date: 09/03/18 14:28:00 MEMS PROCESS ENGINEER [facility] Acetaminophen 325 MG / Hydrocodone Bitartrate 5 MG Oral Tabl et [[place] 5/325] 2018-09-03 20:28:00 No 1 tab, Route: PO, Drug Form: TAB, Dosing Weight 102.273, kg, Q6H, PRN Pain Score 1-3, Start date: 09/03/18 14:28:00 [employer], Duration: 30 day, Stop date: 10/03/18 14:27:00 [employer] [facility] Morphine 2018-09-03 20:28:00 No 2 mg, Route: IVP, Q4H, Dosing Weight 102.273, kg, PRN Pain Score 7-10, Start date: 09/03/18 14:28:00 [employer], Duration: 30 day, Stop date: 10/03/18 14:27:00 [facility] pantoprazole 2018-07-27 15:00:00 No Notes: Tablet should not be chewed or crushed. (Same as: Protonix) [facility] Sertraline 2018-07-27 03:00:00 No Notes: (S rosina as: Zoloft) [facility] Acetaminophen 500 MG Oral Tablet 2018-07-26 23:41:00 No 1,000 mg = 2 tab, PO, Q6H, PRN Pain Score 4-6, 0 Refill(s) [facility] tramadol hydrochloride 50 MG Oral Tablet 2018-07-26 23:41:00 No 50 mg = 1 tab, PO, Q6H, PRN Pain Score 7-10, # 12 tab, 0 Refill(s) [facility] Symbicort 160/4.5 inhalation aerosol with adapter 2018-07-26 23:00:00 No Notes: (Same as: Symbicort) WASTE: Aerosol - R eturn to Pharmacy [facility] valsartan 2018-07-26 23:00:00 No Notes: Melvi Holland [facility] torsemide 2018-07-26 19:00:00 No Notes: (Sa me As: Demadex) [facility] gabapentin 600 MG Oral Tablet 2018-07-26 19:00:00 No Notes: (Same as: Neurontin) [facility] Thyroxine 2018-07-26 18:00:00 No Notes: Take 1 hour before or 2 hours after meal; Enteral feeds may interefere with the absorption of this medication. (Same as:Levothroid) Memoria l [facility] Carbidopa 50 MG / Levodopa 200 MG Extended Release Tablet 2018-07-26 18:00:00 No Notes: "Do Not Crush" Take with milk or food. (Same As: Sinemet CR) Syed Sprague 200 ACTUAT Albuterol 0.09 MG/ACTUAT Metered Dose Inhaler [Pr oAir HFA] 2018-07-26 17:37:00 No Notes: Albuterol 90 microgram/inh 8gm HFA WASTE: Aerosol - Return to Pharmacy Same as: Brenda Irving [facility] Tramadol 2018-07-26 13:41:00 No Notes: Not to exceed 400mg/day. (Same As: Ultram) [facility] Acetaminophen 2018-07-26 13:41:00 No 1,000 mg, 2 tab, Route: PO, Drug form: TAB, Q6H, Dosing Weight 102.273, kg, PRN Pain Score 4-6, Start date: 07/26/18 7:41:00 [employer]INEER, Duration: 30 day, Stop date: 08/25/18 7:40:[address] [employer] [address] [facility] Dextrose 50% Syringe 2018-07-25 21:20:00 No 25 gm, 50 mL, Route: IVP, Drug Form: INJ, Dosing Weight 102.273, kg, PRN, PRN Blood Glucose Results, Start date: 07/25/18 15:20:00 [employer] PROC[employer] ENGINEER, Duration: 30 day, Stop date: 08/24/18 15:19:00 [employer]S PROCESS ENGINEER [facility] Glucagon 2018-07-25 21:20:00 No 1 mg, Route: IM, Drug form: PDR/INJ, PRN, Dosing Weight 102.273, kg, PRN Blood Glucose Results, Start date: 07/25/18 15:20:00 [employer]S PROCESS ENGINEER, Duration: 30 day, Stop date: 08/24/18 15:19:00 [employer]S PROC[employer] ENGINEER Syed Sprague Labetalol 2018-07-25 20:27:00 No Notes: (Same as: Normodyne, Trandate) Push over 2 minutes Give bolus over 2-3 minutes. Syed Sprague Hydralazine 2018-07-25 20:27:00 No Notes: (Same as: Apresoline) Push over [address] [facility] Oxycodone 2018-07-25 20:27:00 No Notes: (Sa me as: Roxicodone) [facility] Flumazenil 2018-07-25 20:27:00 No Notes: (S rosina as: Romazicon) [facility] Hydromorphone 2018-07-25 20:27:00 No Notes: Same as Dilaudid [facility] Naloxone 2018-07-25 20:27:00 No Notes: Same as Narcan [facility] Ondansetron 2018-07-25 20:27:00 No Notes: (Same as: Zofran) MEDICATION WASTE Product Size: 4 mg Product Wasted: ___ mg [facility] phenylephrine (ADRIAN) 2018-07-25 20:19:00 No Route: IV, Drug form: INJ, ONCE, Stop date: 07/25/18 14:19:00 [facility] Syed Sprague ondansetron (MIRYAM) 2018-07-25 20:19:00 No Route: IV, Drug form: INJ, ONCE, Stop date: 07/25/18 14:19:00 MEMS PROCESS ENGINEER Oleg ballesterosirvinkrish Leungann fentaNYL (MIRYAM) 2018-07-25 20:19:00 No Route: IV, Drug form: INJ, ONCE, Stop date: 07/25/18 14:19:00 [employer]S PROC[employer] ENGINEER Oleg ballesterosirvinkrish Leungann neostigmine (MIRYAM) 2018-07-25 20:19:00 No Route: IV, Drug form: INJ, ONCE, Stop date: 07/25/18 14:19:00 [employer]S PROCESS ENGINEER Oleg ballesterosirvinkrish Leungann glycopyrrolate (ADRIAN) 2018-07-25 20:19:00 No Route: IV, Drug form: INJ, ONCE, Stop date: 07/25/18 14:19:00 [employer]S PROCESS ENGINEER Syed Leungann ePHEDrine (MIRYAM) 2018-07-25 20:19:00 No Route: IV, Drug form: INJ, ONCE, Stop date: 07/25/18 14:19:00 MEMS PROCESS ENGINEER [facility] lidocaine ([facility] 2018-07-25 20:19:00 No Route: IV, Drug form: INJ, ONCE, Stop date: 07/25/18 14:19:00 MEMS PROCESS ENGINEER Oleg [facility] midazolam (ANES) 2018-07-25 20:19:00 No Route: IV, Drug form: SOLN, ONCE, Stop date: 07/25/18 14:19:00 MEMS PROCESS ENGINEER M [facility] rocuronium ([facility]) 2018-07-25 20:19:00 No Route: IV, Drug form: INJ, ONCE, Stop date: 07/25/18 14:19:00 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 propofol ([facility] 2018-07-25 20:19:00 No Route: IV, Drug form: INJ, ONCE, Stop date: 07/25/18 14:19:00 MEMS PROCESS ENGINEER Oleg [facility] ceFAZolin ([facility]) 2018-07-25 20:18:00 No Route: IV, Drug form: INJ, ONCE, Stop date: 07/25/18 14:18:00 MEMS PROCESS ENGINEER [facility] Lactated Ringers Injection IV ([facility]) 1000 mL 2018-07-25 19:08:00 No Route: IV, Total Volume: 1,000, Start date: 07/25/18 13:08:00 MEMS PROCESS ENGINEER, Stop date: 07/25/18 14:08:00 MEMS PROCESS ENGINEER [facility] 2018-07-25 11:00:00 No Notes: Infuse over 15 minutes Do not exceed 4gm/day of acetaminophen MEDICATION WASTE Product Size: 1000 mg Product Wasted: ___ mg [facility] scopolamine 2018-07-25 11:00:00 No Notes: Change patch every 72 hours (Same as: Transderm-Scop) [facility] [place] heparin 2018-07-25 11:00:00 No Notes: porci ne heparin [facility] ceFAZolin + sterile water 20 mL 2018-07-25 11:00:00 No Notes: (Same As: Fanny Miranda) MEDICATION WASTE Product Size: 1000 mg Product Wasted: ___ mg [facility] remove patch 2018-07-25 11:00:00 No Notes: Remove old patch before application of new patch. Syed guillen patiromer 8400 MG Powder for Oral Suspension [Veltassa] 2018-07-24 15:38:00 No 8.4 gm, PO, Daily, 0 Refill(s) Syed Sprague ampicillin 500 mg oral capsule 2018-07-24 15:36:00 No 500 mg = 1 cap, PO, QID, 0 Refill(s) Syed Leungalex guillen gabapentin (NEURONTIN) 600 mg tablet 2018-05-30 00:00:00 Yes Neuropathy TAKE 1 TABLET BY MOUTH FOUR TIMES A DAY Rock Santana carbidopa-levodopa (SINEMET CR) 50-200 mg per CR tablet 2018-04-22 00:00:00 2019-07-02 00:00:00 No Parkinson disease (HCC) 1{tbl} Q.5 D Take 1 tablet by mouth 2 (two) times a day. Rock rosales clindamycin 300 mg oral capsule 2018-04-10 20:38:00 No 300 mg = 1 cap, PO, Q6H, X 10 day, # 40 cap, 0 Refill(s) Syed Sprague tramadol hydrochloride 50 MG Oral Tablet 2018-04-10 18:42:00 No 50 mg = 1 tab, PO, Q6H, # 10 tab, 0 Refill(s) Syed Cel[facility] pantoprazole 40 mg oral enteric coated tablet 2018-04-10 18:34:0 0 No 40 mg = 1 tab, PO, Daily, # 30 tab, 3 Refill(s) Syed Sprague Zoloft 2018-04-09 21:53:00 No Notes: (Same as: Zoloft) Syed Sprague Acetaminophen 2018-04-09 17:00:00 No Notes: Max acetaminophen 4000 mg/day (4 gm/day). (Same as: Tylenol Extra Strength) Syed Sprague Lovenox 2018-04-09 12:00:00 No Notes: (Same as: Lovenox) Syed Sprague neostigmine (ANES) 2018-04-08 22:45:00 No Route: IV, Drug form: INJ, ONCE, Stop date: 04/08/18 17:45:00 CDT Syed Sprague glycopyrrolate (ANES) 2018-04-08 22:45:00 No Route: IV, Drug form: INJ, ONCE, Stop date: 04/08/18 17:45:00 CDT [facility] ketOROLAC ([facility]) 2018-04-08 22:45:00 No IV, ONCE [facility] ondansetron ([facility]) 2018-04-08 22:43:00 No Route: IV, Drug form: INJ, ONCE, Stop date: 04/08/18 17:43:00 CDT [facility] famotidine ([facility]) 2018-04-08 21:48:00 No Route: IV, Drug form: INJ, ONCE, Stop date: 04/08/18 16:48:00 CDT [facility] dexamethasone ([facility]) 2018-04-08 21:48:00 No Route: IV, Drug form: INJ, ONCE, Stop date: 04/08/18 16:48:00 CDT [facility] phenylephrine ([facility]) 2018-04-08 21:23:00 No Route: IV, Drug form: INJ, ONCE, Stop date: 04/08/18 16:23:00 CDT [facility] fentaNYL ([facility]) 2018-04-08 21:23:00 No Route: IV, Drug form: INJ, ONCE, Stop date: 04/08/18 16:23:00 CDT [facility] rocuronium ([facility]) 2018-04-08 21:23:00 No Route: IV, Drug form: INJ, ONCE, Stop date: 04/08/18 16:23:00 CDT [facility] propofol ([facility]) 2018-04-08 21:23:00 No Route: IV, Drug form: INJ, ONCE, Stop date: 04/08/18 16:23:00 CDT [facility] lidocaine ([facility]) 2018-04-08 21:23:00 No Route: IV, Drug form: INJ, ONCE, Stop date: 04/08/18 16:23:00 CDT [facility] midazolam ([facility]) 2018-04-08 21:18:00 No Route: IV, Drug form: SOLN, ONCE, Stop date: 04/08/18 16:18:00 CDT [facility] Albuterol 0.83 MG/ML Inhalant Solution 2018-04-08 21:04:00 No 2.49 mg, Route: NEB, PRN, Dosing Weight 99.602, kg, PRN Respiratory Pathway, Start date: 04/08/18 16:04:00 CDT, Duration: 30 day, Stop date: 05/08/18 16:03:00 CDT [facility] Metoprolol 2018-04-08 21:04:00 No 1 mg, Route: IVP, Q5Min, Dosing Weight 99.602, kg, PRN Other -See Comment, Start date: 04/08/18 16:04:00 CDT, Duration: 5 doses or times, Stop date: Limited # of times [facility] Oxycodone 2018-04-08 21:04:00 No 5 mg, Route: PO, Drug form: TAB, Q4H, Dosing Weight 99.602, kg, PRN Pain Score 4-6, Start date: 04/08/18 16:04:00 CDT, Duration: 30 day, Stop date: 05/08/18 16:03:00 CDT [facility] Hydromorphone 2018-04-08 21:04:00 No 0.5 mg, Route: IVP, Q5Min, Dosing Weight 99.602, kg, PRN, Start date: 04/08/18 16:04:00 CDT, Duration: 4 doses or times, Stop date: Limited # of times, Pain Score 4-10 [facility] esmolol 2018-04-08 21:04:00 No 10 mg, Route: IVP, Q5Min, Dosing Weight 99.602, kg, PRN Other -See Comment, Start date: 04/08/18 16:04:00 CDT, Duration: 5 doses or times, Stop date: Limited # of times [facility] Promethazine 2018-04-08 21:04:00 No 6.25 mg, Route: IVPB, ONCE, Dosing Weight 99.602, kg, PRN Nausea & Vomiting, Start date: 04/08/18 16:04:00 CDT [facility] Flumazenil 2018-04-08 21:04:00 No 0.2 mg, Route: IVP, PRN, Dosing Weight 99.602, kg, PRN Benzodiazepine Reversal, Initial dose, Start date: 04/08/18 16:04:00 CDT, Duration: 30 day, Stop date: 05/08/18 16:03:00 CDT [facility] Naloxone 2018-04-08 21:04:00 No 0.4 mg, Route: IVP, Q2MIN, Dosing Weight 99.602, kg, PRN Narcotic Reversal, Start date: 04/08/18 16:04:00 CDT, Duration: 8 doses or times, Stop date: Limited # of times [facility] Ondansetron 2018-04-08 21:04:00 No 4 mg, Route: IVP, ONCE, Dosing Weight 99.602, kg, PRN Nausea & Vomiting, Start date: 04/08/18 16:04:00 CDT [facility] Sodium Chloride 0.9% IV (ANES) 100 mL + vancomycin (ANES) 50 0 mg 2018-04-08 20:37:00 No Route: IV, Drug form: INJ, Start date: 04/08/18 15:37:00 CDT, Stop date: 04/08/18 16:37:00 CDT [facility] Sodium Chloride 0.9% IV (ANES) 100 mL + dexmedetomidine (ANE S) 200 microgram 2018-04-08 20:32:00 No Route: IV, Drug form: INJ, Start date: 04/08/18 15:32:00 CDT, Stop date: 04/08/18 16:32:00 CDT [facility] Sodium Chloride 0.9% IV (ANES) 100 mL + ketAMINE (ANES) 10 m g 2018-04-08 20:32:00 No Route: IV, Drug form: INJ, Start date: 04/08/18 15:32:00 CDT, Stop date: 04/08/18 16:32:00 CDT [facility] Lactated Ringers Injection IV (ANES) 1000 mL 2018-04-08 20:21:00 No Route: IV, Total Volume: 1,000, Start date: 04/08/18 15:21:00 CDT, Stop date: 04/08/18 16:21:00 CDT [facility] Oxycodone Hydrochloride 5 MG Oral Tablet 2018-04-07 14:55:00 No Notes: (Same as: Roxicodone) [facility] tramadol hydrochloride 50 MG Oral Tablet 2018-04-07 13:12:00 No 100 mg, Route: PO, Drug form: TAB, Q6H, Dosing Weight 99.602, kg, PRN Pain Score 4- 6, Start date: 04/07/18 8:12:00 CDT, Duration: 30 day, Stop date: 05/07/18 8:11:00 CDT [facility] Vancomycin 2018-04-06 16:00:00 No Notes: TIME CRITICAL MEDICATION (Same As: Vancocin) For adult patients only: Round to nearest 250 mg per Medical Staff approval [facility] Protonix 2018-04-06 14:00:00 No 20 mg, Route: PO, Daily, Dosing Weight 99.602, kg, Start date: 04/06/18 9:00:00 CDT, Duration: 30 day, Stop date: 05/05/18 9:00:00 CDT [facility] gabapentin 600 MG Oral Tablet 2018-04-06 02:00:00 No Notes: (Same as: Neurontin) [facility] Sertraline 2018-04-06 02:00:00 No Notes: (S rosina as: Zoloft) [facility] Symbicort 160/4.5 inhalation aerosol with adapter 2018-04-06 01:00:00 No Notes: (Same as: Symbicort) WASTE: Aerosol - R eturn to Pharmacy [facility] valsartan 2018-04-05 22:00:00 No Notes: Melvi Holland [facility] Versed 2018-04-05 19:54:00 No 1 mg, Route: IV, ONCE, Dosing Weight 99.602, kg, Start date: 04/05/18 14:54:00 CDT, Stop date: 04/05/18 14:54:00 CDT [facility] Fentanyl 2018-04-05 19:54:00 No 50 microgram, Route: IV, ONCE, Dosing Weight 99.602, kg, Start date: 04/05/18 14:54:00 CDT, Stop date: 04/05/18 14:54:00 CDT [facility] gabapentin 600 MG Oral Tablet 2018-04-05 18:00:00 No Notes: (Same as: Neurontin) [facility] 200 ACTUAT Albuterol 0.09 MG/ACTUAT Metered Dose Inhaler [Pr oAir HFA] 2018-04-05 18:00:00 No 2 puff, Route: INHALATION, Dosing Weight 99.602, kg, QID, Start date: 04/05/18 13:00:00 CDT, Duration: 30 day, Stop date: 05/05/18 9:00:00 CDT Syed Sprague carbidopa-levodopa 50 mg-200 mg oral tablet, extended releas e 2018-04-05 16:00:00 No Notes: "Do Not Crush" Take with milk or food. (Same As: Sinemet CR) Syed Cel[facility] Acetaminophen 2018-04-05 15:30:00 No Notes: Infuse over 15 minutes Do not exceed 4gm/day of acetaminophen MEDICATION WASTE Product Size: 1000 mg Product Wasted: _0__ mg Tammysherry rutherford [facility] Protonix 2018-04-05 15:30:00 No Notes: Tablet should not be chewed or crushed. (Same as: Protonix) Syed Sprague Blistex topical ointment 2018-04-05 15:06:00 No Notes: Same as: Blistex [facility] Blistex Lip [place] 2018-04-05 15:00:00 No Route: TOP, Dosing Weight 99.602, kg, PRN, PRN Dry Lips, Start date: 04/05/18 10:00:00 CDT, Duration: 30 day, Stop date: 05/05/18 9:59:00 CDT [facility] torsemide 2018-04-05 15:00:00 No Notes: (Sa me As: Demadex) Syed Sprague valsartan 80 mg oral tablet 2018-04-05 15:00:00 Yes 80 mg = 1 tab, PO, BID, # 30 tab, 0 Refill(s) Syed Leungann torsemide 20 mg oral tablet 2018-04-05 14:44:00 Yes 20 mg = 1 tab, PO, Daily, # 30 tab, 1 Refill(s) Tammyoria l [facility] levothyroxine 125 mcg (0.125 mg) oral tablet 2018-04-05 14:44:00 No 125 microgram = 1 tab, PO, QAM, # 30 tab, 0 Refill(s) Syed Sprague Carbidopa 50 MG / Levodopa 200 MG Extended Release Tablet 2018-04-05 14:44:00 Yes 1 tab, PO, BID, # 60 tab, 0 Refi ll(s) Syed Sprague testosterone cypionate 200 mg/mL intramuscular solution 2018-04-05 14:44:00 Yes 200 mg = 1 ml, IM, 0 Refill(s) Syed Sprague sertraline 100 mg oral tablet 2018-04-05 14:44:00 No 100 mg = 1 tab, PO, Bedtime, # 30 tab, 0 Refill(s) Floyd Sprague Thyroxine 2018-04-05 14:30:00 No Notes: Take 1 hour before or 2 hours after meal; Enteral feeds may interefere with the absorption of this medication. (Same as:Levothroid) Eliseo Sprague Carbidopa 25 MG / Levodopa 100 MG Oral Tablet 2018-04-05 14:00:0 0 No 1 tab, Route: PO, Drug Form: TAB, Dosing Weight 99.602, kg, BID, Start date: 04/05/18 9:00:00 CDT, Duration: 30 day, Stop date: 05/04/18 17:00:00 CDT Syed Sprague 200 ACTUAT Albuterol 0.09 MG/ACTUAT Metered Dose Inhaler [Pr oAir HFA] 2018-04-05 03:40:00 Yes 2 puff, INHALER, Q6H, PRN wheezing, coughing, or shortness of breath, # 1 ea, 1 Refill(s) Syed Sprague Symbicort 160/4.5 inhalation aerosol with adapter 2018-04-05 03:40:00 Yes 2 puff, INHALATION, BID, # 1 ea, 1 Refill(s) Syed Sprague Vancomycin 2018-04-05 02:00:00 No 2001 mg: infuse over 2.5 hours For adult patients only: Round to nearest 250 mg per Medical Staff approval MEDICATION WASTE Product Size: 1000 mg Product Wasted: ___ mg Syed Sprague Lactated Ringers IV 1,000 mL 2018-04-05 01:25:00 No 1,000 mL, Rate: 125 ml/hr, Infuse over: 8 hr, Route: IV, Dosing Weight 97.727 kg, Total Volume: 1,000, Priority: STAT, Start date: 04/04/18 20:25:00 CDT, Duration: 30 day, Stop date: 05/04/18 20:24:00 CDT, 2.16, m2 De bijan Sprague Sodium Chloride 0.9% IV 984.8 mL + M.V.I .-12 10 mL Daily + folic acid IV 1 mg Daily + thiamine IV 5 2018-04-05 01:10:00 No 984.8 mL, Rate: 125 ml/hr, Infuse over: 8 hr, Route: IV, Dosing Weight 97.727 kg, Total Volume: 1,000, Start date: 04/04/18 20:10:00 CDT, Duration: 1 doses or times, Stop date: 04/05/18 4:09:00 CDT, 2.16, m2 Syed Sprague iodixanol 2018-04-04 19:49:00 No 100 mL, Route: IVP, Drug Form: SOLN, Dosing Weight 97.727, kg, ONCALL, STAT, Start date: 04/04/18 14:49:00 CDT, Duration: 1 doses or times, Dose = 2.2ml/kg, Max dose = 100ml -- "To be infused by Radiology Staff ONLY" Syed Kauffman n Vancomycin 2018-04-04 18:13:00 No 2001 mg: infuse over 2.5 hours For adult patients only: Round to nearest 250 mg per Medical Staff approval MEDICATION WASTE Product Size: 1000 mg Product Wasted: ___ mg [facility] Flagyl 2018-04-04 18:13:00 No Notes: (Same as: Parish) [facility] normal saline 0.9% IV 1000 mL 2018-04-04 17:24:00 No 1,000 mL, Rate: 100 ml/hr, Infuse over: 10 hr, Route: IV, Dosing Weight 97.727 kg, Total Volume: 1,000, Start date: 04/04/18 12:24:00 CDT, Duration: 30 day, Stop date: 05/04/18 12:23:00 CDT, 2.16, m2 Syed Sprague Ceftriaxone 2018-04-04 16:48:00 No 1 gm, Route: IVPB, Drug form: PDR/INJ, ONCE, Dosing Weight 97.727, kg, Priority: STAT, Start date: 04/04/18 11:48:00 CDT, Stop date: 04/04/18 11:48:00 CDT, ABX Indication: Skin/Soft Tissue Infection [facility] Saline Flush 0.9% 2018-04-04 16:48:00 No Notes: Same as: BD Posiflush Sterile [facility] Sodium Chloride 0.9% (Bolus) IV 2018-04-04 16:48:00 No 2,931.81 mL, 1954.54 ml/hr, Infuse Over: 1.5 hr, Route: IV, 2,931.81, Drug form: INJ, ONCE, Priority: STAT, Dosing Weight 97.727 kg, Start date: 04/04/18 11:48:00 CDT, Stop date: 04/04/18 11:48:00 CDT Syed swenson Carbidopa 25 MG / Levodopa 100 MG Oral Tablet 2018-04-04 03:37:0 0 No 1 tab, PO, BID, # 90 tab, 0 Refill(s) Syed [place] albuterol (PROAIR HFA) 90 mcg/actuation inhaler 2018-02-06 11:31 :10 Yes 2{puff} Q6H Inhale 2 puffs every 6 (six) hours as needed for wheez ing. Rock Santana budesonide-formoterol (SYMBICORT) 160-4.5 mcg/actuation inha ler 2018-02-06 11:31:10 Yes 2{puff} Q.5D Inhale 2 puffs 2 (two) times a day. Rock Santana valsartan (DIOVAN) 80 MG tablet 2017-12-27 11:53:31 Yes 80mg Q.5D Take 80 mg by mouth 2 (two) times a day. Abimbola Santana sertraline (ZOLOFT) 50 MG tablet 2017-08-20 12:57:26 Yes 100mg QD Take 100 mg by mouth daily . [facility] gabapentin (NEURONTIN) 600 MG tablet 2017-08-20 10:17:03 Yes 600mg Q.25D Take 600 mg by mouth 4 (four) times daily. [facility] Protonix 2017-08-14 22:30:00 No Notes: Tablet should not be chewed or crushed. (Same as: Protonix) [facility] heparin sodium, porcine 2500 UNT/ML Injectable Solution 2017-08-14 22:00:00 No Notes: porcine heparin [facility] Levetiracetam 500 MG Oral Tablet [Keppra] 2017-08-14 17:54:00 Yes 500 mg = 1 tab, PO, Q12H, # 12 tab, 0 Refill(s) [facility] Thiamine 2017-08-14 15:00:00 No Notes: (Vito e As: Vitamin B1) [facility] multivitamin 2017-08-14 15:00:00 No Notes: (Same as:Thera) WASTE: F/P - Black; E - Municipal Trash Bin Take with food. [facility] Folic Acid 2017-08-14 15:00:00 No Notes: (S rosina as: Folvite) 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 PROCESS ENGINEER, Duration: 30 day, Stop date: 09/12/17 9:00:00 MEMS PROCESS ENGINEER [facility] Thyroxine 2017-08-14 12:30:00 No Notes: Take 1 hour before or 2 hours after meal; Enteral feeds may interefere with the absorption of this medication.(Same as:Levothroid, Synthroid) [facility] gabapentin 600 MG Oral Tablet 2017-08-14 04:07:00 No Notes: (Same as: Neurontin) [facility] Ranitidine 2017-08-14 03:00:00 No Notes: (Same as:Zantac) Take before or with meals [facility] metoprolol tartrate 2017-08-14 03:00:00 No Notes: (Same as: Lopressor) [facility] Regular Insulin, Human 100 UNT/ML Injectable Solution 2017-08-14 02:03:00 No 60 units) [place] JASMIN: F/P - Black; E - Municipal Trash Bin Stable for 28 days at room temperature Expires in days from Date Syed Sprague Dextrose 50% Syringe 2017-08-14 02:03:00 No 6.25 gm, 12.5 mL, Route: IVP, Drug Form: INJ, Dosing Weight 100, kg, PRN, PRN Abnormal Lab Result, Start date: 08/13/17 20:03:00 MEMS PROCESS ENGINEER, Duration: 30 day, Stop date: 09/12/17 20:02:[address] [facility] Amiodarone 2017-08-14 02:03:00 No Notes: (S rosina as: Cordarone) Syed Leungann Acetaminophen 325 MG / Hydrocodone Bitartrate 5 MG Oral Tabl et [[place] 5/325] 2017-08-14 02:03:00 No Notes: (Same as: [place] 325/5) Do not exceed 4gm/day of acetaminophen. [facility] Jess nn Labetalol 2017-08-14 00:38:00 No 10 mg, 2 mL, Route: IVP, Drug form: INJ, Q15Min, Dosing Weight 100, kg, PRN Hypertension, Start date: 08/13/17 18:38:00 MEMS PROCESS ENGINEER, Duration: 30 day, Stop date: 09/12/17 18:37:[address] [facility] Hydralazine 2017-08-14 00:38:00 No Notes: (Same as: Apresoline) Push over [address] [facility] Dilaudid 2017-08-13 22:07:00 No 0.5 mg, Route: IVP, ONCE, kg, Priority: STAT, Start date: 08/13/17 16:07:00 MEMS PROCESS ENGINEER, Stop date: 08/13/17 16:07:[address] [facility] ranitidine 300 mg oral capsule 2017-08-13 15:49:00 Yes 300 mg = 1 cap, PO, Bedtime, 0 Refill(s) Syed rodriguez levothyroxine 50 mcg (0.05 mg) oral tablet 2017-08-13 15:49:00 Yes 50 microgram = 1 tab, PO, Daily, 0 Refill(s) [facility] torsemide 10 mg oral tablet 2017-08-13 15:48:00 Yes 10 mg = 1 tab, PO, Daily, 0 Refill(s) Syed Sprague AMIODarone 200 mg oral tablet 2017-08-13 15:48:00 Yes 200 mg = 1 tab, PO, Daily, # 90 tab, 3 Refill(s) De bijan Sprague gabapentin 600 MG Oral Tablet 2017-08-13 15:48:00 Yes 600 mg = 1 tab, PO, QID, 0 Refill(s) [facility] Jess nn metoprolol tartrate 25 mg oral tablet 2017-08-13 15:44:00 Y es 25 mg = 1 tab, PO, BID, 0 Refill(s) [facility] Zeny rodriguez rivaroxaban 20 MG Oral Tablet [Xarelto] 2017-08-13 15:43:00 No 20 mg = 1 tab, PO, QPM, 0 [facility] 2017-08-13 15:43:00 Yes 5 microgram = 1 tab, PO, Daily, 0 Refill[facility] 20 [facility] oral enteric coated tablet 2017-08-13 15:42:00 Yes 20 mg = 1 tab, PO, Daily, 0 Refill(s) [facility] [facility] Dilaudid 2017-08-13 15:29:00 No Notes: Same as Dilaudid [facility] Lidocaine Hydrochloride 10 MG/ML Injectable Solution 08-13 15:18:00 No Notes: (Same as: Xylocaine) [facility] Saline Flush 0.9% 2017-08-13 15:00:00 No Notes: Same as: BD Posiflush Sterile [facility] sennosides, HALF-WAY 2017-08-13 15:00:00 No Notes: (Same as: Senokot) [facility] Docusate 2017-08-13 15:00:00 No Notes: (Same as: Colace) (Do Not Crush) [facility] Levetiracetam 2017-08-13 15:00:00 No Notes: Same as Keppra Mix with 100 mL NS, LR or D5W MEDICATION WASTE Product Size: 500 mg Product Wasted: ___ mg [facility] Fentanyl 2017-08-13 14:00:00 No 50 kg [facility] Saline Flush 0.9% 2017-08-13 12:18:00 No Notes: (Same as: BD Posiflush) Syed Sprague Ondansetron 2017-08-13 12:18:00 No Notes: (Same as: Zofran) MEDICATION WASTE Product Size: 4 mg Product Wasted: ___ mg Syed Sprague Bisacodyl 2017-08-13 12:18:00 No Notes: (Same As: Dulcolax, Bisco-Lax) Syed Sprague Acetaminophen 325 MG / Hydrocodone Bitartrate 10 MG Oral Tab let 2017-08-13 12:18:00 No Notes: Do not exceed 4gm/day of acetaminophen. (Same as: [place] 325/10) Syed Sprague Acetaminophen 2017-08-13 12:18:00 No Notes: Do not exceed 4 gm/day. (Same as: Tylenol) Syed Sprague Acetaminophen 325 MG / Hydrocodone Bitartrate 5 MG Oral Tabl et 2017-08-13 12:18:00 No Notes: (Sa me as: [place] 325/5) Do not exceed 4gm/day of acetaminophen. [facility] Sodium Chloride 0.9% IV 1,000 mL 2017-08-13 12:18:00 No 1,000 mL, Rate: 50 ml/hr, Infuse over: 20 hr, Route: IV, Total Volume: 1,000, Start date: 08/13/17 6:18:00 MEMS PROCESS ENGINEER, Duration: 30 day, Stop date: 09/12/17 6:17:00 MEMS PROCESS ENGINEER Syed Sprague Keppra 2017-08-13 11:08:00 No 1,000 mg, Route: IV, ONCE, kg, Priority: NOW, Start date: 08/13/17 5:08:00 MEMS PROCESS ENGINEER, Stop date: 08/13/17 5:08:[address] [facility] Saline Flush 0.9% 2017-08-13 11:07:00 No Notes: Same as: BD Posiflush Sterile [facility] XARELTO 20 mg tablet 2017-04-25 00:00:00 Yes 20mg QD Take 20 mg by mouth once daily. with food [facility] albuterol HFA (PROAIR HFA) 90 mcg/actuation inhaler 04-19 00:00:00 Yes INHALE 2 (TWO) PUFFS EVERY FOUR HOURS, A S NEEDED [facility] omeprazole (PriLOSEC) 20 MG capsule 2017-04-02 00:00:00 Yes 20mg QD Take 20 mg by mouth once daily. [place] [facility] torsemide (DEMADEX) 10 MG tablet 2017-03-08 00:00:00 Yes 10mg QD Take 10 mg by mouth every morning. [place] [facility] levothyroxine (SYNTHROID, LEVOXYL) 75 mcg tablet 2017-02-21 00:00:00 Yes 125ug QD Take 125 mcg by mouth once daily. [facility] Fentanyl 2017-02-16 20:02:00 No 50 microgram, Route: IVP, Drug form: INJ, ONCE, Dosing Weight 90.909, kg, Start date: 02/16/17 15:02:00 CDT, Stop date: 02/16/17 15:02:[address] [facility] testosterone cypionate (DEPOTESTOTERONE CYPIONATE) 200 mg/mL injection 2017-02-11 00:00:00 Yes INJECT 1 ML ONCE E VERY 2 WEEKS [facility] Versjavi 2017-02-08 15:30:00 No 0.5 mg, Route: IV, ONCE, Dosing Weight 90.909, kg, Start date: 02/08/17 10:30:00 CDT, Stop date: 02/08/17 10:30:[address] [facility] Fentanyl 2017-02-08 15:30:00 No 25 microgram, Route: IV, ONCE, Dosing Weight 90.909, kg, Start date: 02/08/17 10:30:00 CDT, Stop date: 02/08/17 10:30:00 CDT, [facility] Chunjavi 2017-02-08 15:00:00 No 0.5 mg, Route: IV, ONCE, Dosing Weight 90.909, kg, Start date: 02/08/17 10:00:00 CDT, Stop date: 02/08/17 10:00:00 CDT Syed Sprague Fentanyl 2017-02-08 15:00:00 No 25 microgram, Route: IV, ONCE, Dosing Weight 90.909, kg, Start date: 02/08/17 10:00:00 CDT, Stop date: 02/08/17 10:00:00 CDT, Syed Sprague Fentanyl 2017-02-08 14:20:00 No 50 microgram, Route: IV, ONCE, Dosing Weight 90.909, kg, Start date: 02/08/17 9:20:00 CDT, Stop date: 02/08/17 9:20:00 CDT, Syed Sprague Versed 2017-02-08 14:20:00 No 1 mg, Route: IV, ONCE, Dosing Weight 90.909, kg, Start date: 02/08/17 9:20:00 CDT, Stop date: 02/08/17 9:20:[address] [facility] sertraline (ZOLOFT) 100 MG tablet 2017 00:00:00 Yes TAKE 1 TABLET BY MOUTH EVERY DAY ORALLY 90 [facility] melatonin 3 mg oral tablet 2016-10-09 20:54:00 Yes 3 mg = 1 tab, PO, Bedtime, PRN Sleep, 0 Refill(s) Eliseo Sprague Ibuprofen 400 MG Oral Tablet 2016-10-09 20:54:00 Yes 400 mg = 1 tab, PO, Q4H, PRN Pain, X 7 day, # 42 tab, 0 Refill(s) Syed Sprague tramadol hydrochloride 50 MG Oral Tablet 2016-10-09 20:54:00 Yes 50 mg = 1 tab, PO, Q6H, PRN Pain, X 7 day, # 28 tab, 0 Refill(s) Syed Sprague Trazodone 2016-10-09 05:12:00 No Notes: ([facility] As: Desyrel) Syed Sprague remove patch 2016-10-09 05:00:00 No Notes: Remove old patch before application of new patch. Syed guillen Trazodone Hydrochloride 50 MG Oral Tablet 2016-10-09 00:14:00 No Notes: (Same As: Desyrel) Syed guillen Melatonin 2016-10-08 05:46:00 No Notes: ([facility] as: Melatonin) [facility] Xarelto 2016-10-07 23:00:00 No Notes: (Same as: Xarelto) Administer with food [facility] pantoprazole 2016-10-07 13:30:00 No 40 mg, Route: PO, Drug form: ECTAB, Before Breakfast, Dosing Weight 84.091, kg, Start date: 10/07/16 7:30:00 MEMS PROCESS ENGINEER, Duration: 30 day, Stop date: 11/05/16 7:30:00 CDT [facility] Pro[facility] 2016-10-06 17:30:00 No Notes: Tablet should not be chewed or crushed. (Same as: Protonix) [facility] Thyroxine 2016-10-06 17:30:00 No Notes: Take 1 hour before or 2 hours after meal; Enteral feeds may interefere with the absorption of this medication. (Same as:Synthroid, Levothroid) [facility] Sertraline 2016-10-06 15:00:00 No Notes: (S rosina as: Zoloft) [facility] Omeprazole 2016-10-06 15:00:00 No 20 mg, Route: PO, Drug form: DRC, Daily, Dosing Weight 84.091, kg, Start date: 10/06/16 9:00:00 MEMS PROCESS ENGINEER, Duration: 30 day, Stop date: 11/04/16 9:00:00 CDT [facility] 2016-10-06 15:00:00 No Notes: (Same as: Lopressor) [facility] Amiodarone 2016-10-06 15:00:00 No Notes: (S rosina as: Cordarone) Syed Sprague Lovenox 2016-10-06 15:00:00 No Notes: (Same as: Lovenox) Syed Sprague heparin sodium, porcine 2500 UNT/ML Injectable Solution 2016-10-06 14:00:00 No Notes: porcine heparin M emorikrish Sprague Plasma-Lyte A PH-7.4 1000 ml INJ 1,000 mL 2016-10-06 13:25:00 No Notes: WASTE: F/P - Sink; E - Municipal Trash Bin Syed Sprague Isolyte S PH-7.4 (Bolus) IV 2016-10-06 11:51:00 No Notes: (Same as: Isolyte S PH7.4) Syed Sprague Insulin, Aspart, Human 2016-10-06 11:50:00 No Notes: Roll in palms of hands gently; Do not shake vigorously. (Same as: NovoLOG) "single patient use only" WASTE: F/P - Black; E - Municipal Trash Bin Stable for 28 days at room temperature. 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, Duration: 30 day, Stop date: 11/05/16 6:49:00 CDT Syed Sprague Glucagon 2016-10-06 11:50:00 No 1 mg, Route: IM, Drug form: PDR/INJ, PRN, Dosing Weight 84.091, kg, PRN Blood Glucose Results, Start date: 10/06/16 5:50:00 MEMS PROCESS ENGINEER, Duration: 30 day, Stop date: 11/05/16 6:49:00 CDT Syed Sprague Flomax 2016-10-06 04:54:00 No Notes: (Same As: Flomax) "Do Not Crush" Syed Sprague Docusate Sodium 100 MG Oral Capsule 2016-10-05 23:00:00 No Notes: (Same as: Colace) (Do Not Crush) Eliseo Sprague Labetalol 2016-10-05 22:07:00 No 10 mg, 2 mL, Route: IVP, Drug form: INJ, Q5Min, Dosing Weight 84.091, kg, PRN Elevated BP, Start date: 10/05/16 16:07:00 MEMS PROCESS ENGINEER, Duration: 5 doses or times, Stop date: Limited # of times [facility] Flumazenil 2016-10-05 22:07:00 No Notes: (S rosina as: Romazicon) [facility] Naloxone 2016-10-05 22:07:00 No Notes: Same as Narcan [facility] Ondansetron 2016-10-05 22:07:00 No Notes: (Same as: Zofran) MEDICATION WASTE Product Size: 4 mg Product Wasted: ___ mg [facility] Hydralazine 2016-10-05 22:07:00 No Notes: (Same as: Apresoline) Push over 5 minutes [facility] Oxycodone Hydrochloride 5 MG Oral Tablet 2016-10-05 22:00:00 No Notes: (Same as: Roxicodone) [facility] Acetaminophen 2016-10-05 22:00:00 No Notes: Max acetaminophen 4000 mg/day (4 gm/day). (Same as: Tylenol Extra Strength) [facility] gabapentin 2016-10-05 22:00:00 No Notes: (S rosina as: Neurontin) [facility] Tramadol 2016-10-05 22:00:00 No Notes: Not to exceed 400mg/day. (Same As: Ultram) [facility] celecoxib 2016-10-05 22:00:00 No Notes: NSAID. Please check indication. Not for seizure. (Same As: CeleBREX ) [facility] ropivacaine 2016-10-05 21:58:00 No Notes: S rosina as: Naropin [facility] Enoxaparin 2016-10-05 21:00:00 No 40 mg, Route: SUB-Q, Drug form: INJ, [id number], Dosing Weight 84.091, kg, Start date: 10/05/16 15:00:00 MEMS PROCESS ENGINEER, Duration: 30 day, Stop date: 11/03/16 15:00:00 CDT [facility] Ancef 2016-10-05 17:50:00 No 1 gm, Route: IVPB, ONCE, Dosing Weight 84.091, kg, Start date: 10/05/16 11:50:00 MEMS PROCESS ENGINEER, Stop date: 10/05/16 11:50:[address] [facility] Ofirmev 2016-10-05 12:00:00 No Notes: Infuse over 15 minutes Do not exceed 4gm/day of acetaminophen MEDICATION WASTE Product Size: 1000 mg Product Wasted: ___ mg Syed swenson scopolamine 2016-10-05 12:00:00 No Notes: Change patch every 72 hours (Same as: Transderm-Scop) Marc Ayala ceFAZolin 2016-10-05 12:00:00 No Notes: Vito e as: Ancelizabeth Sprague Ondansetron 4 MG Disintegrating Tablet [Zofran] 2016-09-12 15:41 :58 Yes 4 mg = 1 tab, PO, BID, PRN N ausea and Vomiting, Dissolve tab under tongue, X 5 day, # 10 tab, 0 Refill(s) [facility] markosrafal tramadol hydrochloride 50 MG Oral Tablet 2016-09-12 15:41:54 Yes 50 mg = 1 tab, PO, Q4H, X 3 day, # 18 tab, 0 Refill(s) [facility] Acetaminophen 300 MG / Codeine Phosphate 30 MG Oral Tablet [Tylenol with Codeine #3] 2016-09-12 15:41:50 Yes 1 - 2 tab, PO, Q6H, PRN Pain, X 4 day, # 32 tab, 0 Refill(s) [facility] rivaroxaban 20 MG Oral Tablet [Xarelto] 2016-09-12 15:16:00 Yes 20 mg = 1 tab, PO, QPM, # 30 tab, 3 Refill(s) [facility] Habitrol 2016-09-12 15:00:00 No Notes: (Same as: Habitrol) "Remove old patch before application of new patch" WASTE: F/P - P Waste Black; E - P Waste Black [facility] tramadol hydrochloride 50 MG Oral Tablet 2016-09-12 14:04:00 No 50 mg = 1 tab, PO, Q4H, X 3 day, # 18 tab, 0 Refill(s) [facility] Acetaminophen 300 MG / Codeine Phosphate 30 MG Oral Tablet [Tylenol with Codeine #3] 2016-09-12 14:04:00 No 1 - 2 tab, PO, Q6H, PRN Pain, X 4 day, # 32 tab, 0 Refill(s) Syed Sprague Ondansetron 4 MG Disintegrating Tablet [Zofran] 2016-09-12 14:04 :00 No 4 mg = 1 tab, PO, BID, PRN N ausea and Vomiting, Dissolve tab under tongue, X 5 day, # 10 tab, 0 Refill(s) [facility] Tien mcfarland Amlodipine 2016-09-11 15:00:00 No Notes: (S rosina as: Norvasc) [facility] Magnesium Sulfate 2016-09-11 07:15:00 No Notes: WASTE: F/P - Sink; E - Municipal Trash Bin [facility] Plasma-Lyte A PH-7.4 1000 ml INJ 1,000 mL 2016-09-10 15:49:00 No Notes: WASTE: F/P - Sink; E - Municipal Trash Bin [facility] Thyroxine 2016-09-10 13:00:00 No Notes: Take 1 hour before or 2 hours after meal; Enteral feeds may interefere with the absorption of this medication. (Same as:Synthroid, Levothroid) [facility] metoprolol tartrate 2016-09-10 03:00:00 No Notes: (Same as: Lopressor) [facility] Sertraline 2016-09-09 21:30:00 No Notes: (S rosina as: Zoloft) [facility] Diltiazem 2016-09-09 21:30:00 No Notes: (Same as: Cardizem CD) Do Not Crush Before meals. [facility] Jam[facility] page Amiodarone 2016-09-09 21:00:00 No Notes: (S [facility] as: Cordarone) [facility] remove patch 2016-09-09 15:00:00 No Notes: Remove old patch before application of new patch. WASTE: F/P - P Waste Black; E - P Waste Black [facility] Hydralazine 2016-09-09 06:08:00 No Notes: (Same as: Apresoline) Push over 5 minutes [facility] Nicotine 2016-09-08 21:50:00 No Notes: (Same as: Habitrol) "Remove old patch before application of new patch" WASTE: F/P - P Waste Black; E - P Waste Black Syed Sprague phenol 2016-09-08 13:44:00 No Notes: Chloraseptic [place] (Same as: Chloraseptic, Sore Throat [place]) WASTE: F/P - Black; E - Municipal Trash Bin Syed Sprague Lovenox 2016-09-08 00:00:00 No Notes: (Same as: Lovenox) Syed Sprague Protonix 2016-09-07 23:12:00 No Notes: For IV push reconstitute with 10 ml 0.9% sodium chloride and push over 2 minutes. 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 diltiazem 120 mg/24 hours oral capsule, extended release 2016-09-07 20:17:00 Yes 120 mg = 1 cap, PO, Daily, # 90 cap, 0 Refill(s) [facility] Furosemide 40 MG Oral Tablet 2016-09-07 20:16:00 Yes 40 mg = 1 tab, PO, Daily Syed Leungann metoprolol tartrate 25 mg oral tablet 2016-09-07 17:20:00 Y es 25 mg = 1 tab, PO, BID, # 60 tab, 0 Refill(s) [facility] sertraline 50 mg oral tablet 2016-09-07 17:20:00 Yes 50 mg = 1 tab, PO, Daily, # 30 tab, 1 Refill(s) [facility] levothyroxine 75 mcg (0.075 mg) oral tablet 2016-09-07 17:20:00 Yes 75 microgram = 1 tab, PO, Daily, # 30 tab, 0 Refill(s) [facility] multivitamin 2016-09-07 17:20:00 Yes 1 tab, PO, Daily, 0 Refill(s) [facility] liothyronine 50 mcg oral tablet 2016-09-07 17:20:00 Yes 50 microgram = 1 tab, PO, Daily, # 30 tab, 0 Refill(s) [facility] Testosterone 2016-09-07 17:20:00 Yes 0 Refil l(s) Syed Sprague omeprazole 20 mg oral delayed release capsule 2016-09-07 17:20:0 0 Yes 20 mg = 1 cap, PO, Daily, # 30 cap, 1 Refill(s) [facility] rivaroxaban 20 MG Oral Tablet [Xarelto] 2016-09-07 17:20:00 No 20 mg = 1 tab, PO, QPM, # 30 tab, 3 Refill(s) [facility] AMIODarone 200 mg oral tablet 2016-09-07 17:20:00 Yes 200 mg = 1 tab, PO, Daily, # 90 tab, 3 Refill(s) [facility] Dilaudid 2016-09-07 15:16:00 No Notes: Same as Dilaudid Syed Sprague Ondansetron 2016-09-07 15:15:00 No Notes: (Same as: Aagpito) MEDICATION WASTE Product Size: 4 mg Product Wasted: ___ mg [facility] Promethazine 2016-09-07 15:15:00 No Notes: Do not give IV push. 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 [facility] omeprazole (PRILOSEC) 20 MG capsule 2016-08-14 20:18:10 Yes 20mg QD Take 20 mg by mouth daily. [facility] testosterone cypionate (DEPOTESTOTERONE CYPIONATE) 200 mg/mL injection 2016-08-14 20:18:10 Yes Q14D Inject intramuscularly every 14 (fourteen) days. [facility] metoprolol (LOPRESSOR) 25 MG tablet 2016-08-14 00:00:00 Yes 25mg Take 25 mg by mouth. [facility] amiodarone (PACERONE) 200 MG tablet 2016-07-23 00:00:00 Yes 200mg 200 mg. [facility] Multivitamins TABS Multivitamins TABS 2008-03-30 00:00:00 Yes 1 QD TAKE 1 TABLET DAILY. [facility] Albuterol Sulfate (Proair Hfa Inhaler*) 8.5 Gm Inh Alb uterol Sulfate (Proair Hfa Inhaler*) 8.5 Gm Inh Yes 2 Ev victoria 4 Hours as needed for Shortness Of Breath [facility] Amiodarone Hcl 200 Mg Tablet Amiodarone Hcl 200 Mg Tablet Y es 100 Daily [facility] Gabapentin 300 Mg Capsule Gabapentin 300 Mg Capsule Yes 600 Four Times Daily [facility] Levothyroxine Sodium 75 Mcg Tablet Levothyroxine Sodium 75 Mcg Tablet Yes 75 Daily [facility] Liothyronine Sodium 5 Mcg Tablet Liothyronine Sodium 5 Mcg Tablet Yes 50 Daily [facility] Metoprolol Tartrate 25 Mg Tablet Metoprolol Tartrate 25 Mg Tablet Yes 25 Twice A Day [facility] Mometasone/Formoterol (Dulera 200 Mcg/5 Mcg Inhaler) 1 3 Gm Hfa.aer.ad Mometasone/Formoterol (Dulera 200 Mcg/5 Mcg Inhaler) 13 Gm Hfa.aer.ad Yes 2 Twice A Day [facility] Multivitamin (Multi-Vitamin Daily) 1 Each Tablet Multi vitamin (Multi-Vitamin Daily) 1 Each Tablet Yes [facility] Omeprazole 40 Mg Capsule. Omeprazole 40 Mg Capsule. Yes 20 Daily [facility] Rivaroxaban (Xarelto) 10 Mg Tablet Rivaroxaban (Xarelto) 10 Mg Tablet Yes 1 Daily [facility] Rivaroxaban (Xarelto) 20 Mg Tablet Rivaroxaban (Xarelto) 20 Mg Tablet Yes 20 Daily [facility] Sertraline Hcl 50 Mg Tablet Sertraline Hcl 50 Mg Tablet Yes 50 Twice A Day [facility] Testosterone Cypionate 200 Mg/1 Ml Vial Testosterone Cypiona te 200 Mg/1 Ml Vial Yes 1 Use As Directed C [facility] Torsemide 10 Mg Tablet Torsemide 10 Mg Tablet Yes 1 Daily [facility] Metoprolol Tartrate 25 MG Oral Tablet Metoprolol Tartrate 25 MG Ora l Tablet Yes TAKE 1 TABLET BY MOUTH TWICE DAILY [facility] Tylenol with Codeine #3 300-30 MG Oral Tablet Tylenol with Codeine #3 300-30 MG Oral Tablet Yes [facility] Xarelto TABS Xarelto TABS Yes [facility] Sertraline HCl TABS Sertraline HCl TABS Yes [facility] Torsemide TABS Torsemide TABS Yes [facility] Gabapentin TABS Gabapentin TABS Yes [facility] L-Thyroxine Sodium 125 MCG TABS L-Thyroxine Sodium 125 MCG TABS Yes [facility] Omeprazole 20 MG Oral Tablet Delayed Release Omeprazol e 20 MG Oral Tablet Delayed Release Yes [facility] Ranitidine TABS Ranitidine TABS Yes [facility] Carbidopa-Levodopa TABS Carbidopa-Levodopa TABS Yes [facility] ProAir HFA AERS ProAir HFA AERS Yes [facility] Symbicort AERO Symbicort AERO Yes [facility] Veltassa 8.4 GM Oral Packet Veltassa 8.4 GM Oral Packet Yes [facility] Valsartan TABS Valsartan TABS Yes [facility] Acetaminophen 325 Mg Tablet, 650 Mg Oral Acetaminophen 325 Mg Tablet, 650 Mg Oral 2016-08-14 00:00:00 No 650 Once [facility] Immunizations Ordered Immunization Name Filled Immunization Name Date Status Comments Source PPD 2008-03-30 00:00:00 Completed [facility] Vital Signs Vital Name Observation Time Observation Value Comments Source BP Systolic 2019-09-16 12:52:00 130 mm[Hg] Location: L[place]; Positi on: Sitting [facility] BP Diastolic 2019-09-16 12:52:00 93 mm[Hg] Location: [place]; Positi on: Sitting [facility] Height 2019-09-16 12:52:00 66 [in_us] [facility] Weight 2019-09-16 12:52:00 254.125 [lb_av] [facility] Body Mass Index Calculated 2019-09-16 12:52:00 41.02 kg/m2 [facility] Temperature 2019-09-16 12:52:00 97.4 [degF] Method: Oral [facility] Heart Rate 2019-09-16 12:52:00 76 /min [facility] BP Systolic 2019-07-15 12:48:00 140 mm[Hg] Location: [place]; Positi on: Sitting [facility] BP Diastolic 2019-07-15 12:48:00 68 mm[Hg] Location: [place]; Positi on: Sitting [facility] Height 2019-07-15 12:48:00 66 [in_us] [facility] Body Mass Index Calculated 2019-07-15 12:48:00 32.77 kg/m2 [facility] Weight 2019-07-15 12:48:00 203 [lb_av] [facility] Temperature 2019-07-15 12:48:00 96.8 [degF] Method: Oral [facility] Heart Rate 2019-07-15 12:48:00 64 /min [facility] BP Systolic 2019-07-15 12:30:00 142 mm[Hg] Location: [place]; Positi on: Sitting [facility] BP Diastolic 2019-07-15 12:30:00 79 mm[Hg] Location: [place]; Positi on: Sitting [facility] Height 2019-07-15 12:30:00 66 [in_us] [facility] Body Mass Index Calculated 2019-07-15 12:30:00 40.53 kg/m2 [facility] Weight 2019-07-15 12:30:00 251.125 [lb_av] [facility] Temperature 2019-07-15 12:30:00 98.4 [degF] Method: Oral [facility] Heart Rate 2019-07-15 12:30:00 96 /min [facility] BP Systolic 2019-06-24 15:13:00 114 mm[Hg] Location: [place] Positi on: Sitting [facility] BP Diastolic 2019-06-24 15:13:00 62 mm[Hg] Location: [place] Positi on: Sitting [facility] Height 2019-06-24 15:13:00 66 [in_us] [facility] Weight 2019-06-24 15:13:00 259 [lb_av] [facility] Body Mass Index Calculated 2019-06-24 15:13:00 41.8 kg/m2 [facility] Temperature 2019-06-24 15:13:00 97.9 [degF] Method: Oral [facility] Heart Rate 2019-06-24 15:13:00 83 /min [facility] Temperature Oral (F) 2019-06-05 12:27:00 98.0 [facility] Heart Rate 2019-06-05 12:27:00 [facility] Respitory Rate 2019-06-05 12:27:00 [facility] [place] Systolic (mm Hg) 2019-06-05 12:27:00 Jorge [facility] [place] Diastolic (mm Hg) 2019-06-05 12:27:00 Mem [facility] [place] Temperature Oral (F) 2019-06-05 09:25:00 98.1 F [facility] Heart Rate 2019-06-05 09:25:00 [facility] [place] Respitory Rate 2019-06-05 09:25:00 Memori [facility] [place] Systolic (mm Hg) 2019-06-05 09:25:00 Jorge rial [place] Diastolic (mm Hg) 2019-06-05 09:25:00 [facility] [place] Temperature Oral (F) 2019-06-05 04:25:00 98.2 F [facility] Heart Rate 2019-06-05 04:25:00 [facility] Respitory Rate 2019-06-05 04:25:00 [facility] [place] Systolic (mm Hg) 2019-06-05 04:25:00 Jorge rial [place] Diastolic (mm Hg) 2019-06-05 04:25:00 [facility] [place] Height 2019-06-03 01:00:00 167.64 cm [facility] Weight 2019-06-03 01:00:00 Syed Sprague BMI Calculated 2019-06-03 01:00:00 Marc Ayala Height 2019-06-02 17:23:00 167.64 cm Syed Sprague Weight 2019-06-02 17:23:00 Syed Sprague BMI Calculated 2019-06-02 17:23:00 Marc Ayala Height 2019-05-13 09:39:00 66 [in_us] [facility] Weight 2019-05-13 09:39:00 259.5 [lb_av] [facility] Body Mass Index Calculated 2019-05-13 09:39:00 41.88 kg/m2 [facility] Temperature 2019-05-13 09:39:00 97.6 [degF] Method: Oral [facility] BP Systolic 2019-01-03 11:12:00 131 mm[Hg] Location: [place]; Positi on: Sitting [facility] BP Diastolic 2019-01-03 11:12:00 77 mm[Hg] Location: [place]; Positi on: Sitting [facility] Height 2019-01-03 11:12:00 66 [in_us] [facility] Weight 2019-01-03 11:12:00 247 [lb_av] [facility] Body Mass Index Calculated 2019-01-03 11:12:00 39.87 kg/m2 [facility] Temperature 2019-01-03 11:12:00 97.6 [degF] Method: Oral [facility] Heart Rate 2019-01-03 11:12:00 80 /min [facility] BP Systolic 2018-11-29 10:59:00 132 mm[Hg] Location: [place]; Positi on: Sitting [facility] BP Diastolic 2018-11-29 10:59:00 77 mm[Hg] Location: [place]; Positi on: Sitting [facility] Height 2018-11-29 10:59:00 66 [in_us] [facility] Weight 2018-11-29 10:59:00 233 [lb_av] [facility] Body Mass Index Calculated 2018-11-29 10:59:00 37.61 kg/m2 [facility] Temperature 2018-11-29 10:59:00 97.3 [degF] Method: Oral [facility] Heart Rate 2018-11-29 10:59:00 75 /min [facility] BP Systolic 2018-11-20 08:38:00 119 mm[Hg] [facility] BP Diastolic 2018-11-20 08:38:00 65 mm[Hg] [facility] Height 2018-11-20 08:38:00 66 [in_us] [facility] Weight 2018-11-20 08:38:00 233 [lb_av] [facility] Body Mass Index Calculated 2018-11-20 08:38:00 37.61 kg/m2 [facility] Temperature 2018-11-20 08:38:00 97.3 [degF] [facility] Heart Rate 2018-11-20 08:38:00 83 /min [facility] BP Systolic 2018-11-12 11:30:00 132 mm[Hg] Location: [place]; Positi on: Sitting [facility] BP Diastolic 2018-11-12 11:30:00 75 mm[Hg] Location: [place]; Positi on: Sitting [facility] Height 2018-11-12 11:30:00 66 [in_us] [facility] Weight 2018-11-12 11:30:00 234 [lb_av] [facility] Body Mass Index Calculated 2018-11-12 11:30:00 37.77 kg/m2 [facility] Temperature 2018-11-12 11:30:00 97.4 [degF] Method: Oral [facility] Heart Rate 2018-11-12 11:30:00 80 /min [facility] BP Systolic 2018-10-29 00:00:00 132 mm[Hg] Location: [place]; Positi on: Sitting [facility] BP Diastolic 2018-10-29 00:00:00 80 mm[Hg] Location: [place]; Positi on: Sitting [facility] Height 2018-10-29 00:00:00 66 [in_us] [facility] Weight 2018-10-29 00:00:00 233.25 [lb_av] [facility] Body Mass Index Calculated 2018-10-29 00:00:00 37.65 kg/m2 [facility] Temperature 2018-10-29 00:00:00 98.1 [degF] Method: Oral [facility] Heart Rate 2018-10-29 00:00:00 77 /min [facility] BP Systolic 2018-10-15 11:35:00 126 mm[Hg] Location: [place] Waller on: Sitting [facility] BP Diastolic 2018-10-15 11:35:00 76 mm[Hg] Location: [place] Waller on: Sitting [facility] Height 2018-10-15 11:35:00 66 [in_us] [facility] Weight 2018-10-15 11:35:00 229 [lb_av] [facility] Body Mass Index Calculated 2018-10-15 11:35:00 36.96 kg/m2 [facility] Temperature 2018-10-15 11:35:00 96.7 [degF] Method: Oral [facility] Heart Rate 2018-10-15 11:35:00 81 /min [facility] Temperature Oral (F) 2018-10-10 22:05:00 98 F [facility] Systolic (mm Hg) 2018-10-10 22:05:00 Jorge rial [place] Diastolic (mm Hg) 2018-10-10 22:05:00 [facility] [place] Heart Rate 2018-10-10 22:05:00 [facility] Respitory Rate 2018-10-10 22:05:00 [facility] [place] Systolic (mm Hg) 2018-10-10 18:01:00 Jorge rial [place] Diastolic (mm Hg) 2018-10-10 18:01:00 [facility] [place] Heart Rate 2018-10-10 18:01:00 [facility] [place] Respitory Rate 2018-10-10 18:01:00 [facility]ori [facility] [place] Temperature Oral (F) 2018-10-10 18:01:00 98 F [facility] [place] Respitory Rate 2018-10-10 14:17:00 [facility] [place] Temperature Oral (F) 2018-10-10 14:17:00 97.9 F [facility] [place] Systolic (mm Hg) 2018-10-10 14:17:00 Jorge rial [place] Diastolic (mm Hg) 2018-10-10 14:17:00 Mem [facility] [place] Heart Rate 2018-10-10 14:17:00 [facility] [place] Weight 2018-10-07 03:08:00 [facility] BMI Calculated 2018-10-07 03:08:00 Marc rutherford [place] Height 2018-10-07 03:08:[address] [facility] [place] BP Systolic 2018-09-24 11:28:00 134 mm[Hg] Location: [place]; Positi on: Sitting [facility] BP Diastolic 2018-09-24 11:28:00 74 mm[Hg] Location: [place]; Positi on: Sitting [facility] Height 2018-09-24 11:28:00 66 [in_us] [facility] Weight 2018-09-24 11:28:00 233 [lb_av] [facility] Body Mass Index Calculated 2018-09-24 11:28:00 37.61 kg/m2 [facility] Temperature 2018-09-24 11:28:00 98.6 [degF] Method: Oral [facility] Heart Rate 2018-09-24 11:28:00 84 /min [facility] Systolic (mm Hg) 2018-09-18 19:00:00 Jorge alcantara [place] Diastolic (mm Hg) 2018-09-18 19:[facility] [place] [facility] 2018-09-18 19:00:00 [facility] [place] Respitory Rate 2018-09-18 19:00:00 Tammysherry rutherford [place] BP Systolic 2018-09-17 11:27:00 140 mm[Hg] Location: [place]; Positi on: Sitting [facility] BP Diastolic 2018-09-17 11:27:00 82 mm[Hg] Location: [place]; Positi on: Sitting [facility] Height 2018-09-17 11:27:00 66 [in_us] [facility] Weight 2018-09-17 11:27:00 233.3125 [lb_av] [facility] Body Mass Index Calculated 2018-09-17 11:27:00 37.66 kg/m2 [facility] Temperature 2018-09-17 11:27:00 97.3 [degF] Method: Oral [facility] Heart Rate 2018-09-17 11:27:00 89 /min [facility] BP Systolic 2018-09-10 11:41:00 133 mm[Hg] Location: [place] Positi on: Sitting [facility] BP Diastolic 2018-09-10 11:41:00 78 mm[Hg] Location: [place] Positi on: Sitting [facility] Height 2018-09-10 11:41:00 66 [in_us] [facility] Weight 2018-09-10 11:41:00 237 [lb_av] [facility] Body Mass Index Calculated 2018-09-10 11:41:00 38.25 kg/m2 [facility] Temperature 2018-09-10 11:41:00 97.9 [degF] Method: Oral [facility] Heart Rate 2018-09-10 11:41:00 81 /min [facility] Temperature Oral (F) 2018-09-06 17:47:00 97.6 F [facility] Heart Rate 2018-09-06 17:47:00 [facility] [place] Respitory Rate 2018-09-06 17:47:00 Memori [facility] [place] Systolic (mm Hg) 2018-09-06 17:47:00 Jorge rial [place] Diastolic (mm Hg) 2018-09-06 17:47:00 [facility] [place] Respitory Rate 2018-09-06 13:58:00 [facility]ori [facility] [place] Temperature Oral (F) 2018-09-06 13:58:00 97.8 F [facility] Heart Rate 2018-09-06 13:58:00 [facility] Systolic (mm Hg) 2018-09-06 13:58:00 Jorge rial [place] Diastolic (mm Hg) 2018-09-06 13:58:00 Mem [facility] [place] Temperature Oral (F) 2018-09-06 10:00:00 98.6 F [facility] [place] Heart Rate 2018-09-06 10:00:00 [facility] [place] Systolic (mm Hg) 2018-09-06 10:00:00 Jorge rial [place] Diastolic (mm Hg) 2018-09-06 10:00:00 Mem [facility] [place] Height 2018-09-04 20:12:00 162.56 cm [facility] Weight 2018-09-04 20:12:00 [facility] BMI Calculated 2018-09-04 20:12:00 [facility] [place] BP Systolic 2018-08-30 00:00:00 124 mm[Hg] Location: [place]; Positi on: Sitting [facility] BP Diastolic 2018-08-30 00:00:00 76 mm[Hg] Location: [place]; Positi on: Sitting [facility] Height 2018-08-30 00:00:00 66 [in_us] [facility] Weight 2018-08-30 00:00:00 230 [lb_av] [facility] Body Mass Index Calculated 2018-08-30 00:00:00 37.12 kg/m2 [facility] Temperature 2018-08-30 00:00:00 98 [degF] Method: Oral [facility] Heart Rate 2018-08-30 00:00:00 88 /min [facility] BP Systolic 2018-08-16 00:00:00 123 mm[Hg] Location: [place]; Positi on: Sitting [facility] BP Diastolic 2018-08-16 00:00:00 72 mm[Hg] Location: [place]; Positi on: Sitting [facility] Height 2018-08-16 00:00:00 66 [in_us] [facility] Weight 2018-08-16 00:00:00 230.3125 [lb_av] [facility] Body Mass Index Calculated 2018-08-16 00:00:00 37.17 kg/m2 [facility] Temperature 2018-08-16 00:00:00 97.6 [degF] Method: Oral [facility] Heart Rate 2018-08-16 00:00:00 84 /min [facility] BP Systolic 2018-07-30 12:35:00 120 mm[Hg] Location: [place]; Positi on: Sitting [facility] BP Diastolic 2018-07-30 12:35:00 70 mm[Hg] Location: [place]; Positi on: Sitting [facility] Height 2018-07-30 12:35:00 66 [in_us] [facility] Weight 2018-07-30 12:35:00 222.3125 [lb_av] [facility] Body Mass Index Calculated 2018-07-30 12:35:00 35.88 kg/m2 [facility] Temperature 2018-07-30 12:35:00 98.5 [degF] Method: Oral [facility] [place] [facility] Heart Rate 2018-07-30 12:35:00 93 /min [facility] Respitory Rate 2018-07-26 21:54:00 Memori [facility] [place] Systolic (mm Hg) 2018-07-26 21:54:00 Jorge rial [place] Diastolic (mm Hg) 2018-07-26 21:54:00 Mem [facility] [place] Heart Rate 2018-07-26 21:54:00 [facility] [place] Temperature Oral (F) 2018-07-26 21:54:00 97.9 F [facility] Systolic (mm Hg) 2018-07-26 13:19:00 Jorge rial [place] Diastolic (mm Hg) 2018-07-26 13:19:00 [facility] [place] Respitory Rate 2018-07-26 13:19:00 [facility] [place] Heart Rate 2018-07-26 13:19:00 [facility] [place] Temperature Oral (F) 2018-07-26 13:19:00 99.1 F [facility] Heart Rate 2018-07-26 10:39:00 [facility] [place] Temperature Oral (F) 2018-07-26 10:39:00 97.9 F [facility] Systolic (mm Hg) 2018-07-26 10:39:00 Jorge rial [place] Diastolic (mm Hg) 2018-07-26 10:39:00 Mem [facility] [place] Respitory Rate 2018-07-26 10:39:00 Marc al [place] BMI Calculated 2018-07-25 17:15:00 Marc al [place] Weight 2018-07-25 17:15:00 [facility] [place] Height 2018-07-24 15:32:00 [facility] 2018-07-16 12:39:00 130 mm[Hg] Location: [place] Waller on: Sitting [facility] BP Diastolic 2018-07-16 12:39:00 78 mm[Hg] Location: [place] Waller on: Sitting [facility] Height 2018-07-16 12:39:00 66 [in_us] [facility] Weight 2018-07-16 12:39:00 225.3125 [lb_av] [facility] Body Mass Index Calculated 2018-07-16 12:39:00 36.37 kg/m2 [facility] Temperature 2018-07-16 12:39:00 97.4 [degF] Method: Oral [facility] Heart Rate 2018-07-16 12:39:00 73 /min [facility] BP Systolic 2018-05-31 13:33:00 133 mm[Hg] Location: [place]; Positi on: Sitting [facility] BP Diastolic 2018-05-31 13:33:00 82 mm[Hg] Location: [place]; Positi on: Sitting [facility] Height 2018-05-31 13:33:00 66 [in_us] [facility] Weight 2018-05-31 13:33:00 216.3125 [lb_av] [facility] Body Mass Index Calculated 2018-05-31 13:33:00 34.91 kg/m2 [facility] Temperature 2018-05-31 13:33:00 97.5 [degF] Method: Oral [facility] Heart Rate 2018-05-31 13:33:00 85 /min [facility] BP Systolic 2018-05-03 14:31:00 118 mm[Hg] Location: [place]; Positi on: Sitting [facility] BP Diastolic 2018-05-03 14:31:00 77 mm[Hg] Location: [place]; Positi on: Sitting [facility] Height 2018-05-03 14:31:00 66 [in_us] [facility] Weight 2018-05-03 14:31:00 213.3125 [lb_av] [facility] Body Mass Index Calculated 2018-05-03 14:31:00 34.43 kg/m2 [facility] Temperature 2018-05-03 14:31:00 97.7 [degF] Method: Oral [facility] Heart Rate 2018-05-03 14:31:00 100 /min [facility] BP Systolic 2018-04-26 11:29:00 133 mm[Hg] Location: [place]; Positi on: Sitting [facility] BP Diastolic 2018-04-26 11:29:00 86 mm[Hg] Location: [place]; [place] on: Sitting [facility] Height 2018-04-26 11:29:00 66 [in_us] [facility] Weight 2018-04-26 11:29:00 212 [lb_av] [facility] Body Mass Index Calculated 2018-04-26 11:29:00 34.22 kg/m2 [facility] Temperature 2018-04-26 11:29:00 97.9 [degF] Method: Oral [facility] Heart Rate 2018-04-26 11:29:00 93 /min [facility] Systolic (mm Hg) 2018-04-10 16:14:00 Jorge rial [place] Diastolic (mm Hg) 2018-04-10 16:14:00 Mem [facility] [place] Temperature Oral (F) 2018-04-10 16:14:00 98.2 F [facility] [place] Heart Rate 2018-04-10 16:14:00 [facility] [place] Respitory Rate 2018-04-10 16:14:00 Memori [facility] [place] Temperature Oral (F) 2018-04-10 12:20:00 98.2 F [facility] [place] Respitory Rate 2018-04-10 12:20:00 [facility] [place] Systolic (mm Hg) 2018-04-10 12:20:00 Jorge rial [place] Diastolic (mm Hg) 2018-04-10 12:20:00 [facility] [place] Heart Rate 2018-04-10 12:20:00 [facility] [place] Systolic (mm Hg) 2018-04-10 08:53:00 Jorge rial [place] Diastolic (mm Hg) 2018-04-10 08:53:00 [facility] [place] Respitory Rate 2018-04-10 08:53:00 [facility] [place] Heart Rate 2018-04-10 08:53:00 [facility] Temperature Oral (F) 2018-04-10 08:53:00 97.9 F [facility] BMI Calculated 2018-04-05 02:52:00 [facility] [place] Height 2018-04-05 02:52:00 167.64 cm [facility] Weight 2018-04-05 02:52:00 [facility] [place] Height 2018-04-04 16:28:00 167.64 cm [facility] BMI Calculated 2018-04-04 16:28:00 [facility] [place] Weight 2018-04-04 16:28:00 [facility] [place] Heart Rate 2017-08-30 18:34:00 [facility] Temperature Oral (F) 2017-08-30 18:34:00 97.6 F [facility] Weight 2017-08-30 18:34:00 [facility] BMI Calculated 2017-08-30 18:34:00 [facility] [place] Height 2017-08-30 18:34:00 167.64 cm [facility] [place] Systolic (mm Hg) 2017-08-30 18:34:00 Jorge rial [place] Diastolic (mm Hg) 2017-08-30 18:34:00 [facility] [place] Respitory Rate 2017-08-14 20:00:00 [facility] [place] Systolic (mm Hg) 2017-08-14 20:00:00 Jorge rial [place] Diastolic (mm Hg) 2017-08-14 20:00:00 [facility] [place] Respitory Rate 2017-08-14 19:00:00 [facility] [place] Systolic (mm Hg) 2017-08-14 19:00:00 Jorge rial [place] Diastolic (mm Hg) 2017-08-14 19:00:00 [facility] [place] Systolic (mm Hg) 2017-08-14 18:00:00 Jorge rial [place] Diastolic (mm Hg) 2017-08-14 18:00:00 [facility] [place] Respitory Rate 2017-08-14 18:00:00 [facility] [place] Temperature Oral (F) 2017-08-14 15:36:00 98.3 F [facility] BMI Calculated 2017-08-14 00:33:00 [facility] [place] Weight 2017-08-14 00:33:00 [facility] [place] Height 2017-08-14 00:33:00 167.64 cm [facility] [place] Temperature Oral (F) 2017-08-13 20:00:00 97.6 F [facility] Temperature Oral (F) 2017-08-13 13:15:00 98.4 F [facility] Heart Rate 2017-08-13 11:03:00 [facility] Weight 2017-02-16 20:02:00 [facility] [place] BMI Calculated 2017-02-16 20:02:00 [facility] [place] Height 2017-02-16 20:02:00 167.64 cm [facility] Respitory Rate 2017-02-08 16:45:00 [facility] [place] Systolic (mm Hg) 2017-02-08 16:45:00 Jorge rial [place] Diastolic (mm Hg) 2017-02-08 16:45:00 [facility] [place] Respitory Rate 2017-02-08 16:30:00 [facility] [place] Systolic (mm Hg) 2017-02-08 16:30:00 Jorge rial [place] Diastolic (mm Hg) 2017-02-08 16:30:00 [facility] [place] Systolic (mm Hg) 2017-02-08 16:15:00 Jorge rial [place] Diastolic (mm Hg) 2017-02-08 16:15:00 [facility] [place] Respitory Rate 2017-02-08 16:15:00 [facility] [place] Weight 2017-02-08 12:08:00 [facility] [place] BMI Calculated 2017-02-08 12:08:00 [facility] [place] Height 2017-02-08 12:08:00 167.64 cm [facility] Systolic (mm Hg) 2016-10-09 23:20:00 Jorge rial [place] Diastolic (mm Hg) 2016-10-09 23:20:00 [facility] [place] Respitory Rate 2016-10-09 23:20:00 [facility] [place] Heart Rate 2016-10-09 23:20:00 [facility] [place] Temperature Oral (F) 2016-10-09 23:20:00 98.0 F [facility] [place] Temperature Oral (F) 2016-10-09 17:41:00 97.6 F [facility] Respitory Rate 2016-10-09 17:41:00 [facility] [place] Systolic (mm Hg) 2016-10-09 17:41:00 Jorge rial [place] Diastolic (mm Hg) 2016-10-09 17:41:00 [facility] [place] Heart Rate 2016-10-09 17:41:00 [facility] Heart Rate 2016-10-09 13:27:00 [facility] Temperature Oral (F) 2016-10-09 13:27:00 98.0 F [facility] [place] Systolic (mm Hg) 2016-10-09 13:27:00 Jorge rial [place] Diastolic (mm Hg) 2016-10-09 13:27:00 [facility] [place] Respitory Rate 2016-10-09 13:27:00 [facility] [place] Height 2016-10-06 00:12:00 167.64 cm [facility] [place] BMI Calculated 2016-10-06 00:12:00 [facility] [place] Weight 2016-10-06 00:12:00 [facility] Weight 2016-10-05 13:18:00 [facility] [place] BMI Calculated 2016-10-05 13:18:00 [facility] [place] Height 2016-10-05 13:18:00 167.64 cm [facility] Height 2016-09-27 21:42:00 167.64 cm [facility] [place] Weight 2016-09-27 21:42:00 [facility] BMI Calculated 2016-09-27 21:42:00 [facility] [place] Temperature Oral (F) 2016-09-12 18:04:00 98.5 F [facility] [place] Systolic (mm Hg) 2016-09-12 18:04:00 Jorge rial [place] Diastolic (mm Hg) 2016-09-12 18:04:00 [facility] [place] Respitory Rate 2016-09-12 18:04:00 [facility] [place] Heart Rate 2016-09-12 18:04:00 [facility] Respitory Rate 2016-09-12 14:10:00 [facility] [place] Heart Rate 2016-09-12 14:10:00 [facility] [place] Temperature Oral (F) 2016-09-12 14:10:00 98.4 F [facility] [place] Systolic (mm Hg) 2016-09-12 14:10:00 Jorge rial [place] Diastolic (mm Hg) 2016-09-12 14:10:00 [facility] [place] Temperature Oral (F) 2016-09-12 10:51:00 97.9 F [facility] [place] Heart Rate 2016-09-12 10:51:00 [facility] Respitory Rate 2016-09-12 10:51:00 [facility] [place] Systolic (mm Hg) 2016-09-12 10:51:00 Jorge rial [place] Diastolic (mm Hg) 2016-09-12 10:51:00 [facility] [place] BMI Calculated 2016-09-07 16:24:00 [facility] [place] Height 2016-09-07 16:24:00 167.64 cm [facility] Weight 2016-09-07 16:24:00 [facility] Procedures Procedure Date / Time Performed Performing Clinician [facility] e Operation<sup>1</sup> 2018-09-13 00:00:00 Mem[facility] [place] Operation<sup>2</sup> 2018-07-13 00:00:00 Marc Ayala Magnetic resonance imaging of thoracic spine without c ontrast 2018-06-03 00:00:00 TANMAY DIAZ [facility] Patients [facility] Image-guided fluid collection drainage b y catheter (eg, abscess, hematoma, seroma, lymphocele, cyst); peritoneal or retroperitoneal, percutaneous 2018-04-05 20:12:00 [facility] Hernia repair 2016-10-05 06:00:00 [facility] Her swenson Cataract surgery 2013-11-14 [facility] 2012-11-14 05:00:00 Eliseo Sprague Bariatric operative procedure 2002-10-13 06:00:00 [facility] Procedure<sup>3</sup> Marc Ayala History of Laparoscopic adjustable gastric banding [facility] History of Ventral hernia repair [facility] Colostomy [facility] Plan of Care Planned Activity Planned Date Details Comments Source Future Scheduled Test 2020-03-13 00:00:00 INFLUENZA VACCINE [code = INFLUENZA VACCINE] [facility] Scheduled Test 2010 00:00:00 65+ PNEUMOCOCCAL V ACCINE (1 of 2 - PCV13) [code = 65+ PNEUMOCOCCAL VACCINE (1 of 2 - PCV13)] [facility] Scheduled Test 1995 00:00:00 COLONOSCOPY SCREEN ING [code = COLONOSCOPY SCREENING] [facility] Scheduled Test 1995 00:00:00 SHINGLES VACCINES (#1) [code = SHINGLES VACCINES (#1)] [facility] Encounters Start Date/Time End Date/Time Encounter Type Admission Type [facility] Care Department Encounter ID Source 2019-10-01 08:50:00 2019-10-30 23:59:00 Outpatient Shaun Lowery [facility] [id number] 2019-10-01 08:50:00 2019-10-01 08:50:00 Outpatient [id number] 2019-08-20 11:00:00 2019-09-18 23:59:00 Outpatient Shaun Lowery [facility] [id number] 2019-09-16 12:30:00 2019-09-16 12:30:00 Appointment; NIGEL OLGUIN M.D. WILSON, TODD, M.D. [facility] [id number] [facility] 2019-07-23 10:55:00 2019-08-12 20:00:00 Outpatient Shaun Lowery [facility] [id number] 2019-07-23 10:55:00 2019-07-23 10:55:00 Outpatient [id number] 2019-07-15 12:30:00 2019-07-15 12:30:00 Appointment; NIGEL OLGUIN M.D. WILSON, TODD, M.D. [facility] [place] ([facility]) [id number] [facility] 2019-06-11 09:00:00 2019-07-10 23:59:00 Outpatient Shaun Lowery [facility] [id number] 2019-06-24 14:30:00 2019-06-24 14:30:00 Appointment; NIGEL OLGUIN M.D. WILSON, TODD, M.D. [facility] [place] ([facility]) [id number] [facility] 2019-06-11 09:00:00 2019-06-11 09:00:00 Outpatient [id number] [facility] 2019-06-04 11:37:00 2019-06-05 12:58:00 Outpatient Nigel Olguin [facility] [id number] 2019-06-04 11:37:00 2019-06-02 18:52:00 [id number] 2019-06-02 13:00:00 2019-06-02 13:00:00 Appointment; NIGEL OLGUIN M.D. WILSON, TODD, M.D. [facility] UTP [id number] [facility] 2019-04-23 10:00:00 2019-05-22 23:59:00 Outpatient Shaun Lowery [facility] [id number] 2019-05-13 09:15:00 2019-05-13 09:15:00 Appointment; NIGEL OLGUIN M.D. WILSON, TODD, M.D. [facility] [place] ([facility]) [id number] [facility] 2019-04-23 10:00:00 2019-04-23 10:00:00 Outpatient [id number] [facility] 2019-02-12 14:00:00 2019-03-13 23:59:00 Outpatient Shaun Lowery [facility] [id number] 2019-02-12 14:00:00 2019-02-12 14:00:00 Outpatient [id number] [facility] 2019-01-01 13:00:00 2019-01-30 23:59:00 Outpatient Shaun Lowery [facility] [id number] 2019-01-03 11:00:00 2019-01-03 11:00:00 Appointment; NIGEL OLGUIN M.D. WILSON, TODD, M.D. [facility] [place] ([facility]) [id number] [facility] 2019-01-01 13:00:00 2019-01-01 13:00:00 Outpatient [id number] [facility] 2018-12-03 11:30:00 2018-12-03 11:30:00 Appointment; NIGEL OLGUIN M.D. WILSON, TODD, M.D. [facility] [id number] [facility] 2018-11-29 11:00:00 2018-11-29 11:00:00 Appointment; NIGEL OLGUIN M.D. WILSON, TODD, M.D. [facility] [id number] [facility] 2018-11-20 08:00:00 2018-11-20 08:00:00 Appointment; RIVAS MINOR M.D. WAINWRIGHT, DAVID, M.D. [facility] Plastic Surgery [id number] [facility] 2018-11-12 11:30:00 2018-11-12 11:30:00 Appointment; NIGEL OLGUIN M.D. WILSON, TODD, M.D. U[facility] [id number] [facility] 2018-10-29 11:30:00 2018-10-29 11:30:00 Appointment; NIGEL OLGUIN M.D. WILSON, TODD, M.D. U[facility] [id number] [facility] 2018-10-15 11:30:00 2018-10-15 11:30:00 Appointment; NIGEL OLGUIN M.D. WILSON, TODD, M.D. [facility] [id number] [facility] [place] [facility] 2018-10-06 21:04:00 2018-10-10 17:22:00 Outpatient Jaswinder Lowe [facility] [id number] 2018-10-04 04:16:00 2018-10-04 07:06:00 Departed Emergency Room [address] [id number] [facility] 2018-09-30 11:00:00 2018-09-30 11:00:00 Appointment; NIGEL OLGUIN M.D. WILSON, TODD, M.D. [facility] [id number] [facility] 2018-09-24 11:30:00 2018-09-24 11:30:00 Appointment; NIGEL OLGUIN M.D. WILSON, TODD, M.D. [facility] [id number] [facility] [place] [facility] 2018-09-18 12:00:00 2018-09-18 23:59:59 Outpatient Nick Rubio [place] [id number] 2018-09-17 11:30:00 2018-09-17 11:30:00 Appointment; NIGEL OLGUIN M.D. WILSON, TODD, M.D. [facility] [id number] [facility] [place] [facility] 2018-09-10 11:30:00 2018-09-10 11:30:00 Appointment; NIGEL OLGUIN M.D. WILSON, TODD, M.D. [facility] [id number] [facility] [place] [facility] 2018-09-04 13:59:00 2018-09-06 16:28:00 Outpatient Rojas Acharya doris Ali [facility] [id number] 2018-09-04 13:59:00 2018-09-06 16:28:00 Outpatient Rojas Acharya doris Ali [facility] [id number] 2018-08-07 13:00:00 2018-09-05 23:59:00 Outpatient Rojas Acharya lexiha Ali [facility] [id number] 2018-08-07 13:00:00 2018-09-05 23:59:00 Outpatient Rojas Acharya Ali [facility] [id number] 2018-08-30 10:30:00 2018-08-30 10:30:00 Appointment; NIGEL OLGUIN M.D. WILSON, TODD, M.D. [facility] [id number] [facility] 2018-08-16 12:00:00 2018-08-16 12:00:00 Appointment; NIGEL OLGUIN M.D. WILSON, TODD, M.D. [facility] [id number] [facility] 2018-07-30 11:30:00 2018-07-30 11:30:00 Appointment; NIGEL OLGUIN M.D. WILSON, TODD, M.D. [facility] [id number] [facility] 2018-07-25 15:17:00 2018-07-26 18:24:00 Outpatient Nigel Olguin [facility] [id number] 2018-07-25 11:00:00 2018-07-25 11:00:00 Appointment; NIGEL OLGUIN M.D. WILSON, TODD, M.D. [facility] [id number] [facility] 2018-06-17 10:00:00 2018-07-16 23:59:00 Outpatient Rojas Acharya Ali [facility] [id number] 2018-07-16 15:00:00 2018-07-16 15:00:00 Appointment; NIGEL OLGUIN M.D. WILSON, TODD, M.D. [facility] [id number] [facility] 2018-06-28 11:45:00 2018-06-28 23:59:00 Outpatient Rojas Acharya Ali [facility] [id number] 2018-06-03 15:09:00 2018-06-03 15:09:00 Registered Clinic [address] [facility] [id number] [facility] 2018-05-31 07:45:00 2018-05-31 07:45:00 Appointment; NIGEL OLGUIN M.D. WILSON, TODD, M.D. U[facility] [id number] [facility] 2018-05-21 15:59:00 2018-05-21 15:59:00 Registered Clinic [address] [facility] [id number] [facility] 2018-05-03 11:00:00 2018-05-03 11:00:00 Appointment; NIGEL OLGUIN M.D. WILSON, TODD, M.D. [facility] [id number] [facility] 2018-04-26 11:15:00 2018-04-26 11:15:00 Appointment; NIGEL OLGUIN M.D. WILSON, TODD, M.D. U[facility] [id number] [facility] 2018-04-04 11:22:00 2018-04-10 16:45:00 Outpatient Pacheco Olguin [facility] [id number] 2018-02-18 14:00:00 2018-03-19 23:59:00 Outpatient Bashir Mijares [id number] 2018-02-26 12:00:00 2018-02-26 12:00:00 Appointment; GERONIMO MCCABE APRN KLEIN, CONNIE, APRN UTP UTP [id number] [facility] 2017-09-04 14:00:00 2017-09-04 14:00:00 Appointment; GERONIMO MCCABE NP KLEIN, CONNIE, NP UTP UTP [id number] [facility] 2017-08-30 11:15:00 2017-08-30 23:59:59 Outpatient Nisa Zamora [facility] [id number] 2017-08-29 10:07:00 2017-08-30 23:59:59 Outpatient TANIA GAVIN [facility] [id number] 2017-08-30 12:37:00 2017-08-30 23:59:00 Outpatient Brad Sheth MHHOIP MHHOIP [id number] 2017-08-15 09:50:00 2017-08-16 23:59:59 Outpatient MHMIS LESLYE [facility] [id number] 2017-08-13 05:01:00 2017-08-14 14:45:00 Outpatient Nisa Miller [facility] [id number] 2017-08-02 14:25:00 2017-08-03 23:59:59 Outpatient MHMIS LESLYE [facility] [id number] 2017-07-30 16:29:00 2017-07-31 23:59:59 Outpatient MHMIS LESLYE [facility] [id number] 2017-07-17 14:00:00 2017-07-17 14:00:00 Appointment; NIGEL OLGUIN M.D. WILSON, TODD, M.D. [facility] UTP [id number] [facility] 2017-07-11 13:00:00 2017-07-11 13:00:00 Appointment; GERONIMO MCCABE NP KLEIN, CONNIE, NP UTP UTP [id number] [facility] 2017-05-15 13:00:00 2017-05-15 13:00:00 Appointment; NIGEL OLGUIN M.D. WILSON, TODD, M.D. UTP UTP [id number] [facility] 2017-03-13 14:00:00 2017-03-13 14:00:00 Appointment; NIGEL OLGUIN M.D. WILSON, TODD, M.D. [facility] UTP [id number] [facility] 2017-02-27 13:00:00 2017-02-27 13:00:00 Appointment; NIGEL OLGUIN M.D. WILSON, TODD, M.D. [facility] UTP [id number] [facility] 2017-02-20 10:00:00 2017-02-20 10:00:00 Appointment; NIGEL OLGUIN M.D. WILSON, TODD, M.D. [facility] UTP [id number] [facility] 2017-02-16 11:58:00 2017-02-16 15:00:00 Outpatient Pacheco Olguin [facility] [id number] 2017-02-08 07:15:00 2017-02-08 12:10:00 Outpatient Pacheco Olguin [facility] [id number] 2017-02-06 12:30:00 2017-02-06 12:30:00 Appointment; NIGEL OLGUIN M.D. WILSON, TODD, M.D. [facility] UTP [id number] [facility] 2017-01-17 09:48:00 2017-01-17 23:59:00 Outpatient Tracy Arce [facility] [id number] 2017-01-16 14:00:00 2017-01-16 14:00:00 Appointment; GERONIMO MCCABE NP KLEIN, CONNIE, NP UTP UTP [id number] [facility] 2016-12-19 13:30:00 2016-12-19 13:30:00 Appointment; GERONIMO MCCABE NP KLEIN, CONNIE, NP UTP UTP [id number] [facility] 2016-12-01 11:00:00 2016-12-01 11:00:00 Appointment; NIGEL OLGUIN M.D. WILSON, TODD, M.D. [facility] UTP [id number] [facility] 2016-10-25 10:15:00 2016-10-25 10:15:00 Appointment; ALLISON KENDALL M.D. HAMILTON, CARLOS, M.D. [facility] UTP [id number] [facility] 2016-10-20 10:30:00 2016-10-20 10:30:00 Appointment; NIGEL OLGUIN M.D. WILSON, TODD, M.D. [facility] UTP [id number] [facility] 2016-10-05 15:03:00 2016-10-09 17:48:00 Outpatient Pacheco Olguin [facility] [id number] 2016-09-19 13:00:00 2016-09-19 13:00:00 Appointment; NIGEL OLGUIN M.D. WILSON, TODD, M.D. UTP UTP [id number] [facility] 2016-09-07 07:58:00 2016-09-12 14:14:00 Outpatient Nickie Parnell [facility] [id number] 2016-09-04 09:00:00 2016-09-04 09:00:00 Appointment; ALLISON KENDALL M.D. HAMILTON, CARLOS, M.D. [facility] UTP [id number] [facility] 2016-08-29 14:30:00 2016-08-29 14:30:00 Appointment; GERONIMO MCCABE NP KLEIN, CONNIE, NP UTP UTP [id number] [facility] 2016-03-21 14:00:00 2016-03-21 14:00:00 Appointment; GERONIMO MCCABE NP KLEIN, CONNIE, NP UTP UTP [id number] [facility] Results Test Description Test Time Test Comments Results Result Comments Source CHEST 2 VIEWS 2020-01-15 13:38:00 [place] [address] Patient Name: SIMON ORDAZ MR #: [id number] : 1945 Age/Sex: 74/M Req #: [id number] Adm Physician: Ordered by: BASHIR CADET MD Report #: [id number] Location: OR Room/Bed: Procedure: [id number] DX/CHEST 2 VIEWS Exam Date: Exam Time: REPORT STATUS: Signed EXAM: CHEST 2 VIEWS DATE: 01/15/2020 1:20 PM INDICATION: Preoperative evaluation COMPARISON: 09/11/2019 FINDINGS: The trachea is midline. There are unchanged right basilar opacity suggestive of atelectasis/scarring. There is no evidence for new large focal consolidation, pneumothorax, or significant pleural effusion. The cardiomediastinal silhouette is stable in appearance. Degenerative changes noted of the visualized spine. No acute osseous abnormality is identified. IMPRESSION: No acute cardiopulmonary process or significant interval change identified from 09/11/2019. Signed by: Dr. 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 LUNGS: Lungs are well inflated. Lungs are clear. There is no evidence of pneumonia or pulmonary edema. PLEURA: Small right pleural effusion with right basilar opacity, likely atelectasis.. No left pleural effusion. HEART AND MEDIASTINUM: The cardiomediastinal silhouette is unremarkable. BONES AND SOFT TISSUES: No acute osseous lesion. Soft tissues are unremarkable. UPPER ABDOMEN: No free air under the diaphragm. IMPRESSION: Small right pleural effusion with right basilar atelectasis. No acute displaced rib fracture. Signed by: Evangelista Michelle MD on 09/11/2019 3:10 PM Dictated By: EVANGELISTA MICHELLE MD 1510 Transcribed By: JONI on 09/11/19 1510 COPY TO: TANMAY DIAZ MD RIBS UNILAT W/CXR 2019-09-11 15:07:00 [facility] [place] [address] Patient Name: SIMON ORDAZ MR #: [id number] : 1945 Age/Sex: 74/M Req #: [id number] [facility] Physician: Ordered by: TANMAY DIAZ MD Report #: [id number] Location: [facility] Room/Bed: Procedure: [id number] DX/RIBS UNILAT W/CXR Exam Date: 09/11/19 Exam Time: 1432 REPORT STATUS: Signed EXAMINATION: CHEST 2 VIEWS, RIBS UNILAT W/CXR INDICATION: [id number] 1432 CHONDROCOSTAL JUNCTION SYNDROME COMPARISON: None FINDINGS: PA and lateral views TUBES and LINES: None. LUNGS: Lungs are well inflated. Lungs are clear. There is no evidence of pneumonia or pulmonary edema. PLEURA: Small right pleural effusion with right basilar opacity, likely atelectasis.. No left pleural effusion. HEART AND MEDIASTINUM: The cardiomediastinal silhouette is unremarkable. BONES AND SOFT TISSUES: No acute osseous lesion. Soft tissues are unremarkable. UPPER ABDOMEN: No free air under the diaphragm. IMPRESSION: Small right pleural effusion with right basilar atelectasis. No acute displaced rib fracture. Signed by: Evangelista Michelle MD on 09/11/2019 3:10 PM Dictated By: EVANGELISTA MICHELLE MD 09 Transcribed By: JONI on 09/11/191509 COPY TO: TANMAY DIAZ MD CHEM PANEL 2019-06-05 09:26:00 112 [facility] [place] CHEM PANEL 2019-06-05 09:26:00 21 Mem[facility] CHEM PANEL 2019-06-05 09:26:00 1.38 [facility] [place] CHEM PANEL 2019-06-05 09:26:00 139 [facility] [place] CHEM PANEL 2019-06-05 09:26:00 4.6 [facility] [place] CHEM PANEL 2019-06-05 09:26:00 106 [facility] [place] CHEM PANEL 2019-06-05 09:26:00 26 [facility] [place] CHEM PANEL 2019-06-05 09:26:00 11.6 [facility] [place] CHEM PANEL 2019-06-05 09:26:00 9.4 [facility] [place] CHEM PANEL 2019-06-05 09:26:00 50 [facility] [place] HEMATOLOGY 2019-06-05 09:26:00 76.0 [facility] [place] HEMATOLOGY 2019-06-05 09:26:00 12.5 [facility] [place] HEMATOLOGY 2019-06-05 09:26:00 6.8 [facility] [place] HEMATOLOGY 2019-06-05 09:26:00 4.3 [facility] [place] HEMAT[facility]Y 2019-06-05 09:26:00 0.4 [facility] [place] HEMAT[facility]Y 2019-06-05 09:26:00 7.3 [facility] [place] HEMATOLOGY 2019-06-05 09:26:00 1.2 [facility] [place] HEMATOLOGY 2019-06-05 09:26:00 0.7 [facility] [place] HEMAT[facility]Y 2019-06-05 09:26:00 0.4 [facility] [place] HEMATOLOGY 2019-06-05 09:26:00 9.6 [facility] [place] HEMATOLOGY 2019-06-05 09:26:00 4.16 [facility] [place] HEMATOLOGY 2019-06-05 09:26:00 12.0 [facility] [place] HEMATOLOGY 2019-06-05 09:26:00 36.3 [facility] [place] HEMATOLOGY 2019-06-05 09:26:00 87.3 [facility] [place] HEMAT[facility] 2019-06-05 09:26:00 Test Item MCH (test code = MCH) 28.9 pg 27.0-31.0 [facility] LmxrtczBWVPWSHMKT5728-08-56 09:26:0033.1[facility] 2019-06-05 09:26:0019.5[facility] LqzzhxgVJUERQSCMQ2873-93-18 09:26:33172Lmqmvwoy VwanjmrBZCQSWGJWC2122-23-10 09:26:008.1[facility]ann[facility] AHELJ8466-97-31 10:01:53194Byyqldoi HermannCHEM ACBOF3937-11-62 10:01:0034[facility] ECAJL6230-02-29 10:01:002.28[facility]ann[facility] OYMJG9407-82-45 10:01:42356 [facility] YPBEW8126-88-46 10:01:004.3[facility]ann[facility] PANEL 2019-06-04 10:01:59779Qjwavbjd HermannCHEM HEZEY6457-80-92 10:01:0027[facility]annCHE[facility] WGTHQ2392-53-74 10:01:0011.3[facility]ann[facility] PZQFN5492-95-34 10:01:008.8[facility]annCHE[facility] JVEDE4276-27-36 10:01:0027[facility] FRLXPMUCQT9813-60-49 10:01:0072.5[facility] YvdowrmEDBOXKFFRO2458-89-91 10:01:00 14.8[facility] WvhhakuSGNEIXFYEW6999-33-09 10:01:007.6[facility]Y 2019-06-04 10:01:004.9[facility] ZyyhrhqXESDPVZPVH2389-68-92 10:01:000.2[facility] CztqnsoKTELUSHAZK9101-60-83 10:01:006.6[facility] OjlizecNQCJRAPXDL9535-31-88 10:01:001.3[facility] PetocgkUSVTTOYFIR2706-71-70 10:01:000.7[facility] CJBGGXEZLU4936-52-44 10:01:000.4[facility] YtpwhrsURUKXDYBLJ4960-97-73 10:01:009.1 [facility] GpqitnvDOQUXVVTVA8282-25-81 10:01:004.09[facility] 2019-06-04 10:01:0012.1[facility] QruljisAIYVETBMSS6887-49-81 10:01:0036.0[facility] WzddcdiJUFUEKDXLJ0039-31-54 10:01:0088.1[facility] BhfbdfuYURGASENLY6414-66-30 10:01:00* Test Item Value Reference Range Interpretation Comments MCH (test code = MCH) 29.6 pg 27.0-31.0 [facility] DwsllspQMUTIVOXSW6311-20-27 10:01:0033.7[facility] 2019-06-04 10:01:0020.2[facility] YczwnixTBQCJQIWJL0592-68-83 10:01:64944Psasmryy BlkjbgoNEIMRPGDQZ1281-40-48 10:01:008.0[facility] AND DIKDI7526-47-00 05:16:00Yellow *NA*(06/04/19 12:16 AM)[facility] UDTGQ8001-36-07 05:16:00Clear (06/04/19 12:16 AM)[facility] YKWOZ0348-89-29 05:16:00* Test Item Value Reference Range Interpretation Comments UA Spec Grav (test code = UA Spec Grav) 1.015 1 [facility] ERNMI5642-54-84 05:16:00* Test Item Value Reference Range Interpretation Comments UA pH (test code = UA pH) 5.0 1 5.0-8.0 [facility] PBZDR5045-70-76 05:16:00Negative *NA*(06/04/19 12:16 AM)[facility] YFJMW6844-16-07 05:16:00Negative (06/04/19 12:16 AM)[facility] BMUJS9336-95-58 05:16:00<1.0[facility] GGAMV9888-32-76 05:16:00Negative (06/04/19 12:16 AM)[facility] TRYWJ0951-99-45 05:16:00Negative (06/04/19 12:16 AM)[facility] HUPAG5504-69-87 05:16:001[facility] PFOUI2472-67-78 05:16:00< 1[facility] COXAQ9758-09-35 05:16:004[facility] HYLRH6300-62-61 05:16:003[facility] KFUB4280-62-28 05:16:009[facility] RUJJ0376-00-86 05:16:62227.00[facility]annCHEM QMIES9978-69-10 13:44:75287Vnilawar HermannCHEM JXERQ7920-57-68 13:44:0031[facility]annCHE[facility] RLXBQ3646-90-49 13:44:003.22[facility]annCHEM WHJKZ2476-98-71 13:44:77467 [facility]annCHE[facility] ZWQHH9685-19-31 13:44:004.6[facility]annCHEM PANEL 2019-06-03 13:44:14934Ttnkxikl HermannCHEM ICXID6854-08-62 13:44:0028[facility] HermannCHEM GSISK8406-34-07 13:44:008.7[facility] HermannCHEM IWBOM3969-90-77 13:44:0018[facility] HermannCHEM IQGII1303-58-61 13:44:009.6[facility] NANHSKWJYU1102-85-19 13:44:0011.2[facility] PpzneirUCSSPKSFQU5885-13-80 13:44:00 4.43[facility] EqqaookZZKFGXWBYS1981-08-95 13:44:0012.7[facility]annHEMATOLOGY 2019-06-03 13:44:0038.3[facility] SsemecwVRLUKYPRFZ9786-16-69 13:44:0086.5[facility] IakvzwsCSTALOREQU2610-08-38 13:44:00* Test Item Value Reference Range Interpretation Comments MCH (test code = MCH) 28.7 pg 27.0-31.0 [facility] ZgkvapjETATZQLXLC7530-98-64 13:44:0033.2[facility]ann[facility]MAT[facility]Y 2019-06-03 13:44:0020.0[facility] MrdexaaLZVHXIKAYS1326-99-25 13:44:56343Vdshhryb UijkdgvIZRVUWQWUM8400-81-52 13:44:007.7[facility] JrybnqaCRVJILTOXM2764-93-06 13:44:0080.5[facility] LtmjcpsXCNWSVUOPF1380-67-91 13:44:008.8[facility] VGBNBSLZCT5269-55-00 13:44:007.8[facility] EbrwakjIDNZTEEOEM8205-85-62 13:44:002.5 Memorial RvldbmmUMJRJDHQLN8496-30-92 13:44:000.4[facility]annHEMATOLOGY 2019-06-03 13:44:009.0[facility] UtfyjzrKHWCABHZGV9548-24-79 13:44:001.0[facility] IyxordrKROJXZWCLM2362-84-96 13:44:000.9[facility] IjpzoytKHJBGPCLPG5276-02-80 13:44:000.3[facility] ElkokciMWMLXQHMXJ8580-96-94 13:44:001+ *ABN*(06/03/19 8:44 AM)[facility] HJTJJNJ1701-50-22 17:35:00Negative (06/02/19 12:35 PM)[facility] ZBPAE4576-72-90 11:08:00* Test Item Value Reference Range Interpretation Comments TRIGLYCERIDES (BEAKER) (test code = 540) 72 mg/dL CHOLESTEROL (BEAKER) (test code = 631) 225 mg/dL HDL CHOLESTEROL (BEAKER) (test code = 976) 61 mg/dL LDL CHOLESTEROL CALCULATED (BEAKER) (test code = 633) 150 mg/dL Triglyceride Reference Range: Low Risk <150 Borderline 150-199 High Risk 200-499 Very High Risk >=500Cholesterol Reference Range: Low Risk <200 Borderline 200-239 High Risk >240HDL Cholesterol Reference Range: Low Risk >=60 High Risk <40LDL Cholesterol Reference Range: Optimal <100 Near Optimal 100-129 Borderline 130-159 High 160-189 Very High >=190 BASIC METABOLIC [id number] 11:08:00* Test Item Value Reference Range Interpretation Comments SODIUM (BEAKER) (test code = 381) 139 meq/L 136-145 POTASSIUM (BEAKER) (test code = 379) 4.8 meq/L 3.5-5.1 CHLORIDE (BEAKER) (test code = 382) 104 meq/L 98-107 CO2 (BEAKER) (test code = 355) 23 meq/L 22-29 BLOOD UREA NITROGEN (BEAKER) (test code = 354) 50 mg/dL 7-21 H CREATININE (BEAKER) (test code = 358) 1.76 mg/dL 0.57-1.25 H GLUCOSE RANDOM (BEAKER) (test code = 652) 142 mg/dL 70-105 H CALCIUM (BEAKER) (test code = 697) 10.4 mg/dL 8.4-10.2 H EGFR (BEAKER) (test code = 1092) 38 mL/min/1.73 sq m ESTIMATED GFR IS NOT ACCURATE CREATININE CLEARANCE IN PREDICTING GLOMERULAR FILTRATION RATE. ESTIMATED GFR IS NOT APPLICABLE FOR DIALYSIS PATIENTS. HEPATIC FUNCTION [id number] 11:08:00* Test Item Value Reference Range Interpretation Comments TOTAL PROTEIN (BEAKER) (test code = 770) 8.2 gm/dL 6.0-8.3 ALBUMIN (BEAKER) (test code = 1145) 4.0 g/dL 3.5-5.0 BILIRUBIN TOTAL (BEAKER) (test code = 377) 0.2 mg/dL 0.2-1.2 BILIRUBIN DIRECT (BEAKER) (test code = 706) 0.2 mg/dL 0.1-0.5 ALKALINE PHOSPHATASE (BEAKER) (test code = 346) 88 U/L 40-150 AST (SGOT) (BEAKER) (test code = 353) 25 U/L 5-34 ALT (SGPT) (BEAKER) (test code = 347) 11 U/L 6-55 RAD, CHEST, 2 [id number] 11:00:00Reason for Exam:->i48.0FINAL REPORT Chest x-ray, PA and lateral views Clinical History: i48.0 Comparison: December 24, 2017 Findings: The cardiac and mediastinal contours are normal. There is eventration of both hemidiaphragms, as before. There is no pneumothorax, glen pulmonary edema, consolidation or pleural effusion. There is minimal atelectasis at the right lung base. The bony structures demonstrate mild degenerative changes. Impression: No acute process identified. Signed: Rafal Lopes Verified Date/Time: 11/04/2018 11:00:48 Reading Location: [address] Radiology Reading Room W/PLT COUNT & AUTO [id number] 10:53:00* Test Item Value Reference Range Interpretation Comments WHITE BLOOD CELL COUNT (BEAKER) (test code = 775) 12.2 K/ L 3.5- 10.5 H RED BLOOD CELL COUNT (BEAKER) (test code = 761) 5.02 M/ L 4.63-6 .08 HEMOGLOBIN (BEAKER) (test code = 410) 12.1 GM/DL 13.7-17.5 L HEMATOCRIT (BEAKER) (test code = 411) 40.1 % 40.1-51.0 MEAN CORPUSCULAR VOLUME (BEAKER) (test code = 753) 79.9 fL 79. 0-92.2 MEAN CORPUSCULAR HEMOGLOBIN (BEAKER) (test code = 751) 24.1 pg 25.7-32.2 L MEAN CORPUSCULAR HEMOGLOBIN CONC (BEAKER) (test code = 752) 30.2 GM/DL 32.3-36.5 L RED CELL DISTRIBUTION WIDTH (BEAKER) (test code = 412) 17.5 % 11.6-14.4 H PLATELET COUNT (BEAKER) (test code = 756) 248 K/CU MM 150-450 MEAN PLATELET VOLUME (BEAKER) (test code = 754) 9.6 fL 9.4-12 .4 NUCLEATED RED BLOOD CELLS (BEAKER) (test code = 413) 0 /100 WBC 0 -0 NEUTROPHILS RELATIVE PERCENT (BEAKER) (test code = 429) 71 % LYMPHOCYTES RELATIVE PERCENT (BEAKER) (test code = 430) 19 % MONOCYTES RELATIVE PERCENT (BEAKER) (test code = 431) 7 % EOSINOPHILS RELATIVE PERCENT (BEAKER) (test code = 432) 2 % BASOPHILS RELATIVE PERCENT (BEAKER) (test code = 437) 1 % NEUTROPHILS ABSOLUTE COUNT (BEAKER) (test code = 670) 8.59 K/ L 1.78-5.38 H LYMPHOCYTES ABSOLUTE COUNT (BEAKER) (test code = 414) 2.30 K/ L 1.32-3.57 MONOCYTES ABSOLUTE COUNT (BEAKER) (test code = 415) 0.88 K/ L 0. 30-0.82 H EOSINOPHILS ABSOLUTE COUNT (BEAKER) (test code = 416) 0.27 K/ L 0.04-0.54 BASOPHILS ABSOLUTE COUNT (BEAKER) (test code = 417) 0.10 K/ L 0. 01-0.08 H IMMATURE GRANULOCYTES-RELATIVE PERCENT (NIKKI) (test code = 2801) 0 % 0-1 KYLVTAZVYZ4153-51-31 14:15:0012.9[facility]annCHEM QNJQA9425-09-64 00:04:3351 [facility]CHE[facility] GGUOK9897-14-78 00:04:331.37[facility]annCHEM PANEL 2018-10-09 00:04:3325[facility] CjsgnoeJABCABZEGC7503-82-75 21:52:0025.7[facility] XifztjcTUFEQVZEGP4027-58-06 21:52:00* Test Item Value Reference Range Interpretation Comments Michelle Avila TND (test code = Michelle Tr TND) 1600 1 [facility] ZGNRO1365-72-72 05:48:00Yellow *NA*(10/06/18 11:48 PM) [facility] ICJAV8183-34-81 05:48:00Slight *ABN*(10/06/18 11:48 PM) [facility] SJGBJ8659-92-21 05:48:00Negative *NA*(10/06/18 11:48 PM)[facility] PHVPC3310-30-02 05:48:00Negative *NA*(10/06/18 11:48 PM)[facility] FBLYH6269-49-45 05:48:00Negative (10/06/18 11:48 PM) [facility] DZWOH1311-35-30 05:48:00Negative *NA*(10/06/18 11:48 PM)[facility] ELZCU8396-29-79 05:48:00* Test Item Value Reference Range Interpretation Comments UA Spec Grav (test code = UA Spec Grav) 1.020 1 [facility] MKHQW0295-27-16 05:48:00* Test Item Value Reference Range Interpretation Comments UA pH (test code = UA pH) 5.0 1 5.0-8.0 [facility] ZLMDG5607-01-24 05:48:002[facility] MCLMF3737-29-40 05:48:001[facility] ZQDOH1683-72-51 05:48:00 Negative (10/06/18 11:48 PM)[facility] SMIJM1683-63-08 05:48:00 Negative (10/06/18 11:48 PM)[facility]annCARDIAC MJAUKBN3167-25-51 04:27:00< 0.02[facility]annCARDIAC LJTRSBK8533-49-97 04:27:0045[facility]annCHEM CJEUS1463-33-96 04:27:00<0.05[facility]annCHEM WRTGL8968-22-80 04:27:001.2 [facility]CHE[facility] TKDAC5541-97-32 04:27:00* Test Item Value Reference Range Interpretation Comments A/G Ratio (test code = A/G Ratio) 0.7 1 0.7-1.6 [facility]CHE[facility] QQSPE9404-14-48 04:27:006.4[facility]annCHEM PANEL 2018-10-07 04:27:00* Test Item Value Reference Range Interpretation Comments B/C Ratio (test code = B/C Ratio) 16 1 6-25 [facility]CHE[facility] CFQRC6665-42-49 04:27:004.1[facility]annCHEM PANEL 2018-10-07 04:27:000.4[facility]annCHEM NRZWJ1343-78-53 04:27:003.0[facility]annCHEM ZPIFQ7026-48-57 04:27:007.1[facility]annCHEM RHCCF0984-66-17 04:27:0013[facility]annCHEM GORFX4212-50-42 04:27:0023[facility]annCHEM HNPKR7739-74-24 04:27:0076[facility]annCHEM YGHHS4420-64-05 04:27:0029 [facility]annCHE[facility] QYLQT5322-30-88 04:27:57720Qhufhrmu HermannCHEM PANEL 2018-10-07 04:27:008.1[facility]annCHEM MKUAM2337-61-12 04:27:0069[facility]annCHEM HLOJU2208-63-75 04:27:63813Uudfixgd HermannCHEM KWIMQ4469-29-76 04:27:004.4[facility]annCHEM BVFUU5638-03-39 04:27:67911Qxxdsmdf HermannCHEM HGVPO1623-66-62 04:27:001.06[facility]annCHEM SPFPH5391-35-63 04:27:0017 [facility] VzkxyrxFDNAVCJRRG1457-85-89 03:50:001+ *ABN*(10/06/18 9:50 PM)[facility] VqynogoIRBVSWUZNV5564-43-49 03:50:0010.2[facility] JgzevcbHDYXOIBKQZ7387-74-09 03:50:009.9[facility] RmyqjpkWHVXRQAQNX3610-59-25 03:50:009.2[facility] NDAWIBGAKM5367-35-82 03:50:001.3[facility] IrrkrzfQWGTEOBHTM2559-75-51 03:50:001.3 [facility] IwzlpmsGDTPJYSTZT1983-84-40 03:50:0073.2[facility] HermannHEMATOLOGY 2018-10-07 03:50:000.5[facility] DekzsrnWQICNOZKKL2683-13-62 03:50:006.2[facility] HkuaxhiNJRNFBHIIR1408-55-59 03:50:000.8[facility] RhecnxaHDOVSJCBGZ6176-01-50 03:50:000.1[facility] OsvajzlHQPWWKTHVM6200-81-21 03:50:51624Zzzssbdo [place] TVFPPETWQB6865-20-55 03:50:007.5[facility] FgoqoxzCSEMYESIMV6718-85-07 03:50:00* Test Item Value Reference Range Interpretation Comments MCH (test code = MCH) 24.7 pg 27.0-31.0 [facility] TmpptvmCMZSPMLMHT2564-23-16 03:50:0031.8[facility] HermannHEMATOLOGY 2018-10-07 03:50:0033.9[facility] NdibjpcQHSZDDOMFT4705-12-13 03:50:0077.6[facility] TniyynnZLSCSNFVPB3541-91-41 03:50:004.37[facility] GdyqfkqENQTTGWWSJ5669-63-28 03:50:0010.8[facility] IdvvbhnOLOFNFRXOB2132-07-69 03:50:0018.4[facility] ZXPAJTKTVG9686-41-90 03:50:0012.6[facility] TxgnpezNYFHTTPZYS3584-85-85 03:50:00* Test Item Value Reference Range Interpretation Comments INR (test code = INR) 1.68 1 0.85-1.17 [facility]TeiighiFHXWZKWOPY3622-81-69 03:50:00* Test Item Value Reference Range Interpretation Comments PT (test code = PT) 19.4 s 12.0-14.7 [facility]JFNFFS0172[facility]-41 03:50:00* Test Item Value Reference Range Interpretation Comments PTT (test code = PTT) 56.8 s 22.9-35.8 [facility]Influenza Virus Types A,B Ksyntlf2070-86-08 05:45:00* Test Item Value Reference Range Interpretation Comments Influenza Virus Types A,B Antigen (test code = 21733-4) NEGATIVE NEGATIVE [facility] FallsU[facility] JYC8233-26-68 05:41:00* Test Item Value Reference Range Interpretation Comments Urine WBC (test code = 5821-4) NONE 0-5 [facility] FallsUrine MQX6535-17-98 05:41:00* Test Item Value Reference Range Interpretation Comments Urine RBC (test code = 16189-9) 6-10 0-5 H [facility] FallsUrine Nmmipoay7567-41-65 05:41:00* Test Item Value Reference Range Interpretation Comments Urine Bacteria (test code = 00492-9) NONE NONE [facility] FallsUrine Epithelial Uhdix5140-00-57 05:41:00 * Test Item Value Reference Range Interpretation Comments Urine Epithelial Cells (test code = 87816-8) FEW NONE [facility] FallsUrine Quawi3530-74-85 05:36:00* Test Item Value Reference Range Interpretation Comments Urine Color (test code = 5778-6) YELLOW YELLOW [facility] FallsUrine Lcywifv3260-43-78 05:36:00* Test Item Value Reference Range Interpretation Comments Urine Clarity (test code = 91652-1) HAZY CLEAR [facility] FallsUrine Specific Ewyodmm3125-93-16 05:36:00 * Test Item Value Reference Range Interpretation Comments Urine Specific [place] (test code = 5811-5) 1.025 1.010-1.02 5 [facility] FallsUrine vR7081-70-74 05:36:00* Test Item Value Reference Range Interpretation Comments Urine pH (test code = 80745-1) 6 5-7 [facility] FallsUrine Leukocyte Qtlkobsc6113-79-78 05:36:00* Test Item Value Reference Range Interpretation Comments Urine Leukocyte Esterase (test code = 5799-2) NEGATIVE NEGATIVE [facility] FallsUrine Lwdemvg6238-62-74 05:36:00* Test Item Value Reference Range Interpretation Comments Urine Nitrite (test code = 63407-3) NEGATIVE NEGATIVE [facility] FallsUrine Mswrtzj6105-09-62 05:36:00* Test Item Value Reference Range Interpretation Comments Urine Protein (test code = 5804-0) 1+ NEGATIVE H [facility] FallsUrine Glucose (UA)2018-10-04 05:36:00* Test Item Value Reference Range Interpretation Comments Urine Glucose (UA) (test code = 2349-9) NEGATIVE NEGATIVE [facility] FallsUrine Izgfppx8878-30-64 05:36:00* Test Item Value Reference Range Interpretation Comments Urine Ketones (test code = 08572-9) NEGATIVE NEGATIVE [facility] FallsUrine Oygzfcecbfdk4461-36-16 05:36:00* Test Item Value Reference Range Interpretation Comments Urine Urobilinogen (test code = 46730-5) 0.2 0.2-1 [facility] FallsUrine Lvouiarhr3439-13-25 05:36:00* Test Item Value Reference Range Interpretation Comments Urine Bilirubin (test code = 1978-6) NEGATIVE NEGATIVE [facility] FallsUrine Lpqfg4035-29-84 05:36:00* Test Item Value Reference Range Interpretation Comments Urine Blood (test code = 33087-4) TRACE NEGATIVE H [facility] FallsCreatine Kinase BE6222-65-00 05:31:00* Test Item Value Reference Range Interpretation Comments Creatine Kinase MB (test code = 32247-6) 3.00 0-5.0 [facility] FallsTroponin Z0344-19-77 05:31:00* Test Item Value Reference Range Interpretation Comments Troponin I (test code = JND2111) 0.019 0-0.300 [facility] FallsCreatine Dfugma6077-90-87 05:20:00* Test Item Value Reference Range Interpretation Comments Creatine Kinase (test code = 2157-6) 56 30-200 [facility] FallsWhite Blood Glwlf4656-76-46 05:15:00* Test Item Value Reference Range Interpretation Comments White Blood Count (test code = 6690-2) 14.39 4.8-10.8 H [facility] FallsRed Blood Fjbus8928-13-46 05:15:00* Test Item Value Reference Range Interpretation Comments Red Blood Count (test code = 789-8) 4.37 4.3-5.7 [facility] FallsHemoglobin2019-02-22 05:15:00* Test Item Value Reference Range Interpretation Comments Hemoglobin (test code = 31423-9) 10.7 14.0-18.0 L [facility] FallsHematocrit2019-02-22 05:15:00* Test Item Value Reference Range Interpretation Comments Hematocrit (test code = 4544-3) 34.0 38.2-49.6 L [facility] FallsMean Corpuscular Jdcjkm1467-73-59 05:15:00* Test Item Value Reference Range Interpretation Comments Mean Corpuscular Volume (test code = 787-2) 77.8 81-99 L [facility] FallsMean Corpuscular Cvjngwhxpl5424-75-87 05:15:00* Test Item Value Reference Range Interpretation Comments Mean Corpuscular Hemoglobin (test code = 785-6) 24.5 28-32 L [facility] FallsMean Corpuscular Hemoglobin Concent 2018-10-04 05:15:00* Test Item Value Reference Range Interpretation Comments Mean Corpuscular Hemoglobin Concent (test code = 786-4) 31.5 31-35 [facility] FallsRed Cell Distribution Ouboo9726-55-94 05:15:00* Test Item Value Reference Range Interpretation Comments Red Cell Distribution Width (test code = 67103-2) 17.1 11.7 -14.4 H [facility] FallsPlatelet Gfrgt4414-43-34 05:15:00* Test Item Value Reference Range Interpretation Comments Platelet Count (test code = 777-3) 222 140-360 [facility] FallsNeutrophils (%) (Auto)2018-10-04 05:15:00 * Test Item Value Reference Range Interpretation Comments Neutrophils (%) (Auto) (test code = 03286-5) 74.4 38.7-80.0 [facility] FallsLymphocytes (%) (Auto)2018-10-04 05:15:00 * Test Item Value Reference Range Interpretation Comments Lymphocytes (%) (Auto) (test code = 736-9) 9.9 18.0-39.1 L [facility] FallsMonocytes (%) (Auto)2018-10-04 05:15:00* Test Item Value Reference Range Interpretation Comments Monocytes (%) (Auto) (test code = 5905-5) 9.0 4.4-11.3 [facility] FallsEosinophils (%) (Auto)2018-10-04 05:15:00 * Test Item Value Reference Range Interpretation Comments Eosinophils (%) (Auto) (test code = 713-8) 5.7 0.0-6.0 [facility] FallsBasophils (%) (Auto)2018-10-04 05:15:00* Test Item Value Reference Range Interpretation Comments Basophils (%) (Auto) (test code = 706-2) 0.5 0.0-1.0 [facility] FallsIM GRANULOCYTES %2018-10-04 05:15:00* Test Item Value Reference Range Interpretation Comments IM GRANULOCYTES % (test code = IM GRANULOCYTES %) 0.5 0.0- 1.0 [facility] FallsNeutrophils # (Auto)2018-10-04 05:15:00* Test Item Value Reference Range Interpretation Comments Neutrophils # (Auto) (test code = 751-8) 10.7 2.1-6.9 H [facility] FallsLymphocytes # (Auto)2018-10-04 05:15:00* Test Item Value Reference Range Interpretation Comments Lymphocytes # (Auto) (test code = 93631-1) 1.4 1.0-3.2 [facility] FallsMonocytes # (Auto)2018-10-04 05:15:00* Test Item Value Reference Range Interpretation Comments Monocytes # (Auto) (test code = 742-7) 1.3 0.2-0.8 H [facility] FallsEosinophils # (Auto)2018-10-04 05:15:00* Test Item Value Reference Range Interpretation Comments Eosinophils # (Auto) (test code = 711-2) 0.8 0.0-0.4 H [facility] FallsBasophils # (Auto)2018-10-04 05:15:00* Test Item Value Reference Range Interpretation Comments Basophils # (Auto) (test code = 704-7) 0.1 0.0-0.1 [facility] FallsAbsolute Immature Granulocyte (auto 2018-10-04 05:15:00* Test Item Value Reference Range Interpretation Comments Absolute Immature Granulocyte (auto (kristine t code = Absolute Immature Granulocyte (auto) 0.07 0-0.1 [facility] FallsLactic Acid Argwg9279-06-62 05:14:00* Test Item Value Reference Range Interpretation Comments Lactic Acid Level (test code = Lactic Acid Level) 14.4 4.5- 19.8 [facility] Centralodium Imjai9640-08-87 05:13:00* Test Item Value Reference Range Interpretation Comments Sodium Level (test code = 2951-2) 134 136-145 L [facility] FallsPotassium Lwpch6198-91-37 05:13:00* Test Item Value Reference Range Interpretation Comments Potassium Level (test code = 2823-3) 4.0 3.5-5.1 [facility] FallsChloride Ztxns4887-25-23 05:13:00* Test Item Value Reference Range Interpretation Comments Chloride Level (test code = 2075-0) 99 98-107 [facility] FallsCarbon Dioxide Peckg2920-73-66 05:13:00* Test Item Value Reference Range Interpretation Comments Carbon Dioxide Level (test code = 2028-9) 24 - [facility] FallsAnion Mqh4130-71-74 05:13:00* Test Item Value Reference Range Interpretation Comments Anion Gap (test code = 12670-7) 15.0 8-16 [facility] FallsBlood Urea Uxozawpy0561-78-84 05:13:00* Test Item Value Reference Range Interpretation Comments Blood Urea Nitrogen (test code = 3094-0) 23 7-26 [facility] FallsCreatinine2019-02-22 05:13:00* Test Item Value Reference Range Interpretation Comments Creatinine (test code = 2160-0) 1.45 0.72-1.25 H [facility] FallsBUN/Creatinine Ixtgn8820-62-38 05:13:00* Test Item Value Reference Range Interpretation Comments BUN/Creatinine Ratio (test code = 3097-3) 16 6- [facility] FallsEstimat Glomerular Filtration Rate 2018-10-04 05:13:00* Test Item Value Reference Range Interpretation Comments Estimat Glomerular Filtration Rate (test code = 568814835) 48 >60 L Ranges were taken from the National Kidney Disease Education Program and the [facility] Kidney Foundation literature.Reference ranges:60 or greater: Azcuwo47-83 ( for 3 consecutive months): Chronic kidney disease 15 or less: Kidney failureBaylor Scott & [facility] – Marble FallsGlucose Xgose5994-19-82 05:13:00* Test Item Value Reference Range Interpretation Comments Glucose Level (test code = UIX8696) 150 74-118 H [facility] FallsCalcium Olaic0844-56-12 05:13:00* Test Item Value Reference Range Interpretation Comments Calcium Level (test code = 96213-7) 9.6 8.4-10.2 [facility] FallsTotal Ivuzycbbo8776-37-45 05:13:00* Test Item Value Reference Range Interpretation Comments Total Bilirubin (test code = 1975-2) 0.5 0.2-1.2 [facility] Marble FallsAspartate Amino Transf (AST/SGOT) 2018-10-04 05:13:00* Test Item Value Reference Range Interpretation Comments Aspartate Amino Transf (AST/SGOT) (test code = Aspartate Amino Transf (AST/SGOT)) 18 5-34 [facility] FallsAlanine Aminotransferase (ALT/SGPT) 2018-10-04 05:13:00* Test Item Value Reference Range Interpretation Comments Alanine Aminotransferase (ALT/SGPT) (test code = 1742-6) 12 0-55 [facility] FallsTotal Kwyqlwx4327-31-49 05:13:00* Test Item Value Reference Range Interpretation Comments Total Protein (test code = 2885-2) 7.3 6.5-8.1 [facility] FallsAlbumin2019-02-22 05:13:00* Test Item Value Reference Range Interpretation Comments Albumin (test code = 1751-7) 3.3 3.5-5.0 L [facility] FallsGlobulin2019-02-22 05:13:00* Test Item Value Reference Range Interpretation Comments Globulin (test code = 07193-3) 4.0 2.3-3.5 H [facility] FallsAlbumin/Globulin Xhgtf5331-10-21 05:13:00 * Test Item Value Reference Range Interpretation Comments Albumin/Globulin Ratio (test code = 1759-0) 0.8 0.8-2.0 [facility] FallsAlkaline Awazwtqkxya0604-79-93 05:13:00* Test Item Value Reference Range Interpretation Comments Alkaline Phosphatase (test code = 6768-6) 80 40-150 [facility] FallsCHEST SINGLE (PORTABLE)2018-10-04 04:54:00 [place] [address] Patient Name: SIMON ORDAZ MR #: [id number] : 1945 Age/Sex: 73/M Req #: [id number] Adm Physician: Ordered by: SOM THURSTON MD Report #: [id number] Location: ER Room/Bed: Procedure: 0222-000 5 DX/CHEST SINGLE (PORTABLE) Exam Date: 10/04/18 Giovany poon Time: 434 REPORT STATUS: Signed EXAMINATION: CHEST SINGLE (PORTABLE) INDICATION: FEVER [id number] Y COMPARISON: 08/13/2017 FINDINGS: AP view TUBES and LINES: Right PICC in place with tip overlying SVC. LUNGS: Limited study due to low lung volumes and body habitus. Central vascular con gestion. PLEURA: No significant pleural effusion or pneumothorax. HEART AND MEDIASTINUM: The cardiomediastinal silhouette is enlarged on this AP view. BONES AND SOFT TISSUES: No acute osseous lesion. Soft tiss ues are unremarkable. UPPER ABDOMEN: No free air under the diaphragm. IMPRESSION: Limited by body habitus and low lung volumes. Enlarged ca rdiomediastinal silhouette and central vascular congestion. Underlying infiltr ate in the perihilar regions cannot be excluded. Signed by: Dr. Tim bolivar MD on 10/04/2018 4:56 AM Dictated By: TIM BOLAND MD [facility] Signed By: TIM BOLAND MD on 10/04/18455 Transcribed By: JONI on 455 COPY TO: SOM THURSTON MD Tobacco Use Edrimplgr1574-60-60 11:30:00* Test Item Value Reference Range Interpretation Comments Completed (test code = Completed) DONE [facility] PhysiciansCHEM SGTPD3986-16-98 11:15:003.7[facility] CHEM YGSRK1567-21-48 11:15:002.4[facility] HermannCHEM FCYSP2138-58-31 11:15:004.5 [facility] HermannCHEM FHEJE6326-40-27 11:15:00* Test Item Value Reference Range Interpretation Comments A/G Ratio (test code = A/G Ratio) 0.7 1 0.7-1.6 [facility] HermannCHEM RJBUA5145-44-70 11:15:00* Test Item Value Reference Range Interpretation Comments B/C Ratio (test code = B/C Ratio) 21 02-04 [facility]annCHEM TLNQA8117-71-64 11:15:0013.4[facility] HermannCHEM PANEL 2018-09-06 11:15:0054[facility] HermannCHEM CZNRF7148-86-09 11:15:001.31[facility] HermannCHEM KZSLL0254-91-86 11:15:003.2[facility] HermannCHEM ZKTRL6827-33-66 11:15:007.7[facility] HermannCHEM GALHL3390-57-04 11:15:99711Rkcrznet HermannCHEM NKFYG4976-11-71 11:15:38132Zbvvbaze HermannCHEM FCMHE0123-86-07 11:15:004.4 [facility]annCHEM LFKPL8105-31-76 11:15:0014[facility] HermannCHEM PANEL 2018-09-06 11:15:0015[facility] HermannCHEM YHPZX5697-18-73 11:15:0025[facility] HermannCHEM SAQHM5801-82-89 11:15:008.6[facility] HermannCHEM YJIBM3553-97-96 11:15:000.3[facility] HermannCHEM YABUH3587-46-65 11:15:0077[facility] HermannCHEM BJYNP0630-04-43 11:15:0028[facility] HermannCHEM UXDOT4238-20-33 11:15:24815 Memorial RpqahciMJYOAVDBFRDQ2719-42-62 11:15:0013.4[facility] HermannELECTROLYTES 2018-09-06 11:15:00* Test Item Value Reference Range Interpretation Comments B/C Ratio (test code = B/C Ratio) 21 02-04 [facility] TugbeqkPSXGXFXKUNUT2566-55-66 11:15:004.5[facility] HermannELECTROLYTES 2018-09-06 11:15:00* Test Item Value Reference Range Interpretation Comments A/G Ratio (test code = A/G Ratio) 0.7 1 0.7-1.6 [facility] VmpduriTIFVZBGGXFKC5538-08-28 11:15:12122Mywilumw HermannELECTROLYTES 2018-09-06 11:15:0028[facility] XiefakrJTMWMITYWKYL7358-43-64 11:15:001.31[facility] SloahmdPVNKYYTUCJFS6850-81-19 11:15:12508Aiaajhab PtkltexGIXRHQVSIAHR9282-31-41 11:15:004.4[facility] GrejaybPRGHFCUWIENE4077-52-09 11:15:89574Lwoucblo [place] WPOEBDNXYSXC2672-64-20 11:15:0025[facility] XiygicwPJKZSXMMAGKM1396-25-77 11:15:00 8.6[facility] AgobvcmRHEMDZUTTOED0148-78-55 11:15:007.7[facility] FVFMOQCHFKMU3694-51-05 11:15:003.2[facility] LxujdnxSVDJOVWBXJTG8931-24-08 11:15:0014[facility] BjugjhlBQQFKRZEASFC0034-59-52 11:15:0015[facility] NPLDWIABUAFY1937-60-90 11:15:0077[facility] MvqjkadPHFMMVEUHOTF3308-71-35 11:15:00 0.3[facility] YkbyihcSMMMECKCVSVJ9821-11-27 11:15:0054[facility] HermannHEMATOLOGY 2018-09-06 11:15:0073.1[facility] GyjmugxPKRFWJCSRO0658-44-57 11:15:0016.0[facility] RnuzekwMRMZGQTDVE1605-37-74 11:15:006.6[facility] PfzcugzDDNOAMDRBU6556-41-49 11:15:003.3[facility] VkopdghAJGEPZYWYJ6759-58-73 11:15:001.0[facility] LNITJFBEHW4237-18-10 11:15:007.8[facility] LuoqblfSVBXZTKLVK9848-91-97 11:15:001.7 [facility] DpuzyltJWQTRJOAHL4857-37-90 11:15:000.7[facility] HermannHEMATOLOGY 2018-09-06 11:15:000.3[facility] BcirtxqSJJRYSCBRT1630-16-27 11:15:000.1[facility] IdiktqsHCBBWCMJPR6667-20-71 11:15:001+ *ABN*(09/06/18 5:15 AM)[facility] DANEURJWBQ2488-93-10 11:15:0010.7[facility] DhgemqiOQNVZKAURJ5792-67-51 11:15:00 4.25[facility] FmodsgeHQRQRSELBX1843-06-39 11:15:0010.8[facility] HermannHEMATOLOGY 2018-09-06 11:15:0033.0[facility] CiidcnzPQQWPRNDHZ2323-94-46 11:15:0077.7[facility] JftjspwMOPXMIXHUJ5498-99-65 11:15:00* Test Item Value Reference Range Interpretation Comments MCH (test code = MCH) 25.4 pg 27.0-31.0 [facility] YabaptfGVCQSHSUMR5395-27-04 11:15:0032.7[facility] HermannHEMATOLOGY 2018-09-06 11:15:0017.4[facility] QflhcxtRUZEWBTAGM5240-18-91 11:15:31556Wmsaehbf JkaezvnOZDHOTIAST7891-38-86 11:15:007.6[facility] HermannCHEM HPKYI3874-04-76 12:28:74676Ouavkmtl HermannCHEM WAESX2052-36-36 12:28:0028[facility] HermannCHEM MHNSC1986-81-90 12:28:001.26[facility] HermannCHEM AEVLL2794-58-08 12:28:10915 [facility] HermannCHEM FLDVE4812-74-62 12:28:004.2[facility]annCHEM PANEL 2018-09-05 12:28:56413Vmnvfszj HermannCHEM [id number] 12:28:0027[facility]annCHEM [id number] 12:28:008.3[facility]annCHEM HVUUX2774-68-04 12:28:007.4[facility]annCHEM [id number] 12:28:003.2[facility]annCHEM [id number] 12:28:0016[facility]annCHEM [id number] 12:28:0016 [facility]annCHE[facility] [id number] 12:28:0074[facility]annCHEM PANEL 2018-09-05 12:28:000.4[facility]annCHEM [id number] 12:28:008.2[facility]annCHEM [id number] 12:28:00* Test Item Value Reference Range Interpretation Comments B/C Ratio (test code = B/C Ratio) 22 1 6-25 [facility]CHE[facility] [id number] 12:28:004.2[facility]annCHEM PANEL 2018-09-05 12:28:00* Test Item Value Reference Range Interpretation Comments A/G Ratio (test code = A/G Ratio) 0.8 1 0.7-1.6 [facility] [id number] 12:28:0056[facility]annCHEM PANEL 2018-09-05 12:28:002.5[facility]annCHE[facility] [id number] 12:28:003.5[facility] EmxcmtpGIZANFQPJC2159-05-60 12:28:0065.0[facility] CoqmbxbMOSNCVAVXU5730-12-63 12:28:0021.0[facility] BpcsgpkBMILBSVFPQ2960-66-02 12:28:0010.1[facility] JWQJFPERQI8207-65-09 12:28:003.2[facility] DlcizwuERVFDAIDZX0780-77-85 12:28:000.7 [facility] KlplifhGVZJPEUKPJ9804-11-55 12:28:006.3[facility]annHEMATOLOGY 2018-09-05 12:28:002.0[facility] ExfsmpqGTXLADDPEB9999-35-62 12:28:001.0[facility] HdgdgvwCTMHWJYASL7787-78-08 12:28:000.3[facility] RqmhjqpXVPHMFDAGG4976-06-84 12:28:000.1[facility] IfeipddDCPDEESJYI3065-42-87 12:28:001+ *ABN*(09/05/18 6:28 AM)[facility] PjzgwwfNHHVZDXMLP1643-88-91 12:28:009.6[facility]annHEMATOLOGY 2018-09-05 12:28:004.08[facility] VuegvaqMIFOALDRNE2180-53-13 12:28:0010.2[facility] MmdnwgmVTAMCYQPIG7575-73-10 12:28:0031.6[facility] JvgcixnIDHYJOLFSJ0053-52-23 12:28:0077.5[facility] JxwyicyQXCQTJQILT5475-42-95 12:28:00* Test Item Value Reference Range Interpretation Comments MCH (test code = MCH) 25.1 pg 27.0-31.0 [facility] TalveqoQSYGZXTMRG3075-75-91 12:28:0032.3[facility] HermannHEMATOLOGY 2018-09-05 12:28:0016.9[facility] KmsoeynUOALEZHNHL5401-57-50 12:28:46129Fzbvakot MozfhicHEGDTRFYBH5358-56-93 12:28:007.6[facility] PtbxliiISKMUY4571-70-14 12:28:00 53[facility] BgzbyxoQFXDDZ0183-87-22 12:28:78054Kxjwgwgf TenzjdfZBLZEH2354-99-60 12:28:0050[facility] KwmrxzxNOERQG2864-62-51 12:28:00* Test Item Value Reference Range Interpretation Comments CHD Risk (test code = CHD Risk) 3.10 1 4.00-7.30 [facility] XersqsmZKKSLW3533-94-48 12:28:0094[facility] RviuyucZIULJE5662-80-28 12:28:00* Test Item Value Reference Range Interpretation Comments VLDL (test code = VLDL) 11 1 [facility]annSPECIAL DXZGIHCIL0487-15-15 12:28:005.5[facility] HermannCHEM KWSPD8231-00-22 00:07:001.9[facility] HermannCHEM ZLDXA1510-88-16 22:44:0099 [facility]annCHEM DYNHH9015-60-67 22:44:0032[facility]annCHEM PANEL 2018-09-04 22:44:001.38[facility] HermannCHEM ICTKT2716-87-04 22:44:37959Fjncqftb HermannCHEM IPLHZ1356-31-10 22:44:004.6[facility] HermannCHEM AVWZI5933-32-85 22:44:85399Trxektfd HermannCHEM NOXZM0972-86-67 22:44:0024[facility]annCHEM PWRTT0070-91-09 22:44:008.9[facility] HermannCHEM KQGUB6273-26-23 22:44:008.2 [facility]annCHEM TDCCW5741-33-75 22:44:003.5[facility] HermannCHEM PANEL 2018-09-04 22:44:007[facility] HermannCHEM GDKHH8564-64-70 22:44:0017[facility] HermannCHEM MMQVQ9590-74-85 22:44:0079[facility] HermannCHEM TCCKI5798-81-42 22:44:000.4[facility] HermannCHEM NFWBF3678-68-78 22:44:0015.6[facility] HermannCHEM PFDEC7918-66-21 22:44:00* Test Item Value Reference Range Interpretation Comments B/C Ratio (test code = B/C Ratio) 23 1 6-25 [facility] HermannCHEM NPXDI5735-08-73 22:44:004.7[facility] HermannCHEM PANEL 2018-09-04 22:44:00* Test Item Value Reference Range Interpretation Comments A/G Ratio (test code = A/G Ratio) 0.7 1 0.7-1.6 [facility] HermannCHEM GEHIW3242-36-05 22:44:0050[facility]annHEMATOLOGY 2018-09-04 22:44:0011.0[facility] LcqdlrxKDPSKYVYSO4998-86-15 22:44:004.59[facility] RtskpmlPLQZFBHETU5431-60-66 22:44:0011.9[facility] ExddphtYTWDGNAJIG2994-81-41 22:44:0036.0[facility] QbrliouUITQKOHCGR6331-96-60 22:44:0078.4[facility] IFFUTNZAGL2833-31-83 22:44:00* Test Item Value Reference Range Interpretation Comments MCH (test code = MCH) 25.9 pg 27.0-31.0 [facility] EpcaoqmZVICPGIMGA1694-04-86 22:44:0033.0[facility] HermannHEMATOLOGY 2018-09-04 22:44:0017.5[facility] WiocwyiLBFHQNOOQL5619-99-61 22:44:22617Wmblcgyt QvllmdvNSRFZBHJBZ4550-13-34 22:44:007.5[facility] HermannMRI SPINE THORACIC WO 2018-06-03 17:01:00 [place] [address] Patient Name: SIMON ORDAZ MR #: [id number] : 1945 Age/Sex: 73/M Req #: [id number] Adm Physician: Ordered by: TANMAY DIAZ MD Report #: [id number] Location: MRI Room/Bed: Procedure: [id number] MRI/ MRI SPINE THORACIC WO Exam Date: Exam Time: REPORT STATUS: Signed History:Right mid back pain Comparison studies: X-ray of the thoracic spine 2017 Technique: Sagittal T1, T2 and STIR without contrast; axial and coronal T2. Findings: Curvature: Normal kyphosis. No scoliosis. Paraspinal soft tissues: No signal abnormalities. Incidentally noted 1.0 cm epididymal inclusion cyst at the right paracentral mid back. Spinal cord: Normal in size and signal inten sity through the tip of the conus at T12-L1 . Vertebrae: Normal in hei ght and signal intensity. No fractures, infection or neoplasm. Disk spa omar: Diffuse disc degeneration with low T2 signal and decreased intervertebral space. Disk herniations: None. Foramina: Patent. Spinal canal: Patent. IMPRESSION: 1. No acute abnormality. 2. Mild to moderate disc degeneration throughout the thoracic spine with patent canal and foramina Signed by: DR Raz Bills M.D. on 06/03/2018 5:12 PM Dictated By: RAZ CAMPOS MD [id number] Transcribed By: JONI on 06/03/181711 COPY TO: TANMAY DIAZ MD THORACIC SP [id number] 17:07:00 [place] [address] Patient Name: SIMON ORDAZ MR #: [id number] : 1945 Age/Sex: 73/M Req #: [id number] Adm Physician: Ordered by: TANMAY DIAZ MD Report #: [id number] Location: [facility] Room/Bed: Procedure: [id number] DX/THORACIC SP 3V Exam Date: 05/21/18 Exam Time: 1610 REPORT STATUS: Signed Exam: Thoracic spine 2 views History: Back pain Comparison: N one. Findings: No fracture or malalignment. Multilevel degenerative disc di sease with narrowing and endplate change. No abnormal soft tissue calcificatio n or soft tissue defect. Impression: No acute osseous abnormality Moderate multilevel thoracic spondylosis Signed by: Dr. Tesfaye Saini M.D. on 05/21/2018 5:12 PM Dictated By: TESFAYE SAINI MD [facility] Signed By: TESFAYE SAIIN MD on 05/21/181711 Transcribed By: JONI on 05/21/181711 COPY TO: TANMAY DIAZ MD CHEM CUFIG4508-33-67 11:50:0048[facility] HermannCHEM OGXCT9605-45-77 11:50:36110Luazdbsk HermannCHEM REEWM8289-01-82 11:50:007.9[facility] HermannCHEM WDVQS2851-02-73 11:50:0023 [facility] HermannCHEM JKTYS6940-38-13 11:50:003.8[facility] HermannCHEM PANEL 2018-04-10 11:50:24326Sdidostm HermannCHEM MWDVH8264-57-49 11:50:001.44[facility] HermannCHEM NQFZO4744-76-51 11:50:0016[facility] HermannCHEM NYUGW0858-20-98 11:50:04209Oqgfktea HermannCHEM DSNZM0102-02-90 11:50:0015.8[facility] WFLCFTUNJQ5478-74-26 11:50:007.5[facility] JqrfjhnWPVPBAWQPO5661-36-03 11:50:89466 [facility] VkomivtQYPIILEIAL2622-98-42 11:50:0018.4[facility] HermannHEMATOLOGY 2018-04-10 11:50:0031.0[facility] RgemxwgJZZPBTSXYD7083-76-77 11:50:00* Test Item Value Reference Range Interpretation Comments MCH (test code = MCH) 24.6 pg 27.0-31.0 [facility] TdjjroqYCPBSFHBSB9224-97-47 11:50:0079.4[facility] HermannHEMATOLOGY 2018-04-10 11:50:0034.0[facility] XmcewapYWWRABVUUM0996-20-27 11:50:0010.5[facility] SfpzrwpSCMCYCOGBS5593-91-71 11:50:004.28[facility] ZsijayaDDLVBSVXFX2898-02-56 11:50:0011.8[facility] XjcguxvKWFJEQITZN6351-08-04 11:50:000.1[facility] FLBLDOSYBU1711-58-13 11:50:000.5[facility] AkcgvvzNBTOQDWBYV9885-92-14 11:50:007.6 [facility] PtsdkrpUMJVTMEGLJ6892-79-22 11:50:004.7[facility] HermannHEMATOLOGY 2018-04-10 11:50:0011.2[facility] ZctdwcaSAMNBYLEEB2346-66-20 11:50:008.9[facility] HtcbxpgZAFETLHFOF8486-80-50 11:50:001.3[facility] PknqyozIGBYVOIKDN9004-67-86 11:50:0076.0[facility] NacigcwNNLHXSFVPL2303-86-14 11:50:000.6[facility] HMHUPOTTEL7465-34-93 11:50:000.9[facility] FvjmkwfDUBWBGFWNZ8253-07-34 08:54:00 17.0[facility] HermannBLOOD BANK AHOXIYQ3057-28-11 05:40:00Negative (04/08/18 12:40 AM)[facility] WhujukfTWILWQTIZFDR1383-16-58 05:40:0010.8[facility] RNAXFJMEXHBX1834-80-99 05:40:0073[facility] ZszjuuyVFRPXENMQCEA0830-24-15 05:40:00 78[facility] HlnwhllPPKPBARIAPIS1107-63-83 05:40:0011[facility] HermannELECTROLYTES 2018-04-08 05:40:001.02[facility] DqlsnpeBVHTPVNQFIAP8286-17-02 05:40:0029[facility] KbehillAHMADSTMJAZH1550-43-64 05:40:008.4[facility] DmcwggcWWNNAXNEWPQH3269-15-23 05:40:004.8[facility] OorseukRWBSTZWNTHTT6326-45-69 05:40:26515Frqvxkxh [facility] PVFHDMMIOYIX4327-94-96 05:40:42898Jwnetbvv JimxvzvHOVJAZWFHC9897-93-51 05:40:00 1.5[facility] IezimrdKUCYEFXVHX5567-00-33 05:40:000.7[facility] HermannHEMATOLOGY 2018-04-08 05:40:000.4[facility] WxcdaarGGQNUTWUVQ2052-55-13 05:40:001+ *ABN*(04/08/18 12:40 AM)[facility] DluomeqIJBMFNANZR6095-37-24 05:40:000.1[facility] GspmddeNPAVLRZJNG5808-77-72 05:40:0016.9[facility] TfrbgukPIFRLCOUCH5575-11-70 05:40:007.6[facility] SkoyzauVJTBQYJOEA0315-06-61 05:40:0070.4[facility] JOWTRJFHQO3638-38-62 05:40:006.5[facility] MvgczncSMLKVLDYZT1528-55-31 05:40:003.9 [facility] QsljnzlQUQJDWVTGY9748-29-27 05:40:001.2[facility] HermannHEMATOLOGY 2018-04-08 05:40:007.2[facility] VuoaascJJKFEJEYXD1045-70-54 05:40:0077.2[facility] GkfeenrOYJKIHQQQM3648-87-25 05:40:0034.3[facility] DhjntlrESKCXZCMIL3353-39-31 05:40:00* Test Item Value Reference Range Interpretation Comments MCH (test code = MCH) 24.6 pg 27.0-31.0 [facility] IffkiqqNWUTMKAMZV1398-38-92 05:40:0018.4[facility] HermannHEMATOLOGY 2018-04-08 05:40:0031.8[facility] XetclciGGJNJLUHWZ9396-92-14 05:40:61304Dxuszvrx TyltomzPHZKOQMZSR1723-56-92 05:40:009.2[facility] CunrdnqRMKASXQTBX7204-74-65 05:40:0010.9[facility] SwlutiyYELQPUOWUP6145-51-74 05:40:004.44[facility] QZUKDMGRCF6876-70-45 05:40:00* Test Item Value Reference Range Interpretation Comments INR (test code = INR) 1.07 1 0.85-1.17 [facility] ErnakjoNFNRZLZRJI9080-36-10 05:40:00* Test Item Value Reference Range Interpretation Comments PTT (test code = PTT) 46.7 s 22.9-35.8 [facility] GgxhnjkYOPJMEAGQN1440-22-14 05:40:00* Test Item Value Reference Range Interpretation Comments PT (test code = PT) 13.9 s 12.0-14.7 [facility] BuzyvoeJROFOGFKVU7044-77-62 05:40:0021.5[facility] HermannELECTROLYTES 2018-04-06 09:36:0016.2[facility] OsnpzcoSJLATPSNSZZS4274-21-25 09:36:0053[facility] FwsmuwkXRZHVRMXHXBG5537-78-64 09:36:004.2[facility] PjdxtrnEYDUSGLBFHES5476-40-75 09:36:66845Hibtajik UnxrhyxTYPQGSFLQQFZ6884-02-76 09:36:0025[facility] EGDNPOBXLADR0772-26-79 09:36:27088Frhaoirp OqnkoeeNQYHKVXOXAPO1746-96-07 09:36:001.32[facility] AbdqjhcHRUVNISMKWDM4033-54-44 09:36:008.8[facility] HOXFITLIQBYF8584-31-16 09:36:0018[facility] GqmwhblCXEABOGKRIHM0707-84-68 09:36:00 98[facility] CzenzeiQPLNMHNIXJ8014-57-12 09:36:0078.8[facility] HermannHEMATOLOGY 2018-04-06 09:36:00* Test Item Value Reference Range Interpretation Comments MCH (test code = MCH) 25.1 pg 27.0-31.0 [facility] CogeeelVNMHZWWILC2791-32-94 09:36:0031.8[facility] HermannHEMATOLOGY 2018-04-06 09:36:0010.2[facility] RpuvwkvPGVDRGEKPI4989-19-63 09:36:0011.9[facility] LiilrhuJRMGEXRWPH7940-04-41 09:36:0037.3[facility] YjeuecoTXJGCCNUJD5956-01-17 09:36:004.74[facility] MlzacoiXCJTBKYSCB5687-64-82 09:36:0018.6[facility] NVJPCHFXCT6934-53-54 09:36:41467Owspfmig EprbjpnSUMHCTWGSD6104-12-23 09:36:007.8 [facility] IpeekeoFJAQYXNSJE7441-54-70 09:36:001.5[facility] HermannHEMATOLOGY 2018-04-06 09:36:000.3[facility] AouimtpHTALAANKDZ9677-75-50 09:36:000.8[facility] MmcndyxOIPXZENHRM2410-85-21 09:36:0074.6[facility] PhwweavCJMFMCVXOF0990-36-54 09:36:0014.2[facility] UerhjsgNYGPAFZTSS6521-91-21 09:36:007.7[facility] METLEJRDCZ6655-06-50 09:36:002.5[facility] SrnpxkqMBDAIMJTKZ2889-05-52 09:36:001.0 [facility] QpaboteJBOTHKTDUG6488-37-23 09:36:007.6[facility] HermannHEMATOLOGY 2018-04-06 09:36:001+ *ABN*(04/06/18 4:36 AM)[facility] HcvbifkOJKDCVMPSX8471-68-29 09:36:000.1[facility] AonotclZYMCJKWGCC4406-75-91 02:26:0020.9[facility] EIPEFKYHUZ8637-26-87 02:26:00* Test Item Value Reference Range Interpretation Comments Vanco Tr TND (test code = Vanco Tr TND) 2200 1 [facility] HermannMOLECULAR WGTAZOWEXI9840-08-10 00:24:00Negative (04/05/18 7:24 PM)[facility] GfivylvSQNUZNTXYI5351-25-73 09:33:001+ *ABN*(04/05/18 4:33 AM) [facility] TkktewrQYOBFPUXAW9631-48-94 01:45:00* Test Item Value Reference Range Interpretation Comments PT (test code = PT) 24.8 s 12.0-14.7 [facility] UusxqaaDAMBXYVKNK3963-95-85 01:45:00* Test Item Value Reference Range Interpretation Comments INR (test code = INR) 2.21 1 0.85-1.17 [facility] VdavxgxARKPNNTPME1262-03-60 01:45:00* Test Item Value Reference Range Interpretation Comments PTT (test code = PTT) 60.2 s 22.9-35.8 [facility]annURINE AND EMDJP0821-77-90 21:50:00Negative *NA*(04/04/18 4:50 PM) [facility] AND VKJWG3344-81-23 21:50:00Negative (04/04/18 4:50 PM) [facility] AND AXMFJ5813-67-01 21:50:001.0[facility]annUR[facility] AND NTNZG7300-51-67 21:50:00Negative (04/04/18 4:50 PM)[facility]UR[facility] AND AFNIW8895-96-56 21:50:00Negative *NA*(04/04/18 4:50 PM)[facility] AND KUQUG0238-27-83 21:50:00Negative (04/04/18 4:50 PM)[facility] AND MELOA1965-47-86 21:50:00None Seen (04/04/18 4:50 PM)[facility] AND MCIWH3149-55-90 21:50:00Negative (04/04/18 4:50 PM)[facility] AND ZGKAS7321-19-01 21:50:00None Seen (04/04/18 4:50 PM)[facility] AND BMBEB0026-71-24 21:50:00None Seen (04/04/18 4:50 PM)[facility] AND EDZZQ0373-79-62 21:50:00<=1.005 *NA*(04/04/18 4:50 PM)[facility]annUR[facility] AND WBIND5062-22-05 21:50:00* Test Item Value Reference Range Interpretation Comments UA pH (test code = UA pH) 6.0 1 5.0-8.0 [facility] AND FAOLQ5618-76-08 21:50:00Clear (04/04/18 4:50 PM) [facility] CYTNO9290-20-00 21:50:00Negative (04/04/18 4:50 PM) [facility] OCMSG5522-71-85 21:50:00Yellow *NA*(04/04/18 4:50 PM) [facility]annCHEM GAUOY8929-78-28 17:01:002.9[facility] HermannCHEM PANEL 2018-04-04 17:01:008.3[facility] HermannCHEM LAPKF9843-88-44 17:01:0022[facility] HermannCHEM VUYCY8965-40-54 17:01:0010[facility] HermannCHEM VVERM1635-32-57 17:01:000.4[facility] HermannCHEM OCMGX6008-37-35 17:01:0063[facility] HermannCHEM AUOLD7448-37-79 17:01:00* Test Item Value Reference Range Interpretation Comments A/G Ratio (test code = A/G Ratio) 0.5 1 0.7-1.6 [facility]annCHEM VTJCN4960-39-62 17:01:005.4[facility] HermannCHEM PANEL 2018-04-04 17:01:00* Test Item Value Reference Range Interpretation Comments B/C Ratio (test code = B/C Ratio) 15 1 6-25 [facility] VUWLC8307[facility]72[facility]72 17:01:001.9[facility] 2018-[facility]-04 17:01:00* Test Item Value Reference Range Interpretation Comments PT (test code = PT) 27.5 s 12.0-14.7 [facility]LcbflgoEXXLMQHRYY6486-31-28 17:01:00* Test Item Value Reference Range Interpretation Comments INR (test code = INR) 2.52 1 0.85-1.17 [facility]qsenhEETVXYDNBB0520-83-84 17:01:00* Test Item Value Reference Range Interpretation Comments PTT (test code = PTT) 74.4 s 22.9-35.8 [facility], CHEST, 2 SFYQO1548-31-25 10:33:00Reason for Exam:-> Paroxysmal atrial fibrillation [I48.0]FINAL REPORT HISTORY : Paroxysmal atrial fibrillation [I48.0]. [...] cardiothoracic abnormalities. No significant interval change. Signed: Tito Arnett Verified Date/Time: 12/24/2017 10:33:32 Reading Location: [address] Radiology Reading Room D BVQFG3328-29-66 10:25:00* Test Item Value Reference Range Interpretation Comments TRIGLYCERIDES (BEAKER) (test code = 540) 73 mg/dL CHOLESTEROL (BEAKER) (test code = 631) 214 mg/dL HDL CHOLESTEROL (BEAKER) (test code = 976) 56 mg/dL LDL CHOLESTEROL CALCULATED (BEAKER) (test code = 633) 143 mg/dL Triglyceride Reference Range: Low Risk <150 Borderline 150-199 High Risk 200-499 Very High Risk >=500Cholesterol Reference Range: Low Risk <200 Borderline 200-239 High Risk >240HDL Cholesterol Reference Range: Low Risk >=60 High Risk <40LDL Cholesterol Reference Range: Optimal <100 Near Optimal 100-129 Borderline 130-159 High 160-189 Very High >=190 COMPREHENSIVE METABOLIC AOEGT6405-09-11 10:25:00* Test Item Value Reference Range Interpretation Comments TOTAL PROTEIN (BEAKER) (test code = 770) 8.4 gm/dL 6.0-8.3 H ALBUMIN (BEAKER) (test code = 1145) 4.2 g/dL 3.5-5.0 ALKALINE PHOSPHATASE (BEAKER) (test code = 346) 77 U/L 40-150 BILIRUBIN TOTAL (BEAKER) (test code = 377) 0.5 mg/dL 0.2-1.2 SODIUM (BEAKER) (test code = 381) 141 meq/L 136-145 POTASSIUM (BEAKER) (test code = 379) 5.4 meq/L 3.5-5.1 H CHLORIDE (BEAKER) (test code = 382) 101 meq/L 98-107 CO2 (BEAKER) (test code = 355) 27 meq/L 22-29 BLOOD UREA NITROGEN (BEAKER) (test code = 354) 30 mg/dL 7-21 H CREATININE (BEAKER) (test code = 358) 1.63 mg/dL 0.57-1.25 H GLUCOSE RANDOM (BEAKER) (test code = 652) 115 mg/dL 70-105 H CALCIUM (BEAKER) (test code = 697) 10.0 mg/dL 8.4-10.2 AST (SGOT) (BEAKER) (test code = 353) 26 U/L 5-34 ALT (SGPT) (BEAKER) (test code = 347) 10 U/L 6-55 EGFR (BEAKER) (test code = 1092) 42 mL/min/1.73 sq m ESTIMATED GFR IS NOT ACCURATE CREATININE CLEARANCE IN PREDICTING GLOMERULAR FILTRATION RATE. ESTIMATED GFR IS NOT APPLICABLE FOR DIALYSIS PATIENTS. CBC W/PLT COUNT & AUTO RYGAWBIKUXTK6713-89-35 09:53:00* Test Item Value Reference Range Interpretation Comments WHITE BLOOD CELL COUNT (BEAKER) (test code = 775) 10.5 K/ L 3.5- 10.5 RED BLOOD CELL COUNT (BEAKER) (test code = 761) 5.56 M/ L 4.63-6 .08 HEMOGLOBIN (BEAKER) (test code = 410) 13.3 GM/DL 13.7-17.5 L HEMATOCRIT (BEAKER) (test code = 411) 45.9 % 40.1-51.0 MEAN CORPUSCULAR VOLUME (BEAKER) (test code = 753) 82.6 fL 79. 0-92.2 MEAN CORPUSCULAR HEMOGLOBIN (BEAKER) (test code = 751) 23.9 pg 25.7-32.2 L MEAN CORPUSCULAR HEMOGLOBIN CONC (BEAKER) (test code = 752) 29.0 GM/DL 32.3-36.5 L RED CELL DISTRIBUTION WIDTH (BEAKER) (test code = 412) 19.9 % 11.6-14.4 H PLATELET COUNT (BEAKER) (test code = 756) 301 K/CU MM 150-450 MEAN PLATELET VOLUME (BEAKER) (test code = 754) 9.6 fL 9.4-12 .4 NUCLEATED RED BLOOD CELLS (BEAKER) (test code = 413) 0 /100 WBC 0 -0 NEUTROPHILS RELATIVE PERCENT (BEAKER) (test code = 429) 68 % LYMPHOCYTES RELATIVE PERCENT (BEAKER) (test code = 430) 20 % MONOCYTES RELATIVE PERCENT (BEAKER) (test code = 431) 8 % EOSINOPHILS RELATIVE PERCENT (BEAKER) (test code = 432) 3 % BASOPHILS RELATIVE PERCENT (BEAKER) (test code = 437) 1 % NEUTROPHILS ABSOLUTE COUNT (BEAKER) (test code = 670) 7.12 K/ L 1.78-5.38 H LYMPHOCYTES ABSOLUTE COUNT (BEAKER) (test code = 414) 2.05 K/ L 1.32-3.57 MONOCYTES ABSOLUTE COUNT (BEAKER) (test code = 415) 0.85 K/ L 0. 30-0.82 H EOSINOPHILS ABSOLUTE COUNT (BEAKER) (test code = 416) 0.27 K/ L 0.04-0.54 BASOPHILS ABSOLUTE COUNT (BEAKER) (test code = 417) 0.11 K/ L 0. 01-0.08 H IMMATURE GRANULOCYTES-RELATIVE PERCENT (BEAKER) (test code = 2801) 1 % 0-1 LIPID TERHB2472-63-07 15:05:00* Test Item Value Reference Range Interpretation Comments TRIGLYCERIDES (BEAKER) (test code = 540) 80 mg/dL CHOLESTEROL (BEAKER) (test code = 631) 231 mg/dL HDL CHOLESTEROL (BEAKER) (test code = 976) 64 mg/dL LDL CHOLESTEROL CALCULATED (BEAKER) (test code = 633) 151 mg/dL Triglyceride Reference Range: Low Risk <150 Borderline 150-199 High Risk 200-499 Very High Risk >=500Cholesterol Reference Range: Low Risk <200 Borderline 200-239 High Risk >240HDL Cholesterol Reference Range: Low Risk >=60 High Risk <40LDL Cholesterol Reference Range: Optimal <100 Near Optimal 100-129 Borderline 130-159 High 160-189 Very High >=190 COMPREHENSIVE METABOLIC [id number] 15:05:00* Test Item Value Reference Range Interpretation Comments TOTAL PROTEIN (BEAKER) (test code = 770) 9.2 gm/dL 6.0-8.3 H ALBUMIN (BEAKER) (test code = 1145) 4.4 g/dL 3.5-5.0 ALKALINE PHOSPHATASE (BEAKER) (test code = 346) 75 U/L 40-150 BILIRUBIN TOTAL (BEAKER) (test code = 377) 0.6 mg/dL 0.2-1.2 SODIUM (BEAKER) (test code = 381) 141 meq/L 136-145 POTASSIUM (BEAKER) (test code = 379) 4.8 meq/L 3.5-5.1 CHLORIDE (BEAKER) (test code = 382) 99 meq/L 98-107 CO2 (BEAKER) (test code = 355) 28 meq/L 22-29 BLOOD UREA NITROGEN (BEAKER) (test code = 354) 23 mg/dL 7-21 H CREATININE (BEAKER) (test code = 358) 1.81 mg/dL 0.57-1.25 H GLUCOSE RANDOM (BEAKER) (test code = 652) 143 mg/dL 70-105 H CALCIUM (BEAKER) (test code = 697) 10.4 mg/dL 8.4-10.2 H AST (SGOT) (BEAKER) (test code = 353) 28 U/L 5-34 ALT (SGPT) (BEAKER) (test code = 347) 12 U/L 6-55 EGFR (BEAKER) (test code = 1092) 37 mL/min/1.73 sq m ESTIMATED GFR IS NOT ACCURATE CREATININE CLEARANCE IN PREDICTING GLOMERULAR FILTRATION RATE. ESTIMATED GFR IS NOT APPLICABLE FOR DIALYSIS PATIENTS. CBC W/PLT COUNT & AUTO [id number] 14:40:00* Test Item Value Reference Range Interpretation Comments WHITE BLOOD CELL COUNT (BEAKER) (test code = 775) 14.4 K/ L 3.5- 10.5 H RED BLOOD CELL COUNT (BEAKER) (test code = 761) 6.26 M/ L 4.63-6 .08 H HEMOGLOBIN (BEAKER) (test code = 410) 14.4 GM/DL 13.7-17.5 HEMATOCRIT (BEAKER) (test code = 411) 49.4 % 40.1-51.0 MEAN CORPUSCULAR VOLUME (BEAKER) (test code = 753) 78.9 fL 79. 0-92.2 L MEAN CORPUSCULAR HEMOGLOBIN (BEAKER) (test code = 751) 23.0 pg 25.7-32.2 L MEAN CORPUSCULAR HEMOGLOBIN CONC (BEAKER) (test code = 752) 29.1 GM/DL 32.3-36.5 L RED CELL DISTRIBUTION WIDTH (BEAKER) (test code = 412) 18.6 % 11.6-14.4 H PLATELET COUNT (BEAKER) (test code = 756) 386 K/CU MM 150-450 MEAN PLATELET VOLUME (BEAKER) (test code = 754) 9.3 fL 9.4-12 .4 L NUCLEATED RED BLOOD CELLS (BEAKER) (test code = 413) 0 /100 WBC 0 -0 NEUTROPHILS RELATIVE PERCENT (BEAKER) (test code = 429) 78 % LYMPHOCYTES RELATIVE PERCENT (BEAKER) (test code = 430) 14 % MONOCYTES RELATIVE PERCENT (BEAKER) (test code = 431) 7 % EOSINOPHILS RELATIVE PERCENT (BEAKER) (test code = 432) 1 % BASOPHILS RELATIVE PERCENT (BEAKER) (test code = 437) 1 % NEUTROPHILS ABSOLUTE COUNT (BEAKER) (test code = 670) 11.20 K/ L 1.78-5.38 H LYMPHOCYTES ABSOLUTE COUNT (BEAKER) (test code = 414) 2.00 K/ L 1.32-3.57 MONOCYTES ABSOLUTE COUNT (BEAKER) (test code = 415) 0.95 K/ L 0. 30-0.82 H EOSINOPHILS ABSOLUTE COUNT (BEAKER) (test code = 416) 0.08 K/ L 0.04-0.54 BASOPHILS ABSOLUTE COUNT (BEAKER) (test code = 417) 0.11 K/ L 0. 01-0.08 H IMMATURE GRANULOCYTES-RELATIVE PERCENT (BEAKER) (test code = 2801) 1 % 0-1 U/S, FINE NEEDLE ASPIRATION, [id number] 13:02:00Reason for exam:->left thyroid mass 1.8 cmShould [...] f the biopsy difficult.. Signed: Shae Toribio MDReport Verified Date/Time: 09/03/2017 13:02:08 Reading Location: [facility] B1 [id number] Ultrasound Reading Room LOGY 2017-08-27 15:07:00Medical Cytology Report Case: [id number] Authorizing Provider: Cecy Uribe Collected: 08/24/2017 1320 MD Sabiha Ordering Location: [address] Received: 08/27/2017 0942 Service Pathologist: Nia Mcmahon Specimen: Thyroid, Left LEFT LOBE, THYROID NODULE, FNA BY CLINICIAN (CYTOSPINS): - DIAGNOSTIC CATEGORY: BENIGN - SOME COLLOID AND A FEW BENIGN APPEARING FOLLICULAR CELLS Signing Pathologist Direct Phone Line: [phone] signed by Nia Mcmahon on 08/27/2017 at 3:07 [id number](1.8 cm) Left thyroid nodule LEFT LOBE THYROID NODULE FNA25 mls in cytorich red; 4 cytospinsCollected: [id number]: [id number] [facility], Department of Pathology, [address] [place] [address], [facility], [facility], [address] [place], [place] [id number], [id number] 15:03:00Medical Cytology Report Case: [id number] Authorizing Provider: Cecy Uribe Collected: 08/24/2017 Kp Landis MD Ordering Location: [address] Received: 08/27/2017 0943 Service Pathologist: Nia Mcmahon Specimen: Thyroid, Left LEFT LOBE THYROID GLAND, ISTHMUS NODULE, FNA BY CLINICIAN (CYTOSPINS): - DIAGNOSTIC CATEGORY: BENIGN - BENIGN APPEARING FOLLICULAR CELLS AND COLLOID PRESENT Signing Pathologist Direct Phone Line: [phone] signed by Nia Mcmahon on 08/27/2017 at 3:03 [id number](1.7 cm) Left thyroid isthmus noduleLEFT LOBE THYROID GLAND ISTHMUS NODULE FNA25 mls in cytorich red; 4 cytospinsCollected: [id number]: [id number] [facility], Department of [facility], [address] [place] [address], [facility], Department of Path[facility], [address] [place] [address], HWECLCCYJE W/ [id number] 14:33:00* Test Item Value Reference Range Interpretation Comments COLOR (BEAKER) (test code = 470) Yellow CLARITY (BEAKER) (test code = 469) Clear SPECIFIC GRAVITY UA (BEAKER) (test code = 468) 1.011 1.001-1 .035 PH UA (BEAKER) (test code = 467) 5.5 5.0-8.0 PROTEIN UA (BEAKER) (test code = 464) Negative Negative GLUCOSE UA (BEAKER) (test code = 365) Negative Negative KETONES UA (BEAKER) (test code = 371) Negative Negative BILIRUBIN UA (BEAKER) (test code = 462) Negative Negative BLOOD UA (BEAKER) (test code = 461) Negative Negative NITRITE UA (BEAKER) (test code = 465) Negative Negative LEUKOCYTE ESTERASE UA (BEAKER) (test code = 466) Negative Negat sonia UROBILINOGEN UA (BEAKER) (test code = 463) 0.2 mg/dL 0.2-1.0 RBC UA (BEAKER) (test code = 519) 0 /HPF WBC UA (BEAKER) (test code = 520) 0 /HPF SQUAMOUS EPITHELIAL (BEAKER) (test code = 516) < /HPF HYALINE CASTS (BEAKER) (test code = 514) 1 /LPF SOURCE(BEAKER) (test code = 2795) Urine, Voided [id number] 13:34:00* Test Item Value Reference Range Interpretation Comments CORTISOL, TOTAL (BEAKER) (test code = 2755) 9.5 ug/dL 3.7-19.4 CBC W/PLT COUNT & AUTO [id number] 07:12:00* Test Item Value Reference Range Interpretation Comments WHITE BLOOD CELL COUNT (BEAKER) (test code = 775) 12.5 K/ L 3.5- 10.5 H RED BLOOD CELL COUNT (BEAKER) (test code = 761) 5.40 M/ L 4.63-6 .08 HEMOGLOBIN (BEAKER) (test code = 410) 13.0 GM/DL 13.7-17.5 L HEMATOCRIT (BEAKER) (test code = 411) 44.1 % 40.1-51.0 MEAN CORPUSCULAR VOLUME (BEAKER) (test code = 753) 81.7 fL 79. 0-92.2 MEAN CORPUSCULAR HEMOGLOBIN (BEAKER) (test code = 751) 24.1 pg 25.7-32.2 L MEAN CORPUSCULAR HEMOGLOBIN CONC (BEAKER) (test code = 752) 29.5 GM/DL 32.3-36.5 L RED CELL DISTRIBUTION WIDTH (BEAKER) (test code = 412) 18.7 % 11.6-14.4 H PLATELET COUNT (BEAKER) (test code = 756) 337 K/CU MM 150-450 MEAN PLATELET VOLUME (BEAKER) (test code = 754) 10.0 fL 9.4-12 .4 NUCLEATED RED BLOOD CELLS (BEAKER) (test code = 413) 0 /100 WBC 0 -0 NEUTROPHILS RELATIVE PERCENT (BEAKER) (test code = 429) 76 % LYMPHOCYTES RELATIVE PERCENT (BEAKER) (test code = 430) 13 % MONOCYTES RELATIVE PERCENT (BEAKER) (test code = 431) 8 % EOSINOPHILS RELATIVE PERCENT (BEAKER) (test code = 432) 1 % BASOPHILS RELATIVE PERCENT (BEAKER) (test code = 437) 1 % NEUTROPHILS ABSOLUTE COUNT (BEAKER) (test code = 670) 9.54 K/ L 1.78-5.38 H LYMPHOCYTES ABSOLUTE COUNT (BEAKER) (test code = 414) 1.66 K/ L 1.32-3.57 MONOCYTES ABSOLUTE COUNT (BEAKER) (test code = 415) 0.94 K/ L 0. 30-0.82 H EOSINOPHILS ABSOLUTE COUNT (BEAKER) (test code = 416) 0.13 K/ L 0.04-0.54 BASOPHILS ABSOLUTE COUNT (BEAKER) (test code = 417) 0.08 K/ L 0. 01-0.08 IMMATURE GRANULOCYTES-RELATIVE PERCENT (BEAKER) (test code = 2801) 1 % 0-1 BASIC METABOLIC [id number] 05:52:00* Test Item Value Reference Range Interpretation Comments SODIUM (BEAKER) (test code = 381) 137 meq/L 136-145 POTASSIUM (BEAKER) (test code = 379) 5.0 meq/L 3.5-5.1 Specimen slightly hemolyzed CHLORIDE (BEAKER) (test code = 382) 102 meq/L 98-107 CO2 (BEAKER) (test code = 355) 24 meq/L 22-29 BLOOD UREA NITROGEN (BEAKER) (test code = 354) 18 mg/dL 7-21 CREATININE (BEAKER) (test code = 358) 1.38 mg/dL 0.57-1.25 H Specimen slightly hemolyzed GLUCOSE RANDOM (BEAKER) (test code = 652) 85 mg/dL 70-105 CALCIUM (BEAKER) (test code = 697) 8.8 mg/dL 8.4-10.2 EGFR (BEAKER) (test code = 1092) 51 mL/min/1.73 sq m ESTIMATED GFR IS NOT ACCURATE CREATININE CLEARANCE IN PREDICTING GLOMERULAR FILTRATION RATE. ESTIMATED GFR IS NOT APPLICABLE FOR DIALYSIS PATIENTS. OSMOLALITY, [id number] 17:00:00* Test Item Value Reference Range Interpretation Comments OSMOLALITY URINE (BEAKER) (test code = 614) 541 mOsm/kg 40-1400 CHLORIDE, RANDOM [id number] 16:22:00* Test Item Value Reference Range Interpretation Comments CHLORIDE URINE (BEAKER) (test code = 682) 131 meq/L Reference Range: No NormalsCREATININE, RANDOM [id number] 16:22:00* Test Item Value Reference Range Interpretation Comments CREATININE URINE (BEAKER) (test code = 375) 89.8 mg/dL Reference Range: No NormalsPOTASSIUM, RANDOM [id number] 16:22:00* Test Item Value Reference Range Interpretation Comments POTASSIUM URINE (BEAKER) (test code = 195) 37.4 meq/L Reference Range: No NormalsSODIUM, RANDOM [id number] 16:22:00* Test Item Value Reference Range Interpretation Comments SODIUM URINE (BEAKER) (test code = 243) 125 meq/L Reference Range: No NormalsU/S, FINE NEEDLE ASPIRATION, [id number] 14:02:00Reason for exam:->left isthmus mass 1.7 cmShould [...] imaging of the biopsy difficult.. Signed: Shae Toribioeport Verified Date/Time: 08/24/2017 14:02:55 Reading Location: [facility] P006J Ultrasound Reading Room W/PLT COUNT & AUTO [id number] 09:20:00* Test Item Value Reference Range Interpretation Comments WHITE BLOOD CELL COUNT (BEAKER) (test code = 775) 11.2 K/ L 3.5- 10.5 H RED BLOOD CELL COUNT (BEAKER) (test code = 761) 5.29 M/ L 4.63-6 .08 HEMOGLOBIN (BEAKER) (test code = 410) 12.6 GM/DL 13.7-17.5 L HEMATOCRIT (BEAKER) (test code = 411) 43.0 % 40.1-51.0 MEAN CORPUSCULAR VOLUME (BEAKER) (test code = 753) 81.3 fL 79. 0-92.2 MEAN CORPUSCULAR HEMOGLOBIN (BEAKER) (test code = 751) 23.8 pg 25.7-32.2 L MEAN CORPUSCULAR HEMOGLOBIN CONC (BEAKER) (test code = 752) 29.3 GM/DL 32.3-36.5 L RED CELL DISTRIBUTION WIDTH (BEAKER) (test code = 412) 18.1 % 11.6-14.4 H PLATELET COUNT (BEAKER) (test code = 756) 333 K/CU MM 150-450 MEAN PLATELET VOLUME (BEAKER) (test code = 754) 9.7 fL 9.4-12 .4 NUCLEATED RED BLOOD CELLS (BEAKER) (test code = 413) 0 /100 WBC 0 -0 NEUTROPHILS RELATIVE PERCENT (BEAKER) (test code = 429) 76 % LYMPHOCYTES RELATIVE PERCENT (BEAKER) (test code = 430) 14 % MONOCYTES RELATIVE PERCENT (BEAKER) (test code = 431) 7 % EOSINOPHILS RELATIVE PERCENT (BEAKER) (test code = 432) 1 % BASOPHILS RELATIVE PERCENT (BEAKER) (test code = 437) 1 % NEUTROPHILS ABSOLUTE COUNT (BEAKER) (test code = 670) 8.55 K/ L 1.78-5.38 H LYMPHOCYTES ABSOLUTE COUNT (BEAKER) (test code = 414) 1.52 K/ L 1.32-3.57 MONOCYTES ABSOLUTE COUNT (BEAKER) (test code = 415) 0.83 K/ L 0. 30-0.82 H EOSINOPHILS ABSOLUTE COUNT (BEAKER) (test code = 416) 0.14 K/ L 0.04-0.54 BASOPHILS ABSOLUTE COUNT (BEAKER) (test code = 417) 0.07 K/ L 0. 01-0.08 IMMATURE GRANULOCYTES-RELATIVE PERCENT (BEAKER) (test code = 2801) 1 % 0-1 BASIC METABOLIC [id number] 07:45:00* Test Item Value Reference Range Interpretation Comments SODIUM (BEAKER) (test code = 381) 141 meq/L 136-145 POTASSIUM (BEAKER) (test code = 379) 4.9 meq/L 3.5-5.1 CHLORIDE (BEAKER) (test code = 382) 106 meq/L 98-107 CO2 (BEAKER) (test code = 355) 25 meq/L 22-29 BLOOD UREA NITROGEN (BEAKER) (test code = 354) 18 mg/dL 7-21 CREATININE (BEAKER) (test code = 358) 1.21 mg/dL 0.57-1.25 GLUCOSE RANDOM (BEAKER) (test code = 652) 107 mg/dL 70-105 H CALCIUM (BEAKER) (test code = 697) 9.0 mg/dL 8.4-10.2 EGFR (BEAKER) (test code = 1092) 59 mL/min/1.73 sq m ESTIMATED GFR IS NOT ACCURATE CREATININE CLEARANCE IN PREDICTING GLOMERULAR FILTRATION RATE. ESTIMATED GFR IS NOT APPLICABLE FOR DIALYSIS PATIENTS. CBC W/PLT COUNT & AUTO [id number] 06:22:00* Test Item Value Reference Range Interpretation Comments WHITE BLOOD CELL COUNT (BEAKER) (test code = 775) 12.0 K/ L 3.5- 10.5 H RED BLOOD CELL COUNT (BEAKER) (test code = 761) 5.29 M/ L 4.63-6 .08 HEMOGLOBIN (BEAKER) (test code = 410) 12.8 GM/DL 13.7-17.5 L HEMATOCRIT (BEAKER) (test code = 411) 42.9 % 40.1-51.0 MEAN CORPUSCULAR VOLUME (BEAKER) (test code = 753) 81.1 fL 79. 0-92.2 MEAN CORPUSCULAR HEMOGLOBIN (BEAKER) (test code = 751) 24.2 pg 25.7-32.2 L MEAN CORPUSCULAR HEMOGLOBIN CONC (BEAKER) (test code = 752) 29.8 GM/DL 32.3-36.5 L RED CELL DISTRIBUTION WIDTH (BEAKER) (test code = 412) 17.7 % 11.6-14.4 H PLATELET COUNT (BEAKER) (test code = 756) 306 K/CU MM 150-450 MEAN PLATELET VOLUME (BEAKER) (test code = 754) 9.5 fL 9.4-12 .4 NUCLEATED RED BLOOD CELLS (BEAKER) (test code = 413) 0 /100 WBC 0 -0 NEUTROPHILS RELATIVE PERCENT (BEAKER) (test code = 429) 76 % LYMPHOCYTES RELATIVE PERCENT (BEAKER) (test code = 430) 14 % MONOCYTES RELATIVE PERCENT (BEAKER) (test code = 431) 8 % EOSINOPHILS RELATIVE PERCENT (BEAKER) (test code = 432) 1 % BASOPHILS RELATIVE PERCENT (BEAKER) (test code = 437) 1 % NEUTROPHILS ABSOLUTE COUNT (BEAKER) (test code = 670) 9.03 K/ L 1.78-5.38 H LYMPHOCYTES ABSOLUTE COUNT (BEAKER) (test code = 414) 1.68 K/ L 1.32-3.57 MONOCYTES ABSOLUTE COUNT (BEAKER) (test code = 415) 0.90 K/ L 0. 30-0.82 H EOSINOPHILS ABSOLUTE COUNT (BEAKER) (test code = 416) 0.14 K/ L 0.04-0.54 BASOPHILS ABSOLUTE COUNT (BEAKER) (test code = 417) 0.10 K/ L 0. 01-0.08 H IMMATURE GRANULOCYTES-RELATIVE PERCENT (BEAKER) (test code = 2801) 1 % 0-1 [id number] 05:17:00* Test Item Value Reference Range Interpretation Comments MAGNESIUM (BEAKER) (test code = 627) 1.6 mg/dL 1.6-2.6 BASIC METABOLIC [id number] 05:17:00* Test Item Value Reference Range Interpretation Comments SODIUM (BEAKER) (test code = 381) 136 meq/L 136-145 POTASSIUM (BEAKER) (test code = 379) 4.5 meq/L 3.5-5.1 CHLORIDE (BEAKER) (test code = 382) 104 meq/L 98-107 CO2 (BEAKER) (test code = 355) 22 meq/L 22-29 BLOOD UREA NITROGEN (BEAKER) (test code = 354) 16 mg/dL 7-21 CREATININE (BEAKER) (test code = 358) 1.06 mg/dL 0.57-1.25 GLUCOSE RANDOM (BEAKER) (test code = 652) 97 mg/dL 70-105 CALCIUM (BEAKER) (test code = 697) 9.2 mg/dL 8.4-10.2 EGFR (BEAKER) (test code = 1092) 69 mL/min/1.73 sq m ESTIMATED GFR IS NOT ACCURATE CREATININE CLEARANCE IN PREDICTING GLOMERULAR FILTRATION RATE. ESTIMATED GFR IS NOT APPLICABLE FOR DIALYSIS PATIENTS. U/S, [id number] 21:18:00Reason for exam:->abnormal CT chest with ? [...] thyroid nodule. Consider follow-up with otolaryngology. Signed: Evangelista Grider MDReport Verified Date/Time: 08/22/2017 21:18:50 Reading Location: [facility] C013T Transitional Reading Room , CARDIAC PERFUSION MULTIPLE STUDIES, REST AND [id number] 14:15:00Reason for exam:->chest painFINAL REPORT PROCEDURE: Rest/Stress MYOCARDIAL PERFUSION PET with regadenoson\\XA9\\ CPT CODE: 52079 INDICATION: Chest pain, evaluate acute chest pain/discomfort [...] obtained. PRELIMINARY STRESS TEST DATA FROM NONINVASIVE CARDIOLOGY: Pharmacologic stress was by 10-second iv infusion of 0.4 mg of regadenoson. Radiotracer was injected 30 seconds after start [...] sinus rhythm at rest and no ischemic changes with stress. (Final ECG interpretation and other stress and monitoring data are reported separately by Cardiology.) IMAGING FINDINGS: Study quality is go od. Images obtained after rest and stress injections show normal LV activity. LV and RV volumes appear normal. Gated images obtained at rest and with stress show normal LV wall motion and thickening. LVEF at rest is 69%. LVEF at stress is g reater than 70%. Moderate aortic calcification seen on CT imaging. IMPRESSION: 1. Normal study. 2. Appropriate pharmacologic stress. 3. Normal myocardial perfusion. 4. Normal resting LV function. No deterioration of function is noted with pharmacologic stress. 5. Normal extracardiac tracer distribution. 6. No previous [facility] study for comparison. 7. Moderate aortic calcification seen on CT imaging. NONINVASIVE RISK STRATIFICATION: The above findings are considered low risk (<1% annual mortality rate) based on the following criterion:- Normal or small myocardial perfusion defect at rest or with stress([facility]. 2012;59(9):857-81.) Signed: Maya Puentes MDReport Verified Date/Time: 08/22/2017 14:15:35 Reading Location: [address] Reading Room T3, [id number] 04:47:00* Test Item Value Reference Range Interpretation Comments T3 FREE (BEAKER) (test code = 908) 3.09 pg/mL 1.71-3.71 VITAMIN B12 AND [id number] 04:47:00* Test Item Value Reference Range Interpretation Comments VITAMIN B12 (BEAKER) (test code = 774) 869 pg/mL 213-816 H FOLATE (BEAKER) (test code = 362) 14.3 ng/mL >=7.0 CBC W/PLT COUNT & AUTO [id number] 04:14:00* Test Item Value Reference Range Interpretation Comments WHITE BLOOD CELL COUNT (BEAKER) (test code = 775) 11.5 K/ L 3.5- 10.5 H RED BLOOD CELL COUNT (BEAKER) (test code = 761) 4.97 M/ L 4.63-6 .08 HEMOGLOBIN (BEAKER) (test code = 410) 12.0 GM/DL 13.7-17.5 L HEMATOCRIT (BEAKER) (test code = 411) 40.2 % 40.1-51.0 MEAN CORPUSCULAR VOLUME (BEAKER) (test code = 753) 80.9 fL 79. 0-92.2 MEAN CORPUSCULAR HEMOGLOBIN (BEAKER) (test code = 751) 24.1 pg 25.7-32.2 L MEAN CORPUSCULAR HEMOGLOBIN CONC (BEAKER) (test code = 752) 29.9 GM/DL 32.3-36.5 L RED CELL DISTRIBUTION WIDTH (BEAKER) (test code = 412) 17.5 % 11.6-14.4 H PLATELET COUNT (BEAKER) (test code = 756) 280 K/CU MM 150-450 MEAN PLATELET VOLUME (BEAKER) (test code = 754) 9.2 fL 9.4-12 .4 L NUCLEATED RED BLOOD CELLS (BEAKER) (test code = 413) 0 /100 WBC 0 -0 NEUTROPHILS RELATIVE PERCENT (BEAKER) (test code = 429) 75 % LYMPHOCYTES RELATIVE PERCENT (BEAKER) (test code = 430) 15 % MONOCYTES RELATIVE PERCENT (BEAKER) (test code = 431) 7 % EOSINOPHILS RELATIVE PERCENT (BEAKER) (test code = 432) 1 % BASOPHILS RELATIVE PERCENT (BEAKER) (test code = 437) 1 % NEUTROPHILS ABSOLUTE COUNT (BEAKER) (test code = 670) 8.69 K/ L 1.78-5.38 H LYMPHOCYTES ABSOLUTE COUNT (BEAKER) (test code = 414) 1.72 K/ L 1.32-3.57 MONOCYTES ABSOLUTE COUNT (BEAKER) (test code = 415) 0.79 K/ L 0. 30-0.82 EOSINOPHILS ABSOLUTE COUNT (BEAKER) (test code = 416) 0.16 K/ L 0.04-0.54 BASOPHILS ABSOLUTE COUNT (BEAKER) (test code = 417) 0.07 K/ L 0. 01-0.08 IMMATURE GRANULOCYTES-RELATIVE PERCENT (BEAKER) (test code = 2801) 1 % 0-1 [id number] 04:11:00* Test Item Value Reference Range Interpretation Comments MAGNESIUM (BEAKER) (test code = 627) 1.8 mg/dL 1.6-2.6 Specimen slightly hemolyzed BASIC METABOLIC [id number] 04:11:00* Test Item Value Reference Range Interpretation Comments SODIUM (BEAKER) (test code = 381) 139 meq/L 136-145 POTASSIUM (BEAKER) (test code = 379) 4.3 meq/L 3.5-5.1 Specimen slightly hemolyzed CHLORIDE (BEAKER) (test code = 382) 106 meq/L 98-107 CO2 (BEAKER) (test code = 355) 23 meq/L 22-29 BLOOD UREA NITROGEN (BEAKER) (test code = 354) 18 mg/dL 7-21 CREATININE (BEAKER) (test code = 358) 1.13 mg/dL 0.57-1.25 Specimen slightly hemolyzed GLUCOSE RANDOM (BEAKER) (test code = 652) 100 mg/dL 70-105 CALCIUM (BEAKER) (test code = 697) 8.9 mg/dL 8.4-10.2 EGFR (BEAKER) (test code = 1092) 64 mL/min/1.73 sq m ESTIMATED GFR IS NOT ACCURATE CREATININE CLEARANCE IN PREDICTING GLOMERULAR FILTRATION RATE. ESTIMATED GFR IS NOT APPLICABLE FOR DIALYSIS PATIENTS. LEGIONELLA ANTIGEN, [id number] 23:14:00* Test Item Value Reference Range Interpretation Comments L. PNEUMOPHILA SEROGP 1 UR AG (BEAKER) (test code = 11 56) Negative - see comment Negative for L. pneu mophila serogroup 1 antigen, suggesting no recent or current infection with this serogroup. Legionellosis cannot be ruled out since other serogroups and species may cause disease. STREP PNEUMONIAE [id number] 23:14:00* Test Item Value Reference Range Interpretation Comments STREP PNEUMONIAE ANTIGEN (BEAKER) (test code = 1615) P resumptive negative for pneumococcal pneumonia - see comment Presumptive negative for pneumococcal pneumonia - see commen Presumptive negative for pneumococcal pneumonia, suggesting no current or recent pneumococcal infection. Infection due to S. pneumoniae cannot be ruled out since the antigen present in the sample may be below the detection limit of the test. [id number] 07:10:00* Test Item Value Reference Range Interpretation Comments MAGNESIUM (BEAKER) (test code = 627) 1.8 mg/dL 1.6-2.6 Specimen slightly hemolyzed BASIC METABOLIC [id number] 07:10:00* Test Item Value Reference Range Interpretation Comments SODIUM (BEAKER) (test code = 381) 140 meq/L 136-145 POTASSIUM (BEAKER) (test code = 379) 4.2 meq/L 3.5-5.1 Specimen slightly hemolyzed CHLORIDE (BEAKER) (test code = 382) 107 meq/L 98-107 CO2 (BEAKER) (test code = 355) 24 meq/L 22-29 BLOOD UREA NITROGEN (BEAKER) (test code = 354) 18 mg/dL 7-21 CREATININE (BEAKER) (test code = 358) 1.00 mg/dL 0.57-1.25 Specimen slightly hemolyzed GLUCOSE RANDOM (BEAKER) (test code = 652) 94 mg/dL 70-105 CALCIUM (BEAKER) (test code = 697) 8.4 mg/dL 8.4-10.2 EGFR (BEAKER) (test code = 1092) 73 mL/min/1.73 sq m ESTIMATED GFR IS NOT ACCURATE CREATININE CLEARANCE IN PREDICTING GLOMERULAR FILTRATION RATE. ESTIMATED GFR IS NOT APPLICABLE FOR DIALYSIS PATIENTS. CBC W/PLT COUNT & AUTO [id number] 06:28:00* Test Item Value Reference Range Interpretation Comments WHITE BLOOD CELL COUNT (BEAKER) (test code = 775) 10.8 K/ L 3.5- 10.5 H RED BLOOD CELL COUNT (BEAKER) (test code = 761) 4.99 M/ L 4.63-6 .08 HEMOGLOBIN (BEAKER) (test code = 410) 11.9 GM/DL 13.7-17.5 L HEMATOCRIT (BEAKER) (test code = 411) 40.3 % 40.1-51.0 MEAN CORPUSCULAR VOLUME (BEAKER) (test code = 753) 80.8 fL 79. 0-92.2 MEAN CORPUSCULAR HEMOGLOBIN (BEAKER) (test code = 751) 23.8 pg 25.7-32.2 L MEAN CORPUSCULAR HEMOGLOBIN CONC (BEAKER) (test code = 752) 29.5 GM/DL 32.3-36.5 L RED CELL DISTRIBUTION WIDTH (BEAKER) (test code = 412) 17.9 % 11.6-14.4 H PLATELET COUNT (BEAKER) (test code = 756) 314 K/CU MM 150-450 MEAN PLATELET VOLUME (BEAKER) (test code = 754) 9.9 fL 9.4-12 .4 NUCLEATED RED BLOOD CELLS (BEAKER) (test code = 413) 0 /100 WBC 0 -0 NEUTROPHILS RELATIVE PERCENT (BEAKER) (test code = 429) 73 % LYMPHOCYTES RELATIVE PERCENT (BEAKER) (test code = 430) 16 % MONOCYTES RELATIVE PERCENT (BEAKER) (test code = 431) 8 % EOSINOPHILS RELATIVE PERCENT (BEAKER) (test code = 432) 2 % BASOPHILS RELATIVE PERCENT (BEAKER) (test code = 437) 1 % NEUTROPHILS ABSOLUTE COUNT (BEAKER) (test code = 670) 7.86 K/ L 1.78-5.38 H LYMPHOCYTES ABSOLUTE COUNT (BEAKER) (test code = 414) 1.73 K/ L 1.32-3.57 MONOCYTES ABSOLUTE COUNT (BEAKER) (test code = 415) 0.87 K/ L 0. 30-0.82 H EOSINOPHILS ABSOLUTE COUNT (BEAKER) (test code = 416) 0.17 K/ L 0.04-0.54 BASOPHILS ABSOLUTE COUNT (BEAKER) (test code = 417) 0.08 K/ L 0. 01-0.08 IMMATURE GRANULOCYTES-RELATIVE PERCENT (BEAKER) (test code = 2801) 1 % 0-1 U/S, RENAL, [id number] 23:50:00Reason for exam:->renal insufficiency FINAL REPORT EXAM: [...] uropathy or abnormal renal cortical echogenicity. Signed: Evangelista Grider MDReport Verified Date/Time: 08/20/2017 23:50:19 Reading Location: [address] Reading Room - GLUCOSE [id number] 22:36:00* Test Item Value Reference Range Interpretation Comments POC-GLUCOSE METER (BEAKER) (test code = 1538) 106 mg/dL 70-110 TESTED AT [facility] [address] [facility] [address] T4, [id number] 19:01:00* Test Item Value Reference Range Interpretation Comments FREE T4 (BEAKER) (test code = 655) 0.77 ng/dL 0.70-1.48 TSH/FREE T4 IF [id number] 18:17:00* Test Item Value Reference Range Interpretation Comments THYROID STIMULATING HORMONE (BEAKER) (test code = 772) 0.04 uIU/mL 0.35-4.[address], CHEST, WITHOUT [id number] 18:14:00FINAL REPORT TECHNIQUE: CT scan of the chest WITHOUT intravenous contrast. Dose modulation, iterative reconstruction, and/or weight-based adjustment of the mA/kV was utilized to reduce the radiation dose to as low as reasonably achievable. INDICATION: 72-year-old man with dyspnea. COMPARISON: Chest radiograph from earlier same date. FINDINGS: ABSENCE OF INTRAVENOUS CONTRAST DECREASES SENSITIVITY FOR DETECTION OF FOCAL LESIONS AND VASCULAR PATHOLOGY. L RICKIE/TUBES: None. LUNGS AND AIRWAYS: Central airways are [...] Verified Date/T yoselin: 08/20/2017 18:14:16 Reading Location: [facility] C0Y CT Body Reading Room [id number] 07:11:00* Test Item Value Reference Range Interpretation Comments D-DIMER QUANTITATIVE (BEAKER) (test code = 671) 1.49 MG/L FEU <0.50 H Intended Use: The D-Dimer Assay can be used to aid in the diagnosis of Deep Vein Thrombosis (DVT) and Pulmonary Embolism Disease (PED).In patients with low pre- test probability, various studies concerning STA Liatest D-dimer test have repor mary kate that with a cutoff value of 0.50 MG/L FEU, the Negative Predictive Value (PUBLISHING SYSTEMS ANALYST V) regarding the exclusion of thrombosis is within 95-100% range.COMPREHENSIVE METABOLIC [id number] 05:52:00* Test Item Value Reference Range Interpretation Comments TOTAL PROTEIN (BEAKER) (test code = 770) 7.9 gm/dL 6.0-8.3 ALBUMIN (BEAKER) (test code = 1145) 3.6 g/dL 3.5-5.0 ALKALINE PHOSPHATASE (BEAKER) (test code = 346) 67 U/L 40-150 BILIRUBIN TOTAL (BEAKER) (test code = 377) 0.4 mg/dL 0.2-1.2 SODIUM (BEAKER) (test code = 381) 141 meq/L 136-145 POTASSIUM (BEAKER) (test code = 379) 5.4 meq/L 3.5-5.1 H CHLORIDE (BEAKER) (test code = 382) 107 meq/L 98-107 CO2 (BEAKER) (test code = 355) 23 meq/L 22-29 BLOOD UREA NITROGEN (BEAKER) (test code = 354) 21 mg/dL 7-21 CREATININE (BEAKER) (test code = 358) 1.42 mg/dL 0.57-1.25 H GLUCOSE RANDOM (BEAKER) (test code = 652) 109 mg/dL 70-105 H CALCIUM (BEAKER) (test code = 697) 9.5 mg/dL 8.4-10.2 AST (SGOT) (BEAKER) (test code = 353) 36 U/L 5-34 H ALT (SGPT) (BEAKER) (test code = 347) 41 U/L 6-55 EGFR (BEAKER) (test code = 1092) 49 mL/min/1.73 sq m ESTIMATED GFR IS NOT ACCURATE CREATININE CLEARANCE IN PREDICTING GLOMERULAR FILTRATION RATE. ESTIMATED GFR IS NOT APPLICABLE FOR DIALYSIS PATIENTS. CREATINE KINASE (CK), TOTAL AND [id number] 02:43:00* Test Item Value Reference Range Interpretation Comments CREATINE KINASE TOTAL (BEAKER) (test code = 380) 72 U/L 29-20 0 CREATINE KINASE-MB (NIKKI) (test code = 750) 3.5 ng/mL 0.0-6.6 CREATINE KINASE-MB INDEX (NIKKI) (test code = 395) 4.9 % CK-MB Reference Range:<6.7 Normal6.7-10.0 Borderline>10.0 Abnormal TROPONIN [id number] 02:43:00* Test Item Value Reference Range Interpretation Comments TROPONIN I (NIKKI) (test code = 397) 0.02 ng/mL 0.00-0.03 Troponin I (TnI) levels must be interpreted in the context of the presenting sym ptoms and the clinical findings. Elevated TnI levels indicate myocardial damage, but are not specific for ischemic heart disease. Elevated TnI levels are seen in patients with other cardiac conditions (including myocarditis and congestive h eart failure), and slight TnI elevations occur in patients with other conditions , including sepsis, renal failure, acidosis, acute neurological disease, and per sistent tachyarrhythmia.B-TYPE NATRIURETIC FACTOR (BNP)2017-08-20 02:43:00* Test Item Value Reference Range Interpretation Comments B-TYPE NATRIURETIC PEPTIDE (NIKKI) (test code = 700) 137 pg/mL 0-100 H RAD, CHEST, 2 [id number] 02:33:00Reason for exam:->SHORTNESS OF BREATHFINAL REPORT Examination: [...] edema. There is no acute bony abnormality. Gastric banding hardware is partially visualized. Signed: Tyra Bourgeois MDReport Verif ied Date/Time: 08/20/2017 02:33:24 Reading Location: [address] 02: 33 AM CBC W/PLT COUNT & AUTO [id number] 02:32:00* Test Item Value Reference Range Interpretation Comments WHITE BLOOD CELL COUNT (BEAKER) (test code = 775) 14.1 K/ L 3.5- 10.5 H RED BLOOD CELL COUNT (BEAKER) (test code = 761) 5.36 M/ L 4.63-6 .08 HEMOGLOBIN (BEAKER) (test code = 410) 13.0 GM/DL 13.7-17.5 L HEMATOCRIT (BEAKER) (test code = 411) 43.5 % 40.1-51.0 MEAN CORPUSCULAR VOLUME (BEAKER) (test code = 753) 81.2 fL 79. 0-92.2 MEAN CORPUSCULAR HEMOGLOBIN (BEAKER) (test code = 751) 24.3 pg 25.7-32.2 L MEAN CORPUSCULAR HEMOGLOBIN CONC (BEAKER) (test code = 752) 29.9 GM/DL 32.3-36.5 L RED CELL DISTRIBUTION WIDTH (BEAKER) (test code = 412) 18.2 % 11.6-14.4 H PLATELET COUNT (BEAKER) (test code = 756) 321 K/CU MM 150-450 MEAN PLATELET VOLUME (BEAKER) (test code = 754) 9.4 fL 9.4-12 .4 NUCLEATED RED BLOOD CELLS (BEAKER) (test code = 413) 0 /100 WBC 0 -0 NEUTROPHILS RELATIVE PERCENT (BEAKER) (test code = 429) 76 % LYMPHOCYTES RELATIVE PERCENT (BEAKER) (test code = 430) 15 % MONOCYTES RELATIVE PERCENT (BEAKER) (test code = 431) 6 % EOSINOPHILS RELATIVE PERCENT (BEAKER) (test code = 432) 1 % BASOPHILS RELATIVE PERCENT (BEAKER) (test code = 437) 1 % NEUTROPHILS ABSOLUTE COUNT (BEAKER) (test code = 670) 10.70 K/ L 1.78-5.38 H LYMPHOCYTES ABSOLUTE COUNT (BEAKER) (test code = 414) 2.09 K/ L 1.32-3.57 MONOCYTES ABSOLUTE COUNT (BEAKER) (test code = 415) 0.88 K/ L 0. 30-0.82 H EOSINOPHILS ABSOLUTE COUNT (BEAKER) (test code = 416) 0.19 K/ L 0.04-0.54 BASOPHILS ABSOLUTE COUNT (BEAKER) (test code = 417) 0.11 K/ L 0. 01-0.08 H IMMATURE GRANULOCYTES-RELATIVE PERCENT (BEAKER) (test code = 2801) 1 % 0-1 PT/[id number] 02:31:00* Test Item Value Reference Range Interpretation Comments PROTIME (BEAKER) (test code = 759) 13.0 seconds 11.7-14.7 INR (BEAKER) (test code = 370) 1.0 <=5.9 PARTIAL THROMBOPLASTIN TIME (BEAKER) (test code = 760) 29.4 seconds 22.5-36.0 RECOMMENDED COUMADIN/WARFARIN INR THERAPY RANGESSTANDARD DOSE: 2.0 - 3.0 Inclu marisol: PROPHYLAXIS for venous thrombosis, systemic embolization; TREATMENT for gisel ous thrombosis and/or pulmonary embolus.HIGH RISK: Target INR is 2.5-3.5 for pat ients with mechanical heart valves.CHEM SZYOQ3927-66-75 06:16:0038.0[facility] OkictoyXVROPFGEACRD5859-13-19 06:16:0028[facility] KwsktjhWFKATUNDJEJL3482-12-73 06:16:004.5[facility] AbsadjkAJYJBJRLTGGU5822-12-90 06:16:30874Pgxfnqfn [place] EYYEMUPYZPFS6697-91-36 06:16:0018[facility] YbqwuxnDLFMGVLHEQAI4675-97-33 06:16:00 160[facility] LrqhbjdAQMTPJGHCEPK2116-78-30 06:16:008.3[facility] RFZVYLGSFKFI2756-96-92 06:16:0063[facility] VrjdagnOJOAIDEQXMQO6495-37-91 06:16:00 139[facility] ZeiesdqGKSDYARBUVAP8110-02-95 06:16:001.15[facility] QMGJONVVIANK4393-31-32 06:16:0012.5[facility] YlpdkaqSXAGVBCTWC0685-25-78 06:16:00 0.1[facility] LemfintIJWWWNYARJ7812-72-74 06:16:000.1[facility]annHEMATOLOGY 2017-08-14 06:16:0077.6[facility] EtmtmuxJVTVJHHQGN0918-13-54 06:16:008.7[facility] QtaohodNWSOAZTFKM3268-01-86 06:16:000.7[facility] GdvsufbHDYTQSHSDO1158-19-31 06:16:001.6[facility] KndlxdaEZHPAUALHY1333-29-43 06:16:0014.3[facility] SWUBVRDCEK0311-97-91 06:16:006.4[facility] KtbtblgLJEBITSHVC2576-12-89 06:16:001.1 [facility] TvjvblvJWCRAHYPFW8274-45-89 06:16:000.6[facility]annHEMATOLOGY 2017-08-14 06:16:0039.6[facility] VxyghugYNOPVXKAFQ3987-02-51 06:16:00* Test Item Value Reference Range Interpretation Comments MCH (test code = MCH) 26.2 pg 27.0-31.0 [facility] UfnxddrORCAYKTCFW1932-81-55 06:16:0079.6[facility] HermannHEMATOLOGY 2017-08-14 06:16:0018.8[facility] NfcmrruHAGYYXADBW5973-55-93 06:16:0032.9[facility] CcyrqmkBILMWFPIFK0192-00-33 06:16:86082Rmpeplif FaegysfFHNBZRBVNY3722-88-80 06:16:008.2[facility] VclofhpFAVCTRJDQC9373-07-04 06:16:0011.1[facility] NNPIVDXAAF7702-71-10 06:16:004.97[facility] WerdhxdNWGYKWCFJL6653-60-63 06:16:00 13.0[facility] HermannCHEM DRMFX2353-17-13 16:15:001.4[facility] HermannDRUG SCREEN 2017-08-13 16:15:00Negative *NA*(08/13/17 10:15 AM)[facility]annDRUG SCREEN 2017-08-13 16:15:00See Note (08/13/17 10:15 AM)[facility]annDRUG SCREEN 2017-08-13 16:15:00Negative *NA*(08/13/17 10:15 AM)[facility]annDRUG SCREEN 2017-08-13 16:15:00Positive *ABN*(08/13/17 10:15 AM)[facility]annDRUG SCREEN 2017-08-13 16:15:00Negative *NA*(08/13/17 10:15 AM)[facility]annDRUG SCREEN 2017-08-13 16:15:00Negative *NA*(08/13/17 10:15 AM)[facility]annDRUG SCREEN 2017-08-13 16:15:00Negative *NA*(08/13/17 10:15 AM)[facility]annDRUG SCREEN 2017-08-13 16:15:00Negative *NA*(08/13/17 10:15 AM)[facility]annURINE AND STOOL 2017-08-13 16:15:00None Seen (08/13/17 10:15 AM)[facility] STOOL 2017-08-13 16:15:00None Seen (08/13/17 10:15 AM)[facility] STOOL 2017-08-13 16:15:00None Seen (08/13/17 10:15 AM)[facility] STOOL 2017-08-13 16:15:00None Seen (08/13/17 10:15 AM)[facility] STOOL 2017-08-13 16:15:000.2[facility]annUR[facility] AND ZJZMX8657-25-08 16:15:00Negative *NA*(08/13/17 10:15 AM)[facility] MGDGN0597-79-01 16:15:00Negative (08/13/17 10:15 AM)[facility] LTNSJ2086-37-68 16:15:00Negative (08/13/17 10:15 AM)[facility] XBFEV7897-77-33 16:15:00Negative (08/13/17 10:15 AM)[facility] WEDNC5388-32-75 16:15:00* Test Item Value Reference Range Interpretation Comments UA Spec Grav (test code = UA Spec Grav) 1.020 1 [facility] IBHLZ7430-84-45 16:15:00Clear (08/13/17 10:15 AM) [facility] ZZDTX8589-09-18 16:15:00Yellow *NA*(08/13/17 10:15 AM) [facility] XLPPG8202-10-71 16:15:00* Test Item Value Reference Range Interpretation Comments UA pH (test code = UA pH) 6.0 1 5.0-8.0 [facility] NQQXVTQ2397-63-07 11:20:00Negative (08/13/17 5:20 AM) [facility]annCHEM HNBKJ9599-58-01 11:18:002.2[facility] HermannELECTROLYTES 2017-08-13 11:18:0014.3[facility] BoroirjEIAHNOYPWLKV8482-60-13 11:18:0061[facility] KpodxhoXGSZWCAJVDSM5253-19-78 11:18:008.9[facility] ZtpkkyzRBLQZKACQFTZ0128-12-45 11:18:21503Rmtfayfw TzrwrxbSWBVABBGEXNS5047-13-23 11:18:0025[facility] QXTLFICDTOYE8368-70-50 11:18:001.19[facility] FznolcsYTMYOKGFLFJR9104-39-60 11:18:0021[facility] MvhqacjFSKWLVIVSPWE6554-51-90 11:18:91190Eqtagget [place] HHXLLTELHTBL4431-97-40 11:18:004.3[facility] YpproltSDUSSLXRYDVS8973-48-85 11:18:59579Mkngoizb IfhwucrMPTFIFLIME9713-45-54 11:18:0081.5[facility] JNAVCHNWEE9706-55-46 11:18:006.6[facility] AmdcisbZTGAVNQXMW5698-43-57 11:18:00 10.8[facility] VymxzsmWJSIFICFNZ1486-70-01 11:18:0013.2[facility] HermannHEMATOLOGY 2017-08-13 11:18:000.5[facility] KhhbednBMBBKIADEK1092-57-90 11:18:000.6[facility] RbloeouGGPHNQIXVU2164-35-48 11:18:001.1[facility] OylhqmwEMZKAOTMCT0147-52-65 11:18:000.1[facility] QsldateUVDTETULVB8295-64-21 11:18:001.8[facility] GYMOKJUVKY5253-21-14 11:18:000.1[facility] TamgchzHEDLBTSQLQ0327-17-12 11:18:001+ *ABN*(08/13/17 5:18 AM)[facility] XbydrdzWSWKKSQGOA1975-26-87 11:18:00* Test Item Value Reference Range Interpretation Comments Max Amplitude Rapid (test code = Max Amplitude Rapid) 73 mm 52-71 [facility] OaxnyruHKMOYFTWPP0243-37-44 11:18:0013.5[facility] HermannHEMATOLOGY 2017-08-13 11:18:000.9[facility] IncotllRBWIUBBPVL5215-60-47 11:18:00* Test Item Value Reference Range Interpretation Comments Angle Rapid (test code = Angle Rapid) 80 degrees 64-80 [facility] MaxvqshVQDRSILFPD8290-18-66 11:18:00* Test Item Value Reference Range Interpretation Comments R-time Rapid (test code = R-time Rapid) 0.8 min 0.4-0.7 [facility] ZgxcslkDLWPHDDPUW0982-40-43 11:18:00* Test Item Value Reference Range Interpretation Comments K-time Rapid (test code = K-time Rapid) 0.8 min 0.6-2.3 [facility]it[facility]wnJEKTIHBWPB1725-14-67 11:18:00* Test Item Value Reference Range Interpretation Comments ACT (TEG) Rapid (test code = ACT (TEG) Rapid) 121 s 86-118 [facility] TrrzyedUFGAESNJBP4338-76-73 11:18:00* Test Item Value Reference Range Interpretation Comments [place] Rapid (test code = [place] Rapid) 0.[address] [facility] VhqnsgwKKIXHOVYSI8038-52-95 11:18:0077.8[facility] HermannHEMATOLOGY 2017-08-13 11:18:0044.0[facility] SbbnrjiPSFPTPIKPV7916-75-75 11:18:0016.3[facility] KtxjxfoQRNKJOMOUC0123-68-98 11:18:005.66[facility] TqudrsjSLYVAMQXOZ0031-90-00 11:18:0013.7[facility] OlhphrzPCCLTPRKVR1431-67-51 11:18:007.7[facility] XHCEEUGBOA6208-38-62 11:18:54985Rtqbiaao TldvcpqXANXGGFIQY3441-64-36 11:18:00 18.6[facility] WydipgaAQYMULSBGA4524-77-55 11:18:0031.2[facility] HermannHEMATOLOGY 2017-08-13 11:18:00* Test Item Value Reference Range Interpretation Comments MCH (test code = MCH) 24.3 pg 27.0-31.0 [facility] HospitalLzwqgkjRFSYQYRQLX2370-46-50 11:18:0073[facility]TOXICOLOGY 2017-08-13 11:18:000.073[facility] HermannLIPID EXYKB6517-74-70 11:13:00* Test Item Value Reference Range Interpretation Comments TRIGLYCERIDES (BEAKER) (test code = 540) 61 mg/dL CHOLESTEROL (BEAKER) (test code = 631) 225 mg/dL HDL CHOLESTEROL (BEAKER) (test code = 976) 58 mg/dL LDL CHOLESTEROL CALCULATED (BEAKER) (test code = 633) 155 mg/dL Triglyceride Reference Range: Low Risk <150 Borderline 150-199 High Risk 200-499 Very High Risk >=500Cholesterol Reference Range: Low Risk <200 Borderline 200-239 High Risk >240HDL Cholesterol Reference Range: Low Risk >=60 High Risk <40LDL Cholesterol Reference Range: Optimal <100 Near Optimal 100-129 Borderline 130-159 High 160-189 Very High >=190 BASIC METABOLIC VMFNM4146-46-80 11:13:00* Test Item Value Reference Range Interpretation Comments SODIUM (BEAKER) (test code = 381) 143 meq/L 136-145 POTASSIUM (BEAKER) (test code = 379) 5.5 meq/L 3.5-5.1 H CHLORIDE (BEAKER) (test code = 382) 105 meq/L 98-107 CO2 (BEAKER) (test code = 355) 26 meq/L 22-29 BLOOD UREA NITROGEN (BEAKER) (test code = 354) 16 mg/dL 7-21 CREATININE (BEAKER) (test code = 358) 1.12 mg/dL 0.57-1.25 GLUCOSE RANDOM (BEAKER) (test code = 652) 93 mg/dL 70-105 CALCIUM (BEAKER) (test code = 697) 10.0 mg/dL 8.4-10.2 EGFR (BEAKER) (test code = 1092) 65 mL/min/1.73 sq m ESTIMATED GFR IS NOT ACCURATE CREATININE CLEARANCE IN PREDICTING GLOMERULAR FILTRATION RATE. ESTIMATED GFR IS NOT APPLICABLE FOR DIALYSIS PATIENTS. HEPATIC FUNCTION ENMNW2404-00-32 11:13:00* Test Item Value Reference Range Interpretation Comments TOTAL PROTEIN (BEAKER) (test code = 770) 8.2 gm/dL 6.0-8.3 ALBUMIN (BEAKER) (test code = 1145) 4.2 g/dL 3.5-5.0 BILIRUBIN TOTAL (BEAKER) (test code = 377) 0.7 mg/dL 0.2-1.2 BILIRUBIN DIRECT (BEAKER) (test code = 706) 0.3 mg/dL 0.1-0.5 ALKALINE PHOSPHATASE (BEAKER) (test code = 346) 65 U/L 40-150 AST (SGOT) (BEAKER) (test code = 353) 31 U/L 5-34 ALT (SGPT) (BEAKER) (test code = 347) 26 U/L 6-55 CBC W/PLT COUNT & AUTO SUKXUQHNWCZZ1337-08-73 11:01:00* Test Item Value Reference Range Interpretation Comments WHITE BLOOD CELL COUNT (BEAKER) (test code = 775) 12.2 K/ L 4.0- 10.0 H RED BLOOD CELL COUNT (BEAKER) (test code = 761) 5.51 M/ L 4.20-5 .80 HEMOGLOBIN (BEAKER) (test code = 410) 15.3 GM/DL 13.0-16.8 HEMATOCRIT (BEAKER) (test code = 411) 50.4 % 40.0-50.0 H MEAN CORPUSCULAR VOLUME (BEAKER) (test code = 753) 91.5 fL 82. 0-98.0 MEAN CORPUSCULAR HEMOGLOBIN (BEAKER) (test code = 751) 27.7 pg 27.0-33.0 MEAN CORPUSCULAR HEMOGLOBIN CONC (BEAKER) (test code = 752) 30.3 GM/DL 32.0-36.0 L RED CELL DISTRIBUTION WIDTH (BEAKER) (test code = 412) 14.3 % 10.3-14.2 H PLATELET COUNT (BEAKER) (test code = 756) 294 K/CU MM 150-430 MEAN PLATELET VOLUME (BEAKER) (test code = 754) 7.3 fL 6.5-10 .5 NUCLEATED RED BLOOD CELLS (BEAKER) (test code = 413) 0 /100 WBC 0 -0 NEUTROPHILS RELATIVE PERCENT (BEAKER) (test code = 429) 74 % LYMPHOCYTES RELATIVE PERCENT (BEAKER) (test code = 430) 17 % MONOCYTES RELATIVE PERCENT (BEAKER) (test code = 431) 6 % EOSINOPHILS RELATIVE PERCENT (BEAKER) (test code = 432) 2 % BASOPHILS RELATIVE PERCENT (BEAKER) (test code = 437) 1 % NEUTROPHILS ABSOLUTE COUNT (BEAKER) (test code = 670) 8.98 K/ L 1.80-8.00 H LYMPHOCYTES ABSOLUTE COUNT (BEAKER) (test code = 414) 2.01 K/ L 1.48-4.50 MONOCYTES ABSOLUTE COUNT (BEAKER) (test code = 415) 0.79 K/ L 0. 00-1.30 EOSINOPHILS ABSOLUTE COUNT (BEAKER) (test code = 416) 0.30 K/ L 0.00-0.50 BASOPHILS ABSOLUTE COUNT (BEAKER) (test code = 417) 0.09 K/ L 0. 00-0.20 0.98VODLBXRTQFSU0565-12-02 10:03:0012.4[facility] QhglbktHMMTLTRXXJLU8761-95-81 10:03:0084[facility] MunlppwNUYWWFQGOYOY3278-25-73 10:03:008.9[facility] GIBCSWQPMNYQ9789-50-09 10:03:0025[facility] NalwphzGAQXEJVOTBBB3107-52-42 10:03:00 102[facility] WzkkfhxMCGHCCCFNSDN2589-03-54 10:03:004.4[facility] BUGBUMWLDJQW1993-43-24 10:03:00239Iaapbkmq PiykapcIJJTHOOFNVOP1257-42-89 10:03:000.91[facility] ThpmpimIUVEDSYGCHRV3726-60-17 10:03:0025[facility] BPVONFPQBOOZ4711-17-16 10:03:10221Vekhhldq WibroctJBGTKZTUBU3417-10-59 10:03:00 4.08[facility] RykgkxpZENDCOZKEK2218-80-06 10:03:008.5[facility] HermannHEMATOLOGY 2016-10-09 10:03:0036.6[facility] VyucqjpKUWFTMYJMW1741-71-43 10:03:0012.3[facility] VucalhzAXEZWXCLVV2022-30-19 10:03:0089.7[facility] MgmovteILEXHTAMXN7116-46-99 10:03:00* Test Item Value Reference Range Interpretation Comments MCH (test code = MCH) 30.1 pg 27.0-31.0 [facility] PujrvgyLXVVLWUZLJ7853-76-77 10:03:0016.0[facility] HermannHEMATOLOGY 2016-10-09 10:03:0033.5[facility] BqefrrvAFJPPCJZGL8198-48-07 10:03:008.6[facility] UmrbqbrJJWZDTKGWW9780-72-89 10:03:44145Invtkrra HermannCHEM XPQHC9496-06-90 14:24:0063[facility] HermannCHEM EWDKR0919-91-88 14:24:0099[facility] HermannCHEM AKEIA7760-85-17 14:24:004.0[facility] HermannCHEM WDQZU0936-79-70 14:24:0013.0 [facility] HermannCHEM KMROI0509-40-93 14:24:0025[facility] HermannCHEM PANEL 2016-10-08 14:24:008.2[facility] HermannCHEM ITIRD3010-79-48 14:24:45490Bbpkcytb HermannCHEM QCVMQ7029-67-07 14:24:0036[facility] HermannCHEM CNSZO3013-97-18 14:24:62380Rkhhkqmm HermannCHEM DZSTE7645-54-32 14:24:001.16[facility] RYFVNQRZJK3188-20-51 14:24:0080.4[facility] JsujktfOFPRQEUKHB2703-95-47 14:24:00 10.3[facility] PiadtchTYLINPQGHF4164-73-68 14:24:000.2[facility] HermannHEMATOLOGY 2016-10-08 14:24:000.6[facility] NzfvhbfRMNMBSFLNO3978-02-22 14:24:001.0[facility] TojfcwqBLRNGGWQQH3313-17-46 14:24:007.4[facility] IdcbijpSROBBNDPBE0135-26-05 14:24:000.3[facility] NthufjoVUPDDNTMLT1175-34-40 14:24:002.7[facility] CNQXXABNKY3385-31-22 14:24:006.3[facility] XbpiyhzDCOLKBPLYR1393-18-98 14:24:008.4 [facility] TsgumknOTCLUYNQQB1544-03-35 14:24:91418Mbxgzqrj HermannHEMATOLOGY 2016-10-08 14:24:0016.2[facility] LbodvynGBGJJDOQMJ1837-97-92 14:24:0033.1[facility] HuxrdcaQFLZGVXGQQ6608-47-22 14:24:00* Test Item Value Reference Range Interpretation Comments MCH (test code = MCH) 29.9 pg 27.0-31.0 [facility] VnlsrhnLRHMDZBSFG3281-81-10 14:24:0090.4[facility] HermannHEMATOLOGY 2016-10-08 14:24:0012.2[facility] KisbuckRJURLLWIMS4214-74-96 14:24:0036.8[facility] XxehpenJTJRFRDBTY6582-59-37 14:24:009.2[facility] CbzswaaBTVULAFKYQ3418-75-52 14:24:004.07[facility] TdwgibdVIOJKJQVMW3171-26-19 23:52:008.8[facility] FUSCPKKGKP5314-06-37 23:52:53931Kfsfbkvr GvgzhojAKPHMQQJOI6243-16-75 23:52:00* Test Item Value Reference Range Interpretation Comments MCH (test code = MCH) 29.1 pg 27.0-31.0 [facility] RdqclzgDLLGZHCXLO3121-51-49 23:52:0091.1[facility] HermannHEMATOLOGY 2016-10-07 23:52:0012.9[facility] HcgkdkaQWYTINIHSL7685-89-40 23:52:0016.2[facility] VycfzjlEJRYGBDAGI9283-84-74 23:52:0032.0[facility] HgoplpyTYZKJWBHMN8344-70-79 23:52:004.07[facility] QhkvdkgALZQJFBUXY2172-36-69 23:52:0037.0[facility] JPPVADSYUY7177-21-05 23:52:0011.8[facility] AlhigkaALPSEZXITGRU5873-95-46 16:33:00 11.5[facility] UwgunoqYZLGSKVMLXYR1766-57-67 16:33:0044[facility] RJNSDYQCLOCO0121-49-49 16:33:008.1[facility] NnldddaPIUKFWHTUKOY2402-09-14 16:33:0026[facility] BkflvggLVMQBWBQSDTI8020-88-36 16:33:10446Wbtmhavw [place] YWDJZGDXKQIH1601-80-91 16:33:50716Pntaqdkj EzdnfhbQBDXDHLVDGJC6362-45-53 16:33:004.5[facility] UwxzwzuUOFSKCDBVLLS4017-97-57 16:33:001.55[facility] SNSOYMSATVAC8308-04-90 16:33:0037[facility] XxyllgoHNZGMPBUEKEK8002-39-42 16:33:00 144[facility] QuokypfCYFLAULOZX2724-07-24 16:33:002.3[facility] HermannHEMATOLOGY 2016-10-07 16:33:000.4[facility] OfrhhogHIAVWPTOQL9795-42-21 16:33:0010.4[facility] ZcbsydoOAAAPXULHR4598-56-48 16:33:001.0[facility] SnmdalsNILEMLAAAX3081-04-19 16:33:000.3[facility] QaqhyvgIOEPWYATNZ0772-40-68 16:33:001.3[facility] PKDPRRTCLK2888-64-69 16:33:009.9[facility] YlnzmdnHOCWMJKXVI7793-21-13 16:33:008.0 [facility] SvkcvgjKWSINIDWUR7358-33-53 16:33:0079.4[facility]annHEMATOLOGY 2016-10-06 10:35:000.8[facility] SpldhrrRFEFFYDZZR1001-95-08 10:35:001.2[facility] PcavvtbKYGFGFFFTK5975-11-24 10:35:008.7[facility] MddfzqvBQULBWAYER1680-27-89 10:35:006.0[facility] JlfasumLBEWOKKUEN8074-54-32 10:35:0012.1[facility] CSKJPMEOVT0819-54-70 10:35:000.1[facility] GpzhpypGIOXYANJKM3960-81-90 10:35:00 85.2[facility] HermannCHEM CKBXF2196-28-55 12:47:0020[facility] HermannCHEM PANEL 2016-10-05 12:47:000.9[facility] HermannCHEM RGAMZ0634-08-94 12:47:003.9[facility] HermannCHEM UJPHN9873-54-05 12:47:007.6[facility] HermannCHEM KRVKM1793-31-82 12:47:003.7[facility] HermannCHEM SQYBF7854-35-00 12:47:0028[facility] HermannCHEM WUQSF0342-69-30 12:47:0018[facility] HermannCHEM QDERC4700-49-85 12:47:0059 [facility] HermannCHEM FWHHM1845-15-58 12:47:000.4[facility] HermannHEMATOLOGY 2016-10-05 12:47:001.05[facility] AbrdybiBQJYIIVMDU5714-26-10 12:47:00* Test Item Value Reference Range Interpretation Comments PTT (test code = PTT) 27.8 s 22.9-35.8 [facility]mgbasiDXAKYIIKBO1308-51-01 12:47:00* Test Item Value Reference Range Interpretation Comments PT (test code = PT) 13.9 s 12.0-14.7 [facility] HospitalFymqkwfSTPMFJJCBS0700-22-06 12:47:006.1[facility]annHEMATOLOGY 2016-10-05 12:47:005.6[facility] NlrjehjVRGPZBNPVZ3026-56-19 12:47:00* Test Item Value Reference Range Interpretation Comments Max Amp (test code = Max Amp) 54.9 mm 50.0-70.0 [facility] HospitalVyozzrrKBYNBKQGAM0375-93-60 12:47:001.4[facility]annHEMATOLOGY 2016-10-05 12:47:00See Note (10/05/16 6:47 AM)[facility]HE[facility] 2016-10-05 12:47:00* Test Item Value Reference Range Interpretation Comments Angle (test code = Angle) 69.9 degrees 53.0-72.0 [facility] HospitalSxkenvoMQXAVTHEDM9321-80-61 12:47:00* Test Item Value Reference Range Interpretation Comments R-time (test code = R-time) 3.4 min 5.0-10.0 [facility] HospitalHacquwxYODIDNAJLG7076-41-60 12:47:00* Test Item Value Reference Range Interpretation Comments K-time (test code = K-time) 1.5 min 1.0-3.0 [facility] EygnugpGKTGNJCUUP2265-93-39 21:25:003.0[facility] HermannHEMATOLOGY 2016-09-27 21:25:00* Test Item Value Reference Range Interpretation Comments Angle (test code = Angle) 55.6 degrees 53.0-72.0 [facility] RvhorqrGLGIYYZOOD2989-74-07 21:25:00* Test Item Value Reference Range Interpretation Comments Max Amp (test code = Max Amp) 37.7 mm 50.0-70.0 [facility] YmhrostMATQBGPUDO8525-35-70 21:25:00* Test Item Value Reference Range Interpretation Comments K-time (test code = K-time) 2.8 min 1.0-3.0 [facility] MfxwanyFAZAVPTJDJ2324-16-12 21:25:00* Test Item Value Reference Range Interpretation Comments R-time (test code = R-time) 10.2 min 5.0-10.0 [facility] XwvkhasZNCKRDJAHC7186-68-77 21:25:0028.9[facility] HermannHEMATOLOGY 2016-09-27 21:25:00-6.6[facility] CjgyvprEEZVZOMKSA0861-00-53 21:25:00See Note (09/27/16 3:25 PM)[facility] HermannCHEM KGCOV5628-48-14 21:00:004.0[facility] HermannCHEM NBJJH6651-81-09 21:00:0016[facility] HermannCHEM IAFQC0321-63-32 21:00:001.1[facility] HermannCHEM XVCNZ4031-26-39 21:00:008.5[facility] HermannCHEM AMBIO5823-90-39 21:00:0042[facility] HermannCHEM OOHUZ6159-26-69 21:00:004.5 [facility] HermannCHEM SMXRJ3395-49-44 21:00:000.6[facility] HermannCHEM PANEL 2016-09-27 21:00:0072[facility] HermannCHEM PCGGI8029-31-87 21:00:0028[facility] EoqmrauFGGQMMUEML9836-53-12 21:00:002.36[facility] RfkkhbyPFXOVAKOIF2736-28-82 21:00:00* Test Item Value Reference Range Interpretation Comments PTT (test code = PTT) 42.1 s 22.9-35.8 [facility] JrscnbqHDTOVPTDQN6136-41-17 21:00:00* Test Item Value Reference Range Interpretation Comments PT (test code = PT) 26.2 s 12.0-14.7 [facility] MrnyhvxWBKWTRRCAA0476-29-32 21:00:000.1[facility] HermannHEMATOLOGY 2016-09-27 21:00:000.3[facility] EmkuqmrTEQZUTVOES2922-35-48 21:00:003.2[facility] HermannCHEM MVPNE9379-67-80 10:32:002.0[facility] HermannCHEM VSPEE1028-79-17 10:32:0091[facility] HermannCHEM JIYWT2835-30-14 10:32:75807Vcovyzbz HermannCHEM EXJOU7924-33-27 10:32:000.78[facility] HermannCHEM VHKYG6274-69-25 10:32:008 [facility] HermannCHEM OCSFR0061-77-93 10:32:0060[facility] HermannCHEM PANEL 2016-09-12 10:32:0014.9[facility] HermannCHEM ZNRAP3000-02-61 10:32:008.4[facility] HermannCHEM BRBSQ6688-91-63 10:32:003.9[facility] HermannCHEM QAODT4881-63-24 10:32:0025[facility] HermannCHEM ZGGFD6553-39-61 10:32:34405Pzqwkgyb HermannCHEM IGOTY3159-48-41 11:07:002.8[facility]annCHEM UAYOD8134-65-47 11:07:001.7 [facility] DcxdmhmRHXRJVAGAQEI3841-92-82 11:07:58971Rwxfysuy HermannELECTROLYTES 2016-09-10 11:07:0011[facility] KhniyqnAUKYPZBEAOQM2790-28-29 11:07:000.77[facility] GqniqpwPNEFMYQGMQBV6909-70-30 11:07:0060[facility] OanrxfsQYGKHOLOBPTZ4088-48-76 11:07:0091[facility] YjewnawSHSENLEIQACU1668-37-36 11:07:0024[facility] RDXYKTARRGGL2843-02-45 11:07:007.9[facility] DebxiurVKFCYUYOUZGA8985-22-16 11:07:004.3[facility] JkdckfuJNZDMQJMEKXS5906-92-61 11:07:37811Vnfbtybu [place] OBJOBWRJVKAV4334-74-11 11:07:0014.3[facility] ZhdsoikOACGDBTVOB5063-99-24 11:07:00 44.5[facility] EpptphiDLRKAKXWGB3961-01-53 11:07:0015.0[facility]annHEMATOLOGY 2016-09-10 11:07:004.99[facility] NrivplhEAVNRLOMZC8524-80-60 11:07:00* Test Item Value Reference Range Interpretation Comments MCH (test code = MCH) 30.0 pg 27.0-31.0 [facility] OpiwqjrNYYUUTNVRM2715-88-54 11:07:0089.0[facility]annHEMATOLOGY 2016-09-10 11:07:83966Sfztenrv SqkhmibGVXTMGUJUY1347-44-60 11:07:0014.3[facility] DxldzbuHQGGYPNSDQ9994-39-29 11:07:0033.7[facility] PnvlyufEYTWSPQINP2727-79-74 11:07:008.6[facility] RxsfnayXJSLFFFBMJ8679-35-42 11:07:009.0[facility] OYAXXNXTUG3856-07-99 11:07:000.1[facility] NzfhayxILJROSLZLD4478-05-87 11:07:000.5 [facility] UpadrcsPKBHRWWAVK6566-74-32 11:07:005.2[facility]annHEMATOLOGY 2016-09-10 11:07:009.6[facility] QwgstpbIHDSERQVEY6396-65-14 11:07:0018.6[facility] NooospjJPRBAVGUPD5003-58-21 11:07:0066.0[facility] DjgdsocZMEPANUIYJ1148-11-25 11:07:000.9[facility] GadlbmvLRFFVDGHMH1230-40-09 11:07:001.7[facility] [place] WBNTPAPVAC0228-05-28 11:07:005.9[facility] JhthwryPLGPMUOPXY5963-58-33 11:07:000.6 [facility] HermannPARATHYROID HZSNNGB9393-57-60 11:07:001.09[facility] [place] PARATHYROID ALFRHAC4784-56-43 11:07:001.12[facility]annCHEM UIFFQ1457-51-59 09:33:000.8[facility]annCHEM LXARM3307-93-93 09:33:003.2[facility]annCHEM OATQO4016-72-15 09:33:0013.0[facility]annCHEM WYWXO9842-24-52 09:33:0016 [facility]annCHEM RHWSZ0232-57-90 09:33:0090[facility]annCHEM PANEL 2016-09-09 09:33:83947Dusxfkgt HermannCHEM KXNYO9216-77-38 09:33:004.0[facility]annCHEM SXYVQ5448-97-57 09:33:0019[facility]annCHEM NSQOS5241-47-10 09:33:000.79[facility]annCHEM WZHBZ7316-06-51 09:33:0065[facility]annCHEM LUICR6748-94-34 09:33:57619Fdizgdxw HermannCHEM OJSLD6662-19-03 09:33:0013 [facility]annCHE[facility] KNDAS9386-73-15 09:33:000.9[facility]annCHEM PANEL 2016-09-09 09:33:0016[facility]annCHEM VNXZN8421-83-68 09:33:0045[facility]annCHEM XUZLM5687-28-48 09:33:008.2[facility]annCHEM FTNGH5088-53-81 09:33:005.9[facility]annCHEM MJLOV2468-06-33 09:33:002.7[facility]annCHEM DPECO5774-93-43 09:33:0026[facility] BvehtnmUURQFCCLUE5020-79-53 09:33:0044.6 [facility] KjlncooBFGXJKPXSM0229-31-95 09:33:0090.2[facility]annHEMATOLOGY 2016-09-09 09:33:00* Test Item Value Reference Range Interpretation Comments MCH (test code = MCH) 29.4 pg 27.0-31.0 [facility] VnfkdmtNRQVCOMCNV7803-23-38 09:33:0032.6[facility] HermannHEMATOLOGY 2016-09-09 09:33:008.9[facility] UkliqdnAWCVVCEPXF8694-86-89 09:33:0014.4[facility] BliwcguURYUTSWMNW4089-86-27 09:33:21288Tpqdmgib NrwtdsbPMRKPHMESN0540-60-56 09:33:008.9[facility] JuqpkrtNYRVEKTSJD3070-84-30 09:33:004.94[facility] MRCDHLZTRE3976-51-28 09:33:0014.5[facility] OcmfnucDQNFRGQYYA8842-79-86 09:33:00 0.8[facility] WkxjyjgVHVKRXOIEL2125-62-74 09:33:000.5[facility]annHEMATOLOGY 2016-09-09 09:33:000.1[facility] GrqjuntMHQCERSDBN0418-27-50 09:33:008.8[facility] UdhjvawGTFEQUIDQQ0071-42-41 09:33:0017.1[facility] CpkamneABPGILLONX3847-85-76 09:33:0068.0[facility] LahovvdKCSDRUTPQR6563-85-07 09:33:001.5[facility] TSCRITESSD1700-59-31 09:33:006.0[facility] JgfxrtxQMDBQIGKZW9840-71-19 09:33:000.7 [facility] LzidmbtYKLFBDGJQW4714-85-54 09:33:005.4[facility] HermannCHEM PANEL 2016-09-08 10:23:002.3[facility]annCHEM HUBVX6955-09-62 10:23:001.7[facility]annCHEM BDLEH7729-40-38 10:23:000.9[facility] HermannCHEM JLIAH5365-31-94 10:23:003.5[facility]annCHEM NLOCV6232-53-73 10:23:0016[facility]annCHEM QPIRQ3488-35-45 10:23:006.5[facility] HermannCHEM MSPHL1836-39-95 10:23:003.0 [facility]annCHEM IIHKR5517-99-27 10:23:001.2[facility] HermannCHEM PANEL 2016-09-08 10:23:0055[facility] HermannCHEM KTXCF7829-21-91 10:23:0027[facility]annCHEM MHDQX8412-88-76 10:23:0019[facility] UxvcghaUGWIUVPAHT4805-99-50 10:23:001.0[facility] QabfoklRTSGGPABNI4334-85-96 10:23:000.4[facility] KKBLTHCDVJ6404-03-85 10:23:008.9[facility] GajlrnlOVIZQATYYX7238-47-47 10:23:000.3 [facility] AhtpxpeVJIKKHLJCG7064-64-89 10:23:001.1[facility] HermannHEMATOLOGY 2016-09-08 10:23:003.2[facility] NrhzanvMAIGMJOKSF7405-93-91 10:23:009.6[facility] ZzwnaqaCPGWCPNICP4110-82-46 10:23:0078.1[facility] WvzklkvVOZJTFSJTC8471-66-94 10:23:008.8[facility] AqtbtnwUZLNFDHREK2839-16-74 10:23:46566Ekrllxxt [place] VHXDTAIXUC5557-75-81 10:23:008.8[facility] UprfemdZSTOWTYNQQ8404-34-86 10:23:00 5.35[facility] LiasivhYTETANAKYR6904-78-19 10:23:0089.8[facility] HermannHEMATOLOGY 2016-09-08 10:23:0014.6[facility] MwrtcnaFINCBXEVQB2390-60-72 10:23:00* Test Item Value Reference Range Interpretation Comments MCH (test code = MCH) 29.4 pg 27.0-31.0 [facility] GhxuxviABYIJWGDDI1227-98-89 10:23:0032.7[facility] HermannHEMATOLOGY 2016-09-08 10:23:0048.1[facility] WwuwmfjQPGKCQEABD6731-71-89 10:23:0011.4[facility] SobutceWKHGAAPLIK4586-95-07 10:23:0015.7[facility] JwhdfqdOIPRXPNZTI6587-92-85 18:40:000.1[facility]annCHEST SINGLE ([facility]ABLE) [facility] [facility] [address] [address] Patient Name: SIMON ORDAZ MR #: [id number] : 1945 Age/Sex: 72/M Req #: [id number] Adm Physician: Ordered by: ROBERTA CARLSON MD Report #: [id number] Location: ER Room/Bed: Procedure: [id number] DX/CHEST SINGLE (PORTABLE) Exam Date: 08/13/17 Exam [...] ROBERTA CARLSON MD PELVIS AP 1-2 VIEWS [place] [address] Patient Name: SIMON ORDAZ MR #: [id number] : 1945 Age/Sex: 72/M Req #: [id number] Adm Physician: Ordered by: ROBERTA CARLSON MD Report #: [id number] Location: ER Room/Bed: Procedure: [id number] DX/PELVIS AP 1-2 VIEWS Exam Slade e: [...] TO: ROBERTA CARLSON MD CT BRAIN WO [place] [address] Patient Name: SIMON ORDAZ MR #: [id number] : 1945 Age/Sex: 72/M Req #: [id number] Adm Physician: Ordered by: ROBERTA CARLSON MD Report #: [id number] Location: ER Room/Bed: Procedure: [id number] CT/CT BRAIN WO Exam Date: 08/13 Exam Time: 023 REPORT STATUS: Signed EX AMINATION: Head CT [...] left posterior parietal scalp edema/hematoma. No ac [place] fracture. 2. Trace acute subarachnoid hemorrhage in the anterior inter hemispheric fissure, cingulate sulcus and parasagittal frontal cortical sulci. No midline shift or herniation. 3. Mild supratentorial white matter licha rovascular ischemic changes. 4. Generalized age-related cerebral volume lo ss. Signed by: Dr. Nicole Glover M.D. on 08/13/2017 3:51 AM Dictate d By: NICOLE GLOVER MD 0 COPY TO: ROBERTA CARLSON MD CT CERVICAL SPINE WO [place] [address] Patient Name: SIMON ORDAZ MR #: [id number] : 1945 Age/Sex: 72/M Req #: [id number] Adm Physician: Ordered by: ROBERTA CARLSON MD Report #: [id number] Location: Room/Bed: Procedure: [id number] CT/CT CERVICAL SPINE WO Exam Da te: 08/13/17 Exam Time: 0233 REPORT STATUS: Sig mandy History: Fall. Comparison studies: None Technique: Axial tom ges were obtained through the cervical region.. Coronal and sagittal images re constructed from the axial data.. Intravenous contrast: None Findings: Fractures: None. Soft tissue injuries: None. Atlantoaxial articulation: Intact. Alignment: Loss of normal cervical lordosis [...] and uncovertebral arthrosis. C6-C7: Posterior disc osteophyte complex without canal stenosis. Mild right foraminal stenosis due to facet and uncov ertebral arthrosis.. IMPRESSION: 1. No acute cervical spine fracture. Loss of normal cervical lordosis is either positional or due to muscle spasm. 2. Ligament, spinal cord and or vascular abnormalities cannot be excluded on the basis of this examination. 3. Cervical spondylosis as detailed a lucas. Signed by: Dr. Nicole Glover M.D. on 08/13/2017 3:56 AM Dictated By: NICOLE GLOVER MD 5 Transcribed By: JONI on 08/13/17355 COPY TO: ROBERTA CARLSON MD MRI SPINE LUMBAR WO [place] [address] Patient Name: SIMON ORDAZ MR #: [id number] : 1945 Age/Sex: 72/M Req #: [id number] Adm Physician: Ordered by: TANMAY DIAZ MD Report #: [id number] Location: MRI Room/Bed: Procedure: [id number] MRI/MRI SPINE LUMBAR WO Exam Da te: [...] 7:11 AM Dictated By: BASHIR CASTILLO MD 0711 Transcribed By: JONI on 06/01/17 0 711 COPY TO: TANMAY DIAZ MD DIAPHRAGMATIC FLUOR-SNIFF TEST [place] [address] Patient Name: SIMON ORDAZ MR #: [id number] : Age/Sex: 72/M Req #: [id number] Adm Physician: Ordered by: ALLISON PINZON MD Report #: [id number] Location: DX Room/Bed: Procedure: [id number] DX/DIAPHRAGMATIC FLUOR-SNIFF T EST Exam Date: 05/04/17 Exam Time: 1430 REPORT STATUS: Signed PROCEDURE: DIAPHRAGMATIC FLUOROSCOPY (SNIFF TEST) TECHNIQ UE: Multiple fluoroscopic images of bilateral hemidiaphragms were obtained during expiration and inspiration, as well as during rapid inspirations (snif f) INDICATION: Left diaphragmatic elevation. COMPARISON: Patients [facility], CT, CT CHEST WO, 03/08/2017, 12:04. FINDINGS: [...]
--- OUTSIDE RECORDS SUMMARY | 2020-01-19 13:53 | XMS REPORT | Summary of Care ---
Author Author SHARIF Veloz, SIMON DANIEL Organization Unknown Address Unknown Phone Unavailable Care Team Providers Care Print Washer Name Role Phone NIGEL OLGUIN M.D. Unavailable Unavailable TANMAY DIAZ MD Unavailable Unavailable LEA OLGUIN MD Unavailable Unavailable NIGEL OLGUIN MD Unavailable Unavailable [facility] Unavailable Unavaila ble Unavailable Unavailable Functional Status Name Dates Details Functional status health issues are not documented Status: Name Dates Details Cognitive status health issues are not d ocumented Status: Problems Name Dates Details Testosterone deficiency (259.9, E34.9) Status: Active Testicular pain (608.9, N50.819) Status: Active Persistent testicular pain (608.9, N50.9 ) Status: Active Morbid obesity (278.01, E66.01) Status: Active MRSA (methicillin resistant Staphylococc us aureus) (041.12, A49.02) Status: Active Encounter for management of wound VAC Status: Active Abdominal wall abscess (682.2, L02.211) Status: Active Wound, open, abdominal wall, anterior (8 79.2, S31.109A) Status: Active Medications Name Dates Details Multivitamins [...] banding Completed History of Ventral hernia repair Complet ed Immunization Name Dates Details PPD Lot #: [id number] on: 30-Mar-2008 Social History Name Dates Details - Status: Name Dates Details Former smoker Never smoker Vital Signs Date Test Result Details 7-Vgp-571158:52 BP Systolic 130 mm[Hg] Status: Comments: Lo [...] Instructions not documented Encounters Appointment; GERONIMO MCCABE APRN Encounter Diagnosis: Problem not documented On: 26-Feb-2018 [...] Problem not documented On: 02-Jun-2019 13:00 Appointment; NGIEL OLGUIN M.D. Encounter Diagnosis: Problem not documented On: 24-Jun-2019 14:30 Appointment; NIGEL OLGUIN M.D. Encounter Diagnosis: Problem not documented On: 15-Jul-2019 12:30 Appointment; NIGEL OLGUIN M.D. Encounter Diagnosis: Problem not documented On: 16-Sep-2019 12:30
--- OUTSIDE RECORDS SUMMARY | 2020-01-19 13:53 | XMS REPORT | Summary of Care ---
Author Author SHARIF Veloz, SIMON DANIEL Organization Unknown Address Unknown Phone Unavailable Care Team Providers Care Community Leader Name Role Phone NIGEL OLGUIN M.D. Unavailable Unavailable TANMAY DIAZ MD Unavailable Unavailable LEA OLGUIN MD Unavailable Unavailable NIGEL OLGUIN MD Unavailable Unavailable [facility] Unavailable Unavaila ble Unavailable Unavailable Functional Status [...] Immunization Name Dates Details PPD Lot #: [id number] on: 30-Mar-2008 Social History Name Dates Details - Status: Name Dates Details Former smoker Never smoker Vital Signs Date Test Result Details No Known Vitals to report Results Date Description Value Details Results not documented Plan of Care Name Dates Details Planned Observations Planned Goals not documented Planned Encounters Appointment; NIGEL OLGUIN M.D. On: 16-Sep-2019 12:30 Interventions Provided Plan* 1. Return to the clinic in 2 months Instructions Name Dates Details Instructions not documented [...]
--- OUTSIDE RECORDS SUMMARY | 2020-01-19 13:53 | XMS REPORT | Summary of Care ---
Author SIMON Potter M.A. Organization Unknown Address [facility] Phone Unavailable Care Team Providers Care Boat Outboard Engine Mechanic Name Role Phone NIGEL OLGUIN M.D. Unavailable Unavailable TANMAY DIAZ MD Unavailable Unavailable LEA OLGUIN MD Unavailable Unavailable NIGEL OLGUIN MD Unavailable Unavailable [facility] Unavailable Unavaila ble Unavailable Unavailable Functional Status [...] Immunization Name Dates Details PPD Lot #: [id number] on: 30-Mar-2008 Social History Name Dates Details - Status: Name Dates Details Former smoker Never smoker Vital Signs Date Test Result Details [id number]-Pvd-[id number]:52 BP Systolic 130 mm[Hg] Status: Comments: Lo [...] Details Planned Observations Planned Goals not documented Instructions Name Dates Details Instructions not documented [...]
[2020-01-19] MEDS ORDERED: EPHEDRINE SULFATE INJ 50 MG/ML VIAL ONE (14:04)
[2020-01-19] MEDS ORDERED: ONDANSETRON HCL INJ 2MG/ML 2ML 2 MG/ML VIAL ONE (14:04)
[2020-01-19] MEDS ORDERED: LIDOCAINE HCL 2% LOCAL INJ 5 ML SDV VIAL INJ ONE (14:04)
[2020-01-19] MEDS ORDERED: SEVOFLURANE INHAL SOLN 250 ML PEN BTL ONE (14:04)
[2020-01-19] MEDS ORDERED: LIDOCAINE HCL 2% JELLY 5 ML TUBE ONE (14:04)
[2020-01-19] MEDS ORDERED: PROPOFOL IV EMULSION 10 MG/ML 20 ML VIAL ONE (14:04)
--- NOTE | 2020-01-19 14:14 | Diagnostic Imaging Report ---
EXAM: PELVIS AP 1-2 VIEWS DATE: 01/19/2020 1:54 PM INDICATION: Postop, left hip osteoarthritis FINDINGS: Please of the examination is limited by the patient's body habitus and portable technique. There are postsurgical changes from recent left hip arthroplasty. Hardware appears intact and in anatomic alignment. Small amount of adjacent soft tissue gas noted, likely postsurgical. Overlying skin stacy noted. There is no evidence for acute fracture or dislocation. No focal lytic or blastic abnormality is identified. Moderate degenerative changes noted of the right hip. IMPRESSION: Expected postsurgical changes from recent left hip arthroplasty. Signed by: Dr. Kyle Wen MD on 01/19/2020 2:11 PM
--- NOTE | 2020-01-19 15:00 | NUR ---
Patient arrived to unit via stretcher from PACU, he has IVF infusing and he is sleeping on and off. The patients is with him and she is going home to rest or until the patient calls her back. He has foot pump connected.
[2020-01-19 15:33] VITALS: BP 127/85
[2020-01-19 15:46] VITALS: BP 127/85
[2020-01-19] MEDS: SODIUM CHLORIDE 0.9% 1000ML 1,000 ML IV SCH (16:36)
[2020-01-19] MEDS: ASPIRIN 325 MG TAB PO SCH (16:38)
[2020-01-19] MEDS: CEFAZOLIN SOD 1 GM/NS 50ML 50 ML IV SCH (16:39)
[2020-01-19] MEDS: CELECOXIB 100 MG CAP PO SCH (16:39)
[2020-01-19 16:46] VITALS: BP 137/111
[2020-01-19] MEDS ORDERED: ACETAMINOPHEN 1000 MG/100 ML IV PRN (17:00)
--- NOTE | 2020-01-19 17:00 | NUR ---
The patient is awakened to take medications and he went back to sleep. Head elevated for aspiration precautions. Snoring heard.
--- NOTE | 2020-01-19 17:10 | Operative Report ---
DATE OF PROCEDURE: 01/19/2020 SURGEON: Pritesh Rodriguez MD SURVEY DIRECTOR: Shaun Ojeda, certified PA. PREOPERATIVE DIAGNOSIS: Osteoarthritis, left hip. POSTOPERATIVE DIAGNOSIS: Osteoarthritis, left hip. PROCEDURE: Left total hip arthroplasty, * added complexity due to BMI greater than 43. INDICATIONS: The patient is a 74-year-old gentleman with a long and complicated history. He has multiple medical problems and a BMI of over 43. He has been virtually wheelchair-bound for the last two years due to hip pain and other ongoing medical issues. He has end-stage arthritis in his left hip. He presented to my office, highly motivated to proceed with a left total hip replacement. The risks and benefits of the procedure have been discussed. The added risks for perioperative complications due to his obesity have been explained. All of his questions have been answered. He states that he cannot continue in his current limited mobility. He wishes to proceed. PROCEDURE IN DETAIL: The patient was brought to the operating room and attempts were made to establish a spinal anesthetic. This was unsuccessful. He was placed under general anesthetic and positioned in the right lateral decubitus position. He received prophylactic antibiotics and tranexamic acid in the holding area. Due to his BMI of 43.6, added time and personnel were necessary due to position of the patient. Once after a preoperative time-out, a posterior approach was made to the left hip. A more extensile incision was necessary. Hemostasis was carefully obtained with electrocautery. The deep fascia was incised and a deep self-retaining Charnley retractor was placed. The posterior capsule was exposed, but was a challenging to access due to the altered surgical field. The short external rotators were partially released. The posterior capsulotomy was performed and the hip was dislocated. Additional soft tissue releases were performed to visualize the proximal femoral neck. An oscillating saw was used to remove the femoral head. Complete loss of articular cartilage was noted. Notable challenges were encountered to obtain full exposure of the acetabulum. Additional soft tissue releases were necessary. Extensive synovitis was excised. The labral remnant was removed. The posterior capsule was preserved for later repair. The true floor of the acetabulum was ultimately established with a 46 mm reamer. The socket was sequentially reamed up to 55 mm. This accomplished bleeding hemispherical cancellous bone. A Radha [employer] 56 mm outer diameter OsseoTi socket was then impacted into place. Once again, some difficulties were encountered due to the patient's body habitus. Fixation felt to be solid, but was augmented with a single 35 mm cancellous screw placed into the ilium. A highly cross-linked polyethylene liner with no posterior elevation was impacted into place. Care was taken to make sure that there was no evidence of soft tissue interposition. On multiple occasions throughout this portion and the remainder of the case, a shower tip pulsatile lavage was used extensively. The socket was packed with a moistly soaked lap sponge. Attention was directed towards the proximal femur. Additional retractors were necessary to visualize the proximal femur. A box cutting osteotome and taper pin reamer were used to establish entry to the femoral canal. The Radha [employer] Taperloc broaches were impacted. A size 13 stem had good canal fill and rotational stability. A trial reduction with a standard head and neck was felt to provide optimal christian of limb length and stability. The trial implants were removed. The hip was further irrigated with a shower tip pulsatile lavage. Additional irrigation with a diluted mixture of polymyxin and vancomycin spray was used. The Taperloc stem was impacted into place. The ceramic head and standard neck were seated onto a clean and dry stem. A final reduction was performed. The posterior capsule was carefully repaired with interrupted #2 Ethibond. The wound was irrigated and then 500 mg of vancomycin powder were sprinkled into place. A 100 mL premixed pericapsular RANDELL injection was placed into the surrounding soft tissue. The fascia was carefully closed with interrupted #2 Ethibond. The skin was closed with subcuticular Vicryl and stacy. A sterile bandage was applied. The patient was returned to the supine position. He was extubated and transported to the recovery room in stable condition. Estimated blood loss was 150 mL and all needle and sponge counts were correct. Pritesh Rodriguez MD DR/RYAN /[id number]
--- NOTE | 2020-01-19 19:18 | NUR ---
pt s/p left hip surgery- report received from day rn. Pt is alert and orienbted x3. Respirations are even and unlabored. pt sleepy but responsive to verbal stimuli. pt has not voided since 1500 surgery. abdominal dressing dry and intact. Left hip dressing dr6y and intact. call light within reach. bed inb low position. 20 g piv infusing at 100 ml hr.
--- NOTE | 2020-01-19 19:38 | NUR ---
Report given to Jacobo MARVIN at bedside.
[2020-01-19 20:00] VITALS: BP 95/51
[2020-01-19 21:00] VITALS: BP 95/51
[2020-01-19] MEDS ORDERED: ZOLPIDEM TARTRATE 5 MG TAB PO PRN (21:00)
[2020-01-19 23:41] VITALS: BP 111/63
[2020-01-20] VITALS (9 sets, daily range): BP systolic 77–111; BP diastolic 41–64
[2020-01-20] MEDS: SODIUM CHLORIDE 0.9% 1000ML 1,000 ML IV SCH ×3 (00:09→18:36)
--- NOTE | 2020-01-20 03:00 | NUR ---
pt voided 100 ml clear yellow urine. Will continue tto monitor output.
[2020-01-20] MEDS: KETOROLAC TROMETHAMINE 30 MG/ML VIAL IV PRN ×2 (04:54→18:22)
[2020-01-20] MEDS: CEFAZOLIN SOD 1 GM/NS 50ML 50 ML IV SCH ×2 (04:55→12:16)
[2020-01-20 05:34] LABS: HEMATOCRIT 39.9 % (38.2-49.6); HEMOGLOBIN 12.2 g/dL (14.0-18.0)
[2020-01-20] MEDS ORDERED: SIMETHICONE 80 MG CHEW PO ONE (06:00)
[2020-01-20] MEDS ORDERED: PANTOPRAZOLE SOD 40 MG TABEC PO ONE (06:00)
--- NOTE | 2020-01-20 06:58 | Consultation ---
DATE OF CONSULTATION: REASON FOR CONSULTATION: Postop medical management. HISTORY OF PRESENT ILLNESS: The patient is a 74-year-old gentleman, status post left hip arthroplasty for end-stage osteoarthritis. He is doing well postoperatively, but does complain of some gas pain. He denies any fever, chills, nausea, vomiting, headache, shortness of breath, or chest pain. PAST MEDICAL HISTORY: Significant for hypertension, hypothyroidism, Parkinson's, reflux disease, COPD. MEDICATIONS: See MAR. ALLERGIES: NONE. SOCIAL HISTORY: Nonsmoker. Nondrinker. Lives at home with his . FAMILY HISTORY: Noncontributory. PHYSICAL EXAMINATION: VITAL SIGNS: Temperature 97.7, pulse 71, blood pressure 111/63, sats 98% on room air. GENERAL: He is in no apparent distress, lying in bed. NECK: Supple. No lymphadenopathy. CARDIOVASCULAR: Regular rate and rhythm. LUNGS: Clear to auscultation bilaterally. ABDOMEN: Good bowel sounds. Soft, nontender, nondistended. He has a nonhealing wound to the anterior wall of his abdominal area above the umbilicus, below the sternum. EXTREMITIES: No clubbing or cyanosis. NEUROLOGIC: Nonfocal. He has been able to move all extremities x4. ASSESSMENT AND PLAN: 1. Reflux/gas pain. We will continue with his home medication and add some simethicone. 2. Chronic obstructive pulmonary disease. We will continue with his inhalers. 3. Parkinson's. Continue with his medication. 4. Hypertension. Continue with his medication. 5. Hypothyroidism. Continue with his medication. 6. Anemia. We will check a CBC. 7. Left hip pain. We will continue with physical therapy. Please see hospital chart for full details. MD ADITYA Bhakta/RYAN /[id number]
[2020-01-20] MEDS: CELECOXIB 100 MG CAP PO SCH (07:33)
[2020-01-20] MEDS: LEVOTHYROXINE SODIUM 75 MCG TAB PO SCH (07:33)
[2020-01-20] MEDS: ASPIRIN 325 MG TAB PO SCH ×4 (07:33→17:00)
[2020-01-20] MEDS: CARBIDOPA/LEVODOPA 25/100 TAB PO SCH ×2 (07:33→15:47)
[2020-01-20] MEDS: BUDESONIDE/FORMOTEROL FUMARATE 80/4.5MCG 6.9 GM INH AEROSOL IH SCH (08:00)
--- NOTE | 2020-01-20 08:00 | NUR ---
Dressing to left hip saturated in dark blood, linen and gown soaked. dressing reinforced per order and Dr. Rodriguez notified. He will come to see patient.
[2020-01-20] MEDS: VALSARTAN 80 MG TAB PO SCH ×2 (08:51→15:47)
[2020-01-20] MEDS ORDERED: ALBUTEROL SULFATE HFA 8GM INHALATION AEROSOL INH PRN (09:00)
--- NOTE | 2020-01-20 09:00 | NUR ---
New aquacel dressing applied to left hip incision. all stacy in place and incision closed.
--- NOTE | 2020-01-20 10:01 | NUR ---
RUSTAM BECKER FOR DR CADET SAYS PT WILL PROBABLY NEED ACUTE REHAB NO ORDERS OF YET CM TO FOLLOW
--- NOTE | 2020-01-20 14:39 | NUR ---
ORDERS FOR INPT AND ACUTE REHAB SPOKE WITH [facility] WHO STATES THEY WERE TOLD AFTER PT'S SURGERY BY PT'S THAT HE IS A HEAVY DRINKER CM SPOKE WITH PT'S WHO STATES PT HAS 3-4 MARGARITAS AND 4-6 BEERS EVERY NIGHT FOR YEARS LAST DRINKS WERE SUNDAY NIGHT BEFORE SURGERY ORDERS FOR [facility] CHOICE LETTER SIGNED BY PT CLINICALS FAXED TO [facility] AUTH CM CALLED AND NOTIFIED DR DIAZ AND RUSTAM HOW MUCH PT IS REPORTED DRINKING PER NIGHT ALSO D/W NURSE AND ENCOURAGED THAT PT START PROPHOLAXIS FOR DT'S [facility] WILL DELAY OR EXCLUDE PT FROM ACUTE REHAB
[2020-01-20] MEDS: CELECOXIB 200 MG CAP PO SCH (15:48)
[2020-01-20] MEDS ORDERED: SODIUM CHLORIDE 0.9% 500ML 500 ML IV ONE (16:00)
--- NOTE | 2020-01-20 17:00 | NUR ---
patient stating he did not void this afternoon, only once this morning. bladder scan showing 300. order to straight cath- 240 of dark urine obtained. sent for culture.
--- NOTE | 2020-01-20 17:12 | NUR ---
Zarina. [facility] AT [phone]
--- NOTE | 2020-01-20 17:33 | NUR ---
order to hold blood pressure medication and blood thinners from dr. loya. GEORGI Foster made aware.
--- NOTE | 2020-01-20 17:33 | NUR ---
patient blood pressure low- 77/49. dr loya made aware see orders. patient complaining of abdominal pain and has frequent loose stools. dr loya aware.
[2020-01-20] MEDS ORDERED: PANTOPRAZOLE 40 MG 10ML VIAL IV SCH (17:45)
[2020-01-20 17:55] LABS: BASOPHILS % 0.4 % (0.0-1.0); EOSINOPHILS % 0.2 % (0.0-6.0); HEMATOCRIT 38.6 % (38.2-49.6); HEMOGLOBIN 11.4 g/dL (14.0-18.0); LYMPHOCYTES # (AUTO) 1.1 (1.0-3.2); LYMPHOCYTES % 10.3 % (18.0-39.1); MEAN CORPUSCULAR HEMOGLOBIN 29.5 pg (28-32); MEAN CORPUSCULAR HGB CONC 29.5 g/dL (31-35); MEAN CORPUSCULAR VOLUME 99.7 fL (81-99); MONOCYTES # (AUTO) 1.1 (0.2-0.8); MONOCYTES % 10.2 % (4.4-11.3); NEUTROPHILS # (AUTO) 8.4 (2.1-6.9); NEUTROPHILS % 78.7 % (38.7-80.0); PLATELET COUNT 181 x10e3/uL (140-360); RED BLOOD COUNT 3.87 x10e6/uL (4.3-5.7); RED CELL DISTRIBUTION WIDTH 14.4 % (11.7-14.4)
--- NOTE | 2020-01-20 18:17 | NUR ---
500 cc bolus complete.
--- NOTE | 2020-01-20 20:54 | NUR ---
Bedside shift report received from day shift RN at 1915.Respirations are even and unlabored. o2 at 2L per n/c. Dressing to abd . dry and intact. Left hip dressing has moderate amount of old bloody drainage on dressing. dressing is intact. Pt having liquid black stools.Pt denies need to void. B/P 81/[address] Camarena notified. New orders received.CBC,Amylase,Lipase done stat. Bolus of ns [address] galan consulted for abdominal pain. Maalox started q 4hrs prn. call light within reach. Bed in low position.
[2020-01-20] MEDS: SERTRALINE HCL 100 MG TAB PO SCH (21:00)
[2020-01-20] MEDS ORDERED: MAGNESIUM/ALUMINUM/SIMETHICONE 30 ML UDC PO PRN ×2 (21:15→23:00)
[2020-01-20 23:05] LABS: BASOPHILS % 0.5 % (0.0-1.0); EOSINOPHILS % 0.3 % (0.0-6.0); HEMATOCRIT 36.3 % (38.2-49.6); HEMOGLOBIN 10.8 g/dL (14.0-18.0); LYMPHOCYTES # (AUTO) 0.7 (1.0-3.2); LYMPHOCYTES % 12.3 % (18.0-39.1); MEAN CORPUSCULAR HGB CONC 29.8 g/dL (31-35); MEAN CORPUSCULAR VOLUME 100.8 fL (81-99); MONOCYTES # (AUTO) 0.5 (0.2-0.8); MONOCYTES % 7.9 % (4.4-11.3); NEUTROPHILS # (AUTO) 4.7 (2.1-6.9); NEUTROPHILS % 78.8 % (38.7-80.0); RED CELL DISTRIBUTION WIDTH 14.1 % (11.7-14.4)
[2020-01-20 23:21] LABS: PLATELET COUNT 212 x10e3/uL (140-360)
[2020-01-21] VITALS (7 sets, daily range): BP systolic 78–100; BP diastolic 31–60
[2020-01-21] MEDS ORDERED: PANTOPRAZOLE 40 MG 10ML VIAL IV STA (01:18)
[2020-01-21] MEDS: PANTOPRAZOL 40MG/SOD CHL 0.9% 50 ML IV SCH ×3 (02:05→12:12)
[2020-01-21] MEDS: BUDESONIDE/FORMOTEROL FUMARATE 80/4.5MCG 6.9 GM INH AEROSOL IH SCH ×2 (02:06→07:01)
--- NOTE | 2020-01-21 03:00 | NUR ---
IV RESTARTED IN RT HAND. SITE INTACT- WRAPPED WITH KERLIX SO NOT PULL OUT. PROTONIX GIVEN IV. PROTONIX DRIP STARTED PER DR BLOOM ORDERS. STOOL SENT FOR OCCULT BLOOD. VS CONTINUE TO RUN LOW AT TIMES. PT DENIES NEED TO VOID. REPORTED TO DR DIAL. PT TAKING PO WELL.
[2020-01-21] MEDS: SODIUM CHLORIDE 0.9% 1000ML 1,000 ML IV SCH (06:11)
[2020-01-21] MEDS: LEVOTHYROXINE SODIUM 75 MCG TAB PO SCH (06:11)
[2020-01-21] MEDS: SUCRALFATE 1 GM/10 ML SUSP PO SCH ×3 (07:30→16:30)
--- NOTE | 2020-01-21 07:36 | NUR ---
Notified Dr. Camarena of patient's blood pressure 78/54. patient placed on telemetry per order. HR 85.
--- NOTE | 2020-01-21 08:00 | NUR ---
Pt okay to have EGD per Dr. Camarena & Dr. Rodriguez. Dr. Beck aware. patients made aware and will sign consent. pt made NPO and aware.
[2020-01-21 08:10] LABS: HEMATOCRIT 31.7 % (38.2-49.6); HEMOGLOBIN 9.9 g/dL (14.0-18.0)
[2020-01-21] MEDS: LEVALBUTEROL HCL SOLN NEBU 1.25 MG/3 ML NEB INH SCH ×2 (08:15→13:34)
[2020-01-21] MEDS: IPRATROPIUM BROMIDE 0.02% 2.5 ML NEB NEB SCH ×2 (08:15→13:34)
--- NOTE | 2020-01-21 08:15 | NUR ---
respiratory called to bedside for assessment and to administer PRN inhalers. resp therapist recommended switching to neb treatments. Dr. loya notified, orders given. see mar.
[2020-01-21] MEDS ORDERED: LEVALBUTEROL HCL SOLN NEBU 1.25 MG/3 ML NEB ONE (08:19)
[2020-01-21 08:50] LABS: ALBUMIN 2.6 g/dL (3.5-5.0); ALBUMIN/GLOBULIN RATIO 0.9 (0.8-2.0); ALKALINE PHOSPHATASE 43 IU/L (40-150); AMYLASE 634 U/L (25-125); ANION GAP 18.6 mmol/L (8-16); BLOOD UREA NITROGEN 59 mg/dL (7-26); BUN/CREATININE RATIO 12 (6-25); CALCIUM 7.8 mg/dL (8.4-10.2); CARBON DIOXIDE 17 mmol/L (22-29); CHLORIDE 107 mmol/L (98-107); CREATININE, SERUM 4.89 mg/dL (0.72-1.25); EST GLOMERULAR FILTRATION RATE 12 ML/MIN (60-); GLUCOSE 130 mg/dL (74-118); LIPASE 159 U/L (8-78); POTASSIUM 5.6 mmol/L (3.5-5.1); SODIUM 137 mmol/L (136-145)
[2020-01-21 08:56] LABS: ALANINE AMINOTRANSFERASE < 6 IU/L (0-55)
[2020-01-21] MEDS: CARBIDOPA/LEVODOPA 25/100 TAB PO SCH (09:00)
[2020-01-21] MEDS: CELECOXIB 200 MG CAP PO SCH (09:00)
[2020-01-21] MEDS: SERTRALINE HCL 100 MG TAB PO SCH (09:00)
[2020-01-21 09:13] LABS: FERRITIN 97.82 ng/mL (21.81-274.66)
--- NOTE | 2020-01-21 11:30 | NUR ---
Dr. Camarena made aware of morning lab results. EGD on hold and consult to Dr. Nam entered. attempted to call consult to Dr. Nam office with no answer x2. will attempt again.
[2020-01-21] MEDS ORDERED: SODIUM BICARBONATE 8.4% 50 ML VIAL ONE (14:06)
[2020-01-21] MEDS ORDERED: EPINEPHRINE HCL SYRINGE ONE (14:06)
[2020-01-21] MEDS ORDERED: CALCIUM CHLORIDE 10% 1.36 MEQ/ML 10ML SYR IV ONE (14:06)
[2020-01-21] MEDS ORDERED: SOD POLYSTYRENE SULFONATE SUSP 15 GM/60 ML BTL PO STA (14:54)
[2020-01-21] MEDS ORDERED: LACTULOSE SYRUP 20 GM/30 ML UDC PO STA (14:54)
--- NOTE | 2020-01-21 15:00 | NUR ---
16F harry inserted per Dr. Nam orders. 150cc urine out.
[2020-01-21] MEDS ORDERED: DEXTROSE 50% SYRINGE 50 ML IV ONE (15:15)
[2020-01-21] MEDS ORDERED: ALBUMIN 5% 250ML 500 ML IV ONE (15:25)
[2020-01-21] MEDS ORDERED: INSULIN REGULAR, HUMAN 100 UNIT/1 ML 3ML VIAL IV ONE (15:25)
--- NOTE | 2020-01-21 15:54 | NUR ---
2 amps of d50 given IV followed by 8u of regular insulin IV, per orders. patient also finished ordered kayexelate & lactulose. albumin bolus started.
[2020-01-21] MEDS ORDERED: SODIUM BICARBONATE 8.4% SYRING 150 ML in DEXTROSE 5% 1,000 ML IV SCH (16:00)
[2020-01-21] MEDS ORDERED: MULTIVITAMINS- 12 INJECTION 10 ML, THIAMINE HCL INJ 100 MG, FOLIC ACID MDV 1 MG in SODI... IV SCH (16:00)
--- NOTE | 2020-01-21 16:20 | NUR ---
PATIENT COMPLAINING OF SHORTNESS OF BREATH, INSTRUCTED TO COUGH AND CLEAR THROAT. O2 96% ON 4L. WHEEZING HEARD UPON AUSCULTATION OF LUNGS. DR. ANNE ORDERED FOR 1X DOSE OF BREATHING TREATMENTS. RESP AWARE. WCTM.
[2020-01-21 16:25] LABS: PARTIAL THROMBOPLASTIN TIME 37.1 seconds (23.8-35.5)
[2020-01-21 16:30] LABS: INR 1.15; PROTHROMBIN TIME 15.4 seconds (11.9-14.5)
[2020-01-21] MEDS ORDERED: LEVALBUTEROL 15 GM AERO IH STA (16:43)
--- NOTE | 2020-01-21 16:50 | Diagnostic Imaging Report ---
EXAM: Renal Ultrasound INDICATION: Acute kidney injury COMPARISON: None TECHNIQUE: Transverse and longitudinal images of the kidneys and bladder were obtained. FINDINGS: Right Kidney: Length: 8.0 cm Appearance: Normal echogenicity. Collecting system: No hydronephrosis Stones: None Cyst/Mass: None Left Kidney: Length: 9.1 cm Appearance: Normal echogenicity. Collecting system: No hydronephrosis Stones: None Cyst/Mass: None Bladder: Florentino catheter in the decompressed bladder. IMPRESSION: No renal calculi or hydronephrosis. Signed by: Gaby Blanchard MD on 01/21/2020 4:47 PM
[2020-01-21] MEDS ORDERED: METHYLPREDNISOLONE SOD SUCC 125 MG/2ML VIAL IV ONE (16:55)
--- NOTE | 2020-01-21 16:58 | NUR ---
PATIENT'S CAME TO DESK TO GET ME THAT PATIENT IS SWEATING AND STATING THAT HE CAN'T BREATHE. PATIENT MOVING UP IN BED AND APPEARS VERY PALE. PATIENT'S BREATHING APPEARS VERY SHALLOW. TELEMETRY CHECKED- PULSE 92. DR. PONCE CALLED TO BEDSIDE FROM REPLACED BY [facility] TO ASSESS.
--- NOTE | 2020-01-21 16:59 | NUR ---
THIS NURSE AT BEDSIDE WITNESSED PATIENT'S EYES ROLL BACK, RAPID RESPONSE CALLED. UPON ASSESSMENT, PATIENT PULSELESS AND CODE BLUE INITIATED. COMPRESSIONS IMMEDIATELY BEGAN BY ME. SEE CODE BLUE DOCUMENTATION.
[2020-01-21] MEDS ORDERED: IPRATROPIUM BROMIDE 0.02% 2.5 ML NEB NEB ONE (17:15)
--- NOTE | 2020-01-21 17:20 | NUR ---
After Dr. Amato's discussions with patient's , Isabell, she wishes to not proceed with placement of central lines for dialysis and hypothermia protocol and patient will be DNR from this point. Patient already intubated & family will come to see patient. transferred to ICU with at bedside.
[2020-01-21] MEDS ORDERED: DILTIAZEM HCL VIAL 5 ML ONE (18:06)
[2020-01-21] MEDS ORDERED: MORPHINE SULFATE 2 MG/ML SYR 1ML IV PRN (18:45)
--- NOTE | 2020-01-21 18:53 | Diagnostic Imaging Report ---
EXAM: CHEST SINGLE (PORTABLE) DATE: 01/21/2020 5:56 PM INDICATION: ^[id number] ^1756 ^S/P INTUBATION COMPARISON: Chest x-ray, 01/15/2020 FINDINGS: Lines and tubes: Interval intubation with the tip of the endotracheal tube approximately 3 cm above the adri. Heart size normal. Ill-defined air space opacities have developed throughout the right lung since last exam. There may be trace left pleural effusion. No pneumothorax seen. Upper abdomen unremarkable. No acute bony abnormality. IMPRESSION: 1. Interval intubation. Endotracheal tube tip above the adri. 2. Ill-defined airspace opacities have developed throughout the right lung suggesting possible multifocal pneumonia. Signed by: Dr. Brayan Issa M.D. on 01/21/2020 6:50 PM
--- NOTE | 2020-01-21 18:57 | NUR ---
Per 's directive as stated is the wishes of the patient, terminally extubated. Family surrounding patient in prayer. 1857 Cessation of vital signs; pronounced by Dr Jim Amato. and son state the patient directed that he be cremated by [employer] in [place].
--- NOTE | 2020-01-21 19:53 | NUR ---
DR DIAZ AND DR ANNE NOTIFIED OF PATIENT EXPIRATION. [facility] NOTIFIED, PATIENT IS CANDIDATE FOR TISSUE DONATION, AWAITING RETURN CALL. AWAITING RETURN CALL FROM [place]
--- NOTE | 2020-01-21 19:54 | Operative Report ---
DATE OF PROCEDURE: SURGEON: Orlando Amato MD PROCEDURE: Endotracheal intubation. PREOPERATIVE DIAGNOSIS: Respiratory failure. POSTOPERATIVE DIAGNOSIS: Respiratory failure. CONSENT: Consent was implied based on emergency. MEDICATIONS: None. DESCRIPTION OF PROCEDURE: CPR was in progress. Ambu bag was used to ventilate the patient. An oral airway was used. A GlideScope was then used to visualize the glottis. A 7.5 endotracheal tube was passed on the first attempt without difficulty. There was good CO2 return. There were equal breath sounds bilaterally. COMPLICATIONS: None. ESTIMATED BLOOD LOSS: None. Orlando Amato MD [facility]/MODL /[id number]
--- NOTE | 2020-01-21 20:58 | NUR ---
ME RELEASED REMAINS, CASE # [id number] [facility]. [employer] [facility] ACCEPTED REMAINS FOR TISSUE DONATION CASE # [id number] VENKATESH BARRERA. ACREMATIONS NOTIFIED TO INSPECTORS AND REGULATORY OFFICERS REMAINS
--- NOTE | 2020-01-21 21:40 | Consultation ---
DATE OF CONSULTATION: 01/21/2020 History predominantly from partly from the patient, partly from , and partly from chart. HISTORY OF PRESENT ILLNESS: A 74-year-old gentleman, who recently underwent left total hip arthroplasty for osteoarthritis of the left hip, complicated by bleeding and anemia. Had labs done today, found to have worsening serum creatinine, which is why Renal has been consulted. He is currently awake, alert, has some tremulous activity noted consistent with possible asterixis in the hands. Other than that, he is a bit sleepy, but oriented x3. by bedside. He claims that he has had a history of chronic kidney disease stage 3 apparently, last labs from Dr. Camarena's office also showed a creatinine of 1.14. He denies any history of any prostate trouble. Has a history of hypertension, hypothyroidism, underlying history of Parkinson's, history of COPD. He quit smoking many years ago. He has had prior history of atrial fibrillation with RVR. Currently denies any shortness of breath, nausea, or vomiting. Has some ongoing pain in his left hip area. ALLERGIES: HE DENIES ANY DRUG ALLERGIES. MEDICATIONS: Included valsartan, which has been stopped. Zofran p.r.n. He was on Toradol p.r.n., which I have stopped. He is on [place] p.r.n., levothyroxine 75 mcg daily, albuterol and Atrovent nebulizers. He is on Celebrex 200 mg p.o. b.i.d., carbidopa-levodopa, aspirin 325 mg daily. Ambien p.r.n. for insomnia. Normal saline at 100 mL an hour. He is also on Celebrex, which I am going to stop. He was tested stool for guaiac, was supposed to get an EGD, which actually prompted the blood test to be done. LABORATORY DATA: His most recent labsshow hemoglobin 12.2. His chemistry shows sodium 137, potassium 5.6, chloride is 107, bicarbonate 17, BUN 59, creatinine 4.89. Amylase 634, lipase 159. His iron 9, ferritin 97, transferrin sat 4. PHYSICAL EXAMINATION: GENERAL: The patient is laying supine, has a prominent abdomen. Appears to have mild audible expiratory wheeze. VITAL SIGNS: Blood pressure at the moment is 95 systolic. Pulse rate 106, afebrile, respiratory rate 17. HEAD AND NECK: Cornea clear. Oral mucosa appears dry. LUNGS: End-expiratory rhonchi bilateral. Occasional rales right base. HEART: S1 and S2 audible. ABDOMEN: Soft, nontender. Has a dressing noted mid abdomen and a scar, where he had the lap band removed. Does not have a Florentino. EXTREMITIES: Lower extremity examination, no edema. Dressing noted over left lateral side of his hip. IMPRESSION: Acute kidney injury in a patient with history of chronic kidney disease with hyperkalemia, development of acidosis, some tremors, perhaps asterixis, history of chronic obstructive pulmonary disease, recent release of lap band. I will discontinue all nonsteroidal anti-inflammatory drug medications. Agree with discontinuation of valsartan. Discontinue IV normal saline. We will give albumin IV 5% bolus for hypotension. Rule out GI bleed. Has iron-deficiency and at some point in time, I will give him IV iron in the meantime, I will start IV bicarbonate drip dose with Kayexalate, lactulose, place a Florentino catheter. Send urine tests, including a urine sodium and creatinine, calculate fractional excretion of sodium. Kidney ultrasound. Place Florentino. If there is no urinary tract obstruction, we will need dialysis for clearance. I will start multivitamin, thiamine and folic acid. The patient drinks on a regular basis. Drinks 2-3 beers with two cocktails every day. Discussed with bedside RN. In the meantime, we will also give dextrose 50% two amps IV push, regular insulin 8 units IV push. MD PATEL Tao/RYAN /[id number]
--- NOTE | 2020-01-21 22:31 | NUR ---
PATIENT REMAINS PICKED UP BY [facility]
--- NOTE | 2020-01-22 08:21 | Consultation ---
DATE OF CONSULTATION: 01/21/2020 Pulmonary Critical Care Consultation CHIEF COMPLAINT: Worsening renal failure, dyspnea, cough following total hip replacement. HISTORY OF PRESENT ILLNESS: The patient is a 74-year-old man. He has a history of some renal insufficiency. He also has a history of osteoarthritis. He went for a left hip replacement. He was seen by Nephrology today because of worsening creatinine and acidosis. Arrangements were being made for a placement of a dialysis catheter and dialysis. The Nephrology is also noted some worsening dyspnea and congestion. The patient was started on oxygen and given antibiotics. Several hours later, the patient became apneic and pulseless in the room. There was no preceding chest pain. There is no worsening respiratory problems prior to the event. The patient did have some vomiting. The patient underwent cardiopulmonary resuscitation for more than 10 minutes. The patient required epinephrine as well as bicarbonate. The patient also received cardioversion until a pulse was obtained. The patient was also intubated and placed on a mechanical ventilator. The case was discussed with the . Apparently, did have a living will and she did not feel that the hypothermia protocol or more aggressive measures would be in accordance with his wishes. PAST SURGICAL HISTORY: Hip replacement as noted above. PAST MEDICAL HISTORY: 1. Renal insufficiency. 2. Hypertension. SOCIAL HISTORY: The patient is not an active drinker or an active smoker. REVIEW OF SYSTEMS: Not obtainable. PHYSICAL EXAMINATION: VITAL SIGNS: The patient is now on a mechanical ventilator with a pressure regulated volume control. His blood pressures in the 80 to 90 range systolic and has some tachycardia. HEENT: Shows no facial swelling or erythema. He has dilated pupils. CARDIAC: Reveals regular rate and rhythm with normal S1 and S2. LUNGS: Auscultation of lungs reveals rhonchorous breath sounds bilaterally. There is no wheezing. ABDOMEN: Soft and nontender. There is no rebound or guarding. EXTREMITIES: Shows no leg edema or calf tenderness. There is no cyanosis or clubbing. SKIN: Shows no rashes. NEUROLOGICAL: Shows the patient to be unresponsive even to painful stimuli. IMPRESSION: 1. Acute renal failure. 2. Anoxic brain injury. 3. Status post cardiopulmonary arrest. 4. Aspiration pneumonia. 5. Supraventricular tachycardia. PLAN: 1. The does not want any further aggressive measures. 2. The patient will remain on the mechanical ventilator until her son can arrive. At that time, the family would like to withdraw from life support. MD MAGGY Sosa/RYAN /[id number]
--- NOTE | 2020-02-08 20:00 | Discharge Summary ---
Summary REASON FOR : secondary to respiratory failure, secondary to aspiration, secondary to alcohol abuse. HISTORY OF PRESENT ILLNESS AND HOSPITAL COURSE: See hospital chart for details. The patient is a gentleman, who had an elective surgery of his joint, who did well with the surgery, but post surgery the informed us that the patient had been drinking a severe amount of alcohol, which was to the point that Dr. Rodriguez told the that he had known how much he was drinking, he would not perform the surgery at this moment and initially postoperatively, he did well, but then started complaining of some abdominal pain, and then at one point had episodes of vomiting where he most likely aspirated, and started going into acute respiratory failure. The [facility] [employer] was immediately called. The said he would not want to be on any type of ventilator. So, we honored her wishes and made him DNR, and the patient unfortunately . Please see hospital chart for full details. MD ADITYA Bhakta/MODL /[id number]
== END 2020-01-21 22:32 | disposition expired | DRG 981 ==
LOC: OR 08:25 → PACU V 13:44 → MED/SURG 14:49 → OBSVTOIN 01-20 10:39 → ICU 01-21 17:50
PROVIDERS: ADMIT Internal Medicine; ATTEND Internal Medicine
PROC: 0SRB049 Replacement of Left Hip Joint with Ceramic on Polyethylene Synthetic Substitute, Cemented, Open Approach (ICD-10-PCS; 2020-01-19)
PROC: 5A1935Z Respiratory Ventilation, Less than 24 Consecutive Hours (ICD-10-PCS; 2020-01-19)
PROC: 0BH17EZ Insertion of Endotracheal Airway into Trachea, Via Natural or Artificial Opening (ICD-10-PCS; 2020-01-19)
PROC: 5A12012 Performance of Cardiac Output, Single, Manual (ICD-10-PCS; principal; 2020-01-21)
PROC: 5A2204Z Restoration of Cardiac Rhythm, Single (ICD-10-PCS; 2020-01-21)
DX: N17.9 Acute kidney failure, unspecified (principal); K85.90 Acute pancreatitis without necrosis or infection, unspecified; J69.0 Pneumonitis due to inhalation of food and vomit; J96.00 Acute respiratory failure, unspecified whether with hypoxia or hypercapnia; K92.1 Melena; E87.2 Acidosis; G93.1 Anoxic brain damage, not elsewhere classified; I97.121 Postprocedural cardiac arrest following other surgery; I47.1 Supraventricular tachycardia; D62 Acute posthemorrhagic anemia; M16.12 Unilateral primary osteoarthritis, left hip; E66.01 Morbid (severe) obesity due to excess calories; I10 Essential (primary) hypertension; E03.9 Hypothyroidism, unspecified; G20 Parkinson's disease; Z98.84 Bariatric surgery status; Z68.35 Body mass index [BMI] 35.0-35.9, adult; D64.9 Anemia, unspecified; K27.9 Peptic ulcer, site unspecified, unspecified as acute or chronic, without hemorrhage or perforation; K21.9 Gastro-esophageal reflux disease without esophagitis; J44.9 Chronic obstructive pulmonary disease, unspecified; N18.9 Chronic kidney disease, unspecified; R27.8 Other lack of coordination
CPT/HCPCS: 31500; 36415; 71045; 71046; 72170; 76770; 80053; 82150; 82270; 82607; 82728; 82746; 82948; 83540; 83690; 84466; 85014; 85018; 85025; 85045; 85610; 85730; 86850; 86900; 86920; 87086; 87635; 92950; 94002; 94640; 97139; C1734; C1776; G0378; J0171; J0690; J1100; J1170; J1885; J2001; J2250; J2270; J2405; J2795; J3010; J3370; J3411; J7030; J7040; J7070; J7799; P9045